=== PATIENT | female | born 1960 | race Caucasian/White ===

== ENCOUNTER 2023-10-29 15:25 | Outpatient (OUT) | payer OTHER, SELFPAY ==
--- NOTE | 2023-10-29 15:27 | MM_ITS ---
Patient Name: DEEPA ZAYAS MR#: [id number] : 1960 Exam Date: 10/29/2023 Ordering Doctor: DR Tano Kimball . RADIOLOGY REPORT PROCEDURE: MM TOMOSYNTHESIS SCREENING BI COMPARISON: MG MAMM SCREEN 3D DALE CAD, 10/20/2022. MG MAMM DALE SCRN W CAD DIG, 08/12/2016. MG MAMM DALE SCRN W CAD DIG, 12/06/2013. MG MAMM DALE SCRN W CAD DIG, 01/06/2005. INDICATIONS: screening Calculator Name NCI Breast Cancer Risk Assessment Tool 5 Year Breast Cancer Risk 3.20% Lifetime Breast Cancer Risk 13.20% Personal Breast Cancer No Personal Ovarian Cancer No Treatments None Family Cancers Mother with breast cancer at age 75; Grandmother-maternal with breast cancer at age ~70. LOCATION: [facility] BREAST COMPOSITION: Scattered areas fibroglandular density. FINDINGS: DIAGNOSTIC CATEGORY 1--NEGATIVE. RIGHT BREAST: No significant suspicious finding. No significant change has occurred. LEFT BREAST: No significant suspicious finding. No significant change has occurred. RECOMMENDATIONS: ROUTINE MAMMOGRAM AND CLINICAL EVALUATION IN 12 MONTHS. PLEASE NOTE: A NORMAL MAMMOGRAM DOES NOT EXCLUDE THE POSSIBILITY OF BREAST CANCER. A CLINICALLY SUSPICIOUS PALPABLE LUMP SHOULD BE BIOPSIED. Dictated by: Raymond Neff M.D. on 10/30/2023 at 13:22 Approved by: Raymond Neff M.D. on 10/30/2023 at 13:25
== END 2023-10-29 15:26 | disposition home or self-care (01) ==
LOC: MAMMO 15:25
PROVIDERS: PCP Family Medicine; Visit Provider Family Medicine
DX: Z12.31 Encounter for screening mammogram for malignant neoplasm of breast (principal); Z80.3 Family history of malignant neoplasm of breast
CPT/HCPCS: 77063; 77067

== ENCOUNTER 2024-02-04 15:20 | Outpatient (REF) | payer OTHER, SELFPAY ==
[2024-02-05 14:45] LABS: C. Difficile PCR NEGATIVE (NEGATIVE)
== END 2024-02-04 15:21 | disposition home or self-care (01) ==
LOC: LAB 15:20
PROVIDERS: PCP Family Medicine; Visit Provider Family Medicine
DX: R19.7 Diarrhea, unspecified (principal)
CPT/HCPCS: 87045; 87046; 87427; 87493

== ENCOUNTER 2024-02-11 15:58 | Outpatient (OUT) | payer OTHER, SELFPAY ==
--- NOTE | 2024-02-11 16:03 | US_ITS ---
The [address] [address] Patient Name: DEEPA ZAYAS MRN: [id number] date: 1960 Sex: F Assigned Patient Location: [place] Current Patient Location: Accession/Order Number: [id number] Exam Date: 02/11/2024 16:44 Report Date: 02/12/2024 07:17 At the request of: REAL BAUTISTA Procedure: US right upper quadrant EXAMINATION: US right upper quadrant HISTORY: Right upper quadrant abdominal pain R10.11 COMPARISON: No relevant comparison available. TECHNIQUE: Transabdominal evaluation of the right upper quadrant. FINDINGS: LIVER: Increased echogenicity suggestive of fatty infiltration. Color Doppler demonstrates patent hepatic veins. PORTAL VEIN: Duplex Doppler demonstrates normal hepatopetal flow pattern with flow velocity averaging 33 cm/s. GALLBLADDER: No visible gallstones, wall thickening, or pericholecystic free fluid. Negative sonographic Chapman's sign. BILIARY: Mildly dilated common bile duct, 7.5 mm proximally, with tapering to normal caliber distally. No appreciable stones or mass. PANCREASE: No visible mass, abnormal atrophy, or duct dilation. KIDNEY: Dilated renal pelvis and several dilated calyces. Size: 12.7 x 6.6 x 3.8 cm US/US right upper quadrant IMPRESSION: 1. Mildly dilated common bile duct without appreciable stones, mass, or evidence of acute cholecystitis. 2. Mild right hydronephrosis of uncertain etiology. No appreciable stones or mass. Consider CT abdomen and pelvis without and with IV contrast for further evaluation if clinically indicated. Electronically authenticated by: HAYES SINGH Date: 02/12/2024 07:17
--- OUTSIDE RECORDS SUMMARY | 2024-02-11 16:11 | XMS_ITS | CCD ---
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, DR NOBLE Primary Care Unavailable EDDIE OROSCO Consulting Unavailable HOY ., DR NOBLE Consulting Unavailable HOY ., DR NOBLE Attending Unavailable HOY ., DR NOBLE Admyordan Unavailable HOY ., DR NOBLE Primary Care Unavailable [place], DR CALLY Aguila Consulting Unavailable HOY ., DR NOBLE Consulting Unavailable HOY ., DR NOBLE Attending Unavailable HOY ., DR NOBLE Admyordan Unavailable HOY ., DR NOBLE Primary Care Unavailable CASANDRA ALLEN Attending Unavailable CASANDRA ALLEN Admitting Unavailable BRIANY ., DR NOBLE Primary Care Unavailable CASANDRA ALLEN Consulting Unavailable Real Kimball MD Primary Care Provider [phone] JOHN PINEDA Attending Unavailable CHONG KIMBALLLAS M Referring Unavailable MICHELE REAL M Primary Care Unavailable NUBIA NOGUEIRA Admitting Unavailable NUBIA NOGUEIRA E Attending Unavailable MICHELE REAL M Primary Care Unavailable CALLY ARREAGA Attending Unavailable REAL KIMBALL M Primary Care Unavailable NUBIA NOGUEIRA E Attending Unavailable GRILLIS NUBIA E Referring Unavailable HOY, REAL M Primary Care Unavailable Allergies Allergy Classification Reported Allergen(s) Allergy Type Date of Onset Reaction(s) Facility (1 source) Penicillin Drug Allergy [facility] (1 source) Sulfonamides (Antibiotic) Drug allergy (disorder) [facility] (3 sources) Penicillins; Translations: [PENICILLINS] Propensity to adverse reactions to drug 1 Swelling [facility] (3 sources) sulfabenzamide; Translations: [SULFABENZAMIDE] Drug Allergy 9 [facility] (3 sources) Sulfonamides (Antibiotic); Translations: [SULFA (SULFONAMIDE ANTIBIOTICS)] Propensity to adverse reactions to drug 4 [facility] Medications Current Medications Medication Drug Class(es) Dates Sig (Normalized) Sig (Original) lactobacillus acidophilus [id number] unt / pectin 100 mg oral tablet (1 source) take 1 tablet by mouth once daily at breakfast acidophilus-pectin , citrus 25 million cell -100 mg tablet Take 1 tablet by mouth daily with breakfast. 0 Active leflunomide 20 mg oral tablet (1 source) Antirheumatic Agent Start: 08-11-2018 take 1 tablet by mouth in the morning leflunomide (ARAVA) 20 mg tablet Take 1 tablet (20 mg total) by mouth in the morning. 0 08/11/2018 Active levothyroxine sodium 0.15 mg oral tablet (1 source) l-Thyroxine Start: 07-14-2018 take 1 tablet by mouth in the morning levothyroxine (SYNTHROID, LEVOTHROID) 150 MCG tablet Take 1 tablet (150 mcg total) by mouth in the morning. 0 07/14/2018 Active liothyronine sodium 0.005 mg oral tablet (1 source) l-Triiodothyronine Start: 08-27-2018 take 1 tablet by mouth in the morning liothyronine (CYTOMEL) 5 MCG tablet Take 1 tablet (5 mcg total) by mouth in the morning. 0 08/27/2018 Active loratadine 10 mg oral tablet (1 source) take 1 tablet by mouth in the morning loratadine (CLARITIN) 10 mg tablet Take 1 tablet (10 mg total) by mouth in the morning. 0 Active Multivitamin preparation (1 source) multivitamin (MULTI-DAY ORAL) Take by mouth. 0 Active omeprazole 40 mg delayed release oral capsule (1 source) Proton Pump Inhibitor omeprazole (PriLOSEC) 40 mg capsule Take 20 mg by mouth in the morning and at bedtime. 0 Active peg 3350-sod sulf,mkkn-ger-blu 178.7-7.3-0.5 gram recon soln (1 source) Start: 10-22-2023 End: 10-23-2023 peg 3350-sod sulf,zcra-tbe-rrq 178.7-7.3-0.5 gram recon soln Indications: Family history of malignant neoplasm of colon Take 1 kit by mouth once daily for 1 dose. Please see instructional sheet given by physicians office. 1 each 0 10/22/2023 10/23/2023 Active Turmeric extract (1 source) TURMERIC ORAL Ta ke by mouth daily. 0 Active Completed/Discontinued Medications Medication Drug Class(es) Dates Sig (Normalized) Sig (Original) pantoprazole 40 mg delayed release oral tablet (1 source) Proton Pump Inhibitor Start: 08-04-2018 End: 10-22-2023 pantoprazole (PROTONIX) 40 mg EC tablet 24 hr venlafaxine 37.5 mg extended release oral capsule (1 source) Serotonin and Norepinephrine Reuptake Inhibitor Start: 06-27-2022 End: 10-22-2023 take 1 capsule by mouth every twenty-four hours in the morning venlafaxine XR (EFFEXOR XR) 37.5 mg 24 hr capsule Indications: Vasomotor symptoms due to menopause Take 1 capsule (37.5 mg total) by mouth in the morning. 30 capsule 2 06/27/2022 10/22/2023 Discontinued (Therapy completed) Problems Active Problems Problem Classification Problem Date Documented Da te Episodic/Chronic Acute bronchitis (5 sources) Acute bronchitis, unspecified; Translations: [ACUTE BRONCHITIS UNSPECIFIED] Onset: 04-05-2022 Episodic Other screening for suspected conditions (not mental disorders or infectious disease) (5 sources) Encounter for screening mammogram for malignant neoplasm of breast; Translations: [Encounter for screening for malignant neoplasm, site unspecified] Onset: 10-20-2022 Episodic Residual codes; unclassified (1 source) Family history of malignant neoplasm of breast; Translations: [FAMILY HX MALIG NEOPLASM OF BREAST] Onset: 10-24-2022 Episodic Residual codes; unclassified (1 source) Family history of cancer of colon; Translations: [Family history of malignant neoplasm of digestive organs] 10-22-2023 Episodic Residual codes; unclassified (2 sources) Family history of malignant neoplasm of digestive organs; Translations: [Family history of malignant neoplasm of digestive organs] Onset: 10-22-2023 Episodic Unclassified (3 sources) CONTACT W/AND (SUSP) EXPOS COVID-19; Translations: [CONTACT W/AND (SUSP) EXPOS COVID-19] Onset: 04-05-2022 Unclassified (1 source) Colon Cancer Screening Onset: 10-22-2023 Unclassified (1 source) family history of colon cancer Onset: 11-05-2023 Viral infection (1 source) COVID-19; Translations: [COVID-19] Onset: 04-05-2022 Past or Other Problems Problem Classification Problem Date Documented Da te Episodic/Chronic Other aftercare (1 source) 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; Translations: [OTH FDC CURRENT DRUG THERAPY] Onset: 04-15-2022 Episodic Other lower respiratory disease (4 sources) Shortness of breath; Translations: [SHORTNESS OF BREATH] Onset: 04-14-2022 Episodic Screening and history of mental health and substance abuse codes (1 source) Personal history of nicotine dependence; Translations: [PERSONAL HISTORY OF NICOTINE DEPEND] Onset: 04-15-2022 Episodic Unclassified (1 source) CONTACT W/AND (SUSP) EXPOS COVID-19; Translations: [CONTACT W/AND (SUSP) EXPOS COVID-19] Onset: 04-02-2022 Results Test Name Value Interpretation Reference Range Facility XR CHEST 2 Von 12-24-2022 XR CHEST 2 V EXAM: XR CHEST 2 V HISTORY: Acute bronchitis . Cough for 2 months. COMPARISON: 03/22/2019 TECHNIQUE: Upright PA and lateral chest x-ray FINDINGS: The heart is not enlarged and the vasculature is not distended. No acute infiltrate, effusion or pneumothorax is identified. The osseous structures are grossly intact. IMPRESSION: No acute infiltrate or evidence of cardiac decompensation. The overall appearance of the chest is unchanged. Electronically authenticated by: EDDIE OROSCO Date: 2022-12-24 16:25 Normal [facility] MG MAMM SCREEN 3D DALE CADon 10-20-2022 MG MAMM SCREEN 3D DALE CAD Patient: CHANA DEEPA Jeffery Exam Date: 10/20/2022 : 1960 Gender:F Ordering : DR REAL KIMBALL . Admission #: [id number] Family : Order #: [id number] CLICK HERE TO VIEW EXAM RADIOLOGY REPORT PROCEDURE: MAMMOGRAM SCREENING 3D BILATERAL CAD COMPARISON: MG MAMM DALE SCRN W CAD DIG, 12/06/2013. MG MAMM DALE SCRN W CAD DIG, 08/12/2016. INDICATIONS: Screening mammography Calculator Name NCI Breast Cancer Risk Assessment Tool 5 Year Breast Cancer Risk 3.10% Lifetime Breast Cancer Risk 13.60% Personal Breast Cancer No Personal Ovarian Cancer No Treatments None Family Cancers Mother with breast cancer at age 75; Grandmother-maternal with breast cancer at age 70. LOCATION: [facility] BREAST COMPOSITION: Heterogeneously dense,which may obscure small masses. FINDINGS: DIAGNOSTIC CATEGORY 2--BENIGN FINDING. NO CHANGE FROM COMPARISON. Scattered benign-appearing calcifications are present. Scattered benign-appearing lymph nodes are present. Scattered benign-appearing nodules are present. RIGHT BREAST: No significant suspicious finding. LEFT BREAST: No significant suspicious finding. RECOMMENDATIONS: ROUTINE MAMMOGRAM AND CLINICAL EVALUATION IN 12 MONTHS. PLEASE NOTE: A NORMAL MAMMOGRAM DOES NOT EXCLUDE THE POSSIBILITY OF BREAST CANCER. A CLINICALLY SUSPICIOUS PALPABLE LUMP SHOULD BE BIOPSIED. Dictated by: Cally Sevilla MD on 10/20/2022 at 11:53 Approved by: Cally Sevilla MD on 10/20/2022 at 12:00 Normal [facility] Covid-19 PCR (CVDTB)on SARS-CoV-2 (COVID-19) RNA EMMANUEL+probe Ql (Unsp spec) Not detected Normal NOT DETECTED [facility] Comment on above: Result Comment: When diagnostic testing is negative, the possibility of a false negative should be considered in the context of a patient's recent exposures and the presence of clinical signs and symptoms consistent with SARS-CoV-2. This test is not yet approved or cleared by the [place] FDA. When there are no FDA-approved or cleared tests available, and other criteria are met, FDA can make tests available under an emergency access mechanism called an Emergency Use Authorization (EUA). The EUA for this test is supported by the Diver Pumper of Health and Human Service's declaration that circumstances exist to justify the emergency use of in vitro diagnostics for the detection and/or diagnosis of the virus that causes COVID-19. This EUA will remain in effect for the duration of the COVID-19 declaration justifying emergency of IVDs, unless it is terminated or revoked by the FDA (after which the test may no longer be used). Performed By: #### C VDTBH #### [facility] [address] [place] [address] Dr. Cindi Iniguez INFLUENZA A AND B AGon 10-08 [facility] SEE BELOW Normal [facility] Comment on above: Result Comment: Nega tive for Flu A protein angiten. Infection due to Flu A cannot be ruled out. Flu A angiten in the sample may be below the detection limit of the test. Performed By: #### C MP, BNP, HSTROPN #### [facility] [address] [place] [address] Dr. Cindi Iniguez INFLUBNEGH SEE BELOW Normal [facility] Comment on above: Result Comment: Nega tive for Flu B protein antigen. Infection due to Flu B cannot be ruled out. Flu B antigen in the sample may be below the detection limit of the test. Performed By: #### C MP, BNP, HSTROPN #### [facility] [address] [address] [address] Cindi Iniguez INFLUENZA A AG Negative Normal NEGATIVE SEE COMMENT [facility] Comment on above: Performed By: #### C MP, BNP, HSTROPN #### [facility] [address] [place] [address] Dr. Cindi Iniguez INFLUENZA B AG Negative Normal NEGATIVE SEE COMMENT [facility] Comment on above: Performed By: #### C MP, BNP, HSTROPN #### [facility] [address] [place] [address] Dr. Cindi Inigue[facility]09 SARS-CoV-2 (COVID-19) RNA EMMANUEL+probe Ql (Unsp spec) Not detected Normal NOT DETECTED [facility] Comment on above: Result Comment: When diagnostic testing is negative, the possibility of a false negative should be considered in the context of a patient's recent exposures and the presence of clinical signs and symptoms consistent with SARS-CoV-2. This test is not yet approved or cleared by the [place] FDA. When there are no FDA-approved or cleared tests available, and other criteria are met, FDA can make tests available under an emergency access mechanism called an Emergency Use Authorization (EUA). The EUA for this test is supported by the Diver Pumper of Health and Human Service's declaration that circumstances exist to justify the emergency use of in vitro diagnostics for the detection and/or diagnosis of the virus that causes COVID-19. This EUA will remain in effect for the duration of the COVID-19 declaration justifying emergency of IVDs, unless it is terminated or revoked by the FDA (after which the test may no longer be used). Performed By: #### C VDTBH #### [facility] [address] [place] [address] Dr. Cindi Iniguez BNPon 04-14-2022 Natriuretic peptide B (Bld) [Mass/Vol] 583.0 pg/mL Normal <=900.0 [facility] Comment on above: Performed By: #### C MP, BNP, HSTROPN #### [facility] [address] [place] [address] Dr. Cindi Iniguez CBC AUTO DIFFon 04-14-2022 BASO # 0.0 103/ul Normal 0.0-0.1 [facility] Comment on above: Performed By: #### C BC #### [facility] [address] [place] [address] Dr. Cindi Iniguez Basophils/100 WBC (Bld) 0.2 % Normal 0.2-2.0 [facility] Comment on above: Performed By: #### C BC #### [facility] [address] [place] [address] Dr. Cindi Iniguez EO # 0.0 103/ul Normal 0.0-0.7 [facility] Comment on above: Performed By: #### C BC #### [facility] [address] [place] [address] Dr. Cindi Iniguez Eosinophils/100 WBC (Bld) 0.3 % Critically low 0.9-7.0 [facility] Comment on above: Performed By: #### C BC #### [facility] [address] [place] [address] Dr. Cindi Iniguez Erythrocyte distribution width (RBC) [Ratio] 12.6 % Normal 11.0-15.0 [facility] Comment on above: Performed By: #### C BC #### [facility] [address] [place] [address] Dr. Cindi Iniguez Hematocrit (Bld) [Volume fraction] 43.3 % Normal 36.0-48.0 [facility] Comment on above: Performed By: #### C BC #### [facility] [address] [place] [address] Dr. Cindi Iniguez Hemoglobin (Bld) [Mass/Vol] 14.5 g/dL Normal 12.0-16.0 [facility] Comment on above: Performed By: #### C BC #### [facility] [address] [place] [address] Dr. Cindi Iniguez IG # 0.07 10e3/ul Critically high 0.00-0.03 [facility] Comment on above: Performed By: #### C BC #### [facility] [address] [place] [address] Dr. Cindi Iniguez IG % 0.5 % Normal 0.0-0.5 [facility] Comment on above: Performed By: #### C BC #### [facility] [address] [place] [address] Dr. Cindi Iniguez LYMPH # 1.8 103/ul Normal 1.2-3.8 [facility] Comment on above: Performed By: #### C BC #### [facility] [address] [place] [address] Dr. Cindi Iniguez Lymphocytes/100 WBC (Bld) 12.9 % Critically low 20.5-60.0 [facility] Comment on above: Performed By: #### C BC #### [facility] [address] [place] [address] Dr. Cindi Iniguez MANUAL DIFF REQ NO Normal [facility] Comment on above: Performed By: #### C BC #### [facility] [address] [place] [address] Dr. Cindi Iniguez MCH (RBC) [Entitic mass] 30.5 pg Normal 26.7-34.0 [facility] Comment on above: Performed By: #### C BC #### [facility] [address] [address] [address] Cindi Iniguez MCHC (RBC) [Mass/Vol] 33.5 g/dL Normal 29.9-35.2 [facility] Comment on above: Performed By: #### C BC #### [facility] [address] [address] [address] Cindi Iniguez MCV (RBC) [Entitic vol] 91.0 fL Normal 81.0-99.0 [facility] Comment on above: Performed By: #### C BC #### [facility] [address] [address] [address] Cindi Iniguez MONO # 1.0 103/ul Critically high 0.3-0.8 [facility] Comment on above: Performed By: #### C BC #### [facility] [address] [place] [address] Dr. Cindi Iniguez Monocytes/100 WBC (Bld) 7.1 % Normal 1.7-12.0 [facility] Comment on above: Performed By: #### C BC #### [facility] [address] [address] [address] Cindi nIiguez NEUT # 10.9 103/ul Critically high 1.4-6.5 The [facility] Comment on above: Performed By: #### C BC #### [facility] [address] [address] [address] Cindi Iniguez Neutrophils/100 WBC (Bld) 79.0 % Critically high 43.0-75.0 [facility] Comment on above: Performed By: #### C BC #### [facility] [address] [address] [address] Cindi Iniguez Platelet mean volume (Bld) [Entitic vol] 8.8 fL Critically low 9.5-13.5 [facility] Comment on above: Performed By: #### C BC #### [facility] [address] [address] [address] Cindi Iniguez PLT 207 103/ul Normal 150-450 [facility] Comment on above: Performed By: #### C BC #### [facility] [address] [address] [address] Cindi Iniguez RBC 4.76 106/ul Normal 4.20-5.40 [facility] Comment on above: Performed By: #### C BC #### [facility] [address] [address] [address] Cindi Iniguez WBC 13.8 103/ul Critically high 4.0-11.0 [facility] Comment on above: Performed By: #### C BC #### [facility] [address] [address] [address] Cindi Iniguez CTA CHEST WO W CONon CTA CHEST WO W CON EXAMINATION:CTA CHEST WO W CON INDICATION:SHORTNESS OF BREATH, recent Covid. COMPARISON:None TECHNIQUE:Thin section transaxial slices were acquired through the chest. Coronal and sagittal reconstructed images were reviewed. IV CONTRAST:With FINDINGS: LUNGS: There is some very minimal breathing motion artifact with mild bibasilar atelectatic changes present. No suspicious airspace disease is present to suggest infection. PLEURAL CAVITY: No pleural effusion. MEDIASTINUM: Trachea and central airways are patent. HEART: There is no right heart strain. VASCULAR:The thoracic aorta is normal in caliber without aneurysm or dissection. No pulmonary arterial filling defects are present. LYMPH NODES:No suspicious lymphadenopathy. CHEST WALL/AXILLA: Chest wall and axilla are unremarkable. BONES: Unremarkable. VISUALIZED UPPER ABDOMEN: Upper abdominal structures are unremarkable. IMPRESSION: Unremarkable CT angiogram of the chest. Electronically authenticated by: HERNÁN BAR Date: 2022-04-14 16:28 Normal [facility] PROF 14(COMP METB)on Albumin [Mass/Vol] 3.5 g/dL Normal 3.4-5.0 [facility] Comment on above: Performed By: #### C MP, BNP, HSTROPN #### [facility] [address] [address] [address] Cindi Iniguez Albumin/Globulin [Mass ratio] 1.0 {ratio} Normal [facility] Comment on above: Performed By: #### C MP, BNP, HSTROPN #### [facility] [address] [place] [address] Dr. Cindi Iniguez ALP [Catalytic activity/Vol] 64 U/L Normal 46-116 [facility] Comment on above: Performed By: #### C MP, BNP, HSTROPN #### [facility] [address] [place] [address] Dr. Cindi Iniguez ALT [Catalytic activity/Vol] 44 U/L Normal 14-59 [facility] Comment on above: Performed By: #### C MP, BNP, HSTROPN #### [facility] [address] [place] [address] Dr. Cindi Iniguez Anion gap [Moles/Vol] 12.5 mmol/L Normal [facility] Comment on above: Performed By: #### C MP, BNP, HSTROPN #### [facility] [address] [place] [address] Dr. Cindi Iniguez AST [Catalytic activity/Vol] 21 U/L Normal 15-37 [facility] Comment on above: Performed By: #### C MP, BNP, HSTROPN #### [facility] [address] [place] [address] Dr. Cindi Iniguez Bilirubin [Mass/Vol] 0.3 mg/dL Normal 0.2-1.0 [facility] Comment on above: Performed By: #### C MP, BNP, HSTROPN #### [facility] [address] [place] [address] Dr. Cindi Iniguez Calcium [Mass/Vol] 9.1 mg/dL Normal 8.5-10.1 [facility] Comment on above: Performed By: #### C MP, BNP, HSTROPN #### [facility] [address] [place] [address] Dr. Cindi Iniguez Chloride [Moles/Vol] 97 mmol/L Critically low 98-107 [facility] Comment on above: Performed By: #### C MP, BNP, HSTROPN #### [facility] [address] [address] [address] Cindi Iniguez CO2 [Moles/Vol] 29.8 mmol/L Normal 21.0-32.0 [facility] Comment on above: Performed By: #### C MP, BNP, HSTROPN #### [facility] [address] [place] [address] Dr. Cindi Iniguez Creatinine [Mass/Vol] 1.06 mg/dL Critically high 0.55-1.02 [facility] Comment on above: Performed By: #### C MP, BNP, HSTROPN #### [facility] [address] [place] [address] Dr. Cindi Iniguez EGFR-AF HUNGARIAN >60 Normal >=60 [facility] Comment on above: Performed By: #### C MP, BNP, HSTROPN #### [facility] [address] [place] [address] Dr. Cindi Iniguez EGFR-NON AF HUNGARIAN 53 mL/min/1.73m2 Critically low >=60 [facility] Comment on above: Performed By: #### C MP, BNP, HSTROPN #### [facility] [address] [place] [address] Dr. Cindi Iniguez Globulin (S) [Mass/Vol] 3.6 g/dL Normal [facility] Comment on above: Performed By: #### C MP, BNP, HSTROPN #### [facility] [address] [place] [address] Dr. iCndi Iniguez Glucose [Mass/Vol] 109 mg/dL Critically high 74-[address] [facility] Comment on above: Performed By: #### C MP, BNP, HSTROPN #### [facility] [address] [place] [address] Dr. Cindi Iniguez Potassium [Moles/Vol] 4.3 mmol/L Normal 3.5-5.1 [facility] Comment on above: Performed By: #### C MP, BNP, HSTROPN #### [facility] [address] [place] [address] Dr. Cindi Iniguez Protein [Mass/Vol] 7.1 g/dL Normal 6.4-8.2 [facility] Comment on above: Performed By: #### C MP, BNP, HSTROPN #### [facility] [address] [place] [address] Dr. Cindi Iniguez Sodium [Moles/Vol] 135 mmol/L Critically low 136-145 [facility] Comment on above: Performed By: #### C MP, BNP, HSTROPN #### [facility] [address] [place] [address] Dr. Cindi Iniguez Urea nitrogen [Mass/Vol] 17.0 mg/dL Normal 7.0-18.0 [facility] Comment on above: Performed By: #### C MP, BNP, HSTROPN #### [facility] [address] [place] [address] Dr. Cindi Iniguez Urea nitrogen/Creatinine [Mass ratio] 16.0 mg/mg Normal [facility] Comment on above: Performed By: #### C MP, BNP, HSTROPN #### [facility] [address] [place] [address] Dr. Cindi Iniguez PROTIMEon 04-14-2022 INR Coag (PPP) [Relative time] 0.93 {INR} Normal [facility] Comment on above: Performed By: #### P TT, PT #### [facility] [address] [place] [address] Dr. Cindi Iniguez INR GUIDELINES SEE BELOW Normal [facility] Comment on above: Result Comment: MESSI RED INR: 2.0 - 3.0 CONDITIONS NOT LISTED BELOW 2.5 - 3.5 FOR PROSTHETIC HEART VALVE REPLACEMENT 2.5 - 3.5 RECURRENT THROMBOSIS Performed By: #### P TT, PT #### [facility] [address] [place] [address] Dr. Cindi Iniguez PT Coag (PPP) [Time] 10.1 s Normal 9.0-11.6 [facility] Comment on above: Performed By: #### P TT, PT #### [facility] [address] [place] [address] Dr. Cindi Iniguez PTTon 04-14-2022 aPTT Coag (Bld) [Time] 23.8 s Normal 22.3-36.2 [facility] Comment on above: Performed By: #### C MP, BNP, HSTROPN #### [facility] [address] [address] [address] Cindi Iniguez TROPONIN, HIGH SENSITIVITYon 04-14-2022 HSTROP 27.4 pg/mL Normal 4.0-51.3 [facility] Comment on above: Result Comment: CUT- OFF POINTS HAVE BEEN ESTABLISHED BASED ON THE FOURTH UNIVERSAL DEFINITIONS OF MYOCARDIAL INFARCTION. THE UPPER REFERENCE LIMIT (URL) OF TROPONIN, DEFINED THE 99TH PERCENTILE OF cTnI DISTRIBUTION IN A REFERENCE POPULATION, HAS BEEN CONFIRMED THE DECISION THRESHOLD FOR OR DIAGNOSIS. Performed By: #### C MP, BNP, HSTROPN #### [facility] [address] [place] [address] Dr. Cindi Inigue[facility]08 SARS-CoV-2 (COVID-19) RNA EMMANUEL+probe Ql (Unsp spec) Detected Critically abnormal NOT DETECTED [facility] Comment on above: Result Comment: This test is not yet approved or cleared by the [place] FDA. When there are no FDA-approved or cleared tests available, and other criteria are met, FDA can make tests available under an emergency access mechanism called an Emergency Use Authorization (EUA). The EUA for this test is supported by the [place] of Health and Human Service's (HHS's) declaration that circumstances exist to justify the emergency use of in vitro diagnostics for the detection and/or diagnosis of the virus that causes COVID-19. This EUA will remain in effect (meaning this test can be used) for the duration of the COVID-19 declaration justifying emergency of IVDs, unless it is terminated or revoked by FDA (after which the test may no longer be used). Performed By: #### C MP, BNP, HSTROPN #### [facility] [address] [place] [address] Dr. Cindi Iniguez Vital Signs Date Time Vital Sign Value Performing Clinician Faci lity 10-22-2023 15:23-0500 Body mass index (BMI) [Ratio] 36.39 kg/m2 John Pineda [employer] Work Phone: [facility] 10-22-2023 15:23-0500 Body weight 96.16 kg John Pineda [employer] Work Phone: [facility] Encounters Encounter Date Encounter Type Care Provider Facility Start: 11-06-2023 End: 11-06-2023 Evaluation and management of inpatient CALLY ARREAGA [facility] Start: 11-05-2023 End: 11-06-2023 Evaluation and management of inpatient NUBIA NOGUEIRA [facility] Start: 10-22-2023 ambulatory [facility] Jennifer PINEDA [facility] Start: 10-22-2023 End: 10-22-2023 Office outpatient new 30 minutes John Rodriguez Ross [employer] Work Phone: [facility] Comment on above: Family history of ma lignant neoplasm of colon (Primary Dx) Start: 12-24-2022 End: 12-25-[address] REAL KIMBALL . Facility:[facility] Start: 10-20-2022 End: 10-21-[address] REAL KIMBALL . Facility:[facility] Start: 10-08-2022 End: 10-08-[address] REAL KIMBALL . Facility:[facility] Start: 08-05-2022 End: 08-05-2022 ambulatory CASANDRA ALLEN Facility:[facility] Start: 04-14-2022 End: 04-14-2022 ambulatory AVREY MCKNIGHT Facility:[facility] Start: 04-02-2022 End: 04-02-[address] REAL KIMBALL . Facility:[facility] Start: 02-20-[address] REAL KIMBALL . Facili ty:[facility] Procedures Date Procedure Procedure Detail Performing Clinician Start: 10-11-2018 Colonoscopy John Caitlin núñez [employer] Work Phone: Plan of Treatment Date Care Activity Detail Author Start: 10-22-2024 Adult BMI Screening Adult BMI Screen ing [facility] Start: 10-22-2024 Tobacco Screening Tobacco Screening [facility] Start: 11-05-2023 End: 11-05-2023 Admission to same day surgery center 11/05/2023 11:00 AM EST - 11/05/2023 11:30 AM EST Surgery [facility] [address] [place] [address] Nubai Nogueira, DO [address] [place], [place] [id number] COLONOSCOPY DIAGNOSTIC / SCREENING [37553 (CPT )] [facility] Comment on above: COLONOSCOPY DIAGNOST IC / SCREENING [96468 (CPT )] Start: 11-05-2023 End: 11-05-2023 Colonoscopy flx dx w/collj spec when pfrmd COLONOSCOPY DIAGNOSTIC / SCREENING Family history of colon cancer 11/05/2023 11:00 AM [facility] Start: 11-05-2023 Subsequent hospital visit by physician 11/05/2023 11:00 AM EST Hospital Encounter [facility] [address] [place] [address] [phone] Nubia Nogueira, DO [address] [place], [place] [id number] [facility] Start: 10-29-2023 End: 10-29-2023 ambulatory 10/29/2023 2:10 PM EST Support Visit [facility] - Pre Admit [address] [place] [address] [facility] - Pre Admit Start: 10-11-2023 Screening for malign ant neoplasm of colon Colonoscopy [facility] Start: 2010 Administration of varicella zoster vaccine Zoster (Shingles) Vaccine (1 of 2) [facility] Start: 1979 DTaP,Tdap and Td Vac cines (1 - Tdap) DTaP,Tdap and Td Vaccines (1 - Tdap) [facility] Start: 1978 Adult BMI Follow Up Plan Adult BMI Follow Up Plan [facility] Start: 1972 [facility] End: 10-22-2024 Colonoscopy Colonoscopy GI Routine Family history of malignant neoplasm of colon 1 Occurrences starting 10/22/2023 until 10/22/2024 [employer] Work Phone: Comment on above: 1 Occurrences starti ng 10/22/2023 until 10/22/2024 Payers Date Payer Category Payer Private Health Insurance [facility] PLUS [id number] 2023-Present [phone] [address] [address] [place] [address] [id number] 1960 Unknown [id number] [id number]. 2.593 1960 Unknown [id number] 2.16.840.1.245530.3.579. 2.593 1960 Unknown [id number] 2.16.840.1.827791.3.579. 2.593 1960 Unknown [id number] 2.16.840.1.914458.3.579. 2.593 1960 Unknown [id number] 2.16.840.1.460485.3.579. 2.593 1960 Unknown [id number] 2.16.840.1.743138.3.579. 2.593 1960 Unknown [id number] 2.16.840.1.141822.3.579. 2.593 1960 Unknown [id number] 2.16.840.1.485560.3.579. 2.1286 1960 Unknown [id number] 2.16.840.1.403270.3.579. 2.1286 1960 Unknown [id number] 2.16.840.1.056141.3.579. 2.1286 1960 Unknown [id number] 2.16.840.1.597898.3.579. 2.1286 1960 Unknown [id number] 2.16.840.1.627028.3.579. 2.1286 1959 Private Health Insurance [id number] Self-pay [id number] Social History Date Type Detail Facility Start: 12-31-2022 Tobacco smoking stat [facility] Ex-smoker [facility] End: 08-28-1998 History of tobacco use Current smoker [facility] End: 08-28-1998 History of tobacco use Cigarette Smoker [facility] Start: 12-31-2022 Tobacco use and exposure Smoke less tobacco non-user [facility] Start: 10-22-2023 Alcohol intake Current drinke r of alcohol (finding) [facility] Start: 10-18-2020 End: 12-30-2021 History of Social function [facility] Work Phone: Start: 10-18-2020 End: 12-30-2021 Alcohol Use Disorder Identification Test - Consumption [AUDIT-C] [facility] Work Phone: How often to you hav e a drink containing alcohol? Monthly or less [facility] Work Phone: How many standard dr inks containing alcohol do you have on a typical day? 5 or 6 [facility] How often do you hav e 6 or more drinks on 1 occasion? Less than monthly [facility] Childcare Unknown 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 Chief Complaint: Family history of colon cancer History of Present Illness Deepa Sears is a 63 y.o. female who presents to the office for colonoscopy due to family history of colon cancer. Her mother had colon cancer and was diagnosed in her late 60s. Patient denies diarrhea, constipation, abdominal pain, melena, hematochezia, unexplained weight loss. Her last colonoscopy was in [address] Nogueira and was normal. Review of Systems Constitutional: Negative for fever and unexpected weight change. HENT: Negative for trouble swallowing. Respiratory: Positive for shortness of breath. SOB with exertion Cardiovascular: Negative for chest pain. Gastrointestinal: Negative for nausea, vomiting, abdominal pain, diarrhea, constipation and blood in stool. Genitourinary: Negative for dysuria and difficulty urinating. Musculoskeletal: Negative for gait problem. Skin: Negative for rash and wound. Neurological: Negative for dizziness, weakness and light-headedness. Hematological: Does not bruise/bleed easily. Psychiatric/Behavioral: Negative for confusion. Past Medical History: Diagnosis Date Arthritis Hypothyroidism Thyroid disease Visual impairment Past Surgical History: Procedure Laterality Date COLONOSCOPY N/A 10/11/2018 Performed by Nubia Nogueira DO at [facility] ESOPHAGOGASTRODUODENOSCOPY N/A 07/04/2021 Performed by Nubia Nogueira DO at [facility] HYSTERECTOMY 2008 OOPHORECTOMY Allergies Allergen Reactions Penicillins Swelling Sulfabenzamide Swelling Lips swell Sulfa (Sulfonamide Antibiotics) Current Outpatient Medications: acidophilus-pectin, citrus 25 million cell -100 mg tablet, Take 1 tablet by mouth daily with breakfast., Disp: , Rfl: leflunomide (ARAVA) 20 mg tablet, Take 1 tablet (20 mg total) by mouth in the morning., Disp: , Rfl: levothyroxine (SYNTHROID, LEVOTHROID) 150 MCG tablet, Take 1 tablet (150 mcg total) by mouth in the morning., Disp: , Rfl: liothyronine (CYTOMEL) 5 MCG tablet, Take 1 tablet (5 mcg total) by mouth in the morning., Disp: , Rfl: loratadine (CLARITIN) 10 mg tablet, Take 1 tablet (10 mg total) by mouth in the morning., Disp: , Rfl: multivitamin (MULTI-DAY ORAL), Take by mouth., Disp: , Rfl: omeprazole (PriLOSEC) 40 mg capsule, Take 20 mg by mouth in the morning and at bedtime., Disp: , Rfl: TURMERIC ORAL, Take by mouth daily., Disp: , Rfl: peg 3350-sod sulf,ovto-tni-aho 178.7-7.3-0.5 gram recon soln, Take 1 kit by mouth once daily for 1 dose. Please see instructional sheet given by physicians office., Disp: 1 each, Rfl: 0 Social History Socioeconomic History Marital status: Spouse name: Not on file Number of children: Not on file Years of education: Not on file Highest education level: Not on file Occupational History Not on file Tobacco Use Smoking status: Former Types: Cigarettes Quit date: 08/28/1998 Years since quittin.1 Smokeless tobacco: Never Vaping Use Vaping Use: Never used Substance and Sexual Activity Alcohol use: Yes Comment: social Drug use: No Sexual activity: Defer Comment: hysterectomy Other Topics Concern Not on file Social History Narrative Not on file Social Determinants of Health Financial Resource Strain: Not on file Food Insecurity: Not on file Transportation Needs: Not on file Physical Activity: Not on file Stress: Not on file Social Connections: Not on file Interpersonal Safety: Not on file Housing Instability: Not on file Family History Problem Relation Age of Onset Breast cancer Mother 70 Colon cancer Mother COPD Mother Heart disease Mother No Known Problems Father Epilepsy Brother Diabetes Brother Objective Physical Exam Constitutional: General: She is not in acute distress. Appearance: Normal appearance. She is obese. She is not ill-appearing. HENT: Head: Normocephalic and atraumatic. Mouth/Throat: Mouth: Mucous membranes are moist. Eyes: Pupils: Pupils are equal, round, and reactive to light. Cardiovascular: Rate and Rhythm: Normal rate. Pulmonary: Effort: Pulmonary effort is normal. No respiratory distress. Abdominal: General: There is no distension. Palpations: Abdomen is soft. Tenderness: There is no abdominal tenderness. There is no guarding. Musculoskeletal: General: Normal range of motion. Skin: General: Skin is warm and dry. Neurological: Mental Status: She is alert and oriented to person, place, and time. Mental status is at baseline. Vital Signs: Weight 96.2 kg (212 lb). Respiratory Source: No data recorded Admission Weight: Weight: 96.2 kg (212 lb) Labs No results found for: WBC , HGB , HCT , MCV , PLT No results found for: GLU , CALCIUM , NA , K , CO2 , CL , BUN , CREATININE No results found for: AMYLASE No results found for: LIPASE No results found for: ALT , AST , GGT , ALKPHOS , LABBILI No results found for: INR , PROTIME Assessment Deepa Sears is a 63 y.o.female who presents to the office for colonoscopy due to family history of colon cancer. Plan Colonoscopy with possible biopsy and/or polypectomy. Risks, benefits, and alternatives discussed with patient. Educated on bowel evacuation preparation. Patient verbalizes understanding and wishes to proceed. Evaluation included: Preparing to see the patient (e.g., review of tests) Obtaining and/or reviewing separately obtained history Performing a medically appropriate examination and/or evaluation Counseling and educating the patient/family/caregiver Referring and communicating with other health lead care manager Family history of malignant neoplasm of colon [Z80.0] BETTY SMITH [facility] [place] This note was created with the assistance of a speech recognition program. While intending to generate a timely document that accurately reflects the content of the visit, no guarantee can be provided that every grammatical or spelling mistake has been or will be identified or corrected. Thank you for your understanding. BETTY Smith 10/22/23 1550 documented in this encounter [facility] Evaluation note Note Date & Type Note Facility Evaluation note Diagnosis Family history of malignant neoplasm of colon- Primary Family history of colon cancer Family history of malignant neoplasm of gastrointestinal tract documented in this encounter [facility] Instructions Note Date & Type Note Facility Instructions Not on filedocumented in this en counter [facility] Summary Purpose Family History No Family History Records FoundNo Family History Records FoundNo Family History Records Found Advance Directives No Advanced Directives Records FoundNo Advanced Directives Records FoundNo Advanced Directives Records Found Additional Source Comments INFORMATION SOURCE (unrecogn ized section and content) DATE CREATED AUTHOR 12/28/2022 [facility] DATE CREATED AUTHOR AUTHOR'S ORGANIZ ATION 10/28/2023 [facility] DATE CREATED AUTHOR AUTHOR'S ORGANIZ ATION 11/07/2023 [facility] Reason for Visit (unrecogniz ed section and content) Reason Comments Colon Cancer Screening 5 year recall, sam finley history of colon cancer Care Teams (unrecognized sec tion and content) [employer]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 This clinical summary was aggregated from multiple sources. Caution should be exercised in using it in the provision of clinical care. This summary normalizes information from multiple sources, and as a consequence, information in this document may materially change the coding, format and clinical context of patient data. In addition, data may be omitted in some cases. CLINICAL DECISIONS SHOULD BE BASED ON THE PRIMARY CLINICAL RECORDS. [employer] [facility]. provides no warranty or guarantee of the accuracy or completeness of information in this document.
== END 2024-02-11 15:59 | disposition home or self-care (01) ==
LOC: US 15:58
PROVIDERS: PCP Family Medicine; Visit Provider Family Medicine
DX: R10.11 Right upper quadrant pain (principal); N13.30 Unspecified hydronephrosis
CPT/HCPCS: 76705

== ENCOUNTER 2024-02-15 06:08 | Emergency (ER) | payer OTHER, SELFPAY ==
[2024-02-15] VITALS (10 sets, daily range): BP systolic 132–151; BP diastolic 62–95; PULSE 78–80; TEMP 36.6–36.8; O2SAT 92–99; BMI 30.9
--- OUTSIDE RECORDS SUMMARY | 2024-02-15 06:14 | XMS_ITS | CCD ---
Author Organization [facility] Care Team Providers Care Muck Operator Name Role Phone AVERY MCKNIGHT Attending Unavailable HOY ., DR NOBLE Primary Care Unavailable KAYLI ., DEEPTI PHILLIP Consulting Unavailabl e AVERY MCKNIGHT Admitting Unavailable STRAWSER HRENÁN Consulting Unavailable HOY ., DR NOBLE Attending [...] HOY ., DR NOBLE Primary Care Unavailable POLLOCK, DR CALLY Aguila Consulting Unavailable HOY ., DR NOBLE Consulting Unavailable HOY ., DR NOBLE Attending Unavailable HOY ., DR NOBLE Admyordan Unavailable HOY ., DR NOBLE Primary Care Unavailable CASANDRA ALLEN Attending Unavailable CASANDRA ALLEN Admitting Unavailable BRIANY ., DR NOBLE Primary Care Unavailable CASANDRA ALLEN Consulting Unavailable Real Kimball MD Primary Care Provider [phone] JOHN PINEDA Attending Unavailable CHONG KIMBALLLAS M Referring Unavailable MICHELE REAL M Primary Care Unavailable NUBIA NOGUEIRA Admitting Unavailable NUBIA NOGUEIRA E Attending Unavailable MICHELE RAEL M Primary Care Unavailable CALLY ARREAGA Attending Unavailable REAL KIMBALL M Primary Care Unavailable NUBIA NOGUEIRA E Attending Unavailable GRILLIS NUBIA E Referring Unavailable HOY, REAL M Primary Care Unavailable Allergies Allergy Classification Reported Allergen(s) Allergy Type Date of Onset Reaction(s) Facility (1 source) Penicillin Drug Allergy [facility] (1 source) Sulfonamides (Antibiotic) Drug allergy (disorder) [facility] (3 sources) Penicillins; Translations: [PENICILLINS] Propensity to adverse reactions to drug 1 Swelling [facility] (3 sources) sulfabenzamide; Translations: [SULFABENZAMIDE] Drug Allergy 9 [facility] (3 sources) Sulfonamides (Antibiotic); Translations: [SULFA (SULFONAMIDE ANTIBIOTICS)] Propensity to adverse reactions to drug 4 [facility] Medications Current Medications Medication Drug Class(es) Dates Sig (Normalized) Sig (Original) lactobacillus acidophilus [id number] unt / pectin 100 mg oral tablet [...] and at bedtime. 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 Admission #: [id number] Family : Order #: [id number] CLICK HERE TO VIEW EXAM RADIOLOGY REPORT [...] breast cancer at age 70. LOCATION: [facility] BREAST COMPOSITION: Heterogeneously dense,which may obscure small [...] MD on 10/20/2022 at 12:00 Normal [facility] Covid-19 PCR (CVDTB)on SARS-CoV-2 (COVID-19) RNA EMMANUEL+probe Ql (Unsp spec) Not detected Normal NOT DETECTED [facility] Comment on above: Result Comment: When diagnostic [...] for this test is supported by the [place] of Health and Human Service's declaration that [...] used). Performed By: #### C VDTBH #### [facility] [address] [place] [address] Dr. Cindi Iniguez INFLUENZA A AND B AGon 10-08 [facility] SEE BELOW Normal [facility] Comment on above: Result Comment: Nega tive for Flu A protein angiten. Infection due to Flu A cannot be ruled out. Flu A angiten in the sample may be below the detection limit of the test. Performed By: #### C MP, BNP, HSTROPN #### [facility] [address] [place] [address] Dr. Cindi Iniguez INFLUBNEGH SEE BELOW Normal [facility] Comment on above: Result Comment: Nega tive for Flu B protein antigen. Infection due to Flu B cannot be ruled out. Flu B antigen in the sample may be below the detection limit of the test. Performed By: #### C MP, BNP, HSTROPN #### [facility] [address] [address] [address] Cindi Iniguez INFLUENZA A AG Negative Normal NEGATIVE SEE COMMENT [facility] Comment on above: Performed By: #### C MP, BNP, HSTROPN #### [facility] [address] [place] [address] Dr. Cindi Iniguez INFLUENZA B AG Negative Normal NEGATIVE SEE COMMENT [facility] Comment on above: Performed By: #### C MP, BNP, HSTROPN #### [facility] [address] [place] [address] Dr. Cindi Iniguez Cov[facility]-19 PCR ([facility]on 07-09 SARS-CoV-2 (COVID-19) RNA EMMANUEL+probe Ql (Unsp spec) Not detected Normal NOT DETECTED [facility] Comment on above: Result Comment: When diagnostic [...] for this test is supported by the [employer] of Health and Human Service's declaration that [...] used). Performed By: #### C VDTBH #### [facility] [address] [place] [address] Dr. Cindi Iniguez BNPon 04-14-2022 Natriuretic peptide B (Bld) [Mass/Vol] 583.0 pg/mL Normal <=900.0 [facility] Comment on above: Performed By: #### C MP, BNP, HSTROPN #### [facility] [address] [place] [address] Dr. Cindi Iniguez CBC AUTO DIFFon 04-14-2022 BASO # 0.0 103/ul Normal 0.0-0.1 [facility] Comment on above: Performed By: #### C BC #### [facility] [address] [place] [address] Dr. Cindi Iniguez Basophils/100 WBC (Bld) 0.2 % Normal 0.2-2.0 [facility] Comment on above: Performed By: #### C BC #### [facility] [address] [place] [address] Dr. Cindi Iniguez EO # 0.0 103/ul Normal 0.0-0.7 [facility] Comment on above: Performed By: #### C BC #### [facility] [address] [place] [address] Dr. Cindi Iniguez Eosinophils/100 WBC (Bld) 0.3 % Critically low 0.9-7.0 [facility] Comment on above: Performed By: #### C BC #### [facility] [address] [place] [address] Dr. Cindi Iniguez Erythrocyte distribution width (RBC) [Ratio] 12.6 % Normal 11.0-15.0 [facility] Comment on above: Performed By: #### C BC #### [facility] [address] [place] [address] Dr. Cindi Iniguez Hematocrit (Bld) [Volume fraction] 43.3 % Normal 36.0-48.0 [facility] Comment on above: Performed By: #### C BC #### [facility] [address] [place] [address] Dr. Cindi Iniguez Hemoglobin (Bld) [Mass/Vol] 14.5 g/dL Normal 12.0-16.0 [facility] Comment on above: Performed By: #### C BC #### [facility] [address] [place] [address] Dr. Cindi Iniguez IG # 0.07 10e3/ul Critically high 0.00-0.03 [facility] Comment on above: Performed By: #### C BC #### [facility] [address] [place] [address] Dr. Cindi Iniguez IG % 0.5 % Normal 0.0-0.5 [facility] Comment on above: Performed By: #### C BC #### [facility] [address] [place] [address] Dr. Cindi Iniguez LYMPH # 1.8 103/ul Normal 1.2-3.8 [facility] Comment on above: Performed By: #### C BC #### [facility] [address] [place] [address] Dr. Cindi Iniguez Lymphocytes/100 WBC (Bld) 12.9 % Critically low 20.5-60.0 [facility] Comment on above: Performed By: #### C BC #### [facility] [address] [place] [address] Dr. Cindi Iniguez MANUAL DIFF REQ NO Normal [facility] Comment on above: Performed By: #### C BC #### [facility] [address] [place] [address] Dr. Cindi Iniguez MCH (RBC) [Entitic mass] 30.5 pg Normal 26.7-34.0 [facility] Comment on above: Performed By: #### C BC #### [facility] [address] [address] [address] Cindi Iniguez MCHC (RBC) [Mass/Vol] 33.5 g/dL Normal 29.9-35.2 [facility] Comment on above: Performed By: #### C BC #### [facility] [address] [address] [address] Cindi Iniguez MCV (RBC) [Entitic vol] 91.0 fL Normal 81.0-99.0 [facility] Comment on above: Performed By: #### C BC #### [facility] [address] [address] [address] Cindi Iniguez MONO # 1.0 103/ul Critically high 0.3-0.8 [facility] Comment on above: Performed By: #### C BC #### [facility] [address] [place] [address] Dr. Cindi Iniguez Monocytes/100 WBC (Bld) 7.1 % Normal 1.7-12.0 [facility] Comment on above: Performed By: #### C BC #### [facility] [address] [address] [address] Cindi Iniguez NEUT # 10.9 103/ul Critically high 1.4-6.5 [facility] Comment on above: Performed By: #### C BC #### [facility] [address] [address] [address] Cindi Iniguez Neutrophils/100 WBC (Bld) 79.0 % Critically high 43.0-75.0 [facility] Comment on above: Performed By: #### C BC #### [facility] [address] [address] [address] Cindi Iniguez Platelet mean volume (Bld) [Entitic vol] 8.8 fL Critically low 9.5-13.5 [facility] Comment on above: Performed By: #### C BC #### [facility] [address] [address] [address] Cindi Iniguez PLT 207 103/ul Normal 150-450 [facility] Comment on above: Performed By: #### C BC #### [facility] [address] [address] [address] Cindi Iniguez RBC 4.76 106/ul Normal 4.20-5.40 [facility] Comment on above: Performed By: #### C BC #### [facility] [address] [address] [address] Cindi Iniguez WBC 13.8 103/ul Critically high 4.0-11.0 [facility] Comment on above: Performed By: #### C BC #### [facility] [address] [address] [address] Cindi Iniguez CTA CHEST WO W [...] HERNÁN BAR Date: 2022-04-14 16:28 Normal [facility] PROF 14(COMP METB)on Albumin [Mass/Vol] 3.5 g/dL Normal 3.4-5.0 [facility] Comment on above: Performed By: #### C MP, BNP, HSTROPN #### [facility] [address] [address] [address] Cindi Iniguez Albumin/Globulin [Mass ratio] 1.0 {ratio} Normal [facility] Comment on above: Performed By: #### C MP, BNP, HSTROPN #### [facility] [address] [place] [address] Dr. Cindi Iniguez ALP [Catalytic activity/Vol] 64 U/L Normal 46-116 [facility] Comment on above: Performed By: #### C MP, BNP, HSTROPN #### [facility] [address] [place] [address] Dr. Cindi Iniguez ALT [Catalytic activity/Vol] 44 U/L Normal 14-59 [facility] Comment on above: Performed By: #### C MP, BNP, HSTROPN #### [facility] [address] [place] [address] Dr. Cindi Iniguez Anion gap [Moles/Vol] 12.5 mmol/L Normal [facility] Comment on above: Performed By: #### C MP, BNP, HSTROPN #### [facility] [address] [place] [address] Dr. Cindi Iniguez AST [Catalytic activity/Vol] 21 U/L Normal 15-37 [facility] Comment on above: Performed By: #### C MP, BNP, HSTROPN #### [facility] [address] [place] [address] Dr. Cindi Iniguez Bilirubin [Mass/Vol] 0.3 mg/dL Normal 0.2-1.0 [facility] Comment on above: Performed By: #### C MP, BNP, HSTROPN #### [facility] [address] [place] [address] Dr. Cindi Iniguez Calcium [Mass/Vol] 9.1 mg/dL Normal 8.5-10.1 [facility] Comment on above: Performed By: #### C MP, BNP, HSTROPN #### [facility] [address] [place] [address] Dr. Cindi Iniguez Chloride [Moles/Vol] 97 mmol/L Critically low 98-107 [facility] Comment on above: Performed By: #### C MP, BNP, HSTROPN #### [facility] [address] [address] [address] Cindi Iniguez CO2 [Moles/Vol] 29.8 mmol/L Normal 21.0-32.0 [facility] Comment on above: Performed By: #### C MP, BNP, HSTROPN #### [facility] [address] [place] [address] Dr. Cindi Iniguez Creatinine [Mass/Vol] 1.06 mg/dL Critically high 0.55-1.02 [facility] Comment on above: Performed By: #### C MP, BNP, HSTROPN #### [facility] [address] [place] [address] Dr. Cindi Iniguez EGFR-AF SAO TOMEAN >60 Normal >=60 [facility] Comment on above: Performed By: #### C MP, BNP, HSTROPN #### [facility] [address] [place] [address] Dr. Cindi Iniguez EGFR-NON AF SAO TOMEAN 53 mL/min/1.73m2 Critically low >=60 [facility] Comment on above: Performed By: #### C MP, BNP, HSTROPN #### [facility] [address] [place] [address] Dr. Cindi Iniguez Globulin (S) [Mass/Vol] 3.6 g/dL Normal [facility] Comment on above: Performed By: #### C MP, BNP, HSTROPN #### [facility] [address] [place] [address] Dr. Cindi Iniguez Glucose [Mass/Vol] 109 mg/dL Critically high 74-106 [facility] Comment on above: Performed By: #### C MP, BNP, HSTROPN #### [facility] [address] [place] [address] Dr. Cindi Iniguez Potassium [Moles/Vol] 4.3 mmol/L Normal 3.5-5.1 [facility] Comment on above: Performed By: #### C MP, BNP, HSTROPN #### [facility] [address] [place] [address] Dr. Cindi Iniguez Protein [Mass/Vol] 7.1 g/dL Normal 6.4-8.2 The [facility] Comment on above: Performed By: #### C MP, BNP, HSTROPN #### [facility] [address] [place] [address] Dr. Cindi Iniguez Sodium [Moles/Vol] 135 mmol/L Critically low 136-145 [facility] Comment on above: Performed By: #### C MP, BNP, HSTROPN #### [facility] [address] [place] [address] Dr. Cindi Iniguez Urea nitrogen [Mass/Vol] 17.0 mg/dL Normal 7.0-18.0 [facility] Comment on above: Performed By: #### C MP, BNP, HSTROPN #### [facility] [address] [place] [address] Dr. Cindi Iniguez Urea nitrogen/Creatinine [Mass ratio] 16.0 mg/mg Normal [facility] Comment on above: Performed By: #### C MP, BNP, HSTROPN #### [facility] [address] [place] [address] Dr. Cindi Iniguez PROTIMEon 04-14-2022 INR Coag (PPP) [Relative time] 0.93 {INR} Normal [facility] Comment on above: Performed By: #### P TT, PT #### [facility] [address] [place] [address] Dr. Cindi Iniguez INR GUIDELINES SEE BELOW Normal [facility] Comment on above: Result Comment: MESSI RED INR: 2.0 - 3.0 CONDITIONS NOT LISTED BELOW 2.5 - 3.5 FOR PROSTHETIC HEART VALVE REPLACEMENT 2.5 - 3.5 RECURRENT THROMBOSIS Performed By: #### P TT, PT #### [facility] [address] [place] [address] Dr. Cindi Iniguez PT Coag (PPP) [Time] 10.1 s Normal 9.0-11.6 [facility] Comment on above: Performed By: #### P TT, PT #### [facility] [address] [place] [address] Dr. Cindi Iniguez PTTon 04-14-2022 aPTT Coag (Bld) [Time] 23.8 s Normal 22.3-36.2 [facility] Comment on above: Performed By: #### C MP, BNP, HSTROPN #### [facility] [address] [address] [address] Cindi Iniguez TROPONIN, HIGH SENSITIVITYon 04-14-2022 HSTROP 27.4 pg/mL Normal 4.0-51.3 [facility] Comment on above: Result Comment: CUT- OFF POINTS HAVE BEEN ESTABLISHED BASED ON THE FOURTH UNIVERSAL DEFINITIONS OF MYOCARDIAL INFARCTION. THE UPPER REFERENCE LIMIT (URL) OF TROPONIN, DEFINED THE 99TH PERCENTILE OF cTnI DISTRIBUTION IN A REFERENCE POPULATION, HAS BEEN CONFIRMED THE DECISION THRESHOLD FOR NC DIAGNOSIS. Performed By: #### C MP, BNP, HSTROPN #### [facility] [address] [place] [address] Dr. Cindi Iniguez Covid-19 PCR ([facility])on 03-08 SARS-CoV-2 (COVID-19) RNA EMMANUEL+probe Ql (Unsp spec) Detected Critically abnormal NOT DETECTED [facility] Comment on above: Result Comment: This test is not yet approved or cleared by the [place] FDA. When there are no FDA-approved or cleared tests available, and other criteria are met, FDA can make tests available under an emergency access mechanism called an Emergency Use Authorization (EUA). The EUA for this test is supported by the [employer] of Health and Human Service's (HHS's) declaration [...] By: #### C MP, BNP, HSTROPN #### [facility] [address] [place] [address] Dr. Cindi Iniguez Vital Signs Date Time Vital Sign Value Performing Clinician Faci lity 10-22-2023 15:23-0500 Body mass index (BMI) [Ratio] 36.39 kg/m2 John Pineda ADMINISTRATIVE INTERN-SALES DEPARTMENT MANAGER Work Phone: [facility] 10-22-2023 15:23-0500 Body weight 96.16 kg John Pineda ADMINISTRATIVE INTERN-SALES DEPARTMENT MANAGER Work Phone: [facility] Encounters Encounter Date Encounter Type Care Provider Facility Start: 11-06-2023 End: 11-06-2023 Evaluation and management of inpatient CALLY ARREAGA [facility] Start: 11-05-2023 End: 11-06-2023 Evaluation and management of inpatient NUBIA NOGUEIRA [facility] Start: 10-22-2023 ambulatory [facility] Jennifer PINEDA [facility] Start: 10-22-2023 End: 10-22-2023 Office outpatient new 30 minutes John Rodriguez Ross ADMINISTRATIVE INTERN-SALES DEPARTMENT MANAGER Work Phone: [facility] Comment on above: Family history of ma lignant neoplasm of colon (Primary Dx) Start: 12-24-2022 End: 12-25-[address] REAL KIMBALL . Facility:[facility] Start: 10-20-2022 End: 10-21-[address] REAL KIMBALL . Facility:[facility] Start: 10-08-2022 End: 10-08-[address] REAL KIMBALL . Facility:[facility] Start: 08-05-2022 End: 08-05-2022 ambulatory CASANDRA ALLEN Facility:[facility] Start: 04-14-2022 End: 04-14-2022 ambulatory AVERY MCKNIGHT Facility:[facility] Start: 04-02-2022 End: 04-02-[address] REAL KIMBALL . Facility:[facility] Start: 02-20-[address] REAL KIMBALL . Facili ty:[facility] Procedures Date Procedure Procedure Detail Performing Clinician Start: 10-11-2018 Colonoscopy John Caitlin núñez ADMINISTRATIVE INTERN-SALES DEPARTMENT MANAGER Work Phone: Plan of Treatment Date Care Activity Detail Author Start: 10-22-2024 Adult BMI Screening Adult BMI Screen ing [facility] Start: 10-22-2024 Tobacco Screening Tobacco Screening [facility] Start: 11-05-2023 End: 11-05-2023 Admission to same day surgery center 11/05/2023 11:00 AM EST - 11/05/2023 11:30 AM EST Surgery [facility] [address] [place] [address] Nubia Nogueira, DO [address] [place], [place] [id number] COLONOSCOPY DIAGNOSTIC / SCREENING [11859 (CPT )] [facility] Comment on above: COLONOSCOPY DIAGNOST IC / SCREENING [10081 (CPT )] Start: 11-05-2023 End: 11-05-2023 Colonoscopy flx dx w/collj spec when pfrmd COLONOSCOPY DIAGNOSTIC / SCREENING Family history of colon cancer 11/05/2023 11:00 AM [facility] Start: 11-05-2023 Subsequent hospital visit by physician 11/05/2023 11:00 AM EST Hospital Encounter [facility] [address] [place] [address] [phone] Nubia Nogueira, DO [address] [place], [place] [id number] [facility] Start: 10-29-2023 End: 10-29-2023 ambulatory 10/29/2023 2:10 PM EST Support Visit [facility] [address] [place] [address] [facility] Start: 10-11-2023 Screening for malign ant neoplasm of colon Colonoscopy [facility] Start: 2010 Administration of varicella zoster vaccine Zoster (Shingles) Vaccine (1 of 2) [facility] Start: 1979 DTaP,Tdap and Td Vac cines (1 - Tdap) DTaP,Tdap and Td Vaccines (1 - Tdap) [facility] Start: 1978 Adult BMI Follow Up Plan Adult BMI Follow Up Plan [facility] Start: 1972 [facility] End: 10-22-2024 Colonoscopy Colonoscopy GI Routine Family history of malignant neoplasm of colon 1 Occurrences starting 10/22/2023 until 10/22/2024 [employer] Work Phone: Comment on above: 1 Occurrences starti ng 10/22/2023 until 10/22/2024 Payers Date Payer Category Payer Private Health Insurance [facility] [employer] imoci1973 2023-Present [phone] [address] [address] [place] [address] [id number] 1960 Unknown [id number] [id number]. 2.593 1960 Unknown [id number] 2.16.840.1.495399.3.579. 2.593 1960 Unknown [id number] 2.16.840.1.845999.3.579. 2.593 1960 Unknown [id number] 2.16.840.1.359182.3.579. 2.593 1960 Unknown [id number] 2.16.840.1.883200.3.579. 2.593 1960 Unknown [id number] 2.16.840.1.194927.3.579. 2.593 1960 Unknown [id number] 2.16.840.1.735824.3.579. 2.593 1960 Unknown [id number] 2.16.840.1.801536.3.579. 2.1286 1960 Unknown [id number] 2.16.840.1.931646.3.579. 2.1286 1960 Unknown [id number] 2.16.840.1.230425.3.579. 2.1286 1960 Unknown [id number] 2.16.840.1.011728.3.579. 2.1286 1960 Unknown [id number] [id number]. 2.1286 1959 Private Health Insurance [id number] 1959 Self-pay [id number] Social History Date Type Detail Facility Start: 12-31-2022 Tobacco smoking stat [facility] Ex-smoker [facility] End: 08-28-1998 History of tobacco use Current smoker [facility] End: 08-28-1998 History of tobacco use Cigarette Smoker [facility] Start: 12-31-2022 Tobacco use and exposure Smoke less tobacco non-user [facility] Start: 10-22-2023 Alcohol intake Current drinke r of alcohol (finding) [facility] Start: 10-18-2020 End: 12-30-2021 History of Social function [facility] Work Phone: Start: 10-18-2020 End: 12-30-2021 Alcohol Use Disorder Identification Test - Consumption [AUDIT-C] [facility] Work Phone: How often to you hav e a drink containing alcohol? Monthly or less [facility] Work Phone: How many standard dr inks containing alcohol do you have on a typical day? 5 or 6 [facility] How often do you hav e 6 or more drinks on 1 occasion? Less than monthly [facility] Childcare Unknown [facility] Start: 09-28-2018 Alcohol Comment social [facility] Start: 1960 Sex Assigned At Not on file P [facility] History of Present illness Narrative 10-22-2023 John Pineda, SRINIVASAN-SALES DEPARTMENT MANAGER - 10/22/2023 3:30 PM EST Note Date [...] 10/11/2018 Performed by Nubia Nogueira DO at [facility] ESOPHAGOGASTRODUODENOSCOPY N/A 07/04/2021 Performed by Nubia Nogueira DO at [facility] HYSTERECTOMY 2008 OOPHORECTOMY Allergies Allergen Reactions Penicillins [...] mouth daily., Disp: , Rfl: peg 3350-sod sulf,aqql-diw-atu 178.7-7.3-0.5 gram recon soln, Take 1 kit [...] patient/family/caregiver Referring and communicating with other health healthcare management consultant Family history of malignant neoplasm of colon [Z80.0] BETTY SMITH [facility] General [facility] [place] This note was created with the assistance of a speech recognition program. While intending to generate a timely document that accurately reflects the content of the visit, no guarantee can be provided that every grammatical or spelling mistake has been or will be identified or corrected. Thank you for your understanding. BETTY Smith 10/22/23 1550 documented in this encounter [facility] Evaluation note Note Date & Type Note Facility Evaluation note Diagnosis Family history of malignant neoplasm of colon- Primary Family history of colon cancer Family history of malignant neoplasm of gastrointestinal tract documented in this encounter [facility] Instructions Note Date & Type Note Facility Instructions Not on filedocumented in this en counter [facility] Summary Purpose Family History No Family History Records FoundNo Family History Records FoundNo Family History Records Found Advance Directives No Advanced Directives Records FoundNo Advanced Directives Records FoundNo Advanced Directives Records Found Additional Source Comments INFORMATION SOURCE (unrecogn ized section and content) DATE CREATED AUTHOR 12/28/2022 [facility] DATE CREATED AUTHOR AUTHOR'S ORGANIZ ATION 10/28/2023 [facility] DATE CREATED AUTHOR AUTHOR'S ORGANIZ ATION 11/07/2023 [facility] Reason for Visit (unrecogniz ed section and content) Reason Comments Colon Cancer Screening 5 year recall, sam finley history of colon cancer Care Teams (unrecognized sec tion and content) Muck Operator Relationship Specialty Start Date End Date Real Kimball MD [address] [place] [address] PCP - General Family Medicine 09/22/18 FOR [...] BE BASED ON THE PRIMARY CLINICAL RECORDS. [facility]. provides no warranty or guarantee of the accuracy or completeness of information in this document.
--- NOTE | 2024-02-15 06:27 | ED_ITS ---
HPI - Nausea/Vomiting/Diarrhea General Chief complaint: Nausea/Vomiting/Diarrhea Stated complaint: nauseas and diarrhea Time Seen by Provider: 02/15/24 06:21 Source: patient Mode of arrival: walk-in Limitations: no limitations History of Present Illness HPI Narrative: 63-year-old female presents to the emergency department for a 1 month history of nausea vomiting and diarrhea. She states she has diarrhea every time she eats. She has had some testing for this and in reviewing the electronic health record it appears that she had a right upper quadrant ultrasound which showed a mildly dilated common bile duct. C. difficile testing was negative. She states she was supposed to have a CAT scan but nobody from scheduling has called her yet. No fever or hematemesis. Related Data Home Medications ?Medication ?Instructions ?Recorded ?Confirmed diclofenac sodium 75 mg mg PO 02/15/24 tablet,delayed release hyoscyamine sulfate 0.125 mg mg 02/15/24 sublingual tablet leflunomide 20 mg tablet mg 02/15/24 levothyroxine 150 mcg tablet mcg 02/15/24 liothyronine 5 mcg tablet mcg 02/15/24 omeprazole 20 mg capsule,delayed mg 02/15/24 release Allergies Allergy/AdvReac Type Severity Reaction Status Date / Time Sulfa (Sulfonamide Allergy Verified 02/15/24 06:18 Antibiotics) Review of Systems ROS Narrative A ten point review of systems is negative except as noted above. Exam Narrative Exam Narrative: Nurses note and vital signs reviewed and patient is not hypoxic. General: The patient appears in no apparent distress. Patient is resting comfortably on cart. Skin: Warm, dry, slight pallor noted. There is no rash noted. Head: Normocephalic, atraumatic Eye: Normal conjunctiva, no drainage Ears, Nose, Mouth, and Throat: oral mucosa is moist. Nares patent. Cardiovascular: Regular Rate and Rhythm Respiratory: Patient is in no distress, no accessory muscle use, lungs are clear to auscultation, no wheezing, rales or rhonchi Back: non-tender GI: No tenderness across her lower abdomen. Minimal tenderness present in the epigastric area Musculoskeletal: The patient has no evidence of calf tenderness, no pitting edema, symmetrical pulses noted bilaterally Neurological: A&O, normal speech Psychiatric: Cooperative Constitutional Vital Signs, click to edit/add: Last Vital Signs Temp 97.9 F 02/15/24 06:14 Pulse 80 02/15/24 06:14 Resp 16 02/15/24 06:14 BP 132/95 H 02/15/24 06:14 Pulse Ox 95 02/15/24 06:14 O2 Del Method Room Air 02/15/24 06:14 Course Vital Signs Vital signs: Vital Signs Temperature 97.9 F 02/15/24 06:14 Pulse Rate 80 02/15/24 06:14 Respiratory Rate 16 02/15/24 06:14 Blood Pressure 132/95 H 02/15/24 06:14 Pulse Oximetry 95 02/15/24 06:14 Oxygen Delivery Method Room Air 02/15/24 06:14 Temperature 97.9 F 02/15/24 06:14 Pulse Rate 80 02/15/24 06:14 Respiratory Rate 16 02/15/24 06:14 Blood Pressure 132/95 H 02/15/24 06:14 Pulse Oximetry 95 02/15/24 06:14 Oxygen Delivery Method Room Air 02/15/24 06:14 MDM - Nausea/Vomiting/Diarrhea MDM Narrative Medical decision making narrative: Tests are ordered and the patient is signed out to Dr. Shay at change of shift. Differential Diagnosis Differential diagnosis: Likely food poisoning, gastroenteritis and dehydration Discharge Plan Discharge Chief Complaint: Nausea/Vomiting/Diarrhea Clinical Impression: Nausea vomiting and diarrhea Patient Disposition: Still a Patient Prescriptions / Home Meds: No Action liothyronine 5 mcg tablet leflunomide 20 mg tablet hyoscyamine sulfate 0.125 mg tablet, sublingual levothyroxine 150 mcg tablet omeprazole 20 mg capsule,delayed release(DR/EC) diclofenac sodium 75 mg tablet,delayed release (DR/EC) PO Print Language: Macedonian Referrals: Tano Kimball MD [Primary Care Provider] - 1 week
[2024-02-15] MEDS: 0.9 % SODIUM CHLORIDE 1,000 ML 125 ML IV (06:48)
[2024-02-15] MEDS: ONDANSETRON PF 4 MG/2 ML VIAL IV ×2 (06:49→09:06)
[2024-02-15 06:55] LABS: Basophils Percent Auto 0.4 % (0.2-2.0); Eosinophils Absolute Auto 0.1 10^3/uL (0.0-0.7); Eosinophils Percent Auto 1.1 % (0.9-7.0); Hematocrit 38.6 % (36.0-48.0); Hemoglobin 12.5 g/dL (12.0-16.0); Immature Granulocytes Abs Auto 0.01 10^3/uL (0.00-0.03); Immature Granulocytes Pct Auto 0.2 % (0.0-0.5); Lymphocytes Absolute Auto 0.9 10^3/uL (1.2-3.8); Lymphocytes Percent Auto 17.1 % (20.5-60.0); Mean Corpuscular HGB Conc 32.4 g/dL (29.9-35.2); Mean Corpuscular Hemoglobin 30.3 pg (26.7-34.0); Mean Corpuscular Volume 93.7 fL (81.0-99.0); Mean Platelet Volume 9.4 fL (9.5-13.5); Monocytes Absolute Auto 0.3 10^3/uL (0.3-0.8); Monocytes Percent Auto 6.5 % (1.7-12.0); Neutrophils Absolute Auto 3.9 10^3/uL (1.4-6.5); Neutrophils Percent Auto 74.7 % (43.0-75.0); Platelet Count 187 10^3/uL (150-450); Red Blood Count 4.12 10^6/uL (4.20-5.40); Red Cell Distribution Width 13.1 % (11.0-15.0); White Blood Count 5.3 10^3/uL (4.0-11.0)
--- NOTE | 2024-02-15 06:56 | CT_ITS ---
[address] [address] Patient Name: DEEPA ZAYAS MRN: [id number] date: 1960 Sex: F Assigned Patient Location: ER Current Patient Location: ER Accession/Order Number: [id number] Exam Date: 02/15/2024 07:58 Report Date: 02/15/2024 08:46 At the request of: AVERY MCKNIGHT Procedure: CT abdomen pelvis wo/w con EXAMINATION: CT abdomen pelvis wo/w con HISTORY: Abnormal ultrasound COMPARISON: Ultrasound 02/11/2024 TECHNIQUE: Axial, Coronal, and Sagittal images were created without and with non-ionic intravenous contrast material. Dose reduction techniques were achieved by using automated exposure control and/or adjustment of mA and/or kV according to patient size and/or use of iterative reconstruction technique. FINDINGS: LUNG BASES: No visible pulmonary or pleural disease. LIVER: Diffuse hypoattenuation of the liver suggesting hepatic steatosis. No focal mass BILIARY: No dilatation or calcification. Normal common bile duct diameter PANCREAS: No lesion, fluid collection, ductal dilatation, or atrophy. SPLEEN: No enlargement or focal lesion. ADRENALS: No mass or enlargement. KIDNEYS: No mass, obstruction, or calcification. BOWEL/MESENTERY: No visible mass, obstruction, or bowel wall thickening. Normal appendix AORTA/VASCULAR: No aortic aneurysm or dissection. Mild calcific atherosclerosis RETROPERITONEUM: No mass or adenopathy. LYMPH NODES: No adenopathy. URINARY BLADDER: No visible focal wall thickening, lesion, or calculus. PELVIC ORGANS: Hysterectomy ABDOMINAL WALL: No mass or hernia. BONES: No bony lesion or fracture. OTHER: Negative. CT/CT abdomen pelvis wo/w con IMPRESSION: Hepatic steatosis No acute intraperitoneal abnormality Electronically authenticated by: CALLY CURRAN Date: 02/15/2024 08:46
--- NOTE | 2024-02-15 07:01 | PC.NURSE ---
Patient reports that for the past month she has been having issues with RLQ pain. Also reports that for the past month she vomits frothy, bubbly fluid about 30min to 1 hour after eating. patient has been seeing Dr. Kimball for this with concerns for gallbladder issues. Patient resting in bed at this time, endorses that her bilateral shoulders have been aching and she feels very tired. Woke up at 0400 this morning with nausea, vomiting, and abdominal pain.
[2024-02-15 07:11] LABS: Alanine Aminotransferase 29 U/L (14-59); Albumin Globulin Ratio 1.1; Albumin Level 3.6 g/dL (3.4-5.0); Alkaline Phosphatase 63 U/L (46-116); Amylase 20 U/L (25-115); Anion Gap 11.6; Aspartate Amino Transferase 40 U/L (15-37); BUN Creatinine Ratio 20.3; Bilirubin Direct 0.1 mg/dL (0.0-0.2); Bilirubin Total 0.4 mg/dL (0.2-1.0); Calcium 8.9 mg/dL (8.5-10.1); Carbon Dioxide 29.1 mmol/L (21.0-32.0); Chloride 104 mmol/L (98-107); Estimated GFR (African America >60 (>=60); Estimated GFR (Non-African Ame >60 (>=60); Globulin 3.3 g/dL; Glucose 114 mg/dL (74-106); Potassium 3.7 mmol/L (3.5-5.1); Sodium 141 mmol/L (136-145); Total Protein 6.9 g/dL (6.4-8.2)
[2024-02-15 09:48] LABS: Bilirubin Urine NEGATIVE (NEGATIVE); Blood Urine TRACE-L (NEGATIVE); Clarity Urine CLEAR (CLEAR); Color Urine LT. YELLOW (YELLOW); Glucose Urine UA NEGATIVE (NEGATIVE); Ketones Urine NEGATIVE (NEGATIVE); Leukocyte Esterase Urine SMALL (NEGATIVE); Nitrite Urine NEGATIVE (NEGATIVE); Protein Urine NEGATIVE (NEG/TRACE); Urobilinogen Urine 0.2 EU/dL (0.2-1.0)
== END 2024-02-15 10:47 | disposition home or self-care (01) ==
PROVIDERS: Emergency Provider Emergency Medicine; PCP Family Medicine
DX: R10.9 Unspecified abdominal pain (principal); R11.2 Nausea with vomiting, unspecified; K80.50 Calculus of bile duct without cholangitis or cholecystitis without obstruction; R19.7 Diarrhea, unspecified
CPT/HCPCS: 36415; 74178; 80048; 80076; 81001; 81003; 82150; 83690; 85025; 96361; 96374; 96376; 99285; J2405; Q9967

== ENCOUNTER 2024-02-16 06:00 | Inpatient (IN) | payer OTHER, SELFPAY ==
[2024-02-16] VITALS (11 sets, daily range): BP systolic 135–160; BP diastolic 54–87; PULSE 69–80; TEMP 36.4–36.9; O2SAT 91–98; BMI 34.8
--- OUTSIDE RECORDS SUMMARY | 2024-02-16 06:11 | XMS_ITS | CCD ---
Author Organization [facility] Care Team Providers Care Nutrition Faculty Member Name Role Phone AVERY MCKNIGHT Attending Unavailable [...] HOY ., DR NOBLE Primary Care Unavailable PI[place]URE [place], DR CALLY Aguila Consulting Unavailable HOY ., DR NOBLE Consulting Unavailable HOY ., DR NOBLE Attending Unavailable HOY ., DR NOBLE Admyordan Unavailable HOY ., DR NOBLE Primary Care Unavailable CASANDRA ALLEN Attending Unavailable CASANDRA ALLEN Admitting Unavailable BRIANY ., DR NOBLE Primary Care Unavailable CASANDRA ALLEN Consulting Unavailable Real Kimball MD Primary Care Provider [phone] JOHN PINEDA Attending Unavailable CHONG KIMBALLLAS [...] Facility (1 source) Penicillin Drug Allergy [facility] Repository (1 source) Sulfonamides (Antibiotic) Drug allergy (disorder) [facility] (3 sources) Penicillins; Translations: [PENICILLINS] Propensity to adverse reactions to drug 1 Swelling [facility] (3 sources) sulfabenzamide; Translations: [SULFABENZAMIDE] Drug Allergy 9 [facility] (3 sources) Sulfonamides (Antibiotic); Translations: [SULFA (SULFONAMIDE ANTIBIOTICS)] Propensity to adverse reactions to drug 4 [facility] Medications Current Medications Medication Drug Class(es) Dates Sig (Normalized) Sig (Original) lactobacillus acidophilus [id number] unt / pectin 100 mg oral tablet [...] and at bedtime. 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 Admission #: [id number] Family : Order #: [id number] CLICK HERE TO VIEW EXAM RADIOLOGY REPORT [...] breast cancer at age 70. LOCATION: [facility] BREAST COMPOSITION: Heterogeneously dense,which may obscure [...] MD on 10/20/2022 at 12:[address] [facility] Covid-19 PCR (CVDTB)on SARS-CoV-2 (COVID-19) RNA EMMANUEL+probe Ql (Unsp spec) Not detected Normal NOT DETECTED [facility] Comment on above: Result Comment: When [...] for this test is supported by the Ignacio of Health and Human Service's declaration that [...] used). Performed By: #### C VDTBH #### [facility] [address] [place] [address] Dr. Cindi Iniguez INFLUENZA A AND B AGon 10-08 [facility] SEE BELOW Normal [facility] Comment on above: Result Comment: Nega tive for Flu A protein angiten. Infection due to Flu A cannot be ruled out. Flu A angiten in the sample may be below the detection limit of the test. Performed By: #### C MP, BNP, HSTROPN #### [facility] [address] [place] [address] Dr. Cindi Iniguez INFLUBNEGH SEE BELOW Normal [facility] Comment on above: Result Comment: Nega tive for Flu B protein antigen. Infection due to Flu B cannot be ruled out. Flu B antigen in the sample may be below the detection limit of the test. Performed By: #### C MP, BNP, HSTROPN #### [facility] [address] [address] [address] Cindi Iniguez INFLUENZA A AG Negative Normal NEGATIVE SEE COMMENT [facility] Comment on above: Performed By: #### C MP, BNP, HSTROPN #### [facility] [address] [place] [address] Dr. Cindi Iniguez INFLUENZA B AG Negative Normal NEGATIVE SEE COMMENT [facility] Comment on above: Performed By: #### C MP, BNP, HSTROPN #### [facility] [address] [place] [address] Dr. Cindi Iniguez [facility]09 SARS-CoV-2 (COVID-19) RNA EMMANUEL+probe Ql (Unsp spec) Not detected Normal NOT DETECTED [facility] Comment on above: Result Comment: When [...] for this test is supported by the Coder Operator of Health and Human Service's declaration that [...] used). Performed By: #### C VDTBH #### [facility] [address] [place] [address] Dr. Cindi Iniguez BNPon 04-14-2022 Natriuretic peptide B (Bld) [Mass/Vol] 583.0 pg/mL Normal <=900.[address] [facility] Comment on above: Performed By: #### C MP, BNP, HSTROPN #### [facility] [address] [place] [address] Dr. Cindi Iniguez CBC AUTO DIFFon 04-14-2022 BASO # 0.0 103/ul Normal 0.0-0.1 [facility] Comment on above: Performed By: #### C BC #### [facility] [address] [place] [address] Dr. Cindi Iniguez Basophils/100 WBC (Bld) 0.2 % Normal 0.2-2.[address] [facility] Comment on above: Performed By: #### C BC #### [facility] [address] [place] [address] Dr. Cindi Iniguez EO # 0.0 103/ul Normal 0.0-0.[address] [facility] Comment on above: Performed By: #### C BC #### [facility] [address] [place] [address] Dr. Cindi Iniguez Eosinophils/100 WBC (Bld) 0.3 % Critically low 0.9-7.[address] [facility] Comment on above: Performed By: #### C BC #### [facility] [address] [place] [address] Dr. Cindi Iniguez Erythrocyte distribution width (RBC) [Ratio] 12.6 % Normal 11.0-15.0 [facility] Comment on above: Performed By: #### C BC #### [facility] [address] [place] [address] Dr. Cindi Iniguez Hematocrit (Bld) [Volume fraction] 43.3 % Normal 36.0-48.0 [facility] Comment on above: Performed By: #### C BC #### [facility] [address] [place] [address] Dr. Cindi Iniguez Hemoglobin (Bld) [Mass/Vol] 14.5 g/dL Normal 12.0-16.0 [facility] Comment on above: Performed By: #### C BC #### [facility] [address] [place] [address] Dr. Cindi Iniguez IG # 0.07 10e3/ul Critically high 0.00-0.03 [facility] Comment on above: Performed By: #### C BC #### [facility] [address] [place] [address] Dr. Cindi Iniguez IG % 0.5 % Normal 0.0-0.5 [facility] Comment on above: Performed By: #### C BC #### [facility] [address] [place] [address] Dr. Cindi Iniguez LYMPH # 1.8 103/ul Normal 1.2-3.8 [facility] Comment on above: Performed By: #### C BC #### [facility] [address] [place] [address] Dr. Cindi Iniguez Lymphocytes/100 WBC (Bld) 12.9 % Critically low 20.5-60.0 [facility] Comment on above: Performed By: #### C BC #### [facility] [address] [place] [address] Dr. Cindi Iniguez MANUAL DIFF REQ NO Normal [facility] Comment on above: Performed By: #### C BC #### [facility] [address] [place] [address] Dr. Cindi Iniguez MCH (RBC) [Entitic mass] 30.5 pg Normal 26.7-34.[address] [facility] Comment on above: Performed By: #### C BC #### [facility] [address] [address] [address] Cindi Iniguez MCHC (RBC) [Mass/Vol] 33.5 g/dL Normal 29.9-35.[address] [facility] Comment on above: Performed By: #### C BC #### [facility] [address] [address] [address] Cindi Iniguez MCV (RBC) [Entitic vol] 91.0 fL Normal 81.0-99.[address] [facility] Comment on above: Performed By: #### C BC #### [facility] [address] [address] [address] Cindi Iniguez MONO # 1.0 103/ul Critically high 0.3-0.8 [facility] Comment on above: Performed By: #### C BC #### [facility] [address] [place] [address] Dr. Cindi Iniguez Monocytes/100 WBC (Bld) 7.1 % Normal 1.7-12.[address] [facility] Comment on above: Performed By: #### C BC #### [facility] [address] [address] [address] Cindi Iniguez NEUT # 10.9 103/ul Critically high 1.4-6.5 [facility] Comment on above: Performed By: #### C BC #### [facility] [address] [address] [address] Cindi Iniguez Neutrophils/100 WBC (Bld) 79.0 % Critically high 43.0-75.[address] [facility] Comment on above: Performed By: #### C BC #### [facility] [address] [address] [address] Cindi Iniguez Platelet mean volume (Bld) [Entitic vol] 8.8 fL Critically low 9.5-13.[address] [facility] Comment on above: Performed By: #### C BC #### [facility] [address] [address] [address] Cindi Iniguez PLT 207 103/ul Normal 150-[address] [facility] Comment on above: Performed By: #### C BC #### [facility] [address] [address] [address] Cindi Iniguez RBC 4.76 106/ul Normal 4.20-5.40 [facility] Comment on above: Performed By: #### C BC #### [facility] [address] [address] [address] Cindi Iniguez WBC 13.8 103/ul Critically high 4.0-11.0 [facility] Comment on above: Performed By: #### C BC #### [facility] [address] [address] [address] Cindi Iniguez CTA CHEST WO W [...] HERNÁN BAR Date: 2022-04-14 16:[address] [facility] PROF 14(COMP METB)on Albumin [Mass/Vol] 3.5 g/dL Normal 3.4-5.0 [facility] Comment on above: Performed By: #### C MP, BNP, HSTROPN #### [facility] [address] [address] [address] Cindi Iniguez Albumin/Globulin [Mass ratio] 1.0 {ratio} Normal [facility] Comment on above: Performed By: #### C MP, BNP, HSTROPN #### [facility] [address] [place] [address] Dr. Cindi Iniguez ALP [Catalytic activity/Vol] 64 U/L Normal 46-116 [facility] Comment on above: Performed By: #### C MP, BNP, HSTROPN #### [facility] [address] [place] [address] Dr. Cindi Iniguez ALT [Catalytic activity/Vol] 44 U/L Normal 14-59 [facility] Comment on above: Performed By: #### C MP, BNP, HSTROPN #### [facility] [address] [place] [address] Dr. Cindi Iniguez Anion gap [Moles/Vol] 12.5 mmol/L Normal [facility] Comment on above: Performed By: #### C MP, BNP, HSTROPN #### [facility] [address] [place] [address] Dr. Cindi Iniguez AST [Catalytic activity/Vol] 21 U/L Normal 15-37 [facility] Comment on above: Performed By: #### C MP, BNP, HSTROPN #### [facility] [address] [place] [address] Dr. Cindi Iniguez Bilirubin [Mass/Vol] 0.3 mg/dL Normal 0.2-1.0 [facility] Comment on above: Performed By: #### C MP, BNP, HSTROPN #### [facility] [address] [place] [address] Dr. Cindi Iniguez Calcium [Mass/Vol] 9.1 mg/dL Normal 8.5-10.1 [facility] Comment on above: Performed By: #### C MP, BNP, HSTROPN #### [facility] [address] [place] [address] Dr. Cindi Iniguez Chloride [Moles/Vol] 97 mmol/L Critically low 98-[address] [facility] Comment on above: Performed By: #### C MP, BNP, HSTROPN #### [facility] [address] [address] [address] Cindi Iniguez CO2 [Moles/Vol] 29.8 mmol/L Normal 21.0-32.0 [facility] Comment on above: Performed By: #### C MP, BNP, HSTROPN #### [facility] [address] [place] [address] Dr. Cindi Iniguez Creatinine [Mass/Vol] 1.06 mg/dL Critically high 0.55-1.02 [facility] Comment on above: Performed By: #### C MP, BNP, HSTROPN #### [facility] [address] [place] [address] Dr. Cindi Iniguez EGFR-AF UZBEK >60 Normal >=60 [facility] Comment on above: Performed By: #### C MP, BNP, HSTROPN #### [facility] [address] [place] [address] Dr. Cindi Iniguez EGFR-NON AF UZBEK 53 mL/min/1.73m2 Critically low >=60 [facility] Comment on above: Performed By: #### C MP, BNP, HSTROPN #### [facility] [address] [place] [address] Dr. Cindi Iinguez Globulin (S) [Mass/Vol] 3.6 g/dL Normal [facility] Comment on above: Performed By: #### C MP, BNP, HSTROPN #### [facility] [address] [place] [address] Dr. Cindi Iniguez Glucose [Mass/Vol] 109 mg/dL Critically high 74-106 T [facility] Comment on above: Performed By: #### C MP, BNP, HSTROPN #### [facility] [address] [place] [address] Dr. Cindi Iniguez Potassium [Moles/Vol] 4.3 mmol/L Normal 3.5-5.1 [facility] Comment on above: Performed By: #### C MP, BNP, HSTROPN #### [facility] [address] [place] [address] Dr. Cindi Iniguez Protein [Mass/Vol] 7.1 g/dL Normal 6.4-8.2 [facility] Comment on above: Performed By: #### C MP, BNP, HSTROPN #### [facility] [address] [place] [address] Dr. Cindi Iniguez Sodium [Moles/Vol] 135 mmol/L Critically low 136-[address] [facility] Comment on above: Performed By: #### C MP, BNP, HSTROPN #### [facility] [address] [place] [address] Dr. Cindi Iniguez Urea nitrogen [Mass/Vol] 17.0 mg/dL Normal 7.0-18.0 [facility] Comment on above: Performed By: #### C MP, BNP, HSTROPN #### [facility] [address] [place] [address] Dr. Cindi Iniguez Urea nitrogen/Creatinine [Mass ratio] 16.0 mg/mg Normal [facility] Comment on above: Performed By: #### C MP, BNP, HSTROPN #### [facility] [address] [place] [address] Dr. Cindi Iniguez PROTIMEon 04-14-2022 INR Coag (PPP) [Relative time] 0.93 {INR} Normal [facility] Comment on above: Performed By: #### P TT, PT #### [facility] [address] [place] [address] Dr. Cindi Iniguez INR GUIDELINES SEE BELOW Normal [facility] Comment on above: Result Comment: MESSI RED INR: 2.0 - 3.0 CONDITIONS NOT LISTED BELOW 2.5 - 3.5 FOR PROSTHETIC HEART VALVE REPLACEMENT 2.5 - 3.5 RECURRENT THROMBOSIS Performed By: #### P TT, PT #### [facility] [address] [place] [address] Dr. Cindi Iniguez PT Coag (PPP) [Time] 10.1 s Normal 9.0-11.6 [facility] Comment on above: Performed By: #### P TT, PT #### [facility] [address] [place] [address] Dr. Cindi Iniguez PTTon 04-14-2022 aPTT Coag (Bld) [Time] 23.8 s Normal 22.3-36.[address] [facility] Comment on above: Performed By: #### C MP, BNP, HSTROPN #### [facility] [address] [address] [address] Cindi Iniguez TROPONIN, HIGH SENSITIVITYon 04-14-2022 HSTROP 27.4 pg/mL Normal 4.0-51.[address] [facility] Comment on above: Result Comment: CUT- OFF POINTS HAVE BEEN ESTABLISHED BASED ON THE FOURTH UNIVERSAL DEFINITIONS OF MYOCARDIAL INFARCTION. THE UPPER REFERENCE LIMIT (URL) OF TROPONIN, DEFINED THE 99TH PERCENTILE OF cTnI DISTRIBUTION IN A REFERENCE POPULATION, HAS BEEN CONFIRMED THE DECISION THRESHOLD FOR IN DIAGNOSIS. Performed By: #### C MP, BNP, HSTROPN #### [facility] [address] [place] [address] Dr. Cindi Iniguez [facility]on [facility]-08 SARS-CoV-2 (COVID-19) RNA EMMANUEL+probe Ql (Unsp spec) Detected Critically abnormal NOT DETECTED [facility] Comment on above: Result Comment: This test is not yet approved or cleared by the [place] FDA. When there are no FDA-approved or cleared tests available, and other criteria are met, FDA can make tests available under an emergency access mechanism called an Emergency Use Authorization (EUA). The EUA for this test is supported by the Coder Operator of Health and Human Service's (HHS's) declaration [...] By: #### C MP, BNP, HSTROPN #### [facility] [address] [place] [address] Dr. Cindi Iniguez Vital Signs Date Time Vital Sign Value Performing Clinician Faci lity 10-22-2023 15:23-0500 Body mass index (BMI) [Ratio] 36.39 kg/m2 John Pineda DELI MANAGER-PHYSICAL THERAPIST ASSISTANT Work Phone: [facility] 10-22-2023 15:23-0500 Body weight 96.16 kg John Pineda DELI MANAGER-PHYSICAL THERAPIST ASSISTANT Work Phone: [facility] Encounters Encounter Date Encounter Type Care Provider Facility Start: 11-06-2023 End: 11-06-2023 Evaluation and management of inpatient CALLY ARREAGA [facility] Start: 11-05-2023 End: 11-06-2023 Evaluation and management of inpatient NUBIA NOGUEIRA [facility] Start: 10-22-2023 ambulatory [facility] Jennifer PINEDA [facility] Start: 10-22-2023 End: 10-22-2023 Office outpatient new 30 minutes John Rodriguez Ross DELI MANAGER-PHYSICAL THERAPIST ASSISTANT Work Phone: [facility] Comment on above: [...] Clinician Start: 10-11-2018 Colonoscopy John Caitlin núñez DELI MANAGER-PHYSICAL THERAPIST ASSISTANT Work Phone: Plan of Treatment Date Care Activity Detail Author Start: 10-22-2024 Adult BMI Screening Adult BMI Screen ing [facility] Start: 10-22-2024 Tobacco Screening Tobacco Screening [facility] Start: 11-05-2023 End: 11-05-2023 Admission to same day surgery center 11/05/2023 11:00 AM EST - 11/05/2023 11:30 AM EST Surgery [facility] [address] [place] [address] Nubia Nogueira, DO [address] [place], [place] [id number] COLONOSCOPY DIAGNOSTIC / SCREENING [81707 (CPT )] [facility] Comment on above: COLONOSCOPY DIAGNOST IC / SCREENING [93428 (CPT )] Start: 11-05-2023 End: 11-05-2023 Colonoscopy flx dx w/collj spec when pfrmd COLONOSCOPY DIAGNOSTIC / SCREENING Family history of colon cancer 11/05/2023 11:00 AM [facility] Start: 11-05-2023 Subsequent hospital visit by physician 11/05/2023 11:00 AM EST Hospital Encounter [facility] [address] [place] [address] [phone] Nubia Nogueira, DO [address] [place], [place] [id number] [facility] Start: 10-29-2023 End: 10-29-2023 ambulatory 10/29/2023 2:10 PM EST Support Visit [facility] - Pre Admit [address] [place] [address] [facility] - Pre Admit Start: 10-11-2023 Screening for malign ant neoplasm of colon Colonoscopy [facility] Start: 2010 Administration of varicella zoster vaccine Zoster (Shingles) Vaccine (1 of 2) [facility] Start: 1979 DTaP,Tdap and Td Vac cines (1 - Tdap) DTaP,Tdap and Td Vaccines (1 - Tdap) [facility] Start: 1978 Adult BMI Follow Up Plan Adult BMI Follow Up Plan [facility] Start: 1972 Depression Screening [facility] End: 10-22-2024 Colonoscopy Colonoscopy GI Routine Family history of malignant neoplasm of colon 1 Occurrences starting 10/22/2023 until 10/22/2024 [employer] Work Phone: Comment on above: 1 Occurrences starti ng 10/22/2023 until 10/22/2024 Payers Date Payer Category Payer Private Health Insurance [facility] PL[facility] [id number] 2023-Present [phone] [address] [address] [place] [address] [id number] 1960 Unknown [id number] [id number]. 2.593 1960 Unknown [id number] 2.16.840.1.575760.3.579. 2.593 1960 Unknown [id number] 2.16.840.1.182454.3.579. 2.593 1960 Unknown [id number] 2.16.840.1.402786.3.579. 2.593 1960 Unknown [id number] 2.16.840.1.163773.3.579. 2.593 1960 Unknown [id number] 2.16.840.1.225000.3.579. 2.593 1960 Unknown [id number] 2.16.840.1.708106.3.579. 2.593 1960 Unknown [id number] 2.16.840.1.513249.3.579. 2.1286 1960 Unknown [id number] 2.16.840.1.398536.3.579. 2.1286 1960 Unknown [id number] 2.16.840.1.169703.3.579. 2.1286 1960 Unknown [id number] 2.16.840.1.078280.3.579. 2.1286 1960 Unknown [id number] 2.16.840.1.743305.3.579. 2.1286 1959 Private Health Insurance [id number] 1959 Self-pay [id number] Social History Date Type Detail Facility Start: 12-31-2022 Tobacco smoking stat [facility] Ex-smoker [facility] End: 08-28-1998 History of tobacco use Current smoker [facility] End: 08-28-1998 History of tobacco use Cigarette Smoker [facility] Start: 12-31-2022 Tobacco use and exposure Smoke less tobacco non-user [facility] Start: 10-22-2023 Alcohol intake Current drinke r of alcohol (finding) [facility] Start: 10-18-2020 End: 12-30-2021 History of Social function [facility] Work Phone: Start: 10-18-2020 End: 12-30-2021 Alcohol Use Disorder Identification Test - Consumption [AUDIT-C] [facility] Work Phone: How often to you hav e a drink containing alcohol? Monthly or less [facility] Work Phone: How many standard dr inks containing alcohol do you have on a typical day? 5 or 6 [facility] How often do you hav e 6 or more drinks on 1 occasion? Less than monthly [facility] Childcare Unknown [facility] Start: 09-28-2018 Alcohol Comment social [facility] Start: 1960 Sex Assigned At Not on file [facility] History of Present illness Narrative 10-22-2023 John Pineda, SRINIVASAN-PHYSICAL THERAPIST ASSISTANT - 10/22/2023 3:30 PM EST Note Date [...] 10/11/2018 Performed by Nubia Nogueira DO at [facility] ESOPHAGOGASTRODUODENOSCOPY N/A 07/04/2021 Performed by Nubia Nogueira DO at [facility] HYSTERECTOMY 2008 OOPHORECTOMY Allergies Allergen Reactions Penicillins [...] mouth daily., Disp: , Rfl: peg 3350-sod sulf,hkdb-gpn-lsn 178.7-7.3-0.5 gram recon soln, Take 1 kit [...] patient/family/caregiver Referring and communicating with other health pet caregiver Family history of malignant neoplasm of colon [Z80.0] BETTY SMITH [facility] [place] This note was created with the assistance of a speech recognition program. While intending to generate a timely document that accurately reflects the content of the visit, no guarantee can be provided that every grammatical or spelling mistake has been or will be identified or corrected. Thank you for your understanding. BETTY Smith 10/22/23 1550 documented in this encounter [facility] Evaluation note Note Date & Type Note Facility Evaluation note Diagnosis Family history of malignant neoplasm of colon- Primary Family history of colon cancer Family history of malignant neoplasm of gastrointestinal tract documented in this encounter [facility] Instructions Note Date & Type Note Facility Instructions Not on filedocumented in this en counter [facility] Summary Purpose Family History No Family History Records FoundNo Family History Records FoundNo Family History Records Found Advance Directives No Advanced Directives Records FoundNo Advanced Directives Records FoundNo Advanced Directives Records Found Additional Source Comments INFORMATION SOURCE (unrecogn ized section and content) DATE CREATED AUTHOR 12/28/2022 [facility] DATE CREATED AUTHOR AUTHOR'S ORGANIZ ATION 10/28/2023 [facility] [facility] DATE CREATED AUTHOR AUTHOR'S ORGANIZ ATION 11/07/[address] [facility] Reason for Visit (unrecogniz ed section and content) Reason Comments Colon Cancer Screening 5 year recall, sam finley history of colon cancer Care Teams (unrecognized sec tion and content) Nutrition Faculty Member Relationship Specialty Start Date End Date Real Kimball MD [address] [place] [address] PCP - General Family Medicine 09/22/18 FOR [...] BE BASED ON THE PRIMARY CLINICAL RECORDS. [facility]. provides no warranty or guarantee of the accuracy or completeness of information in this document.
--- NOTE | 2024-02-16 06:17 | ED.NAVMDI1 ---
HPI - Nausea/Vomiting/Diarrhea General Chief complaint: Nausea/Vomiting/Diarrhea Stated complaint: VOMITTING Time Seen by Provider: 02/16/24 06:04 Source: patient Mode of arrival: ambulance Limitations: no limitations History of Present Illness HPI Narrative: 63-year-old female presents to the emergency department for nausea and vomiting. This has been an ongoing issue for a month and this time it came back at 1 AM. She was seen here yesterday and had a negative CAT scan and negative blood work. She had follow-up appointment with her doctor who ordered a HIDA scan. It has not yet been scheduled. No hematemesis or fever. Related Data Home Medications ?Medication ?Instructions ?Recorded ?Confirmed diclofenac sodium 75 mg mg PO 02/15/24 tablet,delayed release hyoscyamine sulfate 0.125 mg mg 02/15/24 sublingual tablet leflunomide 20 mg tablet mg 02/15/24 levothyroxine 150 mcg tablet mcg 02/15/24 liothyronine 5 mcg tablet mcg 02/15/24 omeprazole 20 mg capsule,delayed mg 02/15/24 release Previous Rx's ?Medication ?Instructions ?Recorded hydrocodone 5 mg-acetaminophen 325 1 tab PO Q4H PRN pain #10 tabs 02/15/24 mg tablet ondansetron 4 mg disintegrating 4 mg PO Q4H PRN nausea and 02/15/24 tablet vomiting 3 days #6 tabs Allergies Allergy/AdvReac Type Severity Reaction Status Date / Time Sulfa (Sulfonamide Allergy Verified 02/16/24 06:11 Antibiotics) Review of Systems ROS Narrative A ten point review of systems is negative except as noted above. Exam Narrative Exam Narrative: Nurses note and vital signs reviewed and patient is not hypoxic. General: The patient appears well and in no apparent distress. Patient is resting comfortably on cart. Skin: Warm, dry, no pallor noted. There is no rash noted. Head: Normocephalic, atraumatic Eye: Normal conjunctiva, no drainage Ears, Nose, Mouth, and Throat: oral mucosa is moist. Nares patent. Cardiovascular: Regular Rate and Rhythm Respiratory: Patient is in no distress, no accessory muscle use, lungs are clear to auscultation, no wheezing, rales or rhonchi Back: non-tender GI: Soft and no apparent tenderness Musculoskeletal: The patient has no evidence of calf tenderness, no pitting edema, symmetrical pulses noted bilaterally Neurological: A&O, normal speech Psychiatric: Cooperative Constitutional Vital Signs, click to edit/add: Last Vital Signs Temp 98.0 F 02/16/24 06:06 Pulse 80 02/16/24 06:06 Resp 16 02/16/24 06:06 BP 160/87 H 02/16/24 06:06 Pulse Ox 96 02/16/24 06:06 O2 Del Method Room Air 02/16/24 06:06 Course Vital Signs Vital signs: Vital Signs Temperature 98.0 F 02/16/24 06:06 Pulse Rate 80 02/16/24 06:06 Respiratory Rate 16 02/16/24 06:06 Blood Pressure 160/87 H 02/16/24 06:06 Pulse Oximetry 96 02/16/24 06:06 Oxygen Delivery Method Room Air 02/16/24 06:06 Temperature 98.0 F 02/16/24 06:06 Pulse Rate 80 02/16/24 06:06 Respiratory Rate 16 02/16/24 06:06 Blood Pressure 160/87 H 02/16/24 06:06 Pulse Oximetry 96 02/16/24 06:06 Oxygen Delivery Method Room Air 02/16/24 06:06 MDM - Nausea/Vomiting/Diarrhea MDM Narrative Medical decision making narrative: Tests are ordered and the patient is signed out to Dr. Alicia at change of shift. Discharge Plan Discharge Patient Disposition: Still a Patient
--- NOTE | 2024-02-16 06:19 | PC.NURSE ---
Pt presents to ER for 2nd time in 24 hour period for nausea and vomiting with epigastric pain Pt recently had an ultrasound which showed concern for the gallbladder When pt came in yesterday she stated she was supposed to have a CT done (ordered by Dr. Kimball) This was completed in the ER but came back mostly negative Per pt and her , after leaving the hospital yesterday the pt followed up with Dr. Kimball who told her he would like for her to have a HIDA scan done but it will take a few days to get it scheduled Pt presents this morning stating that she has been vomiting since 1am and would like for the ER physician to send her for that scan now Pt states she had a minimal dinner last night trying to avoid this happening again kylie
[2024-02-16] MEDS: 0.9 % SODIUM CHLORIDE 1,000 ML 1000 ML IV (06:38)
[2024-02-16] MEDS: ONDANSETRON PF 4 MG/2 ML VIAL IV (06:38)
[2024-02-16 06:40] LABS: Basophils Percent Auto 0.7 % (0.2-2.0); Eosinophils Percent Auto 0.9 % (0.9-7.0); Hematocrit 39.6 % (36.0-48.0); Hemoglobin 12.7 g/dL (12.0-16.0); Immature Granulocytes Abs Auto 0.01 10^3/uL (0.00-0.03); Immature Granulocytes Pct Auto 0.2 % (0.0-0.5); Lymphocytes Absolute Auto 0.9 10^3/uL (1.2-3.8); Lymphocytes Percent Auto 21.8 % (20.5-60.0); Mean Corpuscular HGB Conc 32.1 g/dL (29.9-35.2); Mean Corpuscular Hemoglobin 30.5 pg (26.7-34.0); Mean Corpuscular Volume 95.2 fL (81.0-99.0); Mean Platelet Volume 9.1 fL (9.5-13.5); Monocytes Absolute Auto 0.3 10^3/uL (0.3-0.8); Monocytes Percent Auto 6.8 % (1.7-12.0); Neutrophils Percent Auto 69.6 % (43.0-75.0); Platelet Count 179 10^3/uL (150-450); Red Blood Count 4.16 10^6/uL (4.20-5.40); Red Cell Distribution Width 13.1 % (11.0-15.0); White Blood Count 4.3 10^3/uL (4.0-11.0)
[2024-02-16 06:58] LABS: Alanine Aminotransferase 28 U/L (14-59); Albumin Level 3.5 g/dL (3.4-5.0); Alkaline Phosphatase 63 U/L (46-116); Amylase 21 U/L (25-115); Anion Gap 10.1; Aspartate Amino Transferase 38 U/L (15-37); BUN Creatinine Ratio 9.8; Bilirubin Direct 0.1 mg/dL (0.0-0.2); Bilirubin Total 0.4 mg/dL (0.2-1.0); Calcium 8.9 mg/dL (8.5-10.1); Carbon Dioxide 31.7 mmol/L (21.0-32.0); Chloride 104 mmol/L (98-107); Estimated GFR (African America >60 (>=60); Estimated GFR (Non-African Ame >60 (>=60); Globulin 3.4 g/dL; Glucose 115 mg/dL (74-106); Potassium 3.8 mmol/L (3.5-5.1); Sodium 142 mmol/L (136-145); Total Protein 6.9 g/dL (6.4-8.2)
--- NOTE | 2024-02-16 07:19 | PC.NURSE ---
patient seen for same yesterday and discharged home with plan to do HIDA scan outpatient and follow up with Dr. Kimball. Patient saw Dr. Kimball after leaving here but patient did not have HIDA scheduled. Patient reports she ate stuffed peppers last night but they were bland because we used brown rice. Patient had been educated on need to avoid spicy, fatty foods for a while and stick to a very bland, low fat diet until things improved. patient reports she began having nausea, vomiting, abdominal pain, and diarrhea again at 0100. Patient states, i can't keep doing this, Id like to do the HIDA scan today and get this taken care of so I can go back to work. Patient resting in bed, advised that we still need urine sample. IV fluids are infusing at this time and patient reports nausea is improved.
--- NOTE | 2024-02-16 07:59 | P.HP_ITS ---
HPI H&P: HPI History of Present Illness Chief complaint: VOMITTING Narrative: Patient was seen and evaluated in the emergency room yesterday morning, in my office yesterday afternoon due to increasing abdominal pain. She is been on omeprazole which helps some but not relieving her symptoms. Levsin same thing. Previous ultrasound of the abdomen showed possible common bile duct. She does have elevated liver function test. Pain became worse again overnight. Patient Jyoti presented to the emergency room today with increasing abdominal pain. Liver function test still slightly elevated. Amylase and lipase are normal. When I saw patient in the emergency room, she was fairly comfortable in the bed somewhat, uncomfortable secondary to pain. No other complaints. Denies chest pain or shortness of breath. No diarrhea. No UTI symptoms. Review of urinalysis from previous day showed positive nitrates of possible early UTI. No signs of a kidney stone. Opioid HPI Opioid Management Most Recent Opioid Data: No Data to Display Review of Systems ROS Status of ROS 10 or more systems reviewed and unremark able except as noted in history and below Meds Home Medications and Allergies Home Medications ?Medication ?Instructions ?Recorded ?Confirmed ?Type diclofenac sodium 75 mg mg PO 02/15/24 History tablet,delayed release hydrocodone 5 mg-acetaminophen 325 1 tab PO Q4H PRN pain #10 tabs 02/15/24 Rx mg tablet hyoscyamine sulfate 0.125 mg mg 02/15/24 History sublingual tablet leflunomide 20 mg tablet mg 02/15/24 History levothyroxine 150 mcg tablet mcg 02/15/24 History liothyronine 5 mcg tablet mcg 02/15/24 History omeprazole 20 mg capsule,delayed mg 02/15/24 History release ondansetron 4 mg disintegrating 4 mg PO Q4H PRN nausea and 02/15/24 Rx tablet vomiting 3 days #6 tabs Allergies Allergy/AdvReac Type Severity Reaction Status Date / Time Sulfa (Sulfonamide Allergy Verified 02/16/24 06:11 Antibiotics) Exam Constitutional Vital Signs, click to edit/add: Last Vital Signs Temp 98.0 F 02/16/24 06:06 Pulse 80 02/16/24 06:06 Resp 16 02/16/24 06:06 BP 153/86 H 02/16/24 07:30 Pulse Ox 95 02/16/24 07:30 O2 Del Method Room Air 02/16/24 06:06 Documenting provider has reviewed patient's vital signs: yes Common normals: apparent distress (Mild painful distress) Chest Common normals: inspection of chest normal and palpation of chest normal Respiratory Common normals: normal respiratory effort, no retractions and no use of accessory muscles Cardio Common normals: regular rate, regular rhythm and no murmurs GI Common normals: Normal to inspection, nondistended, normoactive bowel sounds present and soft to palpation; tender Palpation: tender (More in upper abdomen.) Details: epigastric, LUQ, RUQ and Chapman's sign Extremity Common normals: normal to inspection and full ROM Neuro Common normals: oriented x3 and CN's II-XII intact bilaterally Results Labs Labs: Short CBC 02/16/24 Range/Units 06:15 WBC 4.3 (4.0-11.0) 10^3/uL Hgb 12.7 (12.0-16.0) g/dL Hct 39.6 (36.0-48.0) % Plt Count 179 (150-450) 10^3/uL BMP 02/16/24 06:15 Sodium 142 Potassium 3.8 Chloride 104 Carbon Dioxide 31.7 BUN 8.0 Creatinine 0.82 Glucose 115 H Calcium 8.9 Liver Function 02/16/24 Range/Units 06:15 Total Bilirubin 0.4 (0.2-1.0) mg/dL Direct Bilirubin 0.1 (0.0-0.2) mg/dL AST 38 H (15-37) U/L ALT 28 (14-59) U/L Alkaline Phosphatase 63 (46-116) U/L Albumin 3.5 (3.4-5.0) g/dL Assessment and Plan Assessment and Plan (1) Abdominal pain: Plan SoundIntractable abdominal pain. Resulting in elevated blood pressure. Mildly elevated liver function test. The abdomen showed possible enlarged, bowel blood. CT scan from yesterday did not confirm. Try to obtain HIDA scan today to look at gallbladder function. Start patient on IV Protonix for improved reflux control as her pain is more at nighttime. IV fluids for mild dehydration symptoms. Elevated liver function test-see plan as outlined above Positive urinalysis from yesterday-repeat today with culture. Start patient on IV antibiotics Admission status: Intractable abdominal pain. Awaiting HIDA scan. Place patient in observation. Medically necessary treatment at this point may only span 1 midnight.
[2024-02-16 08:43] LABS: Bilirubin Urine NEGATIVE (NEGATIVE); Blood Urine NEGATIVE (NEGATIVE); Clarity Urine CLEAR (CLEAR); Color Urine LT. YELLOW (YELLOW); Glucose Urine UA NEGATIVE (NEGATIVE); Ketones Urine NEGATIVE (NEGATIVE); Leukocyte Esterase Urine NEGATIVE (NEGATIVE); Nitrite Urine NEGATIVE (NEGATIVE); Protein Urine NEGATIVE (NEG/TRACE); Urobilinogen Urine 0.2 EU/dL (0.2-1.0); pH Urine 5.5 (5.0-9.0)
--- OUTSIDE RECORDS SUMMARY | 2024-02-16 08:45 | XMS_ITS | CCD ---
Author Organization [facility] Care Team Providers Care Doctor Of Dental Medicine Name Role Phone AVERY MCKNIGHT Attending Unavailable [...] HOY ., DR NOBLE Primary Care Unavailable DOS RIOS, DR CALLY Aguila Consulting Unavailable HOY ., DR NOBLE Consulting Unavailable HOY ., DR NOBLE Attending Unavailable HOY ., DR NOBLE Admyordan Unavailable HOY ., DR NOBLE Primary Care Unavailable CASANDRA ALLEN Attending Unavailable CASANDRA ALLEN Admitting Unavailable BRIANY ., DR NOBLE Primary Care Unavailable CASANDRA ALLEN Consulting Unavailable Real Kimball MD Primary Care Provider [phone] JOHN PINEDA Attending Unavailable CHONG KIMBALLLAS [...] Facility (1 source) Penicillin Drug Allergy [facility] (1 source) Sulfonamides (Antibiotic) Drug allergy (disorder) [facility] (3 sources) Penicillins; Translations: [PENICILLINS] Propensity to adverse reactions to drug 1 [facility] (3 sources) sulfabenzamide; Translations: [SULFABENZAMIDE] Drug Allergy 9 [facility] (3 sources) Sulfonamides (Antibiotic); Translations: [SULFA (SULFONAMIDE ANTIBIOTICS)] Propensity to adverse reactions to drug 4 [facility] Medications Current Medications Medication Drug Class(es) Dates Sig (Normalized) Sig (Original) lactobacillus acidophilus [id number] unt / pectin 100 mg oral tablet [...] and at bedtime. 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 Admission #: [id number] Family : Order #: [id number] CLICK HERE TO VIEW EXAM RADIOLOGY REPORT [...] breast cancer at age 70. LOCATION: [facility] BREAST COMPOSITION: Heterogeneously dense,which may obscure [...] MD on 10/20/2022 at 12:00 Normal [facility] Covid-19 PCR (CVDTB)on SARS-CoV-2 (COVID-19) RNA EMMANUEL+probe Ql (Unsp spec) Not detected Normal NOT DETECTED [facility] Comment on above: Result Comment: When [...] for this test is supported by the [place] of Health and Human Service's declaration that [...] used). Performed By: #### C VDTBH #### [facility] [address] [place] [address] Dr. Cindi Iniguez INFLUENZA A AND B AGon 10-08 [facility] SEE BELOW Normal [facility] Comment on above: Result Comment: Nega tive for Flu A protein angiten. Infection due to Flu A cannot be ruled out. Flu A angiten in the sample may be below the detection limit of the test. Performed By: #### C MP, BNP, HSTROPN #### [facility] [address] [place] [address] Dr. Cindi Iniguez INFLUBNEGH SEE BELOW Normal [facility] Comment on above: Result Comment: Nega tive for Flu B protein antigen. Infection due to Flu B cannot be ruled out. Flu B antigen in the sample may be below the detection limit of the test. Performed By: #### C MP, BNP, HSTROPN #### [facility] [address] [address] [address] Cindi Iniguez INFLUENZA A AG Negative Normal NEGATIVE SEE COMMENT [facility] Comment on above: Performed By: #### C MP, BNP, HSTROPN #### [facility] [address] [place] [address] Dr. Cindi Iniguez INFLUENZA B AG Negative Normal NEGATIVE SEE COMMENT [facility] Comment on above: Performed By: #### C MP, BNP, HSTROPN #### [facility] [address] [place] [address] Dr. Cindi Iniguez [facility] 07-09 SARS-CoV-2 (COVID-19) RNA EMMANUEL+probe Ql (Unsp spec) Not detected Normal NOT DETECTED [facility] Comment on above: Result Comment: When [...] for this test is supported by the [employer] of Health and Human Service's declaration that [...] used). Performed By: #### C VDTBH #### [facility] [address] [place] [address] Dr. Cindi Iniguez BNPon 04-14-2022 Natriuretic peptide B (Bld) [Mass/Vol] 583.0 pg/mL Normal <=900.0 [facility] Comment on above: Performed By: #### C MP, BNP, HSTROPN #### [facility] [address] [place] [address] Dr. Cindi Iniguez CBC AUTO DIFFon 04-14-2022 BASO # 0.0 103/ul Normal 0.0-0.1 [facility] Comment on above: Performed By: #### C BC #### [facility] [address] [place] [address] Dr. Cindi Iniguez Basophils/100 WBC (Bld) 0.2 % Normal 0.2-2.0 [facility] Comment on above: Performed By: #### C BC #### [facility] [address] [place] [address] Dr. Cindi Iniguez EO # 0.0 103/ul Normal 0.0-0.7 [facility] Comment on above: Performed By: #### C BC #### [facility] [address] [place] [address] Dr. Cindi Iniguez Eosinophils/100 WBC (Bld) 0.3 % Critically low 0.9-7.0 [facility] Comment on above: Performed By: #### C BC #### [facility] [address] [place] [address] Dr. Cindi Iniguez Erythrocyte distribution width (RBC) [Ratio] 12.6 % Normal 11.0-15.0 [facility] Comment on above: Performed By: #### C BC #### [facility] [address] [place] [address] Dr. Cindi Iniguez Hematocrit (Bld) [Volume fraction] 43.3 % Normal 36.0-48.0 [facility] Comment on above: Performed By: #### C BC #### [facility] [address] [place] [address] Dr. Cindi Iniguez Hemoglobin (Bld) [Mass/Vol] 14.5 g/dL Normal 12.0-16.0 [facility] Comment on above: Performed By: #### C BC #### [facility] [address] [place] [address] Dr. Cindi Iniguez IG # 0.07 10e3/ul Critically high 0.00-0.03 [facility] Comment on above: Performed By: #### C BC #### [facility] [address] [place] [address] Dr. Cindi Iniguez IG % 0.5 % Normal 0.0-0.5 [facility] Comment on above: Performed By: #### C BC #### [facility] [address] [place] [address] Dr. Cindi Iniguez LYMPH # 1.8 103/ul Normal 1.2-3.8 [facility] Comment on above: Performed By: #### C BC #### [facility] [address] [place] [address] Dr. Cindi Iniguez Lymphocytes/100 WBC (Bld) 12.9 % Critically low 20.5-60.0 [facility] Comment on above: Performed By: #### C BC #### [facility] [address] [place] [address] Dr. Cindi Iniguez MANUAL DIFF REQ NO Normal [facility] Comment on above: Performed By: #### C BC #### [facility] [address] [place] [address] Dr. Cindi Iniguez MCH (RBC) [Entitic mass] 30.5 pg Normal 26.7-34.0 [facility] Comment on above: Performed By: #### C BC #### [facility] [address] [address] [address] Cindi Iniguez MCHC (RBC) [Mass/Vol] 33.5 g/dL Normal 29.9-35.2 [facility] Comment on above: Performed By: #### C BC #### [facility] [address] [address] [address] Cindi Iniguez MCV (RBC) [Entitic vol] 91.0 fL Normal 81.0-99.0 [facility] Comment on above: Performed By: #### C BC #### [facility] [address] [address] [address] Cindi Iniguez MONO # 1.0 103/ul Critically high 0.3-0.8 [facility] Comment on above: Performed By: #### C BC #### [facility] [address] [place] [address] Dr. Cindi Iniguez Monocytes/100 WBC (Bld) 7.1 % Normal 1.7-12.0 [facility] Comment on above: Performed By: #### C BC #### [facility] [address] [address] [address] Cindi Iniguez NEUT # 10.9 103/ul Critically high 1.4-6.5 [facility] Comment on above: Performed By: #### C BC #### [facility] [address] [address] [address] Cindi Iniguez Neutrophils/100 WBC (Bld) 79.0 % Critically high 43.0-75.0 [facility] Comment on above: Performed By: #### C BC #### [facility] [address] [address] [address] Cindi Iniguez Platelet mean volume (Bld) [Entitic vol] 8.8 fL Critically low 9.5-13.5 [facility] Comment on above: Performed By: #### C BC #### [facility] [address] [address] [address] Cindi Iniguez PLT 207 103/ul Normal 150-450 [facility] Comment on above: Performed By: #### C BC #### [facility] [address] [address] [address] Cindi Iniguez RBC 4.76 106/ul Normal 4.20-5.40 [facility] Comment on above: Performed By: #### C BC #### [facility] [address] [address] [address] Cindi Iniguez WBC 13.8 103/ul Critically high 4.0-11.0 [facility] Comment on above: Performed By: #### C BC #### [facility] [address] [address] [address] Cindi Iniguez CTA CHEST WO W [...] HERNÁN BAR Date: 2022-04-14 16:28 Normal [facility] PROF 14(COMP METB)on Albumin [Mass/Vol] 3.5 g/dL Normal 3.4-5.0 [facility] Comment on above: Performed By: #### C MP, BNP, HSTROPN #### [facility] [address] [address] [address] Cindi Iniguez Albumin/Globulin [Mass ratio] 1.0 {ratio} Normal [facility] Comment on above: Performed By: #### C MP, BNP, HSTROPN #### [facility] [address] [place] [address] Dr. Cindi Iniguez ALP [Catalytic activity/Vol] 64 U/L Normal 46-116 [facility] Comment on above: Performed By: #### C MP, BNP, HSTROPN #### [facility] [address] [place] [address] Dr. Cindi Iniguez ALT [Catalytic activity/Vol] 44 U/L Normal 14-59 [facility] Comment on above: Performed By: #### C MP, BNP, HSTROPN #### [facility] [address] [place] [address] Dr. Cindi Iniguez Anion gap [Moles/Vol] 12.5 mmol/L Normal [facility] Comment on above: Performed By: #### C MP, BNP, HSTROPN #### [facility] [address] [place] [address] Dr. Cindi Iniguez AST [Catalytic activity/Vol] 21 U/L Normal 15-37 [facility] Comment on above: Performed By: #### C MP, BNP, HSTROPN #### [facility] [address] [place] [address] Dr. Cindi Iniguez Bilirubin [Mass/Vol] 0.3 mg/dL Normal 0.2-1.0 [facility] Comment on above: Performed By: #### C MP, BNP, HSTROPN #### [facility] [address] [place] [address] Dr. Cindi Iniguez Calcium [Mass/Vol] 9.1 mg/dL Normal 8.5-10.1 [facility] Comment on above: Performed By: #### C MP, BNP, HSTROPN #### [facility] [address] [place] [address] Dr. Cindi Iniguez Chloride [Moles/Vol] 97 mmol/L Critically low 98-107 [facility] Comment on above: Performed By: #### C MP, BNP, HSTROPN #### [facility] [address] [address] [address] Cindi Iniguez CO2 [Moles/Vol] 29.8 mmol/L Normal 21.0-32.0 [facility] Comment on above: Performed By: #### C MP, BNP, HSTROPN #### [facility] [address] [place] [address] Dr. Cindi Iniguez Creatinine [Mass/Vol] 1.06 mg/dL Critically high 0.55-1.02 [facility] Comment on above: Performed By: #### C MP, BNP, HSTROPN #### [facility] [address] [place] [address] Dr. Cindi Iniguez EGFR-AF EQUATORIAL GUINEAN >60 Normal >=60 [facility] Comment on above: Performed By: #### C MP, BNP, HSTROPN #### [facility] [address] [place] [address] Dr. Cindi Iniguez EGFR-NON AF EQUATORIAL GUINEAN 53 mL/min/1.73m2 Critically low >=60 [facility] Comment on above: Performed By: #### C MP, BNP, HSTROPN #### [facility] [address] [place] [address] Dr. Cindi Iniguez Globulin (S) [Mass/Vol] 3.6 g/dL Normal [facility] Comment on above: Performed By: #### C MP, BNP, HSTROPN #### [facility] [address] [place] [address] Dr. Cindi Iniguez Glucose [Mass/Vol] 109 mg/dL Critically high 74-106 [facility] Comment on above: Performed By: #### C MP, BNP, HSTROPN #### [facility] [address] [place] [address] Dr. Cindi Iniguez Potassium [Moles/Vol] 4.3 mmol/L Normal 3.5-5.1 [facility] Comment on above: Performed By: #### C MP, BNP, HSTROPN #### [facility] [address] [place] [address] Dr. Cindi Iniguez Protein [Mass/Vol] 7.1 g/dL Normal 6.4-8.2 [facility] Comment on above: Performed By: #### C MP, BNP, HSTROPN #### [facility] [address] [place] [address] Dr. Cindi Iniguez Sodium [Moles/Vol] 135 mmol/L Critically low 136-145 [facility] Comment on above: Performed By: #### C MP, BNP, HSTROPN #### [facility] [address] [place] [address] Dr. Cindi Iniguez Urea nitrogen [Mass/Vol] 17.0 mg/dL Normal 7.0-18.0 [facility] Comment on above: Performed By: #### C MP, BNP, HSTROPN #### [facility] [address] [place] [address] Dr. Cindi Iniguez Urea nitrogen/Creatinine [Mass ratio] 16.0 mg/mg Normal [facility] Comment on above: Performed By: #### C MP, BNP, HSTROPN #### [facility] [address] [place] [address] Dr. Cindi Iniguez PROTIMEon 04-14-2022 INR Coag (PPP) [Relative time] 0.93 {INR} Normal [facility] Comment on above: Performed By: #### P TT, PT #### [facility] [address] [place] [address] Dr. Cindi Iniguez INR GUIDELINES SEE BELOW Normal [facility] Comment on above: Result Comment: MESSI RED INR: 2.0 - 3.0 CONDITIONS NOT LISTED BELOW 2.5 - 3.5 FOR PROSTHETIC HEART VALVE REPLACEMENT 2.5 - 3.5 RECURRENT THROMBOSIS Performed By: #### P TT, PT #### [facility] [address] [place] [address] Dr. Cindi Iniguez PT Coag (PPP) [Time] 10.1 s Normal 9.0-11.6 [facility] Comment on above: Performed By: #### P TT, PT #### [facility] [address] [place] [address] Dr. Cindi Iniguez PTTon 04-14-2022 aPTT Coag (Bld) [Time] 23.8 s Normal 22.3-36.2 [facility] Comment on above: Performed By: #### C MP, BNP, HSTROPN #### [facility] [address] [address] [address] Cindi Iniguez TROPONIN, HIGH SENSITIVITYon 04-14-2022 HSTROP 27.4 pg/mL Normal 4.0-51.3 [facility] Comment on above: Result Comment: CUT- OFF POINTS HAVE BEEN ESTABLISHED BASED ON THE FOURTH UNIVERSAL DEFINITIONS OF MYOCARDIAL INFARCTION. THE UPPER REFERENCE LIMIT (URL) OF TROPONIN, DEFINED THE 99TH PERCENTILE OF cTnI DISTRIBUTION IN A REFERENCE POPULATION, HAS BEEN CONFIRMED THE DECISION THRESHOLD FOR CT DIAGNOSIS. Performed By: #### C MP, BNP, HSTROPN #### [facility] [address] [place] [address] Dr. Cindi Iniguez [facility]-19 PCR [facility]on 03-08 SARS-CoV-2 (COVID-19) RNA EMMANUEL+probe Ql (Unsp spec) Detected Critically abnormal NOT DETECTED [facility] Comment on above: Result Comment: This test is not yet approved or cleared by the [place] FDA. When there are no FDA-approved or cleared tests available, and other criteria are met, FDA can make tests available under an emergency access mechanism called an Emergency Use Authorization (EUA). The EUA for this test is supported by the [employer] of Health and Human Service's (HHS's) declaration [...] By: #### C MP, BNP, HSTROPN #### [facility] [address] [place] [address] Dr. Cindi Iniguez Vital Signs Date Time Vital Sign Value Performing Clinician Faci lity 10-22-2023 15:23-0500 Body mass index (BMI) [Ratio] 36.39 kg/m2 John Pineda TIME LOCK EXPERT-HVAC SPECIALIST Work Phone: [facility] 10-22-2023 15:23-0500 Body weight 96.16 kg John Pineda TIME LOCK EXPERT-HVAC SPECIALIST Work Phone: [facility] Encounters Encounter Date Encounter Type Care Provider Facility Start: 11-06-2023 End: 11-06-2023 Evaluation and management of inpatient CALLY ARREAGA [facility] Start: 11-05-2023 End: 11-06-2023 Evaluation and management of inpatient NUBIA NOGUEIRA [facility] Start: 10-22-2023 ambulatory [facility] Jennifer PINEDA [facility] Start: 10-22-2023 End: 10-22-2023 Office outpatient new 30 minutes John Rodriguez Ross TIME LOCK EXPERT-HVAC SPECIALIST Work Phone: [facility] Comment on above: [...] Clinician Start: 10-11-2018 Colonoscopy John Caitlin núñez TIME LOCK EXPERT-HVAC SPECIALIST Work Phone: Plan of Treatment Date Care Activity Detail Author Start: 10-22-2024 Adult BMI Screening Adult BMI Screen ing [facility] Start: 10-22-2024 Tobacco Screening Tobacco Screening [facility] Start: 11-05-2023 End: 11-05-2023 Admission to same day surgery center 11/05/2023 11:00 AM EST - 11/05/2023 11:30 AM EST Surgery [facility] [address] [place] [address] Nubia Nogueira, DO [address] [place], [place] [id number] COLONOSCOPY DIAGNOSTIC / SCREENING [26126 (CPT )] [facility] Comment on above: COLONOSCOPY DIAGNOST IC / SCREENING [63211 (CPT )] Start: 11-05-2023 End: 11-05-2023 Colonoscopy flx dx w/collj spec when pfrmd COLONOSCOPY DIAGNOSTIC / SCREENING Family history of colon cancer 11/05/2023 11:00 AM [facility] Start: 11-05-2023 Subsequent hospital visit by physician 11/05/2023 11:00 AM EST Hospital Encounter [facility] [address] [place] [address] [phone] Nubia Nogueira, DO [address] [place], [place] [id number] [facility] Start: 10-29-2023 End: 10-29-2023 ambulatory 10/29/2023 2:10 PM EST Support Visit [facility] - Pre Admit [address] [place] [address] [facility] - Pre Admit Start: 10-11-2023 Screening for malign ant neoplasm of colon Colonoscopy [facility] Start: 2010 Administration of varicella zoster vaccine Zoster (Shingles) Vaccine (1 of 2) [facility] Start: 1979 DTaP,Tdap and Td Vac cines (1 - Tdap) DTaP,Tdap and Td Vaccines (1 - Tdap) [facility] Start: 1978 Adult BMI Follow Up Plan Adult BMI Follow Up Plan [facility] Start: 1972 [facility] End: 10-22-2024 Colonoscopy Colonoscopy GI Routine Family history of malignant neoplasm of colon 1 Occurrences starting 10/22/2023 until 10/22/2024 [employer] Work Phone: Comment on above: 1 Occurrences starti ng 10/22/2023 until 10/22/2024 Payers Date Payer Category Payer Private Health Insurance [employer] [id number] 2023-Present [phone] [address] [address] [place] [address] [id number] 1960 Unknown [id number] [id number]. 2.593 1960 Unknown [id number] 2.16.840.1.363904.3.579. 2.593 1960 Unknown [id number] 2.16.840.1.558500.3.579. 2.593 1960 Unknown [id number] 2.16.840.1.685617.3.579. 2.593 1960 Unknown [id number] 2.16.840.1.740466.3.579. 2.593 1960 Unknown [id number] 2.16.840.1.885067.3.579. 2.593 1960 Unknown [id number] 2.16.840.1.792835.3.579. 2.593 1960 Unknown [id number] 2.16.840.1.060678.3.579. 2.1286 1960 Unknown [id number] 2.16.840.1.873363.3.579. 2.1286 1960 Unknown [id number] 2.16.840.1.075586.3.579. 2.1286 1960 Unknown [id number] 2.16.840.1.646339.3.579. 2.1286 1960 Unknown [id number] 2.16.840.1.351907.3.579. 2.1286 1959 Private Health Insurance [id number] Self-pay [id number] Social History Date Type Detail Facility Start: 12-31-2022 Tobacco smoking stat [facility] Ex-smoker [facility] End: 08-28-1998 History of tobacco use Current smoker [facility] End: 08-28-1998 History of tobacco use Cigarette Smoker [facility] Start: 12-31-2022 Tobacco use and exposure Smoke less tobacco non-user [facility] Start: 10-22-2023 Alcohol intake Current drinke r of alcohol (finding) [facility] Start: 10-18-2020 End: 12-30-2021 History of Social function [facility] Work Phone: Start: 10-18-2020 End: 12-30-2021 Alcohol Use Disorder Identification Test - Consumption [AUDIT-C] [facility] Work Phone: How often to you hav e a drink containing alcohol? Monthly or less [facility] Work Phone: How many standard dr inks containing alcohol do you have on a typical day? 5 or 6 [facility] How often do you hav e 6 or more drinks on 1 occasion? Less than monthly [facility] Childcare Unknown [facility] Start: 09-28-2018 Alcohol Comment social [facility] Start: 1960 Sex Assigned At Not on file P [facility] History of Present illness Narrative 10-22-2023 John Pineda, SRINIVASAN-HVAC SPECIALIST - 10/22/2023 3:30 PM EST Note Date [...] 10/11/2018 Performed by Nubia Nogueira DO at [facility] ESOPHAGOGASTRODUODENOSCOPY N/A 07/04/2021 Performed by Nubia Nogueira DO at [facility] HYSTERECTOMY 2008 OOPHORECTOMY Allergies Allergen Reactions Penicillins [...] mouth daily., Disp: , Rfl: peg 3350-sod sulf,qgkw-qek-ldd 178.7-7.3-0.5 gram recon soln, Take 1 kit [...] patient/family/caregiver Referring and communicating with other health career services representative Family history of malignant neoplasm of colon [Z80.0] BETTY SMITH [facility] [place] This note was created with the assistance of a speech recognition program. While intending to generate a timely document that accurately reflects the content of the visit, no guarantee can be provided that every grammatical or spelling mistake has been or will be identified or corrected. Thank you for your understanding. BETTY Smith 10/22/23 1550 documented in this encounter [facility] Evaluation note Note Date & Type Note Facility Evaluation note Diagnosis Family history of malignant neoplasm of colon- Primary Family history of colon cancer Family history of malignant neoplasm of gastrointestinal tract documented in this encounter [facility] Instructions Note Date & Type Note Facility Instructions Not on filedocumented in this en counter [facility] Summary Purpose Family History No Family History Records FoundNo Family History Records FoundNo Family History Records Found Advance Directives No Advanced Directives Records FoundNo Advanced Directives Records FoundNo Advanced Directives Records Found Additional Source Comments INFORMATION SOURCE (unrecogn ized section and content) DATE CREATED AUTHOR 12/28/2022 [facility] DATE CREATED AUTHOR AUTHOR'S ORGANIZ ATION 10/28/2023 [facility] DATE CREATED AUTHOR AUTHOR'S ORGANIZ ATION 11/07/2023 [facility] Reason for Visit (unrecogniz ed section and content) Reason Comments Colon Cancer Screening 5 year recall, sam finley history of colon cancer Care Teams (unrecognized sec tion and content) Doctor Of Dental Medicine Relationship Specialty Start Date End Date Real Kimball MD [address] [place] [address] PCP - General Family Medicine 09/22/18 FOR [...] BE BASED ON THE PRIMARY CLINICAL RECORDS. [facility]. provides no warranty or guarantee of the accuracy or completeness of information in this document.
[2024-02-16 08:50] LABS: Bacteria Urine NONE SEEN #/HPF (NONE SEEN); Mucus Urine NONE SEEN (NONE SEEN); RBC Urine NONE SEEN #/HPF (0-2); Squamous Epithelial Cell Urine FEW #/LPF (NONE/RARE); WBC Urine 0-2 #/HPF (NONE SEEN)
[2024-02-16 08:51] LABS: Urine Culture Indicated ALREADY ORDERED
--- NOTE | 2024-02-16 09:06 | PC.NURSE ---
report given to BILL Will
--- NOTE | 2024-02-16 09:07 | PC.NURSE ---
Patient stable at time of transfer to floor
[2024-02-16] MEDS: CEFTRIAXONE 1,000 MG in 0.9 % SODIUM CHLORIDE 50 ML 100 MG IV (10:15)
[2024-02-16] MEDS: PANTOPRAZOLE SODIUM 40 MG VIAL IV ×2 (10:15→21:33)
[2024-02-16] MEDS: LACTATED RINGER'S SOLUTION 1,000 ML 125 ML IV ×2 (10:16→18:58)
[2024-02-16] MEDS: HYOSCYAMINE SULFATE 0.125 MG TAB.SUBL 0.25 MG SL ×3 (12:04→21:33)
[2024-02-17] VITALS (8 sets, daily range): BP systolic 128–167; BP diastolic 74–88; PULSE 64–83; TEMP 36.3–36.8; O2SAT 91–95
[2024-02-17] MEDS: LACTATED RINGER'S SOLUTION 1,000 ML 125 ML IV ×2 (02:53→11:11)
[2024-02-17] MEDS: ONDANSETRON PF 4 MG/2 ML VIAL IV (05:00)
[2024-02-17] MEDS: HYOSCYAMINE SULFATE 0.125 MG TAB.SUBL 0.25 MG SL ×4 (05:05→21:06)
--- NOTE | 2024-02-17 06:00 | NM_ITS ---
The [address] [address] Patient Name: DEEPA ZAYAS MRN: [id number] date: 1960 Sex: F Assigned Patient Location: Current Patient Location: [place] Accession/Order Number: [id number] Exam Date: 02/17/2024 06:00 Report Date: 02/17/2024 10:44 At the request of: REAL BAUTISTA Procedure: NM hepatobiliary w pharm EXAMINATION: NM hepatobiliary w pharm HISTORY: RUQ pain COMPARISON: No relevant comparison available. TECHNIQUE: Radionuclide hepatobiliary imaging was performed after intravenous injection of 5 mCi technetium 99m mebrofenin with sequential acquisitions every 1 minute for one hour. Hepatobiliary imaging with gallbladder ejection fraction analysis was then performed with sequential imaging every 1 minute for 60 minutes simultaneously after the patient drank 8 ounces of ensure. FINDINGS: LIVER: Normal, prompt and uniform radiotracer uptake and clearing. BILIARY DUCTS: Normal radioisotopic biliary excretion. GALLBLADDER: Normal with no evidence of cystic duct obstruction. INTESTINE: Normal with no evidence of common biliary ductal obstruction. EJECTION FRACTION: 88 % within 60 minutes. (Normal EF > 38%). OTHER: Negative. MA/MA hepatobiliary w pharm IMPRESSION: Normal hepatobiliary scan and ejection fraction Electronically authenticated by: CALLY CURRAN Date: 02/17/2024 10:44
--- NOTE | 2024-02-17 08:09 | P.PN_ITS ---
Progress Note: Subjective Subjective Interval history: HIDA scan completed this morning, normal ejection fraction. No evidence of obstruction. Pain persisting in the abdomen. Worse with eating. Exam Constitutional Vital Signs, click to edit/add: Last Vital Signs Temp 98.2 F 02/17/24 04:28 Pulse 83 02/17/24 04:28 Resp 16 02/17/24 04:28 BP 148/88 H 02/17/24 04:28 Pulse Ox 94 L 02/17/24 04:28 O2 Del Method Room Air 02/17/24 04:28 Documenting provider has reviewed patient's vital signs: yes Common normals: apparent distress (Mild painful distress) Chest Common normals: inspection of chest normal and palpation of chest normal Respiratory Common normals: normal respiratory effort, no retractions and no use of accessory muscles Cardio Common normals: regular rate, regular rhythm and no murmurs GI Common normals: Normal to inspection, nondistended, normoactive bowel sounds present and soft to palpation; tender Palpation: tender (More in upper abdomen.) Details: epigastric, LUQ, RUQ and Chapman's sign Extremity Common normals: normal to inspection and full ROM Neuro Common normals: oriented x3 and CN's II-XII intact bilaterally Progress Note: Objective Labs Labs: Urine 02/16/24 Range/Units 08:32 Urine Color Lt. yellow (YELLOW) Urine Clarity Clear (CLEAR) Urine pH 5.5 (5.0-9.0) Ur Specific [place] 1.020 (1.005-1.025) Urine Protein Negative (NEG/TRACE) mg/dL Urine Glucose (UA) Negative (NEGATIVE) mg/dL Progress Note: A&P Assessment and Plan (1) Abdominal pain: Plan admission finding: intractable abdominal pain. Resulting in elevated blood pressure. Mildly elevated liver function test. The abdomen showed possible enlarged, bowel blood. CT scan from yesterday did not confirm. HIDA scan showed good ejection fraction. No obstruction. Not improved with IV Protonix. Unable to eat secondary to pain. Will add Carafate. Patient in need of EGD. Consult to surgery for tomorrow. Elevated liver function test-monitor daily Positive urinalysis from yesterday-repeat today with culture. Follow-up on culture Admission status: Intractable abdominal pain. Initially placed in observation bed. Was in observation past 24 hours secondary to awaiting the ability to obtain the dye for the HIDA scan and completing the HIDA scan with results. Pain persisting despite initial workup and treatment. With failed outpatient treatment and failed the first 24 hours, will change patient to inpatient status as medically necessary treatment will span 2 midnights ?
[2024-02-17] MEDS: PANTOPRAZOLE SODIUM 40 MG VIAL IV ×2 (09:00→21:06)
[2024-02-17] MEDS: LEFLUNOMIDE 20 MG TABLET PO (09:00)
[2024-02-17] MEDS: LIOTHYRONINE SODIUM 5 MCG TABLET PO (09:00)
[2024-02-17] MEDS: CEFTRIAXONE 1,000 MG in 0.9 % SODIUM CHLORIDE 50 ML 100 MG IV (11:11)
[2024-02-17] MEDS: SUCRALFATE 1 GM TABLET PO ×3 (11:11→21:06)
[2024-02-17 11:12] LABS: Basophils Percent Auto 0.5 % (0.2-2.0); Eosinophils Absolute Auto 0.1 10^3/uL (0.0-0.7); Eosinophils Percent Auto 1.4 % (0.9-7.0); Hematocrit 37.1 % (36.0-48.0); Hemoglobin 12.1 g/dL (12.0-16.0); Immature Granulocytes Abs Auto 0.01 10^3/uL (0.00-0.03); Immature Granulocytes Pct Auto 0.2 % (0.0-0.5); Lymphocytes Absolute Auto 1.1 10^3/uL (1.2-3.8); Lymphocytes Percent Auto 27.5 % (20.5-60.0); Mean Corpuscular HGB Conc 32.6 g/dL (29.9-35.2); Mean Corpuscular Hemoglobin 30.7 pg (26.7-34.0); Mean Corpuscular Volume 94.2 fL (81.0-99.0); Mean Platelet Volume 9.3 fL (9.5-13.5); Monocytes Absolute Auto 0.4 10^3/uL (0.3-0.8); Monocytes Percent Auto 9.7 % (1.7-12.0); Neutrophils Absolute Auto 2.5 10^3/uL (1.4-6.5); Neutrophils Percent Auto 60.7 % (43.0-75.0); Platelet Count 175 10^3/uL (150-450); Red Blood Count 3.94 10^6/uL (4.20-5.40); Red Cell Distribution Width 13.1 % (11.0-15.0); White Blood Count 4.1 10^3/uL (4.0-11.0)
[2024-02-17 11:41] LABS: Alanine Aminotransferase 23 U/L (14-59); Albumin Level 3.2 g/dL (3.4-5.0); Alkaline Phosphatase 55 U/L (46-116); Anion Gap 7.1; Aspartate Amino Transferase 30 U/L (15-37); BUN Creatinine Ratio 10.4; Bilirubin Total 0.3 mg/dL (0.2-1.0); Calcium 8.7 mg/dL (8.5-10.1); Carbon Dioxide 31.7 mmol/L (21.0-32.0); Chloride 106 mmol/L (98-107); Estimated GFR (African America >60 (>=60); Estimated GFR (Non-African Ame >60 (>=60); Globulin 3.2 g/dL; Glucose 108 mg/dL (74-106); Potassium 3.8 mmol/L (3.5-5.1); Sodium 141 mmol/L (136-145); Total Protein 6.4 g/dL (6.4-8.2)
--- NOTE | 2024-02-17 14:09 | SWNOTE1 ---
SW met with pt and in room to discuss dc needs. Pt voiced she is independent with all ADL'S at home. No concerns/needs in regards to discharge at this time. SW to follow as needed.
[2024-02-17] MEDS: LACTATED RINGER'S SOLUTION 1,000 ML 50 ML IV (20:00)
[2024-02-18] VITALS: BP 147/75; PULSE 64; TEMP 36.4; O2SAT 92
[2024-02-18 04:00] VITALS: BP 144/75; PULSE 66; TEMP 36.7; O2SAT 93
[2024-02-18] MEDS: ONDANSETRON PF 4 MG/2 ML VIAL IV (06:01)
[2024-02-18 07:10] LABS: Basophils Percent Auto 0.5 % (0.2-2.0); Eosinophils Absolute Auto 0.1 10^3/uL (0.0-0.7); Eosinophils Percent Auto 1.7 % (0.9-7.0); Hematocrit 39.1 % (36.0-48.0); Hemoglobin 12.9 g/dL (12.0-16.0); Lymphocytes Absolute Auto 1.1 10^3/uL (1.2-3.8); Lymphocytes Percent Auto 25.7 % (20.5-60.0); Mean Corpuscular Hemoglobin 30.9 pg (26.7-34.0); Mean Corpuscular Volume 93.8 fL (81.0-99.0); Mean Platelet Volume 9.3 fL (9.5-13.5); Monocytes Absolute Auto 0.3 10^3/uL (0.3-0.8); Monocytes Percent Auto 7.2 % (1.7-12.0); Neutrophils Absolute Auto 2.7 10^3/uL (1.4-6.5); Neutrophils Percent Auto 64.9 % (43.0-75.0); Platelet Count 179 10^3/uL (150-450); Red Blood Count 4.17 10^6/uL (4.20-5.40); Red Cell Distribution Width 12.9 % (11.0-15.0); White Blood Count 4.2 10^3/uL (4.0-11.0)
[2024-02-18 07:36] LABS: Alanine Aminotransferase 24 U/L (14-59); Albumin Level 3.4 g/dL (3.4-5.0); Alkaline Phosphatase 57 U/L (46-116); Anion Gap 10.4; Aspartate Amino Transferase 34 U/L (15-37); BUN Creatinine Ratio 9.2; Bilirubin Total 0.4 mg/dL (0.2-1.0); Calcium 8.8 mg/dL (8.5-10.1); Chloride 104 mmol/L (98-107); Estimated GFR (African America >60 (>=60); Estimated GFR (Non-African Ame >60 (>=60); Globulin 3.3 g/dL; Glucose 104 mg/dL (74-106); Potassium 3.4 mmol/L (3.5-5.1); Sodium 141 mmol/L (136-145); Total Protein 6.7 g/dL (6.4-8.2)
--- NOTE | 2024-02-18 07:45 | P.DS_ITS ---
DS: Providers Provider Date of admission: 02/17/24 13:05 Primary care physician: Tano Kimball MD Consults: 02/16/24 07:54 Consult to Pharmacy Routine Consulting Provider: Reason for consultation: Please Juliaetta me when Med Rec is Updated Has provider been notified: No 02/17/24 13:01 Consult to General Surgeon Routine Consulting Provider: Lee Quiles Reason for consultation: EGD Has provider been notified: Yes DS: Diagnosis Discharge Diagnosis (1) Abdominal pain: Plan admission finding: intractable abdominal pain. Persisting at the time of discharge Elevated liver function test-resolved Positive urinalysis from yesterday-repeat today with culture. Follow-up on culture Admission status: Intractable abdominal pain. Initially placed in observation bed. Was in observation past 24 hours secondary to awaiting the ability to obtain the dye for the HIDA scan and completing the HIDA scan with results. Pain persisting despite initial workup and treatment. With failed outpatient treatment and failed the first 24 hours, will change patient to inpatient status as medically necessary treatment will span 2 midnights ? ? DS: Summary Hospital Course Hospital Course: Patient mated for intractable abdominal pain. She was undergoing workup as an outpatient. Ultrasound showed dilated common bile duct. CT scan did not confirm, HIDA scan here normal. Patient has pain in proved somewhat in the morning. Rehydrated breakfast and lunch. No real change in her pain pattern. At this point we discussed holding off on the EGD as an outpatient. Patient is in agreement.. Discharged to home in improving condition. Medications see this. Follow-up with me as of tomorrow or next week Time Spent with Patient Time attestation: Total time spent providing and/or coordinating discharge services: Time spent: greater than 30 minutes Exam Constitutional Vital Signs, click to edit/add: Last Vital Signs Temp 98.0 F 02/18/24 04:00 Pulse 66 02/18/24 04:00 Resp 18 02/18/24 04:00 BP 144/75 H 02/18/24 04:00 Pulse Ox 93 L 02/18/24 04:00 O2 Del Method Room Air 02/18/24 04:00 Documenting provider has reviewed patient's vital signs: yes Common normals: apparent distress (Mild painful distress) Chest Common normals: inspection of chest normal and palpation of chest normal Respiratory Common normals: normal respiratory effort, no retractions and no use of accessory muscles Cardio Common normals: regular rate, regular rhythm and no murmurs GI Common normals: Normal to inspection, nondistended, normoactive bowel sounds present and soft to palpation; tender Palpation: tender (More in upper abdomen.) Details: epigastric, LUQ, RUQ and Chapman's sign Extremity Common normals: normal to inspection and full ROM Neuro Common normals: oriented x3 and CN's II-XII intact bilaterally DS: Data Data Completed and Pending Labs on day of discharge: Labs from last 24 hours 02/18/24 02/17/24 06:51 11:02 WBC 4.2 4.1 RBC 4.17 L 3.94 L Hgb 12.9 12.1 Hct 39.1 37.1 MCV 93.8 94.2 MCH 30.9 30.7 MCHC 33.0 32.6 RDW 12.9 13.1 Plt Count 179 175 MPV 9.3 L 9.3 L Neut % (Auto) 64.9 60.7 Lymph % (Auto) 25.7 27.5 [place] % (Auto) 7.2 9.7 Eos % (Auto) 1.7 1.4 Baso % (Auto) 0.5 0.5 Neut # (Auto) 2.7 2.5 Lymph # (Auto) 1.1 L 1.1 L [place] # (Auto) 0.3 0.4 Eos # (Auto) 0.1 0.1 Baso # (Auto) 0.0 0.0 Abs Immat Gran (auto) 0.00 0.01 Imm/Tot Granulo (auto) 0.0 0.2 Sodium 141 141 Potassium 3.4 L 3.8 Chloride 104 106 Carbon Dioxide 30.0 31.7 Anion Gap 10.4 7.1 BUN 6.0 L 7.0 Creatinine 0.65 0.67 Est GFR ( Amer) >60 >60 Est GFR (Non-Af Amer) >60 >60 BUN/Creatinine Ratio 9.2 10.4 Glucose 104 108 H Calcium 8.8 8.7 Total Bilirubin 0.4 0.3 AST 34 30 ALT 24 23 Alkaline Phosphatase 57 55 Total Protein 6.7 6.4 Albumin 3.4 3.2 L Globulin 3.3 3.2 Albumin/Globulin Ratio 1.0 1.0 Discharge Plan Discharge Disposition: Home, Self-Care Condition: Good Discharge Medications: New sucralfate 1 gram Tablet 1 g PO ACHS Qty: 60 11RF pantoprazole [Protonix] 40 mg tablet,delayed release (DR/EC) 40 mg PO DAILY Qty: 30 11RF Continued liothyronine 5 mcg tablet 5 mcg PO QAM leflunomide 20 mg tablet 20 mg PO QDAY hyoscyamine sulfate 0.125 mg tablet, sublingual 0.125 mg sublingual .COMPLEX Rx Instructions: 0.125 mg sublingually before meals and at bedtime; levothyroxine 150 mcg tablet 150 mcg PO QAM Discontinued omeprazole 20 mg capsule,delayed release(DR/EC) 20 mg PO BID diclofenac sodium 75 mg tablet,delayed release (DR/EC) 75 mg PO Q12H PRN (Reason: pain) Activity: resume usual activities as tolerated Diet: other Diet Detail: low fat, bland diet Print Language: Scottish Patient Instructions: Acute Nausea and Vomiting (DC), Acute Diarrhea (ED), Abdominal Pain (DC) Forms: Portal Instructions Follow Up Appointments: February 21 @ 8:45am with Dr. Kimball [phone] February 22 @ 1:30pm with Soraida Hawkins NP (Dr. Quiles' office) [address] [phone] Discharge Date/Time: 02/18/24 15:40
[2024-02-18 07:57] VITALS: BP 129/70; PULSE 72; TEMP 36.6; O2SAT 92
[2024-02-18 10:45] VITALS: O2SAT 93
[2024-02-18] MEDS: PANTOPRAZOLE SODIUM 40 MG VIAL IV (10:56)
[2024-02-18] MEDS: CEFTRIAXONE 1,000 MG in 0.9 % SODIUM CHLORIDE 50 ML 100 MG IV (10:56)
[2024-02-18 13:31] VITALS: BP 153/76; PULSE 73; TEMP 36.9; O2SAT 92
--- NOTE | 2024-02-22 15:34 | CM.DCFOLLOWU ---
Person spoke with:patient How are you feeling? still have diarrhea and some nausea How is your pain? does not feel the greatest Did you understand your discharge instructions? yes Do you have any questions about your discharge instructions? no Were you given any prescriptions at discharge? yes Were you able to get your prescriptions filled? yes Do you understand how to take your medications as ordered? yes Do you have any questions about your follow up appointment and do you plan to keep your follow up appointment? no questions, follow was today, Dr. Kimball added 2 other meds. Is there anything else that you would like to discuss? no Questions/Comments/Concerns/Other: no
== END 2024-02-18 15:40 | disposition home or self-care (01) | DRG 373 ==
LOC: ER 06:40 → MS 08:36
PROVIDERS: Admitting Provider Family Medicine; Emergency Provider Emergency Medicine; PCP Family Medicine; Visit Provider Family Medicine
DX: A04.72 Enterocolitis due to Clostridium difficile, not specified as recurrent (principal); R79.89 Other specified abnormal findings of blood chemistry; I10 Essential (primary) hypertension; R82.90 Unspecified abnormal findings in urine; R11.2 Nausea with vomiting, unspecified; R19.7 Diarrhea, unspecified; E86.0 Dehydration; Z79.899 Other long term (current) drug therapy; Z79.890 Hormone replacement therapy
CPT/HCPCS: 36415; 78227; 80048; 80053; 80076; 81001; 82150; 83690; 85025; 87086; 87493; 87507; 94761; 96361; 96365; 96366; 96375; 96376; 99285; A9537; G0378; J0696; J2405

== ENCOUNTER 2024-02-18 19:25 | Outpatient (REF) | payer OTHER, SELFPAY ==
--- OUTSIDE RECORDS SUMMARY | 2024-02-19 13:01 | XMS_ITS ---
Patient Summarization (C-CDA 2.1 CCD) Created on: February 19, 2024 DEEPA SEARS : 1960 Sex: Undifferentiated Author Organization Sample organization Care Team Providers Care Boom Stick Man Name Role Phone AVERY MCKNIGHT Attending Unavailable HOY ., DR NOBLE Primary Care Unavailable KAYLI .DEEPTI Consulting Unavailabl e AVERY MCKNIGHT Admitting Unavailable [...] HOY ., DR NOBLE Primary Care Unavailable MERSHON, DR CALLY Aguila Consulting Unavailable HOY ., DR NOBLE Consulting Unavailable HOY ., DR NOBLE Attending Unavailable HOY ., DR NOBLE Admyordan Unavailable HOY ., DR NOBLE Primary Care Unavailable CASANDRA ALLEN Attending Unavailable CASANDRA ALLEN Admyordan Unavailable MICHELE ., DR NOBLE Primary Care Unavailable CASANDRA ALLEN Consulting Unavailable Real Kimball MD Primary Care Provider [phone] JOHN PINEDA Attending Unavailable REAL KIMBALL M Referring Unavailable REAL KIMBALL M Primary Care Unavailable NUBIA NOGUEIRA Admitting Unavailable NUBIA NOGUEIRA Attending Unavailable REAL KIMBALL M Primary Care Unavailable CALLY ARREAGA Attending Unavailable REAL KIMBALL Primary Care Unavailable MIRLANDE NUBIA E Attending Unavailable GRILLIS, NUBIA E Referring Unavailable REAL KIMBALL M Primary Care Unavailable Allergies Allergy Classification Reported Allergen(s) Allergy Type Date of Onset Reaction(s) Facility (1 source) Penicillin Drug Allergy [facility] Repository (1 source) Sulfonamides (Antibiotic) Drug allergy (disorder) [facility] (3 sources) Penicillins; Translations: [PENICILLINS] Propensity to adverse reactions to drug 1 [facility] (3 sources) sulfabenzamide; Translations: [SULFABENZAMIDE] Drug Allergy 9 [facility] (3 sources) Sulfonamides (Antibiotic); Translations: [SULFA (SULFONAMIDE ANTIBIOTICS)] Propensity to adverse reactions to drug 4 [facility] Encounters Encounter Date Encounter Type Care Provider Facility Start: 11-06-2023 End: 11-06-2023 Evaluation and management of inpatient CALLY Fernandez GIBSON [facility] Start: 11-05-2023 End: 11-06-2023 Evaluation and management of inpatient NUBIA NOGUEIRA [facility] Start: 10-22-[address] [facility] Start: 10-22-2023 End: 10-22-2023 Office outpatient new 30 minutes [facility] Jennifer OneilPineda INFORMATION SECURITY DIRECTOR-MAILING JOGGER Work Phone: [facility] General Surgery Comment on above: [...] ambulatory DR REAL KIMBALL . Facili ty:H1 Medications Current Medications Medication Drug Class(es) Dates Sig (Normalized) Sig (Original) lactobacillus acidophilus [id number] unt / pectin 100 mg oral tablet [...] and at bedtime. 0 Active peg 3350-sod sulf,ooel-pcx-gdj 178.7-7.3-0.5 gram recon soln (1 source) Start: 10-22-2023 End: 10-23-2023 peg 3350-sod sulf,fybz-iao-nee 178.7-7.3-0.5 gram recon soln Indications: Family history [...] capsule 2 06/27/2022 10/22/2023 Discontinued (Therapy completed) Payers Date Payer Category Payer Private Health Insurance [facility] [id number] 2023-Present [phone] [address] [address] [place] [address] [id number] 1960 Unknown [id number] 2.16.840.1.781257.3.579. 2.593 1960 Unknown [id number] 2.16.840.1.774422.3.579. 2.593 1960 Unknown [id number] 2.16.840.1.360580.3.579. 2.593 1960 Unknown [id number] 2.16.840.1.662143.3.579. 2.593 1960 Unknown [id number] 2.16.840.1.951667.3.579. 2.593 1960 Unknown [id number] 2.16.840.1.363266.3.579. 2.593 1960 Unknown [id number] 2.16.840.1.939733.3.579. 2.593 1960 Unknown [id number] 2.16.840.1.643709.3.579. 2.1286 1960 Unknown [id number] 2.16.840.1.452834.3.579. 2.1286 1960 Unknown [id number] 2.16.840.1.887784.3.579. 2.1286 1960 Unknown [id number] 2.16.840.1.724666.3.579. 2.1286 1960 Unknown [id number] 2.16.840.1.268289.3.579. 2.1286 1959 Private Health Insurance [id number] 1959 Self-pay [id number] Plan of Treatment Date Care Activity Detail Author Start: 10-22-2024 Adult BMI Screening Adult BMI Screen ing [facility] Start: 10-22-2024 Tobacco Screening Tobacco Screening [facility] Start: 11-05-2023 End: 11-05-2023 Admission to same day surgery center 11/05/2023 11:00 AM EST - 11/05/2023 11:30 AM [facility] Surgery [facility] [address] [place] [address] Nubia Nogueira, [address] [place] [address] COLONOSCOPY DIAGNOSTIC / SCREENING [45309 (CPT )] [facility] Comment on above: COLONOSCOPY DIAGNOST IC / SCREENING [48659 (CPT )] Start: 11-05-2023 End: 11-05-2023 Colonoscopy flx dx w/collj spec when pfrmd COLONOSCOPY DIAGNOSTIC / SCREENING Family history of colon cancer 11/05/2023 11:00 AM [facility] Start: 11-05-2023 Subsequent hospital visit by physician 11/05/2023 11:00 AM [facility] Hospital Encounter [facility] [address] [place] [address] Nubia Nogueira, [address] [place] [address] [facility] - Surgery Start: 10-29-2023 End: 10-29-2023 ambulatory 10/29/2023 2:10 PM EST Support Visit [facility] - Pre Admit [address] [place] [id number] [facility] - Pre Admit Start: 10-11-2023 Screening for malign ant neoplasm of colon Colonoscopy [facility] Start: 2010 Administration of varicella zoster vaccine Zoster (Shingles) Vaccine (1 of 2) [facility] Start: 1979 DTaP,Tdap and Td Vac cines (1 - Tdap) DTaP,Tdap and Td Vaccines (1 - Tdap) [facility] Start: 1978 Adult BMI Follow Up Plan Adult BMI Follow Up Plan [facility] Start: 1972 Depression Screening Depression Scre ening [facility] End: 10-22-2024 Colonoscopy Colonoscopy GI Routine Family history of malignant neoplasm of colon 1 Occurrences starting 10/22/2023 until 10/22/2024 [facility] Work Phone: Comment on above: 1 Occurrences starti ng 10/22/2023 until 10/22/2024 Problems Active Problems Problem Classification Problem Date [...] te Episodic/Chronic Other aftercare (1 source) Other detention (current) drug therapy; Translations: [OTH SHERIFF DETECTIVE CURRENT DRUG THERAPY] Onset: 04-15-2022 Episodic Other [...] [CONTACT W/AND (SUSP) EXPOS COVID-19] Onset: 04-02-2022 Procedures Date Procedure Procedure Detail Performing Clinician Start: 10-11-2018 Colonoscopy John núñez INFORMATION SECURITY DIRECTOR-MAILING JOGGER Work Phone: Results Test Name Value Interpretation Reference Range [...] by: EDDIE OROSCO Date: 2022-12-24 16:25 Normal [facility] MG MAMM SCREEN 3D DALE CADon 10-20-2022 MG MAMM SCREEN 3D DALE CAD Patient: DEEPA SEARSJose Exam Date: 10/20/2022 : 1960 Gender:F Ordering : DR REAL KIMBALL . Admission #: [id number] Family : Order #: [id number] CLICK HERE TO VIEW EXAM RADIOLOGY REPORT [...] breast cancer at age 70. LOCATION: [facility] BREAST COMPOSITION: Heterogeneously dense,which may [...] MD on 10/20/2022 at 12:00 Normal [facility] Covid-19 PCR (CVDTBH)on SARS-CoV-2 (COVID-19) RNA EMMANUEL+probe Ql (Unsp spec) Not detected Normal NOT DETECTED [facility] Comment on above: Result Comment: [...] for this test is supported by the [place] Staff Member of Health and Human Service's declaration that [...] used). Performed By: #### C VDTBH #### [facility] [address] [place] [address] Dr. Cindi Iniguez INFLUENZA A AND B AGon 10-08 [facility] SEE BELOW Normal [facility] Comment on above: Result Comment: Nega tive for Flu A protein angiten. Infection due to Flu A cannot be ruled out. Flu A angiten in the sample may be below the detection limit of the test. Performed By: #### C MP, BNP, HSTROPN #### [facility] [address] [place] [address] Dr. Cindi Iniguez INFLUBNEG SEE BELOW Normal [facility] Comment on above: Result Comment: Nega tive for Flu B protein antigen. Infection due to Flu B cannot be ruled out. Flu B antigen in the sample may be below the detection limit of the test. Performed By: #### C MP, BNP, HSTROPN #### [facility] [address] [place] [address] Dr. Cindi Iniguez INFLUENZA A AG Negative Normal NEGATIVE SEE COMMENT [facility] Comment on above: Performed By: #### C MP, BNP, HSTROPN #### [facility] [address] [place] [address] Dr. Cindi Iniguez INFLUENZA B AG Negative Normal NEGATIVE SEE COMMENT [facility] Comment on above: Performed By: #### C MP, BNP, HSTROPN #### [facility] [address] [place] [address] Dr. Cindi Iniguez Covid-19 PCR ([facility])on 07-09 SARS-CoV-2 (COVID-19) RNA EMMANUEL+probe Ql (Unsp spec) Not detected Normal NOT DETECTED [facility] Comment on above: Result Comment: [...] for this test is supported by the [place] of Health and Human Service's declaration that [...] used). Performed By: #### C VDTBH #### [facility] [address] [place] [address] Dr. Cindi Iniguez BNPon 04-14-2022 Natriuretic peptide B (Bld) [Mass/Vol] 583.0 pg/mL Normal <=900.0 [facility] Comment on above: Performed By: #### C MP, BNP, HSTROPN #### [facility] [address] [place] [address] Dr. Cindi Iniguez CBC AUTO DIFFon 04-14-2022 BASO # 0.0 103/ul Normal 0.0-0.1 [facility] Comment on above: Performed By: #### C BC #### [facility] [address] [place] [address] Dr. Cindi Iniguez Basophils/100 WBC (Bld) 0.2 % Normal 0.2-2.0 [facility] Comment on above: Performed By: #### C BC #### [facility] [address] [place] [address] Dr. Cindi Iniguez EO # 0.0 103/ul Normal 0.0-0.7 [facility] Comment on above: Performed By: #### C BC #### [facility] [address] [place] [address] Dr. Cindi Iniguez Eosinophils/100 WBC (Bld) 0.3 % Critically low 0.9-7.0 [facility] Comment on above: Performed By: #### C BC #### [facility] [address] [place] [address] Dr. Cindi Iniguez Erythrocyte distribution width (RBC) [Ratio] 12.6 % Normal 11.0-15.0 [facility] Comment on above: Performed By: #### C BC #### [facility] [address] [place] [address] Dr. Cindi Iniguez Hematocrit (Bld) [Volume fraction] 43.3 % Normal 36.0-48.0 [facility] Comment on above: Performed By: #### C BC #### [facility] [address] [place] [address] Dr. Cindi Iniguez Hemoglobin (Bld) [Mass/Vol] 14.5 g/dL Normal 12.0-16.0 [facility] Comment on above: Performed By: #### C BC #### [facility] [address] [place] [address] Dr. Cindi Iniguez IG # 0.07 10e3/ul Critically high 0.00-0.03 [facility] Comment on above: Performed By: #### C BC #### [facility] [address] [place] [address] Dr. Cindi Iniguez IG % 0.5 % Normal 0.0-0.5 [facility] Comment on above: Performed By: #### C BC #### [facility] [address] [place] [address] Dr. Cindi Iniguez LYMPH # 1.8 103/ul Normal 1.2-3.8 [facility] Comment on above: Performed By: #### C BC #### [facility] [address] [place] [address] Dr. Cindi Iniguez Lymphocytes/100 WBC (Bld) 12.9 % Critically low 20.5-60.0 [facility] Comment on above: Performed By: #### C BC #### [facility] [address] [place] [address] Dr. Cindi Iniguez MANUAL DIFF REQ NO Normal [facility] Comment on above: Performed By: #### C BC #### [facility] [address] [place] [address] Dr. Cindi Iniguez MCH (RBC) [Entitic mass] 30.5 pg Normal 26.7-34.0 [facility] Comment on above: Performed By: #### C BC #### [facility] [address] [address] [address] Cindi Iniguez MCHC (RBC) [Mass/Vol] 33.5 g/dL Normal 29.9-35.2 [facility] Comment on above: Performed By: #### C BC #### [facility] [address] [address] [address] Cindi Iniguez MCV (RBC) [Entitic vol] 91.0 fL Normal 81.0-99.0 [facility] Comment on above: Performed By: #### C BC #### [facility] [address] [place] [address] Dr. Cindi Iniguez MONO # 1.0 103/ul Critically high 0.3-0.8 [facility] Comment on above: Performed By: #### C BC #### [facility] [address] [place] [address] Dr. Cindi Iniguez Monocytes/100 WBC (Bld) 7.1 % Normal 1.7-12.0 [facility] Comment on above: Performed By: #### C BC #### [facility] [address] [place] [address] Dr. Cindi Iniguez NEUT # 10.9 103/ul Critically high 1.4-6.5 [facility] Comment on above: Performed By: #### C BC #### [facility] [address] [place] [address] Dr. Cindi Iniguez Neutrophils/100 WBC (Bld) 79.0 % Critically high 43.0-75.0 [facility] Comment on above: Performed By: #### C BC #### [facility] [address] [place] [address] Dr. Cindi Iniguez Platelet mean volume (Bld) [Entitic vol] 8.8 fL Critically low 9.5-13.5 [facility] Comment on above: Performed By: #### C BC #### [facility] [address] [address] [address] Cindi Iniguez PLT 207 103/ul Normal 150-450 [facility] Comment on above: Performed By: #### C BC #### [facility] [address] [address] [address] Cindi Iniguez RBC 4.76 106/ul Normal 4.20-5.40 [facility] Comment on above: Performed By: #### C BC #### [facility] [address] [address] [address] Cindi Iniguez WBC 13.8 103/ul Critically high 4.0-11.0 [facility] Comment on above: Performed By: #### C BC #### [facility] [address] [address] [address] Cindi Iniguez CTA CHEST WO W [...] HERNÁN BAR Date: 2022-04-14 16:28 Normal [facility] PROF 14(COMP METB)on Albumin [Mass/Vol] 3.5 g/dL Normal 3.4-5.0 [facility] Comment on above: Performed By: #### C MP, BNP, HSTROPN #### [facility] [address] [address] [address] Cindi Iniguez Albumin/Globulin [Mass ratio] 1.0 {ratio} Normal [facility] Comment on above: Performed By: #### C MP, BNP, HSTROPN #### [facility] [address] [place] [address] Dr. Cindi Iniguez ALP [Catalytic activity/Vol] 64 U/L Normal 46-116 [facility] Comment on above: Performed By: #### C MP, BNP, HSTROPN #### [facility] [address] [place] [address] Dr. Cindi Iniguez ALT [Catalytic activity/Vol] 44 U/L Normal 14-59 [facility] Comment on above: Performed By: #### C MP, BNP, HSTROPN #### [facility] [address] [place] [address] Dr. Cindi Iniugez Anion gap [Moles/Vol] 12.5 mmol/L Normal [facility] Comment on above: Performed By: #### C MP, BNP, HSTROPN #### [facility] [address] [place] [address] Dr. Cindi Iniguez AST [Catalytic activity/Vol] 21 U/L Normal 15-37 [facility] Comment on above: Performed By: #### C MP, BNP, HSTROPN #### [facility] [address] [place] [address] Dr. Cindi Iniguez Bilirubin [Mass/Vol] 0.3 mg/dL Normal 0.2-1.0 [facility] Comment on above: Performed By: #### C MP, BNP, HSTROPN #### [facility] [address] [place] [address] Dr. Cindi Iniguez Calcium [Mass/Vol] 9.1 mg/dL Normal 8.5-10.1 [facility] Comment on above: Performed By: #### C MP, BNP, HSTROPN #### [facility] [address] [place] [address] Dr. Cindi Iniguez Chloride [Moles/Vol] 97 mmol/L Critically low 98-107 [facility] Comment on above: Performed By: #### C MP, BNP, HSTROPN #### [facility] [address] [address] [address] Cindi Iniguez CO2 [Moles/Vol] 29.8 mmol/L Normal 21.0-32.0 [facility] Comment on above: Performed By: #### C MP, BNP, HSTROPN #### [facility] [address] [address] [address] Cindi Iniguez Creatinine [Mass/Vol] 1.06 mg/dL Critically high 0.55-1.02 [facility] Comment on above: Performed By: #### C MP, BNP, HSTROPN #### [facility] [address] [place] [address] Dr. Cindi Iniguez EGFR-AF [place] >60 Normal >=60 [facility] Comment on above: Performed By: #### C MP, BNP, HSTROPN #### [facility] [address] [place] [address] Dr. Cindi Iniguez EGFR-NON AF [place] 53 mL/min/1.73m2 Critically low >=60 [facility] Comment on above: Performed By: #### C MP, BNP, HSTROPN #### [facility] [address] [place] [address] Dr. Cindi Iniguez Globulin (S) [Mass/Vol] 3.6 g/dL Normal [facility] Comment on above: Performed By: #### C MP, BNP, HSTROPN #### [facility] [address] [place] [address] Dr. Cindi Iniguez Glucose [Mass/Vol] 109 mg/dL Critically high 74-106 [facility] Comment on above: Performed By: #### C MP, BNP, HSTROPN #### [facility] [address] [address] [address] Cindi Iniguez Potassium [Moles/Vol] 4.3 mmol/L Normal 3.5-5.1 [facility] Comment on above: Performed By: #### C MP, BNP, HSTROPN #### [facility] [address] [place] [address] Dr. Cindi Iniguez Protein [Mass/Vol] 7.1 g/dL Normal 6.4-8.2 [facility] Comment on above: Performed By: #### C MP, BNP, HSTROPN #### [facility] [address] [place] [address] Dr. Cindi Iniguez Sodium [Moles/Vol] 135 mmol/L Critically low 136-145 [facility] e [facility] Comment on above: Performed By: #### C MP, BNP, HSTROPN #### [facility] [address] [place] [address] Dr. Cindi Iniguez Urea nitrogen [Mass/Vol] 17.0 mg/dL Normal 7.0-18.0 [facility] Comment on above: Performed By: #### C MP, BNP, HSTROPN #### [facility] [address] [place] [address] Dr. Cindi Iniguez Urea nitrogen/Creatinine [Mass ratio] 16.0 mg/mg Normal [facility] Comment on above: Performed By: #### C MP, BNP, HSTROPN #### [facility] [address] [place] [address] Dr. Cindi Iniguez PROTIMEon 04-14-2022 INR Coag (PPP) [Relative time] 0.93 {INR} Normal [facility] Comment on above: Performed By: #### P TT, PT #### [facility] [address] [place] [address] Dr. Cindi Iniguez INR GUIDELINES SEE BELOW Normal [facility] Comment on above: Result Comment: MESSI RED INR: 2.0 - 3.0 CONDITIONS NOT LISTED BELOW 2.5 - 3.5 FOR PROSTHETIC HEART VALVE REPLACEMENT 2.5 - 3.5 RECURRENT THROMBOSIS Performed By: #### P TT, PT #### [facility] [address] [place] [address] Dr. Cindi Iniguez PT Coag (PPP) [Time] 10.1 s Normal 9.0-11.6 [facility] Comment on above: Performed By: #### P TT, PT #### [facility] [address] [place] [address] Dr. Cindi Iniguez PTTon 04-14-2022 aPTT Coag (Bld) [Time] 23.8 s Normal 22.3-36.2 [facility] Comment on above: Performed By: #### C MP, BNP, HSTROPN #### [facility] [address] [address] [address] Cindi Iniguez TROPONIN, HIGH SENSITIVITYon 04-14-2022 HSTROP 27.4 pg/mL Normal 4.0-51.3 [facility] Comment on above: Result Comment: CUT- OFF POINTS HAVE BEEN ESTABLISHED BASED ON THE FOURTH UNIVERSAL DEFINITIONS OF MYOCARDIAL INFARCTION. THE UPPER REFERENCE LIMIT (URL) OF TROPONIN, DEFINED THE 99TH PERCENTILE OF cTnI DISTRIBUTION IN A REFERENCE POPULATION, HAS BEEN CONFIRMED THE DECISION THRESHOLD FOR MO DIAGNOSIS. Performed By: #### C MP, BNP, HSTROPN #### [facility] [address] [address] [address] Cindi Iniguez Covid-19 PCR (CVDTB)on 03-08 SARS-CoV-2 (COVID-19) RNA EMMANUEL+probe Ql (Unsp spec) Detected Critically abnormal NOT DETECTED [facility] Comment on above: Result Comment: This test is not yet approved or cleared by the [place] FDA. When there are no FDA-approved or cleared tests available, and other criteria are met, FDA can make tests available under an emergency access mechanism called an Emergency Use Authorization (EUA). The EUA for this test is supported by the [place] of Health and Human Service's (HHS's) declaration [...] By: #### C MP, BNP, HSTROPN #### [facility] [address] [address] [address] Cindi Iniguez Social History Date Type Detail Facility Start: 10-22-2023 Alcohol intake Current drinke r of alcohol (finding) [facility] Start: 12-31-2022 Tobacco smoking stat [facility] Ex-smoker [facility] Start: 12-31-2022 Tobacco use and exposure Smoke less tobacco non-user [facility] Start: 10-18-2020 End: 12-30-2021 History of Social function [facility] Work Phone: Start: 10-18-2020 End: 12-30-2021 Alcohol Use Disorder Identification Test - Consumption [AUDIT-C] [facility] Work Phone: Start: 09-28-2018 Alcohol Comment social [facility] Start: 1960 Sex Assigned At Not on file P [facility] End: 08-28-1998 History of tobacco use Current smoker [facility] End: 08-28-1998 History of tobacco use Cigarette Smoker [facility] How often to you hav e a drink containing alcohol? Monthly or less [facility] Work Phone: How many standard dr inks containing alcohol do you have on a typical day? 5 or 6 [facility] How often do you hav e 6 or more drinks on 1 occasion? Less than monthly [facility] Childcare Unknown [facility] Vital Signs Date Time Vital Sign Value Performing Clinician Faci lity 10-22-2023 15:23-0500 Body mass index (BMI) [Ratio] 36.39 kg/m2 John Pineda [facility] Work Phone: [facility] 10-22-2023 15:23-0500 Body weight 96.16 kg John Pineda [facility] Work Phone: [facility] History of Present illness Narrative 10-22-2023 INGRIS SmithMAILING JOGGER - 10/22/2023 3:30 PM EST Note Date [...] 10/11/2018 Performed by Nubia Nogueira DO at [facility] ESOPHAGOGASTRODUODENOSCOPY N/A 07/04/2021 Performed by Nubia Nogueira DO at [facility] HYSTERECTOMY 2008 OOPHORECTOMY Allergies Allergen Reactions Penicillins [...] mouth daily., Disp: , Rfl: peg 3350-sod sulf,rlkr-dpv-nrf 178.7-7.3-0.5 gram recon soln, Take 1 kit [...] patient/family/caregiver Referring and communicating with other health medicare compliance auditor Family history of malignant neoplasm of colon [Z80.0] BETTY SMITH [facility] General [facility] [place] This note was created with the assistance of a speech recognition program. While intending to generate a timely document that accurately reflects the content of the visit, no guarantee can be provided that every grammatical or spelling mistake has been or will be identified or corrected. Thank you for your understanding. BETTY Smith 10/22/23 1550 documented in this encounter [facility] Evaluation note Note Date & Type Note Facility Evaluation note Diagnosis Family history of malignant neoplasm of colon- Primary Family history of colon cancer Family history of malignant neoplasm of gastrointestinal tract documented in this encounter [facility] Instructions Note Date & Type Note Facility Instructions Not on filedocumented in this en counter [facility] Summary Purpose Family History No Family History Records FoundNo Family History Records FoundNo Family History Records Found Advance Directives No Advanced Directives Records FoundNo Advanced Directives Records FoundNo Advanced Directives Records Found Additional Source Comments INFORMATION SOURCE (unrecogn ized section and content) DATE CREATED AUTHOR 12/28/2022 [facility] DATE CREATED AUTHOR AUTHOR'S ORGANIZ ATION 10/28/2023 [facility] DATE CREATED AUTHOR AUTHOR'S ORGANIZ ATION 11/07/2023 [facility] Reason for Visit (unrecogniz ed section and content) Reason Comments Colon Cancer Screening 5 year recall, sam finley history of colon cancer Care Teams (unrecognized sec tion and content) Boom Stick Man Relationship Specialty Start Date End Date Real Kimball MD [address] [place] [address] PCP - General Family Medicine 09/22/18 FOR [...] BE BASED ON THE PRIMARY CLINICAL RECORDS. [facility]. provides no warranty or guarantee of the accuracy or completeness of information in this document.
[2024-02-19 15:51] LABS: C. Difficile PCR POSITIVE (NEGATIVE)
== END 2024-02-18 19:26 | disposition home or self-care (01) ==
LOC: LAB 19:25
PROVIDERS: PCP Family Medicine; Visit Provider Family Medicine
DX: R10.11 Right upper quadrant pain (principal)
CPT/HCPCS: 87045; 87046; 87427; 87493

== ENCOUNTER 2024-02-19 06:29 | Day surgery (SDC) | payer OTHER, SELFPAY ==
--- OUTSIDE RECORDS SUMMARY | 2024-02-19 06:33 | XMS_ITS | CCD ---
Author Organization [facility] Care Team Providers Care Hatch Supervisor Name Role Phone AVERY MCKNIGHT Attending Unavailable [...] HOY ., DR NOBLE Primary Care Unavailable [place], DR CALLY Aguila Consulting Unavailable HOY ., DR NOBLE Consulting Unavailable HOY ., DR NOBLE Attending Unavailable HOY ., DR NOBLE Admyordan Unavailable HOY ., DR NOBLE Primary Care Unavailable CASANDRA ALLEN Attending Unavailable CASANDRA ALLEN Admitting Unavailable BRIANY ., DR NOBLE Primary Care Unavailable CASANDRA ALLEN Consulting Unavailable Real Kimball MD Primary Care Provider [phone] JOHN PINEDA Attending Unavailable CHONG KIMBALLLAS [...] Facility (1 source) Penicillin Drug Allergy [facility] Repository (1 source) Sulfonamides (Antibiotic) Drug allergy (disorder) [facility] (3 sources) Penicillins; Translations: [PENICILLINS] Propensity to adverse reactions to drug 1 [facility] (3 sources) sulfabenzamide; Translations: [SULFABENZAMIDE] Drug Allergy 9 [facility] (3 sources) Sulfonamides (Antibiotic); Translations: [SULFA (SULFONAMIDE ANTIBIOTICS)] Propensity to adverse reactions to drug 4 [facility] Medications Current Medications Medication Drug Class(es) Dates Sig (Normalized) Sig (Original) lactobacillus acidophilus [id number] unt / pectin 100 mg oral tablet [...] and at bedtime. 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 Admission #: [id number] Family : Order #: [id number] CLICK HERE TO VIEW EXAM RADIOLOGY REPORT [...] breast cancer at age 70. LOCATION: [facility] BREAST COMPOSITION: Heterogeneously dense,which may [...] MD on 10/20/2022 at 12:00 Normal [facility] Covid-19 PCR (CVDTB)on SARS-CoV-2 (COVID-19) RNA EMMANUEL+probe Ql (Unsp spec) Not detected Normal NOT DETECTED [facility] Comment on above: Result Comment: [...] for this test is supported by the [place] of Health and Human Service's declaration that [...] used). Performed By: #### C VDTBH #### [facility] [address] [place] [address] Dr. Cindi Iniguez INFLUENZA A AND B AGon 10-08 [facility] SEE BELOW Normal [facility] Comment on above: Result Comment: Nega tive for Flu A protein angiten. Infection due to Flu A cannot be ruled out. Flu A angiten in the sample may be below the detection limit of the test. Performed By: #### C MP, BNP, HSTROPN #### [facility] [address] [place] [address] Dr. Cindi Iniguez INFLUBNEGH SEE BELOW Normal [facility] Comment on above: Result Comment: Nega tive for Flu B protein antigen. Infection due to Flu B cannot be ruled out. Flu B antigen in the sample may be below the detection limit of the test. Performed By: #### C MP, BNP, HSTROPN #### [facility] [address] [address] [address] Cindi Iniguez INFLUENZA A AG Negative Normal NEGATIVE SEE COMMENT [facility] Comment on above: Performed By: #### C MP, BNP, HSTROPN #### [facility] [address] [place] [address] Dr. Cindi Iniguez INFLUENZA B AG Negative Normal NEGATIVE SEE COMMENT [facility] Comment on above: Performed By: #### C MP, BNP, HSTROPN #### [facility] [address] [place] [address] Dr. Cindi Iniguez [facility]09 SARS-CoV-2 (COVID-19) RNA EMMANUEL+probe Ql (Unsp spec) Not detected Normal NOT DETECTED [facility] Comment on above: Result Comment: [...] for this test is supported by the [place] of Health and Human Service's declaration that [...] used). Performed By: #### C VDTBH #### [facility] [address] [place] [address] Dr. Cindi Iniguez BNPon 04-14-2022 Natriuretic peptide B (Bld) [Mass/Vol] 583.0 pg/mL Normal <=900.0 [facility] Comment on above: Performed By: #### C MP, BNP, HSTROPN #### [facility] [address] [place] [address] Dr. Cindi Iniguez CBC AUTO DIFFon 04-14-2022 BASO # 0.0 103/ul Normal 0.0-0.1 [facility] Comment on above: Performed By: #### C BC #### [facility] [address] [place] [address] Dr. Cindi Iniguez Basophils/100 WBC (Bld) 0.2 % Normal 0.2-2.0 [facility] Comment on above: Performed By: #### C BC #### [facility] [address] [place] [address] Dr. Cindi Iniguez EO # 0.0 103/ul Normal 0.0-0.7 [facility] Comment on above: Performed By: #### C BC #### [facility] [address] [place] [address] Dr. Cindi Iniguez Eosinophils/100 WBC (Bld) 0.3 % Critically low 0.9-7.0 [facility] Comment on above: Performed By: #### C BC #### [facility] [address] [place] [address] Dr. Cindi Iniguez Erythrocyte distribution width (RBC) [Ratio] 12.6 % Normal 11.0-15.0 [facility] Comment on above: Performed By: #### C BC #### [facility] [address] [place] [address] Dr. Cindi Iniguez Hematocrit (Bld) [Volume fraction] 43.3 % Normal 36.0-48.0 [facility] Comment on above: Performed By: #### C BC #### [facility] [address] [place] [address] Dr. Cindi Iniguez Hemoglobin (Bld) [Mass/Vol] 14.5 g/dL Normal 12.0-16.0 [facility] Comment on above: Performed By: #### C BC #### [facility] [address] [place] [address] Dr. Cindi Iniguez IG # 0.07 10e3/ul Critically high 0.00-0.03 [facility] Comment on above: Performed By: #### C BC #### [facility] [address] [place] [address] Dr. Cindi Iniguez IG % 0.5 % Normal 0.0-0.5 [facility] Comment on above: Performed By: #### C BC #### [facility] [address] [place] [address] Dr. Cindi Iniguez LYMPH # 1.8 103/ul Normal 1.2-3.8 [facility] Comment on above: Performed By: #### C BC #### [facility] [address] [place] [address] Dr. Cindi Iniguez Lymphocytes/100 WBC (Bld) 12.9 % Critically low 20.5-60.0 [facility] Comment on above: Performed By: #### C BC #### [facility] [address] [place] [address] Dr. Cindi Iniguez MANUAL DIFF REQ NO Normal [facility] Comment on above: Performed By: #### C BC #### [facility] [address] [place] [address] Dr. Cindi Iniguez MCH (RBC) [Entitic mass] 30.5 pg Normal 26.7-34.0 [facility] Comment on above: Performed By: #### C BC #### [facility] [address] [address] [address] Cindi Iniguez MCHC (RBC) [Mass/Vol] 33.5 g/dL Normal 29.9-35.2 [facility] Comment on above: Performed By: #### C BC #### [facility] [address] [address] [address] Cindi Iniguez MCV (RBC) [Entitic vol] 91.0 fL Normal 81.0-99.0 [facility] Comment on above: Performed By: #### C BC #### [facility] [address] [address] [address] Cindi Iniguez MONO # 1.0 103/ul Critically high 0.3-0.8 [facility] Comment on above: Performed By: #### C BC #### [facility] [address] [place] [address] Dr. Cindi Iniguez Monocytes/100 WBC (Bld) 7.1 % Normal 1.7-12.0 [facility] Comment on above: Performed By: #### C BC #### [facility] [address] [address] [address] Cindi Iniguez NEUT # 10.9 103/ul Critically high 1.4-6.5 [facility] Comment on above: Performed By: #### C BC #### [facility] [address] [address] [address] Cindi Iniguez Neutrophils/100 WBC (Bld) 79.0 % Critically high 43.0-75.0 [facility] Comment on above: Performed By: #### C BC #### [facility] [address] [address] [address] Cindi Iniguez Platelet mean volume (Bld) [Entitic vol] 8.8 fL Critically low 9.5-13.5 [facility] Comment on above: Performed By: #### C BC #### [facility] [address] [address] [address] Cindi Iniguez PLT 207 103/ul Normal 150-450 [facility] Comment on above: Performed By: #### C BC #### [facility] [address] [address] [address] Cindi Iniguez RBC 4.76 106/ul Normal 4.20-5.40 [facility] Comment on above: Performed By: #### C BC #### [facility] [address] [address] [address] Cindi Iniguez WBC 13.8 103/ul Critically high 4.0-11.0 [facility] Comment on above: Performed By: #### C BC #### [facility] [address] [address] [address] Cindi Iniguez CTA CHEST WO W [...] HERNÁN BAR Date: 2022-04-14 16:28 Normal [facility] PROF 14(COMP METB)on Albumin [Mass/Vol] 3.5 g/dL Normal 3.4-5.0 [facility] Comment on above: Performed By: #### C MP, BNP, HSTROPN #### [facility] [address] [address] [address] Cindi Iniguez Albumin/Globulin [Mass ratio] 1.0 {ratio} Normal [facility] Comment on above: Performed By: #### C MP, BNP, HSTROPN #### [facility] [address] [place] [address] Dr. Cindi Iniguez ALP [Catalytic activity/Vol] 64 U/L Normal 46-116 [facility] Comment on above: Performed By: #### C MP, BNP, HSTROPN #### [facility] [address] [place] [address] Dr. Cindi Iniguez ALT [Catalytic activity/Vol] 44 U/L Normal 14-59 [facility] Comment on above: Performed By: #### C MP, BNP, HSTROPN #### [facility] [address] [place] [address] Dr. Cindi Iniguez Anion gap [Moles/Vol] 12.5 mmol/L Normal [facility] Comment on above: Performed By: #### C MP, BNP, HSTROPN #### [facility] [address] [place] [address] Dr. Cindi Iniguez AST [Catalytic activity/Vol] 21 U/L Normal 15-37 [facility] Comment on above: Performed By: #### C MP, BNP, HSTROPN #### [facility] [address] [place] [address] Dr. Cindi Iniguez Bilirubin [Mass/Vol] 0.3 mg/dL Normal 0.2-1.0 [facility] Comment on above: Performed By: #### C MP, BNP, HSTROPN #### [facility] [address] [place] [address] Dr. Cindi Iniguez Calcium [Mass/Vol] 9.1 mg/dL Normal 8.5-10.1 [facility] Comment on above: Performed By: #### C MP, BNP, HSTROPN #### [facility] [address] [place] [address] Dr. Cindi Iniguez Chloride [Moles/Vol] 97 mmol/L Critically low 98-107 [facility] Comment on above: Performed By: #### C MP, BNP, HSTROPN #### [facility] [address] [address] [address] Cindi Iniguez CO2 [Moles/Vol] 29.8 mmol/L Normal 21.0-32.0 [facility] Comment on above: Performed By: #### C MP, BNP, HSTROPN #### [facility] [address] [place] [address] Dr. Cindi Iniguez Creatinine [Mass/Vol] 1.06 mg/dL Critically high 0.55-1.02 [facility] Comment on above: Performed By: #### C MP, BNP, HSTROPN #### [facility] [address] [place] [address] Dr. Cindi Iniguez EGFR-AF SAO TOMEAN >60 Normal >=60 [facility] Comment on above: Performed By: #### C MP, BNP, HSTROPN #### [facility] [address] [place] [address] Dr. Cindi Iniguez EGFR-NON AF SAO TOMEAN 53 mL/min/1.73m2 Critically low >=60 [facility] Comment on above: Performed By: #### C MP, BNP, HSTROPN #### [facility] [address] [place] [address] Dr. Cindi Iniguez Globulin (S) [Mass/Vol] 3.6 g/dL Normal [facility] Comment on above: Performed By: #### C MP, BNP, HSTROPN #### [facility] [address] [place] [address] Dr. Cindi Iniguez Glucose [Mass/Vol] 109 mg/dL Critically high 74-106 [facility] Comment on above: Performed By: #### C MP, BNP, HSTROPN #### [facility] [address] [place] [address] Dr. Cindi Iniguez Potassium [Moles/Vol] 4.3 mmol/L Normal 3.5-5.1 [facility] Comment on above: Performed By: #### C MP, BNP, HSTROPN #### [facility] [address] [place] [address] Dr. Cindi Iniguez Protein [Mass/Vol] 7.1 g/dL Normal 6.4-8.2 [facility] Comment on above: Performed By: #### C MP, BNP, HSTROPN #### [facility] [address] [place] [address] Dr. Cindi Iniguez Sodium [Moles/Vol] 135 mmol/L Critically low 136-145 [facility] Comment on above: Performed By: #### C MP, BNP, HSTROPN #### [facility] [address] [place] [address] Dr. Cindi Iniguez Urea nitrogen [Mass/Vol] 17.0 mg/dL Normal 7.0-18.0 [facility] Comment on above: Performed By: #### C MP, BNP, HSTROPN #### [facility] [address] [place] [address] Dr. Cindi Iniguez Urea nitrogen/Creatinine [Mass ratio] 16.0 mg/mg Normal [facility] Comment on above: Performed By: #### C MP, BNP, HSTROPN #### [facility] [address] [place] [address] Dr. Cindi Iniguez PROTIMEon 04-14-2022 INR Coag (PPP) [Relative time] 0.93 {INR} Normal [facility] Comment on above: Performed By: #### P TT, PT #### [facility] [address] [place] [address] Dr. Cindi Iniguez INR GUIDELINES SEE BELOW Normal [facility] Comment on above: Result Comment: MESSI RED INR: 2.0 - 3.0 CONDITIONS NOT LISTED BELOW 2.5 - 3.5 FOR PROSTHETIC HEART VALVE REPLACEMENT 2.5 - 3.5 RECURRENT THROMBOSIS Performed By: #### P TT, PT #### [facility] [address] [place] [address] Dr. Cindi Iniguez PT Coag (PPP) [Time] 10.1 s Normal 9.0-11.6 [facility] Comment on above: Performed By: #### P TT, PT #### [facility] [address] [place] [address] Dr. Cindi Iniguez PTTon 04-14-2022 aPTT Coag (Bld) [Time] 23.8 s Normal 22.3-36.2 [facility] Comment on above: Performed By: #### C MP, BNP, HSTROPN #### [facility] [address] [address] [address] Cindi Iniguez TROPONIN, HIGH SENSITIVITYon 04-14-2022 HSTROP 27.4 pg/mL Normal 4.0-51.3 [facility] Comment on above: Result Comment: CUT- OFF POINTS HAVE BEEN ESTABLISHED BASED ON THE FOURTH UNIVERSAL DEFINITIONS OF MYOCARDIAL INFARCTION. THE UPPER REFERENCE LIMIT (URL) OF TROPONIN, DEFINED THE 99TH PERCENTILE OF cTnI DISTRIBUTION IN A REFERENCE POPULATION, HAS BEEN CONFIRMED THE DECISION THRESHOLD FOR MA DIAGNOSIS. Performed By: #### C MP, BNP, HSTROPN #### [facility] [address] [place] [address] Dr. Cindi Iniguez [facility]-08 SARS-CoV-2 (COVID-19) RNA EMMANUEL+probe Ql (Unsp spec) Detected Critically abnormal NOT DETECTED [facility] Comment on above: Result Comment: This test is not yet approved or cleared by the [place] FDA. When there are no FDA-approved or cleared tests available, and other criteria are met, FDA can make tests available under an emergency access mechanism called an Emergency Use Authorization (EUA). The EUA for this test is supported by the [place] of Health and Human Service's (HHS's) declaration [...] By: #### C MP, BNP, HSTROPN #### [facility] [address] [place] [address] Dr. Cindi Iniguez Vital Signs Date Time Vital Sign Value Performing Clinician Faci lity 10-22-2023 15:23-0500 Body mass index (BMI) [Ratio] 36.39 kg/m2 John Pineda [employer]ING [employer]OR SERVICE WORKER-[employer] Work Phone: [facility] 10-22-2023 15:23-0500 Body weight 96.16 kg John Pineda [employer]ING [employer]OR SERVICE WORKER[employer] Work Phone: [facility] Encounters Encounter Date Encounter Type Care Provider Facility Start: 11-06-2023 End: 11-06-2023 Evaluation and management of inpatient CALLY ARREAGA [facility] Start: 11-05-2023 End: 11-06-2023 Evaluation and management of inpatient NUBIA NOGUEIRA [facility] Start: 10-22-2023 ambulatory [facility] Jennifer PINEDA [facility] Start: 10-22-2023 End: 10-22-2023 Office outpatient new 30 minutes John Rodriguez Ross [employer]ING [employer]LOOR SERVICE WORKER[employer] Work Phone: [facility] Comment on above: [...] Clinician Start: 10-11-2018 Colonoscopy John Caitlin núñez [employer] SERVICE WORKER[employer] Work Phone: Plan of Treatment Date Care Activity Detail Author Start: 10-22-2024 Adult BMI Screening Adult BMI Screen ing [facility] Start: 10-22-2024 Tobacco Screening Tobacco Screening [facility] Start: 11-05-2023 End: 11-05-2023 Admission to same day surgery center 11/05/2023 11:00 AM EST - 11/05/2023 11:30 AM EST Surgery [facility] [address] [place] [address] Nubia Nogueira, DO [address] [place], [place] [id number] COLONOSCOPY DIAGNOSTIC / SCREENING [71659 (CPT )] [facility] Comment on above: COLONOSCOPY DIAGNOST IC / SCREENING [98454 (CPT )] Start: 11-05-2023 End: 11-05-2023 Colonoscopy flx dx w/collj spec when pfrmd COLONOSCOPY DIAGNOSTIC / SCREENING Family history of colon cancer 11/05/2023 11:00 AM [facility] Start: 11-05-2023 Subsequent hospital visit by physician 11/05/2023 11:00 AM EST Hospital Encounter [facility] [address] [place] [address] [phone] Nubia Nogueira, DO [address] [place], [place] [id number] [facility] Start: 10-29-2023 End: 10-29-2023 ambulatory 10/29/2023 2:10 PM EST Support Visit [facility] - Pre Admit [address] [place] [address] [facility] - Pre Admit Start: 10-11-2023 Screening for malign ant neoplasm of colon Colonoscopy [facility] Start: 2010 Administration of varicella zoster vaccine Zoster (Shingles) Vaccine (1 of 2) [facility] Start: 1979 DTaP,Tdap and Td Vac cines (1 - Tdap) DTaP,Tdap and Td Vaccines (1 - Tdap) [facility] Start: 1978 Adult BMI Follow Up Plan Adult BMI Follow Up Plan [facility] Start: 1972 [facility] End: 10-22-2024 Colonoscopy Colonoscopy GI Routine Family history of malignant neoplasm of colon 1 Occurrences starting 10/22/2023 until 10/22/2024 [employer] Work Phone: Comment on above: 1 Occurrences starti ng 10/22/2023 until 10/22/2024 Payers Date Payer Category Payer Private Health Insurance [facility] PLUS [id number] 2023-Present [phone] [address] [address] [place] [address] [id number] 1960 Unknown [id number] [id number]. 2.593 1960 Unknown [id number] 2.16.840.1.023544.3.579. 2.593 1960 Unknown [id number] 2.16.840.1.104033.3.579. 2.593 1960 Unknown [id number] 2.16.840.1.615837.3.579. 2.593 1960 Unknown [id number] 2.16.840.1.598591.3.579. 2.593 1960 Unknown [id number] 2.16.840.1.445214.3.579. 2.593 1960 Unknown [id number] 2.16.840.1.265523.3.579. 2.593 1960 Unknown [id number] 2.16.840.1.349135.3.579. 2.1286 1960 Unknown [id number] 2.16.840.1.643969.3.579. 2.1286 1960 Unknown [id number] 2.16.840.1.690661.3.579. 2.1286 1960 Unknown [id number] 2.16.840.1.918638.3.579. 2.1286 1960 Unknown [id number] 2.16.840.1.448112.3.579. 2.1286 1959 Private Health Insurance [id number] 1959 Self-pay [id number] Social History Date Type Detail Facility Start: 12-31-2022 Tobacco smoking stat [facility] Ex-smoker [facility] End: 08-28-1998 History of tobacco use Current smoker [facility] End: 08-28-1998 History of tobacco use Cigarette Smoker [facility] Start: 12-31-2022 Tobacco use and exposure Smoke less tobacco non-user [facility] Start: 10-22-2023 Alcohol intake Current drinke r of alcohol (finding) [facility] Start: 10-18-2020 End: 12-30-2021 History of Social function [facility] Work Phone: Start: 10-18-2020 End: 12-30-2021 Alcohol Use Disorder Identification Test - Consumption [AUDIT-C] [facility] Work Phone: How often to you hav e a drink containing alcohol? Monthly or less [facility] Work Phone: How many standard dr inks containing alcohol do you have on a typical day? 5 or 6 [facility] How often do you hav e 6 or more drinks on 1 occasion? Less than monthly [facility] Childcare Unknown [facility] Start: 09-28-[address] [facility] Start: 1960 Sex Assigned At Not on file P [facility] History of Present illness Narrative 10-22-2023 John Pineda, SRINIVASAN-21 DEALER - 10/22/2023 3:30 PM EST Note Date [...] 10/11/2018 Performed by Nubia Nogueira DO at [facility] ESOPHAGOGASTRODUODENOSCOPY N/A 07/04/2021 Performed by Nubia Nogueira DO at [facility] HYSTERECTOMY 2008 OOPHORECTOMY Allergies Allergen Reactions [...] mouth daily., Disp: , Rfl: peg 3350-sod sulf,egnk-nbo-gkt 178.7-7.3-0.5 gram recon soln, Take 1 kit [...] patient/family/caregiver Referring and communicating with other health health care social worker Family history of malignant neoplasm of colon [Z80.0] BETTY SMITH [facility] [place] This note was created with the assistance of a speech recognition program. While intending to generate a timely document that accurately reflects the content of the visit, no guarantee can be provided that every grammatical or spelling mistake has been or will be identified or corrected. Thank you for your understanding. BETTY Smith 10/22/23 1550 documented in this encounter [facility] Evaluation note Note Date & Type Note Facility Evaluation note Diagnosis Family history of malignant neoplasm of colon- Primary Family history of colon cancer Family history of malignant neoplasm of gastrointestinal tract documented in this encounter [facility] Instructions Note Date & Type Note Facility Instructions Not on filedocumented in this en counter [facility] Summary Purpose Family History No Family History Records FoundNo Family History Records FoundNo Family History Records Found Advance Directives No Advanced Directives Records FoundNo Advanced Directives Records FoundNo Advanced Directives Records Found Additional Source Comments INFORMATION SOURCE (unrecogn ized section and content) DATE CREATED AUTHOR 12/28/2022 [facility] DATE CREATED AUTHOR AUTHOR'S ORGANIZ ATION 10/28/2023 [facility] DATE CREATED AUTHOR AUTHOR'S ORGANIZ ATION 11/07/2023 [facility] Reason for Visit (unrecogniz ed section and content) Reason Comments Colon Cancer Screening 5 year recall, sam finley history of colon cancer Care Teams (unrecognized sec tion and content) Hatch Supervisor Relationship Specialty Start Date End Date Real Kimball MD [address] [place] [address] PCP - General Family Medicine 09/22/18 FOR [...] BE BASED ON THE PRIMARY CLINICAL RECORDS. [employer] [facility]. provides no warranty or guarantee of the accuracy or completeness of information in this document.
[2024-02-19 06:45] VITALS: BP 155/91; PULSE 65; TEMP 35.8; O2SAT 95; BMI 33.5
[2024-02-19] MEDS: LACTATED RINGER'S SOLUTION 1,000 ML 50 ML IV (07:16)
--- NOTE | 2024-02-19 08:19 | PM.GSCN ---
History of Present Illness Consult details Consult date: 02/19/24 Reason for consult: other (Nausea vomiting epigastric pain) Requesting physician: Tano Kimball Narrative: Mirlande Sears is a 63-year-old female with a past medical history of peptic ulcers, GERD, hypothyroidism, and rheumatoid arthritis presenting for hospitalization for daily nausea, vomiting, diarrhea, and abdominal pain. She says she has had vomiting following diarrhea daily in the morning and sometimes throughout the day that has persisted for a month. She says that epigastric and right flank pain will often accompany these symptoms. She says she will feel her bowel burning after vomiting. Her symptoms are especially bad after eating. She rates her pain as an 8 out of 10 when her symptoms occur. She admits to green coloring of her stool, a weight gain of 20 pounds over the winter with subsequent loss of 10 pounds over the last month, chronic lower extremity edema, shortness of breath, and hot flashes. She denies hematochezia, melena, hematemesis, lightheadedness, dizziness, or night sweats. She says she had a colonoscopy with me in October which was normal and an upper endoscopy with me a couple years ago which showed 2 gastric ulcers. I had placed her on medication at this time which relieved her symptoms, and her symptoms now feel similar to those she experienced previously. At her current hospitalization she has had an abdominal CT, and ultrasound of the right upper quadrant, and a HIDA scan which were all normal. She completed an outpatient stool test and is undergoing a subsequent repeat inpatient stool test. Her surgical history includes a total hysterectomy for uterine prolapse. She has no history of major hospitalizations, injuries, or trauma. She is allergic to sulfa containing drugs. Her diet is high in meat and fast food. She walks 3 times weekly and gets around 4000 steps per day at work. She denies any drug, alcohol, or tobacco use. Review of Systems ROS Status of ROS 10 or more systems reviewed and unremarkable except as noted in history and below [facility] Medical History Nausea and vomiting ?R11.2 - Nausea with vomiting, unspecified (ICD-10) Abdominal pain ?R10.9 - Unspecified abdominal pain (ICD-10) Biliary colic ?K80.50 - Calculus of bile duct without cholangitis or cholecystitis without obstruction (ICD-10) Nausea vomiting and diarrhea ?R11.2 - Nausea with vomiting, unspecified (ICD-10) ?R19.7 - Diarrhea, unspecified (ICD-10) Rheumatoid arthritis ?M06.9 - Rheumatoid arthritis, unspecified (ICD-10) Hypothyroid ?E03.9 - Hypothyroidism, unspecified (ICD-10) Surgical History H/O: hysterectomy ?Z90.710 - Acquired absence of both cervix and uterus (ICD-10) Family History Mother Family history of COPD (chronic obstructive pulmonary disease) Family history of cancer Family history of diabetes mellitus Social History Within the past year, how often did you have a drink containing alcohol: monthly or less Within the past year, how many standard drinks containing alcohol did you have on a typical day: 1 or 2 Within the past year, how often did you have six or more drinks on one occasion: never Total score: 0 Score interpretation: A score less than 3 is consistent with normal alcohol consumption. 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 Known occupational exposures/hazards: No Highest level of school completed/degree received: GED or equivalent Do you want help with school or training: No Are you now , , , , never or living with a partner: In a typical week, how many times do you talk on the telephone with family, friends, or neighbors: 3 or more times per week How often do you get together with friends or relatives: 3 or more times per week How often do you attend baptist or hindu services: 1-3 times per year Do you belong to any clubs or organizations such as baptist groups unions, fraternal or athletic groups, or school groups: no Total score: 2 Score interpretation: A score of greater than or equal to 2 indicates the lowest level of social isolation. Little interest or pleasure in doing things: not at all Feeling down, depressed, or hopeless: not at all Feel stressed/tense/nervous/anxious/difficulty sleeping: not at all Due to disability, difficulty making decisions: No Do you think of yourself as: straight/heterosexual Gender Identity: female Meds Home Medications and Allergies Home Medications ?Medication ?Instructions ?Recorded ?Confirmed ?Type hyoscyamine sulfate 0.125 mg 0.125 mg sublingual .COMPLEX 02/15/24 02/19/24 History sublingual tablet leflunomide 20 mg tablet 20 mg PO QDAY 02/15/24 02/19/24 History levothyroxine 150 mcg tablet 150 mcg PO QAM 02/15/24 02/19/24 History liothyronine 5 mcg tablet 5 mcg PO QAM 02/15/24 02/19/24 History pantoprazole 40 mg tablet,delayed 40 mg PO DAILY #30 tabs 02/18/24 02/19/24 Rx release (Protonix) sucralfate 1 gram tablet 1 g PO ACHS #60 tabs 02/18/24 02/19/24 Rx Allergies Allergy/AdvReac Type Severity Reaction Status Date / Time Sulfa (Sulfonamide Allergy Verified 02/16/24 06:11 Antibiotics) Exam Constitutional Vital Signs, click to edit/add: Last Vital Signs Temp 96.5 F L 02/19/24 06:45 Pulse 65 02/19/24 06:45 Resp 16 02/19/24 06:45 BP 155/91 H 02/19/24 06:45 Pulse Ox 95 02/19/24 06:45 O2 Del Method Room Air 02/19/24 06:45 Common normals: no apparent distress, oriented x3, alert and well nourished Respiratory Common normals: normal respiratory effort Effort & inspection: able to speak in complete sentences Auscultation: clear to auscultation bilaterally; no crackles, no rales, no rhonchi and no wheezes Cardio Common normals: regular rate and regular rhythm Heart sounds: no gallops, no murmurs and no rubs GI Common normals: soft to palpation and no masses Inspection: central obesity; no abdominal wall ecchymosis, no abdominal distension and no visible herniation Auscultation: normoactive bowel sounds Palpation: tender Details: epigastric; no hernia, no mass and no rebound tenderness present Extremity General: edema; no calf tenderness Neuro Common normals: oriented x3 Sensorium/orientation: alert Psych Other: Normal mood and affect. Results Labs Labs: All other labs normal. Imaging Abdomen CT scan report/results: report reviewed US - pelvic: report reviewed Assessment and Plan Assessment and Plan (1) Nausea and vomiting: (2) Abdominal pain: Plan 1. Nausea/vomiting 2. Epigastric pain Differential includes gastritis vs. peptic ulcer vs. GERD vs. leflunomide side effect. Complete upper endoscopy for rule out. Complete stool testing. If upper scope is negative, may progress to MRCP for further investigation.
[2024-02-19 08:52] VITALS: BP 131/60; PULSE 62; O2SAT 94
--- NOTE | 2024-02-19 08:53 | P.GSPRC_ITS ---
Date of procedure: 02/19/24 Indications for Procedure: Persistent nausea vomiting/epigastric pain Pre-op diagnosis: Persistent nausea vomiting/epigastric pain Post-op diagnosis: other (Superficial gastritis without hemorrhage/small hiatal hernia/esophagitis rule out Cool's) Procedure: EGD with biopsy antrum and distal esophagus Findings: As above Anesthesia: MAC Surgeon: Lee Quiles Procedure Summary: Patient was taken to the endoscopy suite placed in the left lateral recumbent position and given sedation by the felting machine operator helper. The Olympus ED scope was advanced under direct visualization into the posterior pharynx esophagus into the stomach through the pylorus into the first second third and fourth portions of the duodenum which were normal. There were no tumors ulcers or polyps seen. The scope was returned to the stomach retroflexed on itself looked in the GE junction which was normal. There was watermelon striping the stomach compatible with superficial gastritis without hemorrhage. No ulcers tumors or polyps were seen. Biopsies were taken of the antrum and hemostasis maintained. The scope was then withdrawn to the distal esophagus where she was noted to have a very small hiatal hernia and changes with esophagitis rule out Cool's. Biopsies taken hemostasis maintained. The scope was removed from the rest of the esophagus which was normal. She tolerated procedure well. Would recommend increasing her protonix to twice daily in addition to the sucralfate to see if that makes any difference and if not would definitely obtain a MRCP and/or consider stopping or discontinuing the leflunomide due to side effects. Estimated blood loss (mL): 0 Specimens: Distal esophageal antrum antral biopsies Complications: No Condition: stable Disposition: PACU
[2024-02-19 09:07] VITALS: BP 137/66; PULSE 68; O2SAT 97
[2024-02-19 09:22] VITALS: BP 144/84; PULSE 60; O2SAT 97
[2024-02-20 14:39] LABS: H Pylori Tissue, Urease Negative
== END 2024-02-19 09:22 | disposition home or self-care (01) ==
PROVIDERS: PCP Family Medicine; Visit Provider Surgery
PROC: (CPT 731; principal; 2024-02-19 08:00)
DX: R11.2 Nausea with vomiting, unspecified (principal); R10.13 Epigastric pain; E03.9 Hypothyroidism, unspecified; M06.9 Rheumatoid arthritis, unspecified; Z90.710 Acquired absence of both cervix and uterus; Z87.891 Personal history of nicotine dependence; K29.60 Other gastritis without bleeding; K44.9 Diaphragmatic hernia without obstruction or gangrene; K21.00 Gastro-esophageal reflux disease with esophagitis, without bleeding; K22.70 Barrett's esophagus without dysplasia; R79.89 Other specified abnormal findings of blood chemistry; E66.8 Other obesity; Z68.34 Body mass index [BMI] 34.0-34.9, adult
CPT/HCPCS: 43239; 87077; 88305; 99999

== ENCOUNTER 2024-07-25 15:30 | Outpatient (OUT) | payer OTHER, SELFPAY ==
--- NOTE | 2024-07-25 15:44 | XR_ITS ---
The [address] [address] Patient Name: DEEPA ZAYAS MRN: [id number] date: 1960 Sex: F Assigned Patient Location: [facility] Current Patient Location: Accession/Order Number: [id number] Exam Date: 07/25/2024 15:50 Report Date: 07/28/2024 05:59 At the request of: REAL BAUTISTA Procedure: XR lumbar spine min 4V EXAMINATION: XR lumbar spine min 4V HISTORY: Lumbar Radiculopathy M54.16 COMPARISON: CT abdomen pelvis 02/15/2024 FINDINGS: BONES: Mild degenerative facet arthropathy L3-L4, L4-L5, L5-S1. No fracture or spondylolisthesis. DISC SPACES: Moderate narrowing L5-S1. PARASPINOUS: Negative. No paraspinous abnormality is seen. OTHER: Negative. XR/XR lumbar spine min 4V IMPRESSION: 1. L5-S1 moderate degenerative disc disease and mild degenerative facet arthropathy; not appreciably changed. Electronically authenticated by: HAYES SINGH Date: 07/28/2024 05:59
--- OUTSIDE RECORDS SUMMARY | 2024-07-25 15:47 | XMS_ITS | CCD ---
Author Organization [facility] Care Team Providers Care Nurse Epidemiologist Name Role Phone AVERY MCKNIGHT Attending Unavailable HOY ., DR NOBLE Primary Care Unavailable GRECHNY ., DEEPTI PHILLIP Consulting UnavailAVERY Adams Admitting Unavailable STRAWSERHERNÁN Consulting Unavailable HOY ., DR NOBLE Attending [...] HOY ., DR NOBLE Primary Care Unavailable MAXWELL, DR CALLY Aguila Consulting Unavailable HOY ., DR NOBLE Consulting Unavailable HOY ., DR NOBLE Attending Unavailable HOY ., DR NOBLE Admyordan Unavailable HOY ., DR NOBLE Primary Care Unavailable CASANDRA ALLEN Attending Unavailable CASANDRA ALLEN Admitting Unavailable HOY ., DR NOBLE Primary Care Unavailable CASANDRA ALLEN Consulting Unavailable Real Kimball MD Primary Care Provider [phone] JOHN PINEDA Attending Unavailable HOY, REAL M Referring Unavailable HOY, REAL M Primary Care Unavailable NUBIA NOGUEIRA Admitting Unavailable NUBIA NOGUEIRA Attending Unavailable HOY, REAL M Primary Care Unavailable CALLY ARREAGA Attending Unavailable HOY, REAL M Primary Care Unavailable NUBIA NOGUEIRA Attending Unavailable TAYLORS NUBIA E Referring Unavailable HOY, REAL M Primary Care Unavailable DO Nubia Nogueira Attending Provider Nubia Nogueira Admitting Unavailable Nubia Nogueira Attending Unavailable BARBARA LICEA Attending Unavailable Real Kimball MD Primary Care Provider [phone] Allergies Allergy Classification Reported Allergen(s) Allergy Type Date of Onset Reaction(s) Facility (1 source) Penicillin Drug Allergy [facility] Repository (1 source) Sulfonamides (Antibiotic) Drug allergy (disorder) [facility] (5 sources) Penicillins; Translations: [PENICILLINS] Propensity to adverse reactions to drug 1 [facility] (4 sources) sulfabenzamide; Translations: [SULFABENZAMIDE] Drug Allergy 9 [facility] (5 sources) Sulfonamides (Antibiotic); Translations: [SULFA (SULFONAMIDE ANTIBIOTICS)] Propensity to adverse reactions to drug 9 [facility] Medications Current Medications Medication Drug Class(es) Dates Sig (Normalized) Sig (Original) lactobacillus acidophilus [id number] unt / pectin 100 mg oral tablet (2 sources) take 1 tablet by mouth once daily at breakfast acidophilus-pectin , citrus 25 million cell -100 mg tablet Take 1 tablet by mouth daily with breakfast. Active leflunomide 20 mg oral tablet (2 sources) Antirheumatic Agent Start: 08-11-2018 take 1 tablet by mouth in the morning leflunomide (ARAVA) 20 mg tablet Take 1 tablet (20 mg total) by mouth in the morning. 08/11/2018 Active levothyroxine sodium 0.15 mg oral tablet (2 sources) l-Thyroxine Start: 07-14-2018 take 1 tablet by mouth in the morning levothyroxine (SYNTHROID, LEVOTHROID) 150 MCG tablet Take 1 tablet (150 mcg total) by mouth in the morning. 07/14/2018 Active liothyronine sodium 0.005 mg oral tablet (2 sources) l-Triiodothyronine Start: 08-27-2018 take 1 tablet by mouth in the morning liothyronine (CYTOMEL) 5 MCG tablet Take 1 tablet (5 mcg total) by mouth in the morning. 08/27/2018 Active loratadine 10 mg oral tablet (2 sources) take 1 tablet by mouth in the morning loratadine (CLARITIN) 10 mg tablet Take 1 tablet (10 mg total) by mouth in the morning. Active Multivitamin preparation (2 sources) multivitamin (MULTI-DAY ORAL) Take by mouth. Active multivitamin (MU LTI-DAY ORAL) Take by mouth. 0 Active omeprazole 40 mg delayed release oral capsule (3 sources) Proton Pump Inhibitor Start: 07-13-2024 take 1 capsule by mouth at bedtime omeprazole (PriLOSEC) 40 mg capsule TAKE 1 CAPSULE (40 MG TOTAL) BY MOUTH IN THE MORNING AND AT BEDTIME. 60 capsule 1 07/13/2024 Active Start: 05-06-2024 End: 07-13-2024 take 1 capsule by mouth at bedtime omeprazole (PriLOSEC) 40 mg capsule TAKE 1 CAPSULE (40 MG TOTAL) BY MOUTH IN THE MORNING AND AT BEDTIME. 60 capsule 1 05/06/2024 07/13/2024 Discontinued omeprazole (PriL OSEC) 40 mg capsule Take 20 mg by mouth in the morning and at bedtime. 0 Active peg 3350-sod sulf,chlr-pot-m ag 178.7-7.3-0.5 gram recon soln (1 source) Start: 10-22-2023 End: 10-23-2023 peg 3350-sod sulf,chlr-pot-m ag 178.7-7.3-0.5 gram recon soln Indications: Family history of malignant neoplasm of colon Take 1 kit by mouth once daily for 1 dose. Please see instructional sheet given by physicians office. 1 each 0 10/22/2023 10/23/2023 Active Turmeric extract (2 sources) TURMERIC ORAL Ta ke by mouth daily. Active TURMERIC ORAL Ta ke by mouth daily. [...] Active Problems Problem Classification Problem Date Documented Date Episodic/Chronic Acute bronchitis (5 sources) Acute bronchitis, unspecified; Translations: [ACUTE BRONCHITIS UNSPECIFIED] Onset: 04-05-2022 Episodic Intestinal infection (2 sources) Enterocolitis due to Clostridium difficile, not specified as recurrent; Translations: [Enterocolitis due to Clostridium difficile, not specified as recurrent] Onset: 03-11-2024 Episodic Other screening for suspected conditions (not [...] te Episodic/Chronic Other aftercare (1 source) Other nursing home (current) drug therapy; Translations: [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 [facility] 36 Patient calling in to ask for extension of time off until Thursday03/03/24 d/t to the fact she didn't start the Vowst until 02/21 and the Vowst rep told her she needed an entire 10 days after to feel the full relief of her nausea and diarrhea. Please advise, as of now she is off until 03/30/24 from the previous estimation that she would have started the Vowst on 03/20/24. 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 Patient is asking for a note allowing her off one more week, during which time she should be starting her dosage of Vowst as well. Please advise. [facility] Documentationon 03-16-2024 Documentation [id number] Deepa Sears 1960 F Date Provider Department Center 03/16/2024 JERARDO FERNANDEZ None No family history on file Reason for Visit and Comments: Specialty Pharmacy Note: Vowst [Other] [facility] 36on 03-15-2024 36 Patient calling to report that despite being on the Dificid since her 03/11/24 OV, she is feeling very little improvement and still very sick. Patient states that she is fatigued and every morning is bloated, full of gas, and has a diarrhea episode that last for at least an hour. Confirmed with her that the Vowst is in process of being ordered, approved and has an estimated delivery date of 03/21 or 03/22 the day after she completes her antibiotics. Explained that Vowst needs to be taken 1 to 3 days after the last dose of antibiotic is administered. She is off work per a note from Dr. Licea until 03/21/24 but doesn't think she will be well enough to go back to her factory job. Patient states, I am always in the bathroom with diarrhea, I can't work that way and I don't want to lose my job. Something needs to be done. Please advise Normal [facility] Telephoneon 03-15-2024 Telephone [id number] Deepa Sears 1960 F Date Provider Department Center 03/15/2024 [id number], B[facility] No family history on file Normal [facility] Office Visiton 03-11-2024 Follow-up visit [id number] Deepa Sears 1960 Date Provider Department Center 03/11/2024 Sachin-BARBARA LICEA [facility] No family history on file Level of Service:11686 [place] OFFICE/OUTPATIENT NEW LOW MDM 30 MINUTES Reason for Visit and Comments: New Patient [632] GERD [[id number]] - C Diff Vowst candidate Normal [facility] [place] 02-19-2024 L Specimen: [id number] Received: 02/19/24 Status: THOMAS Sy Num: [id number] Spec Type: Surgical Subm Dr: Nubia Nogueira DO Tissues: A Stomach - Biopsy/Polyp (ANTRUM) B Esophagus Biopsy (GE JUNCTION) Procedures: HE/4, Gross/Micro L4/2 Age/ Patient Sex Location Account Attending Physician Deepa Sears 63/F [facility] [id number] Nubia Nogueira DO SPEC NUM: [id number] RECD: 02/19/24 STATUS: THOMAS SY NUM: [id number] PREETI: 02/19/[address]: Nubia Nogueira DO ENTERED: 02/19/24-[address]: Alejandro,Lab SPEC TYPE: Surgical DEPT: CARINE STAHL ORDERED: HE/4, Gross/Micro L4/2 ORDERED: HE/4, Gross/Micro L4/2 Pathological Diagnosis A, antrum biopsy: -Antral mucosa with moderate chronic reactive gastropathy, including mildly associated petechial congestion, otherwise without erosion, intestinal metaplasia, glandular atypia, or significant stromal chronic inflammation observed -Also no other specific features of Helicobacter infection per routine H E morphological assessment B, GE junction biopsy: -Multiple small disrupted strips of squamous and superficial glandular mucosa apparently devoid of the stromal portion, but with occasional mild intestinal metaplasia per features of chronic Cool esophagitis, otherwise without active reflux activity, significant stromal chronic inflammation, or obvious glandular dysplasia identified Clinical Information Mild gastritis and esophagitis, hiatal hernia Specimen: [id number] Received: 02/19/24 Status: THOMAS Sy Num: [id number] Spec Type: Surgical Subm Dr: Nubia Nogueira DO Tissues: A Stomach - Biopsy/Polyp (ANTRUM) B Esophagus Biopsy (GE JUNCTION) Procedures: JANETDavid, Gross/Micro L4/2 Patient: Deepa Sears [id number] (Continued) Specimen: [id number] Received: 02/19/24 (Continued) Signed (signature on file) Darshan Iniguez MD 02/22/242036 Specimen: [id number] Received: 02/19/24 Status: THOMAS Tinocostephan Num: [id number] Spec Type: Surgical Subm Dr: Nubia Nogueira DO Tissues: A Stomach - Biopsy/Polyp (ANTRUM) B Esophagus Biopsy (GE JUNCTION) Procedures: HE/David, Gross/Micro L4/2 Patient: Deepa Sears [id number] (Continued) Specimen: [id number] Received: 02/19/24 (Continued) Gross Description Received are 2 formalin filled containers each labeled with the patient's name, date of and specific specimen site. A. Further labeled antrum are 2 mucosal tissue fragments measuring 0.4 x 0.2 x 0.1 cm and 0.3 x 0.2 x 0.1 cm, entirely submitted in A1. B. Further labeled GE junction are multiple maurice mucosal tissue fragments measuring in aggregate 0.9 x 0.2 x 0.1 cm, entirely submitted in B1. [facility] Codes 76995F1 Specimen: [id number] Received: 02/19/24 Status: THOMAS Tinocostephan Num: [id number] Spec Type: Surgical Subm Dr: Nubia Nogueira DO Tissues: A Stomach - Biopsy/Polyp (ANTRUM) B Esophagus Biopsy (GE JUNCTION) Procedures: JANET/David, Gross/Micro L4/2 Patient: Deepa Sears [id number] (Continued) Signed (signature on file) Darshan Iniguez MD 02/22/242036 Normal [facility] XR CHEST 2 Von 12-24-2022 XR CHEST [...] by: EDDIE OROSCO Date: 2022-12-24 16:25 Normal [facility] MAMM SCREEN 3D DALE CADon 10-20-2022 MG MAMM SCREEN 3D DALE CAD Patient: DEEPA SEARS Exam Date: 10/20/2022 : 1960 Gender:F Ordering : DR REAL KIMBALL . Admission #: [id number] Family : Order #: [id number] CLICK HERE TO VIEW EXAM RADIOLOGY REPORT [...] breast cancer at age 70. LOCATION: [facility] BREAST COMPOSITION: Heterogeneously dense,which may [...] MD on 10/20/2022 at 12:00 Normal [facility] Covid-19 PCR (CVDTBH)on SARS-CoV-2 (COVID-19) RNA EMMANUEL+probe Ql (Unsp spec) Not detected Normal NOT DETECTED [facility] Comment on above: Result Comment: [...] for this test is supported by the [place] of Health and Human Service's declaration that [...] used). Performed By: #### C VDTBH #### [facility] [address] [place] [address] Dr. Cindi Iniguez INFLUENZA A AND B AGon 10-08 [facility] SEE BELOW Normal [facility] Comment on above: Result Comment: Nega tive for Flu A protein angiten. Infection due to Flu A cannot be ruled out. Flu A angiten in the sample may be below the detection limit of the test. Performed By: #### C MP, BNP, HSTROPN #### [facility] [address] [place] [address] Dr. Cindi [facility]igue[facility] BELOW Normal [facility] Comment on above: Result Comment: Nega tive for Flu B protein antigen. Infection due to Flu B cannot be ruled out. Flu B antigen in the sample may be below the detection limit of the test. Performed By: #### C MP, BNP, HSTROPN #### [facility] [address] [place] [address] Dr. Cindi Iniguez INFLUENZA A AG Negative Normal NEGATIVE SEE COMMENT [facility] Comment on above: Performed By: #### C MP, BNP, HSTROPN #### [facility] [address] [address] [address] Cindi Iniguez INFLUENZA B AG Negative Normal NEGATIVE SEE COMMENT [facility] Comment on above: Performed By: #### C MP, BNP, HSTROPN #### [facility] [address] [place] [address] Dr. Cindi Iniguez Covid-19 PCR (CVDTB)on 07-09 SARS-CoV-2 (COVID-19) RNA EMMANUEL+probe Ql (Unsp spec) Not detected Normal NOT DETECTED [facility] Comment on above: Result Comment: [...] for this test is supported by the [place] [employer] and Human Service's declaration that [...] used). Performed By: #### C VDTBH #### [facility] [address] [place] [address] Dr. Cindi Iniguez BNPon 04-14-2022 Natriuretic peptide B (Bld) [Mass/Vol] 583.0 pg/mL Normal <=900.0 [facility] Comment on above: Performed By: #### C MP, BNP, HSTROPN #### [facility] [address] [place] [address] Dr. Cindi Iniguez CBC AUTO DIFFon 04-14-2022 BASO # 0.0 103/ul Normal 0.0-0.1 [facility] Comment on above: Performed By: #### C BC #### [facility] [address] [place] [address] Dr. Cindi Iniguez Basophils/100 WBC (Bld) 0.2 % Normal 0.2-2.0 [facility] Comment on above: Performed By: #### C BC #### [facility] [address] [place] [address] Dr. Cindi Iniguez EO # 0.0 103/ul Normal 0.0-0.7 [facility] Comment on above: Performed By: #### C BC #### [facility] [address] [place] [address] Dr. Cindi Iniguez Eosinophils/100 WBC (Bld) 0.3 % Critically low 0.9-7.0 [facility] Comment on above: Performed By: #### C BC #### [facility] [address] [place] [address] Dr. Cindi Iniguez Erythrocyte distribution width (RBC) [Ratio] 12.6 % Normal 11.0-15.0 [facility] Comment on above: Performed By: #### C BC #### [facility] [address] [place] [address] Dr. Cindi Iniguez Hematocrit (Bld) [Volume fraction] 43.3 % Normal 36.0-48.0 [facility] Comment on above: Performed By: #### C BC #### [facility] [address] [place] [address] Dr. Cindi Iniguez Hemoglobin (Bld) [Mass/Vol] 14.5 g/dL Normal 12.0-16.0 [facility] Comment on above: Performed By: #### C BC #### [facility] [address] [place] [address] Dr. Cindi Iniguez IG # 0.07 10e3/ul Critically high 0.00-0.03 [facility] Comment on above: Performed By: #### C BC #### [facility] [address] [place] [address] Dr. Cindi Iniguez IG % 0.5 % Normal 0.0-0.5 [facility] Comment on above: Performed By: #### C BC #### [facility] [address] [place] [address] Dr. Cindi Iniguez LYMPH # 1.8 103/ul Normal 1.2-3.8 [facility] Comment on above: Performed By: #### C BC #### [facility] [address] [place] [address] Dr. Cindi Ingiuez Lymphocytes/100 WBC (Bld) 12.9 % Critically low 20.5-60.0 [facility] Comment on above: Performed By: #### C BC #### [facility] [address] [place] [address] Dr. Cindi Iniguez MANUAL DIFF REQ NO Normal [facility] Comment on above: Performed By: #### C BC #### [facility] [address] [place] [address] Dr. Cindi Iniguez MCH (RBC) [Entitic mass] 30.5 pg Normal 26.7-34.0 [facility] Comment on above: Performed By: #### C BC #### [facility] [address] [place] [address] Dr. Cindi Iniguez MCHC (RBC) [Mass/Vol] 33.5 g/dL Normal 29.9-35.2 [facility] Comment on above: Performed By: #### C BC #### [facility] [address] [place] [address] Dr. Cindi Iniguez MCV (RBC) [Entitic vol] 91.0 fL Normal 81.0-99.0 [facility] Comment on above: Performed By: #### C BC #### [facility] [address] [place] [address] Dr. Cindi Iniguez MONO # 1.0 103/ul Critically high 0.3-0.8 [facility] Comment on above: Performed By: #### C BC #### [facility] [address] [place] [address] Dr. Cindi Iniguez Monocytes/100 WBC (Bld) 7.1 % Normal 1.7-12.0 [facility] Comment on above: Performed By: #### C BC #### [facility] [address] [place] [address] Dr. Cindi Iniguez NEUT # 10.9 103/ul Critically high 1.4-6.5 [facility] Comment on above: Performed By: #### C BC #### [facility] [address] [place] [address] Dr. Cindi Iniguez Neutrophils/100 WBC (Bld) 79.0 % Critically high 43.0-75.0 [facility] Comment on above: Performed By: #### C BC #### [facility] [address] [place] [address] Dr. Cindi Iniguez Platelet mean volume (Bld) [Entitic vol] 8.8 fL Critically low 9.5-13.5 [facility] Comment on above: Performed By: #### C BC #### [facility] [address] [place] [address] Dr. Cindi Iniguez PLT 207 103/ul Normal 150-450 [facility] Comment on above: Performed By: #### C BC #### [facility] [address] [place] [address] Dr. Cindi Iniguez RBC 4.76 106/ul Normal 4.20-5.40 [facility] Comment on above: Performed By: #### C BC #### [facility] [address] [place] [address] Dr. Cindi Iniguez WBC 13.8 103/ul Critically high 4.0-11.0 [facility] Comment on above: Performed By: #### C BC #### [facility] [address] [place] [address] Dr. Cindi Iniguez CTA CHEST WO W CONon 022 CTA CHEST WO W CON EXAMINATION:CTA CHEST [...] by: HERNÁN BAR Date: 2022-04-14 16:28 Normal [facility] PROF 14(COMP METB)on 022 Albumin [Mass/Vol] 3.5 g/dL Normal 3.4-5.0 [facility] Comment on above: Performed By: #### C MP, BNP, HSTROPN #### [facility] [address] [place] [address] Dr. Cindi Iniguez Albumin/Globulin [Mass ratio] 1.0 {ratio} Normal [facility] Comment on above: Performed By: #### C MP, BNP, HSTROPN #### [facility] [address] [address] [address] Cindi Iniguez ALP [Catalytic activity/Vol] 64 U/L Normal 46-116 [facility] Comment on above: Performed By: #### C MP, BNP, HSTROPN #### [facility] [address] [address] [address] Cindi Iniguez ALT [Catalytic activity/Vol] 44 U/L Normal 14-59 [facility] Comment on above: Performed By: #### C MP, BNP, HSTROPN #### [facility] [address] [address] [address] Cindi Iniguez Anion gap [Moles/Vol] 12.5 mmol/L Normal [facility] Comment on above: Performed By: #### C MP, BNP, HSTROPN #### [facility] [address] [address] [address] Cindi Iniguez AST [Catalytic activity/Vol] 21 U/L Normal 15-37 [facility] Comment on above: Performed By: #### C MP, BNP, HSTROPN #### [facility] [address] [address] [address] Cindi Iniguez Bilirubin [Mass/Vol] 0.3 mg/dL Normal 0.2-1.0 [facility] Comment on above: Performed By: #### C MP, BNP, HSTROPN #### [facility] [address] [address] [address] Cindi Iniguez Calcium [Mass/Vol] 9.1 mg/dL Normal 8.5-10.1 [facility] Comment on above: Performed By: #### C MP, BNP, HSTROPN #### [facility] [address] [place] [address] Dr. Cindi Iniguez Chloride [Moles/Vol] 97 mmol/L Critically low 98-107 [facility] Comment on above: Performed By: #### C MP, BNP, HSTROPN #### [facility] [address] [place] [address] Dr. Cindi Iniguez CO2 [Moles/Vol] 29.8 mmol/L Normal 21.0-32.0 [facility] Comment on above: Performed By: #### C MP, BNP, HSTROPN #### [facility] [address] [place] [address] Dr. Cindi Iniguez Creatinine [Mass/Vol] 1.06 mg/dL Critically high 0.55-1.02 [facility] Comment on above: Performed By: #### C MP, BNP, HSTROPN #### [facility] [address] [place] [address] Dr. Cindi Iniguez EGFR-AF GRENADIAN >60 Normal >=60 [facility] Comment on above: Performed By: #### C MP, BNP, HSTROPN #### [facility] [address] [place] [address] Dr. Cindi Iniguez EGFR-NON AF GRENADIAN 53 mL/min/1.73m2 Critically low >=60 [facility] Comment on above: Performed By: #### C MP, BNP, HSTROPN #### [facility] [address] [place] [address] Dr. Cindi Iniguez Globulin (S) [Mass/Vol] 3.6 g/dL Normal [facility] Comment on above: Performed By: #### C MP, BNP, HSTROPN #### [facility] [address] [place] [address] Dr. Cindi Iniguez Glucose [Mass/Vol] 109 mg/dL Critically high 74-106 T [facility] Comment on above: Performed By: #### C MP, BNP, HSTROPN #### [facility] [address] [place] [address] Dr. Cindi Iniguez Potassium [Moles/Vol] 4.3 mmol/L Normal 3.5-5.1 [facility] Comment on above: Performed By: #### C MP, BNP, HSTROPN #### [facility] [address] [place] [address] Dr. Cindi Iniguez Protein [Mass/Vol] 7.1 g/dL Normal 6.4-8.2 [facility] Comment on above: Performed By: #### C MP, BNP, HSTROPN #### [facility] [address] [place] [address] Dr. Cindi Iniguez Sodium [Moles/Vol] 135 mmol/L Critically low 136-145 Th [facility] Comment on above: Performed By: #### C MP, BNP, HSTROPN #### [facility] [address] [place] [address] Dr. Cindi Iniguez Urea nitrogen [Mass/Vol] 17.0 mg/dL Normal 7.0-18.0 [facility] Comment on above: Performed By: #### C MP, BNP, HSTROPN #### [facility] [address] [place] [address] Dr. Cindi Iniguez Urea nitrogen/Creatinine [Mass ratio] 16.0 mg/mg Normal [facility] Comment on above: Performed By: #### C MP, BNP, HSTROPN #### [facility] [address] [place] [address] Dr. Cindi Iniguez PROTIMEon 04-14-2022 INR Coag (PPP) [Relative time] 0.93 {INR} Normal [facility] Comment on above: Performed By: #### P TT, PT #### [facility] [address] [place] [address] Dr. Cindi Iniguez INR GUIDELINES SEE BELOW Normal [facility] Comment on above: Result Comment: MESSI RED INR: 2.0 - 3.0 CONDITIONS NOT LISTED BELOW 2.5 - 3.5 FOR PROSTHETIC HEART VALVE REPLACEMENT 2.5 - 3.5 RECURRENT THROMBOSIS Performed By: #### P TT, PT #### [facility] [address] [place] [address] Dr. Cindi Iniguez PT Coag (PPP) [Time] 10.1 s Normal 9.0-11.6 [facility] Comment on above: Performed By: #### P TT, PT #### [facility] [address] [place] [address] Dr. Cindi Iniguez PTTon 04-14-2022 aPTT Coag (Bld) [Time] 23.8 s Normal 22.3-36.2 [facility] Comment on above: Performed By: #### C MP, BNP, HSTROPN #### [facility] [address] [place] [address] Dr. Cindi Iniguez TROPONIN, HIGH SENSITIVITYon 04-14-2022 HSTROP 27.4 pg/mL Normal 4.0-51.3 [facility] Comment on above: Result Comment: CUT- OFF POINTS HAVE BEEN ESTABLISHED BASED ON THE FOURTH UNIVERSAL DEFINITIONS OF MYOCARDIAL INFARCTION. THE UPPER REFERENCE LIMIT (URL) OF TROPONIN, DEFINED THE 99TH PERCENTILE OF cTnI DISTRIBUTION IN A REFERENCE POPULATION, HAS BEEN CONFIRMED THE DECISION THRESHOLD FOR CT DIAGNOSIS. Performed By: #### C MP, BNP, HSTROPN #### [facility] [address] [place] [address] Dr. Cindi Iniguez [facility] SARS-CoV-2 (COVID-19) RNA EMMANUEL+probe Ql (Unsp spec) Detected Critically abnormal NOT DETECTED [facility] Comment on above: Result Comment: This test is not yet approved or cleared by the [place] FDA. When there are no FDA-approved or cleared tests available, and other criteria are met, FDA can make tests available under an emergency access mechanism called an Emergency Use Authorization (EUA). The EUA for this test is supported by the [place] of Health and Human Service's (HHS's) declaration [...] By: #### C MP, BNP, HSTROPN #### [facility] [address] [place] [address] Dr. Cindi Iniguez Vital Signs Date Time Vital Sign Value Performing Clinician Faci lity 10-22-2023 15:23-0500 Body mass index (BMI) [Ratio] 36.39 kg/m2 John Pineda COMPUTER APPLICATION DEVELOPER-APPRAISAL MANAGER Work Phone: [facility] Y[facility] 10-22-2023 15:23-0500 Body weight 96.16 kg Johnomari Pineda COMPUTER APPLICATION DEVELOPER-APPRAISAL MANAGER Work Phone: [facility] Encounters Encounter Date Encounter Type Care Provider Facility Start: 07-13-2024 End: 07-13-2024 Refill Nubia Nogueira DO Work Phone: [facility] Start: 03-11-2024 End: 03-11-2024 ambulatory BARBARA [facility] Start: 02-19-2024 End: 02-19-2024 ambulatory Nubia Nogueira [facility] Work Phone: Start: 02-19-2024 End: 02-19-2024 Departed Referred DO Nubia Nogueira Work Phone: [facility] Start: 11-06-2023 End: 11-06-2023 Evaluation and management of inpatient CALLY ARREAGA [facility] Start: 11-05-2023 End: 11-06-2023 Evaluation and management of inpatient NUBIA NOGUEIRA [facility] Start: 10-22-2023 ambulatory JOHN PINEDA [facility] Start: 10-22-2023 End: 10-22-2023 Office outpatient new 30 minutes John Pineda COMPUTER APPLICATION DEVELOPER-APPRAISAL MANAGER Work Phone: [facility] Comment on [...] Date Procedure Procedure Detail Performing Clinician Start: 11-05-2023 Colonoscopy Nubia holley Work Phone: Start: 10-11-2018 Colonoscopy John Tucker wilton COMPUTER APPLICATION DEVELOPER-APPRAISAL MANAGER Work Phone: Plan of Treatment Date Care Activity Detail Author Start: 11-04-2028 Screening for malign ant neoplasm of colon Colonoscopy [facility] Start: 11-04-2024 Adult BMI Screening Adult BMI Screen ing [facility] Start: 11-04-2024 Tobacco Screening Tobacco Screening [facility] Start: 10-22-2024 Adult BMI Screening Adult BMI Screen ing [facility] Start: 10-22-2024 Tobacco Screening Tobacco Screening [facility] Start: 05-08-2024 COVID-19 Vaccine ( season) COVID-19 Vaccine () [facility] Start: 05-08-2024 Influenza vaccination Influenza Vacc ine [facility] Start: 11-05-2023 End: 11-05-2023 Admission to same day surgery center 11/05/2023 11:00 AM EST - 11/05/2023 11:30 AM EST Surgery [facility] [address] [place] [address] Nubia Nogueira, DO [address] [place] [address] [phone] COLONOSCOPY DIAGNOSTIC / SCREENING [21866 (CPT )] [facility] Comment on above: COLONOSCOPY DIAGNOST IC / SCREENING [28077 (CPT )] Start: 11-05-2023 End: 11-05-2023 Colonoscopy flx dx w/collj spec when pfrmd COLONOSCOPY DIAGNOSTIC / SCREENING Family history of colon cancer 11/05/2023 11:00 AM [facility] Start: 11-05-2023 Subsequent hospital visit by physician 11/05/2023 11:00 AM EST Hospital Encounter [facility] - Surgery [address] [place] [id number] Nubia Nogueira, DO [address] [place] [address] [phone] [facility] Start: 10-29-2023 End: 10-29-2023 ambulatory 10/29/2023 2:10 PM EST Support Visit [facility] - Pre Admit [address] [place] [address] [facility] Pre Admit Start: 10-11-2023 Screening for malign ant neoplasm of colon Colonoscopy [facility] Start: 2010 Administration of varicella zoster vaccine Zoster (Shingles) Vaccine (1 of 2) [facility] Start: 1979 DTaP,Tdap and Td Vac cines (1 - Tdap) DTaP,Tdap and Td Vaccines (1 - Tdap) [facility] Start: 1978 Adult BMI Follow Up Plan Adult BMI Follow Up Plan [facility] Start: 1972 Depression Screening Depression Scre ed [facility] End: 10-22-2024 Colonoscopy Colonoscopy GI Routine Family history of malignant neoplasm of colon 1 Occurrences [facility] 10[facility]22[facility]2023 [facility] 10[facility] Comment on above: 1 Occurrences starti ng 10/22/2023 until 10/22/2024 Immunizations Immunization Date Immunization Notes Care Provider Keny mata 06-17-2023 influenza virus vaccine, unspecified formulation Nubia Kb DO Work Phone: [facility] Payers Date Payer Category Payer Self-pay 2023 Managed Care Other (unspecified) [facility] [id number] 2023 Private Health Insurance [facility] [employer] [id number] 2023-Present [phone] [address] [address] [place] [address] [id number] 1960 Unknown [id number] [id number]. 2.593 1960 Unknown [id number] 2.16.840.1.501693.3.579. 2.593 1960 Unknown [id number] 2.16.840.1.796442.3.579. 2.593 1960 Unknown [id number] 2.16.840.1.455489.3.579. 2.593 1960 Unknown [id number] 2.16.840.1.612641.3.579. 2.593 1960 Unknown [id number] 2.16.840.1.732261.3.579. 2.593 1960 Unknown [id number] 2.16.840.1.947499.3.579. 2.593 1960 Unknown [id number] 2.16.840.1.245489.3.579. 2.1286 1960 Unknown [id number] 2.16.840.1.057456.3.579. 2.1286 1960 Unknown [id number] 2.16.840.1.986725.3.579. 2.1286 1960 Unknown [id number] 2.16.840.1.433801.3.579. 2.1286 1960 Unknown [id number] [id number]. 2.1286 1959 Private Health Insurance [id number] 1959 Self-pay [id number] Social History Date Type Detail Facility Start: 12-31-2022 End: 11-05-2023 Tobacco smoking status [facility] Ex-smoker [facility] Start: 08-28-1976 End: 08-28-1998 History of tobacco use Current smoker [facility] Start: 08-28-1976 End: 08-28-1998 History of tobacco use Cigarette Smoker [facility] Start: 12-31-2022 End: 11-05-2023 Tobacco use and exposure Smokeless tobacco non-user [facility] Start: 10-22-2023 End: 11-05-2023 Alcohol intake Current drinker of alcohol (finding) [facility] Start: 10-18-2020 End: 12-30-2021 History of Social function [facility] Work Phone: Start: 10-18-2020 End: 12-30-2021 Alcohol Use Disorder Identification Test - Consumption [AUDIT-C] [facility] Work Phone: How often to you hav e a drink containing alcohol? Monthly or less [facility] Work Phone: How many standard dr inks containing alcohol do you have on a typical day? 5 or 6 [facility] How often do you hav e 6 or more drinks on 1 occasion? Less than monthly [facility] Childcare Unknown [facility] Start: 09-28-2018 Alcohol Comment social [facility] Start: 1960 Sex Assigned At Not on file P [facility] Start: 1960 Sex Assigned At Female F [facility] Start: 09-22-2018 Sex Female (finding) [facility] Clinical Notes 10-22-2023 to 03-16-2024 John Pineda, COMPUTER APPLICATION DEVELOPER-APPRAISAL MANAGER - 10/22/2023 3:30 PM EST Note Date & Type Note Facility 03-16-2024 Note I spoke with Deepa and she verified that she did receive the Vowst. She asked if she needed to be retested for C. Diff after completing the medication. I sent a message to Dr. Licea and he confirmed no, she does not need to be retested. I relayed this information back to the patient and advised her to contact the office with any additional questions. Agatha Vanegas CPhT [facility] 03/22/24 12:16 PM [facility] 03-16-2024 Note Spoke to pt, she is suppose to receive the shipment on 03/21. I will follow-up with her on 03/22 to make sure she doesn't have any further questions. Jerardo Quintero, PharmD, BCACP 03/18/24 11:27 AM [facility] [phone] [facility] 03-16-2024 Note High copay. Rx at [facility], they can get copay card for pt to fill since copay is high. Called pt and gave her Josiane's number. She asked me about having next week off of work, I Epic chatted Noris regarding this. Follow-up with pt tomorrow to make sure Josiane was able to fill and she is able to get it by Thursday. Jerardo Quintero PharmD, BEA 03/17/24 2:15 PM [facility] [phone] [facility] 03-16-2024 Note Prior Authorization for [facility] has been approved 03/16/2024-04/15/2024. Case ID/Authorization Number: [id number] Urbano Mueller , [facility] 03/17/24 1:39 PM [facility] 03-16-2024 Note Specialty Pharmacy N ote: Diana Supervising Physician & Clinic:?? BILLY Mills is a 63 y.o. year old female patient with PMH of: Recurrent C. Diff GERD Allergies Allergen Reactions Penicillins Swelling Sulfa (Sulfonamide Antibiotics) Swelling Lips swell [facility]D [facility] (Diagnosis Code: A04.72). ?? Prescribed Dosin capsules once daily for 3 days Previous medications tried: Metronidazole (since 02/19/24) Vancomycin (since 02/19/24) No pertinent drug interactions were noted. No renal or hepatic dose adjustments necessary. Vitals: Ht Readings from Last 1 Encounters: 03/11/24 1.626 m (5' 4 ) Wt Readings from Last 1 Encounters: 03/11/24 84.4 kg (186 lb) BMI Readings from Last 1 Encounters: 03/11/24 31.93 kg/m??? BP Readings from Last 1 Encounters: 03/11/24 154/78 Pulse Readings from Last 1 Encounters: 03/11/24 88 Pertinent labs: No labs needed Evaluation: Based on trial and failure of above medications, patient is an appropriate candidate for this medication.? Follow-up: Pt has already spoken to us and office. Will submit PA and follow-up for her after that. ? Jerardo Quintero PharmD, BEA 03/16/24 11:48 AM [facility] [phone] [facility] 03-11-2024 Note Subjective Patient ID: Deepa Sears is a 63 y.o. female who presents for New Patient and GERD (C Diff Vowst candidate). GERD whe presents for refractory C diff infection. Symptoms started a few months ago after completing a course of antibiotics for bronchitis. She was diagnosed on 02/18 and has since been through courses fo flagyl and vancomycin without relief. She continues to have epigastric pain, nausea and vomiting, and diarrhea after every meal with 3-4 episodes of watery diarrhea a day. She denies GI bleeding. Review of Systems a 14 point ROS was otherwise negative from her HPI Objective Visit Vitals BP 154/78 (BP Location: Left arm, Patient Position: Sitting, BP Cuff Size: Adult) Pulse 88 Physical Exam Vitals and nursing note reviewed. Constitutional: General: She is not in acute distress. Appearance: Normal appearance. She is obese. She is not ill-appearing or toxic-appearing. HENT: Head: Normocephalic and atraumatic. Nose: Nose normal. Eyes: General: No scleral icterus. Pupils: Pupils are equal, round, and reactive to light. Cardiovascular: Rate and Rhythm: Normal rate and regular rhythm. Pulses: Normal pulses. Pulmonary: Effort: Pulmonary effort is normal. No respiratory distress. Breath sounds: Normal breath sounds. Abdominal: General: Abdomen is flat. There is no distension. Palpations: Abdomen is soft. There is no mass. Tenderness: There is abdominal tenderness. There is no guarding or rebound. Hernia: No hernia is present. Musculoskeletal: General: Normal range of motion. Cervical back: Normal range of motion and neck supple. No rigidity. Right lower leg: No edema. Left lower leg: No edema. Skin: General: Skin is warm. Coloration: Skin is not jaundiced. Neurological: General: No focal deficit present. Mental Status: She is alert and oriented to person, place, and time. Mental status is at baseline. Cranial Nerves: No cranial nerve deficit. Motor: No weakness. Gait: Gait normal. Psychiatric: Mood and Affect: Mood normal. Behavior: Behavior normal. Thought Content: Thought content normal. Judgment: Judgment normal. Assessment/Plan Refractory C diff infection Failed flagyl and vancomycin Will proceed to fidaxomycin and vowst Diagnoses and all orders for this visit: C. difficile diarrhea - fidaxomicin (Dificid) 200 mg tablet; Take 1 tablet (200 mg) by mouth in the morning and at bedtime for 10 days. - fecal microbio spore,live-brpk (Vowst) capsule; Take 4 each by mouth in the morning for 3 days. Diagnosis Plan 1. C. difficile diarrhea fidaxomicin (Dificid) 200 mg tablet fecal microbio spore,live-brpk (Vowst) capsule No orders of the defined types were placed in this encounter. No results found for this or any previous visit (from the past 36 hour(s)). No follow-ups on file. [facility] 10-22-2023 History of Present illness Narrative Images from the original note [...] weight loss. Her last colonoscopy was in [address] Nogueira and was normal. Review [...] 10/11/2018 Performed by Nubia Nogueira DO at [facility] ESOPHAGOGASTRODUODENOSCOPY N/A 07/04/2021 Performed by Nubia Nogueira DO at [facility] HYSTERECTOMY 2008 OOPHORECTOMY Allergies Allergen Reactions [...] mouth daily., Disp: , Rfl: peg 3350-sod sulf,hixj-cno-kfa 178.7-7.3-0.5 gram recon soln, Take 1 kit [...] patient/family/caregiver Referring and communicating with other health animal caretaker Family history of malignant neoplasm of colon [Z80.0] BETTY SMITH [facility] [place] This note was created with the assistance of a speech recognition program. While intending to generate a timely document that accurately reflects the content of the visit, no guarantee can be provided that every grammatical or spelling mistake has been or will be identified or corrected. Thank you for your understanding. BETTY Smith 10/22/23 [id number] documented in this encounter [facility] Evaluation note Diagnosis Family history of malignant neoplasm of colon- Primary Family history of colon cancer Family history of malignant neoplasm of gastrointestinal tract documented in this encounter [facility] information available [facility] Work Phone: InstructionsNot on filedocumented in this encounter [facility] filedocumented in this encounter [facility] Summary Purpose Family History No Family [...] and content) DATE CREATED AUTHOR [facility]/28/2022 [facility] DATE CREATED AUTHOR AUTHOR'S ORGANIZ ATION 10/28/2023 [facility] DATE CREATED AUTHOR AUTHOR'S ORGANIZ ATION 11/07/2023 [facility] DATE CREATED AUTHOR AUTHOR'S ORGANIZ ATION 02/20/2024 [facility] DATE CREATED AUTHOR AUTHOR'S ORGANIZ ATION 02/22/2024 [facility] DATE CREATED AUTHOR AUTHOR'S ORGANIZ ATION 03/28/2024 [facility] Reason for Visit (unrecogniz ed section and content) Reason Comments Colon Cancer Screening 5 year recall, fa [facility] history of colon cancer Reason Comments Med Refill Care Teams (unrecognized sec tion and content) Nurse Epidemiologist Relationship Specialty Start Date End Date Real Kimball MD [address] [place] [id number] PCP - General Family Medicine 09/22/18 Team Status: Inactive Member Role Status Dates Nubia Nogueira DO Attending Provider Active Start: February 19, 2024 End: February 19, 2024 Nurse Epidemiologist Relationship Specialty Start Date End Date Real Kimball MD PCP - General Family Medicine 09/22/18 Goals (unrecognized section and content) Goals may be documented in a n alternate section FOR RECORDS PERTAINING TO PATIENTS WHO ARE [...] BE BASED ON THE PRIMARY CLINICAL RECORDS. [facility]. provides no warranty or guarantee of the accuracy or completeness of information in this document.
== END 2024-07-25 15:31 | disposition home or self-care (01) ==
PROVIDERS: PCP Family Medicine; Visit Provider Family Medicine
DX: M54.16 Radiculopathy, lumbar region (principal); M51.369 Other intervertebral disc degeneration, lumbar region without mention of lumbar back pain or lower extremity pain
CPT/HCPCS: 72110

== ENCOUNTER 2024-08-25 15:42 | Outpatient (OUT) | payer OTHER, SELFPAY ==
--- NOTE | 2024-08-25 15:47 | MR_ITS ---
The [address] [address] Patient Name: DEEPA ZAYAS MRN: [id number] date: 1960 Sex: F Assigned Patient Location: MRI Current Patient Location: Accession/Order Number: [id number] Exam Date: 08/25/2024 16:00 Report Date: 08/26/2024 13:32 At the request of: REAL BAUTISTA Procedure: MR lumbar spine wo con EXAMINATION: MR lumbar spine wo con HISTORY: Low Back Pain COMPARISON: No relevant comparison available. TECHNIQUE: A variety of imaging planes and parameters were utilized for visualization of suspected pathology. FINDINGS: For the purposes of numbering, sagittal T2 image # 7 extends from the T10 vertebral body superiorly to the S3 level inferiorly. PARASPINAL AREA: Normal with no visible mass. BONES: Normal alignment with no acute fracture or spondylolisthesis CORD/CAUDA EQUINA: Normal caliber, contour, and signal intensity. DISC LEVELS: 12-L1: No significant disc/facet abnormality, spinal stenosis, or foraminal stenosis. L1-L2: No significant disc/facet abnormality, spinal stenosis, or foraminal stenosis. L2-L3: Early degenerative disc disease is present without focal protrusion or neural impingement. L3-L4: Early degenerative disc disease is present without focal protrusion or neural impingement. L4-L5: No significant disc/facet abnormality, spinal stenosis, or foraminal stenosis. L5-S1: No significant disc/facet abnormality, spinal stenosis, or foraminal stenosis. MR/MR lumbar spine wo con IMPRESSION: Mild degenerative changes L2-3 and L3-L4 with no central or foraminal stenosis Electronically authenticated by: CALLY CURRAN Date: 08/26/2024 13:32
== END 2024-08-25 15:43 | disposition home or self-care (01) ==
LOC: MRI 15:42
PROVIDERS: PCP Family Medicine; Visit Provider Family Medicine
DX: M54.50 Low back pain, unspecified (principal); M51.369 Other intervertebral disc degeneration, lumbar region without mention of lumbar back pain or lower extremity pain
CPT/HCPCS: 72148

== ENCOUNTER 2024-09-09 11:07 | Outpatient (OUT) | payer OTHER, SELFPAY ==
--- OUTSIDE RECORDS SUMMARY | 2024-09-09 11:14 | XMS_ITS | CCD ---
Author Organization [facility] Care Team Providers Care Supervisor Offset Plate Preparation Name Role Phone AVERY MCKNIGHT Attending Unavailable [...] HOY ., DR NOBLE Primary Care Unavailable HOMESTEAD, DR CALLY Aguila Consulting Unavailable HOY ., DR NOBLE Consulting Unavailable HOY ., DR NOBLE Attending Unavailable HOY ., DR NOBLE Admyordan Unavailable HOY ., DR NOBLE Primary Care Unavailable CASANDRA ALLEN Attending Unavailable CASANDRA ALLEN Admitting Unavailable HOY ., DR NOBLE Primary Care Unavailable CASANDRA ALLEN Consulting Unavailable Real Kimball MD Primary Care Provider [phone] JOHN PINEDA Attending Unavailable HOY, REAL [...] Unavailable Real Kimball MD Primary Care Provider [phone] Allergies Allergy Classification Reported Allergen(s) Allergy Type Date of Onset Reaction(s) Facility (1 source) Penicillin Drug Allergy [facility] Repository (1 source) Sulfonamides (Antibiotic) Drug allergy (disorder) [facility] Repository (5 sources) Penicillins; Translations: [PENICILLINS] Propensity to adverse reactions to drug 1 [facility] (4 sources) sulfabenzamide; Translations: [SULFABENZAMIDE] Drug Allergy 9 [facility] (5 sources) Sulfonamides (Antibiotic); Translations: [SULFA (SULFONAMIDE ANTIBIOTICS)] Propensity to adverse reactions to drug 9 [facility] Medications Current Medications Medication Drug Class(es) Dates Sig (Normalized) Sig (Original) lactobacillus acidophilus [id number] unt / pectin 100 mg oral tablet [...] te Episodic/Chronic Other aftercare (1 source) Other intermediate (current) drug therapy; Translations: [OTH COPPER PLATER CURRENT DRUG THERAPY] Onset: 04-15-2022 Episodic Other [...] turned in two business days before hand. [facility] 36 Patient calling in to ask [...] would have started the Vowst on 03/20/24. [facility] 36on 03-17-2024 36 Patient called and [...] dosage of Vowst as well. Please advise. [facility] Documentationon 03-16-2024 Documentation [id number] Deepa Sears 1960 F Date Provider Department Center 03/16/2024 JERARDO FERNANDEZ None No family history on file Reason for Visit and Comments: Specialty Pharmacy Note: Vowst [Other] [facility] 36on 03-15-2024 36 Patient calling to [...] needs to be done. Please advise Normal [facility] Telephoneon 03-15-2024 Telephone [id number] Deepa Sears 1960 F Date Provider Department Center 03/15/2024 [id number], BETH [facility] No family history on file Normal [facility] Office Visiton 03-11-2024 Follow-up visit [id number] Deepa Sears 1960 Date Provider Department Center 03/11/2024 Sachin-BARBARA LICEA [facility] No family history on file Level of Service:[id number] [place] OFFICE/OUTPATIENT NEW LOW MDM 30 MINUTES Reason for Visit and Comments: New Patient [632] GERD [[id number]] - C Diff Vowst candidate Normal [facility] [place] 02-19-2024 L Specimen: [id number] Received: 02/19/24 Status: THOMAS Sy Num: [id number] Spec Type: Surgical Subm Dr: Nubia Nogueira DO Tissues: A Stomach - Biopsy/Polyp (ANTRUM) B Esophagus Biopsy (GE JUNCTION) Procedures: HE/4, Gross/Micro L4/2 Age/ Patient Sex Location Account Attending Physician Deepa Sears 63/F [place] [id number] Nubia Nogueira DO SPEC NUM: [id number] RECD: 02/19/24 STATUS: THOMAS SY NUM: [id number] PREETI: 02/19/[address]: Nubia Nogueira DO [...] Mild gastritis and esophagitis, hiatal hernia Specimen: [id number] Received: 02/19/24 Status: THOMAS Sy Num: [id number] Spec Type: Surgical Subm Dr: Nubia Nogueira DO Tissues: A Stomach - Biopsy/Polyp (ANTRUM) B Esophagus Biopsy (GE JUNCTION) Procedures: JANETDavid, Gross/Micro L4/2 Patient: Deepa Sears [id number] (Continued) Specimen: [id number] Received: 02/19/24 (Continued) Signed (signature on file) Darshan Iniguez MD 02/22/242036 Specimen: [id number] Received: 02/19/24 Status: THOMAS Tinocostephan Num: [id number] Spec Type: Surgical Subm Dr: Nubia Nogueira DO Tissues: A Stomach - Biopsy/Polyp (ANTRUM) B Esophagus Biopsy (GE JUNCTION) Procedures: HE/David, Gross/Micro L4/2 Patient: Deepa Sears [id number] (Continued) Specimen: [id number] Received: 02/19/24 (Continued) Gross Description Received are [...] x 0.1 cm, entirely submitted in B1. [facility] Codes [id number] Specimen: [id number] Received: 02/19/24 Status: THOMAS Tinocostephan Num: [id number] Spec Type: Surgical Subm Dr: Nubia Nogueira DO Tissues: A Stomach - Biopsy/Polyp (ANTRUM) B Esophagus Biopsy (GE JUNCTION) Procedures: JANET/David, Gross/Micro L4/2 Patient: Deepa Sears [id number] (Continued) Signed (signature on file) Darshan Iniguez MD 02/22/242036 Normal [facility] XR CHEST 2 Von 12-24-2022 [...] by: EDDIE OROSCO Date: 2022-12-24 16:25 Normal [facility] MAMM SCREEN 3D DALE CADon 10-20-2022 MG MAMM SCREEN 3D DALE CAD Patient: DEEPA SEARS Exam Date: 10/20/2022 : 1960 Gender:F Ordering : DR REAL KIMBALL . Admission #: [id number] Family : Order #: [id number] CLICK HERE TO VIEW EXAM RADIOLOGY REPORT [...] breast cancer at age 70. LOCATION: [facility] BREAST COMPOSITION: Heterogeneously dense,which may [...] MD on 10/20/2022 at 12:00 Normal [facility] Covid-19 PCR (CVDTBH)on SARS-CoV-2 (COVID-19) RNA EMMANUEL+probe Ql (Unsp spec) Not detected Normal NOT DETECTED [facility] Comment on above: Result Comment: [...] for this test is supported by the Hosiery Mater of Health and Human Service's declaration that [...] used). Performed By: #### C VDTBH #### [facility] [address] [place] [address] Dr. Cindi Iniguez INFLUENZA A AND B AGon 10-08 [facility] SEE BELOW Normal [facility] Comment on above: Result Comment: Nega tive for Flu A protein angiten. Infection due to Flu A cannot be ruled out. Flu A angiten in the sample may be below the detection limit of the test. Performed By: #### C MP, BNP, HSTROPN #### [facility] [address] [place] [address] Dr. Cindi [facility]igue[facility] Normal [facility] Comment on above: Result Comment: Nega tive for Flu B protein antigen. Infection due to Flu B cannot be ruled out. Flu B antigen in the sample may be below the detection limit of the test. Performed By: #### C MP, BNP, HSTROPN #### [facility] [address] [place] [address] Dr. Cindi Iniguez INFLUENZA A AG Negative Normal NEGATIVE SEE COMMENT [facility] Comment on above: Performed By: #### C MP, BNP, HSTROPN #### [facility] [address] [address] [address] Cindi Iniguez INFLUENZA B AG Negative Normal NEGATIVE SEE COMMENT [facility] Comment on above: Performed By: #### C MP, BNP, HSTROPN #### [facility] [address] [place] [address] Dr. Cindi Iniguez Covid-19 PCR (CVDTB)on 07-09 SARS-CoV-2 (COVID-19) RNA EMMANUEL+probe Ql (Unsp spec) Not detected Normal NOT DETECTED [facility] Comment on above: Result Comment: [...] for this test is supported by the Hosiery Mater of Health and Human Service's declaration that [...] used). Performed By: #### C VDTBH #### [facility] [address] [place] [address] Dr. Cindi Iniguez BNPon 04-14-2022 Natriuretic peptide B (Bld) [Mass/Vol] 583.0 pg/mL Normal <=900.0 [facility] Comment on above: Performed By: #### C MP, BNP, HSTROPN #### [facility] [address] [place] [address] Dr. Cindi Iniguez CBC AUTO DIFFon 04-14-2022 BASO # 0.0 103/ul Normal 0.0-0.1 [facility] Comment on above: Performed By: #### C BC #### [facility] [address] [place] [address] Dr. Cindi Iniguez Basophils/100 WBC (Bld) 0.2 % Normal 0.2-2.0 [facility] Comment on above: Performed By: #### C BC #### [facility] [address] [place] [address] Dr. Cindi Iniguez EO # 0.0 103/ul Normal 0.0-0.7 [facility] Comment on above: Performed By: #### C BC #### [facility] [address] [place] [address] Dr. Cindi Iniguez Eosinophils/100 WBC (Bld) 0.3 % Critically low 0.9-7.0 [facility] Comment on above: Performed By: #### C BC #### [facility] [address] [place] [address] Dr. Cindi Iniguez Erythrocyte distribution width (RBC) [Ratio] 12.6 % Normal 11.0-15.0 [facility] Comment on above: Performed By: #### C BC #### [facility] [address] [place] [address] Dr. Cindi Iniguez Hematocrit (Bld) [Volume fraction] 43.3 % Normal 36.0-48.0 [facility] Comment on above: Performed By: #### C BC #### [facility] [address] [place] [address] Dr. Cindi Iniguez Hemoglobin (Bld) [Mass/Vol] 14.5 g/dL Normal 12.0-16.0 [facility] Comment on above: Performed By: #### C BC #### [facility] [address] [place] [address] Dr. Cindi Iniguez IG # 0.07 10e3/ul Critically high 0.00-0.03 [facility] Comment on above: Performed By: #### C BC #### [facility] [address] [place] [address] Dr. Cindi Iniguez IG % 0.5 % Normal 0.0-0.5 [facility] Comment on above: Performed By: #### C BC #### [facility] [address] [place] [address] Dr. Cindi Iniguez LYMPH # 1.8 103/ul Normal 1.2-3.8 [facility] Comment on above: Performed By: #### C BC #### [facility] [address] [place] [address] Dr. Cindi Iniguez Lymphocytes/100 WBC (Bld) 12.9 % Critically low 20.5-60.0 [facility] Comment on above: Performed By: #### C BC #### [facility] [address] [place] [address] Dr. Cindi Iniguez MANUAL DIFF REQ NO Normal [facility] Comment on above: Performed By: #### C BC #### [facility] [address] [place] [address] Dr. Cindi Iniguez MCH (RBC) [Entitic mass] 30.5 pg Normal 26.7-34.0 [facility] Comment on above: Performed By: #### C BC #### [facility] [address] [place] [address] Dr. Cindi Iniguez MCHC (RBC) [Mass/Vol] 33.5 g/dL Normal 29.9-35.2 [facility] Comment on above: Performed By: #### C BC #### [facility] [address] [place] [address] Dr. Cindi Iniguez MCV (RBC) [Entitic vol] 91.0 fL Normal 81.0-99.0 [facility] Comment on above: Performed By: #### C BC #### [facility] [address] [place] [address] Dr. Cindi Iniguez MONO # 1.0 103/ul Critically high 0.3-0.8 [facility] Comment on above: Performed By: #### C BC #### [facility] [address] [place] [address] Dr. Cindi Iniguez Monocytes/100 WBC (Bld) 7.1 % Normal 1.7-12.0 [facility] Comment on above: Performed By: #### C BC #### [facility] [address] [place] [address] Dr. Cindi Iniguez NEUT # 10.9 103/ul Critically high 1.4-6.5 [facility] Comment on above: Performed By: #### C BC #### [facility] [address] [place] [address] Dr. Cindi Iniguez Neutrophils/100 WBC (Bld) 79.0 % Critically high 43.0-75.0 [facility] Comment on above: Performed By: #### C BC #### [facility] [address] [place] [address] Dr. Cindi Iniguez Platelet mean volume (Bld) [Entitic vol] 8.8 fL Critically low 9.5-13.5 [facility] Comment on above: Performed By: #### C BC #### [facility] [address] [place] [address] Dr. Cindi Iniguez PLT 207 103/ul Normal 150-450 [facility] Comment on above: Performed By: #### C BC #### [facility] [address] [place] [address] Dr. Cindi Iniguez RBC 4.76 106/ul Normal 4.20-5.40 [facility] Comment on above: Performed By: #### C BC #### [facility] [address] [place] [address] Dr. Cindi Iniguez WBC 13.8 103/ul Critically high 4.0-11.0 [facility] Comment on above: Performed By: #### C BC #### [facility] [address] [place] [address] Dr. Cindi Iniguez CTA CHEST WO W [...] by: HERNÁN BAR Date: 2022-04-14 16:28 Normal [facility] PROF 14(COMP METB)on 022 Albumin [Mass/Vol] 3.5 g/dL Normal 3.4-5.[address] [facility] Comment on above: Performed By: #### C MP, BNP, HSTROPN #### [facility] [address] [place] [address] Dr. Cindi Iniguez Albumin/Globulin [Mass ratio] 1.0 {ratio} Normal [facility] Comment on above: Performed By: #### C MP, BNP, HSTROPN #### [facility] [address] [address] [address] Cindi Iniguez ALP [Catalytic activity/Vol] 64 U/L Normal 46-116 [facility] Comment on above: Performed By: #### C MP, BNP, HSTROPN #### [facility] [address] [address] [address] Cindi Iniguez ALT [Catalytic activity/Vol] 44 U/L Normal 14-59 [facility] Comment on above: Performed By: #### C MP, BNP, HSTROPN #### [facility] [address] [address] [address] Cindi Iniguez Anion gap [Moles/Vol] 12.5 mmol/L Normal [facility] Comment on above: Performed By: #### C MP, BNP, HSTROPN #### [facility] [address] [address] [address] Cindi Iniguez AST [Catalytic activity/Vol] 21 U/L Normal 15-37 [facility] Comment on above: Performed By: #### C MP, BNP, HSTROPN #### [facility] [address] [address] [address] Cindi Iniguez Bilirubin [Mass/Vol] 0.3 mg/dL Normal 0.2-1.0 [facility] Comment on above: Performed By: #### C MP, BNP, HSTROPN #### [facility] [address] [address] [address] Cindi Iniguez Calcium [Mass/Vol] 9.1 mg/dL Normal 8.5-10.[address] [facility] Comment on above: Performed By: #### C MP, BNP, HSTROPN #### [facility] [address] [place] [address] Dr. Cindi Iniguez Chloride [Moles/Vol] 97 mmol/L Critically low 98-107 [facility] Comment on above: Performed By: #### C MP, BNP, HSTROPN #### [facility] [address] [place] [address] Dr. Cindi Iniguez CO2 [Moles/Vol] 29.8 mmol/L Normal 21.0-32.0 [facility] Comment on above: Performed By: #### C MP, BNP, HSTROPN #### [facility] [address] [place] [address] Dr. Cindi Iniguez Creatinine [Mass/Vol] 1.06 mg/dL Critically high 0.55-1.02 [facility] Comment on above: Performed By: #### C MP, BNP, HSTROPN #### [facility] [address] [place] [address] Dr. Cindi Iniguez EGFR-AF BURKINAN >60 Normal >=60 [facility] Comment on above: Performed By: #### C MP, BNP, HSTROPN #### [facility] [address] [place] [address] Dr. Cindi Iniguez EGFR-NON AF BURKINAN 53 mL/min/1.73m2 Critically low >=60 [facility] Comment on above: Performed By: #### C MP, BNP, HSTROPN #### [facility] [address] [place] [address] Dr. Cindi Iniguez Globulin (S) [Mass/Vol] 3.6 g/dL Normal [facility] Comment on above: Performed By: #### C MP, BNP, HSTROPN #### [facility] [address] [place] [address] Dr. Cindi Iniguez Glucose [Mass/Vol] 109 mg/dL Critically high 74-106 [facility] Comment on above: Performed By: #### C MP, BNP, HSTROPN #### [facility] [address] [place] [address] Dr. Cindi Iniguez Potassium [Moles/Vol] 4.3 mmol/L Normal 3.5-5.1 [facility] Comment on above: Performed By: #### C MP, BNP, HSTROPN #### [facility] [address] [place] [address] Dr. Cindi Iniguez Protein [Mass/Vol] 7.1 g/dL Normal 6.4-8.[address] [facility] Comment on above: Performed By: #### C MP, BNP, HSTROPN #### [facility] [address] [place] [address] Dr. Cindi Iniguez Sodium [Moles/Vol] 135 mmol/L Critically low 136-145 [facility] Comment on above: Performed By: #### C MP, BNP, HSTROPN #### [facility] [address] [place] [address] Dr. Cindi Iniguez Urea nitrogen [Mass/Vol] 17.0 mg/dL Normal 7.0-18.0 [facility] Comment on above: Performed By: #### C MP, BNP, HSTROPN #### [facility] [address] [place] [address] Dr. Cindi Iniguez Urea nitrogen/Creatinine [Mass ratio] 16.0 mg/mg Normal [facility] Comment on above: Performed By: #### C MP, BNP, HSTROPN #### [facility] [address] [place] [address] Dr. Cindi Iniguez PROTIMEon 04-14-2022 INR Coag (PPP) [Relative time] 0.93 {INR} Normal [facility] Comment on above: Performed By: #### P TT, PT #### [facility] [address] [place] [address] Dr. Cindi Iniguez INR GUIDELINES SEE BELOW Normal [facility] Comment on above: Result Comment: MESSI RED INR: 2.0 - 3.0 CONDITIONS NOT LISTED BELOW 2.5 - 3.5 FOR PROSTHETIC HEART VALVE REPLACEMENT 2.5 - 3.5 RECURRENT THROMBOSIS Performed By: #### P TT, PT #### [facility] [address] [place] [address] Dr. Cindi Iniguez PT Coag (PPP) [Time] 10.1 s Normal 9.0-11.6 [facility] Comment on above: Performed By: #### P TT, PT #### [facility] [address] [place] [address] Dr. Cindi Iniguez PTTon 04-14-2022 aPTT Coag (Bld) [Time] 23.8 s Normal 22.3-36.2 [facility] Comment on above: Performed By: #### C MP, BNP, HSTROPN #### [facility] [address] [place] [address] Dr. Cindi Iniguez TROPONIN, HIGH SENSITIVITYon 04-14-2022 HSTROP 27.4 pg/mL Normal 4.0-51.3 [facility] Comment on above: Result Comment: CUT- OFF POINTS HAVE BEEN ESTABLISHED BASED ON THE FOURTH UNIVERSAL DEFINITIONS OF MYOCARDIAL INFARCTION. THE UPPER REFERENCE LIMIT (URL) OF TROPONIN, DEFINED THE 99TH PERCENTILE OF cTnI DISTRIBUTION IN A REFERENCE POPULATION, HAS BEEN CONFIRMED THE DECISION THRESHOLD FOR IA DIAGNOSIS. Performed By: #### C MP, BNP, HSTROPN #### [facility] [address] [place] [address] Dr. Cindi Iniguez [facility]08 SARS-CoV-2 (COVID-19) RNA EMMANUEL+probe Ql (Unsp spec) Detected Critically abnormal NOT DETECTED [facility] Comment on above: Result Comment: This test is not yet approved or cleared by the [place] FDA. When there are no FDA-approved or cleared tests available, and other criteria are met, FDA can make tests available under an emergency access mechanism called an Emergency Use Authorization (EUA). The EUA for this test is supported by the Hosiery Mater of Health and Human Service's (HHS's) declaration [...] By: #### C MP, BNP, HSTROPN #### [facility] [address] [place] [address] Dr. Cindi Iniguez Vital Signs Date Time Vital Sign Value Performing Clinician Faci lity 10-22-2023 15:23-0500 Body mass index (BMI) [Ratio] 36.39 kg/m2 John Pineda COMMUTATOR TESTER-LINE REPAIRER TOWER Work Phone: [facility] 10-22-2023 15:23-0500 Body weight 96.16 kg Johnomari Pineda COMMUTATOR TESTER-LINE REPAIRER TOWER Work Phone: [facility] Encounters Encounter Date Encounter Type Care Provider Facility Start: 07-13-2024 End: 07-13-2024 Refill Nubia Nogueira DO Work Phone: [facility] Start: 03-11-2024 End: 03-11-2024 ambulatory BARBARA [facility] Start: 02-19-2024 End: 02-19-2024 ambulatory Nubia Nogueira [facility] Work Phone: Start: 02-19-2024 End: 02-19-2024 Departed Referred DO Nubia Nogueira Work Phone: [facility] Start: 11-06-2023 End: 11-06-2023 Evaluation and management of inpatient CALLY ARREAGA [facility] Start: 11-05-2023 End: 11-06-2023 Evaluation and management of inpatient NUBIA NOGUEIRA [facility] Start: 10-22-2023 ambulatory JOHN PINEDA [facility] Start: 10-22-2023 End: 10-22-2023 Office outpatient new 30 minutes John Pineda COMMUTATOR TESTER-LINE REPAIRER TOWER Work Phone: [facility] Comment on above: [...] Phone: Start: 10-11-2018 Colonoscopy John Tucker wilton COMMUTATOR TESTER-LINE REPAIRER TOWER Work Phone: Plan of Treatment Date Care Activity Detail Author Start: 11-04-2028 Screening for malign ant neoplasm of colon Colonoscopy [facility] Start: 11-04-2024 Adult BMI Screening Adult BMI Screen ing [facility] Start: 11-04-2024 Tobacco Screening Tobacco Screening [facility] Start: 10-22-2024 Adult BMI Screening Adult BMI Screen ing [facility] Start: 10-22-2024 Tobacco Screening Tobacco Screening [facility] Start: 05-08-2024 COVID-19 Vaccine ( season) COVID-19 Vaccine () [facility] Start: 05-08-2024 Influenza vaccination Influenza Vacc ine [facility] Start: 11-05-2023 End: 11-05-2023 Admission to same day surgery center 11/05/2023 11:00 AM EST - 11/05/2023 11:30 AM EST Surgery [facility] Surgery [address] [place] [address] Nubia Nogueira, DO [address] [place] [address] [id number] COLONOSCOPY DIAGNOSTIC / SCREENING [70753 (CPT )] [facility] Comment on above: COLONOSCOPY DIAGNOST IC / SCREENING [53344 (CPT )] Start: 11-05-2023 End: 11-05-2023 Colonoscopy flx dx w/collj spec when pfrmd COLONOSCOPY DIAGNOSTIC / SCREENING Family history of colon cancer 11/05/2023 11:[address] [facility] Start: 11-05-2023 Subsequent hospital visit by physician 11/05/2023 11:00 AM EST Hospital Encounter [facility] - Surgery [address] [place] [id number] Nubia Nogueira, DO [address] [place] [address] [id number] [facility] Start: 10-29-2023 End: 10-29-2023 ambulatory 10/29/2023 2:10 PM EST Support Visit [facility] - Pre Admit [address] [place] [address] [facility] Pre Admit Start: 10-11-2023 Screening for malign ant neoplasm of colon Colonoscopy [facility] Start: 2010 Administration of varicella zoster vaccine Zoster (Shingles) Vaccine (1 of 2) [facility] Start: 1979 DTaP,Tdap and Td Vac cines (1 - Tdap) DTaP,Tdap and Td Vaccines (1 - Tdap) [facility] Start: 1978 Adult BMI Follow Up Plan Adult BMI Follow Up Plan [facility] Start: 1972 Depression Screening Depression Scre ed [facility] End: 10-22-2024 Colonoscopy Colonoscopy GI Routine Family history of malignant neoplasm of colon 1 Occurrences starting 10/22/2023 until 10/22/2024 [facility] Comment on above: 1 Occurrences starti ng 10/22/2023 until 10/22/2024 Immunizations Immunization Date Immunization Notes Care Provider Keny mata 06-17-2023 influenza virus vaccine, unspecified formulation Nubia Kb DO Work Phone: [facility] Hospital Payers Date Payer Category Payer Self-pay 2023 Managed Care Other (unspecified) [facility] [id number] 2023 Private Health Insurance [facility] CHOICE PLUS [id number] 2023-Present [phone] [address] [address] [place] [address] [id number] 1960 Unknown [id number] 2.16.840.1.310871.3.579. 2.593 1960 Unknown [id number] 2.16.840.1.507946.3.579. 2.593 1960 Unknown [id number] 2.16.840.1.890832.3.579. 2.593 1960 Unknown [id number] 2.16.840.1.660930.3.579. 2.593 1960 Unknown [id number] 2.16.840.1.126316.3.579. 2.593 1960 Unknown [id number] 2.16.840.1.950653.3.579. 2.593 1960 Unknown [id number] 2.16.840.1.148475.3.579. 2.593 1960 Unknown [id number] 2.16.840.1.484946.3.579. 2.1286 1960 Unknown [id number] 2.16.840.1.507640.3.579. 2.1286 1960 Unknown [id number] 2.16.840.1.390501.3.579. 2.1286 1960 Unknown [id number] 2.16.840.1.053839.3.579. 2.1286 1960 Unknown [id number] 2.16.840.1.631202.3.579. 2.1286 1959 Private Health Insurance [id number] 1959 Self-pay [id number] Social History Date Type Detail Facility Start: 12-31-2022 End: 11-05-2023 Tobacco smoking status [facility] Ex-smoker [facility] Start: 08-28-1976 End: 08-28-1998 History of tobacco use Current smoker [facility] Start: 08-28-1976 End: 08-28-1998 History of tobacco use Cigarette Smoker [facility] Start: 12-31-2022 End: 11-05-2023 Tobacco use and exposure Smokeless tobacco non-user [facility] Start: 10-22-2023 End: 11-05-2023 Alcohol intake Current drinker of alcohol (finding) [facility] Start: 10-18-2020 End: 12-30-2021 History of Social function [facility] Work Phone: Start: 10-18-2020 End: 12-30-2021 Alcohol Use Disorder Identification Test - Consumption [AUDIT-C] [facility] Work Phone: How often to you hav e a drink containing alcohol? Monthly or less [facility] Work Phone: How many standard dr inks containing alcohol do you have on a typical day? 5 or 6 [facility] How often do you hav e 6 or more drinks on 1 occasion? Less than monthly [facility] Childcare Unknown [facility] Start: 09-28-2018 Alcohol Comment social [facility] Start: 1960 Sex Assigned At Not on file P [facility] Start: 1960 Sex Assigned At Female F [facility] Start: 09-22-2018 Sex Female (finding) [facility] Clinical Notes 10-22-2023 to 03-16-2024 John Pineda, COMMUTATOR TE[employer]-LINE REPA[employer] - 10/22/2023 3:30 PM EST Note Date [...] with any additional questions. Agatha Vanegas CPhT [facility] 03/22/24 12:16 PM [facility] 03-16-2024 Note Spoke to pt, she is suppose to receive the shipment on 03/21. I will follow-up with her on 03/22 to make sure she doesn't have any further questions. Jerardo Quintero, PharmD, BCACP 03/18/24 11:27 AM [facility] [phone] [facility] 03-16-2024 Note High copay. Rx at [facility], they can get copay card for pt to fill since copay is high. Called pt and gave her Josiane's number. She asked me about having next week off of work, I Epic chatted Noris regarding this. Follow-up with pt tomorrow to make sure Josiane was able to fill and she is able to get it by Thursday. Jerardo Quinteor PharmD, BEA 03/17/24 2:15 PM [facility] [phone] [facility] 03-16-2024 Note Prior Authorization for [facility] has been approved 03/16/2024-04/15/2024. Case ID/Authorization Number: [id number] Urbano Mueller , [facility] 03/17/24 1:39 PM [facility] 03-16-2024 Note Specialty Pharmacy N ote: Diana Supervising Physician & Clinic:?? BILLY Mills is a 63 y.o. year old female patient with PMH of: Recurrent C. Diff GERD Allergies Allergen Reactions Penicillins Swelling Sulfa (Sulfonamide Antibiotics) Swelling Lips swell [facility] of [facility]. [facility] [...] BEA 03/16/24 11:48 AM [facility] [phone] [facility] 03-11-2024 Note Subjective Patient ID: [...] past 36 hour(s)). No follow-ups on file. [facility] 10-22-2023 History of Present illness [...] by Nubia Nogueira DO at [facility] ESOPHAGOGASTRODUODENOSCOPY N/A 07/04/2021 Performed by Nubia Nogueira DO at [facility] HYSTERECTOMY 2008 OOPHORECTOMY Allergies Allergen Reactions Penicillins [...] mouth daily., Disp: , Rfl: peg 3350-sod sulf,srdk-owr-ytw 178.7-7.3-0.5 gram recon soln, Take 1 kit [...] patient/family/caregiver Referring and communicating with other health respiratory care faculty Family history of malignant neoplasm of colon [Z80.0] BETTY SMITH [facility] General [facility] [place] This note was created with the assistance of a speech recognition program. While intending to generate a timely document that accurately reflects the content of the visit, no guarantee can be provided that every grammatical or spelling mistake has been or will be identified or corrected. Thank you for your understanding. BETTY Smith 10/22/23 2390 documented in this encounter [facility] Evaluation note Diagnosis Family history of malignant neoplasm of colon- Primary Family history of colon cancer Family history of malignant neoplasm of gastrointestinal tract documented in this encounter [facility] note[facility] assessment information available [facility] Work Phone: InstructionsNot on filedocumented in this [...] and content) DATE CREATED AUTHOR 12/28/2022 [facility] DATE CREATED AUTHOR AUTHOR'S ORGANIZ ATION 10/28/2023 [facility] DATE CREATED AUTHOR AUTHOR'S ORGANIZ ATION 11/07/2023 [facility] DATE CREATED AUTHOR AUTHOR'S ORGANIZ ATION 02/20/2024 [facility] DATE CREATED AUTHOR AUTHOR'S ORGANIZ ATION 02/22/2024 [facility] DATE CREATED AUTHOR AUTHOR'S ORGANIZ ATION 03/28/2024 [facility] Reason for Visit (unrecogniz ed section and content) Reason Comments Colon Cancer Screening 5 year recall, [facility] history of colon cancer Reason Comments Med Refill Care Teams (unrecognized sec tion and content) 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 [facility] [employer] [facility]. provides no warranty or guarantee of the accuracy or completeness of information in this document.
--- NOTE | 2024-09-09 11:15 | XR_ITS ---
The [address] [address] Patient Name: DEEPA ZAYAS MRN: [id number] date: 1960 Sex: F Assigned Patient Location: [facility] Current Patient Location: Accession/Order Number: [id number] Exam Date: 09/09/2024 11:20 Report Date: 09/12/2024 07:50 At the request of: CASANDRA ALLEN Procedure: XR cervical spine 2-3V EXAMINATION: XR cervical spine 2-3V HISTORY: Neck Pain M54.2 COMPARISON: No relevant comparison available. FINDINGS: BONES: Normal alignment with no acute fracture or spondylolisthesis. Minimal spondylosis. Moderate facet osteoarthropathy DISC SPACES: Normal. No significant disc height narrowing, subluxation, or endplate abnormality. PARASPINOUS: Negative. No paraspinous abnormality is seen. OTHER: Negative. XR/XR cervical spine 2-3V IMPRESSION: Moderate facet osteoarthropathy. Electronically authenticated by: CALLY CURRAN Date: 09/12/2024 07:50
== END 2024-09-09 11:08 | disposition home or self-care (01) ==
LOC: RAD 11:10
PROVIDERS: PCP Family Medicine; Visit Provider Nurse Practitioner Family
DX: M54.2 Cervicalgia (principal); M47.892 Other spondylosis, cervical region
CPT/HCPCS: 72040

== ENCOUNTER 2024-09-14 15:26 | Outpatient (RCR) | payer OTHER, SELFPAY | END 2024-09-20 07:48 | disposition home or self-care (01) | LOC: PT 15:26 | PROVIDERS: PCP Family Medicine; Visit Provider Nurse Practitioner Family | DX: M54.2 Cervicalgia (principal) | CPT/HCPCS: 97010; 97014; 97110; 97140; 97161 ==

== ENCOUNTER 2024-09-22 10:16 | Outpatient (OUT) | payer OTHER, SELFPAY ==
--- NOTE | 2024-09-22 10:25 | XR_ITS ---
The [address] [address] Patient Name: DEEPA ZAYAS MRN: [id number] date: 1960 Sex: F Assigned Patient Location: [facility] Current Patient Location: [facility] Accession/Order Number: [id number] Exam Date: 09/22/2024 10:31 Report Date: 09/22/2024 10:54 At the request of: REAL BAUTISTA Procedure: XR shoulder RT min 2V PROCEDURE: XR shoulder RT min 2V, XR humerus RT COMPARISON: None. HISTORY: Shoulder Impingement FINDINGS: BONES:No acute fracture or dislocation. Minimal degenerative change of the acromioclavicular and glenohumeral joints. Humerus is intact . No significant subacromial spurring SOFT TISSUES:Negative. No visible soft tissue swelling. EFFUSION:None visible. OTHER: Negative. XR/XR shoulder RT min 2V IMPRESSION: Minimal osteoarthritis Electronically authenticated by: CALLY CURRAN Date: 09/22/2024 10:54
--- NOTE | 2024-09-22 10:25 | XR_ITS ---
[address] [address] Patient Name: DEEPA ZAYAS MRN: [id number] date: 1960 Sex: F Assigned Patient Location: [facility] Current Patient Location: [facility] Accession/Order Number: [id number] Exam Date: 09/22/2024 10:31 Report Date: 09/22/2024 10:54 At the request of: REAL BAUTISTA Procedure: XR humerus RT PROCEDURE: XR shoulder RT min 2V, XR humerus RT COMPARISON: None. HISTORY: Shoulder Impingement FINDINGS: BONES:No acute fracture or dislocation. Minimal degenerative change of the acromioclavicular and glenohumeral joints. Humerus is intact . No significant subacromial spurring SOFT TISSUES:Negative. No visible soft tissue swelling. EFFUSION:None visible. OTHER: Negative. XR/XR humerus RT IMPRESSION: Minimal osteoarthritis Electronically authenticated by: CALLY CURRAN Date: 09/22/2024 10:54
== END 2024-09-22 10:17 | disposition home or self-care (01) ==
LOC: RAD 10:18
PROVIDERS: PCP Family Medicine; Visit Provider Family Medicine
DX: M25.811 Other specified joint disorders, right shoulder (principal)
CPT/HCPCS: 73030; 73060

== ENCOUNTER 2024-09-26 11:30 | Outpatient (OUT) | payer OTHER, SELFPAY | END 2024-09-26 11:31 | disposition home or self-care (01) | LOC: LAB 11:32 | PROVIDERS: PCP Family Medicine; Visit Provider Family Medicine | DX: J20.9 Acute bronchitis, unspecified (principal) | CPT/HCPCS: 87070; 87205 ==

== ENCOUNTER 2024-10-07 08:29 | Outpatient (OUT) | payer OTHER, SELFPAY ==
--- OUTSIDE RECORDS SUMMARY | 2024-10-07 08:35 | XMS_ITS | CCD ---
Author Organization [facility] CliniSyin Care Team Providers Care Big Data Analytics Lead Name Role Phone AVERY MCKNIGHT Attending Unavailable [...] HOY ., DR NOBLE Primary Care Unavailable ONA, DR CALLY Aguila Consulting Unavailable HOY ., DR NOBLE Consulting Unavailable HOY ., DR NOBLE Attending Unavailable HOY ., DR NOBLE Admyordan Unavailable HOY ., DR NOBLE Primary Care Unavailable CASANDRA ALLEN Attending Unavailable CASANDRA ALLEN Admitting Unavailable HOY ., DR NOBLE Primary Care Unavailable CASANDRA ALLEN Consulting Unavailable Real Kimball MD Primary Care Provider [phone] JOHN PINEDA Attending Unavailable HOY, REAL [...] Unavailable Real Kimball MD Primary Care Provider [phone] Allergies Allergy Classification Reported Allergen(s) Allergy Type Date of Onset Reaction(s) Facility (1 source) Penicillin Drug Allergy [facility] (1 source) Sulfonamides (Antibiotic) Drug allergy (disorder) [facility] (5 sources) Penicillins; Translations: [PENICILLINS] Propensity to adverse reactions to drug 1 [facility] (4 sources) sulfabenzamide; Translations: [SULFABENZAMIDE] Drug Allergy 9 [facility] (5 sources) Sulfonamides (Antibiotic); Translations: [SULFA (SULFONAMIDE ANTIBIOTICS)] Propensity to adverse reactions to drug 9 [facility] Medications Current Medications Medication Drug Class(es) Dates Sig (Normalized) Sig (Original) lactobacillus acidophilus [id number] unt / pectin 100 mg oral tablet [...] te Episodic/Chronic Other aftercare (1 source) Other medical examiner (current) drug therapy; Translations: [OTH SWITCH ADJUSTER CURRENT DRUG THERAPY] Onset: 04-15-2022 Episodic Other [...] turned in two business days before hand. [facility] 36 Patient calling in to ask for [...] would have started the Vowst on 03/20/24. [facility] 36on 03-17-2024 36 Patient called and LVM, [...] dosage of Vowst as well. Please advise. [facility] Documentationon 03-16-2024 Documentation [id number] Deepa Sears 1960 F Date Provider Department Center 03/16/2024 JERARDO FERNANDEZ None No family history on file Reason for Visit and Comments: Specialty Pharmacy Note: Vowst [Other] [facility] 36on 03-15-2024 36 Patient calling to report [...] needs to be done. Please advise Normal [facility] Telephoneon 03-15-2024 Telephone [id number] Deepa Sears 1960 F Date Provider Department Center 03/15/2024 [id number], [facility] No family history on file Normal [facility] Office Visiton 03-11-2024 Follow-up visit [id number] Deepa Sears 1960 Date Provider Department Center 03/11/2024 Sachin-BARBARA LICEA [facility] No family history on file Level of Service:[id number] [place] OFFICE/OUTPATIENT NEW LOW MDM 30 MINUTES Reason for Visit and Comments: New Patient [632] GERD [[id number]] - C Diff Vowst candidate Normal [facility] [place] 02-19-2024 L Specimen: [id number] Received: 02/19/24 Status: THOMAS Sy Num: [id number] Spec Type: Surgical Subm Dr: Nubia Nogueira DO Tissues: A Stomach - Biopsy/Polyp (ANTRUM) B Esophagus Biopsy (GE JUNCTION) Procedures: HE/4, Gross/Micro L4/2 Age/ Patient Sex Location Account Attending Physician Deepa Sears 63/F LABELL [id number] Nubia Nogueira DO SPEC NUM: [id number] RECD: 02/19/24 STATUS: THOMAS SY NUM: [id number] PREETI: 02/19/[address]: Nubia Nogueira DO [...] Mild gastritis and esophagitis, hiatal hernia Specimen: [id number] Received: 02/19/24 Status: THOMAS Sy Num: [id number] Spec Type: Surgical Subm Dr: Nubia Nogueira DO Tissues: A Stomach - Biopsy/Polyp (ANTRUM) B Esophagus Biopsy (GE JUNCTION) Procedures: JANETDavid, Gross/Micro L4/2 Patient: Deepa Sears [id number] (Continued) Specimen: [id number] Received: 02/19/24 (Continued) Signed (signature on file) Darshan Iniguez MD 02/22/242036 Specimen: [id number] Received: 02/19/24 Status: THOMAS Tinocostephan Num: [id number] Spec Type: Surgical Subm Dr: Nubia Nogueira DO Tissues: A Stomach - Biopsy/Polyp (ANTRUM) B Esophagus Biopsy (GE JUNCTION) Procedures: HE/David, Gross/Micro L4/2 Patient: Deepa Sears [id number] (Continued) Specimen: [id number] Received: 02/19/24 (Continued) Gross Description Received are [...] x 0.1 cm, entirely submitted in B1. [facility] Codes [id number] Specimen: [id number] Received: 02/19/24 Status: THOMAS Tinocostephan Num: [id number] Spec Type: Surgical Subm Dr: Nubia Nogueira DO Tissues: A Stomach - Biopsy/Polyp (ANTRUM) B Esophagus Biopsy (GE JUNCTION) Procedures: JANET/David, Gross/Micro L4/2 Patient: Deepa Sears [id number] (Continued) Signed (signature on file) Darshan Iniguez MD 02/22/242036 Normal [facility] XR CHEST 2 Von [...] by: EDDIE OROSCO Date: 2022-12-24 16:25 Normal [facility] MAMM SCREEN 3D DALE CADon 10-20-2022 MG MAMM SCREEN 3D DALE CAD Patient: DEEPA SEARS Exam Date: 10/20/2022 : 1960 Gender:F Ordering : DR REAL KIMBALL . Admission #: [id number] Family : Order #: [id number] CLICK HERE TO VIEW EXAM RADIOLOGY REPORT [...] breast cancer at age 70. LOCATION: [facility] BREAST COMPOSITION: Heterogeneously dense,which may obscure small [...] MD on 10/20/2022 at 12:00 Normal [facility] Covid-19 PCR (CVDTBH)on SARS-CoV-2 (COVID-19) RNA EMMANUEL+probe Ql (Unsp spec) Not detected Normal NOT DETECTED [facility] Comment on above: Result Comment: When diagnostic [...] for this test is supported by the Filler Block Inserter Remover of Health and Human Service's declaration that [...] used). Performed By: #### C VDTBH #### [facility] [address] [place] [address] Dr. Cindi Iniguez INFLUENZA A AND B AGon 10-08 [facility] SEE BELOW Normal [facility] Comment on above: Result Comment: Nega tive for Flu A protein angiten. Infection due to Flu A cannot be ruled out. Flu A angiten in the sample may be below the detection limit of the test. Performed By: #### C MP, BNP, HSTROPN #### [facility] [address] [place] [address] Dr. Cindi Inigue[facility] SEE BELOW Normal [facility] Comment on above: Result Comment: Nega tive for Flu B protein antigen. Infection due to Flu B cannot be ruled out. Flu B antigen in the sample may be below the detection limit of the test. Performed By: #### C MP, BNP, HSTROPN #### [facility] [address] [place] [address] Dr. Cindi Iniguez INFLUENZA A AG Negative Normal NEGATIVE SEE COMMENT [facility] Comment on above: Performed By: #### C MP, BNP, HSTROPN #### [facility] [address] [address] [address] Cindi Iniguez INFLUENZA B AG Negative Normal NEGATIVE SEE COMMENT [facility] Comment on above: Performed By: #### C MP, BNP, HSTROPN #### [facility] [address] [place] [address] Dr. Cindi Iniguez Covid-19 PCR (CVDTB)on 07-09 SARS-CoV-2 (COVID-19) RNA EMMANUEL+probe Ql (Unsp spec) Not detected Normal NOT DETECTED [facility] Comment on above: Result Comment: When diagnostic [...] for this test is supported by the [place] of Health and Human Service's declaration that [...] used). Performed By: #### C VDTBH #### [facility] [address] [place] [address] Dr. Cindi Iniguez BNPon 04-14-2022 Natriuretic peptide B (Bld) [Mass/Vol] 583.0 pg/mL Normal <=900.0 [facility] Comment on above: Performed By: #### C MP, BNP, HSTROPN #### [facility] [address] [place] [address] Dr. Cindi Iniguez CBC AUTO DIFFon 04-14-2022 BASO # 0.0 103/ul Normal 0.0-0.1 [facility] Comment on above: Performed By: #### C BC #### [facility] [address] [place] [address] Dr. Cindi Iniguez Basophils/100 WBC (Bld) 0.2 % Normal 0.2-2.0 [facility] Comment on above: Performed By: #### C BC #### [facility] [address] [place] [address] Dr. Cindi Iniguez EO # 0.0 103/ul Normal 0.0-0.7 [facility] Comment on above: Performed By: #### C BC #### [facility] [address] [place] [address] Dr. Cindi Iniguez Eosinophils/100 WBC (Bld) 0.3 % Critically low 0.9-7.0 [facility] Comment on above: Performed By: #### C BC #### [facility] [address] [place] [address] Dr. Cindi Iniguez Erythrocyte distribution width (RBC) [Ratio] 12.6 % Normal 11.0-15.0 [facility] Comment on above: Performed By: #### C BC #### [facility] [address] [place] [address] Dr. Cindi Iniguez Hematocrit (Bld) [Volume fraction] 43.3 % Normal 36.0-48.0 [facility] Comment on above: Performed By: #### C BC #### [facility] [address] [place] [address] Dr. Cindi Iniguez Hemoglobin (Bld) [Mass/Vol] 14.5 g/dL Normal 12.0-16.0 [facility] Comment on above: Performed By: #### C BC #### [facility] [address] [place] [address] Dr. Cindi Iniguez IG # 0.07 10e3/ul Critically high 0.00-0.03 [facility] Comment on above: Performed By: #### C BC #### [facility] [address] [place] [address] Dr. Cindi Iniguez IG % 0.5 % Normal 0.0-0.5 [facility] Comment on above: Performed By: #### C BC #### [facility] [address] [place] [address] Dr. Cindi Iniguez LYMPH # 1.8 103/ul Normal 1.2-3.8 [facility] Comment on above: Performed By: #### C BC #### [facility] [address] [place] [address] Dr. Cindi Iniguez Lymphocytes/100 WBC (Bld) 12.9 % Critically low 20.5-60.0 [facility] Comment on above: Performed By: #### C BC #### [facility] [address] [place] [address] Dr. Cindi Iniguez MANUAL DIFF REQ NO Normal [facility] Comment on above: Performed By: #### C BC #### [facility] [address] [place] [address] Dr. Cindi Iniguez MCH (RBC) [Entitic mass] 30.5 pg Normal 26.7-34.0 [facility] Comment on above: Performed By: #### C BC #### [facility] [address] [place] [address] Dr. Cindi Iniguez MCHC (RBC) [Mass/Vol] 33.5 g/dL Normal 29.9-35.2 [facility] Comment on above: Performed By: #### C BC #### [facility] [address] [place] [address] Dr. Cindi Iniguez MCV (RBC) [Entitic vol] 91.0 fL Normal 81.0-99.0 [facility] Comment on above: Performed By: #### C BC #### [facility] [address] [place] [address] Dr. Cindi Iniguez MONO # 1.0 103/ul Critically high 0.3-0.8 [facility] Comment on above: Performed By: #### C BC #### [facility] [address] [place] [address] Dr. Cindi Iniguez Monocytes/100 WBC (Bld) 7.1 % Normal 1.7-12.0 [facility] Comment on above: Performed By: #### C BC #### [facility] [address] [place] [address] Dr. Cindi Iniguez NEUT # 10.9 103/ul Critically high 1.4-6.5 [facility] Comment on above: Performed By: #### C BC #### [facility] [address] [place] [address] Dr. Cindi Iniguez Neutrophils/100 WBC (Bld) 79.0 % Critically high 43.0-75.0 [facility] Comment on above: Performed By: #### C BC #### [facility] [address] [place] [address] Dr. Cindi Iniguez Platelet mean volume (Bld) [Entitic vol] 8.8 fL Critically low 9.5-13.5 [facility] Comment on above: Performed By: #### C BC #### [facility] [address] [place] [address] Dr. Cindi Iniguez PLT 207 103/ul Normal 150-450 [facility] Comment on above: Performed By: #### C BC #### [facility] [address] [place] [address] Dr. Cindi Iniguez RBC 4.76 106/ul Normal 4.20-5.40 [facility] Comment on above: Performed By: #### C BC #### [facility] [address] [place] [address] Dr. Cindi Iniguez WBC 13.8 103/ul Critically high 4.0-11.0 [facility] Comment on above: Performed By: #### C BC #### [facility] [address] [place] [address] Dr. Cindi Iniguez CTA CHEST WO W [...] by: HERNÁN BAR Date: 2022-04-14 16:28 Normal [facility] PROF 14(COMP METB)on 022 Albumin [Mass/Vol] 3.5 g/dL Normal 3.4-5.0 [facility] Comment on above: Performed By: #### C MP, BNP, HSTROPN #### [facility] [address] [place] [address] Dr. Cindi Iniguez Albumin/Globulin [Mass ratio] 1.0 {ratio} Normal [facility] Comment on above: Performed By: #### C MP, BNP, HSTROPN #### [facility] [address] [address] [address] Cindi Iniguez ALP [Catalytic activity/Vol] 64 U/L Normal 46-116 [facility] Comment on above: Performed By: #### C MP, BNP, HSTROPN #### [facility] [address] [address] [address] Cindi Iniguez ALT [Catalytic activity/Vol] 44 U/L Normal 14-59 [facility] Comment on above: Performed By: #### C MP, BNP, HSTROPN #### [facility] [address] [address] [address] Cindi Iniguez Anion gap [Moles/Vol] 12.5 mmol/L Normal [facility] Comment on above: Performed By: #### C MP, BNP, HSTROPN #### [facility] [address] [address] [address] Cindi Iniguez AST [Catalytic activity/Vol] 21 U/L Normal 15-37 [facility] Comment on above: Performed By: #### C MP, BNP, HSTROPN #### [facility] [address] [address] [address] Cindi Iniguez Bilirubin [Mass/Vol] 0.3 mg/dL Normal 0.2-1.0 [facility] Comment on above: Performed By: #### C MP, BNP, HSTROPN #### [facility] [address] [address] [address] Cindi Iniguez Calcium [Mass/Vol] 9.1 mg/dL Normal 8.5-10.1 [facility] Comment on above: Performed By: #### C MP, BNP, HSTROPN #### [facility] [address] [place] [address] Dr. Cindi Iniguez Chloride [Moles/Vol] 97 mmol/L Critically low 98-107 [facility] Comment on above: Performed By: #### C MP, BNP, HSTROPN #### [facility] [address] [place] [address] Dr. Cindi Iniguez CO2 [Moles/Vol] 29.8 mmol/L Normal 21.0-32.0 [facility] Comment on above: Performed By: #### C MP, BNP, HSTROPN #### [facility] [address] [place] [address] Dr. Cindi Iniguez Creatinine [Mass/Vol] 1.06 mg/dL Critically high 0.55-1.02 [facility] Comment on above: Performed By: #### C MP, BNP, HSTROPN #### [facility] [address] [place] [address] Dr. Cindi Iniguez EGFR-AF KYRGYZ >60 Normal >=60 [facility] Comment on above: Performed By: #### C MP, BNP, HSTROPN #### [facility] [address] [place] [address] Dr. Cinid Iniguez EGFR-NON AF KYRGYZ 53 mL/min/1.73m2 Critically low >=60 [facility] Comment on above: Performed By: #### C MP, BNP, HSTROPN #### [facility] [address] [place] [address] Dr. Cindi Iniguez Globulin (S) [Mass/Vol] 3.6 g/dL Normal [facility] Comment on above: Performed By: #### C MP, BNP, HSTROPN #### [facility] [address] [place] [address] Dr. Cindi Iniguez Glucose [Mass/Vol] 109 mg/dL Critically high 74-106 [facility] Comment on above: Performed By: #### C MP, BNP, HSTROPN #### [facility] [address] [place] [address] Dr. Cindi Iniguez Potassium [Moles/Vol] 4.3 mmol/L Normal 3.5-5.1 [facility] Comment on above: Performed By: #### C MP, BNP, HSTROPN #### [facility] [address] [place] [address] Dr. Cindi Iniguez Protein [Mass/Vol] 7.1 g/dL Normal 6.4-8.2 [facility] Comment on above: Performed By: #### C MP, BNP, HSTROPN #### [facility] [address] [place] [address] Dr. Cindi Iniguez Sodium [Moles/Vol] 135 mmol/L Critically low 136-145 [facility] Comment on above: Performed By: #### C MP, BNP, HSTROPN #### [facility] [address] [place] [address] Dr. Cindi Iniguez Urea nitrogen [Mass/Vol] 17.0 mg/dL Normal 7.0-18.0 [facility] Comment on above: Performed By: #### C MP, BNP, HSTROPN #### [facility] [address] [place] [address] Dr. Cindi Iniguez Urea nitrogen/Creatinine [Mass ratio] 16.0 mg/mg Normal [facility] Comment on above: Performed By: #### C MP, BNP, HSTROPN #### [facility] [address] [place] [address] Dr. iCndi Iniguez PROTIMEon 04-14-2022 INR Coag (PPP) [Relative time] 0.93 {INR} Normal [facility] Comment on above: Performed By: #### P TT, PT #### [facility] [address] [place] [address] Dr. Cindi Iniguez INR GUIDELINES SEE BELOW Normal [facility] Comment on above: Result Comment: MESSI RED INR: 2.0 - 3.0 CONDITIONS NOT LISTED BELOW 2.5 - 3.5 FOR PROSTHETIC HEART VALVE REPLACEMENT 2.5 - 3.5 RECURRENT THROMBOSIS Performed By: #### P TT, PT #### [facility] [address] [place] [address] Dr. Cindi Iniguez PT Coag (PPP) [Time] 10.1 s Normal 9.0-11.6 [facility] Comment on above: Performed By: #### P TT, PT #### [facility] [address] [place] [address] Dr. Cindi Iniguez PTTon 04-14-2022 aPTT Coag (Bld) [Time] 23.8 s Normal 22.3-36.2 [facility] Comment on above: Performed By: #### C MP, BNP, HSTROPN #### [facility] [address] [place] [address] Dr. Cindi Iniguez TROPONIN, HIGH SENSITIVITYon 04-14-2022 HSTROP 27.4 pg/mL Normal 4.0-51.3 [facility] Comment on above: Result Comment: CUT- OFF POINTS HAVE BEEN ESTABLISHED BASED ON THE FOURTH UNIVERSAL DEFINITIONS OF MYOCARDIAL INFARCTION. THE UPPER REFERENCE LIMIT (URL) OF TROPONIN, DEFINED THE 99TH PERCENTILE OF cTnI DISTRIBUTION IN A REFERENCE POPULATION, HAS BEEN CONFIRMED THE DECISION THRESHOLD FOR [place] DIAGNOSIS. Performed By: #### C MP, BNP, HSTROPN #### [facility] [address] [place] [address] Dr. Cindi Inigue[facility]-08 SARS-CoV-2 (COVID-19) RNA EMMANUEL+probe Ql (Unsp spec) Detected Critically abnormal NOT DETECTED [facility] Comment on above: Result Comment: This test is not yet approved or cleared by the [place] FDA. When there are no FDA-approved or cleared tests available, and other criteria are met, FDA can make tests available under an emergency access mechanism called an Emergency Use Authorization (EUA). The EUA for this test is supported by the Filler Block Inserter Remover of Health and Human Service's (HHS's) declaration [...] By: #### C MP, BNP, HSTROPN #### [facility] [address] [place] [address] Dr. Cindi Iniguez Vital Signs Date Time Vital Sign Value Performing Clinician Faci lity 10-22-2023 15:23-0500 Body mass index (BMI) [Ratio] 36.39 kg/m2 John Pineda AUTOMATIC DRILLER AND REAMER-BUCKET OPERATOR Work Phone: [facility] Gaikai [facility] 10-22-2023 15:23-0500 Body weight 96.16 kg Johnomari Pineda AUTOMATIC DRILLER AND REAMER-BUCKET OPERATOR Work Phone: [facility] Encounters Encounter Date Encounter Type Care Provider Facility Start: 07-13-2024 End: 07-13-2024 Refill Nubia Nogueira DO Work Phone: [facility] Start: 03-11-2024 End: 03-11-2024 ambulatory BARBARA [facility] Start: 02-19-2024 End: 02-19-2024 ambulatory Nubia Nogueira [facility] Work Phone: Start: 02-19-2024 End: 02-19-2024 Departed Referred DO Nubia Nogueira Work Phone: [facility] Start: 11-06-2023 End: 11-06-2023 Evaluation and management of inpatient CALLY ARREAGA [facility] Start: 11-05-2023 End: 11-06-2023 Evaluation and management of inpatient NUBIA NOGUEIRA [facility] Start: 10-22-2023 ambulatory JOHN PINEDA [facility] Start: 10-22-2023 End: 10-22-2023 Office outpatient new 30 minutes John Pineda AUTOMATIC DRILLER AND REAMER-BUCKET OPERATOR Work Phone: [facility] Comment on above: [...] Phone: Start: 10-11-2018 Colonoscopy John Tucker wilton AUTOMATIC DRILLER AND REAMER-BUCKET OPERATOR Work Phone: Plan of Treatment Date Care Activity Detail Author Start: 11-04-2028 Screening for malign ant neoplasm of colon Colonoscopy [facility] Start: 11-04-2024 Adult BMI Screening Adult BMI Screen ing [facility] Start: 11-04-2024 Tobacco Screening Tobacco Screening [facility] Start: 10-22-2024 Adult BMI Screening Adult BMI Screen ing [facility] Start: 10-22-2024 Tobacco Screening Tobacco Screening [facility] Start: 05-08-2024 COVID-19 Vaccine ( season) COVID-19 Vaccine () [facility] Start: 05-08-2024 Influenza vaccination Influenza Vacc ine [facility] Start: 11-05-2023 End: 11-05-2023 Admission to same day surgery center 11/05/2023 11:00 AM EST - 11/05/2023 11:30 AM EST Surgery [facility] Surgery [address] [place] [address] Nubia Nogueira, DO [address] [place] [address] [id number] COLONOSCOPY DIAGNOSTIC / SCREENING [90066 (CPT )] [facility] Comment on above: COLONOSCOPY DIAGNOST IC / SCREENING [88331 (CPT )] Start: 11-05-2023 End: 11-05-2023 Colonoscopy flx dx w/collj spec when pfrmd COLONOSCOPY DIAGNOSTIC / SCREENING Family history of colon cancer 11/05/2023 11:00 AM [facility] Start: 11-05-2023 Subsequent hospital visit by physician 11/05/2023 11:00 AM EST Hospital Encounter [facility] - Surgery [address] [place] [place] [id number] Nubia Nogueira, DO [address] [place] [address] [phone] [facility] Start: 10-29-2023 End: 10-29-2023 ambulatory 10/29/2023 2:10 PM EST Support Visit [facility] - Pre Admit [address] [place] [address] [facility] Pre Admit Start: 10-11-2023 Screening for malign ant neoplasm of colon Colonoscopy [facility] Start: 2010 Administration of varicella zoster vaccine Zoster (Shingles) Vaccine (1 of 2) [facility] Start: 1979 DTaP,Tdap and Td Vac cines (1 - Tdap) DTaP,Tdap and Td Vaccines (1 - Tdap) [facility] Start: 1978 Adult BMI Follow Up Plan Adult BMI Follow Up Plan [facility] Start: 1972 Depression Screening Depression Scre ed [facility] End: 10-22-2024 Colonoscopy Colonoscopy GI Routine Family history of malignant neoplasm of colon 1 Occurrences starting 10/22/2023 until 10/22/[address] [facility]: Comment on above: 1 Occurrences starti ng 10/22/2023 until 10/22/2024 Immunizations Immunization Date Immunization Notes Care Provider Keny mata 06-17-2023 influenza virus vaccine, unspecified formulation Nubia Kb DO Work Phone: [facility] Payers Date Payer Category Payer Self-pay 2023 Managed Care Other (unspecified) [facility] [id number] 2023 Private Health Insurance [facility] CHOICE PLUS [id number] 2023-Present [phone] [address] [address] [place] [address] [id number] [id number] 1960 Unknown [id number] 2.16.840.1.796753.3.579. 2.593 1960 Unknown [id number] 2.16.840.1.265432.3.579. 2.593 1960 Unknown [id number] 2.16.840.1.831736.3.579. 2.593 1960 Unknown [id number] 2.16.840.1.963330.3.579. 2.593 1960 Unknown [id number] 2.16.840.1.570303.3.579. 2.593 1960 Unknown [id number] 2.16.840.1.037950.3.579. 2.593 1960 Unknown [id number] 2.16.840.1.454992.3.579. 2.593 1960 Unknown [id number] 2.16.840.1.092668.3.579. 2.1286 1960 Unknown [id number] 2.16.840.1.768602.3.579. 2.1286 1960 Unknown [id number] 2.16.840.1.057289.3.579. 2.1286 1960 Unknown [id number] 2.16.840.1.836055.3.579. 2.1286 1960 Unknown [id number] 2.16.840.1.253598.3.579. 2.1286 1959 Private Health Insurance [id number] Self-pay [id number] Social History Date Type Detail Facility Start: 12-31-2022 End: 11-05-2023 Tobacco smoking status [facility] Ex-smoker [facility] Start: 08-28-1976 End: 08-28-1998 History of tobacco use Current smoker [facility] Start: 08-28-1976 End: 08-28-1998 History of tobacco use Cigarette Smoker [facility] Start: 12-31-2022 End: 11-05-2023 Tobacco use and exposure Smokeless tobacco non-user [facility] Start: 10-22-2023 End: 11-05-2023 Alcohol intake Current drinker of alcohol (finding) [facility] Start: 10-18-2020 End: 12-30-2021 History of Social function [facility] Work Phone: Start: 10-18-2020 End: 12-30-2021 Alcohol Use Disorder Identification Test - Consumption [AUDIT-C] [facility] Work Phone: How often to you hav e a drink containing alcohol? Monthly or less [facility] Work Phone: How many standard dr inks containing alcohol do you have on a typical day? 5 or 6 [facility] How often do you hav e 6 or more drinks on 1 occasion? Less than monthly [facility] Childcare Unknown [facility] Start: 09-28-2018 Alcohol Comment social [facility] Start: 1960 Sex Assigned At Not on file [facility] Start: 1960 Sex Assigned At Female F [facility] Start: 09-22-2018 Sex Female (finding) [facility] Clinical Notes 10-22-2023 to 03-16-2024 John Pineda, AUTOMATIC DRILLER AND REAMER-BUCKET OPERATOR - 10/22/2023 3:30 PM EST Note Date [...] with any additional questions. Agatha Vanegas CPhT [facility] 03/22/24 12:16 PM [facility] 03-16-2024 Note Spoke to pt, she is suppose to receive the shipment on 03/21. I will follow-up with her on 03/22 to make sure she doesn't have any further questions. Jerardo Quintero, PharmD, BCACP 03/18/24 11:27 AM [facility] [phone] [facility] 03-16-2024 Note High copay. Rx at [facility], they can get copay card for pt [...] BEA 03/17/24 2:15 PM [facility] [phone] [facility] 03-16-2024 Note Prior Authorization for [facility] has been approved 03/16/2024-04/15/2024. Case ID/Authorization Number: [id number] Urbano Mueller , [facility] 03/17/24 1:39 PM [facility] 03-16-2024 Note Specialty Pharmacy N [place]te: Diana Supervising Physician & Clinic:?? BILLY Mills is a 63 y.o. year old female patient with PMH of: Recurrent C. Diff GERD Allergies Allergen Reactions Penicillins Swelling Sulfa (Sulfonamide Antibiotics) Swelling Lips swell PharmD [facility] of [facility]. [facility] (Diagnosis [...] BEA 03/16/24 11:48 AM [facility] [phone] [facility] 03-11-2024 Note Subjective Patient ID: Deepa Sears [...] past 36 hour(s)). No follow-ups on file. [facility] 10-22-2023 History of Present illness Narrative Images [...] mouth daily., Disp: , Rfl: peg 3350-sod sulf,melz-jww-jcq 178.7-7.3-0.5 gram recon soln, Take 1 kit [...] patient/family/caregiver Referring and communicating with other health care services manager Family history of malignant neoplasm of colon [Z80.0] BETTY SMITH [facility] [place] This note was created with the assistance of a speech recognition program. While intending to generate a timely document that accurately reflects the content of the visit, no guarantee can be provided that every grammatical or spelling mistake has been or will be identified or corrected. Thank you for your understanding. BETTY Smith 10/22/23 7340 documented in this encounter [facility] Evaluation note Diagnosis Family history of malignant neoplasm of colon- Primary Family history of colon cancer Family history of malignant neoplasm of gastrointestinal tract documented in this encounter [facility] assessment information available [facility] Work Phone: InstructionsNot on filedocumented in this [...] and content) DATE CREATED AUTHOR [facility]/28/2022 [facility] DATE CREATED AUTHOR AUTHOR'S ORGANIZ ATION 10/28/2023 [facility] DATE CREATED AUTHOR AUTHOR'S ORGANIZ ATION 11/07/2023 [facility] DATE CREATED AUTHOR AUTHOR'S ORGANIZ ATION 02/20/2024 [facility] DATE CREATED AUTHOR AUTHOR'S ORGANIZ ATION 02/22/2024 [facility] DATE CREATED AUTHOR AUTHOR'S ORGANIZ ATION 03/28/2024 [facility] Reason for Visit (unrecogniz ed section and content) Reason Comments Colon Cancer Screening 5 year recall, [facility] history of colon cancer Reason Comments Med Refill Care Teams (unrecognized sec tion and content) Big Data Analytics Lead Relationship Specialty Start Date End Date Real Kimball MD [address] [place] [id number] PCP - General Family Medicine 09/22/18 Team Status: Inactive Member Role Status Dates Nubia Nogueira DO Attending Provider Active Start: February 19, 2024 End: February 19, 2024 Big Data Analytics Lead Relationship Specialty Start Date End Date Real [...] BE BASED ON THE PRIMARY CLINICAL RECORDS. [facility] [employer] [facility]. provides no warranty or guarantee of the accuracy or completeness of information in this document.
--- NOTE | 2024-10-07 08:43 | XR_ITS ---
The [address] [address] Patient Name: DEEPA ZAYAS MRN: [id number] date: 1960 Sex: F Assigned Patient Location: [facility] Current Patient Location: [facility] Accession/Order Number: [id number] Exam Date: 10/07/2024 08:45 Report Date: 10/07/2024 09:43 At the request of: REAL BAUTISTA Procedure: XR chest 2V EXAMINATION: XR chest 2V HISTORY: Acute Bronchitis COMPARISON: 12/24/2022 TECHNIQUE: PA and lateral FINDINGS: LUNGS: No significant pulmonary parenchymal abnormalities. VASCULATURE: No increased pulmonary vasculature. PLEURA: No pneumothorax, effusion, or pleural thickening. CARDIAC: No cardiomegaly or cardiac silhouette abnormality. MEDIASTINUM: No visible mass or adenopathy. BONES: No fracture or visible bone lesion. OTHER: Negative. XR/XR chest 2V IMPRESSION: No acute cardiopulmonary process Electronically authenticated by: CALLY CURRAN Date: 10/07/2024 09:43
== END 2024-10-07 08:30 | disposition home or self-care (01) ==
LOC: RAD 08:30
PROVIDERS: PCP Family Medicine; Visit Provider Family Medicine
DX: J20.9 Acute bronchitis, unspecified (principal)
CPT/HCPCS: 71046

== ENCOUNTER 2024-10-10 16:14 | Outpatient (REF) | payer OTHER, SELFPAY ==
--- OUTSIDE RECORDS SUMMARY | 2024-10-10 16:23 | XMS_ITS | CCD ---
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 Name Role Phone AVERY MCKNIGHT Attending [...] HOY ., DR NOBLE Primary Care Unavailable [place], DR CALLY Aguila Consulting Unavailable HOY ., DR NOBLE Consulting Unavailable HOY ., DR NOBLE Attending Unavailable HOY ., DR NOBLE Admyordan Unavailable HOY ., DR NOBLE Primary Care Unavailable CASANDRA ALLEN Attending Unavailable CASANDRA ALLEN Admitting Unavailable HOY ., DR NOBLE Primary Care Unavailable CASANDRA ALLEN Consulting Unavailable Real Kimball MD Primary Care Provider [phone] JOHN PINEDA Attending Unavailable HOY, REAL [...] Unavailable Real Kimball MD Primary Care Provider [phone] Allergies Allergy Classification Reported Allergen(s) Allergy Type Date of Onset Reaction(s) Facility (1 source) Penicillin Drug Allergy [facility] Repository (1 source) Sulfonamides (Antibiotic) Drug allergy (disorder) [facility] Repository (5 sources) Penicillins; Translations: [PENICILLINS] Propensity to adverse reactions to drug 1 [facility] (4 sources) sulfabenzamide; Translations: [SULFABENZAMIDE] Drug Allergy 9 [facility] (5 sources) Sulfonamides (Antibiotic); Translations: [SULFA (SULFONAMIDE ANTIBIOTICS)] Propensity to adverse reactions to drug 9 [facility] Medications Current Medications Medication Drug Class(es) Dates Sig (Normalized) Sig (Original) lactobacillus acidophilus [id number] unt / pectin 100 mg oral tablet [...] Episodic/Chronic Other aftercare (1 source) 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 [facility] 36 Patient calling in to ask [...] would have started the Vowst on 03/20/24. [facility] 36on 03-17-2024 36 Patient called and [...] dosage of Vowst as well. Please advise. [facility] Documentationon 03-16-2024 Documentation [id number] Deepa Sears 1960 F Date Provider Department Center 03/16/2024 JERARDO FERNANDEZ None No family history on file Reason for Visit and Comments: Specialty Pharmacy Note: Vowst [Other] [facility] 36on 03-15-2024 36 Patient calling to [...] needs to be done. Please advise Normal [facility] Telephoneon 03-15-2024 Telephone [id number] Deepa Sears 1960 F Date Provider Department Center 03/15/2024 [id number], BETH [facility] No family history on file Normal [facility] Office Visiton 03-11-2024 Follow-up visit [id number] Deepa Sears 1960 Date Provider Department Center 03/11/2024 Sachin-BARBARA LICEA [facility] No family history on file Level of Service:21890 GA OFFICE/OUTPATIENT NEW LOW MDM 30 MINUTES Reason for Visit and Comments: New Patient [632] GERD [[id number]] - C Diff Vowst candidate Normal [facility] [place] 02-19-2024 L Specimen: [id number] Received: 02/19/24 Status: THOMAS Sy Num: [id number] Spec Type: Surgical Subm Dr: Nubia Nogueira DO Tissues: A Stomach - Biopsy/Polyp (ANTRUM) B Esophagus Biopsy (GE JUNCTION) Procedures: HE/4, Gross/Micro L4/2 Age/ Patient Sex Location Account Attending Physician Deepa Sears 63/F LABELL [id number] Nubia Nogueira DO SPEC NUM: [id number] RECD: 02/19/24 STATUS: THOMAS SY NUM: [id number] PREETI: 02/19/[address]: Nubia Nogueira DO [...] Mild gastritis and esophagitis, hiatal hernia Specimen: [id number] Received: 02/19/24 Status: THOMAS Sy Num: [id number] Spec Type: Surgical Subm Dr: Nubia Nogueira DO Tissues: A Stomach - Biopsy/Polyp (ANTRUM) B Esophagus Biopsy (GE JUNCTION) Procedures: JANETDavid, Gross/Micro L4/2 Patient: Deepa Sears [id number] (Continued) Specimen: [id number] Received: 02/19/24 (Continued) Signed (signature on file) Darshan Iniguez MD 02/22/242036 Specimen: [id number] Received: 02/19/24 Status: THOMAS Tinocostephan Num: [id number] Spec Type: Surgical Subm Dr: Nubia Nogueira DO Tissues: A Stomach - Biopsy/Polyp (ANTRUM) B Esophagus Biopsy (GE JUNCTION) Procedures: HE/David, Gross/Micro L4/2 Patient: Deepa Sears [id number] (Continued) Specimen: [id number] Received: 02/19/24 (Continued) Gross Description Received are [...] x 0.1 cm, entirely submitted in B1. [facility] Codes 92344N3 Specimen: [id number] Received: 02/19/24 Status: THOMAS Tinocostephan Num: [id number] Spec Type: Surgical Subm Dr: Nubia Nogueira DO Tissues: A Stomach - Biopsy/Polyp (ANTRUM) B Esophagus Biopsy (GE JUNCTION) Procedures: JANET/David, Gross/Micro L4/2 Patient: Deepa Sears [id number] (Continued) Signed (signature on file) Darshan Iniguez MD 02/22/242036 Normal [facility] XR CHEST 2 Von 12-24-2022 [...] by: EDDIE OROSCO Date: 2022-12-24 16:25 Normal [facility] MAMM SCREEN 3D DALE CADon 10-20-2022 MG MAMM SCREEN 3D DALE CAD Patient: DEEPA SEARS Exam Date: 10/20/2022 : 1960 Gender:F Ordering : DR REAL KIMBALL . Admission #: [id number] Family : Order #: [id number] CLICK HERE TO VIEW EXAM RADIOLOGY REPORT [...] breast cancer at age 70. LOCATION: [facility] BREAST COMPOSITION: Heterogeneously dense,which may obscure [...] MD on 10/20/2022 at 12:00 Normal [facility] Covid-19 PCR (CVDTBH)on SARS-CoV-2 (COVID-19) RNA EMMANUEL+probe Ql (Unsp spec) Not detected Normal NOT DETECTED [facility] Comment on above: Result Comment: When [...] for this test is supported by the Grain Cleaner of Health and Human Service's declaration that [...] used). Performed By: #### C VDTBH #### [facility] [address] [place] [address] Dr. Cindi Iniguez INFLUENZA A AND B AGon 10-08 [facility] SEE BELOW Normal [facility] Comment on above: Result Comment: Nega tive for Flu A protein angiten. Infection due to Flu A cannot be ruled out. Flu A angiten in the sample may be below the detection limit of the test. Performed By: #### C MP, BNP, HSTROPN #### [facility] [address] [place] [address] Dr. Cindi Inigue[facility] SEE BELOW Normal [facility] Comment on above: Result Comment: Nega tive for Flu B protein antigen. Infection due to Flu B cannot be ruled out. Flu B antigen in the sample may be below the detection limit of the test. Performed By: #### C MP, BNP, HSTROPN #### [facility] [address] [place] [address] Dr. Cindi Iniguez INFLUENZA A AG Negative Normal NEGATIVE SEE COMMENT [facility] Comment on above: Performed By: #### C MP, BNP, HSTROPN #### [facility] [address] [address] [address] Cindi Iniguez INFLUENZA B AG Negative Normal NEGATIVE SEE COMMENT [facility] Comment on above: Performed By: #### C MP, BNP, HSTROPN #### [facility] [address] [place] [address] Dr. Cindi Iniguez Covid-19 PCR (CVDTB)on 07-09 SARS-CoV-2 (COVID-19) RNA EMMANUEL+probe Ql (Unsp spec) Not detected Normal NOT DETECTED [facility] Comment on above: Result Comment: When [...] for this test is supported by the [place] of Health and Human Service's declaration that [...] used). Performed By: #### C VDTBH #### [facility] [address] [place] [address] Dr. Cindi Iniguez BNPon 04-14-2022 Natriuretic peptide B (Bld) [Mass/Vol] 583.0 pg/mL Normal <=900.0 [facility] Comment on above: Performed By: #### C MP, BNP, HSTROPN #### [facility] [address] [place] [address] Dr. Cindi Iniguez CBC AUTO DIFFon 04-14-2022 BASO # 0.0 103/ul Normal 0.0-0.1 [facility] Comment on above: Performed By: #### C BC #### [facility] [address] [place] [address] Dr. Cindi Iniguez Basophils/100 WBC (Bld) 0.2 % Normal 0.2-2.0 [facility] Comment on above: Performed By: #### C BC #### [facility] [address] [place] [address] Dr. Cindi Iniguez EO # 0.0 103/ul Normal 0.0-0.7 [facility] Comment on above: Performed By: #### C BC #### [facility] [address] [place] [address] Dr. Cindi Iniguez Eosinophils/100 WBC (Bld) 0.3 % Critically low 0.9-7.0 [facility] Comment on above: Performed By: #### C BC #### [facility] [address] [place] [address] Dr. Cindi Iniguez Erythrocyte distribution width (RBC) [Ratio] 12.6 % Normal 11.0-15.0 [facility] Comment on above: Performed By: #### C BC #### [facility] [address] [place] [address] Dr. Cindi Iniguez Hematocrit (Bld) [Volume fraction] 43.3 % Normal 36.0-48.0 [facility] Comment on above: Performed By: #### C BC #### [facility] [address] [place] [address] Dr. Cindi Iniguez Hemoglobin (Bld) [Mass/Vol] 14.5 g/dL Normal 12.0-16.0 [facility] Comment on above: Performed By: #### C BC #### [facility] [address] [place] [address] Dr. Cindi Iniguez IG # 0.07 10e3/ul Critically high 0.00-0.03 [facility] Comment on above: Performed By: #### C BC #### [facility] [address] [place] [address] Dr. Cindi Iniguez IG % 0.5 % Normal 0.0-0.5 [facility] Comment on above: Performed By: #### C BC #### [facility] [address] [place] [address] Dr. Cindi Iniguez LYMPH # 1.8 103/ul Normal 1.2-3.8 [facility] Comment on above: Performed By: #### C BC #### [facility] [address] [place] [address] Dr. Cindi Iniguez Lymphocytes/100 WBC (Bld) 12.9 % Critically low 20.5-60.0 [facility] Comment on above: Performed By: #### C BC #### [facility] [address] [place] [address] Dr. Cindi Iniguez MANUAL DIFF REQ NO Normal [facility] Comment on above: Performed By: #### C BC #### [facility] [address] [place] [address] Dr. Cindi Iniguez MCH (RBC) [Entitic mass] 30.5 pg Normal 26.7-34.0 [facility] Comment on above: Performed By: #### C BC #### [facility] [address] [place] [address] Dr. Cindi Iniguez MCHC (RBC) [Mass/Vol] 33.5 g/dL Normal 29.9-35.2 [facility] Comment on above: Performed By: #### C BC #### [facility] [address] [place] [address] Dr. Cindi Iniguez MCV (RBC) [Entitic vol] 91.0 fL Normal 81.0-99.0 [facility] Comment on above: Performed By: #### C BC #### [facility] [address] [place] [address] Dr. Cindi Iniguez MONO # 1.0 103/ul Critically high 0.3-0.8 [facility] Comment on above: Performed By: #### C BC #### [facility] [address] [place] [address] Dr. Cindi Iniguez Monocytes/100 WBC (Bld) 7.1 % Normal 1.7-12.0 [facility] Comment on above: Performed By: #### C BC #### [facility] [address] [place] [address] Dr. Cindi Iniguez NEUT # 10.9 103/ul Critically high 1.4-6.5 [facility] Comment on above: Performed By: #### C BC #### [facility] [address] [place] [address] Dr. Cindi Iniguez Neutrophils/100 WBC (Bld) 79.0 % Critically high 43.0-75.0 [facility] Comment on above: Performed By: #### C BC #### [facility] [address] [place] [address] Dr. Cindi Iniguez Platelet mean volume (Bld) [Entitic vol] 8.8 fL Critically low 9.5-13.5 [facility] Comment on above: Performed By: #### C BC #### [facility] [address] [place] [address] Dr. Cindi Iniguez PLT 207 103/ul Normal 150-450 [facility] Comment on above: Performed By: #### C BC #### [facility] [address] [place] [address] Dr. Cindi Iniguez RBC 4.76 106/ul Normal 4.20-5.40 [facility] Comment on above: Performed By: #### C BC #### [facility] [address] [place] [address] Dr. Cindi Iniguez WBC 13.8 103/ul Critically high 4.0-11.0 [facility] Comment on above: Performed By: #### C BC #### [facility] [address] [place] [address] Dr. Cindi Iniguez CTA CHEST WO W [...] by: HERNÁN BAR Date: 2022-04-14 16:28 Normal [facility] PROF 14(COMP METB)on 022 Albumin [Mass/Vol] 3.5 g/dL Normal 3.4-5.0 [facility] Comment on above: Performed By: #### C MP, BNP, HSTROPN #### [facility] [address] [place] [address] Dr. Cindi Iniguez Albumin/Globulin [Mass ratio] 1.0 {ratio} Normal [facility] Comment on above: Performed By: #### C MP, BNP, HSTROPN #### [facility] [address] [address] [address] Cindi Iniguez ALP [Catalytic activity/Vol] 64 U/L Normal 46-116 [facility] Comment on above: Performed By: #### C MP, BNP, HSTROPN #### [facility] [address] [address] [address] Cindi Iniguez ALT [Catalytic activity/Vol] 44 U/L Normal 14-59 [facility] Comment on above: Performed By: #### C MP, BNP, HSTROPN #### [facility] [address] [address] [address] Cindi Iniguez Anion gap [Moles/Vol] 12.5 mmol/L Normal [facility] Comment on above: Performed By: #### C MP, BNP, HSTROPN #### [facility] [address] [address] [address] Cindi Iniguez AST [Catalytic activity/Vol] 21 U/L Normal 15-37 [facility] Comment on above: Performed By: #### C MP, BNP, HSTROPN #### [facility] [address] [address] [address] Cindi Iniguez Bilirubin [Mass/Vol] 0.3 mg/dL Normal 0.2-1.0 [facility] Comment on above: Performed By: #### C MP, BNP, HSTROPN #### [facility] [address] [address] [address] Cindi Iniguez Calcium [Mass/Vol] 9.1 mg/dL Normal 8.5-10.1 [facility] Comment on above: Performed By: #### C MP, BNP, HSTROPN #### [facility] [address] [place] [address] Dr. Cindi Iniguez Chloride [Moles/Vol] 97 mmol/L Critically low 98-107 [facility] Comment on above: Performed By: #### C MP, BNP, HSTROPN #### [facility] [address] [place] [address] Dr. Cindi Iniguez CO2 [Moles/Vol] 29.8 mmol/L Normal 21.0-32.0 The [facility] Comment on above: Performed By: #### C MP, BNP, HSTROPN #### [facility] [address] [place] [address] Dr. Cindi Iniguez Creatinine [Mass/Vol] 1.06 mg/dL Critically high 0.55-1.02 [facility] Comment on above: Performed By: #### C MP, BNP, HSTROPN #### [facility] [address] [place] [address] Dr. Cindi Iniguez EGFR-AF SURINAMESE >60 Normal >=60 The [facility] Comment on above: Performed By: #### C MP, BNP, HSTROPN #### [facility] [address] [place] [address] Dr. Cindi Iniguez EGFR-NON AF SURINAMESE 53 mL/min/1.73m2 Critically low >=60 [facility] Comment on above: Performed By: #### C MP, BNP, HSTROPN #### [facility] [address] [place] [address] Dr. Cindi Iniguez Globulin (S) [Mass/Vol] 3.6 g/dL Normal [facility] Comment on above: Performed By: #### C MP, BNP, HSTROPN #### [facility] [address] [place] [address] Dr. Cindi Iniguez Glucose [Mass/Vol] 109 mg/dL Critically high 74-106 [facility] Comment on above: Performed By: #### C MP, BNP, HSTROPN #### [facility] [address] [place] [address] Dr. Cindi Iniguez Potassium [Moles/Vol] 4.3 mmol/L Normal 3.5-5.1 [facility] Comment on above: Performed By: #### C MP, BNP, HSTROPN #### [facility] [address] [place] [address] Dr. Cindi Iniguez Protein [Mass/Vol] 7.1 g/dL Normal 6.4-8.2 [facility] Comment on above: Performed By: #### C MP, BNP, HSTROPN #### [facility] [address] [place] [address] Dr. Cindi Iniguez Sodium [Moles/Vol] 135 mmol/L Critically low 136-145 [facility] Comment on above: Performed By: #### C MP, BNP, HSTROPN #### [facility] [address] [place] [address] Dr. Cindi Iniguez Urea nitrogen [Mass/Vol] 17.0 mg/dL Normal 7.0-18.0 [facility] Comment on above: Performed By: #### C MP, BNP, HSTROPN #### [facility] [address] [place] [address] Dr. Cindi Iniguez Urea nitrogen/Creatinine [Mass ratio] 16.0 mg/mg Normal [facility] Comment on above: Performed By: #### C MP, BNP, HSTROPN #### [facility] [address] [place] [address] Dr. Cindi Iniguez PROTIMEon 04-14-2022 INR Coag (PPP) [Relative time] 0.93 {INR} Normal [facility] Comment on above: Performed By: #### P TT, PT #### [facility] [address] [place] [address] Dr. Cindi Iniguez INR GUIDELINES SEE BELOW Normal [facility] Comment on above: Result Comment: MESSI RED INR: 2.0 - 3.0 CONDITIONS NOT LISTED BELOW 2.5 - 3.5 FOR PROSTHETIC HEART VALVE REPLACEMENT 2.5 - 3.5 RECURRENT THROMBOSIS Performed By: #### P TT, PT #### [facility] [address] [place] [address] Dr. Cindi Iniguez PT Coag (PPP) [Time] 10.1 s Normal 9.0-11.6 [facility] Comment on above: Performed By: #### P TT, PT #### [facility] [address] [place] [address] Dr. Cindi Iniguez PTTon 04-14-2022 aPTT Coag (Bld) [Time] 23.8 s Normal 22.3-36.2 [facility] Comment on above: Performed By: #### C MP, BNP, HSTROPN #### [facility] [address] [place] [address] Dr. Cindi Inigeuz TROPONIN, HIGH SENSITIVITYon 04-14-2022 HSTROP 27.4 pg/mL Normal 4.0-51.3 [facility] Comment on above: Result Comment: CUT- OFF POINTS HAVE BEEN ESTABLISHED BASED ON THE FOURTH UNIVERSAL DEFINITIONS OF MYOCARDIAL INFARCTION. THE UPPER REFERENCE LIMIT (URL) OF TROPONIN, DEFINED THE 99TH PERCENTILE OF cTnI DISTRIBUTION IN A REFERENCE POPULATION, HAS BEEN CONFIRMED THE DECISION THRESHOLD FOR MO DIAGNOSIS. Performed By: #### C MP, BNP, HSTROPN #### [facility] [address] [place] [address] Dr. Cindi Iniguez [facility]-08 SARS-CoV-2 (COVID-19) RNA EMMANUEL+probe Ql (Unsp spec) Detected Critically abnormal NOT DETECTED [facility] Comment on above: Result Comment: This test is not yet approved or cleared by the [place] FDA. When there are no FDA-approved or cleared tests available, and other criteria are met, FDA can make tests available under an emergency access mechanism called an Emergency Use Authorization (EUA). The EUA for this test is supported by the Grain Cleaner of Health and Human Service's (HHS's) declaration [...] By: #### C MP, BNP, HSTROPN #### [facility] [address] [place] [address] Dr. Cindi Iniguez Vital Signs Date Time Vital Sign Value Performing Clinician Faci lity 10-22-2023 15:23-0500 Body mass index (BMI) [Ratio] 36.39 kg/m2 John Pineda TAX COLLECTOR-HUMANE AGENT Work Phone: [facility] [employer] [facility] 10-22-2023 15:23-0500 Body weight 96.16 kg Johnomari Pineda TAX COLLECTOR-HUMANE AGENT Work Phone: [facility] Encounters Encounter Date Encounter Type Care Provider Facility Start: 07-13-2024 End: 07-13-2024 Refill Nubia Nogueira DO Work Phone: [facility] General [facility] Start: 03-11-2024 End: 03-11-2024 ambulatory BARBARA [facility] Start: 02-19-2024 End: 02-19-2024 ambulatory Nubia Nogueira [facility] Work Phone: Start: 02-19-2024 End: 02-19-2024 Departed Referred DO Nubia Nogueira Work Phone: [facility] Start: 11-06-2023 End: 11-06-2023 Evaluation and management of inpatient CALLY ARREAGA [facility] Start: 11-05-2023 End: 11-06-2023 Evaluation and management of inpatient NUBIA NOGUEIRA [facility] Start: 10-22-2023 ambulatory JOHN PINEDA [facility] Start: 10-22-2023 End: 10-22-2023 Office outpatient new 30 minutes John Pineda TAX COLLECTOR-HUMANE AGENT Work Phone: [facility] Phys[facility] General Surgery Comment on above: Family [...] Phone: Start: 10-11-2018 Colonoscopy John Tucker wilton TAX COLLECTOR-HUMANE AGENT Work Phone: Plan of Treatment Date Care Activity Detail Author Start: 11-04-2028 Screening for malign ant neoplasm of colon Colonoscopy [facility] Start: 11-04-2024 Adult BMI Screening Adult BMI Screen ing [facility] Start: 11-04-2024 Tobacco Screening Tobacco Screening [facility] Start: 10-22-2024 Adult BMI Screening Adult BMI Screen ing [facility] Start: 10-22-2024 Tobacco Screening Tobacco Screening [facility] Start: 05-08-2024 COVID-19 Vaccine ( season) COVID-19 Vaccine () [facility] Start: 05-08-2024 Influenza vaccination Influenza Vacc ine [facility] Start: 11-05-2023 End: 11-05-2023 Admission to same day surgery center 11/05/2023 11:00 AM EST - 11/05/2023 11:30 AM EST Surgery [facility] Surgery [address] [place] [address] Nubia Nogueira, DO [address] [place] [address] [phone] COLONOSCOPY DIAGNOSTIC / SCREENING [92056 (CPT )] [facility] Comment on above: COLONOSCOPY DIAGNOST IC / SCREENING [19510 (CPT )] Start: 11-05-2023 End: 11-05-2023 Colonoscopy flx dx w/collj spec when pfrmd COLONOSCOPY DIAGNOSTIC / SCREENING Family history of colon cancer 11/05/2023 11:00 AM [facility] Start: 11-05-2023 Subsequent hospital visit by physician 11/05/2023 11:00 AM EST Hospital Encounter [facility] - Surgery [address] [place] [id number] Nubia Nogueira, DO [address] [place] [address] [phone] [facility] Start: 10-29-2023 End: 10-29-2023 ambulatory 10/29/2023 2:10 PM EST Support Visit [facility] - Pre Admit [address] [place] [address] [facility] Pre Admit Start: 10-11-2023 Screening for malign ant neoplasm of colon Colonoscopy [facility] Start: 2010 Administration of varicella zoster vaccine Zoster (Shingles) Vaccine (1 of 2) [facility] Start: 1979 DTaP,Tdap and Td Vac cines (1 - Tdap) DTaP,Tdap and Td Vaccines (1 - Tdap) [facility] Start: 1978 Adult BMI Follow Up Plan Adult BMI Follow Up Plan [facility] Start: 1972 Depression Screening Depression Scre ed [facility] End: 10-22-2024 Colonoscopy Colonoscopy GI Routine Family history of malignant neoplasm of colon 1 Occurrences starting 10/22/2023 until 10/22/[facility] Comment on above: 1 Occurrences starti ng 10/22/2023 until 10/22/2024 Immunizations Immunization Date Immunization Notes Care Provider Keny mata 06-17-2023 influenza virus vaccine, unspecified formulation Nubia Kb DO Work Phone: [facility] Payers Date Payer Category Payer Self-pay 2023 Managed Care Other (unspecified) [facility] [id number] 2023 Private Health Insurance [facility] CHOICE PLUS [id number] 2023-Present [phone] [address] [address] [place] [address] [id number] 1960 Unknown [id number] 2.16.840.1.444083.3.579. 2.593 1960 Unknown [id number] 2.16.840.1.396267.3.579. 2.593 1960 Unknown [id number] 2.16.840.1.682396.3.579. 2.593 1960 Unknown [id number] 2.16.840.1.410426.3.579. 2.593 1960 Unknown [id number] 2.16.840.1.743425.3.579. 2.593 1960 Unknown [id number] 2.16.840.1.758091.3.579. 2.593 1960 Unknown [id number] 2.16.840.1.391404.3.579. 2.593 1960 Unknown [id number] 2.16.840.1.105756.3.579. 2.1286 1960 Unknown [id number] 2.16.840.1.156174.3.579. 2.1286 1960 Unknown [id number] 2.16.840.1.550249.3.579. 2.1286 1960 Unknown [id number] 2.16.840.1.206135.3.579. 2.1286 1960 Unknown [id number] 2.16.840.1.848363.3.579. 2.1286 1959 Private Health Insurance [id number] 1959 Self-pay [id number] Social History Date Type Detail Facility Start: 12-31-2022 End: 11-05-2023 Tobacco smoking status [facility] Ex-smoker [facility] Start: 08-28-1976 End: 08-28-1998 History of tobacco use Current smoker [facility] Start: 08-28-1976 End: 08-28-1998 History of tobacco use Cigarette Smoker [facility] Start: 12-31-2022 End: 11-05-2023 Tobacco use and exposure Smokeless tobacco non-user [facility] Start: 10-22-2023 End: 11-05-2023 Alcohol intake Current drinker of alcohol (finding) [facility] Start: 10-18-2020 End: 12-30-2021 History of Social function [facility] Work Phone: Start: 10-18-2020 End: 12-30-2021 Alcohol Use Disorder Identification Test - Consumption [AUDIT-C] [facility] Work Phone: How often to you hav e a drink containing alcohol? Monthly or less [facility] Work Phone: How many standard dr inks containing alcohol do you have on a typical day? 5 or 6 [facility] How often do you hav e 6 or more drinks on 1 occasion? Less than monthly [facility] Childcare Unknown [facility] Start: 09-28-2018 Alcohol Comment social [facility] Start: 1960 Sex Assigned At Not on file P [facility] Start: 1960 Sex Assigned At Female F [facility] Start: 09-22-2018 Sex Female (finding) [facility] Clinical Notes 10-22-2023 to 03-16-2024 John Pineda, TAX COLLECTOR-HUMANE AGENT - 10/22/2023 3:30 PM EST Note Date [...] with any additional questions. Agatha Vanegas CPhT [facility] 03/22/24 12:16 PM [facility] 03-16-2024 Note Spoke to pt, she is suppose to receive the shipment on 03/21. I will follow-up with her on 03/22 to make sure she doesn't have any further questions. Jerardo Quintero, PharmD, BCACP 03/18/24 11:27 AM [facility] [phone] [facility] 03-16-2024 Note High copay. Rx at [facility], they can get copay card for pt [...] BEA 03/17/24 2:15 PM [facility] [phone] [facility] 03-16-2024 Note Prior Authorization for [facility] has been approved 03/16/2024-04/15/2024. Case ID/Authorization Number: [id number] Urbano Mueller , [facility] 03/17/24 1:39 PM [facility] 03-16-2024 Note Specialty Pharmacy N ote: Diana Supervising Physician & Clinic:?? BILLY Mills is a 63 y.o. year old female patient with PMH of: Recurrent C. Diff GERD Allergies Allergen Reactions Penicillins Swelling Sulfa (Sulfonamide Antibiotics) Swelling Lips swell PharmD consulted for evaluation of [facility] for treatment of recurrent C. diff (Diagnosis [...] BEA 03/16/24 11:48 AM [facility] [phone] [facility] 03-11-2024 Note Subjective Patient ID: Deepa [...] past 36 hour(s)). No follow-ups on file. [facility] 10-22-2023 History of Present illness Narrative [...] 10/11/2018 Performed by Nubia Nogueira DO at [facility] ESOPHAGOGASTRODUODENOSCOPY N/A 07/04/2021 Performed by Nubia Nogueira DO at [facility] HYSTERECTOMY 2008 OOPHORECTOMY Allergies Allergen Reactions [...] mouth daily., Disp: , Rfl: peg 3350-sod sulf,uuhn-jse-gfj 178.7-7.3-0.5 gram recon soln, Take 1 kit [...] patient/family/caregiver Referring and communicating with other health director of health care marketing Family history of malignant neoplasm of colon [Z80.0] BETTY SMITH [facility] General Surgery [place] This note was created with the assistance of a speech recognition program. While intending to generate a timely document that accurately reflects the content of the visit, no guarantee can be provided that every grammatical or spelling mistake has been or will be identified or corrected. Thank you for your understanding. BETTY Smith 10/22/23 0820 documented in this encounter [facility] Evaluation note Diagnosis Family history of malignant neoplasm of colon- Primary Family history of colon cancer Family history of malignant neoplasm of gastrointestinal tract documented in this encounter [facility] assessment information available [facility] Work Phone: InstructionsNot on filedocumented in this [...] and content) DATE CREATED AUTHOR [facility]/28/2022 [facility] DATE CREATED AUTHOR AUTHOR'S ORGANIZ ATION 10/28/2023 [facility] DATE CREATED AUTHOR AUTHOR'S ORGANIZ ATION 11/07/2023 [facility] DATE CREATED AUTHOR AUTHOR'S ORGANIZ ATION 02/20/2024 [facility] DATE CREATED AUTHOR AUTHOR'S ORGANIZ ATION 02/22/2024 [facility] DATE CREATED AUTHOR AUTHOR'S ORGANIZ ATION 03/28/2024 [facility] Reason for Visit (unrecogniz ed section and content) Reason Comments Colon Cancer Screening 5 year recall, fa [facility] history of colon cancer Reason Comments Med Refill Care Teams (unrecognized sec tion and content) 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 [facility] [employer] [facility]. provides no warranty or guarantee of the accuracy or completeness of information in this document.
== END 2024-10-10 16:15 | disposition home or self-care (01) ==
LOC: LAB 16:14
PROVIDERS: PCP Family Medicine; Visit Provider Family Medicine
DX: R05.3 Chronic cough (principal); R05.8 Other specified cough
CPT/HCPCS: 87070; 87205

== ENCOUNTER 2024-10-14 07:52 | Day surgery (SDC) | payer OTHER, SELFPAY ==
--- NOTE | 2024-10-14 07:59 | MR_ITS ---
The [address] [address] Patient Name: DEEPA ZAYAS MRN: [id number] date: 1960 Sex: F Assigned Patient Location: MRI Current Patient Location: MRI Accession/Order Number: [id number] Exam Date: 10/14/2024 10:00 Report Date: 10/14/2024 15:06 At the request of: REAL BAUTISTA Procedure: MR shoulder RT w con EXAM: MR shoulder RT w con REASON FOR EXAM: Shoulder Impingement. TECHNIQUE: Multiplanar, multisequence imaging of the right shoulder was performed following the uneventful intra-articular administration of contrast COMPARISON: Radiographs 09/22/2024. FINDINGS: The acromioclavicular joint is congruent. Mild joint space narrowing capsular hypertrophy. Mild broad-based thickening the coracoacromial ligament. Contrast equivalent fluid within the subacromial subdeltoid bursa is consistent with a full-thickness rotator cuff tear. Superimposed on tendinosis, there is full-thickness tearing of the central cuff. Few intact fibers of the far anterior margin the supraspinatus and the far posterior margin the infraspinatus tendons appear intact. Torn fibers retracted to the glenoid. The teres minor tendon is intact. The subscapularis tendon is intact. The extra capsular biceps tendon is within the bicipital groove. Minimal thickening of the intracapsular biceps tendon. The humerus is slightly high riding on the glenoid. Low to intermediate grade chondrosis of the glenohumeral cartilage. Near circumferential labral degeneration. Synovial thickening is present consistent with synovitis. No intra-articular body. The bone marrow signal is without fracture. The quadrilateral space is patent. No axillary lymphadenopathy. MR/MR shoulder RT w con IMPRESSION: 1. Full-thickness, near fullwidth tears of the supraspinatus and infraspinatus tendons with proximal retraction of torn fibers to the glenoid. 2. Biceps tendinosis without tear. 3. Mild AC joint osteoarthritis. 4. Mild glenohumeral osteoarthritis with near circumferential labral degeneration Electronically authenticated by: GISELLE LAND Date: 10/14/2024 15:06
--- OUTSIDE RECORDS SUMMARY | 2024-10-14 08:00 | XMS_ITS | CCD ---
Author Organization [facility] CliniSymd Care Team Providers Care Member Certification Manager Name Role Phone AVERY MCKNIGHT Attending Unavailable [...] HOY ., DR NOBLE Primary Care Unavailable BOWLING GREEN, DR CALLY Aguila Consulting Unavailable HOY ., DR NOBLE Consulting Unavailable HOY ., DR NOBLE Attending Unavailable HOY ., DR NOBLE Admyordan Unavailable HOY ., DR NOBLE Primary Care Unavailable CASANDRA ALLEN Attending Unavailable CASANDRA ALLEN Admitting Unavailable HOY ., DR NOBLE Primary Care Unavailable CASANDRA ALLEN Consulting Unavailable Real Kimball MD Primary Care Provider JOHN PINEDA Attending Unavailable HOY, REAL M [...] Unavailable Real Kimball MD Primary Care Provider [phone] Allergies Allergy Classification Reported Allergen(s) Allergy Type Date of Onset Reaction(s) Facility (1 source) Penicillin Drug Allergy [facility] Repository (1 source) Sulfonamides (Antibiotic) Drug allergy (disorder) [facility] Rep[facility] (5 sources) Penicillins; Translations: [PENICILLINS] Propensity to adverse reactions to drug 1 [facility] (4 sources) sulfabenzamide; Translations: [SULFABENZAMIDE] Drug Allergy 9 [facility] (5 sources) Sulfonamides (Antibiotic); Translations: [SULFA (SULFONAMIDE ANTIBIOTICS)] Propensity to adverse reactions to drug 9 [facility] Medications Current Medications Medication Drug Class(es) Dates Sig (Normalized) Sig (Original) lactobacillus acidophilus [id number] unt / pectin 100 mg oral tablet [...] te Episodic/Chronic Other aftercare (1 source) Other analytical tech (current) drug therapy; Translations: [OTH FITTING ROOM SUPERVISOR CURRENT DRUG THERAPY] Onset: 04-15-2022 Episodic Other [...] turned in two business days before hand. [facility] 36 Patient calling in to ask [...] would have started the Vowst on 03/20/24. [facility] 36on 03-17-2024 36 Patient called and [...] dosage of Vowst as well. Please advise. [facility] Documentationon 03-16-2024 Documentation [id number] Deepa Sears 1960 F Date Provider Department Center 03/16/2024 JERARDO FERNANDEZ None No family history on file Reason for Visit and Comments: Specialty Pharmacy Note: Vowst [Other] [facility] 36on 03-15-2024 36 Patient calling to [...] needs to be done. Please advise Normal [facility] Telephoneon 03-15-2024 Telephone [id number] Deepa Sears 1960 F Date Provider Department Center 03/15/2024 [id number], BETH [facility] No family history on file Normal [facility] Office Visiton 03-11-2024 Follow-up visit [id number] Deepa Sears 1960 Date Provider Department Center 03/11/2024 Sachin-BARBARA LICEA [facility] No family history on file Level of Service:[id number] ID OFFICE/OUTPATIENT NEW LOW MDM 30 MINUTES Reason for Visit and Comments: New Patient [632] GERD [[id number]] - C Diff Vowst candidate Normal [facility] [place] 02-19-2024 L Specimen: [id number] Received: 02/19/24 Status: THOMAS Sy Num: [id number] Spec Type: Surgical Subm Dr: Nubia Nogueira DO Tissues: A Stomach - Biopsy/Polyp (ANTRUM) B Esophagus Biopsy (GE JUNCTION) Procedures: HE/4, Gross/Micro L4/2 Age/ Patient Sex Location Account Attending Physician Deepa Sears 63/F [place]ELL [id number] Nubia Nogueira DO SPEC NUM: [id number] RECD: 02/19/24 STATUS: THOMAS SY NUM: [id number] PREETI: 02/19/[address]: Nubia Nogueira DO [...] Mild gastritis and esophagitis, hiatal hernia Specimen: [id number] Received: 02/19/24 Status: THOMAS Sy Num: [id number] Spec Type: Surgical Subm Dr: Nubia Nogueira DO Tissues: A Stomach - Biopsy/Polyp (ANTRUM) B Esophagus Biopsy (GE JUNCTION) Procedures: JANETDavid, Gross/Micro L4/2 Patient: Deepa Sears [id number] (Continued) Specimen: [id number] Received: 02/19/24 (Continued) Signed (signature on file) Darshan Iniguez MD 02/22/242036 Specimen: [id number] Received: 02/19/24 Status: THOMAS Tinocostephan Num: [id number] Spec Type: Surgical Subm Dr: Nubia Nogueira DO Tissues: A Stomach - Biopsy/Polyp (ANTRUM) B Esophagus Biopsy (GE JUNCTION) Procedures: HE/David, Gross/Micro L4/2 Patient: Deepa Sears [id number] (Continued) Specimen: [id number] Received: 02/19/24 (Continued) Gross Description Received are [...] x 0.1 cm, entirely submitted in B1. [facility] Codes 77336O1 Specimen: [id number] Received: 02/19/24 Status: THOMAS Tinocostephan Num: [id number] Spec Type: Surgical Subm Dr: Nubia Nogueira DO Tissues: A Stomach - Biopsy/Polyp (ANTRUM) B Esophagus Biopsy (GE JUNCTION) Procedures: JANET/David, Gross/Micro L4/2 Patient: Deepa Sears [id number] (Continued) Signed (signature on file) Darshan Iniguez MD 02/22/242036 Normal [facility] XR CHEST 2 Von [...] by: EDDIE OROSCO Date: 2022-12-24 16:25 Normal [facility] MAMM SCREEN 3D DALE CADon 10-20-2022 MG MAMM SCREEN 3D DALE CAD Patient: DEEPA SEARS Exam Date: 10/20/2022 : 1960 Gender:F Ordering : DR REAL KIMBALL . Admission #: [id number] Family : Order #: [id number] CLICK HERE TO VIEW EXAM RADIOLOGY REPORT [...] cancer at age 70. LOCATION: [facility] BREAST COMPOSITION: Heterogeneously dense,which may obscure small [...] on 10/20/2022 at 12:00 Normal [facility] Covid-19 PCR (CVDTBH)on SARS-CoV-2 (COVID-19) RNA EMMANUEL+probe Ql (Unsp spec) Not detected Normal NOT DETECTED [facility] Comment on above: Result Comment: When diagnostic [...] for this test is supported by the [employer] Operator of Health and Human Service's declaration [...] Performed By: #### C VDTBH #### [facility] [address] [place] [address] Dr. Cindi Iniguez INFLUENZA A AND B AGon 10-08 [facility] SEE BELOW Normal [facility] Comment on above: Result Comment: Nega tive for Flu A protein angiten. Infection due to Flu A cannot be ruled out. Flu A angiten in the sample may be below the detection limit of the test. Performed By: #### C MP, BNP, HSTROPN #### [facility] [address] [place] [address] Dr. [facility] Normal [facility] Comment on above: Result Comment: Nega tive for Flu B protein antigen. Infection due to Flu B cannot be ruled out. Flu B antigen in the sample may be below the detection limit of the test. Performed By: #### C MP, BNP, HSTROPN #### [facility] [address] [place] [address] Dr. Cindi Iniguez INFLUENZA A AG Negative Normal NEGATIVE SEE COMMENT [facility] Comment on above: Performed By: #### C MP, BNP, HSTROPN #### [facility] [address] [address] [address] Cindi Ingiuez INFLUENZA B AG Negative Normal NEGATIVE SEE COMMENT [facility] Comment on above: Performed By: #### C MP, BNP, HSTROPN #### [facility] [address] [place] [address] Dr. Cindi Iniguez Covid-19 PCR (CVDTB)on 07-09 SARS-CoV-2 (COVID-19) RNA EMMANUEL+probe Ql (Unsp spec) Not detected Normal NOT DETECTED [facility] Comment on above: Result Comment: When diagnostic [...] for this test is supported by the [place] of Health and Human Service's declaration that [...] Performed By: #### C VDTBH #### [facility] [address] [place] [address] Dr. Cindi Iniguez BNPon 04-14-2022 Natriuretic peptide B (Bld) [Mass/Vol] 583.0 pg/mL Normal <=900.0 [facility] Comment on above: Performed By: #### C MP, BNP, HSTROPN #### [facility] [address] [place] [address] Dr. Cindi Iniguez CBC AUTO DIFFon 04-14-2022 BASO # 0.0 103/ul Normal 0.0-0.1 [facility] Comment on above: Performed By: #### C BC #### [facility] [address] [place] [address] Dr. Cindi Iniguez Basophils/100 WBC (Bld) 0.2 % Normal 0.2-2.0 [facility] Comment on above: Performed By: #### C BC #### [facility] [address] [place] [address] Dr. Cindi Iniguez EO # 0.0 103/ul Normal 0.0-0.7 [facility] Comment on above: Performed By: #### C BC #### [facility] [address] [place] [address] Dr. Cindi Iniguez Eosinophils/100 WBC (Bld) 0.3 % Critically low 0.9-7.0 [facility] Comment on above: Performed By: #### C BC #### [facility] [address] [place] [address] Dr. Cindi Iniguez Erythrocyte distribution width (RBC) [Ratio] 12.6 % Normal 11.0-15.0 [facility] Comment on above: Performed By: #### C BC #### [facility] [address] [place] [address] Dr. Cindi Iniguez Hematocrit (Bld) [Volume fraction] 43.3 % Normal 36.0-48.0 [facility] Comment on above: Performed By: #### C BC #### [facility] [address] [place] [address] Dr. Cindi Iniguez Hemoglobin (Bld) [Mass/Vol] 14.5 g/dL Normal 12.0-16.0 [facility] Comment on above: Performed By: #### C BC #### [facility] [address] [place] [address] Dr. Cindi Iniguez IG # 0.07 10e3/ul Critically high 0.00-0.03 [facility] Comment on above: Performed By: #### C BC #### [facility] [address] [place] [address] Dr. Cindi Iniguez IG % 0.5 % Normal 0.0-0.5 [facility] Comment on above: Performed By: #### C BC #### [facility] [address] [place] [address] Dr. Cindi Iniguez LYMPH # 1.8 103/ul Normal 1.2-3.8 [facility] Comment on above: Performed By: #### C BC #### [facility] [address] [place] [address] Dr. Cindi Iniguez Lymphocytes/100 WBC (Bld) 12.9 % Critically low 20.5-60.0 [facility] Comment on above: Performed By: #### C BC #### [facility] [address] [place] [address] Dr. Cindi Iniguez MANUAL DIFF REQ NO Normal [facility] Comment on above: Performed By: #### C BC #### [facility] [address] [place] [address] Dr. Cindi Iniguez MCH (RBC) [Entitic mass] 30.5 pg Normal 26.7-34.0 [facility] Comment on above: Performed By: #### C BC #### [facility] [address] [place] [address] Dr. Cindi Iniguez MCHC (RBC) [Mass/Vol] 33.5 g/dL Normal 29.9-35.2 [facility] Comment on above: Performed By: #### C BC #### [facility] [address] [place] [address] Dr. Cindi Iniguez MCV (RBC) [Entitic vol] 91.0 fL Normal 81.0-99.0 [facility] Comment on above: Performed By: #### C BC #### [facility] [address] [place] [address] Dr. Cindi Iniguez MONO # 1.0 103/ul Critically high 0.3-0.8 [facility] Comment on above: Performed By: #### C BC #### [facility] [address] [place] [address] Dr. Cindi Iniguez Monocytes/100 WBC (Bld) 7.1 % Normal 1.7-12.0 [facility] Comment on above: Performed By: #### C BC #### [facility] [address] [place] [address] Dr. Cindi Iniguez NEUT # 10.9 103/ul Critically high 1.4-6.5 [facility] Comment on above: Performed By: #### C BC #### [facility] [address] [place] [address] Dr. Cindi Iniguez Neutrophils/100 WBC (Bld) 79.0 % Critically high 43.0-75.0 [facility] Comment on above: Performed By: #### C BC #### [facility] [address] [place] [address] Dr. Cindi Iniguez Platelet mean volume (Bld) [Entitic vol] 8.8 fL Critically low 9.5-13.5 [facility] Comment on above: Performed By: #### C BC #### [facility] [address] [place] [address] Dr. Cindi Iniguez PLT 207 103/ul Normal 150-450 [facility] Comment on above: Performed By: #### C BC #### [facility] [address] [place] [address] Dr. Cindi Iniguez RBC 4.76 106/ul Normal 4.20-5.40 [facility] Comment on above: Performed By: #### C BC #### [facility] [address] [place] [address] Dr. Cindi Iniguez WBC 13.8 103/ul Critically high 4.0-11.0 [facility] Comment on above: Performed By: #### C BC #### [facility] [address] [place] [address] Dr. Cindi Iniguez CTA CHEST WO W [...] by: HERNÁN BAR Date: 2022-04-14 16:28 Normal [facility] PROF 14(COMP METB)on 022 Albumin [Mass/Vol] 3.5 g/dL Normal 3.4-5.0 [facility] Comment on above: Performed By: #### C MP, BNP, HSTROPN #### [facility] [address] [place] [address] Dr. Cindi Iniguez Albumin/Globulin [Mass ratio] 1.0 {ratio} Normal [facility] Comment on above: Performed By: #### C MP, BNP, HSTROPN #### [facility] [address] [address] [address] Cindi Iniguez ALP [Catalytic activity/Vol] 64 U/L Normal 46-116 [facility] Comment on above: Performed By: #### C MP, BNP, HSTROPN #### [facility] [address] [address] [address] Cindi Iniguez ALT [Catalytic activity/Vol] 44 U/L Normal 14-59 [facility] Comment on above: Performed By: #### C MP, BNP, HSTROPN #### [facility] [address] [address] [address] Cindi Iniguez Anion gap [Moles/Vol] 12.5 mmol/L Normal [facility] Comment on above: Performed By: #### C MP, BNP, HSTROPN #### [facility] [address] [address] [address] Cindi Iniguez AST [Catalytic activity/Vol] 21 U/L Normal 15-37 [facility] Comment on above: Performed By: #### C MP, BNP, HSTROPN #### [facility] [address] [address] [address] Cindi Iniguez Bilirubin [Mass/Vol] 0.3 mg/dL Normal 0.2-1.0 [facility] Comment on above: Performed By: #### C MP, BNP, HSTROPN #### [facility] [address] [address] [address] Cindi Iniguez Calcium [Mass/Vol] 9.1 mg/dL Normal 8.5-10.1 [facility] Comment on above: Performed By: #### C MP, BNP, HSTROPN #### [facility] [address] [place] [address] Dr. Cindi Iniguez Chloride [Moles/Vol] 97 mmol/L Critically low 98-107 [facility] Comment on above: Performed By: #### C MP, BNP, HSTROPN #### [facility] [address] [place] [address] Dr. Cindi Iniguez CO2 [Moles/Vol] 29.8 mmol/L Normal 21.0-32.0 [facility] Comment on above: Performed By: #### C MP, BNP, HSTROPN #### [facility] [address] [place] [address] Dr. Cindi Iniguez Creatinine [Mass/Vol] 1.06 mg/dL Critically high 0.55-1.02 [facility] Comment on above: Performed By: #### C MP, BNP, HSTROPN #### [facility] [address] [place] [address] Dr. Cindi Iniguez EGFR-AF NAMIBIAN >60 Normal >=60 [facility] Comment on above: Performed By: #### C MP, BNP, HSTROPN #### [facility] [address] [place] [address] Dr. Cindi Iniguez EGFR-NON AF NAMIBIAN 53 mL/min/1.73m2 Critically low >=60 [facility] Comment on above: Performed By: #### C MP, BNP, HSTROPN #### [facility] [address] [place] [address] Dr. Cindi Iniguez Globulin (S) [Mass/Vol] 3.6 g/dL Normal [facility] Comment on above: Performed By: #### C MP, BNP, HSTROPN #### [facility] [address] [place] [address] Dr. Cindi Iniguez Glucose [Mass/Vol] 109 mg/dL Critically high 74-106 [facility] Comment on above: Performed By: #### C MP, BNP, HSTROPN #### [facility] [address] [place] [address] Dr. Cindi Iniguez Potassium [Moles/Vol] 4.3 mmol/L Normal 3.5-5.1 [facility] Comment on above: Performed By: #### C MP, BNP, HSTROPN #### [facility] [address] [place] [address] Dr. Cindi Iniguez Protein [Mass/Vol] 7.1 g/dL Normal 6.4-8.2 [facility] Comment on above: Performed By: #### C MP, BNP, HSTROPN #### [facility] [address] [place] [address] Dr. Cindi Iniguez Sodium [Moles/Vol] 135 mmol/L Critically low 136-145 [facility] [place] Comment on above: Performed By: #### C MP, BNP, HSTROPN #### [facility] [address] [place] [address] Dr. Cindi Iniguez Urea nitrogen [Mass/Vol] 17.0 mg/dL Normal 7.0-18.0 [facility] Comment on above: Performed By: #### C MP, BNP, HSTROPN #### [facility] [address] [place] [address] Dr. Cindi Iniguez Urea nitrogen/Creatinine [Mass ratio] 16.0 mg/mg Normal [facility] Comment on above: Performed By: #### C MP, BNP, HSTROPN #### [facility] [address] [place] [address] Dr. Cindi Iniguez PROTIMEon 04-14-2022 INR Coag (PPP) [Relative time] 0.93 {INR} Normal [facility] Comment on above: Performed By: #### P TT, PT #### [facility] [address] [place] [address] Dr. Cindi Iniguez INR GUIDELINES SEE BELOW Normal [facility] Comment on above: Result Comment: MESSI RED INR: 2.0 - 3.0 CONDITIONS NOT LISTED BELOW 2.5 - 3.5 FOR PROSTHETIC HEART VALVE REPLACEMENT 2.5 - 3.5 RECURRENT THROMBOSIS Performed By: #### P TT, PT #### [facility] [address] [place] [address] Dr. Cindi Iniguez PT Coag (PPP) [Time] 10.1 s Normal 9.0-11.6 [facility] Comment on above: Performed By: #### P TT, PT #### [facility] [address] [place] [address] Dr. Cindi Iniguez PTTon 04-14-2022 aPTT Coag (Bld) [Time] 23.8 s Normal 22.3-36.2 [facility] Comment on above: Performed By: #### C MP, BNP, HSTROPN #### [facility] [address] [place] [address] Dr. Cindi Iniguez TROPONIN, HIGH SENSITIVITYon 04-14-2022 HSTROP 27.4 pg/mL Normal 4.0-51.3 [facility] Comment on above: Result Comment: CUT- OFF POINTS HAVE BEEN ESTABLISHED BASED ON THE FOURTH UNIVERSAL DEFINITIONS OF MYOCARDIAL INFARCTION. THE UPPER REFERENCE LIMIT (URL) OF TROPONIN, DEFINED THE 99TH PERCENTILE OF cTnI DISTRIBUTION IN A REFERENCE POPULATION, HAS BEEN CONFIRMED THE DECISION THRESHOLD FOR [place] DIAGNOSIS. Performed By: #### C MP, BNP, HSTROPN #### [facility] [address] [place] [address] Dr. Cindi Iniguez [facility]08 SARS-CoV-2 (COVID-19) RNA EMMANUEL+probe Ql (Unsp spec) Detected Critically abnormal NOT DETECTED [facility] Comment on above: Result Comment: This test is not yet approved or cleared by the [place] FDA. When there are no FDA-approved or cleared tests available, and other criteria are met, FDA can make tests available under an emergency access mechanism called an Emergency Use Authorization (EUA). The EUA for this test is supported by the [place] Operator of Health and Human Service's (HHS's) [...] #### C MP, BNP, HSTROPN #### [facility] [address] [place] [address] Dr. Cindi Iniguez Vital Signs Date Time Vital Sign Value Performing Clinician Faci lity 10-22-2023 15:23-0500 Body mass index (BMI) [Ratio] 36.39 kg/m2 John Pineda ELECTRICAL SUPERVISOR-RECOVERY ENGINEER Work Phone: [facility] 10-22-2023 15:23-0500 Body weight 96.16 kg Johnomari Pineda ELECTRICAL SUPERVISOR-RECOVERY ENGINEER Work Phone: [facility] Encounters Encounter Date Encounter Type Care Provider Facility Start: 07-13-2024 End: 07-13-2024 Refill Nubia Nogueira DO Work Phone: [facility] Start: 03-11-2024 End: 03-11-2024 ambulatory [facility] Start: 02-19-2024 End: 02-19-2024 ambulatory Nubia Nogueira [facility] Work Phone: Start: 02-19-2024 End: 02-19-2024 Departed Referred DO Nubia Nogueira Work Phone: [facility] Start: 11-06-2023 End: 11-06-2023 Evaluation and management of inpatient CALLY ARREAGA [facility] Start: 11-05-2023 End: 11-06-2023 Evaluation and management of inpatient NUBIA NOGUEIRA [facility] Start: 10-22-2023 ambulatory JOHN PINEDA [facility] Start: 10-22-2023 End: 10-22-2023 Office outpatient new 30 minutes John Pineda ELECTRICAL SUPERVISOR-RECOVERY ENGINEER Work Phone: [facility] Comment on above: [...] Phone: Start: 10-11-2018 Colonoscopy John Tucker wilton ELECTRICAL SUPERVISOR-RECOVERY ENGINEER Work Phone: Plan of Treatment Date Care Activity Detail Author Start: 11-04-2028 Screening for malign ant neoplasm of colon Colonoscopy [facility] Start: 11-04-2024 Adult BMI Screening Adult BMI Screen ing [facility] Start: 11-04-2024 Tobacco Screening Tobacco Screening [facility] Start: 10-22-2024 Adult BMI Screening Adult BMI Screen ing [facility] Start: 10-22-2024 Tobacco Screening Tobacco Screening [facility] Start: 05-08-2024 COVID-19 Vaccine ( season) COVID-19 Vaccine () [facility] Start: 05-08-2024 Influenza vaccination Influenza Vacc ine [facility] Start: 11-05-2023 End: 11-05-2023 Admission to same day surgery center 11/05/2023 11:00 AM EST - 11/05/2023 11:30 AM EST Surgery [facility] [address] [place] [address] Nubia Nogueira, DO [address] [place] [address] [phone] COLONOSCOPY DIAGNOSTIC / SCREENING [49836 (CPT )] [facility] Comment on above: COLONOSCOPY DIAGNOST IC / SCREENING [83127 (CPT )] Start: 11-05-2023 End: 11-05-2023 Colonoscopy flx dx w/collj spec when pfrmd COLONOSCOPY DIAGNOSTIC / SCREENING Family history of colon cancer 11/05/2023 11:00 AM [facility] Start: 11-05-2023 Subsequent hospital visit by physician 11/05/2023 11:00 AM EST Hospital Encounter [facility] - Surgery [address] [place] [id number] Nubia Nogueira, DO [address] [place] [address] [phone] [facility] Start: 10-29-2023 End: 10-29-2023 ambulatory 10/29/2023 2:10 PM EST Support Visit [facility] - Pre Admit [address] [place] [address] [facility] Pre Admit Start: 10-11-2023 Screening for malign ant neoplasm of colon Colonoscopy [facility] Start: 2010 Administration of varicella zoster vaccine Zoster (Shingles) Vaccine (1 of 2) [facility] Start: 1979 DTaP,Tdap and Td Vac cines (1 - Tdap) DTaP,Tdap and Td Vaccines (1 - Tdap) [facility] Start: 1978 Adult BMI Follow Up Plan Adult BMI Follow Up Plan [facility] Start: 1972 Depression Screening Depression Scre ed [facility] End: 10-22-2024 Colonoscopy Colonoscopy GI Routine Family history of malignant neoplasm of colon 1 Occurrences starting 10/22/2023 until 10/22/2024 [facility] Comment on above: 1 Occurrences starti ng 10/22/2023 until 10/22/2024 Immunizations Immunization Date Immunization Notes Care Provider Keny mata 06-17-2023 influenza virus vaccine, unspecified formulation Nubia Kb DO Work Phone: [facility] Payers Date Payer Category Payer Self-pay 2023 Managed Care Other (unspecified) [facility] [id number] 2023 Private Health Insurance [facility] CHOICE PLUS [id number] 2023-Present [phone] [address] [address] [place] [address] [id number] 1960 Unknown [id number] 2.16.840.1.942540.3.579. 2.593 1960 Unknown [id number] 2.16.840.1.291396.3.579. 2.593 1960 Unknown [id number] 2.16.840.1.402197.3.579. 2.593 1960 Unknown [id number] 2.16.840.1.897011.3.579. 2.593 1960 Unknown [id number] 2.16.840.1.762080.3.579. 2.593 1960 Unknown [id number] 2.16.840.1.317948.3.579. 2.593 1960 Unknown [id number] 2.16.840.1.737025.3.579. 2.593 1960 Unknown [id number] 2.16.840.1.383704.3.579. 2.1286 1960 Unknown [id number] 2.16.840.1.091150.3.579. 2.1286 1960 Unknown [id number] 2.16.840.1.219034.3.579. 2.1286 1960 Unknown [id number] 2.16.840.1.191867.3.579. 2.1286 1960 Unknown [id number] 2.16.840.1.059744.3.579. 2.1286 1959 Private Health Insurance [id number] 1959 Self-pay [id number] Social History Date Type Detail Facility Start: 12-31-2022 End: 11-05-2023 Tobacco smoking status [facility] Ex-smoker [facility] Start: 08-28-1976 End: 08-28-1998 History of tobacco use Current smoker [facility] Start: 08-28-1976 End: 08-28-1998 History of tobacco use Cigarette Smoker [facility] Start: 12-31-2022 End: 11-05-2023 Tobacco use and exposure Smokeless tobacco non-user [facility] Start: 10-22-2023 End: 11-05-2023 Alcohol intake Current drinker of alcohol (finding) [facility] Start: 10-18-2020 End: 12-30-2021 History of Social function [facility] Work Phone: Start: 10-18-2020 End: 12-30-2021 Alcohol Use Disorder Identification Test - Consumption [AUDIT-C] [facility] Work Phone: How often to you hav e a drink containing alcohol? Monthly or less [facility] Work Phone: How many standard dr inks containing alcohol do you have on a typical day? 5 or 6 [facility] How often do you hav e 6 or more drinks on 1 occasion? Less than monthly [facility] Childcare Unknown [facility] Start: 09-28-2018 Alcohol Comment social [facility] Start: 1960 Sex Assigned At Not on file P [facility] Start: 1960 Sex Assigned At Female [facility] Start: 09-22-2018 Sex Female (finding) [facility] Clinical Notes 10-22-2023 to 03-16-2024 John Pineda, ELECTRICAL SUPERVISOR-RECOVERY ENGINEER - 10/22/2023 3:30 PM EST Note Date [...] with any additional questions. Agatha Vanegas CPhT [facility] 03/22/24 12:16 PM [facility] 03-16-2024 Note Spoke to pt, she is suppose to receive the shipment on 03/21. I will follow-up with her on 03/22 to make sure she doesn't have any further questions. Jerardo Quintero, PharmD, BCACP 03/18/24 11:27 AM [facility] [phone] [facility] 03-16-2024 Note High copay. Rx at [facility], they can get copay card for pt [...] BEA 03/17/24 2:15 PM [facility] [phone] [facility] 03-16-2024 Note Prior [facility] 03/16/2024-04/15/2024. Case ID/Authorization Number: [id number] Urbano Mueller , [facility] 03/17/24 1:39 PM [facility] 03-16-2024 Note Specialty Pharmacy N ote: Diana Supervising Physician & Clinic:?? BILLY Mills is a 63 y.o. year old female patient with PMH of: Recurrent C. Diff GERD Allergies Allergen Reactions Penicillins Swelling Sulfa (Sulfonamide Antibiotics) Swelling Lips swell [facility]D [facility] of [facility]. [...] BEA 03/16/24 11:48 AM [facility] [phone] [facility] 03-11-2024 Note Subjective Patient ID: Deepa [...] past 36 hour(s)). No follow-ups on file. [facility] 10-22-2023 History of Present illness Narrative [...] Nubia Nogueira DO at [facility] ESOPHAGOGASTRODUODENOSCOPY N/A 07/04/2021 Performed by Nubia Nogueira DO at [facility] HYSTERECTOMY 2008 OOPHORECTOMY Allergies Allergen Reactions [...] mouth daily., Disp: , Rfl: peg 3350-sod sulf,hqob-fod-bbt 178.7-7.3-0.5 gram recon soln, Take 1 kit [...] patient/family/caregiver Referring and communicating with other health ambulatory care coordinator Family history of malignant neoplasm of colon [Z80.0] BETTY SMITH [facility] General [facility] [place] This note was created with the assistance of a speech recognition program. While intending to generate a timely document that accurately reflects the content of the visit, no guarantee can be provided that every grammatical or spelling mistake has been or will be identified or corrected. Thank you for your understanding. BETTY Smith 10/22/23 [id number] documented in this encounter [facility] Evaluation note Diagnosis Family history of malignant neoplasm of colon- Primary Family history of colon cancer Family history of malignant neoplasm of gastrointestinal tract documented in this encounter [facility] assessment information available [facility] Work Phone: InstructionsNot on filedocumented in [...] content) DATE CREATED AUTHOR [facility]/28/2022 [facility] DATE CREATED AUTHOR AUTHOR'S ORGANIZ ATION 10/28/2023 [facility] DATE CREATED AUTHOR AUTHOR'S ORGANIZ ATION 11/07/2023 [facility] DATE CREATED AUTHOR AUTHOR'S ORGANIZ ATION 02/20/2024 [facility] DATE CREATED AUTHOR AUTHOR'S ORGANIZ ATION 02/22/2024 [facility] DATE CREATED AUTHOR AUTHOR'S ORGANIZ ATION 03/28/2024 [facility] Reason for Visit (unrecogniz ed section and content) Reason Comments Colon Cancer Screening 5 year recall, [facility] history of colon cancer Reason Comments Med Refill Care Teams (unrecognized sec tion and content) Member Certification Manager Relationship Specialty Start Date End Date Real Kimball MD [address] [place] [id number] PCP - General Family Medicine 09/22/18 Team Status: Inactive Member Role Status Dates Nubia Nogueira DO Attending Provider Active Start: February 19, 2024 End: February 19, 2024 Member Certification Manager Relationship Specialty Start Date End Date Real [...] BE BASED ON THE PRIMARY CLINICAL RECORDS. [facility] [employer] [facility]. provides no warranty or guarantee of the accuracy or completeness of information in this document.
[2024-10-14] MEDS: LIDOCAINE HCL 15 ML, SODIUM BICARBONATE 2 MEQ INJ (09:00)
--- NOTE | 2024-10-14 09:20 | FL_ITS ---
[address] [address] Patient Name: DEEPA ZAYAS MRN: [id number] date: 1960 Sex: F Assigned Patient Location: MRI Current Patient Location: MRI Accession/Order Number: [id number] Exam Date: 10/14/2024 08:35 Report Date: 10/14/2024 09:57 At the request of: REAL BAUTISTA Procedure: FL guided needle placement EXAMINATION: FL arthrogram shoulder, FL guided needle placement HISTORY: Shoulder Impingement COMPARISON: No relevant comparison available. TECHNIQUE: An arthrogram was performed under fluoroscopic guidance using non-ionic contrast material in the usual sterile manner after obtaining informed consent. Standard level fluoroscopic mode of operation utilized. FINDINGS: JOINT: Right shoulder NEEDLE: 25 gauge, 3.5 spinal needle. MEDICATION: 2cc buffered 1% lidocaine for subcutaneous anesthesia 5 mL Omnipaque 240. 5 mL 1% lidocaine. 0.2 mL Dotarem. TECHNIQUE: Anterior approach with prior localization. A single stick was successful in gaining access to the joint space. CLINICAL: 6 out of 10 pain before the procedure. 4 out of 10 pain following the procedure COMPLICATIONS: None. BONES: Normal. No erosion, osteophyte, fracture, or bony lesion. CARTILAGE: Normal. No visible erosion or interruption. CAPSULE: Normal. No visible capsular laxity or labrum tear. RYDER-ARTICULAR: Normal. No visible ryder-articular soft tissue abnormality. LOOSE BODIES: None. OTHER: Negative. PLEASE ALSO SEE THE SEPARATE ARTHROGRAM PROCEDURE REPORT. FL/FL guided needle placement IMPRESSION: Technically successful right shoulder diagnostic arthrogram. Electronically authenticated by: CALLY CURRAN Date: 10/14/2024 09:57
--- NOTE | 2024-10-14 09:20 | FL_ITS ---
[address] [address] Patient Name: DEEPA ZAYAS MRN: [id number] date: 1960 Sex: F Assigned Patient Location: MRI Current Patient Location: MRI Accession/Order Number: [id number] Exam Date: 10/14/2024 08:35 Report Date: 10/14/2024 09:57 At the request of: REAL BAUTISTA Procedure: FL arthrogram shoulder EXAMINATION: FL arthrogram shoulder, FL guided needle placement HISTORY: Shoulder Impingement COMPARISON: No relevant comparison available. TECHNIQUE: An arthrogram was performed under fluoroscopic guidance using non-ionic contrast material in the usual sterile manner after obtaining informed consent. Standard level fluoroscopic mode of operation utilized. FINDINGS: JOINT: Right shoulder NEEDLE: 25 gauge, 3.5 spinal needle. MEDICATION: 2cc buffered 1% lidocaine for subcutaneous anesthesia 5 mL Omnipaque 240. 5 mL 1% lidocaine. 0.2 mL Dotarem. TECHNIQUE: Anterior approach with prior localization. A single stick was successful in gaining access to the joint space. CLINICAL: 6 out of 10 pain before the procedure. 4 out of 10 pain following the procedure COMPLICATIONS: None. BONES: Normal. No erosion, osteophyte, fracture, or bony lesion. CARTILAGE: Normal. No visible erosion or interruption. CAPSULE: Normal. No visible capsular laxity or labrum tear. RYDER-ARTICULAR: Normal. No visible ryder-articular soft tissue abnormality. LOOSE BODIES: None. OTHER: Negative. PLEASE ALSO SEE THE SEPARATE ARTHROGRAM PROCEDURE REPORT. FL/FL arthrogram shoulder IMPRESSION: Technically successful right shoulder diagnostic arthrogram. Electronically authenticated by: CALLY CURRAN Date: 10/14/2024 09:57
--- NOTE | 2024-10-14 09:39 | SUR.PREOP ---
09/30 Pt instructed on procedure, date, time,and procedure.
== END 2024-10-14 09:20 | disposition home or self-care (01) ==
LOC: MRI 07:53
PROVIDERS: Radiology Diagnostic Radiology; PCP Family Medicine; Visit Provider Family Medicine
DX: M25.811 Other specified joint disorders, right shoulder (principal)
CPT/HCPCS: 23350; 73222; 77002; A9575; Q9966

== ENCOUNTER 2024-10-25 14:31 | Outpatient (OUT) | payer OTHER, SELFPAY ==
--- NOTE | 2024-10-25 14:35 | ECG_ITS ---
[facility] Test Date: 2024-10-25 Pat Name: DEEPA ZAYAS Department: Room: - Gender: Female Director Of Religious Life: : 1960 Requested By: Raymond Madera Order Number: [id number] Reading MD: REAL BAUTISTA Measurements Intervals [place] Rate: 65 P: 13 NM: 177 QRS: -50 QRSD: 134 T: -50 QT: 422 QTc: 439 Interpretive Statements SINUS RHYTHM WITH OCCASIONAL SUPRAVENTRICULAR PREMATURE COMPLEXES MARKED LEFT AXIS DEVIATION [QRS AXIS < -30] LEFT VENTRICULAR HYPERTROPHY - with strain inf - lat wall - possibel ischemia Electronically Signed On 10-26-2024 7:20:38 EST by REAL BAUTISTA
--- OUTSIDE RECORDS SUMMARY | 2024-10-25 14:48 | XMS_ITS | CCD ---
Author Organization [facility] Care Team Providers Care Lotus Notes Administrator Name Role Phone AVERY MCKNIGHT Attending Unavailable [...] HOY ., DR NOBLE Primary Care Unavailable ROMULUS, DR CALLY Aguila Consulting Unavailable HOY ., DR NOBLE Consulting Unavailable HOY ., DR NOBLE Attending Unavailable HOY ., DR NOBLE Admyordan Unavailable HOY ., DR NOBLE Primary Care Unavailable CASANDRA ALLEN Attending Unavailable CASANDRA ALLEN Admitting Unavailable HOY ., DR NOBLE Primary Care Unavailable CASANDRA ALLEN Consulting Unavailable JOHN PINEDA Attending Unavailable HOY, REAL M Referring Unavailable HOY, REAL M Primary Care Unavailable NUBIA NOGUEIRA Admitting Unavailable NUBIA NOGUERIA Attending Unavailable HOY, REAL M Primary Care Unavailable CALLY ARREAGA Attending Unavailable HOY, REAL M Primary Care Unavailable NUBIA NOGUEIRA Attending Unavailable MIRLANDE NUBIA E Referring Unavailable HOY, REAL M Primary Care Unavailable DO Nubia Nogueira Attending Provider Nubia Nogueira Admitting Unavailable Grillis, Nubia E Attending Unavailable BARBARA LICEA Attending Unavailable Real Kimball MD Primary Care Provider [phone] Real Kimball MD Primary Care Provider [phone] Allergies Allergy Classification Reported Allergen(s) Allergy Type Date of Onset Reaction(s) Facility (1 source) Penicillin Drug Allergy [facility] Repository (1 source) Sulfonamides (Antibiotic) Drug allergy (disorder) [facility] (9 sources) Penicillins; Translations: [PENICILLINS] Propensity to adverse reactions to drug (disorder) 1 Swelling [facility] Repository (9 sources) Sulfonamides (Antibiotic); Translations: [SULFA (SULFONAMIDE ANTIBIOTICS)] Propensity to adverse reactions to drug (disorder) 9 [facility] Repository (8 sources) SULFABENZAMIDE; Translations: [SULFABENZAMIDE] Propensity to adverse reactions to drug (disorder) 9 Swelling [facility] Medications Current Medications Medication Drug Class(es) Dates Sig (Normalized) Sig (Original) lactobacillus acidophilus [id number] unt / pectin 100 mg oral tablet (6 sources) take 1 tablet by mouth once daily at breakfast acidophilus-pectin , citrus 25 million cell -100 mg tablet Take 1 tablet by mouth daily with breakfast. Active leflunomide 20 mg oral tablet (6 sources) Antirheumatic Agent Start: 08-11-2018 take 1 tablet by mouth in the morning leflunomide (ARAVA) 20 mg tablet Take 1 tablet (20 mg total) by mouth in the morning. 08/11/2018 Active levothyroxine sodium 0.15 mg oral tablet (6 sources) l-Thyroxine Start: 07-14-2018 take 1 tablet by mouth in the morning levothyroxine (SYNTHROID, LEVOTHROID) 150 MCG tablet Take 1 tablet (150 mcg total) by mouth in the morning. 07/14/2018 Active liothyronine sodium 0.005 mg oral tablet (6 sources) l-Triiodothyronine Start: 08-27-2018 take 1 tablet by mouth in the morning liothyronine (CYTOMEL) 5 MCG tablet Take 1 tablet (5 mcg total) by mouth in the morning. 08/27/2018 Active loratadine 10 mg oral tablet (6 sources) take 1 tablet by mouth in the morning loratadine (CLARITIN) 10 mg tablet Take 1 tablet (10 mg total) by mouth in the morning. Active Multivitamin preparation (6 sources) multivitamin (MULTI-DAY ORAL) Take by mouth. Active multivitamin (MU LTI-DAY ORAL) Take by mouth. 0 Active omeprazole 40 mg delayed release oral capsule (9 sources) Proton Pump Inhibitor Start: 07-13-2024 take 1 capsule by mouth at bedtime omeprazole (PriLOSEC) 40 mg capsule TAKE 1 CAPSULE (40 MG TOTAL) BY MOUTH IN THE MORNING AND AT BEDTIME. 60 capsule 1 07/13/2024 Active Start: 05-06-2024 take 1 capsule by mo uth at bedtime omeprazole (PriLOSEC) 40 mg capsule TAKE 1 CAPSULE (40 MG TOTAL) BY MOUTH IN THE MORNING AND AT BEDTIME. 60 capsule 1 05/06/2024 Active Start: 03-02-2024 End: 07-13-2024 take 1 capsule by mouth at bedtime omeprazole (PriLOSEC) 40 mg capsule TAKE 1 CAPSULE (40 MG TOTAL) BY MOUTH IN THE MORNING AND AT BEDTIME. 60 capsule 1 05/06/2024 07/13/2024 Discontinued End: 03-02-2024 omeprazole (PriLOSEC) 40 mg capsule Take 20 mg by mouth in the morning and at bedtime. 03/02/2024 Discontinued peg 3350-sod sulf,chlr-pot-m ag 178.7-7.3-0.5 gram recon soln (1 source) Start: 10-22-2023 End: 10-23-2023 peg 3350-sod sulf,chlr-pot-m ag 178.7-7.3-0.5 gram recon soln Indications: Family history of malignant neoplasm of colon Take 1 kit by mouth once daily for 1 dose. Please see instructional sheet given by physicians office. 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 SERVICES DIRECTOR CURRENT DRUG THERAPY] Onset: 04-15-2022 Episodic Other lower respiratory disease (4 sources) Shortness of breath; Translations: [SHORTNESS OF BREATH] Onset: 04-14-2022 Episodic Residual codes; unclassified (1 source) Family history of cancer of colon; Translations: [Family history of malignant neoplasm of digestive organs] 10-22-2023 Episodic Screening and history of mental health and substance abuse codes (1 source) Personal history of nicotine dependence; Translations: [PERSONAL HISTORY OF NICOTINE DEPEND] Onset: 04-15-2022 Episodic Unclassified (1 source) CONTACT W/AND (SUSP) EXPOS COVID-19; Translations: [CONTACT W/AND (SUSP) EXPOS COVID-19] Onset: 04-02-2022 Results Test Name Value Interpretation Reference Range Facility 3603-24-2024 36 Patient called in stating that she needs this letter in by today as it needs to be turned in two business days before hand. [facility] 36 Patient calling in to ask [...] would have started the Vowst on 03/20/24. [facility] 36on 03-17-2024 36 Patient called and [...] dosage of Vowst as well. Please advise. [facility] Documentationon 03-16-2024 Documentation [id number] Deepa Sears 1960 F Date Provider Department Center 03/16/2024 JERARDO FERNANDEZ None No family history on file Reason for Visit and Comments: Specialty Pharmacy Note: Vowst [Other] [facility] 36on 03-15-2024 36 Patient calling to [...] Something needs to be done. Please advise [facility] Telephoneon 03-15-2024 Telephone [id number] Deepa Sears 1960 Date Provider Department Center 03/15/2024 NORIS MIKE [facility] No family history on file [facility] Office Visiton 03-11-2024 Follow-up visit [id number] Deepa Sears 1960 Provider Department [place] 03/11/2024 BARBARA REIS [facility] No family history on file Level of Service:59909 SD OFFICE/OUTPATIENT NEW LOW MDM 30 MINUTES Reason for Visit and Comments: New Patient [632] GERD [[id number]] - C Diff Vowst candidate [facility] Francisco 02-19-2024 L Specimen: [id number] Received: 02/19/24 Status: THOMAS Sy Num: [id number] Spec Type: Surgical Subm Dr: Nubia Nogueira DO Tissues: A Stomach - Biopsy/Polyp (ANTRUM) B Esophagus Biopsy (GE JUNCTION) Procedures: HE/4, Gross/Micro L4/2 Age/ Patient Sex Location Account Attending Physician Deepa Sears 63/F LABELL [id number] Nubia Nogueira DO SPEC NUM: [id number] RECD: 02/19/24 STATUS: THOMAS SY NUM: [id number] PREETI: 02/19/24-0850 [facility] DR: Nubia Nogueira DO ENTERED: 02/19/24-13[address] [facility] [address]: Nile Allen SPEC TYPE: Surgical DEPT: CARINE STAHL ORDERED: [...] Mild gastritis and esophagitis, hiatal hernia Specimen: [id number] Received: 02/19/24-1308 Status: GIOVANNYJose Sy Num: [id number] Spec Type: Surgical Subm Dr: Nubia Nogueira DO Tissues: A Stomach - Biopsy/Polyp (ANTRUM) B Esophagus Biopsy (GE JUNCTION) Procedures: HE/4, Gross/Micro L4/2 Patient: Deepa Sears [id number] (Continued) Specimen: [id number] Received: 02/19/24 (Continued) Signed (signatur e on file) Darshan Iniguez MD 02/22/242036 Specimen: [id number] Received: 02/19/24 Status: THOMAS Tinocostephan Num: [id number] Spec Type: Surgical Subm Dr: Nubia Nogueira DO Tissues: A Stomach - Biopsy/Polyp (ANTRUM) B Esophagus Biopsy (GE JUNCTION) Procedures: Tal AMARAL/Anusha L4/2 Patient: Deepa Sears [id number] (Continued) Specimen: [id number] Received: 02/19/24 (Continued) Gross Description Received are [...] x 0.1 cm, entirely submitted in B1. CPT Codes 91910L3 Specimen: [id number] Received: 02/19/24 Status: THOMAS Sy Num: [id number] Spec Type: Surgical Subm Dr: Nubia Nogueira DO Tissues: A Stomach - Biopsy/Polyp (ANTRUM) B Esophagus Biopsy (GE JUNCTION) Procedures: HE/David, Gross/Micro L4/2 Patient: Deepa Sears [id number] (Continued) Signed (signatur e on file) Darshan Iniguez MD 02/22/242036 Normal [facility] Surgical PathologyOrdered By : Sheron Molina on 02-19-2024 Whim XR CHEST 2 Von 12-24-2022 XR CHEST [...] by: EDDIE OROSCO Date: 2022-12-24 16:25 Normal [facility] MAMM SCREEN 3D DALE CADon 10-20-2022 MAMM SCREEN 3D DALE CAD Patient: DEEPA SEARS Exam Date: 10/20/2022 : 1960 Gender:F Ordering : DR REAL KIMBALL . Admission #: [id number] Family : Order #: [id number] CLICK HERE TO VIEW EXAM RADIOLOGY REPORT [...] Mother with breast cancer at age 75; Grandmother-materna l with breast cancer at age 70. LOCATION: [facility] BREAST COMPOSITION: Heterogeneously dense,which may obscure [...] MD on 10/20/2022 at 12:[address] [facility] Covid-19 PCR (CVDTB[facility])on SARS-CoV-2 (COVID-19) RNA EMMANUEL+probe Ql (Unsp spec) Not detected Normal NOT DETECTED [facility] Comment on above: Result Comment: When [...] for this test is supported by the [place] of Health and Human Service's declaration that [...] longer be used). Performed By: #### C VDTB #### [facility] [address] [place] [address] Dr. Cindi Iniguez INFLUENZA A AND B AGon 10-08 INFLUANEGH SEE BELOW Normal [facility] Comment on above: Result Comment: Nega tive for Flu A protein angiten. Infection due to Flu A cannot be ruled out. Flu A angiten in the sample may be below the detection limit of the test. Performed By: #### C MP, BNP, HSTROPN #### [facility] [address] [place] [address] Dr. Cindi Iniguez INFLUBNEGH SEE BELOW Normal [facility] Comment on above: Result Comment: Nega tive for Flu B protein antigen. Infection due to Flu B cannot be ruled out. Flu B antigen in the sample may be below the detection limit of the test. Performed By: #### C MP, BNP, HSTROPN #### [facility] [address] [place] [address] Dr. Cindi Iniguez INFLUENZA A AG Negative Normal NEGATIVE SEE COMMENT [facility] Comment on above: Performed By: #### C MP, BNP, HSTROPN #### [facility] [address] [place] [address] Dr. Cindi Iniguez INFLUENZA B AG Negative Normal NEGATIVE SEE COMMENT [facility] Comment on above: Performed By: #### C MP, BNP, HSTROPN #### [facility] [address] [place] [address] Dr. Cindi Iniguez Covid-19 PCR ([facility])on 07-09 SARS-CoV-2 (COVID-19) RNA EMMANUEL+probe Ql (Unsp spec) Not detected Normal NOT DETECTED [facility] Comment on above: Result Comment: When [...] for this test is supported by the Coding Team Lead of Health and Human Service's declaration that [...] used). Performed By: #### C VDTBH #### [facility] [address] [place] [address] Dr. Cindi Iniguez BNPon 04-14-2022 Natriuretic peptide B (Bld) [Mass/Vol] 583.0 pg/mL Normal <=900.0 [facility] Comment on above: Performed By: #### C MP, BNP, HSTROPN #### [facility] [address] [place] [address] Dr. Cindi Iniguez CBC AUTO DIFFon 04-14-2022 BASO # 0.0 103/ul Normal 0.0-0.1 [facility] Comment on above: Performed By: #### C BC #### [facility] [address] [place] [address] Dr. Cindi Iniguez Basophils/100 WBC (Bld) 0.2 % Normal 0.2-2.0 [facility] Comment on above: Performed By: #### C BC #### [facility] [address] [place] [address] Dr. Cindi Iniguez EO # 0.0 103/ul Normal 0.0-0.7 [facility] Comment on above: Performed By: #### C BC #### [facility] [address] [place] [address] Dr. Cindi Iniguez Eosinophils/100 WBC (Bld) 0.3 % Critically low 0.9-7.0 [facility] Comment on above: Performed By: #### C BC #### [facility] [address] [place] [address] Dr. Cindi Iniguez Erythrocyte distribution width (RBC) [Ratio] 12.6 % Normal 11.0-15.0 [facility] Comment on above: Performed By: #### C BC #### [facility] [address] [place] [address] Dr. Cindi Iniguez Hematocrit (Bld) [Volume fraction] 43.3 % Normal 36.0-48.0 [facility] Comment on above: Performed By: #### C BC #### [facility] [address] [place] [address] Dr. Cindi Iniguez Hemoglobin (Bld) [Mass/Vol] 14.5 g/dL Normal 12.0-16.0 [facility] Comment on above: Performed By: #### C BC #### [facility] [address] [place] [address] Dr. Cindi Iniguez IG # 0.07 10e3/ul Critically high 0.00-0.03 [facility] Comment on above: Performed By: #### C BC #### [facility] [address] [place] [address] Dr. Cindi Iniguez IG % 0.5 % Normal 0.0-0.5 [facility] Comment on above: Performed By: #### C BC #### [facility] [address] [place] [address] Dr. Cindi Iniguez LYMPH # 1.8 103/ul Normal 1.2-3.8 [facility] Comment on above: Performed By: #### C BC #### [facility] [address] [place] [address] Dr. Cindi Iniguez Lymphocytes/100 WBC (Bld) 12.9 % Critically low 20.5-60.0 [facility] Comment on above: Performed By: #### C BC #### [facility] [address] [place] [address] Dr. Cindi Iniguez MANUAL DIFF REQ NO Normal [facility] Comment on above: Performed By: #### C BC #### [facility] [address] [place] [address] Dr. Cindi Iniguez MCH (RBC) [Entitic mass] 30.5 pg Normal 26.7-34.0 [facility] Comment on above: Performed By: #### C BC #### [facility] [address] [place] [address] Dr. Cindi Iniguez MCHC (RBC) [Mass/Vol] 33.5 g/dL Normal 29.9-35.2 [facility] Comment on above: Performed By: #### C BC #### [facility] [address] [place] [address] Dr. Cindi Iniguez MCV (RBC) [Entitic vol] 91.0 fL Normal 81.0-99.0 [facility] Comment on above: Performed By: #### C BC #### [facility] [address] [address] [address] Cindi Iniguez MONO # 1.0 103/ul Critically high 0.3-0.8 [facility] Comment on above: Performed By: #### C BC #### [facility] [address] [address] [address] Cindi Iniguez Monocytes/100 WBC (Bld) 7.1 % Normal 1.7-12.0 [facility] Comment on above: Performed By: #### C BC #### [facility] [address] [address] [address] Cindi Iniguez NEUT # 10.9 103/ul Critically high 1.4-6.5 [facility] Comment on above: Performed By: #### C BC #### [facility] [address] [place] [address] Dr. Cindi Iniguez Neutrophils/100 WBC (Bld) 79.0 % Critically high 43.0-75.0 [facility] Comment on above: Performed By: #### C BC #### [facility] [address] [address] [address] Cindi Iniguez Platelet mean volume (Bld) [Entitic vol] 8.8 fL Critically low 9.5-13.5 [facility] Comment on above: Performed By: #### C BC #### [facility] [address] [address] [address] Cindi Iniguez PLT 207 103/ul Normal 150-[address] [facility] Comment on above: Performed By: #### C BC #### [facility] [address] [address] [address] Cindi Iniguez RBC 4.76 106/ul Normal 4.20-5.[address] [facility] Comment on above: Performed By: #### C BC #### [facility] [address] [address] [address] Cindi Iniguez WBC 13.8 103/ul Critically high 4.0-11.0 [facility] Comment on above: Performed By: #### C BC #### [facility] [address] [address] [address] Cindi Iniguez CTA CHEST WO W CONon 022 CTA CHEST WO W CON EXAMINATION:CTA CHEST WO W CON INDICATION:SHORTNES S OF BREATH, recent Covid. COMPARISON:None TECHNIQUE:Thin section [...] by: HERNÁN BAR Date: 2022-04-14 16:28 Normal [facility] PROF 14(COMP METB)on Albumin [Mass/Vol] 3.5 g/dL Normal 3.4-5.0 [facility] Comment on above: Performed By: #### C MP, BNP, HSTROPN #### [facility] [address] [address] [address] Cindi Iniguez Albumin/Globulin [Mass ratio] 1.0 {ratio} Normal [facility] Comment on above: Performed By: #### C MP, BNP, HSTROPN #### [facility] [address] [address] [address] Cindi Iniguez ALP [Catalytic activity/Vol] 64 U/L Normal 46-116 [facility] Comment on above: Performed By: #### C MP, BNP, HSTROPN #### [facility] [address] [address] [address] Cindi Iniguez ALT [Catalytic activity/Vol] 44 U/L Normal 14-59 [facility] Comment on above: Performed By: #### C MP, BNP, HSTROPN #### [facility] [address] [place] [address] Dr. Cindi Iniguez Anion gap [Moles/Vol] 12.5 mmol/L Normal [facility] Comment on above: Performed By: #### C MP, BNP, HSTROPN #### [facility] [address] [place] [address] Dr. Cindi Iniguez AST [Catalytic activity/Vol] 21 U/L Normal 15-37 [facility] Comment on above: Performed By: #### C MP, BNP, HSTROPN #### [facility] [address] [place] [address] Dr. Cindi Iniguez Bilirubin [Mass/Vol] 0.3 mg/dL Normal 0.2-1.0 [facility] Comment on above: Performed By: #### C MP, BNP, HSTROPN #### [facility] [address] [place] [address] Dr. Cindi Iniguez Calcium [Mass/Vol] 9.1 mg/dL Normal 8.5-10.1 [facility] Comment on above: Performed By: #### C MP, BNP, HSTROPN #### [facility] [address] [place] [address] Dr. Cindi Iniguez Chloride [Moles/Vol] 97 mmol/L Critically low 98-107 [facility] Comment on above: Performed By: #### C MP, BNP, HSTROPN #### [facility] [address] [place] [address] Dr. Cindi Iniguez CO2 [Moles/Vol] 29.8 mmol/L Normal 21.0-32.0 [facility] Comment on above: Performed By: #### C MP, BNP, HSTROPN #### [facility] [address] [place] [address] Dr. Cindi Iniguez Creatinine [Mass/Vol] 1.06 mg/dL Critically high 0.55-1.02 [facility] Comment on above: Performed By: #### C MP, BNP, HSTROPN #### [facility] [address] [place] [address] Dr. Cindi Iniguez EGFR-AF MOROCCAN >60 Normal >=60 [facility] Comment on above: Performed By: #### C MP, BNP, HSTROPN #### [facility] [address] [address] [address] Cindi Iniguez EGFR-NON AF MOROCCAN 53 mL/min/1.73m2 Critically low >=60 [facility] Comment on above: Performed By: #### C MP, BNP, HSTROPN #### [facility] [address] [address] [address] Cindi Iniguez Globulin (S) [Mass/Vol] 3.6 g/dL Normal [facility] Comment on above: Performed By: #### C MP, BNP, HSTROPN #### [facility] [address] [place] [address] Dr. Cindi Iniguez Glucose [Mass/Vol] 109 mg/dL Critically high 74-[address] [facility] Comment on above: Performed By: #### C MP, BNP, HSTROPN #### [facility] [address] [place] [address] Dr. Cindi Iniguez Potassium [Moles/Vol] 4.3 mmol/L Normal 3.5-5.1 [facility] Comment on above: Performed By: #### C MP, BNP, HSTROPN #### [facility] [address] [place] [address] Dr. Cindi Iniguez Protein [Mass/Vol] 7.1 g/dL Normal 6.4-8.2 [facility] Comment on above: Performed By: #### C MP, BNP, HSTROPN #### [facility] [address] [place] [address] Dr. Cindi Iniguez Sodium [Moles/Vol] 135 mmol/L Critically low 136-145 [facility] Comment on above: Performed By: #### C MP, BNP, HSTROPN #### [facility] [address] [place] [address] Dr. Cindi Iniguez Urea nitrogen [Mass/Vol] 17.0 mg/dL Normal 7.0-18.0 [facility] Comment on above: Performed By: #### C MP, BNP, HSTROPN #### [facility] [address] [address] [address] Cindi Iniguez Urea nitrogen/Creatinine [Mass ratio] 16.0 mg/mg Normal [facility] Comment on above: Performed By: #### C MP, BNP, HSTROPN #### [facility] [address] [address] [address] Cindi Iniguez PROTIMEon 04-14-2022 INR Coag (PPP) [Relative time] 0.93 {INR} Normal [facility] Comment on above: Performed By: #### P TT, PT #### [facility] [address] [place] [address] Dr. Cindi Iniguez INR GUIDELINES SEE BELOW Normal [facility] Comment on above: Result Comment: MESSI RED INR: 2.0 - 3.0 CONDITIONS NOT LISTED BELOW 2.5 - 3.5 FOR PROSTHETIC HEART VALVE REPLACEMENT 2.5 - 3.5 RECURRENT THROMBOSIS Performed By: #### P TT, PT #### [facility] [address] [place] [address] Dr. Cindi Iniguez PT Coag (PPP) [Time] 10.1 s Normal 9.0-11.[address] [facility] Comment on above: Performed By: #### P TT, PT #### [facility] [address] [place] [address] Dr. Cindi Iniguez PTTon 04-14-2022 aPTT Coag (Bld) [Time] 23.8 s Normal 22.3-36.[address] [facility] Comment on above: Performed By: #### C MP, BNP, HSTROPN #### [facility] [address] [place] [address] Dr. Cindi Iniguez TROPONIN, HIGH SENSITIVITYon 04-14-2022 HSTROP 27.4 pg/mL Normal 4.0-51.[address] [facility] Comment on above: Result Comment: CUT- OFF POINTS HAVE BEEN ESTABLISHED BASED ON THE FOURTH UNIVERSAL DEFINITIONS OF MYOCARDIAL INFARCTION. THE UPPER REFERENCE LIMIT (URL) OF TROPONIN, DEFINED THE 99TH PERCENTILE OF cTnI DISTRIBUTION IN A REFERENCE POPULATION, HAS BEEN CONFIRMED THE DECISION THRESHOLD FOR [place] DIAGNOSIS. Performed By: #### C MP, BNP, HSTROPN #### [facility] [address] [place], [place] [id number] Dr. Cindi Iniguez [facility]-08 SARS-CoV-2 (COVID-19) RNA EMMANUEL+probe Ql (Unsp spec) Detected Critically abnormal NOT DETECTED [facility] Comment on above: Result Comment: This test is not yet approved or cleared by the [place] FDA. When there are no FDA-approved or cleared tests available, and other criteria are met, FDA can make tests available under an emergency access mechanism called an Emergency Use Authorization (EUA). The EUA for this test is supported by the Coding Team Lead of Health and Human Service's (HHS's) declaration [...] By: #### C MP, BNP, HSTROPN #### [facility] [address] [place] [address] Cindi Iniguez Vital Signs Date Time Vital Sign Value Performing Clinician Faci lity 10-22-2023 15:23-0500 Body mass index (BMI) [Ratio] 36.39 kg/m2 John Pineda APRN-TANK CREWMEMBER Work Phone: [employer] [facility] 10-22-2023 15:23-0500 Body weight 96.16 kg John Pineda APRN-TANK CREWMEMBER Work Phone: [facility] [employer] [facility] Encounters Encounter Date Encounter Type Care Provider Facility Start: 07-13-2024 End: 07-13-2024 Refill Nubia Nogueira DO Work Phone: [facility] Start: 05-06-2024 End: 05-06-2024 Refill Nubia Nogueira DO Work Phone: [facility] Start: 03-11-2024 End: 03-11-2024 ambulatory [facility] Start: 03-02-2024 End: 03-02-2024 Orders Only Not In System Ref Prov [facility] General Surgery Start: 02-19-2024 End: 02-19-2024 ambulatory Nubia Nogueira [facility] Work Phone: Start: 02-19-2024 End: 02-19-2024 Departed Referred DO Nubia Nogueira Work Phone: [facility] Path Spec [facility] Start: 11-06-2023 End: 11-06-2023 Evaluation and management of inpatient CALLY ARREAGA [facility] Start: 11-05-2023 End: 11-06-2023 Evaluation and management of inpatient NUBIA Stephanie SILKE [facility] Start: 10-22-2023 ambulatory [facility] Start: 10-22-2023 End: 10-22-2023 Office outpatient new [address] 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-TANK CREWMEMBER Work Phone: [facility] General Surgery Comment on above: Family history [...] Date Procedure Procedure Detail Performing Clinician Start: 02-19-2024 Level i surg patholo gy gross examination only Not In System Ref Prov Start: 11-05-2023 Colonoscopy Not Ref Pr ov Start: 10-11-2018 Colonoscopy John Tucker jamaroll STRAIGHTENING PRESS OPERATOR HELPER-TANK CREWMEMBER Work Phone: Plan of Treatment Date Care Activity Detail Author Start: 11-04-2028 Screening for malign ant neoplasm of colon Colonoscopy [facility] Start: 11-04-2024 Adult BMI Screening Adult BMI Screen ing [facility] Start: 11-04-2024 Tobacco Screening Tobacco Screening [facility] Start: 10-22-2024 Adult BMI Screening Adult BMI Screen ing [facility] Start: 10-22-2024 Tobacco Screening Tobacco Screening [facility] Start: 05-08-2024 COVID-19 Vaccine () COVID-19 Vaccine () [facility] Start: 05-08-2024 Influenza vaccination Influenza Vacc ine [facility] Start: 11-05-2023 End: 11-05-2023 Admission to same day surgery center 11/05/2023 11:00 AM [facility] - 11/05/2023 11:30 AM [facility] Surgery [facility] [address] [place] [address] Nubia Nogueira, [address] [place] [address] COLONOSCOPY DIAGNOSTIC / SCREENING [66571 (CPT )] [facility] Comment on above: COLONOSCOPY DIAGNOST IC / SCREENING [83885 (CPT )] Start: 11-05-2023 End: 11-05-2023 Colonoscopy flx dx w/collj spec when pfrmd COLONOSCOPY DIAGNOSTIC / SCREENING Family history of colon cancer 11/05/2023 11:00 AM [facility] Start: 11-05-2023 Subsequent hospital visit by physician 11/05/2023 11:00 AM [facility] Hospital Encounter [facility] [address] [place] [address] Nubia Nogueira, [address] [place] [address] [facility] - Surgery Start: 10-29-2023 End: 10-29-2023 ambulatory 10/29/2023 2:10 PM EST Support Visit [facility] - Pre Admit [address] [place] [address] [facility] - Pre Admit Start: 10-11-2023 Screening for malign ant neoplasm of colon Colonoscopy [facility] Start: 2010 Administration of varicella zoster vaccine Zoster (Shingles) Vaccine (1 of 2) [facility] Start: 1979 DTaP,Tdap and Td Vac cines (1 - Tdap) DTaP,Tdap and Td Vaccines (1 - Tdap) [facility] Start: 1978 Adult BMI Follow Up Plan Adult BMI Follow Up Plan [facility] Start: 1972 Depression Screening Depression Scre ening [facility] End: 10-22-2024 Colonoscopy Colonoscopy GI Routine Family history of malignant neoplasm of colon 1 Occurrences starting 10/22/2023 until 10/22/2024 [facility] Work Phone: Comment on above: 1 Occurrences starti ng 10/22/2023 until 10/22/2024 Immunizations Immunization Date Immunization Notes Care Provider Fa cility 06-17-2023 influenza virus vacc ine, unspecified formulation Not Ref Prov [facility] Payers Date Payer Category Payer Self-pay 2023 Managed Care Other (unspecified) [facility] [id number] 2023 Private Health Insurance [facility] PLUS [id number] 2023-Present [phone] [address] [address] [place] [address] [id number] 1960 Unknown [id number] [id number]. 2.593 1960 Unknown [id number] 2.16.840.1.808334.3.579. 2.593 1960 Unknown [id number] 2.16.840.1.648914.3.579. 2.593 1960 Unknown [id number] 2.16.840.1.419497.3.579. 2.593 1960 Unknown [id number] 2.16.840.1.487349.3.579. 2.593 1960 Unknown [id number] 2.16.840.1.890099.3.579. 2.593 1960 Unknown [id number] 2.16.840.1.394225.3.579. 2.593 1960 Unknown [id number] 2.16.840.1.586272.3.579. 2.1286 1960 Unknown [id number] 2.16.840.1.265350.3.579. 2.1286 1960 Unknown [id number] 2.16.840.1.658743.3.579. 2.1286 1960 Unknown [id number] 2.16.840.1.443643.3.579. 2.1286 1960 Unknown [id number] 2.16.840.1.992921.3.579. 2.1286 1959 Private Health Insurance [id number] 1959 Self-pay [id number] Social History Date Type Detail Facility Tobacco smoking stat us DCIS Unknown if ever smoked [facility] Start: 1960 Sex Assigned At Female F [facility] Start: 12-31-2022 End: 11-05-2023 Tobacco smoking status NHIS Ex-smoker [facility] Start: 08-28-1976 End: 08-28-1998 History of tobacco use Current smoker [facility] Start: 08-28-1976 End: 08-28-1998 History of tobacco use Cigarette Smoker [facility] Start: 10-18-2020 End: 11-05-2023 Cigarettes smoked current (pack per day) - Reported 1 [facility] Work Phone: Start: 12-31-2022 End: 11-05-2023 Tobacco use and exposure Smokeless tobacco non-user [facility] Start: 10-22-2023 End: 11-05-2023 Alcoholic beverage intake Current drinker of alcohol (finding) [facility] Start: 10-18-2020 End: 12-30-2021 Alcohol Use Disorder Identification Test - Consumption [AUDIT-C] [facility] Work Phone: How often to you hav e a drink containing alcohol? Monthly or less [facility] Work Phone: How many standard dr inks containing alcohol do you have on a typical day? 5 or 6 [facility] How often do you hav e 6 or more drinks on 1 occasion? Less than monthly [facility] Childcare Unknown [facility] Start: 09-28-2018 Alcohol Comment social [facility] Start: 1960 Sex assigned at Not on file P [facility] Start: 09-22-2018 Sex Female (finding) [facility] Clinical Notes 10-22-2023 to 03-16-2024 Telephone Encounter - Anabell Herrera, [facility] - 03/02/2024 1:22 PM EDTTelephone Encounter - Anabell Herrera, [facility] - 03/02/2024 1:22 PM EDTTelephone Encounter - Anabell Herrera, [facility] - 03/02/2024 1:22 PM EDT Note Date & Type Note Facility 03-16-2024 [...] the office with any additional questions. Agatha Guilherme [facility] 03/22/24 12:16 PM [facility] 03-16-2024 Note Spoke to pt, she is suppose to receive the shipment on 03/21. I will follow-up with her on 03/22 to make sure she doesn't have any further questions. Jerardo Quintero PharmD, BCACP 03/18/24 11:27 AM [facility] [phone] [facility] 03-16-2024 Note High copay. Rx at [facility], they can get copay card for pt to fill since copay is high. Called pt and gave her [facility] number. She asked me about having next week off of work, I Epic chatted Noris regarding this. Follow-up with pt tomorrow to make sure [facility] was able to fill and she is able to get it by Thursday. Jerardo Quintero PharmD, BCACP 03/17/24 2:15 PM [facility] [phone] [facility] 03-16-2024 Note Prior Authorization for vowst has been approved 03/16/2024-04/15/2024. Case ID/Authorization Number: [id number] Urbano Mueller , [facility] 03/17/24 1:39 PM [facility] 03-16-2024 Note Specialty Pharmacy N ote: [facility] Supervising Physician & Clinic:?? BILLY Mills is a 63 y.o. year old female patient with PMH of: Recurrent C. Diff GERD Allergies Allergen Reactions Penicillins Swelling Sulfa (Sulfonamide Antibiotics) Swelling Lips swell PharmD consulted for evaluation of [facility] for treatment of recurrent C. diff (Diagnosis [...] follow-up for her after that. ? Jerardo Quintero, CourtD, BCACP 03/16/24 11:48 AM [facility] [phone] [facility] 03-11-2024 Note Subjective Patient ID: Deepa Sears [...] past 36 hour(s)). No follow-ups on file. [facility] 03-02-2024 Miscellaneous Notes Formattin g of this note might be different from the original. ----- Message from Dr. Nubia Nogueira DO sent at 03/02/2024 9:20 AM EDT ----- Please let patient know that she has Cool's esophagus and ask her whether she has indigestion or not on the omeprazole 20 mg b.i.d.. Because if she does may want to increase that to 40 mg b.i.d.. Make sure that she knows Barretts increases her risk of esophageal cancer by 1-2% and that she needs repeat EGD in 3 years for surveillance. She should avoid lots of caffeine alcohol or tobacco which contributes to reflux disease. Thanks, Dr. Santiago If she has any questions she can make an appointment to see me. Spoke with patient regarding pathology results. Patient verbally understood with questions answered to the best of my ability. Will have Dr. Nogueira prescribe Omeprazole BID and send information on Cool's Esophagus in the mail. Recall to be put in chart. documented in this encounter [facility] 03-02-2024 Telephone encount er Note ----- Message from Dr. Nubia Nogueira DO sent at 03/02/2024 9:20 AM EDT ----- Please let patient know that she has Cool's esophagus and ask her whether she has indigestion or not on the omeprazole 20 mg b.i.d.. Because if she does may want to increase that to 40 mg b.i.d.. Make sure that she knows Barretts increases her risk of esophageal cancer by 1-2% and that she needs repeat EGD in 3 years for surveillance. She should avoid lots of caffeine alcohol or tobacco which contributes to reflux disease. Thanks, Dr. Santiago If she has any questions she can make an appointment to see me. [facility] 03-02-2024 Telephone encount er Note Spoke with patient regarding pathology results. Patient verbally understood with questions answered to the best of my ability. Will have Dr. Nogueira prescribe Omeprazole BID and send information on Cool's Esophagus in the mail. Recall to be put in chart. [facility] 10-22-2023 History of Presen t illness Narrative [...] 10/11/2018 Performed by Nubia Nogueira DO at [facility] ESOPHAGOGASTRODUODENOSCOPY N/A 07/04/2021 Performed by Nubia Nogueira DO at [facility] HYSTERECTOMY 2008 OOPHORECTOMY Allergies Allergen Reactions [...] mouth daily., Disp: , Rfl: peg 3350-sod sulf,ggum-dix-rsp 178.7-7.3-0.5 gram recon soln, Take 1 kit [...] Referring and communicating with other health animal daycare provider Family history of malignant neoplasm of colon [Z80.0] BETTY SMITH [facility] General Surgery [place] This note was created with the assistance of a speech recognition program. While intending to generate a timely document that accurately reflects the content of the visit, no guarantee can be provided that every grammatical or spelling mistake has been or will be identified or corrected. Thank you for your understanding. BETTY Smith 10/22/23 1550 documented in this encounter [facility]: Evaluation note Diagnosis Family history of malignant neoplasm of colon- Primary Family history of colon cancer Family history of malignant neoplasm of gastrointestinal tract documented in this encounter [facility] [...] and content) DATE CREATED AUTHOR 12/28/2022 [facility] DATE CREATED AUTHOR AUTHOR'S ORGANIZ ATION 10/28/2023 [facility] DATE CREATED AUTHOR AUTHOR'S ORGANIZ ATION 11/07/2023 [facility] DATE CREATED AUTHOR AUTHOR'S ORGANIZ ATION 02/20/2024 [facility] DATE CREATED AUTHOR AUTHOR'S ORGANIZ ATION 02/22/2024 [facility] DATE CREATED AUTHOR AUTHOR'S ORGANIZ ATION 03/28/2024 [facility] Care Teams (unrecognized sec tion and content) Team Status: Inactive Member Role Status Dates Nubia Nogueira DO Attending Provider Active Start: February 19, 2024 End: February 19, 2024 Lotus Notes Administrator Relationship Specialty Start Date End Date Real Kimball MD PCP - General Family Medicine 09/22/18 Lotus Notes Administrator Relationship Specialty [place] [address] [place] [address] PCP - General Family Medicine 09/22/18 Lotus Notes Administrator Relationship Specialty Start Date End Date Real Kimball MD [address] [id number] PCP - General Family Medicine 09/22/18 Lotus Notes Administrator Relationship Specialty Start Date End Date Real Kimball MD [address] [id number] PCP - General Family Medicine 09/22/18 Lotus Notes Administrator Relationship Specialty Start Date End Date Real Kimball MD [address] [place] [address] PCP - General Family Medicine 09/22/18 Goals (unrecognized section and content) Goals may be documented in a n alternate sectionNot on filedocumented as of this encounterNot on filedocumented as of this encounterNot on filedocumented as of this encounterNot on filedocumented as of this encounterNot on filedocumented as of this encounterNot on filedocumented as of this encounter Reason for Visit (unrecogniz ed section and content) Reason Comments Med Refill Reason Comments Colon Cancer Screening 5 year recall, fa tushar history of colon cancer FOR RECORDS PERTAINING TO PATIENTS WHO ARE [...] BE BASED ON THE PRIMARY CLINICAL RECORDS. [employer] [facility]. provides no warranty or guarantee of the accuracy or completeness of information in this document.
== END 2024-10-25 14:32 | disposition home or self-care (01) ==
LOC: PST 14:32
PROVIDERS: PCP Family Medicine; Visit Provider Orthopaedic Surgery
DX: Z01.812 Encounter for preprocedural laboratory examination (principal); Z01.810 Encounter for preprocedural cardiovascular examination
CPT/HCPCS: 80048; 93005

== ENCOUNTER 2024-11-02 08:34 | Outpatient (OUT) | payer OTHER, SELFPAY ==
--- NOTE | 2024-11-02 | PCN_ITS ---
CARDIAC STRESS TEST Requesting Physician: Procedure Date: 11/02/2024 This was a cardiac stress test performed at the [facility] on 11/02/2024. Informed consent was obtained. The patient was attached to electrocardiographic monitoring. An intravenous line was secured. Vital signs and baseline ECG were obtained. The patient exercised on a treadmill according to the Prasad protocol. Total exercise time was 5 minutes and 28 seconds. The patient reached Stage 2 of the Prasad protocol and achieved 7 METS. Resting heart rate was 67 BPM and maximum heart rate was 142 BPM, representing 91% of maximum predicted heart rate. Resting blood pressure was 143/75 and maximum blood pressure 166/84. Baseline ECG showed sinus rhythm with left ventricular hypertrophy and T-wave inversions in the inferior and lateral leads. ECG during exercise showed sinus tachycardia with occasional PVCs. No ischemic ST changes were seen. ECG at the end of the test shows sinus rhythm with non-specific T-wave changes. Those non- specific T-wave changes replaced baseline T-wave inversions. Cardiolite was administered intravenous at peak exercise. The patient then went on to obtain myocardial perfusion imaging. SUMMARY OF THE FINDINGS: 1. No evidence of ischemic ST changes seen with treadmill exercise. 2. Uncontrolled hypertension at baseline with appropriate blood pressure response to exercise. 3. Functional capacity was average. 4. 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 5. Abnormal resting ECG with T-wave inversions and repolarization abnormalities noted. 6. Myocardial perfusion images will be reported separately. MISAD
--- NOTE | 2024-11-02 08:15 | NM_ITS ---
Patient Name: DEEPA ZAYAS MR#: [id number] : 1960 Exam Date: 11/02/2024 Ordering Doctor: DR Tano Kimball . RADIOLOGY REPORT PROCEDURE: NM MONO PERF SPECT REST STR COMPARISON: None. INDICATIONS: ISCHEMIC HEART DISEASE, ABNORMAL EKG, PRE-PROCEDURE EXAM TECHNIQUE: Exam Description: Stress/Rest one day protocol gated SPECT Rest Imagin.8 mCi Tc-99m Cardiolite IV on 11/02/2024 Stress Imaging 30.2 mCi Tc-99m Cardiolite IV on 11/02/2024 Exercise Protocol: Prasad Heart Rate (bpm): Rest: 67 Max: 142 PMHR: 91 Blood Pressure: Rest: 143/75 Max: 166/84 Exercise Time: Minutes: 5 Seconds: 28 Stage Reached: Stage: 2 Mets 7.0 Symptoms: Rest and peak stress ECG findings were pending and the exercise portion of the study was pending per attending physician Dr. MURRELL . For more details, please see separate cardiac stress test report. FINDINGS: QUALITY OF STUDY: Good PERFUSION DEFECT: LOCATION: Basal inferolateral SIZE: Moderate SEVERITY: Mild TYPE: Partially reversible WALL MOTION: Hypokinesia of the inferior wall LV SIZE: 163 mL. TID / TCD: 0.9 LVEF: Calculated EF 39%. SUMMARY: Myocardial perfusion imaging study is abnormal CONCLUSION: 1. Myocardial perfusion is abnormal with soft tissue attenuation 2. There is a partially reversible inferolateral and inferoseptal perfusion defect suggestive of infarct with cayla-infarct ischemia 3. Global left ventricular systolic function is moderately reduced; ejection fraction is 35% 4. No evidence of transient ischemic dilatation Dictated by: Evelin Rockwell M.D. on 11/02/2024 at 14:54 Approved by: Evelin Rockwell M.D. on 11/02/2024 at 15:00
--- OUTSIDE RECORDS SUMMARY | 2024-11-02 08:57 | XMS_ITS | CCD ---
Author Organization [facility] CliniSyvt Care Team Providers Care Piece Goods Packer Name Role Phone AVERY MCKNIGHT Attending Unavailable [...] HOY ., DR NOBLE Primary Care Unavailable TYLER, DR CALLY Aguila Consulting Unavailable HOY ., [...] Care Unavailable DO Nubia Nogueira Attending Provider [phone] Nubia Nogueira Admitting Unavailable Grillis, Nubia E Attending Unavailable BARBARA LICEA Attending Unavailable Real Kimball MD Primary Care Provider [phone] Real Kimball MD Primary Care Provider [phone] Allergies Allergy Classification Reported Allergen(s) Allergy Type Date of Onset Reaction(s) Facility (1 source) Penicillin Drug Allergy [facility] Repository (1 source) Sulfonamides (Antibiotic) Drug allergy (disorder) [facility] Repository (9 sources) Penicillins; Translations: [PENICILLINS] Propensity [...] Dates Sig (Normalized) Sig (Original) lactobacillus acidophilus [id number] unt / pectin 100 mg oral tablet [...] BEDTIME. 60 capsule 1 07/13/2024 Active Start: 03-02-2024 End: 07-13-2024 take 1 [...] te Episodic/Chronic Other aftercare (1 source) Other custodial (current) drug therapy; Translations: [OTH SPIN TANK TENDER CURRENT DRUG THERAPY] Onset: 04-15-2022 Episodic Other [...] turned in two business days before hand. [facility] 36 Patient calling in to ask [...] would have started the Vowst on 03/20/24. [facility] [id number] 36 Patient called and LVM, she is [...] dosage of Vowst as well. Please advise. [facility] Documentationon 03-16-2024 Documentation [id number] Deepa Sears 1960 F Date Provider Department Center 03/16/2024 JERARDO FERNANDEZ None No family history on file Reason for Visit and Comments: Specialty Pharmacy Note: Vowst [Other] [facility] 36on 03-15-2024 36 Patient calling to [...] Something needs to be done. Please advise [facility] Telephoneon 03-15-2024 Telephone [phone] Deepa Sears 1960 [facility] Provider Department Center 03/15/2024 [id number], BETH [facility] No family history on file [facility] Office Visiton 03-11-2024 Follow-up visit [id number] Deepa Sears 1960 [facility] Provider Department Center 03/11/2024 BARBARA REIS [facility] No family history on file Level of Service:[id number] ID OFFICE/OUTPATIENT NEW LOW MDM 30 MINUTES Reason for Visit and Comments: New Patient [632] GERD [[id number]] - C Diff Vowst candidate Normal [facility] [place] 02-19-2024 L Specimen: [id number] Received: 02/19/24 Status: THOMAS Sy Num: [id number] Spec Type: Surgical Subm Dr: Nubia Nogueira DO Tissues: A Stomach - Biopsy/Polyp (ANTRUM) B Esophagus Biopsy (GE JUNCTION) Procedures: HE/4, Gross/Micro L4/2 Age/ Patient Sex Location Account Attending Physician Deepa Sears 63/F [facility] [id number] Nubia Nogueira DO SPEC NUM: [id number] RECD: 02/19/24 STATUS: THOMAS SY NUM: [id number] PREETI: 02/19/[address]: Nubia Nogueira DO ENTERED: 02/19/24-[address]: Alejandro,Lab SPEC TYPE: Surgical DEPT: [facility] MARIBETH ORDERED: HE/4, Gross/Micro L4/2 ORDERED: HE/4, Gross/Micro [...] Mild gastritis and esophagitis, hiatal hernia Specimen: [id number] Received: 02/19/24 Status: GIOVANNYJose Yossi Num: [id number] Spec Type: Surgical Subm Dr: Nubia Nogueira DO Tissues: A Stomach - Biopsy/Polyp (ANTRUM) B Esophagus Biopsy (GE JUNCTION) Procedures: HE/4, Gross/Micro L4/2 Patient: Deepa Sears [id number] (Continued) Specimen: [id number] Received: 02/19/24 (Continued) Signed (signatur e on file) Darshan Iniguez MD 02/22/242036 Specimen: [id number] Received: 02/19/24 Status: THOMAS Tinocostephan Num: [id number] Spec Type: Surgical Subm Dr: Nubia Nogueira DO Tissues: A Stomach - Biopsy/Polyp (ANTRUM) B Esophagus Biopsy (GE JUNCTION) Procedures: HE/4, Gross/Micro L4/2 Patient: Deepa Sears [id number] (Continued) Specimen: [id number] Received: 02/19/24 (Continued) Gross Description Received are [...] x 0.1 cm, entirely submitted in B1. [facility] Codes 42326I2 Specimen: [id number] Received: 02/19/24 Status: THOMAS Sy Num: [id number] Spec Type: Surgical Subm Dr: Nubia Nogueira DO Tissues: A Stomach - Biopsy/Polyp (ANTRUM) B Esophagus Biopsy (GE JUNCTION) Procedures: Tal AMARAL/Anusha L4/2 Patient: Deepa Sears [id number] (Continued) Signed (signatur e on file) Valerio-Anuel Iniguez MD 02/22/242036 Normal [facility] Surgical PathologyOrdered By : Sheron Molina on 02-19-2024 DEQ XR CHEST 2 Von 12-24-2022 XR CHEST [...] EDDIE OROSCO Date: 2022-12-24 16:25 Normal [facility] MAMM SCREEN 3D DALE CADon 10-20-2022 MAMM SCREEN 3D DALE CAD Patient: DEEPA SEARS Exam Date: 10/20/2022 : 1960 Gender:F Ordering : DR REAL KIMBALL . Admission #: [id number] Family : Order #: [id number] CLICK HERE TO VIEW EXAM RADIOLOGY REPORT [...] breast cancer at age 70. LOCATION: [facility] BREAST COMPOSITION: Heterogeneously dense,which may [...] MD on 10/20/2022 at 12:00 Normal [facility] Covid-19 PCR (CVDTBH)on SARS-CoV-2 (COVID-19) RNA EMMANUEL+probe Ql (Unsp spec) Not detected Normal NOT DETECTED [facility] Comment on above: Result Comment: [...] for this test is supported by the Senior Risk Analyst of Health and Human Service's declaration that [...] used). Performed By: #### C VDTBH #### [facility] [address] [place] [address] Dr. Cindi Iniguez INFLUENZA A AND B [facility] 10-[facility] BELOW Normal [facility] Comment on above: Result Comment: Nega tive for Flu A protein angiten. Infection due to Flu A cannot be ruled out. Flu A angiten in the sample may be below the detection limit of the test. Performed By: #### C MP, BNP, HSTROPN #### [facility] [address] [place] [address] Dr. Cindi Iniguez INFLUBNEG SEE BELOW Normal [facility] Comment on above: Result Comment: Nega tive for Flu B protein antigen. Infection due to Flu B cannot be ruled out. Flu B antigen in the sample may be below the detection limit of the test. Performed By: #### C MP, BNP, HSTROPN #### [facility] [address] [place] [address] Dr. Cindi Iniguez INFLUENZA A AG Negative Normal NEGATIVE SEE COMMENT [facility] Comment on above: Performed By: #### C MP, BNP, HSTROPN #### [facility] [address] [address] [address] Cindi Iniguez INFLUENZA B AG Negative Normal NEGATIVE SEE COMMENT [facility] Comment on above: Performed By: #### C MP, BNP, HSTROPN #### [facility] [address] [place] [address] Dr. Cindi Iniguez Covid-19 PCR ([facility])on 07-09 SARS-CoV-2 (COVID-19) RNA EMMANUEL+probe Ql (Unsp spec) Not detected Normal NOT DETECTED [facility] Comment on above: Result Comment: [...] for this test is supported by the Senior Risk Analyst of Health and Human Service's declaration that [...] used). Performed By: #### C VDTBH #### [facility] [address] [place] [address] Dr. Cindi Iniguez BNPon 04-14-2022 Natriuretic peptide B (Bld) [Mass/Vol] 583.0 pg/mL Normal <=900.0 [facility] Comment on above: Performed By: #### C MP, BNP, HSTROPN #### [facility] [address] [place] [address] Dr. Cindi Iniguez CBC AUTO DIFFon 04-14-2022 BASO # 0.0 103/ul Normal 0.0-0.1 [facility] Comment on above: Performed By: #### C BC #### [facility] [address] [place] [address] Dr. Cindi Iniguez Basophils/100 WBC (Bld) 0.2 % Normal 0.2-2.0 [facility] Comment on above: Performed By: #### C BC #### [facility] [address] [place] [address] Dr. Cindi Iniguez EO # 0.0 103/ul Normal 0.0-0.7 [facility] Comment on above: Performed By: #### C BC #### [facility] [address] [place] [address] Dr. Cindi Iniguez Eosinophils/100 WBC (Bld) 0.3 % Critically low 0.9-7.0 [facility] Comment on above: Performed By: #### C BC #### [facility] [address] [place] [address] Dr. Cindi Iniguez Erythrocyte distribution width (RBC) [Ratio] 12.6 % Normal 11.0-15.0 [facility] Comment on above: Performed By: #### C BC #### [facility] [address] [place] [address] Dr. Cindi Iniguez Hematocrit (Bld) [Volume fraction] 43.3 % Normal 36.0-48.0 [facility] Comment on above: Performed By: #### C BC #### [facility] [address] [place] [address] Dr. Cindi Iniguez Hemoglobin (Bld) [Mass/Vol] 14.5 g/dL Normal 12.0-16.0 [facility] Comment on above: Performed By: #### C BC #### [facility] [address] [place] [address] Dr. Cindi Iniguez IG # 0.07 10e3/ul Critically high 0.00-0.03 [facility] Comment on above: Performed By: #### C BC #### [facility] [address] [place] [address] Dr. Cindi Iniguez IG % 0.5 % Normal 0.0-0.5 [facility] Comment on above: Performed By: #### C BC #### [facility] [address] [place] [address] Dr. Cindi Iniguez LYMPH # 1.8 103/ul Normal 1.2-3.8 [facility] Comment on above: Performed By: #### C BC #### [facility] [address] [place] [address] Dr. Cindi Iniguez Lymphocytes/100 WBC (Bld) 12.9 % Critically low 20.5-60.0 [facility] Comment on above: Performed By: #### C BC #### [facility] [address] [place] [address] Dr. Cindi Iniguez MANUAL DIFF REQ NO Normal [facility] Comment on above: Performed By: #### C BC #### [facility] [address] [place] [address] Dr. Cindi Iniguez MCH (RBC) [Entitic mass] 30.5 pg Normal 26.7-34.0 [facility] Comment on above: Performed By: #### C BC #### [facility] [address] [place] [address] Dr. Cindi Iniguez MCHC (RBC) [Mass/Vol] 33.5 g/dL Normal 29.9-35.2 [facility] Comment on above: Performed By: #### C BC #### [facility] [address] [place] [address] Dr. Cindi Iniguez MCV (RBC) [Entitic vol] 91.0 fL Normal 81.0-99.0 [facility] Comment on above: Performed By: #### C BC #### [facility] [address] [place] [address] Dr. Cindi Iniguez MONO # 1.0 103/ul Critically high 0.3-0.8 [facility] Comment on above: Performed By: #### C BC #### [facility] [address] [address] [address] Cinid Iniguez Monocytes/100 WBC (Bld) 7.1 % Normal 1.7-12.0 [facility] Comment on above: Performed By: #### C BC #### [facility] [address] [address] [address] Cindi Iniguez NEUT # 10.9 103/ul Critically high 1.4-6.5 [facility] Comment on above: Performed By: #### C BC #### [facility] [address] [address] [address] Cindi Iniguez Neutrophils/100 WBC (Bld) 79.0 % Critically high 43.0-75.0 [facility] Comment on above: Performed By: #### C BC #### [facility] [address] [place] [address] Dr. Cindi Iniguez Platelet mean volume (Bld) [Entitic vol] 8.8 fL Critically low 9.5-13.5 [facility] Comment on above: Performed By: #### C BC #### [facility] [address] [address] [address] Cindi Iniguez PLT 207 103/ul Normal 150-450 [facility] Comment on above: Performed By: #### C BC #### [facility] [address] [address] [address] Cindi Iniguez RBC 4.76 106/ul Normal 4.20-5.40 [facility] Comment on above: Performed By: #### C BC #### [facility] [address] [address] [address] Cindi Iniguez WBC 13.8 103/ul Critically high 4.0-11.0 [facility] Comment on above: Performed By: #### C BC #### [facility] [address] [address] [address] Cindi Iniguez CTA CHEST WO W [...] by: HERNÁN BAR Date: 2022-04-14 16:28 Normal [facility] PROF 14(COMP METB)on 022 Albumin [Mass/Vol] 3.5 g/dL Normal 3.4-5.0 [facility] Comment on above: Performed By: #### C MP, BNP, HSTROPN #### [facility] [address] [place] [address] Dr. Cindi Iniguez Albumin/Globulin [Mass ratio] 1.0 {ratio} Normal [facility] Comment on above: Performed By: #### C MP, BNP, HSTROPN #### [facility] [address] [place] [address] Dr. Cindi Iniguez ALP [Catalytic activity/Vol] 64 U/L Normal 46-116 [facility] Comment on above: Performed By: #### C MP, BNP, HSTROPN #### [facility] [address] [address] [address] Cindi Iniguez ALT [Catalytic activity/Vol] 44 U/L Normal 14-59 [facility] Comment on above: Performed By: #### C MP, BNP, HSTROPN #### [facility] [address] [address] [address] Cindi Iniguez Anion gap [Moles/Vol] 12.5 mmol/L Normal [facility] Comment on above: Performed By: #### C MP, BNP, HSTROPN #### [facility] [address] [place] [address] Dr. Cindi Iniguez AST [Catalytic activity/Vol] 21 U/L Normal 15-37 [facility] Comment on above: Performed By: #### C MP, BNP, HSTROPN #### [facility] [address] [place] [address] Dr. Cindi Iniguez Bilirubin [Mass/Vol] 0.3 mg/dL Normal 0.2-1.0 [facility] Comment on above: Performed By: #### C MP, BNP, HSTROPN #### [facility] [address] [place] [address] Dr. Cindi Iniguez Calcium [Mass/Vol] 9.1 mg/dL Normal 8.5-10.1 [facility] Comment on above: Performed By: #### C MP, BNP, HSTROPN #### [facility] [address] [place] [address] Dr. Cindi Iniguez Chloride [Moles/Vol] 97 mmol/L Critically low 98-107 [facility] Comment on above: Performed By: #### C MP, BNP, HSTROPN #### [facility] [address] [place] [address] Dr. Cindi Iniguez CO2 [Moles/Vol] 29.8 mmol/L Normal 21.0-32.0 [facility] Comment on above: Performed By: #### C MP, BNP, HSTROPN #### [facility] [address] [place] [address] Dr. Cindi Iniguez Creatinine [Mass/Vol] 1.06 mg/dL Critically high 0.55-1.02 [facility] Comment on above: Performed By: #### C MP, BNP, HSTROPN #### [facility] [address] [place] [address] Dr. Cindi Iniguez EGFR-AF WELSH >60 Normal >=60 [facility] Comment on above: Performed By: #### C MP, BNP, HSTROPN #### [facility] [address] [place] [address] Dr. Cindi Iniguez EGFR-NON AF WELSH 53 mL/min/1.73m2 Critically low >=60 [facility] Comment on above: Performed By: #### C MP, BNP, HSTROPN #### [facility] [address] [address] [address] Cindi Iniguez Globulin (S) [Mass/Vol] 3.6 g/dL Normal [facility] Comment on above: Performed By: #### C MP, BNP, HSTROPN #### [facility] [address] [address] [address] Cindi Iniguez Glucose [Mass/Vol] 109 mg/dL Critically high 74-[address] [facility] Comment on above: Performed By: #### C MP, BNP, HSTROPN #### [facility] [address] [address] [address] Cindi Iniguez Potassium [Moles/Vol] 4.3 mmol/L Normal 3.5-5.1 [facility] Comment on above: Performed By: #### C MP, BNP, HSTROPN #### [facility] [address] [place] [address] Dr. Cindi Iniguez Protein [Mass/Vol] 7.1 g/dL Normal 6.4-8.2 [facility] Comment on above: Performed By: #### C MP, BNP, HSTROPN #### [facility] [address] [address] [address] Cindi Iniguez Sodium [Moles/Vol] 135 mmol/L Critically low 136-145 Th [facility] Comment on above: Performed By: #### C MP, BNP, HSTROPN #### [facility] [address] [address] [address] Cindi Iniguez Urea nitrogen [Mass/Vol] 17.0 mg/dL Normal 7.0-18.0 [facility] Comment on above: Performed By: #### C MP, BNP, HSTROPN #### [facility] [address] [address] [address] Cindi Iniguez Urea nitrogen/Creatinine [Mass ratio] 16.0 mg/mg Normal [facility] Comment on above: Performed By: #### C MP, BNP, HSTROPN #### [facility] [address] [place] [address] Dr. Cindi Iniguez PROTIMEon 04-14-2022 INR Coag (PPP) [Relative time] 0.93 {INR} Normal [facility] Comment on above: Performed By: #### P TT, PT #### [facility] [address] [place] [address] Dr. Cindi Iniguez INR GUIDELINES SEE BELOW Normal [facility] Comment on above: Result Comment: MESSI RED INR: 2.0 - 3.0 CONDITIONS NOT LISTED BELOW 2.5 - 3.5 FOR PROSTHETIC HEART VALVE REPLACEMENT 2.5 - 3.5 RECURRENT THROMBOSIS Performed By: #### P TT, PT #### [facility] [address] [place] [address] Dr. Cindi Iniguez PT Coag (PPP) [Time] 10.1 s Normal 9.0-11.6 [facility] Comment on above: Performed By: #### P TT, PT #### [facility] [address] [place] [address] Dr. Cindi Iniguez PTTon 04-14-2022 aPTT Coag (Bld) [Time] 23.8 s Normal 22.3-36.2 [facility] Comment on above: Performed By: #### C MP, BNP, HSTROPN #### [facility] [address] [place] [address] Dr. Cindi Iniguez TROPONIN, HIGH SENSITIVITYon 04-14-2022 HSTROP 27.4 pg/mL Normal 4.0-51.3 [facility] Comment on above: Result Comment: CUT- OFF POINTS HAVE BEEN ESTABLISHED BASED ON THE FOURTH UNIVERSAL DEFINITIONS OF MYOCARDIAL INFARCTION. THE UPPER REFERENCE LIMIT (URL) OF TROPONIN, DEFINED THE 99TH PERCENTILE OF cTnI DISTRIBUTION IN A REFERENCE POPULATION, HAS BEEN CONFIRMED THE DECISION THRESHOLD FOR CO DIAGNOSIS. Performed By: #### C MP, BNP, HSTROPN #### [facility] [address] [place] [address] Dr. Cindi Iniguez Covid-19 PCR (CVDTBH)on 03-08 SARS-CoV-2 (COVID-19) RNA EMMANUEL+probe Ql (Unsp spec) Detected Critically abnormal NOT DETECTED [facility] Comment on above: Result Comment: This test is not yet approved or cleared by the [place] FDA. When there are no FDA-approved or cleared tests available, and other criteria are met, FDA can make tests available under an emergency access mechanism called an Emergency Use Authorization (EUA). The EUA for this test is supported by the Senior Risk Analyst of Health and Human Service's (HHS's) declaration [...] By: #### C MP, BNP, HSTROPN #### [facility] [address] [place] [address] Dr. Cindi Iniguez Vital Signs Date Time Vital Sign Value Performing Clinician Faci lity 10-22-2023 15:23-0500 Body mass index (BMI) [Ratio] 36.39 kg/m2 John Pineda APRN-LEGAL PRACTICE MANAGER Work Phone: [facility] 10-22-2023 15:23-0500 Body weight 96.16 kg John Pineda APRN-LEGAL PRACTICE MANAGER Work Phone: [facility] Encounters Encounter Date Encounter Type Care Provider Facility Start: 07-13-2024 End: 07-13-2024 Refill Nubia Nogueira DO Work Phone: [facility] Start: 05-06-2024 End: 05-06-2024 Refill Nubia Nogueira DO Work Phone: [facility] Start: 03-11-2024 End: 03-11-[address] [facility] Start: 03-02-2024 End: 03-02-2024 Orders Only Not In System Ref Prov [facility] Start: 02-19-2024 End: 02-19-2024 ambulatory Nubia Nogueira [facility] Work Phone: Start: 02-19-2024 End: 02-19-2024 Departed Referred DO Nubia Nogueira Work Phone: [facility] Start: 11-06-2023 End: 11-06-2023 Evaluation and management of inpatient CALLY ARREAGA [facility] Start: 11-05-2023 End: 11-06-2023 Evaluation and management of inpatient NUBIA Brown SILKE [facility] Start: 10-22-2023 ambulatory JOHNSHADY PINEDA [facility] Start: 10-22-2023 End: 10-22-2023 Office outpatient new 30 minutes John Pineda MILITARY TECHNICIAN-LEGAL PRACTICE MANAGER Work Phone: [facility] General Surgery Comment on above: Family history [...] Not Ref Pr ov Start: 10-11-2018 Colonoscopy Johnshady núñez MILITARY TECHNICIAN-LEGAL PRACTICE MANAGER Work Phone: Plan of Treatment Date Care Activity Detail Author Start: 11-04-2028 Screening for malign ant neoplasm of colon Colonoscopy [facility] Start: 11-04-2024 Adult BMI Screening Adult BMI Screen ing [facility] Start: 11-04-2024 Tobacco Screening Tobacco Screening [facility] Start: 10-22-2024 Adult BMI Screening Adult BMI Screen ing [facility] Start: 10-22-2024 Tobacco Screening Tobacco Screening [facility] Start: 05-08-2024 COVID-19 Vaccine ( season) COVID-19 Vaccine ( season) [facility] Start: 05-08-2024 Influenza vaccination Influenza Vacc ine [facility] Start: 11-05-2023 End: 11-05-2023 Admission to same day surgery center 11/05/2023 11:00 AM EST - 11/05/2023 11:30 AM EST Surgery [facility] [address] [place] [id number] Nubia Nogueira, DO [address] [place] [address] COLONOSCOPY DIAGNOSTIC / SCREENING [60778 (CPT )] [facility] Comment on above: COLONOSCOPY DIAGNOST IC / SCREENING [72288 (CPT )] Start: 11-05-2023 End: 11-05-2023 Colonoscopy flx dx w/collj spec when pfrmd COLONOSCOPY DIAGNOSTIC / SCREENING Family history of colon cancer 11/05/2023 11:00 AM [facility] Start: 11-05-2023 Subsequent hospital visit by physician 11/05/2023 11:00 AM [facility] Hospital Encounter [facility] [address] [place] [id number] Nubia Nogueira, DO [address] [place] [address] [facility] Start: 10-29-2023 End: 10-29-2023 ambulatory 10/29/2023 2:10 PM EST Support Visit [facility] - Pre Admit [address] [place] [phone] [facility] - Pre Admit Start: 10-11-2023 Screening for malign ant neoplasm of colon Colonoscopy [facility] Start: 2010 Administration of varicella zoster vaccine Zoster (Shingles) Vaccine (1 of 2) [facility] Start: 1979 DTaP,Tdap and Td Vac cines (1 - Tdap) DTaP,Tdap and Td Vaccines (1 - Tdap) [facility] Start: 1978 Adult BMI Follow Up Plan Adult BMI Follow Up Plan [facility] Start: 1972 Depression Screening Depression Scre ening [facility] End: 10-22-2024 Colonoscopy Colonoscopy GI Routine Family history of malignant neoplasm of colon 1 Occurrences starting 10/22/2023 until 10/22/20[facility] Comment on above: 1 Occurrences starti ng 10/22/2023 until 10/22/2024 Immunizations Immunization Date Immunization Notes Care Provider Keny mata 06-17-2023 influenza virus vacc ine, unspecified formulation Not Ref Prov [facility] Payers Date Payer Category Payer Self-pay 2023 Managed Care Other (unspecified) [facility] [id number] 2023 Private Health Insurance [facility] CHOICE PLUS [id number] 2023-Present [phone] [address] [address] [place] [address] [id number] 1960 Unknown [id number] 2.16.840.1.568509.3.579. 2.593 1960 Unknown [id number] 2.16.840.1.775065.3.579. 2.593 1960 Unknown [id number] 2.16.840.1.631756.3.579. 2.593 1960 Unknown [id number] 2.16.840.1.097762.3.579. 2.593 1960 Unknown [id number] 2.16.840.1.210407.3.579. 2.593 1960 Unknown [id number] 2.16.840.1.124877.3.579. 2.593 1960 Unknown [id number] 2.16.840.1.064263.3.579. 2.593 1960 Unknown [id number] 2.16.840.1.421265.3.579. 2.1286 1960 Unknown [id number] 2.16.840.1.959405.3.579. 2.1286 1960 Unknown [id number] 2.16.840.1.735780.3.579. 2.1286 1960 Unknown [id number] 2.16.840.1.943758.3.579. 2.1286 1960 Unknown [id number] 2.16.840.1.120937.3.579. 2.1286 1959 Private Health Insurance [id number] 1959 Self-pay [id number] Social History Date Type Detail Facility [facility] Start: 1960 Sex Assigned At Female [facility] Start: 12-31-2022 End: 11-05-2023 Tobacco smoking status NHIS Ex-smoker [facility] Start: 08-28-1976 End: 08-28-1998 History of tobacco use Current smoker [facility] Start: 08-28-1976 End: 08-28-1998 History of tobacco use Cigarette Smoker [facility] Start: 12-31-2022 End: 11-05-2023 Tobacco use and exposure Smokeless tobacco non-user [facility] Start: 10-22-2023 End: 11-05-2023 Alcohol intake Current drinker of alcohol (finding) [facility] Start: 10-18-2020 End: 12-30-2021 History of Social function [facility] Work Phone: Start: 10-18-2020 End: 12-30-2021 Alcohol Use Disorder Identification Test - Consumption [AUDIT-C] [facility] Work Phone: How often to you hav e a drink containing alcohol? Monthly or less [facility] Work Phone: How many standard dr inks containing alcohol do you have on a typical day? 5 or 6 [facility] How often do you hav e 6 or more drinks on 1 occasion? Less than monthly [facility] Childcare Unknown [facility] Start: 09-28-2018 Alcohol Comment social [facility] Start: 1960 Sex Assigned At Not on file P [facility] Start: 09-22-2018 Sex Female (finding) [facility] Clinical Notes 10-22-2023 to 03-16-2024 Telephone Encounter - Anabell Herrera, [facility] - 03/02/2024 1:22 PM EDTTelephone Encounter - Anabell Herrera, [facility] - 03/02/2024 1:22 PM EDTTelephone Encounter - Anabell Herrera, [facility] - 03/02/2024 1:22 PM EDT Note Date [...] office with any additional questions. Agatha Vanegas [facility] 03/22/24 12:16 PM [facility] 03-16-2024 Note Spoke to pt, she is suppose to receive the shipment on 03/21. I will follow-up with her on 03/22 to make sure she doesn't have any further questions. Jerardo Quintero PharmD, JOELCP 03/18/24 11:27 AM [facility] [phone] [facility] 03-16-2024 Note High copay. Rx at [facility], [...] get it by Thursday. Jerardo Quintero PharmD, JOELCP 03/17/24 2:15 PM [facility] [phone] [facility] 03-16-2024 Note Prior Authorization for miesha has been approved 03/16/2024-04/15/2024. Case ID/Authorization Number: [id number] Urbano Mueller , [facility] 03/17/24 1:39 PM [facility] 03-16-2024 Note Specialty Pharmacy N ote: Miesha Supervising Physician & Clinic:?? BILLY Mills is a 63 y.o. year old female patient with PMH of: Recurrent C. Diff GERD Allergies Allergen Reactions Penicillins Swelling Sulfa (Sulfonamide Antibiotics) Swelling Lips swell PharmD consulted for evaluation of Miesha for treatment of recurrent C. diff (Diagnosis [...] for her after that. ? Jerardo Quintero, PharmD, BCACP 03/16/24 11:48 AM [facility] [phone] [facility] 03-11-2024 Note Subjective Patient ID: Deepa [...] past 36 hour(s)). No follow-ups on file. [facility] 03-02-2024 Miscellaneous Notes Formattin g of this [...] or tobacco which contributes to reflux disease. ThanksDr. Santiago If she has any questions she can make an appointment to see me. Spoke with patient regarding pathology results. Patient verbally understood with questions answered to the best of my ability. Will have Dr. Nogueira prescribe Omeprazole BID and send information on Cool's Esophagus in the mail. Recall to be put in chart. documented in this encounter [facility] 03-02-2024 Telephone encount er Note ----- Message from Dr. Nubia Nogueira, sent at 03/02/2024 9:20 AM EDT ----- [...] or tobacco which contributes to reflux disease. ThanksDr. Santiago If she has any questions she can make an appointment to see me. [facility] 03-02-2024 Telephone encount er Note Spoke with patient regarding pathology results. Patient verbally understood with questions answered to the best of my ability. Will have Dr. Nogueira prescribe Omeprazole BID and send information on Cool's Esophagus in the mail. Recall to be put in chart. [facility] 10-22-2023 History of Presen t illness Narrative [...] 10/11/2018 Performed by Nubia Nogueira DO at [facility] ESOPHAGOGASTRODUODENOSCOPY N/A 07/04/2021 Performed by Nubia Nogueira DO at [facility] HYSTERECTOMY 2008 OOPHORECTOMY Allergies Allergen Reactions [...] mouth daily., Disp: , Rfl: peg 3350-sod sulf,ehdl-kkp-ken 178.7-7.3-0.5 gram recon soln, Take 1 kit [...] patient/family/caregiver Referring and communicating with other health direct care staffer Family history of malignant neoplasm of colon [Z80.0] BETTY SMITH [facility] General Surgery [place] This note was created with the assistance of a speech recognition program. While intending to generate a timely document that accurately reflects the content of the visit, no guarantee can be provided that every grammatical or spelling mistake has been or will be identified or corrected. Thank you for your understanding. BETTY Smith 10/22/23 1550 documented in this encounter [facility] Evaluation note No assessment inform ation available [facility] Work Phone: Evaluation note Diagnosis Family history [...] and content) DATE CREATED AUTHOR 12/28/2022 [facility] DATE CREATED AUTHOR AUTHOR'S ORGANIZ ATION 10/28/2023 [facility] DATE CREATED AUTHOR AUTHOR'S ORGANIZ ATION 11/07/2023 [facility] DATE CREATED AUTHOR AUTHOR'S ORGANIZ ATION 02/20/2024 [facility] DATE CREATED AUTHOR AUTHOR'S ORGANIZ ATION 02/22/2024 [facility] DATE CREATED AUTHOR AUTHOR'S ORGANIZ ATION 03/28/2024 [facility] Care Teams (unrecognized sec tion and content) Team Status: Inactive Member Role Status Dates Nubia Nogueira DO Attending Provider Active Start: February 19, 2024 End: February 19, 2024 [employer] Relationship Specialty Start Date End Date Real Kimball MD [address] [place] [address] PCP - General Family Medicine 09/22/18 [employer] Relationship Specialty Start Date End Date Real Kimball MD [address] [place] [address] PCP - General Family Medicine 09/22/18 [employer] Relationship Specialty Start Date End Date Real Kimball MD [address] [place] [address] PCP - General Family Medicine 09/22/18 [employer] Relationship Specialty Start Date End Date Real Kimball MD [address] [place] [address] PCP - General Family Medicine 09/22/18 [employer] Relationship Specialty Start Date End Date Real [...] recall, fa tushar history of colon cancer Reason Comments Med Refill FOR RECORDS PERTAINING TO PATIENTS WHO ARE [...] BE BASED ON THE PRIMARY CLINICAL RECORDS. [facility] provides no warranty or guarantee of the accuracy or completeness of information in this document.
--- NOTE | 2024-11-02 11:09 | PC.NURSE ---
Nursing Note Cardiac Stress Test Reviewed: Medication, allergies and patient history reviewed. Stress Test: [x ] Patient tolerated stress test well. [ ] Patient unable to tolerate walking on treadmill. Switched to Lexiscan stress test. [x ] No chest pain noted per patient [ ] Chest pain that resolved prior to leaving stress lab. [ ] No dyspnea noted. [x ] Dyspnea that resolved prior to leaving stress lab. [ x] Patient left stress lab asymptomatic and hemodynamically stable. [ ] Patient taken to the Emergency Room due to non-resolving symptoms following stress test. [ x] Patient achieved target heart rate. [ ] Patient unable to achieve target heart rate. [ ] Aminophylline administered as reversal agent to Lexiscan (Regadenoson). [ ] Nitro administered. Nursing Comments:Pt had Cardiolite stress test done. Tolerated well. Pt had no CP but had some SOB that she states is normal for her with activity. SOB resolved within 3 minutes of rest. Pt ambulated to cafeteria for breakfast prior to second set of images. No distress noted.
== END 2024-11-02 08:35 | disposition home or self-care (01) ==
LOC: NM 08:34
PROVIDERS: PCP Family Medicine; Visit Provider Family Medicine
DX: I25.9 Chronic ischemic heart disease, unspecified (principal)
CPT/HCPCS: 78452; 93017; A9500

== ENCOUNTER 2024-11-16 09:03 | Outpatient (OUT) | payer OTHER, SELFPAY ==
--- NOTE | 2024-11-16 09:00 | CA_ITS ---
Patient Name: DEEPA ZAYAS MR#: [id number] : 1960 Exam Date: 11/16/2024 Ordering Doctor: DR. DAXA LANE M.D. ECHOCARDIOGRAM REPORT PROCEDURE: CA ECHO DOPPLER COMPLETE INDICATIONS: Abnormal ECG COMPARISON: None. DESCRIPTION: COMPLETE ECHOCARDIOGRAM Real-time transthoracic echocardiography with 2D, M-mode, spectral and color flow Doppler performed. QUALITY: Technical quality was good. LEFT VENTRICLE: Normal chamber size. Normal left ventricular wall thickness. LV EF: Global left ventricular systolic function is severely reduced; visually estimated ejection fraction is 20 to 25%. Diffuse global hypokinesis. The septum is abnormal in motion; may be related to underlying bundle branch block. DIASTOLIC: Grade II diastolic dysfunction. ATRIAL SEPTUM: Visually appears intact. LEFT ATRIUM: Moderate dilatation. RIGHT ATRIUM: Normal chamber size. RIGHT VENTRICLE: Normal chamber size. Normal right ventricular systolic function. TRICUSPID VALVE: Normal mobility and thickness. No stenosis with trivial regurgitation. Doppler studies reveal mildly (35-45) elevated right sided pressures. RVSP 44 mmHg MITRAL VALVE: Normal mobility and thickness. No evidence of mitral valve stenosis. Mild mitral annular calcification. Mild mitral regurgitation. AORTIC VALVE: Normal trileaflet appearance. No visible sclerosis. Normal leaflet mobility. No evidence of aortic valve stenosis. No aortic regurgitation. AORTIC ROOT: Normal diameter and appearance. PULMONIC VALVE: Normal thickness and mobility. No stenosis. No regurgitation. PERICARDIUM: No evidence of pericardial effusion. IVC: IVC is normal in size, does not collapse. CONCLUSION: 1. Global left ventricular systolic function is severely reduced; visually estimated ejection fraction is 20 to 35% 2. Normal right ventricular size and systolic function 3. Moderate left atrial dilatation 4. Grade 2 diastolic dysfunction 5. Mildly elevated right ventricular systolic pressure; RVSP 44 mmHg 6. Mild mitral regurgitation Adult Echocardiography Procedure Report Left Ventricle LVEDD (3.7 - 5.6 cm): 4.74 cm LVESD (2.2 - 4.0 cm): 3.09 cm LVIVS thickness (0.6 - 1.2 cm): 1.18 cm LVPW thickness (0.5 - 1.0 cm): 0.98 cm e': 0.07 m/s E - e': 9.56 LVOT Max Gradient: 2.23 mm[Hg] LVOT Area (cm2): 0.75 m/s Peak Velocity (LVOT): 0.75 m/s Mean Velocity (LVOT): 0.51 m/s LVOT Diameter 1.89 cm Left Atrium LA Volume Index (2D A2C): 46.10 ml/m2 Left Atrium Systolic Dimension: 3.39 cm Mitral Valve MV E to A Ratio: 0.74 Mitral Valve A-Wave Peak Velocity: 0.87 m/s Mitral Valve E-Wave Peak Velocity: 0.65 m/s Right Ventricle Aorta AO Root Diam: 3.40 cm Aortic Valve AoV Area (Peak Mark): 1.97 cm2, 1.97 cm2 AoV Area (VTI): 2.31 cm2, 2.31 cm2 Peak Velocity(Antegrade Flow): 1.06 m/s Peak Gradient(Antegrade Flow): 4.53 mm[Hg] Mean Velocity(Antegrade Flow): 0.71 m/s Mean Gradient(Antegrade Flow): 2.34 mm[Hg] Velocity Time Integral: 20.04 cm Tricuspid Valve Peak Velocity (Regurgitant Flow): 2.94 m/s, 2.99 m/s Pulmonic Valve Peak Velocity: 0.78 m/s Peak Gradient: 2.45 mm[Hg] Right Atrium Right Atrium Systolic Pressure: 40.53 ml, 40.53 ml Dictated by: Evelin Rockwell M.D. on 11/16/2024 at 11:57 Approved by: Evelin Rockwell M.D. on 11/16/2024 at 12:01
--- OUTSIDE RECORDS SUMMARY | 2024-11-16 09:20 | XMS_ITS | CCD ---
Author Organization [facility] Care Team Providers Care Porcelain Enamel Sprayer Name Role Phone AVERY MCKNIGHT Attending Unavailable HOY ., DR NOBLE Primary Care Unavailable KAYLI ., DEEPTI PHILLIP Consulting Unavailgeorgi e AVERY MCKNIGHT Admitting Unavailable STRAWSERHERNÁN Consulting Unavailable HOY ., [...] HOY ., DR NOBLE Primary Care Unavailable HUBBARD, DR CALLY Aguila Consulting Unavailable HOY ., [...] Care Unavailable CALLY ARREAGA Attending Unavailable HOY, RAEL M Primary Care Unavailable NUBIA NOGUEIRA Attending Unavailable NUBIA NOGUEIRA E Referring Unavailable HOY, REAL M Primary Care Unavailable DO Nubia Nogueira Attending Provider [phone] Nubia Nogueira Admitting Unavailable Nubia Nogueira Attending Unavailable Real Kimball MD Primary Care Provider [phone] Real Kimball MD Primary Care Provider [phone] BARBARA LICEA Attending Unavailable DAXA LANE Attending Unavailable Allergies Allergy Classification Reported Allergen(s) Allergy Type Date of Onset Reaction(s) Facility (1 source) Penicillin Drug Allergy [facility] Repository (1 source) Sulfonamides (Antibiotic) Drug allergy (disorder) [facility] Repository (9 sources) Penicillins; Translations: [PENICILLINS] Propensity to adverse reactions to drug (disorder) 1 [facility]elling [facility] Repository (9 sources) Sulfonamides (Antibiotic); Translations: [SULFA (SULFONAMIDE ANTIBIOTICS)] Propensity to adverse reactions to drug (disorder) 9 [facility] Repository (8 sources) SULFABENZAMIDE; Translations: [SULFABENZAMIDE] Propensity to adverse reactions to drug (disorder) 9 [facility] Medications Current Medications Medication Drug Class(es) Dates Sig (Normalized) Sig (Original) lactobacillus acidophilus [id number] unt / pectin 100 mg oral tablet [...] Translations: [ACUTE BRONCHITIS UNSPECIFIED] Onset: 04-05-2022 Episodic Disorders of lipid metabolism (2 sources) Mixed hyperlipidemia; Translations: [Mixed hyperlipidemia] Onset: 11-07-2024 Chronic Other screening for suspected conditions (not mental disorders or infectious disease) (7 sources) Encounter for screening mammogram for malignant [...] Other Problems Problem Classification Problem Date Documented Date Episodic/Chronic Intestinal infection (2 sources) Enterocolitis due to Clostridium difficile, not specified as recurrent; Translations: [Enterocolitis due to Clostridium difficile, not specified as recurrent] Onset: 03-11-2024 Episodic Other aftercare (1 source) Other skilled nursing (current) drug therapy; Translations: [OTH ASSISTED CURRENT DRUG THERAPY] Onset: 04-15-2022 Episodic Other [...] Test Name Value Interpretation Reference Range Facility Office Visiton 11-07-2024 Follow-up visit [id number] Deepa Sears 1960 F Date Provider Department Center 11/07/[id number] C[facility] Family History Problem Relation Age of Onset Heart attack Maternal Grandmother Hypertension Maternal Grandmother Other Maternal Grandfather Family Status - Relation Status Age at Maternal Grandmother Maternal Grandfather Level of Service:70876 SD OFFICE/OUTPATIENT NEW MODERATE MDM 45 MINUTES Reason for Visit and Comments: Cardiac Stress Test [489] - Denies chest pain and SOB. Abnormal ECG [293] - She had ECG on 10/25 for pre-surgery testing. Dr. Kimball ordered stress test due to abnormal ECG. Edema [[id number]] Palpitations [284550] - Feels palpitations sometimes in the mornings when she's still lying in bed. [facility] 36on 03-24-2024 36 Patient called in stating that she needs this letter in by today as it needs to be turned in two business days before hand. [facility] 36 Patient calling in to [...] would have started the Vowst on 03/20/24. [facility] 36on 03-17-2024 36 Patient called [...] dosage of Vowst as well. Please advise. [facility] Documentationon 03-16-2024 Documentation [id number] Deepa Sears 1960 F Date Provider Department Center 03/16/2024 Nati5-JERARDO MANRIQUEZ None No family history on file Reason for Visit and Comments: Specialty Pharmacy Note: Vowst [Other] [facility] 36on 03-15-2024 36 Patient calling [...] Something needs to be done. Please advise [facility] Telephoneon 03-15-2024 Telephone [phone] Deepa Sears 1960 F Date Provider Department Center 03/15/2024 [facility]IS [facility] No family history on file [facility] Office Visiton 03-11-2024 Follow-up visit [id number] Deepa Sears 1960 F Date Provider Department Center 03/11/2024 BARBARA REIS [facility] No family history on file Level of Service:73494 SD OFFICE/OUTPATIENT NEW LOW MDM 30 MINUTES Reason for Visit and Comments: New Patient [632] GERD [[id number]] - C Diff Vowst candidate Normal [facility] [place] 02-19-2024 L Specimen: [id number] Received: 02/19/24 Status: THOMAS Req Num: [id number] Spec Type: Surgical Subm Dr: Nubia Nogueira DO Tissues: A Stomach - Biopsy/Polyp (ANTRUM) B Esophagus Biopsy (GE JUNCTION) Procedures: HE/4, Gross/Micro L4/2 Age/ Patient Sex Location Account Attending Physician Deepa Sears 63/F [place] [id number] Nubia Nogueira DO SPEC NUM: [id number] RECD: 02/19/24 STATUS: THOMAS SCHMITTHayley NUM: [id number] PREETI: 02/19/24 [facility] DR: Nubia Nogueira DO ENTERED: 02/19/[address] [facility] [address]: Nile Allen SPEC TYPE: Surgical DEPT: [...] Mild gastritis and esophagitis, hiatal hernia Specimen: [id number] Received: 02/19/24 Status: THOMAS Sy Num: [id number] Spec Type: Surgical Subm Dr: Nubia Nogueira DO Tissues: A Stomach - Biopsy/Polyp (ANTRUM) B Esophagus Biopsy (GE JUNCTION) Procedures: CRISTIN, Gross/Micro L4/2 Patient: Deepa Sears [id number] (Continued) Specimen: [id number] Received: 02/19/24 (Continued) Signed (signatur e on file) Darshan Iniguez MD 02/22/242036 Specimen: [id number] Received: 02/19/24 Status: THOMAS Sy Num: [id number] Spec Type: Surgical Subm Dr: Nubia Nogueira DO Tissues: A Stomach - Biopsy/Polyp (ANTRUM) B Esophagus Biopsy (GE JUNCTION) Procedures: HE/4, Gross/Micro L4/2 Patient: Deepa Sears [id number] (Continued) Specimen: [id number] Received: 02/19/24-4763 (Continued) Gross Description Received are 2 formalin [...] 0.1 cm, entirely submitted in B1. TW CPT Codes 57535P8 Specimen: [id number] Received: 02/19/24 Status: THOMAS Sy Num: [id number] Spec Type: Surgical Subm Dr: Nubia Nogueira, Tissues: A Stomach - Biopsy/Polyp (ANTRUM) B Esophagus Biopsy (GE JUNCTION) Procedures: HE/4, Gross/Micro L4/2 Patient: Deepa Sears Jim [id number] (Continued) Signed (signatur e on file) Darshan Iniguez MD 02/22/242036 Normal [facility] Surgical PathologyOrdered By : Sheron Molina on 02-19-2024 [employer] XR CHEST 2 Von 12-24-2022 XR CHEST [...] by: EDDIE OROSCO Date: 2022-12-24 16:25 Normal [facility] MAMM SCREEN 3D DALE CADon 10-20-2022 MG MAMM SCREEN 3D DALE CAD Patient: DEEPA SEARS Exam Date: 10/20/2022 : 1960 Gender:F Ordering : DR REAL KIMBALL . Admission #: [id number] Family : Order #: [id number] CLICK HERE TO VIEW EXAM RADIOLOGY REPORT [...] breast cancer at age 70. LOCATION: [facility] BREAST COMPOSITION: Heterogeneously dense,which may obscure [...] MD on 10/20/2022 at 12:00 Normal [facility] Covid-19 PCR (CVDTB)on SARS-CoV-2 (COVID-19) RNA EMMANUEL+probe Ql (Unsp spec) Not detected Normal NOT DETECTED [facility] Comment on above: Result Comment: When [...] for this test is supported by the Regulatory Product Manager of Health and Human Service's declaration that [...] used). Performed By: #### C VDTBH #### [facility] [address] [place] [address] Dr. Cindi Iniguez INFLUENZA A AND B AGon 10-08 [facility] SEE BELOW Normal [facility] Comment on above: Result Comment: Nega tive for Flu A protein angiten. Infection due to Flu A cannot be ruled out. Flu A angiten in the sample may be below the detection limit of the test. Performed By: #### C MP, BNP, HSTROPN #### [facility] [address] [place] [address] Dr. Cindi Iniguez INFLUBNEG SEE BELOW Normal [facility] Comment on above: Result Comment: Nega tive for Flu B protein antigen. Infection due to Flu B cannot be ruled out. Flu B antigen in the sample may be below the detection limit of the test. Performed By: #### C MP, BNP, HSTROPN #### [facility] [address] [place] [address] Dr. Cindi Iniguez INFLUENZA A AG Negative Normal NEGATIVE SEE COMMENT [facility] Comment on above: Performed By: #### C MP, BNP, HSTROPN #### [facility] [address] [place] [address] Dr. Cindi Iniguez INFLUENZA B AG Negative Normal NEGATIVE SEE COMMENT [facility] Comment on above: Performed By: #### C MP, BNP, HSTROPN #### [facility] [address] [place] [address] Dr. Cindi Iniguez Covid-19 PCR ([facility])on 07-09 SARS-CoV-2 (COVID-19) RNA EMMANUEL+probe Ql (Unsp spec) Not detected Normal NOT DETECTED [facility] Comment on above: Result Comment: When [...] for this test is supported by the [place] of Health and Human Service's declaration that [...] used). Performed By: #### C VDTBH #### [facility] [address] [place] [address] Dr. Cindi Iniguez BNPon 04-14-2022 Natriuretic peptide B (Bld) [Mass/Vol] 583.0 pg/mL Normal <=900.0 [facility] Comment on above: Performed By: #### C MP, BNP, HSTROPN #### [facility] [address] [place] [address] Dr. Cindi Iniguez CBC AUTO DIFFon 04-14-2022 BASO # 0.0 103/ul Normal 0.0-0.1 [facility] Comment on above: Performed By: #### C BC #### [facility] [address] [place] [address] Dr. Cindi Iniguez Basophils/100 WBC (Bld) 0.2 % Normal 0.2-2.0 [facility] Comment on above: Performed By: #### C BC #### [facility] [address] [place] [address] Dr. Cindi Iniguez EO # 0.0 103/ul Normal 0.0-0.7 [facility] Comment on above: Performed By: #### C BC #### [facility] [address] [place] [address] Dr. Cindi Iniguez Eosinophils/100 WBC (Bld) 0.3 % Critically low 0.9-7.0 [facility] Comment on above: Performed By: #### C BC #### [facility] [address] [place] [address] Dr. Cindi Iniguez Erythrocyte distribution width (RBC) [Ratio] 12.6 % Normal 11.0-15.0 [facility] Comment on above: Performed By: #### C BC #### [facility] [address] [place] [address] Dr. Cindi Iniguez Hematocrit (Bld) [Volume fraction] 43.3 % Normal 36.0-48.0 [facility] Comment on above: Performed By: #### C BC #### [facility] [address] [place] [address] Dr. Cindi Iniguez Hemoglobin (Bld) [Mass/Vol] 14.5 g/dL Normal 12.0-16.0 [facility] Comment on above: Performed By: #### C BC #### [facility] [address] [place] [address] Dr. Cindi Iniguez IG # 0.07 10e3/ul Critically high 0.00-0.03 [facility] Comment on above: Performed By: #### C BC #### [facility] [address] [place] [address] Dr. Cindi Iniguez IG % 0.5 % Normal 0.0-0.5 [facility] Comment on above: Performed By: #### C BC #### [facility] [address] [place] [address] Dr. Cindi Iniguez LYMPH # 1.8 103/ul Normal 1.2-3.8 [facility] Comment on above: Performed By: #### C BC #### [facility] [address] [place] [address] Dr. Cindi Iniguez Lymphocytes/100 WBC (Bld) 12.9 % Critically low 20.5-60.0 [facility] Comment on above: Performed By: #### C BC #### [facility] [address] [place] [address] Dr. Cindi Iniguez MANUAL DIFF REQ NO Normal [facility] Comment on above: Performed By: #### C BC #### [facility] [address] [address] [address] Cindi Iniguez MCH (RBC) [Entitic mass] 30.5 pg Normal 26.7-34.0 [facility] Comment on above: Performed By: #### C BC #### [facility] [address] [address] [address] Cindi Iniguez MCHC (RBC) [Mass/Vol] 33.5 g/dL Normal 29.9-35.2 [facility] Comment on above: Performed By: #### C BC #### [facility] [address] [address] [address] Cindi Iniguez MCV (RBC) [Entitic vol] 91.0 fL Normal 81.0-99.0 [facility] Comment on above: Performed By: #### C BC #### [facility] [address] [place] [address] Dr. Cindi Iniguez MONO # 1.0 103/ul Critically high 0.3-0.8 [facility] Comment on above: Performed By: #### C BC #### [facility] [address] [place] [address] Dr. Cindi Iniguez Monocytes/100 WBC (Bld) 7.1 % Normal 1.7-12.0 [facility] Comment on above: Performed By: #### C BC #### [facility] [address] [place] [address] Dr. Cindi Iniguez NEUT # 10.9 103/ul Critically high 1.4-6.5 [facility] Comment on above: Performed By: #### C BC #### [facility] [address] [place] [address] Dr. Cindi Iniguez Neutrophils/100 WBC (Bld) 79.0 % Critically high 43.0-75.0 [facility] Comment on above: Performed By: #### C BC #### [facility] [address] [place] [address] Dr. Cindi Iniguez Platelet mean volume (Bld) [Entitic vol] 8.8 fL Critically low 9.5-13.5 [facility] Comment on above: Performed By: #### C BC #### [facility] [address] [place], [place] [address] Dr. Cindi Iniguez PLT 207 103/ul Normal 150-450 [facility] Comment on above: Performed By: #### C BC #### [facility] [address] [place], [place] [address] Dr. Cindi Iniguez RBC 4.76 106/ul Normal 4.20-5.40 [facility] Comment on above: Performed By: #### C BC #### [facility] [address] [place], [place] [address] Dr. Cindi Iniguez WBC 13.8 103/ul Critically high 4.0-11.0 [facility] Comment on above: Performed By: #### C BC #### [facility] [address] [place], [place] [address] Dr. Cindi Iniguez CTA CHEST WO W [...] HERNÁN BAR Date: 2022-04-14 16:28 Normal [facility] PROF 14(COMP METB)on Albumin [Mass/Vol] 3.5 g/dL Normal 3.4-5.0 [facility] Comment on above: Performed By: #### C MP, BNP, HSTROPN #### [facility] [address] [address] [address] Cindi Iniguez Albumin/Globulin [Mass ratio] 1.0 {ratio} Normal [facility] Comment on above: Performed By: #### C MP, BNP, HSTROPN #### [facility] [address] [address] [address] Cindi Iniguez ALP [Catalytic activity/Vol] 64 U/L Normal 46-116 [facility] Comment on above: Performed By: #### C MP, BNP, HSTROPN #### [facility] [address] [address] [address] Cindi Iniguez ALT [Catalytic activity/Vol] 44 U/L Normal 14-59 [facility] Comment on above: Performed By: #### C MP, BNP, HSTROPN #### [facility] [address] [place] [address] Dr. Cindi Iniguez Anion gap [Moles/Vol] 12.5 mmol/L Normal [facility] Comment on above: Performed By: #### C MP, BNP, HSTROPN #### [facility] [address] [address] [address] Cindi Iniguez AST [Catalytic activity/Vol] 21 U/L Normal 15-37 [facility] Comment on above: Performed By: #### C MP, BNP, HSTROPN #### [facility] [address] [address] [address] Cindi Iniguez Bilirubin [Mass/Vol] 0.3 mg/dL Normal 0.2-1.0 [facility] Comment on above: Performed By: #### C MP, BNP, HSTROPN #### [facility] [address] [address] [address] Cindi Iniguez Calcium [Mass/Vol] 9.1 mg/dL Normal 8.5-10.1 [facility] Comment on above: Performed By: #### C MP, BNP, HSTROPN #### [facility] [address] [address] [address] Cindi Iniguez Chloride [Moles/Vol] 97 mmol/L Critically low 98-107 [facility] Comment on above: Performed By: #### C MP, BNP, HSTROPN #### [facility] [address] [address] [address] Cindi Iniguez CO2 [Moles/Vol] 29.8 mmol/L Normal 21.0-32.0 [facility] Comment on above: Performed By: #### C MP, BNP, HSTROPN #### [facility] [address] [address] [address] Cindi Iniguez Creatinine [Mass/Vol] 1.06 mg/dL Critically high 0.55-1.02 [facility] Comment on above: Performed By: #### C MP, BNP, HSTROPN #### [facility] [address] [place] [address] Dr. Cindi Iniguez EGFR-AF EGYPTIAN >60 Normal >=60 [facility] Comment on above: Performed By: #### C MP, BNP, HSTROPN #### [facility] [address] [place] [address] Dr. Cindi Iniguez EGFR-NON AF EGYPTIAN 53 mL/min/1.73m2 Critically low >=60 [facility] Comment on above: Performed By: #### C MP, BNP, HSTROPN #### [facility] [address] [place] [address] Dr. Cindi Iniguez Globulin (S) [Mass/Vol] 3.6 g/dL Normal [facility] Comment on above: Performed By: #### C MP, BNP, HSTROPN #### [facility] [address] [place] [address] Dr. Cindi Iniguez Glucose [Mass/Vol] 109 mg/dL Critically high 74-106 [facility] Comment on above: Performed By: #### C MP, BNP, HSTROPN #### [facility] [address] [place] [address] Dr. Cindi Iniguez Potassium [Moles/Vol] 4.3 mmol/L Normal 3.5-5.1 [facility] Comment on above: Performed By: #### C MP, BNP, HSTROPN #### [facility] [address] [place] [address] Dr. Cindi Iniguez Protein [Mass/Vol] 7.1 g/dL Normal 6.4-8.2 [facility] Comment on above: Performed By: #### C MP, BNP, HSTROPN #### [facility] [address] [place] [address] Dr. Cindi Iniguez Sodium [Moles/Vol] 135 mmol/L Critically low 136-145 [facility] Comment on above: Performed By: #### C MP, BNP, HSTROPN #### [facility] [address] [place] [address] Dr. Cindi Iniguez Urea nitrogen [Mass/Vol] 17.0 mg/dL Normal 7.0-18.0 [facility] Comment on above: Performed By: #### C MP, BNP, HSTROPN #### [facility] [address] [place] [address] Dr. Cindi Iniguez Urea nitrogen/Creatinine [Mass ratio] 16.0 mg/mg Normal [facility] Comment on above: Performed By: #### C MP, BNP, HSTROPN #### [facility] [address] [place] [address] Dr. Cindi Iniguez PROTIMEon 04-14-2022 INR Coag (PPP) [Relative time] 0.93 {INR} Normal [facility] Comment on above: Performed By: #### P TT, PT #### [facility] [address] [place] [address] Dr. Cindi Iniguez INR GUIDELINES SEE BELOW Normal [facility] Comment on above: Result Comment: MESSI RED INR: 2.0 - 3.0 CONDITIONS NOT LISTED BELOW 2.5 - 3.5 FOR PROSTHETIC HEART VALVE REPLACEMENT 2.5 - 3.5 RECURRENT THROMBOSIS Performed By: #### P TT, PT #### [facility] [address] [place] [address] Dr. Cindi Iniguez PT Coag (PPP) [Time] 10.1 s Normal 9.0-11.6 [facility] Comment on above: Performed By: #### P TT, PT #### [facility] [address] [place] [address] Dr. Cindi Iniguez PTTon 04-14-2022 aPTT Coag (Bld) [Time] 23.8 s Normal 22.3-36.2 [facility] Comment on above: Performed By: #### C MP, BNP, HSTROPN #### [facility] [address] [place] [address] Dr. Cindi Iniguez TROPONIN, HIGH SENSITIVITYon 04-14-2022 HSTROP 27.4 pg/mL Normal 4.0-51.3 [facility] Comment on above: Result Comment: CUT- OFF POINTS HAVE BEEN ESTABLISHED BASED ON THE FOURTH UNIVERSAL DEFINITIONS OF MYOCARDIAL INFARCTION. THE UPPER REFERENCE LIMIT (URL) OF TROPONIN, DEFINED THE 99TH PERCENTILE OF cTnI DISTRIBUTION IN A REFERENCE POPULATION, HAS BEEN CONFIRMED THE DECISION THRESHOLD FOR [place] DIAGNOSIS. Performed By: #### C MP, BNP, HSTROPN #### [facility] [address] [place] [address] Dr. Cindi Iniguez Covid-19 PCR (CVDTBH)on 03-08 SARS-CoV-2 (COVID-19) RNA EMMANUEL+probe Ql (Unsp spec) Detected Critically abnormal NOT DETECTED [facility] Comment on above: Result Comment: This test is not yet approved or cleared by the [place] FDA. When there are no FDA-approved or cleared tests available, and other criteria are met, FDA can make tests available under an emergency access mechanism called an Emergency Use Authorization (EUA). The EUA for this test is supported by the Regulatory Product Manager of Health and Human Service's (HHS's) declaration [...] By: #### C MP, BNP, HSTROPN #### [facility] [address] [place] [address] Dr. Cindi Iniguez Vital Signs Date Time Vital Sign Value Performing Clinician Derick kemp 10-22-2023 15:23-0500 Body mass index (BMI) [Ratio] 36.39 kg/m2 John Pineda ATTORNEY LAWYER-CERTIFIED MEDICINE AIDE Work Phone: [facility] 10-22-2023 15:23-0500 Body weight 96.16 kg John Pineda ATTORNEY LAWYER-CERTIFIED MEDICINE AIDE Work Phone: [facility] Encounters Encounter Date Encounter Type Care Provider Facility Start: 11-07-2024 End: 11-07-2024 ambulatory [facility] Start: 07-13-2024 End: 07-13-2024 Refill Nubia Nogueira DO Work Phone: [facility] Start: 05-06-2024 End: 05-06-2024 Refill Nubia Nogueira DO Work Phone: [facility] Start: 03-11-2024 End: 03-11-2024 ambulatory [facility] Start: 03-02-2024 End: 03-02-2024 Orders Only Not In System Ref Prov [facility] Start: 02-19-2024 End: 02-19-2024 ambulatory Nubia Nogueira [facility] Work Phone: Start: 02-19-2024 End: 02-19-2024 Departed Referred DO Nubia Nogueira Work Phone: [facility] Start: 11-06-2023 End: 11-06-2023 Evaluation and management of inpatient CALLY ARREAGA [facility] Start: 11-05-2023 End: 11-06-2023 Evaluation and management of inpatient NUBIA NOGUEIRA [facility] Start: 10-22-2023 ambulatory [facility] Jennifer PINEDA [facility] Start: 10-22-2023 End: 10-22-2023 Office outpatient new 30 minutes John Pineda ATTORNEY LAWYER-CERTIFIED MEDICINE AIDE Work Phone: [facility] Comment on above: Family history of ma lignant neoplasm of colon (Primary Dx) Start: 12-24-2022 End: 12-25-[address] REAL KIMBALL . Facility:[facility] Start: 10-20-2022 End: 10-21-[address] REAL KIMBALL . Facility:[facility] Start: 10-08-2022 End: 10-08-[address] REAL KIMBALL . Facility:[facility] Start: 08-05-2022 End: 08-05-2022 ambulatory CASANDRA ALEJANDRO Facility:[facility] Start: 04-14-2022 End: 04-14-2022 ambulatory AVERY MCKNIGHT Facility:[facility] Start: 04-02-2022 End: 04-02-[address] REAL KIMBALL . Facility:[facility] Start: 02-20-[address] REAL KIMBALL . Facili ty:[facility]1 Procedures Date Procedure Procedure Detail Performing Clinician Start: 02-19-2024 Level i surg patholo gy gross examination only Not In System Ref Prov Start: 11-05-2023 Colonoscopy Not Ref Pr ov Start: 10-11-2018 Colonoscopy Johnomari núñez ATTORNEY LAWYER-CERTIFIED MEDICINE AIDE Work Phone: Plan of Treatment Date Care Activity Detail Author Start: 11-04-2028 Screening for malign ant neoplasm of colon Colonoscopy [facility] Start: 11-04-2024 Adult BMI Screening Adult BMI Screen ing [facility] Start: 11-04-2024 Tobacco Screening Tobacco Screening [facility] Start: 10-22-2024 Adult BMI Screening Adult BMI Screen ing [facility] Start: 10-22-2024 Tobacco Screening Tobacco Screening [facility] Start: 05-08-2024 COVID-19 Vaccine ( season) COVID-19 Vaccine ( season) [facility] Start: 05-08-2024 Influenza vaccination Influenza Vacc ine [facility] Start: 11-05-2023 End: 11-05-2023 Admission to same day surgery center 11/05/2023 11:00 AM EST - 11/05/2023 11:30 AM EST Surgery [facility] - Surgery [address] [place] [id number] Nubia Nogueira, DO [address], [place] [id number] COLONOSCOPY DIAGNOSTIC / SCREENING [84122 (CPT )] [facility] Comment on above: COLONOSCOPY DIAGNOST IC / SCREENING [85095 (CPT )] Start: 11-05-2023 End: 11-05-2023 Colonoscopy flx dx w/collj spec when pfrmd COLONOSCOPY DIAGNOSTIC / SCREENING Family history of colon cancer 11/05/2023 11:00 AM EST [facility] Start: 11-05-2023 Subsequent hospital visit by physician 11/05/2023 11:00 AM EST Hospital Encounter [facility] [address] [place] [id number] Nubia Nogueira, DO [address], [place] [id number] [facility] Start: 10-29-2023 End: 10-29-2023 ambulatory 10/29/2023 2:10 PM EST Support Visit [facility] Admit [address] [place] [id number] [facility] Pre Admit Start: 10-11-2023 Screening for malign ant neoplasm of colon Colonoscopy [facility] Start: 2010 Administration of varicella zoster vaccine Zoster (Shingles) Vaccine (1 of 2) [facility] Start: 1979 DTaP,Tdap and Td Vac cines (1 - Tdap) DTaP,Tdap and Td Vaccines (1 - Tdap) [facility] Start: 1978 Adult BMI Follow Up Plan Adult BMI Follow Up Plan [facility] Start: 1972 Depression Screening Depression Scre ening [facility] End: 10-22-2024 Colonoscopy Colonoscopy GI Routine Family history of malignant neoplasm of colon 1 Occurrences starting 10/22/2023 until 10/22/2024 [facility] Work Phone: Comment on above: 1 Occurrences starti ng 10/22/2023 until 10/22/2024 Immunizations Immunization Date Immunization Notes Care Provider Keny mata 06-17-2023 influenza virus vacc ine, unspecified formulation Not Ref Prov [facility] Payers Date Payer Category Payer Self-pay 2023 Managed Care Other (unspecified) [facility] [id number] 2023 Private Health Insurance [facility] PL[facility] [id number] 2023-Present [phone] [place] [id number] 1960 Unknown [id number] [id number]. 2.593 1960 Unknown [id number] 2.16.840.1.723917.3.579. 2.593 1960 Unknown [id number] 2.16.840.1.176028.3.579. 2.593 1960 Unknown [id number] 2.16.840.1.305220.3.579. 2.593 1960 Unknown [id number] 2.16.840.1.137486.3.579. 2.593 1960 Unknown [id number] 2.16.840.1.963747.3.579. 2.593 1960 Unknown [id number] 2.16.840.1.453271.3.579. 2.593 1960 Unknown [id number] 2.16.840.1.023506.3.579. 2.1286 1960 Unknown [id number] 2.16.840.1.422448.3.579. 2.1286 1960 Unknown [id number] 2.16.840.1.783869.3.579. 2.1286 1960 Unknown [id number] 2.16.840.1.990035.3.579. 2.1286 1960 Unknown [id number] 2.16.840.1.181051.3.579. 2.1286 1959 Private Health Insurance [id number] Self-pay [id number] Social History Date Type Detail Facility Tobacco smoking stat us [facility] Unknown if ever smoked [facility] Start: 1960 Sex Assigned At Female [facility] Start: 12-31-2022 End: 11-05-2023 Tobacco smoking status NHIS Ex-smoker [facility] Start: 08-28-1976 End: 08-28-1998 History of tobacco use Current smoker [facility] Start: 08-28-1976 End: 08-28-1998 History of tobacco use Cigarette Smoker [facility] Start: 12-31-2022 End: 11-05-2023 Tobacco use and exposure Smokeless tobacco non-user [facility] Start: 10-22-2023 End: 11-05-2023 Alcohol intake Current drinker of alcohol (finding) [facility] Start: 10-18-2020 End: 12-30-2021 History of Social function [facility] Work Phone: Start: 10-18-2020 End: 12-30-2021 Alcohol Use Disorder Identification Test - Consumption [AUDIT-C] [facility] Work Phone: How often to you hav e a drink containing alcohol? Monthly or less [facility] Work Phone: How many standard dr inks containing alcohol do you have on a typical day? 5 or 6 [facility] How often do you hav e 6 or more drinks on 1 occasion? Less than monthly [facility] Childcare Unknown [facility] Start: 09-28-2018 Alcohol Comment social [facility] Start: 1960 Sex Assigned At Not on file P [facility] Start: 09-22-2018 Sex Female (finding) [facility] Clinical Notes 10-22-2023 to 11-07-2024 Telephone Encounter - Anabell Herrera, [facility] - 03/02/2024 1:22 PM EDTTelephone Encounter - Anabell Herrera, [facility] - 03/02/2024 1:22 PM EDTTelephone Encounter - Anabell Herrera, [facility] - 03/02/2024 1:22 PM EDT Note Date & Type Note Facility 11-07-2024 Note [facility] Note Reason for cardiology consult: Abnormal EKG, abnormal stress test Chief Complaint: None HPI: Deepa Sears is a 64 y.o. female without prior cardiac history. She denies history of hypertension, hyperlipidemia or diabetes mellitus. She has history of hypothyroidism. History of COVID April 2024 which was bad but she did not require oxygen, she had significant shortness of breath and she was on medications at home for 2 weeks Patient has right shoulder rotator cuff tear and she was supposed to go for surgical repair. As a preoperative test she had an EKG which came back abnormal showing sinus rhythm with left ventricular hypertrophy and ST-T changes in addition to left axis deviation and possible old septal infarct therefore stress test was ordered in the form of treadmill nuclear stress test. The EKG portion was normal. 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 She denies any chest discomfort with exertion but sometimes she wakes up with an ache feeling under the breast on the left. She denies exertional dyspnea, orthopnea or paroxysmal nocturnal dyspnea. She admits legs edema toward the end of the day after long standing. She denies legs discomfort with exertion next She denies snoring. She feels little tired during the daytime. She used to smoke 1 to 2 packs/day for about 20 years however she quit in 1997. She denies alcohol or illicit drugs. She drinks 2 cups of coffee a day. She drinks tea occasionally. She drinks water all day long. Regarding family history: Maternal grandmother had WA in her left 70s, maternal grandfather had permanent pacemaker, mother had breast cancer, father had coronary artery disease and stents Cardiology ROS: GENERAL: Denies fever, chills, night sweats, weight loss. HEENT: Denies changes in vision, photophobia, changes in hearing, epistaxis, oral bleeding. CARDIOVASCULAR: Denies exertional dyspnea, orthopnea/PND, palpitations, lightheadedness/dizziness. She reports occasional chest pain at rest, no exertional chest pain, occasional legs edema RESPIRATORY: Denies SOB, coughing, wheezing GI: Denies abdominal pain, nausea/vomiting, heartburn, melena/hematochezia. RENAL: Denies dysuria, hematuria, flank pain. MSK: Denies muscle weakness/pain, arthralgias/joint pain. NEUROLOGIC: Denies LOC, weakness, numbness, headaches. SKIN: Denies abnormal rashes or bleeding. PSYCH: Denies significant anxiety, depression, sleep disturbances. Past Medical History She has a past medical history of Abnormal ECG. Surgical History She has a past surgical history that includes Hysterectomy. Social History She reports that she quit smoking about 27 years ago. Her smoking use included cigarettes. She has never used smokeless tobacco. She reports current alcohol use. No history on file for drug use. Family History Family History Problem Relation Name Age of Onset Heart attack Maternal Grandmother Hypertension Maternal Grandmother Other (pacemaker) Maternal Grandfather Allergies Penicillins and Sulfa (sulfonamide antibiotics) Medications Current Outpatient Medications: leflunomide (Arava) 20 mg tablet, Take 20 mg by mouth in the morning., Disp: , Rfl: levothyroxine (Synthroid, Levoxyl) 150 mcg tablet, TAKE 1 TABLET BY MOUTH EVERY DAY IN THE MORNING ON AN EMPTY STOMACH, Disp: , Rfl: liothyronine (Cytomel) 5 mcg tablet, Take 5 mcg by mouth in the morning., Disp: , Rfl: loratadine (Claritin) 10 mg tablet, Take 10 mg by mouth in the morning., Disp: , Rfl: omeprazole (PriLOSEC) [address] capsule, Take 40 mg by mouth twice a day., Disp: , Rfl: Last Recorded Vitals Visit Vitals BP 118/74 (BP Location: Left arm, Patient Position: Sitting) Pulse 79 Ht 1.626 m (5' 4 ) Wt 86.6 kg (191 lb) SpO2 97% BMI 32.79 kg/m??? Smoking Status Former BSA 1.98 m??? Physical Examination: GENERAL: alert and oriented x3, well developed, in no acute distress. HEAD: atraumatic, normocephalic. EYES: MISBAH, EOMI. NECK: trachea midline, no JVD present, no carotid bruits present. CARDIAC: S1, S2 present. RRR. No murmur, rubs, or gallops. RESPIRATORY: CTAB, no increased effort of breathing, no rales, rhonchi, or wheezing. ABDOMEN: soft, nontender, nondistended. EXTREMITIES: no lower extremity edema, peripheral pulses are 2+ bilaterally. No rash/skin discoloration present. NEURO: strength/sensation equal and symmetric in bilateral upper and lower extremities. PSYCH: appropriate mood, affect, and judgement. Labs: 02/18/2024 White blood count 4.2, hemoglobin 12.9, hematocrit 39.1, platelets 179 Sodium 141, potassium 3.4, BUN 6, creatinine 0.65, GFR above 60, glucose 104, calcium 8.8 Total bi (more content not included)... [facility] 03-16-2024 Note I spoke with Deepa and [...] with any additional questions. Agatha Vanegas CPhT [facility] 03/22/24 12:16 PM [facility] 03-16-2024 Note Spoke to pt, she is suppose to receive the shipment on 03/21. I will follow-up with her on 03/22 to make sure she doesn't have any further questions. Jerardo Manriquez, CourtD, BCACP 03/18/24 11:27 AM [facility] [phone] [facility] 03-16-2024 Note High [...] able to get it by Thursday. Jerardo Manriquez, CourtD, BCACP 03/17/24 2:15 PM [facility] [phone] [facility] 03-16-2024 Note Prior Authorization for vow has been approved 03/16/2024-04/15/2024. Case ID/Authorization Number: [id number] Urbano Mueller CPhT [facility] 03/17/24 1:39 PM [facility] 03-16-2024 Note Specialty Pharmacy N [place]: [facility] Supervising Physician & Clinic:?? BILLY Mills is [...] follow-up for her after that. ? Jerardo Manriquez, PharmD, JOELCP 03/16/24 11:48 AM [facility] [phone] [facility] 03-11-2024 Note Subjective [...] follow-ups on file. [facility] 03-02-2024 Miscellaneous Notes ----- Message from Dr. Nubia Nogueira DO [...] put in chart. documented in this encounter [facility] 03-02-2024 Telephone encounter Note ----- Message from Dr. Nubia Nogueira [...] can make an appointment to see me. T [facility] 03-02-2024 Telephone encounter Note Spoke with patient regarding pathology results. Patient verbally understood with questions answered to the best of my ability. Will have Dr. Nogueira prescribe Omeprazole BID and send information on Cool's Esophagus in the mail. Recall to be put in chart. T [employer] [facility] 10-22-2023 History of Presen t illness [...] Nogueira DO at [facility] ESOPHAGOGASTRODUODENOSCOPY N/A 07/04/2021 Performed by Nubia Nogueira DO at [facility] HYSTERECTOMY 2008 OOPHORECTOMY Allergies Allergen [...] mouth daily., Disp: , Rfl: peg 3350-sod sulf,lmaq-gmg-def 178.7-7.3-0.5 gram recon soln, Take 1 kit [...] Referring and communicating with other health career placement specialist Family history of malignant neoplasm of colon [Z80.0] BETTY SMITH [facility] [place] This note was created with the assistance of a speech recognition program. While intending to generate a timely document that accurately reflects the content of the visit, no guarantee can be provided that every grammatical or spelling mistake has been or will be identified or corrected. Thank you for your understanding. BETTY Smith 10/22/23 1550 documented in this encounter [facility]: Evaluation note Diagnosis Family history of malignant neoplasm of colon- Primary Family history of colon cancer Family history of malignant neoplasm of gastrointestinal tract documented in this encounter [facility] filed[facility] in this encounter [facility] filedocumented in this encounter [facility] on filedocumented in this encounter [facility] on filedocumented in this encounter [facility] on filedocumented in this encounter [facility] Summary Purpose Family History [...] and content) DATE CREATED AUTHOR 12/28/2022 [facility] DATE CREATED AUTHOR AUTHOR'S ORGANIZ ATION 10/28/2023 [facility] DATE CREATED AUTHOR AUTHOR'S ORGANIZ ATION [facility]/07/2023 [facility] DATE CREATED AUTHOR AUTHOR'S ORGANIZ ATION 02/20/2024 [facility] DATE CREATED AUTHOR AUTHOR'S ORGANIZ ATION 02/22/2024 [facility] DATE CREATED AUTHOR AUTHOR'S ORGANIZ ATION 11/13/2024 [facility] Care Teams (unrecognized sec tion and content) Team Status: Inactive Member Role Status Dates Nubia Nogueira DO Attending Provider Active Start: February 19, 2024 End: February 19, 2024 [employer]ayer Relationship Specialty Start Date End Date Real Kimball MD [address] [phone] PCP - General Family Medicine 09/22/18 [employer] Relationship Specialty Start Date End Date Real Kimball MD [address] [place] [address] PCP - General Family Medicine 09/22/18 [employer] Sprayer Relationship Specialty [place] [address] [place] [id number] PCP - General Family Medicine 09/22/18 [employer] Sprayer Relationship Specialty [place] [address] [place] [id number] PCP - General Family Medicine 09/22/18 [employer] En[employer] Sprayer Relationship Specialty Start Date End Date Real [...] BE BASED ON THE PRIMARY CLINICAL RECORDS. [facility]. provides no warranty or guarantee of the accuracy or completeness of information in this document.
== END 2024-11-16 09:04 | disposition home or self-care (01) ==
LOC: CARD 09:03
PROVIDERS: PCP Family Medicine; Visit Provider Internal Medicine Cardiovascular Disease
DX: R94.31 Abnormal electrocardiogram [ECG] [EKG] (principal)
CPT/HCPCS: 93306

== ENCOUNTER 2024-11-30 08:57 | Outpatient (OUT) | payer OTHER, SELFPAY ==
--- NOTE | 2024-11-30 09:01 | MM_ITS ---
Patient Name: DEEPA ZAYAS MR#: [id number] : 1960 Exam Date: 11/30/2024 Ordering Doctor: DR REAL BAUTISTA . RADIOLOGY REPORT PROCEDURE: MM TOMOSYNTHESIS SCREENING BI COMPARISON: MM TOMOSYNTHESIS SCREENING BI, 10/29/2023. MG MAMM SCREEN 3D DALE CAD, 10/20/2022. MG MAMM DALE SCRN W CAD DIG, 08/12/2016. MG MAMM DALE SCRN W CAD DIG, 01/06/2005. INDICATIONS: Screening Calculator Name NCI Breast Cancer Risk Assessment Tool 5 Year Breast Cancer Risk 3.30% Lifetime Breast Cancer Risk 12.80% Personal Breast Cancer No Personal Ovarian Cancer No Treatments None Family Cancers Mother with breast cancer at age 75; Grandmother-maternal with breast cancer at age ~70. LOCATION: [facility] BREAST COMPOSITION: There are scattered areas of fibroglandular density. FINDINGS: RIGHT BREAST: FOCAL ASYMMETRY (finding without convex borders usually visible on two orthogonal views), characterized by obscured indeterminate morphology, posterior depth, DIAGNOSTIC CATEGORY 0--INCOMPLETE: NEED ADDITIONAL IMAGING EVALUATION. RECOMMENDATIONS: ADDITIONAL MAMMOGRAPHIC VIEWS REQUIRED: RIGHT BREAST - spot compression ULTRASOUND: RIGHT BREAST PLEASE NOTE: A NORMAL MAMMOGRAM DOES NOT EXCLUDE THE POSSIBILITY OF BREAST CANCER. A CLINICALLY SUSPICIOUS PALPABLE LUMP SHOULD BE BIOPSIED. Dictated by: Marciano Burgos DO on 12/01/2024 at 07:54 Approved by: Marciano Burgos DO on 12/01/2024 at 07:59
--- OUTSIDE RECORDS SUMMARY | 2024-11-30 09:16 | XMS_ITS | CCD ---
Author Organization [facility] Care Team Providers Care Car Salter Name Role Phone AVERY MCKNIGHT Attending Unavailable HOY ., DR NOBLE Primary Care Unavailable KAYLI ., DEEPTI PHILLIP Consulting Unavailgoergi e AVERY MCKNIGHT Admitting Unavailable STRAWSERHERNÁN Consulting [...] HOY ., DR NOBLE Primary Care Unavailable PINCH, DR CALLY Aguila Consulting Unavailable HOY ., [...] Unavailable HOY, REAL M Primary Care Unavailable NBUIA NOGUEIRA Admitting Unavailable NUBIA NOGUEIRA Attending Unavailable HOY, REAL M Primary Care Unavailable CALLY ARREAGA Attending Unavailable HOY, REAL M Primary Care Unavailable NUBIA NOGUEIRA Attending Unavailable NUBIA NOGUEIRA E Referring Unavailable HOY, REAL M Primary Care Unavailable DO Nubia Nogueira Attending Provider [phone] Nubia Nogueira Admitting Unavailable Nubia Nogueira Attending Unavailable Real Kimball MD Primary Care Provider [phone] Real Kimball MD Primary Care Provider [phone] Attending Unavailable BARBARA LICEA Attending Unavailable Allergies Allergy Classification Reported Allergen(s) Allergy Type Date of Onset Reaction(s) Facility (1 source) Penicillin Drug Allergy [facility] Repository (1 source) Sulfonamides (Antibiotic) Drug allergy (disorder) [facility] Repository (9 sources) Penicillins; Translations: [PENICILLINS] Propensity to adverse reactions to drug (disorder) 1 Swelling [facility] Repository (9 sources) Sulfonamides (Antibiotic); Translations: [SULFA (SULFONAMIDE ANTIBIOTICS)] Propensity to adverse reactions to drug (disorder) 9 [facility] Repository (8 sources) SULFABENZAMIDE; Translations: [SULFABENZAMIDE] Propensity to adverse reactions to drug (disorder) 9 [facility] Repository Medications Current Medications Medication Drug Class(es) Dates Sig (Normalized) Sig (Original) lactobacillus acidophilus [id number] unt / pectin 100 mg oral tablet [...] 03-11-2024 Episodic Other aftercare (1 source) Other senior care (current) drug therapy; Translations: [OTH [facility] CURRENT DRUG THERAPY] Onset: 04-15-2022 Episodic Other [...] Test Name Value Interpretation Reference Range Facility Orders Onlyon 11-21-2024 Orders Only [id number] Deepa Sears 1960 Date Provider Department Center 11/21/2024 [id number] CISNEROS Family History Problem Relation Age of Onset Heart attack Maternal Grandmother Hypertension Maternal Grandmother Other Maternal Grandfather Family Status - Relation Status Age at Maternal Grandmother Maternal Grandfather [facility] Office Visiton 11-07-2024 Follow-up visit [id number] Deepa Sears 1960 Provider Department Center 11/07/2024 [id number] MEIER Family History Problem Relation Age of Onset Heart attack Maternal Grandmother Hypertension Maternal Grandmother Other Maternal Grandfather Family Status - Relation Status Age at Maternal Grandmother Maternal Grandfather Level of Service:32424 CO OFFICE/OUTPATIENT NEW MODERATE MDM 45 MINUTES Reason for Visit and Comments: Cardiac Stress Test [489] - Denies chest pain and SOB. Abnormal ECG [293] - She had ECG on 10/25 for pre-surgery testing. Dr. Kimball ordered stress test due to abnormal ECG. Edema [[id number]] Palpitations [611341] - Feels palpitations sometimes in the mornings when she's still lying in bed. [facility] 36on 03-24-2024 36 Patient called in stating that she needs this letter in by today as it needs to be turned in two business days before hand. [facility] 36 Patient calling in to ask [...] would have started the Vowst on 03/20/24. [facility] 36on 03-17-2024 36 Patient called and [...] dosage of Vowst as well. Please advise. [facility] Documentationon 03-16-2024 Documentation [id number] Deepa Sears 1960 F Date Provider Department Center 03/16/2024 JERARDO FERNANDEZ None No family history on file Reason for Visit and Comments: Specialty Pharmacy Note: Vowst [Other] [facility] 36on 03-15-2024 36 Patient calling to [...] Something needs to be done. Please advise [facility] Telephoneon 03-15-2024 Telephone [id number] Deepa Sears 1960 F Date Provider Department Center 03/15/2024 [id number], BETH [facility] No family history on file Normal [facility] Office Visiton 03-11-2024 Follow-up visit [id number] Deepa Sears 1960 F Date Provider Department Center 03/11/2024 Sachin-BARBARA LICEA [facility] No family history on file Level of Service:03147 CO OFFICE/OUTPATIENT NEW LOW MDM 30 MINUTES Reason for Visit and Comments: New Patient [632] GERD [[id number]] - C Diff Vowst candidate Normal [facility] [place] 02-19-2024 L Specimen: [id number] Received: 02/19/24 Status: THOMAS Sy Num: [id number] Spec Type: Surgical Subm Dr: Nubia Nogueira DO Tissues: A Stomach - Biopsy/Polyp (ANTRUM) B Esophagus Biopsy (GE JUNCTION) Procedures: HE/4, Gross/Micro L4/2 Age/ Patient Sex Location Account Attending Physician RenuDeepa Fernandez 63/F [facility] [id number] Nubia Nogueira DO SPEC NUM: [id number] RECD: 02/19/24 STATUS: THOMAS SY NUM: [id number] PREETI: 02/19/24 [facility] DR: Nubia Nogueira DO ENTERED: 02/19/24-1310 [facility] DR: Alejandro,Lab SPEC TYPE: Surgical DEPT: CARINE [...] Mild gastritis and esophagitis, hiatal hernia Specimen: [id number] Received: 02/19/24 Status: THOMAS Sy Num: [id number] Spec Type: Surgical Subm Dr: Nubia Nogueira DO Tissues: A Stomach - Biopsy/Polyp (ANTRUM) B Esophagus Biopsy (GE JUNCTION) Procedures: HE/David, Gross/Micro L4/2 Patient: Deepa Sears [id number] (Continued) Specimen: [id number] Received: 02/19/24 (Continued) Signed (signatur e on file) Darshan Iniguez MD 02/22/242036 Specimen: [id number] Received: 02/19/24 Status: THOMAS Sy Num: [id number] Spec Type: Surgical Subm Dr: Nubia Nogueira DO Tissues: A Stomach - Biopsy/Polyp (ANTRUM) B Esophagus Biopsy (GE JUNCTION) Procedures: HE/4, Gross/Micro L4/2 Patient: Deepa Sears [id number] (Continued) Specimen: [id number] Received: 02/19/24 (Continued) Gross Description Received are [...] 0.1 cm, entirely submitted in B1. TW [facility] Codes 24084U3 Specimen: [id number] Received: 02/19/24 Status: THOMAS Sy Num: [id number] Spec Type: Surgical Subm Dr: Nubia Nogueira DO Tissues: A Stomach - Biopsy/Polyp (ANTRUM) B Esophagus Biopsy (GE JUNCTION) Procedures: HE/4, Gross/Micro L4/2 Patient: Deepa Sears [id number] (Continued) Signed (signatur e on file) Darshan Iniguez MD 02/22/242036 Normal [facility] Surgical PathologyOrdered By : Sheron Molina on 02-19-2024 [facility] XR CHEST 2 Von 12-24-2022 XR [...] EDDIE OROSCO Date: 2022-12-24 16:25 Normal [facility] MAMM SCREEN 3D DALE CADon 10-20-2022 MG MAMM SCREEN 3D DALE CAD Patient: DEEPA SEARS Exam Date: 10/20/2022 : 1960 Gender:F Ordering : DR REAL KIMBALL . Admission #: [id number] Family : Order #: [id number] CLICK HERE TO VIEW EXAM RADIOLOGY REPORT [...] breast cancer at age 70. LOCATION: [facility] BREAST COMPOSITION: Heterogeneously dense,which may obscure [...] MD on 10/20/2022 at 12:00 Normal [facility] Covid-19 PCR (CVDTBH)on SARS-CoV-2 (COVID-19) RNA EMMANUEL+probe Ql (Unsp spec) Not detected Normal NOT DETECTED [facility] Comment on above: Result Comment: When [...] for this test is supported by the Nursing Service Director of Health and Human Service's declaration that [...] used). Performed By: #### C VDTBH #### [facility] [address] [place] [address] Dr. Cindi Iniguez INFLUENZA A AND B [facility] 10-08 [facility] SEE BELOW Normal [facility] Comment on above: Result Comment: Nega tive for Flu A protein angiten. Infection due to Flu A cannot be ruled out. Flu A angiten in the sample may be below the detection limit of the test. Performed By: #### C MP, BNP, HSTROPN #### [facility] [address] [place] [address] Dr. Cindi Inigue[facility] SEE BELOW Normal [facility] Comment on above: Result Comment: Nega tive for Flu B protein antigen. Infection due to Flu B cannot be ruled out. Flu B antigen in the sample may be below the detection limit of the test. Performed By: #### C MP, BNP, HSTROPN #### [facility] [address] [place] [address] Dr. Cindi Iniguez INFLUENZA A AG Negative Normal NEGATIVE SEE COMMENT [facility] Comment on above: Performed By: #### C MP, BNP, HSTROPN #### [facility] [address] [place] [address] Dr. Cindi Iniguez INFLUENZA B AG Negative Normal NEGATIVE SEE COMMENT [facility] Comment on above: Performed By: #### C MP, BNP, HSTROPN #### [facility] [address] [place] [address] Dr. Cindi Iniguez Covid-19 PCR (CVDTB)on 07-09 SARS-CoV-2 (COVID-19) RNA EMMANUEL+probe Ql (Unsp spec) Not detected Normal NOT DETECTED [facility] Comment on above: Result Comment: When [...] for this test is supported by the [place] of Health and Human Service's declaration that [...] used). Performed By: #### C VDTBH #### [facility] [address] [place] [address] Dr. Cindi Iniguez BNPon 04-14-2022 Natriuretic peptide B (Bld) [Mass/Vol] 583.0 pg/mL Normal <=900.0 [facility] Comment on above: Performed By: #### C MP, BNP, HSTROPN #### [facility] [address] [place] [address] Dr. Cindi Iniguez CBC AUTO DIFFon 04-14-2022 BASO # 0.0 103/ul Normal 0.0-0.1 [facility] Comment on above: Performed By: #### C BC #### [facility] [address] [place] [address] Dr. Cindi Iniguez Basophils/100 WBC (Bld) 0.2 % Normal 0.2-2.0 [facility] Comment on above: Performed By: #### C BC #### [facility] [address] [address] [address] Cindi Iniguez EO # 0.0 103/ul Normal 0.0-0.7 [facility] Comment on above: Performed By: #### C BC #### [facility] [address] [place] [address] Dr. Cindi Iniguez Eosinophils/100 WBC (Bld) 0.3 % Critically low 0.9-7.0 [facility] Comment on above: Performed By: #### C BC #### [facility] [address] [place] [address] Dr. Cidni Iniguez Erythrocyte distribution width (RBC) [Ratio] 12.6 % Normal 11.0-15.0 [facility] Comment on above: Performed By: #### C BC #### [facility] [address] [place] [address] Dr. Cindi Iniguez Hematocrit (Bld) [Volume fraction] 43.3 % Normal 36.0-48.0 [facility] Comment on above: Performed By: #### C BC #### [facility] [address] [place] [address] Dr. Cindi Iniguez Hemoglobin (Bld) [Mass/Vol] 14.5 g/dL Normal 12.0-16.0 [facility] Comment on above: Performed By: #### C BC #### [facility] [address] [place] [address] Dr. Cindi Iniguez IG # 0.07 10e3/ul Critically high 0.00-0.03 [facility] Comment on above: Performed By: #### C BC #### [facility] [address] [place] [address] Dr. Cindi Iniguez IG % 0.5 % Normal 0.0-0.5 [facility] Comment on above: Performed By: #### C BC #### [facility] [address] [place] [address] Dr. Cindi Iniguze LYMPH # 1.8 103/ul Normal 1.2-3.8 [facility] Comment on above: Performed By: #### C BC #### [facility] [address] [place] [address] Dr. Cindi Iniguez Lymphocytes/100 WBC (Bld) 12.9 % Critically low 20.5-60.0 [facility] Comment on above: Performed By: #### C BC #### [facility] [address] [place] [address] Dr. Cindi Iniguez MANUAL DIFF REQ NO Normal [facility] Comment on above: Performed By: #### C BC #### [facility] [address] [place] [address] Dr. Cindi Iniguez MCH (RBC) [Entitic mass] 30.5 pg Normal 26.7-34.0 [facility] Comment on above: Performed By: #### C BC #### [facility] [address] [place] [address] Dr. Cindi Iniguez MCHC (RBC) [Mass/Vol] 33.5 g/dL Normal 29.9-35.2 [facility] Comment on above: Performed By: #### C BC #### [facility] [address] [place] [address] Dr. Cindi Iniguez MCV (RBC) [Entitic vol] 91.0 fL Normal 81.0-99.0 [facility] Comment on above: Performed By: #### C BC #### [facility] [address] [place] [address] Dr. Cindi Iniguez MONO # 1.0 103/ul Critically high 0.3-0.8 [facility] Comment on above: Performed By: #### C BC #### [facility] [address] [place] [address] Dr. Cindi Iniguez Monocytes/100 WBC (Bld) 7.1 % Normal 1.7-12.0 [facility] Comment on above: Performed By: #### C BC #### [facility] [address] [place] [address] Dr. Cindi Iniguez NEUT # 10.9 103/ul Critically high 1.4-6.5 [facility] Comment on above: Performed By: #### C BC #### [facility] [address] [address] [address] Cindi Iniguez Neutrophils/100 WBC (Bld) 79.0 % Critically high 43.0-75.0 [facility] Comment on above: Performed By: #### C BC #### [facility] [address] [address] [address] Cindi Iniguez Platelet mean volume (Bld) [Entitic vol] 8.8 fL Critically low 9.5-13.5 [facility] Comment on above: Performed By: #### C BC #### [facility] [address] [address] [address] Cindi Iniguez PLT 207 103/ul Normal 150-450 [facility] Comment on above: Performed By: #### C BC #### [facility] [address] [place] [address] Dr. Cindi Iniguez RBC 4.76 106/ul Normal 4.20-5.40 [facility] Comment on above: Performed By: #### C BC #### [facility] [address] [address] [address] Cindi Iniguez WBC 13.8 103/ul Critically high 4.0-11.0 [facility] Comment on above: Performed By: #### C BC #### [facility] [address] [place] [address] Dr. Cindi Iniguez CTA CHEST WO W [...] HERNÁN BAR Date: 2022-04-14 16:28 Normal [facility] PROF 14(COMP METB)on 022 Albumin [Mass/Vol] 3.5 g/dL Normal 3.4-5.0 [facility] Comment on above: Performed By: #### C MP, BNP, HSTROPN #### [facility] [address] [place] [address] Dr. Cindi Iniguez Albumin/Globulin [Mass ratio] 1.0 {ratio} Normal [facility] Comment on above: Performed By: #### C MP, BNP, HSTROPN #### [facility] [address] [place] [address] Dr. Cindi Iniguez ALP [Catalytic activity/Vol] 64 U/L Normal 46-116 [facility] Comment on above: Performed By: #### C MP, BNP, HSTROPN #### [facility] [address] [place] [address] Dr. Cindi Iniguez ALT [Catalytic activity/Vol] 44 U/L Normal 14-59 [facility] Comment on above: Performed By: #### C MP, BNP, HSTROPN #### [facility] [address] [place] [address] Dr. Cindi Iniguez Anion gap [Moles/Vol] 12.5 mmol/L Normal [facility] Comment on above: Performed By: #### C MP, BNP, HSTROPN #### [facility] [address] [place] [address] Dr. Cindi Iniguez AST [Catalytic activity/Vol] 21 U/L Normal 15-37 [facility] Comment on above: Performed By: #### C MP, BNP, HSTROPN #### [facility] [address] [place] [address] Dr. Cindi Iniguez Bilirubin [Mass/Vol] 0.3 mg/dL Normal 0.2-1.0 [facility] Comment on above: Performed By: #### C MP, BNP, HSTROPN #### [facility] [address] [address] [address] Cindi Iniguez Calcium [Mass/Vol] 9.1 mg/dL Normal 8.5-10.1 [facility] Comment on above: Performed By: #### C MP, BNP, HSTROPN #### [facility] [address] [address] [address] Cindi Iniguez Chloride [Moles/Vol] 97 mmol/L Critically low 98-107 [facility] Comment on above: Performed By: #### C MP, BNP, HSTROPN #### [facility] [address] [address] [address] Cindi Iniguez CO2 [Moles/Vol] 29.8 mmol/L Normal 21.0-32.0 [facility] Comment on above: Performed By: #### C MP, BNP, HSTROPN #### [facility] [address] [address] [address] Cindi Iniguez Creatinine [Mass/Vol] 1.06 mg/dL Critically high 0.55-1.02 [facility] Comment on above: Performed By: #### C MP, BNP, HSTROPN #### [facility] [address] [address] [address] Cindi Iniguez EGFR-AF TOGOLESE >60 Normal >=60 [facility] Comment on above: Performed By: #### C MP, BNP, HSTROPN #### [facility] [address] [address] [address] Cindi Iniguez EGFR-NON AF TOGOLESE 53 mL/min/1.73m2 Critically low >=60 [facility] Comment on above: Performed By: #### C MP, BNP, HSTROPN #### [facility] [address] [address] [address] Cindi Iniguez Globulin (S) [Mass/Vol] 3.6 g/dL Normal [facility] Comment on above: Performed By: #### C MP, BNP, HSTROPN #### [facility] [address] [address] [address] Cindi Iniguez Glucose [Mass/Vol] 109 mg/dL Critically high 74-106 T [facility] Comment on above: Performed By: #### C MP, BNP, HSTROPN #### [facility] [address] [place] [address] Dr. Cindi Iniguez Potassium [Moles/Vol] 4.3 mmol/L Normal 3.5-5.1 [facility] Comment on above: Performed By: #### C MP, BNP, HSTROPN #### [facility] [address] [address] [address] Cindi Iniguez Protein [Mass/Vol] 7.1 g/dL Normal 6.4-8.2 [facility] Comment on above: Performed By: #### C MP, BNP, HSTROPN #### [facility] [address] [place] [address] Dr. Cindi Iniguez Sodium [Moles/Vol] 135 mmol/L Critically low 136-145 Th [facility] Comment on above: Performed By: #### C MP, BNP, HSTROPN #### [facility] [address] [place] [address] Dr. Cindi Iniguez Urea nitrogen [Mass/Vol] 17.0 mg/dL Normal 7.0-18.0 [facility] Comment on above: Performed By: #### C MP, BNP, HSTROPN #### [facility] [address] [place] [address] Dr. Cindi Iniguez Urea nitrogen/Creatinine [Mass ratio] 16.0 mg/mg Normal [facility] Comment on above: Performed By: #### C MP, BNP, HSTROPN #### [facility] [address] [place] [address] Dr. Cindi Iniguez PROTIMEon 04-14-2022 INR Coag (PPP) [Relative time] 0.93 {INR} Normal [facility] Comment on above: Performed By: #### P TT, PT #### [facility] [address] [place] [address] Dr. Cindi Iniguez INR GUIDELINES SEE BELOW Normal [facility] Comment on above: Result Comment: MESSI RED INR: 2.0 - 3.0 CONDITIONS NOT LISTED BELOW 2.5 - 3.5 FOR PROSTHETIC HEART VALVE REPLACEMENT 2.5 - 3.5 RECURRENT THROMBOSIS Performed By: #### P TT, PT #### [facility] [address] [place] [address] Dr. Cindi Iniguez PT Coag (PPP) [Time] 10.1 s Normal 9.0-11.6 [facility] Comment on above: Performed By: #### P TT, PT #### [facility] [address] [place] [address] Dr. Cindi Iniguez PTTon 04-14-2022 aPTT Coag (Bld) [Time] 23.8 s Normal 22.3-36.2 [facility] Comment on above: Performed By: #### C MP, BNP, HSTROPN #### [facility] [address] [place] [address] Dr. Cindi Iniguez TROPONIN, HIGH SENSITIVITYon 04-14-2022 HSTROP 27.4 pg/mL Normal 4.0-51.3 [facility] Comment on above: Result Comment: CUT- OFF POINTS HAVE BEEN ESTABLISHED BASED ON THE FOURTH UNIVERSAL DEFINITIONS OF MYOCARDIAL INFARCTION. THE UPPER REFERENCE LIMIT (URL) OF TROPONIN, DEFINED THE 99TH PERCENTILE OF cTnI DISTRIBUTION IN A REFERENCE POPULATION, HAS BEEN CONFIRMED THE DECISION THRESHOLD FOR UT DIAGNOSIS. Performed By: #### C MP, BNP, HSTROPN #### [facility] [address] [place] [address] Dr. Cindi Iniguez Covid-19 PCR (CVDTBH)on 03-08 SARS-CoV-2 (COVID-19) RNA EMMANUEL+probe Ql (Unsp spec) Detected Critically abnormal NOT DETECTED [facility] Comment on above: Result Comment: This test is not yet approved or cleared by the [place] FDA. When there are no FDA-approved or cleared tests available, and other criteria are met, FDA can make tests available under an emergency access mechanism called an Emergency Use Authorization (EUA). The EUA for this test is supported by the [place] of Health and Human Service's (HHS's) declaration [...] By: #### C MP, BNP, HSTROPN #### [facility] [address] [address] [address] Cindi Iniguez Vital Signs Date Time Vital Sign Value Performing Clinician Faci lity 10-22-2023 15:23-0500 Body mass index (BMI) [Ratio] 36.39 kg/m2 [employer] RN CALL CENTERBeijing [employer] Work Phone: [employer] 10-22-2023 15:23050 Body weight 96.16 kg John Pineda RN CALL CENTER-FINANCIAL SERVICE PROFESSIONAL Work Phone: [facility] [employer] Encounters Encounter Date Encounter Type Care Provider Facility Start: 11-07-2024 End: 11-07-2024 ambulatory [facility] Start: 07-13-2024 End: 07-13-2024 Refill Nubia Nogueira DO Work Phone: [facility] Start: 05-06-2024 End: 05-06-2024 Refill Nubia Nogueira DO Work Phone: [facility] Start: 03-11-2024 End: 03-11-2024 ambulatory BARBARA [facility] Start: 03-02-2024 End: 03-02-2024 Orders Only Not In System Ref Prov [facility] Start: 02-19-2024 End: 02-19-2024 ambulatory Nubia Nogueira [facility] Work Phone: Start: 02-19-2024 End: 02-19-2024 Departed Referred DO Nubia Nogueira Work Phone: [facility] Start: 11-06-2023 End: 11-06-2023 Evaluation and management of inpatient CALLY ARREAGA [facility] Start: 11-05-2023 End: 11-06-2023 Evaluation and management of inpatient NUBIA NOGUEIRA [facility] Start: 10-22-2023 ambulatory JOHN PINEDA [facility] Start: 10-22-2023 End: 10-22-2023 Office outpatient new 30 minutes John Pineda RN CALL CENTER-[employer]CIAL SERVICE PROFESSIONAL Work Phone: [facility] Comment on above: Family [...] Ref Pr ov Start: 10-11-2018 Colonoscopy John roldanalycia RN CALL CENTER-FINANCIAL SERVICE PROFESSIONAL Work Phone: Plan of Treatment Date Care Activity Detail Author Start: 11-04-2028 Screening for malign ant neoplasm of colon Colonoscopy [facility] Start: 11-04-2024 Adult BMI Screening Adult BMI Screen ing [facility] Start: 11-04-2024 Tobacco Screening Tobacco Screening [facility] Start: 10-22-2024 Adult BMI Screening Adult BMI Screen ing [facility] Start: 10-22-2024 Tobacco Screening Tobacco Screening [facility] Start: 05-08-2024 COVID-19 Vaccine ( season) COVID-19 Vaccine ( season) [facility] Start: 05-08-2024 Influenza vaccination Influenza Vacc ine [facility] Start: 11-05-2023 End: 11-05-2023 Admission to same day surgery center 11/05/2023 11:00 AM EST - 11/05/2023 11:30 AM EST Surgery [facility] [address] [place] [address] Nubia Nogueira, DO [facility] [place] [address] COLONOSCOPY DIAGNOSTIC / SCREENING [08545 (CPT )] [facility] Comment on above: COLONOSCOPY DIAGNOST IC / SCREENING [69786 (CPT )] Start: 11-05-2023 End: 11-05-2023 Colonoscopy flx dx w/collj spec when pfrmd COLONOSCOPY DIAGNOSTIC / SCREENING Family history of colon cancer 11/05/2023 11:00 AM [facility] Start: 11-05-2023 Subsequent hospital visit by physician 11/05/2023 11:00 AM EST Hospital Encounter [facility] [address] [place] [id number] Nubia Nogueira, DO [address] [place] [address] [id number] [facility] Start: 10-29-2023 End: 10-29-2023 ambulatory 10/29/2023 2:10 PM EST Support Visit [facility] - Pre Admit [address] [place] [id number] [facility] Pre Admit Start: 10-11-2023 Screening for malign ant neoplasm of colon Colonoscopy [facility] Start: 2010 Administration of varicella zoster vaccine Zoster (Shingles) Vaccine (1 of 2) [facility] Start: 1979 DTaP,Tdap and Td Vac cines (1 - Tdap) DTaP,Tdap and Td Vaccines (1 - Tdap) [employer] Start: 1978 Adult BMI Follow Up Plan Adult BMI Follow Up Plan [employer] Start: 1972 [facility] End: 10-22-2024 Colonoscopy Colonoscopy GI Routine Family history of malignant neoplasm of colon 1 Occurrences starting 10/22/2023 until 10/22/2024 [employer] Work Phone: Comment on above: 1 Occurrences starti ng 10/22/2023 until 10/22/2024 Immunizations Immunization Date Immunization Notes Care Provider Fa cili 06-17-2023 influenza virus vacc ine, unspecified formulation Not Ref Prov [facility] Payers Date Payer Category Payer Self-pay 2023 Managed Care Other (unspecified) [facility] [id number] 2023 Private Health Insurance [facility] [employer] [id number] 2023-Present [phone] [address] [address] [place] [address] [id number] 1960 Unknown [id number] 2.16.840.1.966939.3.579. 2.593 1960 Unknown [id number] 2.16.840.1.576359.3.579. 2.593 1960 Unknown [id number] 2.16.840.1.991535.3.579. 2.593 1960 Unknown [id number] 2.16.840.1.045761.3.579. 2.593 1960 Unknown [id number] 2.16.840.1.407466.3.579. 2.593 1960 Unknown [id number] 2.16.840.1.524047.3.579. 2.593 1960 Unknown [id number] 2.16.840.1.525274.3.579. 2.593 1960 Unknown [id number] 2.16.840.1.221673.3.579. 2.1286 1960 Unknown [id number] 2.16.840.1.277138.3.579. 2.1286 1960 Unknown [id number] 2.16.840.1.735510.3.579. 2.1286 1960 Unknown [id number] 2.16.840.1.771257.3.579. 2.1286 1960 Unknown [id number] 2.16.840.1.323140.3.579. 2.1286 1959 Private Health Insurance [id number] 1959 Self-pay [id number] Social History Date Type Detail Facility Tobacco smoking stat [facility] Unknown if ever smoked [facility] Start: 1960 Sex Assigned At Female F [facility] Start: 12-31-2022 End: 11-05-2023 Tobacco smoking status NDIS Ex-smoker [facility] Start: 08-28-1976 End: 08-28-1998 History of tobacco use Current smoker [facility] Start: 08-28-1976 End: 08-28-1998 History of tobacco use Cigarette Smoker [facility] Start: 12-31-2022 End: 11-05-2023 Tobacco use and exposure Smokeless tobacco non-user [facility] Start: 10-22-2023 End: 11-05-2023 Alcohol intake Current drinker of alcohol (finding) [facility] Start: 10-18-2020 End: 12-30-2021 History of Social function [facility] Work Phone: Start: 10-18-2020 End: 12-30-2021 Alcohol Use Disorder Identification Test - Consumption [AUDIT-C] [facility] Work Phone: How often to you hav e a drink containing alcohol? Monthly or less [facility] Work Phone: How many standard dr inks containing alcohol do you have on a typical day? 5 or 6 [facility] How often do you hav e 6 or more drinks on 1 occasion? Less than monthly [facility] Childcare Unknown [facility] Start: 09-28-2018 Alcohol Comment social [facility] Start: 1960 Sex Assigned At Not on file P 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 [...] long. Regarding family history: Maternal grandmother had [place] in her left 70s, maternal grandfather had [...] 8.8 Total bi (more content not included)... [facility] 03-16-2024 Note Specialty Pharmacy N ote: [facility] Supervising Physician & Clinic:?? BILLY Mills is a 63 y.o. year old female patient with PMH of: Recurrent C. Diff GERD Allergies Allergen Reactions Penicillins Swelling Sulfa (Sulfonamide Antibiotics) Swelling Lips daysi PharmD consulted for evaluation of [facility] for [...] her after that. ? Jerardo Quintero, CourtD[facility]16[facility] 11:48 AM [facility] [phone] [facility] 03-16-2024 Note I spoke with Deepa [...] office with any additional questions. Agatha Vanegas [facility] 03/22/24 12:16 PM [facility] 03-16-2024 Note Prior Authorization for [facility] has been approved 03/16/2024-04/15/2024. Case ID/Authorization Number: [id number] Urbano Mueller [facility] 03/17/24 1:39 PM [facility] 03-16-2024 Note High copay. Rx at [...] [facility] 03/17/24 2:15 PM [facility] [phone] [facility] 03-16-2024 Note Spoke to pt, she is suppose to receive the shipment on 03/21. I will follow-up with her on 03/22 to make sure she doesn't have any further questions. Jerardo Quintero PharmD, [facility] 03/18/24 11:27 AM [facility] [phone] [facility] 03-11-2024 Note Subjective Patient ID: Deepa [...] past 36 hour(s)). No follow-ups on file. [facility] 03-02-2024 Miscellaneous Notes ----- Message from [...] put in chart. documented in this encounter [facility] 03-02-2024 Telephone encounter Note ----- Message [...] can make an appointment to see me. [facility] 03-02-2024 Telephone encounter Note Spoke with patient regarding pathology results. Patient verbally understood with questions answered to the best of my ability. Will have Dr. Nogueira prescribe Omeprazole BID and send information on [facility]'s Esophagus in the mail. Recall to be put in chart. [facility] 10-22-2023 History of Presen t illness [...] mouth daily., Disp: , Rfl: peg 3350-sod sulf,bcsn-cao-rwl 178.7-7.3-0.5 gram recon soln, Take 1 kit [...] patient/family/caregiver Referring and communicating with other health certified social workers in health care Family history of malignant neoplasm of colon [Z80.0] BETTY SMITH [facility] Physicians General Surgery [place] This note was created with the assistance of a speech recognition program. While intending to generate a timely document that accurately reflects the content of the visit, no guarantee can be provided that every grammatical or spelling mistake has been or will be identified or corrected. Thank you for your understanding. BETTY Smith 10/22/23 1550 documented in this encounter [facility] Evaluation note No assessment inform ation available [facility] Work Phone: Evaluation note Diagnosis [...] and content) DATE CREATED AUTHOR 12/28/2022 [facility] DATE CREATED AUTHOR AUTHOR'S ORGANIZ ATION 10/28/2023 [facility] DATE CREATED AUTHOR AUTHOR'S ORGANIZ ATION 11/07/2023 [facility] DATE CREATED AUTHOR AUTHOR'S ORGANIZ ATION 02/20/2024 [facility] DATE CREATED AUTHOR AUTHOR'S ORGANIZ ATION 02/22/2024 [facility] DATE CREATED AUTHOR AUTHOR'S ORGANIZ ATION 11/26/2024 [facility] Care Teams (unrecognized sec tion and content) Team Status: Inactive Member Role Status Dates Nubia Nogueira DO Attending Provider Active Start: February 19, 2024 End: February 19, 2024 Car Salter Relationship Specialty Start Date End Date Real Kimball MD [address] [place] [address] PCP - General Family Medicine 09/22/18 Car Salter Relationship Specialty Start Date End Date Real Kimball MD [address] [place] [address] PCP - General Family Medicine 09/22/18 Car Salter Relationship Specialty Start Date End Date Real Kimball MD [address] [place] [address] PCP - General Family Medicine 09/22/18 Car Salter Relationship Specialty Start Date End Date Real Kimball MD [address] [place] [address] PCP - General Family Medicine 09/22/18 Car Salter Relationship Specialty Start Date End Date Real [...] BE BASED ON THE PRIMARY CLINICAL RECORDS. [employer] provides no warranty or guarantee of the accuracy or completeness of information in this document.
== END 2024-11-30 08:58 | disposition home or self-care (01) ==
LOC: MAMMO 08:58
PROVIDERS: PCP Family Medicine; Visit Provider Family Medicine
DX: Z12.31 Encounter for screening mammogram for malignant neoplasm of breast (principal); Z80.3 Family history of malignant neoplasm of breast; R92.8 Other abnormal and inconclusive findings on diagnostic imaging of breast
CPT/HCPCS: 77063; 77067

== ENCOUNTER 2025-05-23 08:18 | Outpatient (OUT) | payer OTHER, SELFPAY ==
--- NOTE | 2025-05-23 08:23 | CA_ITS ---
Patient Name: DEEPA ZAYAS MR#: [id number] : 1960 Exam Date: 05/23/2025 Ordering Doctor: DR. DAXA LANE M.D. ECHOCARDIOGRAM REPORT PROCEDURE: CA ECHO DOPPLER COMPLETE INDICATIONS: Chronic combined systolic and diastolic heart failure COMPARISON: None. DESCRIPTION: COMPLETE ECHOCARDIOGRAM Real-time transthoracic echocardiography with 2D, M-mode, spectral and color flow Doppler performed. QUALITY: Technical quality was good. LEFT VENTRICLE: Normal chamber size. Mild concentric left ventricular hypertrophy. LV EF: Global left ventricular systolic function is normal; visually estimated ejection fraction is 55%. Abnormal septal motion; likely related to underlying bundle branch block. DIASTOLIC: Normal diastolic function. ATRIAL SEPTUM: Inadequately seen. LEFT ATRIUM: Normal chamber size. RIGHT ATRIUM: Normal chamber size. RIGHT VENTRICLE: Normal chamber size. Normal right ventricular systolic function. TRICUSPID VALVE: Normal mobility and thickness. No stenosis with trivial regurgitation. No evidence of pulmonary hypertension. RVSP 27mmHg MITRAL VALVE: Normal mobility and thickness. No evidence of mitral valve stenosis. There is no mitral annular calcification. Trivial mitral regurgitation. AORTIC VALVE: Normal trileaflet appearance. No visible sclerosis. Normal leaflet mobility. No evidence of aortic valve stenosis. Trivial aortic regurgitation. AORTIC ROOT: Normal diameter and appearance. PULMONIC VALVE: Normal thickness and mobility. No stenosis. Trivial regurgitation. PERICARDIUM: Anterior free space; trivial effusion versus fat pad. IVC: Collapses with inspiration. Normal size. CONCLUSION: 1. Global left ventricular systolic function is normal; visually estimated ejection fraction is 55% 2. Normal right ventricular size and systolic function 3. Mild left ventricular hypertrophy 4. Normal diastolic function 5. No significant valvular abnormalities 6. Anterior free space; trivial effusion versus fat pad Adult Echocardiography Procedure Report Left Ventricle LVEDD (3.7 - 5.6 cm): 4.07 cm LVESD (2.2 - 4.0 cm): 2.82 cm LVIVS thickness (0.6 - 1.2 cm): 1.33 cm LVPW thickness (0.5 - 1.0 cm): 1.28 cm e': 0.08 m/s E - e': 7.96 LVOT Max Gradient: 2.93 mm[Hg] LVOT Area (cm2): 0.86 m/s Peak Velocity (LVOT): 0.86 m/s Mean Velocity (LVOT): 0.57 m/s LVOT Diameter 2.27 cm Left Ventricular Ejection Fraction: 57.55 % Left Atrium LA Volume Index (2D A2C): 31.05 ml/m2 Left Atrium Systolic Dimension: 4.65 cm Mitral Valve MV E to A Ratio: 0.72 Mitral Valve A-Wave Peak Velocity: 0.86 m/s Mitral Valve E-Wave Peak Velocity: 0.62 m/s Right Ventricle RV Internal Diastolic Dimension: 3.09 cm Aorta AO Root Diam: 3.41 cm Ascending Ao Diam: 3.39 cm Aortic Valve AoV Area (Peak Mark): 2.60 cm2, 2.60 cm2 AoV Area (VTI): 2.49 cm2, 2.49 cm2 Peak Velocity(Antegrade Flow): 1.33 m/s Peak Gradient(Antegrade Flow): 7.06 mm[Hg] Mean Velocity(Antegrade Flow): 0.87 m/s Mean Gradient(Antegrade Flow): 3.58 mm[Hg] Velocity Time Integral: 27.43 cm Tricuspid Valve Peak Velocity (Regurgitant Flow): 2.47 m/s Pulmonic Valve Mean Gradient: 1.18 mm[Hg] Mean Velocity: 0.50 m/s Peak Velocity: 0.72 m/s, 0.97 m/s Peak Gradient: 3.74 mm[Hg], 2.05 mm[Hg] Right Atrium Right Atrium Systolic Pressure: 39.67 ml, 39.67 ml Dictated by: Evelin Rockwell M.D. on 05/23/2025 at 16:37 Approved by: Evelin Rockwell M.D. on 05/23/2025 at 16:41
--- OUTSIDE RECORDS SUMMARY | 2025-05-23 08:24 | XMS_ITS | CCD ---
Author Organization [facility] Care Team Providers Care Industrial Designer Name Role Phone AVERY MCKNIGHT Attending Unavailable HOY ., DR NOBLE Primary Care Unavailable KAYLI ., DEEPTI PHILLIP Consulting UnavailAVERY Adams Admitting Unavailable AUSTINSERHERNÁN Consulting Unavailable HOY ., DR NOBLE Attending [...] HOY ., DR NOBLE Primary Care Unavailable DEVINE, DR CALLY Aguila Consulting Unavailable HOY ., DR NOBLE Consulting Unavailable HOY ., DR NOBLE Attending Unavailable HOY ., DR NOBLE Admitting Unavailable HOY ., DR NOBLE Primary Care Unavailable CASANDRA ALLEN Attending Unavailable CASANDRA ALLEN Admitting Unavailable BRIANY ., DR NOBLE Primary Care Unavailable CASANDRA ALLEN Consulting Unavailable DO Lee Quiles Attending Provider Lee Quiles Admitting Unavailable Lee Quiles Attending Unavailable Real Kimball MD Primary Care Provider [phone] Real Kimball MD Primary Care Provider REAL KIMBALL Referring Unavailable REAL KIMBALL Primary Care Unavailable Unavailable Primary Care Provider UnavailReal Liang MD Primary Care Provider [phone] RAYMOND DAVLIA Referring Unavailable RAYMOND DAVILA Attending Unavailable HOY, REAL M Primary Care Unavailable RAYMOND DAVILA Admitting Unavailable FELIPE FERRARA Admitting Unavailable FELIPE FERRARA Attending Unavailable FELIPE FERRARA Referring Unavailable NGUYỄN ANTONIO Referring Unavailable CHUCK LUCAS Attending Unavailable DAXA LANE Attending Unavailable DAXA LANE Attending Unavailable FELIPE FERRARA Referring Unavailable DAXA LANE Admitting Unavailable DAXA LANE Attending Unavailable HOY, REAL M Referring Unavailable HOY, REAL M Primary Care Unavailable DAVILA, RAYMOND Romero Referring Unavailable MICHELE, REAL M Primary Care Unavailable FELIPE FERRARA Referring Unavailabl e BRIANY, REAL M Primary Care Unavailable DAVILA, RAYMOND C Referring Unavailable HOY, REAL M Primary Care Unavailable DAVILA, RAYMOND C Referring Unavailable HOY, REAL M Primary Care Unavailable DAVILARAYMOND ESQUEDA C Referring Unavailable HOY, REAL M Primary Care Unavailable DAVILA, RAYMOND C Referring Unavailable HOY, REAL M Primary Care Unavailable Allergies Allergy Classification Reported Allergen(s) Allergy Type Date of Onset Reaction(s) Facility (1 source) Penicillin Drug Allergy [facility] (1 source) Sulfonamides (Antibiotic) Drug allergy (disorder) [facility] (11 sources) Penicillins; Translations: [PENICILLINS] Propensity to adverse reactions to drug 1 Swelling, Angioedema [facility] (8 sources) sulfabenzamide; Translations: [SULFABENZAMIDE] Drug Allergy 9 Swelling [facility] (11 sources) Sulfonamides (Antibiotic); Translations: [SULFA (SULFONAMIDE ANTIBIOTICS)] Propensity to adverse reactions to drug 9 Angioedema [facility] (1 source) Ciprofloxacin; Translations: [CIPROFLOXACIN] Drug Allergy [facility] (1 source) Fluconazole; Translations: [FLUCONAZOLE] Drug Allergy [facility] Medications Current Medications Medication Drug Class(es) Dates Sig (Normalized) Sig (Original) acetaminophen 325 mg / oxyCODONE hydrochloride 5 mg oral tablet (1 source) Opioid Agonist Start: 12-30-2024 End: 01-06-2025 oxyCODONE-acetamin ophen (PERCOCET) 5-325 MG per tablet Indications: Postoperative pain Take 1-2 tablets by mouth every 4-6 hours as needed for Pain for up to 7 days. Intended supply: 7 days. Take lowest dose possible to manage pain Max Daily Amount: 12 tablets 30 tablet 12/30/2024 01/06/2025 Active aspirin 81 mg delayed release oral tablet (1 source) Platelet Aggregation Inhibitor, Nonsteroidal Anti-inflammatory Drug take 1 tablet by mouth once daily aspirin 81 MG EC tablet Take 1 tablet by mouth daily Active calcium chloride 0.0014 meq/ml / potassium chloride 0.004 meq/ml / sodium chloride 0.103 meq/ml / sodium lactate 0.028 meq/ml injectable solution (1 source) Start: 12-30-2024 IntraVENous, at 100 mL/hr, CONTINUOUS, Starting on Thu12/30/24 at 0930, Pre-op (day of surgery) empagliflozin 10 mg oral tablet (1 source) Sodium-Glucose Cotransporter 2 Inhibitor take 1 tablet by mouth once daily empagliflozin (JARDIANCE) 10 MG tablet Take 1 tablet by mouth daily Active lactobacillus acidophilus [id number] unt / pectin 100 mg oral tablet [...] Active levothyroxine sodium 0.15 mg oral tablet (7 sources) l-Thyroxine Start: 07-14-2018 take 1 tablet by mouth in the morning levothyroxine (SYNTHROID, LEVOTHROID) 150 MCG tablet Take 1 tablet (150 mcg total) by mouth in the morning. 07/14/2018 Active liothyronine sodium 0.005 mg oral tablet (7 sources) l-Triiodothyronine Start: 08-27-2018 take 1 tablet by mouth in the morning liothyronine (CYTOMEL) 5 MCG tablet Take 1 tablet (5 mcg total) by mouth in the morning. 08/27/2018 Active loratadine 10 mg oral tablet (6 sources) take 1 tablet by mouth in the morning loratadine (CLARITIN) 10 mg tablet Take 1 tablet (10 mg total) by mouth in the morning. Active 24 hr metoprolol succinate 25 mg extended release oral tablet (1 source) beta-Adrenergic Haw[place] take 1 tablet by mouth once daily metoprolol succinate (TOPROL XL) 25 MG extended release tablet Take 1 tablet by mouth daily Active Multiple Vitamins-Minerals (THERAPEUTIC MULTIVITAMIN-MINERA LS) tablet (1 source) take 1 tablet by mouth once daily Multiple Vitamins-Minerals (THERAPEUTIC MULTIVITAMIN-SHOTGUN SHELL ASSEMBLY MACHINE ADJUSTER ALS) tablet Take 1 tablet by mouth daily Active Multivitamin preparation (6 sources) multivitamin (MULTI-DAY ORAL) Take by mouth. Active multivitamin (MU LTI-DAY ORAL) Take by mouth. 0 Active omeprazole 40 mg delayed release oral capsule (10 sources) Proton Pump Inhibitor Start: 07-13-2024 take [...] BEDTIME. 60 capsule 1 05/06/2024 07/13/2024 Discontinued take 2 capsules by m outh once daily omeprazole (PRILOSEC) 20 MG delayed release capsule Take 2 capsules by mouth daily Active End: 03-02-2024 omeprazole (PriLOSEC) 40 mg capsule Take 20 mg by mouth in the morning and at bedtime. 03/02/2024 Discontinued peg 3350-sod sulf,gyky-qcy-dsq 178.7-7.3-0.5 gram recon soln (1 source) Start: 10-22-2023 End: 10-23-2023 peg 3350-sod sulf,buld-cpu-pbi 178.7-7.3-0.5 gram recon soln Indications: Family history of malignant neoplasm of colon Take 1 kit by mouth once daily for 1 dose. Please see instructional sheet given by physicians office. 1 each 0 10/22/2023 10/23/2023 Active spironolactone 25 mg oral tablet (1 source) Aldosterone Antagonist take 1 tablet by mouth once daily spironolactone (ALDACTONE) 25 MG tablet Take 1 tablet by mouth daily Active turmeric extract 500 mg oral capsule (7 sources) take 1 tablet by mouth once daily Turmeric 500 MG TABS Take 500 mg by mouth Daily Active TURMERIC ORAL Ta ke by mouth daily. Active TURMERIC ORAL Ta ke by mouth daily. 0 Active Completed/Discontinued Medications Medication Drug Class(es) Dates Sig (Normalized) Sig (Original) pantoprazole 40 mg delayed release oral tablet (1 source) Proton Pump Inhibitor Start: 08-04-2018 End: 10-22-2023 pantoprazole (PROTONIX) 40 mg EC tablet vancomycin (VANCOCIN) 1,000 mg in sodium chloride 0.9 % 250 mL IVPB ([id number]) (1 source) Start: 12-30-2024 End: 12-30-2024 1,000 mg (11.6 mg/kg), IntraVENous, at 250 mL/hr, Administer over 60 Minutes, CEMENT RUBBER TO O.R., On Thu12/30/24 at 0930, For 1 dose, Use 20mm (Blue) [id number] Adapter Preparation instructions: Attach medication vial to one 20mm (Blue) [id number] adapter. Aldair fluid bag with adapter, mix, and administer per order. 24 hr venlafaxine 37.5 mg extended release [...] Translations: [ACUTE BRONCHITIS UNSPECIFIED] Onset: 04-05-2022 Episodic Congestive heart failure; nonhypertensive (6 sources) Chronic combined systolic (congestive) and diastolic (congestive) heart failure; Translations: [Unspecified systolic (congestive) heart failure] Onset: 12-07-2024 Chronic Coronary atherosclerosis and other heart disease (6 sources) Chronic ischemic heart disease, unspecified; Translations: [Atherosclerotic heart disease of [place] coronary artery without angina pectoris] Onset: 12-21-2024 Chronic Disorders of lipid metabolism (4 sources) Pure hypercholesterolemia , unspecified; Translations: [Mixed hyperlipidemia] Onset: 12-21-2024 Chronic Esophageal disorders (2 sources) Gastro-esophageal reflux disease without esophagitis; Translations: [Gastro-esophageal reflux disease without esophagitis] Onset: 02-13-2025 Chronic Essential hypertension (2 sources) Essential (primary) hypertension; Translations: [Essential (primary) hypertension] Onset: 12-21-2024 Chronic Hypertension with complications and secondary hypertension (2 sources) Hypertensive heart disease with heart failure; Translations: [Hypertensive heart disease with heart failure] Onset: 12-21-2024 Chronic Nonspecific chest pain (2 sources) Other chest pain; Translations: [Other chest pain] Onset: 02-13-2025 Episodic Other nervous system disorders (1 source) Postoperative pain ; Translations: [Other acute postprocedural pain] 12-30-2024 Episodic Other nervous system disorders (1 source) Other acute postprocedural pain; Translations: [Other acute postprocedural pain] Onset: 12-30-2024 Episodic Residual codes; unclassified (1 source) Family history of malignant neoplasm of breast; Translations: [FAMILY HX MALIG NEOPLASM OF BREAST] Onset: 10-24-2022 Episodic Unclassified (3 sources) CONTACT W/AND (SUSP) EXPOS COVID-19; Translations: [CONTACT W/AND (SUSP) EXPOS COVID-19] Onset: 04-05-2022 Viral infection (1 source) COVID-19; Translations: [COVID-19] Onset: 04-05-2022 Past or Other Problems Problem Classification Problem Date Documented Date Episodic/Chronic Other aftercare (1 source) Other intermediate manager (current) drug therapy; Translations: [OTH ALF CURRENT DRUG THERAPY] Onset: 04-15-2022 Episodic Other connective tissue disease (1 source) Complete rotator cuff tear or rupture of right shoulder, not specified as traumatic; Translations: [Complete rotator cuff tear or rupture of right shoulder, not specified as traumatic] Onset: 01-11-2025 Episodic Other lower respiratory disease (4 sources) Shortness of breath; Translations: [SHORTNESS OF BREATH] Onset: 04-14-2022 Episodic Other screening for suspected conditions (not mental disorders or infectious disease) (13 sources) Encounter for screening mammogram for malignant neoplasm of breast; Translations: [Abnormal electrocardiogram [ECG] [EKG]] Onset: 10-20-2022 Episodic Residual codes; unclassified (1 source) Family history of cancer of colon; Translations: [Family history of malignant neoplasm of digestive organs] 10-22-2023 Episodic Residual codes; unclassified (2 sources) Other specified postprocedural states; Translations: [Other specified postprocedural states] Onset: 12-21-2024 Episodic Screening and history of mental health and substance abuse codes (1 source) Personal history of nicotine dependence; Translations: [PERSONAL HISTORY OF NICOTINE DEPEND] Onset: 04-15-2022 Episodic Unclassified (1 source) CONTACT W/AND (SUSP) EXPOS COVID-19; Translations: [CONTACT W/AND (SUSP) EXPOS COVID-19] Onset: 04-02-2022 Results Test Name Value Interpretation Reference Range Facility Orders Onlyon 05-05-2025 Orders Only [id number] Deepa Sears 1960 F Date Provider Department [facility] 05/05/2025 [id number], [facility] CARD Alejandro Anne Family History Problem Relation Age of Onset Coronary artery disease Mother Heart attack Maternal Grandmother Hypertension Maternal Grandmother Other Maternal Grandfather Family Status - Relation Status Age at Mother Father Alive Brother Alive Maternal Grandmother Maternal Grandfather [facility] 3604-03-2025 36 Regarding lab results from 03/07/2025: MD Ania Franco MA Please verify that she is on valsartan 80 mg daily and if so please add Inspra 25 mg daily and recheck BMP in 1 week. Also she has to call back with her blood pressure measurements in about 1 to 2 weeks. Lipids, AST ALT and BMP look good continue current management and recheck in 6 months Spoke with patient and made her aware. Lab order emailed to her. [facility] 36on 03-23-2025 36 MD Deepa Franco MA BMP after starting Entresto look good continue current management Advised patient of Dr. Lane's findings. Patient verbalized understanding. [facility] Orders Onlyon 03-15-2025 Orders Only [id number] Deepa Sears 1960 Provider Department Center 03/15/2025 ElifANIA KAMARA Family History Problem Relation Age of Onset Coronary artery disease Mother Heart attack Maternal Grandmother Hypertension Maternal Grandmother Other Maternal Grandfather Family Status - Relation Status Age at Mother Father Alive Brother Alive Maternal Grandmother Maternal Grandfather [facility] 36on 03-06-2025 36 This report has been cancelled. [facility] Office Visiton 02-13-2025 Follow-up visit [id number] Deepa Sears 1960 Provider Department Center 02/13/2025 [id number] Family History Problem Relation Age of Onset Coronary artery disease Mother Heart attack Maternal Grandmother Hypertension Maternal Grandmother Other Maternal Grandfather Family Status - Relation Status Age at Mother Father Alive Brother Alive Maternal Grandmother Maternal Grandfather Level of Service:25255 [place] OFFICE/OUTPATIENT ESTABLISHED MOD MDM 30 MIN Reason for Visit and Comments: Follow up PCI [Other] Hypertension [203685] Coronary Artery Disease [187] [facility] 02-03-2025 ANES ---- Attestation signed by Felipe Ferrara MD at 02/03/2025 8:19 AM I personally spoke with and examined Mrs. Sears and agree with above. ---- Patient: Deepa Sears Procedure Information Date/Time: 02/03/25829 Procedure: Percutaneous coronary intervention - PC APPROVED Location: [facility] / [facility] (Cath) Providers: Felipe Ferrara MD Clinical information reviewed: Allergies Meds OB Status Physical Exam Airway Mallampati: II TM distance: <3 FB Cardiovascular Rhythm: regular Rate: normal Dental Pulmonary Abdominal Anesthesia Plan ASA 3 other (Conscious ) Anesthetic plan and risks discussed with patient. Use of blood products discussed with patient who consented to blood products. Plan discussed with attending. Additional Equipment Requests [facility] HPon 02-03-2025 HP ---- Attestation signed by Felipe Ferrara MD at 02/03/2025 8:21 AM I spoke with and examined Mrs. Noel. Recent cath + for proximal LAD lesion with iFR of 0.8. Intervention deferred due to high puncture of femoral artery. In addition, she has had recent shoulder surgery and has somewhat limited mobility of R arm. Plan L radial approach and discussed help with ADLs post procedure. Will also plan elastoplast dressing post procedure to assure hemostasis post discharge if she does more with that arm. She understands the expected risks and agrees to proceed. ---- History Of Present Illness Deepa Sears is a 64 y.o. female presenting with known significant LAD disease (IFR +ve) here for PCI since shehad her right shoulder surgery. Past Medical History She has a past medical history of Abnormal ECG. Surgical History She has a past surgical history that includes Hysterectomy and Cardiac catheterization. Social History She reports that she quit smoking about 27 years ago. Her smoking use included cigarettes. She has never used smokeless tobacco. She reports current alcohol use. She reports that she does not use drugs. Allergies Fluconazole, Penicillins, Sulfa (sulfonamide antibiotics), and Ciprofloxacin Medications Medications Prior to Admission Medication Sig Dispense Refill Last Dose albuterol (Ventolin HFA) 90 mcg/actuation inhaler Inhale 1 puff in the morning, afternoon, and at bedtime. 02/02/2025 albuterol 2.5 mg /3 mL (0.083 %) nebulizer solution Take 2.5 mg by nebulization every 4 (four) hours if needed. 02/02/2025 aspirin 81 mg chewable tablet Chew 1 tablet (81 mg) in the morning. 90 tablet 3 02/03/2025 atorvastatin (Lipitor) 40 mg tablet Take 1 tablet (40 mg) by mouth in the morning. 90 tablet 3 02/02/2025 diclofenac (Voltaren) 75 mg EC tablet Take 1 tablet by mouth Twice daily at 6am and 6pm. 02/02/2025 empagliflozin (Jardiance) 10 mg Take 1 tablet (10 mg) by mouth once daily as directed. 90 tablet 3 02/02/2025 leflunomide (Arava) 20 mg tablet Take 20 mg by mouth in the morning. 02/02/2025 levothyroxine (Synthroid, Levoxyl) 150 mcg tablet TAKE 1 TABLET BY MOUTH EVERY DAY IN THE MORNING ON AN EMPTY STOMACH 02/03/2025 liothyronine (Cytomel) 5 mcg tablet Take 5 mcg by mouth in the morning. 02/03/2025 loratadine (Claritin) 10 mg tablet Take 10 mg by mouth in the morning. 02/02/2025 losartan (Cozaar) 25 mg tablet Take 1 tablet (25 mg) by mouth at bedtime. 90 tablet 3 02/02/2025 metoprolol succinate XL (Toprol-XL) 25 mg 24 hr tablet Take 2 tablets (50 mg) by mouth in the morning. Do not crush or chew. (Patient taking differently: Take 25 mg by mouth in the morning. Do not crush or chew.) 60 tablet 0 02/02/2025 omeprazole (PriLOSEC) [address] capsule Take 40 mg by mouth twice a day. 02/03/2025 nabumetone (Relafen) 500 mg tablet Take 500 mg by mouth in the morning. Not Taking ondansetron (Zofran) 4 mg tablet Take 8 mg by mouth every 8 (eight) hours if needed. Not Taking spironolactone (Aldactone) 25 mg tablet Take 1 tablet (25 mg) by mouth once daily as directed. (Patient not taking: Reported on 12/21/2024) 90 tablet 3 Not Taking Review of Systems GENERAL: Denies fever, chills, night sweats, weight loss. HEENT: Denies changes in vision, photophobia, changes in hearing, epistaxis, oral bleeding. CARDIOVASCULAR: Denies exertional dyspnea, orthopnea/PND, palpitations, lightheadedness/diz ziness. She reports occasional chest pain at rest, no exertional chest pain, occasional legs edema RESPIRATORY: Denies SOB, coughing, wheezing GI: Denies abdominal pain, nausea/vomiting, heartburn, melena/hematochezia . RENAL: Denies dysuria, hematuria, flank pain. MSK: Denies muscle weakness/pain, arthralgias/joint pain. NEUROLOGIC: Denies LOC, weakness, numbness, headaches. SKIN: Denies abnormal rashes or bleeding. PSYCH: Denies significant anxiety, depression, sleep disturbances. Physical Exam Constitutional: General Appearance: well-developed, appears stated age. Level of Distress: no acute distress. Neck: Jugular Veins: normal jugular venous pressure. Lungs: Auscultation: no rales or rhonchi and normal breath sounds. Cardiovascular: Rate And Rhythm: regular Heart Sounds: normal S1 and s2; Systolic Murmur: not heard. Diastolic Murmur: not heard. Extremities: mild edema Peripheral Pulses: Pulses: full and equal in all extremities except if noted. Abdomen: Inspection and Palpation: non distended or tender and soft. Musculoskeletal: Inspection: no joint tenderness or swelling. Frt shoulder in sling after sx Neurologic: Gait: normal gait. Psychiatric: Mental Status: alert and normal affect. Skin: Inspection and Palpation: warm and dry. Last Recorded Vitals Blood pressure (!) 167/91, pulse 71, resp. rate 16, SpO2 (more content not included)... [facility] NURSNOTEon 02-03-2025 NURSNOTE RN educated pt on d/c instructions. This included: site care, limited physical activity, resume normal diet, future appointments, medications, and moderate sedation instructions. RN educated pt on when to notify physician and when to go to the hospital. RN provided pt with arm sling and educated pt on importance of not using arm for 24 hours for radial sites. RN encouraged pt to voice any questions or concerns, and answered any questions or concerns if pt verbalized. Pt was wheeled off of unit with all of belongings. [facility] 36on 02-01-2025 36 Patient will wait until after PCI on 02/03/2025 to have COVID vaccination. Heydi Lozano MA [facility] 36 Patient left voicemail requesting a call back- No details given. Heydi Lozano MA [facility] BASIC METABOLIC PANELon 01-06 Anion gap [Moles/Vol] 9 mmol/L Normal 5-15 [facility] Comment on above: Performed By: #### B MP #### [facility] ([facility]) [address] [place] [address] VIR Calcium [Mass/Vol] 9.7 mg/dL Normal 8.5-10.5 [facility] Comment on above: Performed By: #### B MP #### [facility] ([facility]) [address] [place] [address] VIR Chloride [Moles/Vol] 101 mmol/L Normal 98-109 [facility] Comment on above: Performed By: #### B MP #### [facility] ([facility]) [address] [place] [address] VIR CO2 [Moles/Vol] 29 mmol/L Normal 22-32 [facility] Comment on above: Performed By: #### B MP #### [facility] ([facility]) [address] [place] [address] VIR Creatinine [Mass/Vol] 0.62 mg/dL Normal 0.40-1.00 [facility] Comment on above: Result Comment: METH OD TRACEABLE TO IDMS STANDARD Performed By: #### B MP #### [facility] ([facility]) [address] [place] [address] VIR EGFR (CKD-EPI) NON-RACE DEPENDENT >^90 Normal >=60 [facility] Comment on above: Result Comment: Repo rted eGFR is based on the CKD-EPI 2020 equation that does not use a race coefficient. Performed By: #### B MP #### [facility] ([facility]) [address] [place] [address] VIR Glucose [Mass/Vol] 100 mg/dL High 65-99 [facility] Comment on above: Performed By: #### B MP #### [facility] ([facility]) [address] [place] [address] VIR Potassium [Moles/Vol] 4.3 mmol/L Normal 3.5-5.0 [facility] Comment on above: Performed By: #### B MP #### [facility] ([facility]) [address] [place] [address] VIR Sodium [Moles/Vol] 139 mmol/L Normal 134-146 [facility] Comment on above: Performed By: #### B MP #### [facility] ([facility]) [address] [place] [address] VIR Urea nitrogen [Mass/Vol] 11 mg/dL Normal 5-27 [facility] Comment on above: Performed By: #### B MP #### [facility] ([facility]) [address] [place] [address] VIR CBC WITH AUTO DIFFERENTIALon 01-27-2025 BASOPHILS ABSOLUTE COUNT (10*3/UL) BY AUTOMATED COUNT 0.1 10*3/uL Normal 0.0-0.2 [facility] Comment on above: Performed By: #### C BCA #### [facility] ([facility]) [address] [place] [address] VIR BASOPHILS RELATIVE PERCENT BY AUTOMATED COUNT 1.4 % Normal [facility] Comment on above: Performed By: #### C BCA #### [facility] ([facility]) [address] [place] [address] VIR CELLAVISION DIFFERENTIAL TYPE AUTOMATED DIFFERENTIAL Normal [facility] Comment on above: Performed By: #### C BCA #### [facility] ([facility]) [address] [place] [address] VIR Eosinophils (Bld) [#/Vol] 0.2 10*3/uL Normal 0.0-0.4 [facility] Comment on above: Performed By: #### C BCA #### [facility] ([facility]) [address] [place] [address] VIR EOSINOPHILS RELATIVE PERCENT BY AUTOMATED COUNT 4.9 % Normal [facility] Comment on above: Performed By: #### C BCA #### [facility] ([facility]) [address] [address] [place] [address] VIR Erythrocyte distribution width (RBC) [Ratio] 12.8 % Normal 11.5-15 [facility] Comment on above: Performed By: #### C BCA #### [facility] ([facility]) [address] [place] [address] VIR Hematocrit (Bld) [Volume fraction] 42.5 % Normal 35-47 [facility] Comment on above: Performed By: #### C BCA #### [facility] ([facility]) [address] [place] [address] VIR Hemoglobin (Bld) [Mass/Vol] 14.2 g/dL Normal 11.7-15.5 [facility] Comment on above: Performed By: #### C BCA #### [facility] ([facility]) [address] [place] [address] VIR LYMPHOCYTES ABSOLUTE COUNT (10*3/UL) BY AUTOMATED COUNT 1.7 10*3/uL Normal 1.0-3.5 [facility] Comment on above: Performed By: #### C BCA #### [facility] ([facility]) [address] [place] [address] VIR LYMPHOCYTES RELATIVE PERCENT BY AUTOMATED COUNT 38.0 % Normal [facility] Comment on above: Performed By: #### C BCA #### [facility] ([facility]) [address] [place] [address] VIR MCH (RBC) [Entitic mass] 30.5 pg Normal 27-34 [facility] Comment on above: Performed By: #### C BCA #### [facility] ([facility]) [address] [place] [address] VIR MCHC (RBC) [Mass/Vol] 33.5 g/dL Normal 32-36 [facility] Comment on above: Performed By: #### C BCA #### [facility] ([facility]) [address] [place] [address] VIR MCV (RBC) [Entitic vol] 91 fL Normal 80-100 [facility] Comment on above: Performed By: #### C BCA #### [facility] ([facility]) [address] [place] [address] VIR MONOCYTES ABSOLUTE COUNT (10*3/UL) BY AUTOMATED COUNT 0.5 10*3/uL Normal 0.0-0.9 [facility] Comment on above: Performed By: #### C BCA #### [facility] ([facility]) [address] [place] [address] VIR MONOCYTES RELATIVE PERCENT BY AUTOMATED COUNT 10.3 % Normal [facility] Comment on above: Performed By: #### C BCA #### [facility] ([facility]) [address] [place] [address] VIR NEUTROPHILS ABSOLUTE COUNT BY AUTOMATED COUNT 2.1 10*3/uL Normal 1.5-6.6 [facility] Comment on above: Performed By: #### C BCA #### [facility] ([facility]) [address] [place] [address] VIR NEUTROPHILS RELATIVE PERCENT BY AUTOMATED COUNT 45.4 % Normal [facility] Comment on above: Performed By: #### C BCA #### [facility] ([facility]) [address] [place] [address] VIR Platelet mean volume (Bld) [Entitic vol] 7.6 fL Normal 7-12 [facility] Comment on above: Performed By: #### C BCA #### [facility] ([facility]) [address] [place] [address] VIR Platelets (Bld) [#/Vol] 246 10*3/uL Normal 150-450 [facility] Comment on above: Performed By: #### C BCA #### [facility] ([facility]) [address] [place] [address] VIR RBC COUNT 4.67 X10E12/L Normal 3.8-5.2 [facility] Comment on above: Performed By: #### C BCA #### [facility] ([facility]) [address] [place] [address] VIR WBC (Bld) [#/Vol] 4.5 10*3/uL Normal 4-11 [facility] Comment on above: Performed By: #### C BCA #### [facility] ([facility]) [address] [place] [address] VIR Orders Onlyon 01-25-2025 Orders Only [id number] Deepa Sears 1960 F Date Provider Department Center 01/25/2025 DELIA HERNADEZ [facility] Family History Problem Relation Age of Onset Coronary artery disease Mother Heart attack Maternal Grandmother Hypertension Maternal Grandmother Other Maternal Grandfather Family Status - Relation Status Age at Mother Father Alive Brother Alive Maternal Grandmother Maternal Grandfather Normal [facility] 36on 01-09-2025 36 Patient called she's still coughing out of the blue and sneezing since replacing losartan with spironolactone for cough. She says she's also getting extreme hot flashes . Hasn't been checking her BP recently. Just had shoulder surgery. Any recommendations? Normal [facility] Office Visiton 12-21-2024 Follow-up visit [id number] Deepa Sears 1960 Date Provider Department Center 12/21/2024 [id number] LUCAS Family History Problem Relation Age of Onset Coronary artery disease Mother Heart attack Maternal Grandmother Hypertension Maternal Grandmother Other Maternal Grandfather Family Status - Relation Status Age at Mother Father Alive Brother Alive Maternal Grandmother Maternal Grandfather Level of Service:17178 [place] OFFICE/OUTPATIENT ESTABLISHED LOW MDM 20 MIN Normal [facility] Orders Onlyon 12-21-2024 Orders Only [id number] Deepa Sears 1960 Date Provider Department Center 12/21/2024 DEEPA DE LA CRUZ Family History Problem Relation Age of Onset Coronary artery disease Mother Heart attack Maternal Grandmother Hypertension Maternal Grandmother Other Maternal Grandfather Family Status - Relation Status Age at Mother Father Alive Brother Alive Maternal Grandmother Maternal Grandfather Normal [facility] MAMM DIAGNOSTIC UNILAT RT W CADon 12-20-2024 MAMM DIAGNOSTIC UNILAT RT W CAD MAMM DIAGNOSTIC UNILAT RT W CAD DEEPA SEARS 1960 [id number] EXAM: MAMM DIAGNOSTIC UNILAT RT W CAD, 12/20/2024 12:28 PM CLINICAL INDICATIONS: Abnormal mammogram, Patient returns for additional imaging of an abnormality visualized on screening mammography from outside institution. COMPARISON: Mammogram 01/02/2022 and outside mammogram from 11/30/2024 and 10/29/2023. TECHNIQUE: Supplemental views of the right breast were obtained for diagnostic workup. Digital tomosynthesis images were obtained, with creation of synthetic 2D views. Computer aided detection was utilized. FINDINGS: There are scattered areas of fibroglandular density. Outside mammogram is limited quality on our PACS system with written report describing an asymmetry somewhere in the right breast without any further detail or localization. There are no suspicious masses, calcifications, or areas of architectural distortion, stable back to our mammogram of 01/02/2022. IMPRESSION: No mammographic evidence of malignancy. BI-RADS: BI-RADS 1 - Negative RECOMMENDATION: Routine screening mammogram in 1 year. Patient was given the results before leaving the department. 5 Finalized by Holden Tinoco MD on 12/20/2024 12:53 PM 1 b MAMM 1 YR [facility] 36on 12-08-[address] - patient can stop losartan and start spironolactone 25mg daily. Patient made aware. RX sent to her pharmacy. [facility] HPon 12-07-2024 ---- Attestation signed by Daxa Lane MD at 12/10/2024 11:05 AM I personally saw and examined the patient on the same date of service as resident/fellow Dr Garcia. I discussed the findings and therapeutic plan with the resident/fellow Dr Garcia. I agree with the documentation, except for any edits/updates below. Teaching Physician's Revisions: None Daxa Lane MD, [facility] ---- H&P reviewed. The patient was examined and there are no changes to the H&P. Mrs. Sears, a 64 year old female patient is scheduled for coronary angiogram for newly reduced EF via left radial access. [facility] NURSNOTAlan 12-07-2024 CAMMIE RN educated pt on d/c instructions. This included: site care, limited physical activity, resume normal diet, future appointments, medications, and moderate sedation instructions. RN educated pt on when to notify physician and when to go to the hospital. RN educated pt on importance of not overusing stairs at this time and limited weight bearing of 5lbs. RN encouraged pt to voice any questions or concerns, and answered any questions or concerns if pt verbalized. Pt was wheeled off of unit with all of belongings. RN provided pt with arm sling and educated pt on importance of not using arm for 24 hours for radial sites. [facility] NURSNOTE This report has been cancelled. [facility] 36on 12-05-2024 36 Patient called stating since starting metoprolol and losartan on 11/21/2024 she has had a dry cough and a slight tickle in the throat. Would you like to make a change? She is scheduled for heart cath on 12/07 with you. [facility] Telephoneon 12-05-2024 Telephone [id number] Renu,Ann Jim 1960 F Date Provider Department Center 12/05/2024 ANIA HASTINGS [facility] Family History Problem Relation Age of Onset Coronary artery disease Mother Heart attack Maternal Grandmother Hypertension Maternal Grandmother Other Maternal Grandfather Family Status - Relation Status Age at Mother Father Alive Brother Alive Maternal Grandmother Maternal Grandfather [facility] Orders Onlyon 11-21-2024 Orders Only [id number] Deepa Sears 1960 F Date Provider Department Center 11/21/2024 DEEPA DE LA CRUZ [facility] Family History Problem Relation Age of Onset Heart attack Maternal Grandmother Hypertension Maternal Grandmother Other Maternal Grandfather Family Status - Relation Status Age at Maternal Grandmother Maternal Grandfather [facility] HPon 11-07-2024 [facility] Note Reason for [...] fraction 35% 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 [...] long. Regarding family history: Maternal grandmother had AL in her left 70s, maternal grandfather had permanent pacemaker, mother had breast cancer, father had coronary artery disease and stents Cardiology ROS: GENERAL: Denies fever, chills, night sweats, weight loss. HEENT: Denies changes in vision, photophobia, changes in hearing, epistaxis, oral bleeding. CARDIOVASCULAR: Denies exertional dyspnea, orthopnea/PND, palpitations, lightheadedness/diz ziness. She reports occasional chest pain at rest, no exertional chest pain, occasional legs edema RESPIRATORY: Denies SOB, coughing, wheezing GI: Denies abdominal pain, nausea/vomiting, heartburn, melena/hematochezia . RENAL: Denies dysuria, hematuria, flank pain. MSK: [...] 8.8 Total bi (more content not included)... [facility] Office Visiton 11-07-2024 Follow-up visit [id number] Deepa Sears 1960 F Date Provider Department Center 11/07/2024 [id number] LANE NI [place] Family History Problem Relation Age of Onset Heart attack Maternal Grandmother Hypertension Maternal Grandmother Other Maternal Grandfather Family Status - Relation Status Age at Maternal Grandmother Maternal Grandfather Level of Service:94310 [place] OFFICE/OUTPATIENT NEW MODERATE MDM 45 MINUTES Reason for Visit and Comments: Cardiac Stress Test [489] - Denies chest pain and SOB. Abnormal ECG [293] - She had ECG on 10/25 for pre-surgery testing. Dr. Kimball ordered stress test due to abnormal ECG. Edema [[id number]] Palpitations [664495] - Feels palpitations sometimes in the mornings when she's still lying in bed. Normal [facility] Francisco 02-19-2024 L Specimen: [id number] Received: 02/19/24 Status: THOMAS Sy Num: [id number] Spec Type: Surgical Subm Dr: Lee Quiles DO Tissues: A Stomach - Biopsy/Polyp (ANTRUM) B Esophagus Biopsy (GE JUNCTION) Procedures: HE/4, Gross/Micro L4/2 Age/ Patient Sex Location Account Attending Physician Deepa Sears 63/F [facility] [id number] Lee Quiles DO SPEC NUM: [id number] RECD: 02/19/24 STATUS: THOMAS SY NUM: [id number] PREETI: 02/19/[address]: Lee Quiles DO ENTERED: 02/19/[address]: Alejandro,Lab SPEC TYPE: Surgical DEPT: [...] Mild gastritis and esophagitis, hiatal hernia Specimen: [id number] Received: 02/19/24 Status: GIOVANNYJose Sy Num: [id number] Spec Type: Surgical Subm Dr: Lee Quiles DO Tissues: A Stomach - Biopsy/Polyp (ANTRUM) B Esophagus Biopsy (GE JUNCTION) Procedures: HE/4, Gross/Micro L4/2 Patient: Deepa Sears [id number] (Continued) Specimen: [id number] Received: 02/19/24 (Continued) Signed (signatur e on file) Darshan Iniguez MD 02/22/242036 Specimen: [id number] Received: 02/19/24 Status: THOMAS Sy Num: [id number] Spec Type: Surgical Subm Dr: Lee Quiles,DO Tissues: A Stomach - Biopsy/Polyp (ANTRUM) B Esophagus Biopsy (GE JUNCTION) Procedures: /David, Gross/Micro L4/2 Patient: Deepa Sears [id number] (Continued) Specimen: [id number] Received: 02/19/24 (Continued) Gross Description Received are [...] cm, entirely submitted in B1. CPT Codes 91267J4 Specimen: [id number] Received: 02/19/24-1308 Status: THOMAS Sy Num: [id number] Spec Type: Surgical Subm Dr: Lee Quiles DO Tissues: A Stomach - Biopsy/Polyp (ANTRUM) B Esophagus Biopsy (GE JUNCTION) Procedures: JANET/David, Gross/Micro L4/2 Patient: Deepa Sears [id number] (Continued) Signed (signatur e on file) Darshan Iniguez MD 02/22/242036 [facility] Surgical PathologyOrdered By : Sheron Molina on 02-19-2024 Uguru XR CHEST 2 Von 12-24-2022 XR CHEST [...] by: EDDIE OROSCO Date: 2022-12-24 16:25 Normal [facility] MG MAMM SCREEN 3D DALE CADon 10-20-2022 MG MAMM SCREEN 3D DALE CAD Patient: DEEPA SEARS Exam Date: 10/20/2022 : 1960 Gender:F Ordering : DR REAL KIMBALL . Admission #: [id number] Family : Order #: [id number] CLICK HERE TO VIEW EXAM RADIOLOGY REPORT [...] breast cancer at age 70. LOCATION: [facility] BREAST COMPOSITION: Heterogeneously dense,which may obscure small [...] Sevilla MD on 10/20/2022 at 12:00 Normal [facility] SARS-CoV-2 (COVID-19) RNA EMMANUEL+probe Ql (Unsp spec) Not detected Normal NOT DETECTED [facility] Comment on above: Result Comment: When diagnostic [...] for this test is supported by the Program Director [place] of Health and Human Service's declaration that [...] used). Performed By: #### C VDTBH #### [facility] Laboratory [address] [place] [address] Dr. Cindi Iniguez INFLUENZA A AND B AGon 10-08 INFLUANE SEE BELOW Normal [facility] Comment on above: Result Comment: Nega tive for Flu A protein angiten. Infection due to Flu A cannot be ruled out. Flu A angiten in the sample may be below the detection limit of the test. Performed By: #### C MP, BNP, HSTROPN #### [facility] [address] [address] [address] [facility] BEL[facility] Normal [facility] Comment on above: Result Comment: Nega tive for Flu B protein antigen. Infection due to Flu B cannot be ruled out. Flu B antigen in the sample may be below the detection limit of the test. Performed By: #### C MP, BNP, HSTROPN #### [facility] [address] [address] [address] Cindi Iniguez INFLUENZA A AG Negative Normal NEGATIVE SEE COMMENT [facility] Comment on above: Performed By: #### C MP, BNP, HSTROPN #### [facility] [address] [place] [address] Dr. Cindi Iniguez INFLUENZA B AG Negative Normal NEGATIVE SEE COMMENT [facility] Comment on above: Performed By: #### C MP, BNP, HSTROPN #### [facility] [address] [place] [address] Dr. Cindi Iniguez Cov[facility] ([facility] 07-09 SARS-CoV-2 (COVID-19) RNA EMMANUEL+probe Ql (Unsp spec) Not detected Normal NOT DETECTED [facility] Comment on above: Result Comment: When diagnostic [...] for this test is supported by the [place] of Health and Human Service's declaration that [...] used). Performed By: #### C VDTBH #### [facility] [address] [place] [address] Dr. Cindi Iniguez BNPon 04-14-2022 Natriuretic peptide B (Bld) [Mass/Vol] 583.0 pg/mL Normal <=900.0 [facility] Comment on above: Performed By: #### C MP, BNP, HSTROPN #### [facility] [address] [place] [address] Dr. Cindi Iniguez CBC AUTO DIFFon 04-14-2022 BASO # 0.0 103/ul Normal 0.0-0.1 [facility] Comment on above: Performed By: #### C BC #### [facility] [address] [address] [address] Cindi Iniguez Basophils/100 WBC (Bld) 0.2 % Normal 0.2-2.0 [facility] Comment on above: Performed By: #### C BC #### [facility] [address] [address] [address] Cindi Iniguez EO # 0.0 103/ul Normal 0.0-0.7 [facility] Comment on above: Performed By: #### C BC #### [facility] [address] [address] [address] Cindi Iniguez Eosinophils/100 WBC (Bld) 0.3 % Critically low 0.9-7.0 [facility] Comment on above: Performed By: #### C BC #### [facility] [address] [place] [address] Dr. Cindi Iniguez Erythrocyte distribution width (RBC) [Ratio] 12.6 % Normal 11.0-15.0 [facility] Comment on above: Performed By: #### C BC #### [facility] [address] [place] [address] Dr. Cnidi Iniguez Hematocrit (Bld) [Volume fraction] 43.3 % Normal 36.0-48.0 [facility] Comment on above: Performed By: #### C BC #### [facility] [address] [place] [address] Dr. Cindi Iniguez Hemoglobin (Bld) [Mass/Vol] 14.5 g/dL Normal 12.0-16.0 [facility] Comment on above: Performed By: #### C BC #### [facility] [address] [address] [address] Cindi Iniguez IG # 0.07 10e3/ul Critically high 0.00-0.03 [facility] Comment on above: Performed By: #### C BC #### [facility] [address] [place] [address] Dr. Cindi Iniguez IG % 0.5 % Normal 0.0-0.5 [facility] Comment on above: Performed By: #### C BC #### [facility] [address] [address] [address] Cindi Iniguez LYMPH # 1.8 103/ul Normal 1.2-3.8 [facility] Comment on above: Performed By: #### C BC #### [facility] [address] [place] [address] Dr. Cindi Iniguez Lymphocytes/100 WBC (Bld) 12.9 % Critically low 20.5-60.0 [facility] Comment on above: Performed By: #### C BC #### [facility] [address] [place] [address] Dr. Cindi Iniguez MANUAL DIFF REQ NO Normal [facility] Comment on above: Performed By: #### C BC #### [facility] [address] [place] [address] Dr. Cindi Iniguez MCH (RBC) [Entitic mass] 30.5 pg Normal 26.7-34.0 [facility] Comment on above: Performed By: #### C BC #### [facility] [address] [place] [address] Dr. Cindi Iniguez MCHC (RBC) [Mass/Vol] 33.5 g/dL Normal 29.9-35.2 [facility] Comment on above: Performed By: #### C BC #### [facility] [address] [place] [address] Dr. Cindi Iniguez MCV (RBC) [Entitic vol] 91.0 fL Normal 81.0-99.0 [facility] Comment on above: Performed By: #### C BC #### [facility] [address] [place] [address] Dr. Cindi Iniguez MONO # 1.0 103/ul Critically high 0.3-0.8 [facility] Comment on above: Performed By: #### C BC #### [facility] [address] [place] [address] Dr. Cindi Iniguez Monocytes/100 WBC (Bld) 7.1 % Normal 1.7-12.0 [facility] Comment on above: Performed By: #### C BC #### [facility] [address] [address] [address] Cindi Iniguez NEUT # 10.9 103/ul Critically high 1.4-6.5 [facility] Comment on above: Performed By: #### C BC #### [facility] [address] [address] [address] Cindi Iniguez Neutrophils/100 WBC (Bld) 79.0 % Critically high 43.0-75.0 [facility] Comment on above: Performed By: #### C BC #### [facility] [address] [place] [address] Dr. Cindi Iniguez Platelet mean volume (Bld) [Entitic vol] 8.8 fL Critically low 9.5-13.5 [facility] Comment on above: Performed By: #### C BC #### [facility] [address] [place] [address] Dr. Cindi Iniguez PLT 207 103/ul Normal 150-450 [facility] Comment on above: Performed By: #### C BC #### [facility] [address] [place] [address] Dr. Cindi Iniguez RBC 4.76 106/ul Normal 4.20-5.40 [facility] Comment on above: Performed By: #### C BC #### [facility] [address] [place] [address] Dr. Cindi Iniguez WBC 13.8 103/ul Critically high 4.0-11.0 [facility] Comment on above: Performed By: #### C BC #### [facility] [address] [place] [address] Dr. Cindi Iniguez CTA CHEST WO W [...] BAR Date: 2022-04-14 16:28 Normal [facility] PROF 14(COMP METB)on 022 Albumin [Mass/Vol] 3.5 g/dL Normal 3.4-5.0 [facility] Comment on above: Performed By: #### C MP, BNP, HSTROPN #### [facility] [address] [place] [address] Dr. Cindi Iniguez Albumin/Globulin [Mass ratio] 1.0 {ratio} Normal [facility] Comment on above: Performed By: #### C MP, BNP, HSTROPN #### [facility] [address] [place] [address] Dr. Cindi Iniguez ALP [Catalytic activity/Vol] 64 U/L Normal 46-116 [facility] Comment on above: Performed By: #### C MP, BNP, HSTROPN #### [facility] [address] [place] [address] Dr. Cindi Iniguez ALT [Catalytic activity/Vol] 44 U/L Normal 14-59 [facility] Comment on above: Performed By: #### C MP, BNP, HSTROPN #### [facility] [address] [place] [address] Dr. Cindi Iniguez Anion gap [Moles/Vol] 12.5 mmol/L Normal [facility] Comment on above: Performed By: #### C MP, BNP, HSTROPN #### [facility] [address] [place] [address] Dr. Cindi Iniguez AST [Catalytic activity/Vol] 21 U/L Normal 15-37 [facility] Comment on above: Performed By: #### C MP, BNP, HSTROPN #### [facility] [address] [place] [address] Dr. Cindi Iniguez Bilirubin [Mass/Vol] 0.3 mg/dL Normal 0.2-1.0 [facility] Comment on above: Performed By: #### C MP, BNP, HSTROPN #### [facility] [facility] [address] [place] [address] Dr. Cindi Iniguez Calcium [Mass/Vol] 9.1 mg/dL Normal 8.5-10.1 [facility] Comment on above: Performed By: #### C MP, BNP, HSTROPN #### [facility] [address] [place] [address] Dr. Cindi Iniguez Chloride [Moles/Vol] 97 mmol/L Critically low 98-107 [facility] Comment on above: Performed By: #### C MP, BNP, HSTROPN #### [facility] [address] [place] [address] Dr. Cindi Iniguez CO2 [Moles/Vol] 29.8 mmol/L Normal 21.0-32.0 [facility] Comment on above: Performed By: #### C MP, BNP, HSTROPN #### [facility] [address] [place] [address] Dr. Cindi Iniguez Creatinine [Mass/Vol] 1.06 mg/dL Critically high 0.55-1.02 [facility] Comment on above: Performed By: #### C MP, BNP, HSTROPN #### [facility] [address] [place] [address] Dr. Cindi Iniguez EGFR-AF MONEGASQUE >60 Normal >=60 [facility] Comment on above: Performed By: #### C MP, BNP, HSTROPN #### [facility] [address] [place] [address] Dr. Cindi Iniguez EGFR-NON AF MONEGASQUE 53 mL/min/1.73m2 Critically low >=60 [facility] Comment on above: Performed By: #### C MP, BNP, HSTROPN #### [facility] [address] [place] [address] Dr. Cindi Iniguez Globulin (S) [Mass/Vol] 3.6 g/dL Normal [facility] Comment on above: Performed By: #### C MP, BNP, HSTROPN #### [facility] [address] [address] [address] Cindi Iniguez Glucose [Mass/Vol] 109 mg/dL Critically high 74-106 T [facility] Comment on above: Performed By: #### C MP, BNP, HSTROPN #### [facility] [address] [address] [address] Cindi Iniguez Potassium [Moles/Vol] 4.3 mmol/L Normal 3.5-5.1 [facility] Comment on above: Performed By: #### C MP, BNP, HSTROPN #### [facility] [address] [place] [address] Dr. Cindi Iniguez Protein [Mass/Vol] 7.1 g/dL Normal 6.4-8.2 [facility] Comment on above: Performed By: #### C MP, BNP, HSTROPN #### [facility] [address] [place] [address] Dr. Cindi Iniguez Sodium [Moles/Vol] 135 mmol/L Critically low 136-145 Th [facility] Comment on above: Performed By: #### C MP, BNP, HSTROPN #### [facility] [address] [place] [address] Dr. Cindi Iniguez Urea nitrogen [Mass/Vol] 17.0 mg/dL Normal 7.0-18.0 [facility] Comment on above: Performed By: #### C MP, BNP, HSTROPN #### [facility] [address] [place] [address] Dr. Cindi Iniguez Urea nitrogen/Creatinine [Mass ratio] 16.0 mg/mg Normal [facility] Comment on above: Performed By: #### C MP, BNP, HSTROPN #### [facility] [address] [place] [address] Dr. Cindi Iniguez PROTIMEon 04-14-2022 INR Coag (PPP) [Relative time] 0.93 {INR} Normal [facility] Comment on above: Performed By: #### P TT, PT #### [facility] [address] [place] [address] Dr. Cindi Iniguez INR GUIDELINES SEE BELOW Normal [facility] Comment on above: Result Comment: MESSI RED INR: 2.0 - 3.0 CONDITIONS NOT LISTED BELOW 2.5 - 3.5 FOR PROSTHETIC HEART VALVE REPLACEMENT 2.5 - 3.5 RECURRENT THROMBOSIS Performed By: #### P TT, PT #### [facility] [address] [address] [address] Cindi Iniguez PT Coag (PPP) [Time] 10.1 s Normal 9.0-11.6 [facility] Comment on above: Performed By: #### P TT, PT #### [facility] [address] [place] [address] Dr. Cindi Iniguez PTTon 04-14-2022 aPTT Coag (Bld) [Time] 23.8 s Normal 22.3-36.2 [facility] Comment on above: Performed By: #### C MP, BNP, HSTROPN #### [facility] [address] [place] [address] Dr. Cindi Iniguez TROPONIN, HIGH SENSITIVITYon 04-14-2022 HSTROP 27.4 pg/mL Normal 4.0-51.3 [facility] Comment on above: Result Comment: CUT- OFF POINTS HAVE BEEN ESTABLISHED BASED ON THE FOURTH UNIVERSAL DEFINITIONS OF MYOCARDIAL INFARCTION. THE UPPER REFERENCE LIMIT (URL) OF TROPONIN, DEFINED THE 99TH PERCENTILE OF cTnI DISTRIBUTION IN A REFERENCE POPULATION, HAS BEEN CONFIRMED THE DECISION THRESHOLD FOR AL DIAGNOSIS. Performed By: #### C MP, BNP, HSTROPN #### [facility] [address] [place] [address] Dr. Cindi Iniguez Covid-19 PCR (CVDTBH)on 03-08 SARS-CoV-2 (COVID-19) RNA EMMANUEL+probe Ql (Unsp spec) Detected Critically abnormal NOT DETECTED The [facility] Comment on above: Result Comment: This test is not yet approved or cleared by the [place] FDA. When there are no FDA-approved or cleared tests available, and other criteria are met, FDA can make tests available under an emergency access mechanism called an Emergency Use Authorization (EUA). The EUA for this test is supported by the Program Director [place] of Health and Human Service's (HHS's) declaration [...] By: #### C MP, BNP, HSTROPN #### [facility] [address] [place] [address] Dr. Cindi Iniguez Vital Signs Date Time Vital Sign Value Performing Clinician Facility 12-30-2024 15:13-0400 Heart rate 63 /min Raymond Davila MD Work Phone: [facility] [employer] [facility] 12-30-2024 15:13-0400 Respiratory rate 17 /min Raymond Davila MD Work Phone: [facility] [employer] [facility] 12-30-2024 15:13-0400 SaO2% (BldA) [Mass fraction] 94 % Raymond Davila MD Work Phone: [employer] 12-30-2024 15:00-0400 Diastolic blood pressure 57 mm[Hg] Raymond Davila MD Work Phone: [facility] [employer] 12-30-2024 15:00-0400 Systolic blood pressure 141 mm[Hg] Raymond Davila MD Work Phone: [facility] [employer] 12-30-2024 14:33-0400 Body temperature 97.39 [degF] Raymond Davila MD Work Phone: [facility] [employer] 12-30-2024 09:36-0400 Body height 162.6 cm Raymond Davila MD Work Phone: [employer] 12-26-2024 14:57-0400 Body mass index (BMI) [Ratio] 32.61 kg/m2 Raymond Davila MD Work Phone: [facility] 12-26-2024 14:57-0400 Body weight 86.18 kg Raymond Davial MD Work Phone: [facility] 10-22-2023 15:23-0500 Body mass index (BMI) [Ratio] 36.39 kg/m2 [employer] Work Phone: [employer] 10-22-2023 15:23-0500 Body weight 96.16 kg [employer] Work Phone: [employer] Encounters Encounter Date Encounter Type Care Provider Facility Start: 05-09-2025 ambulatory [facility] Start: 04-07-2025 ambulatory [facility] Start: 03-07-2025 ambulatory [facility] Start: 02-13-2025 End: 02-13-2025 ambulatory [facility] Start: 02-06-2025 ambulatory [facility] Start: 02-03-2025 ambulatory [facility] Start: 02-03-2025 End: 02-03-2025 ambulatory FEL[facility] Start: 01-27-2025 ambulatory FELIPE [facility] Start: 01-11-2025 ambulatory [facility] Start: 12-30-2024 End: 12-30-2024 ambulatory [facility] Start: 12-30-2024 End: 12-30-2024 Subsequent hospital visit by physician Raymond Davila MD Work Phone: [facility] Comment on above: Postoperative pain ( Primary Dx) Start: 12-26-2024 ambulatory [facility] Start: 04-21-2025 Encounter for genera l adult medical examination without abnormal findings RAYMOND [facility] Start: 12-26-2024 End: 12-26-2024 Subsequent hospital visit by physician [facility] Start: 12-21-2024 End: 12-21-2024 ambulatory CHUCK LUC[facility] Start: 12-20-2024 End: 12-20-2024 ambulatory [facility] Start: 12-13-2024 ambulatory [facility] Start: 12-07-2024 End: 12-07-2024 ambulatory [facility] Start: 11-07-2024 End: 11-07-2024 ambulatory [facility] Start: 07-13-2024 End: 07-13-2024 Refill Lee Quiles DO Work Phone: [facility] Start: 05-06-2024 End: 05-06-2024 Refill Lee Quiles DO Work Phone: [facility] Start: 03-02-2024 End: 03-02-2024 Orders Only Not In System Ref Prov [facility] Start: 02-19-2024 End: 02-19-2024 ambulatory Lee Quiles [facility] Work Phone: Start: 02-19-2024 End: 02-19-2024 Departed Referred DO Lee Quiles Work Phone: [facility] Start: 10-22-2023 End: 10-22-2023 Office outpatient new 30 minutes Soraida Hawkins [employer] Work Phone: [facility] Comment on above: Family [...] Not Ref Pr ov Start: 10-11-2018 Colonoscopy Soraida núñez [employer] Work Phone: Plan of Treatment Date Care Activity Detail Author Start: 2035 Respiratory Syncytia l Virus (RSV) or age 60 yrs+ (1 - 1-dose 75+ series) Respiratory Syncytial Virus (RSV) or age 60 yrs+ (1 - 1-dose 75+ series) [facility] Start: 11-04-2028 Screening for malign ant neoplasm of colon Colonoscopy [facility] Start: 04-07-2025 Influenza vaccination Flu vacc ine (Season Ended) [facility] Start: 12-30-2024 End: 12-30-2024 Admission to same day surgery center 12/30/2024 10:00 AM EDT - 12/30/2024 11:34 AM EDT Surgery [facility] [address] [place] [address] Raymond Davila MD [address] [place] [address] RIGHT SHOULDER ARTHROSCOPIC ROTATOR CUFF REPAIR [facility] Comment on above: RIGHT SHOULDER ARTHR OSCOPIC ROTATOR CUFF REPAIR Start: 12-30-2024 End: 12-30-2024 Arthroscopy shoulder rotator cuff repair [facility] Start: 12-30-2024 Subsequent hospital visit by physician 12/30/2024 10:00 AM EDT Hospital Encounter [facility] [address] [place] [address] Raymond Davila MD [address] [place] [address] [facility] Start: 11-04-2024 Adult BMI Screening Adult BMI Screen ing [facility] Start: 11-04-2024 Tobacco Screening Tobacco Screening [facility] Start: 10-22-2024 Adult BMI Screening Adult BMI Screen ing [facility] Start: 10-22-2024 Tobacco Screening Tobacco Screening [facility] Start: 05-08-2024 COVID-19 Vaccine ( season) COVID-19 Vaccine ( season) [facility] Start: 05-08-2024 COVID-19 Vaccine ( season) COVID-19 Vaccine ( season) [facility] Start: 05-08-2024 COVID-19 Vaccine ( season) COVID-19 Vaccine ( season) [facility] Start: 05-08-2024 Influenza vaccination Influenza Vacc ine [facility] Start: 11-05-2023 End: 11-05-2023 Admission to same day surgery center 11/05/2023 11:00 AM [facility] - 11/05/2023 11:30 AM [facility] Surgery [address] [id number] Lee Quiles, [address] [place] [address] COLONOSCOPY DIAGNOSTIC / SCREENING [85071 (CPT )] [facility] Comment on above: COLONOSCOPY DIAGNOST IC / SCREENING [06055 (CPT )] Start: 11-05-2023 End: 11-05-2023 Colonoscopy flx dx w/collj spec when pfrmd COLONOSCOPY DIAGNOSTIC / SCREENING Family history of colon cancer 11/05/2023 11:00 AM [facility] Start: 11-05-2023 Subsequent hospital visit by physician 11/05/2023 11:00 AM EST Hospital Encounter [facility] [address] [place] [id number] Lee Quiles, DO [address] [place], [place] [id number] [facility] Start: 10-29-2023 End: 10-29-2023 ambulatory 10/29/2023 2:10 PM EST Support Visit [facility] - Pre Admit [address] [place] [phone] [facility] Pre Admit Start: 10-11-2023 Screening for malign ant neoplasm of colon Colonoscopy [facility] Start: 2020 Respiratory Syncytia l Virus (RSV) or age 60 yrs+ (1 - Risk 60-74 years 1-dose series) Respiratory Syncytial Virus (RSV) or age 60 yrs+ (1 - Risk 60-74 years 1-dose series) [facility] Start: 2010 Administration of varicella zoster vaccine Zoster (Shingles) Vaccine (1 of 2) [facility] Start: 1979 DTaP,Tdap and Td Vac cines (1 - Tdap) DTaP,Tdap and Td Vaccines (1 - Tdap) [facility] Start: 1979 DTaP/Tdap/Td vaccine (1 - Tdap) DTaP/Tdap/Td vaccine (1 - Tdap) [facility] Start: 1978 Adult BMI Follow Up Plan Adult BMI Follow Up Plan [facility] Start: 1972 Depression Screening Depression Scre ening [facility] End: 10-22-2024 Colonoscopy Colonoscopy GI Routine Family history of malignant neoplasm of colon 1 Occurrences starting 10/22/2023 until 10/22/2024 [facility] Work Phone: Comment on above: 1 Occurrences starti ng 10/22/2023 until 10/22/2024 Immunizations Immunization Date Immunization Notes Care Provider Fa cility 06-17-2023 influenza virus vacc ine, unspecified formulation Not Ref Prov [facility] Payers Date Payer Category Payer Self-pay 2023 Managed Care Other (unspecified) [facility] [id number] 2023 Private Health Insurance [facility] CHOICE PLUS [id number] 2023-Present [phone] [address] [place] [id number] 2015 Private Health Insurance [id number] 1960 Unknown [id number] [id number]. 2.593 1960 Unknown [id number] 2.16.840.1.377446.3.579. 2.593 1960 Unknown [id number] 2.16.840.1.580649.3.579. 2.593 1960 Unknown [id number] 2.16.840.1.224448.3.579. 2.593 1960 Unknown [id number] 2.16.840.1.592538.3.579. 2.593 1960 Unknown [id number] 2.16.840.1.863214.3.579. 2.593 1960 Unknown [id number] 2.16.840.1.990246.3.579. 2.593 1960 Unknown [id number] 2.16.840.1.278205.3.579. 2.1286 1960 Unknown [id number] 2.16.840.1.011094.3.579. 2.1286 1960 Unknown [id number] 2.16.840.1.339838.3.579. 2.174 1960 Unknown [id number] 2.16.840.1.926764.3.579. 2.1286 1960 Unknown [id number] 2.16.840.1.678926.3.579. 2.1286 1960 Unknown [id number] 2.16.840.1.625180.3.579. 2.1286 1960 Unknown [id number] 2.16.840.1.540726.3.579. 2.1286 1960 Unknown [id number] 2.16.840.1.014311.3.579. 2.1286 1960 Unknown [id number] 2.16.840.1.183135.3.579. 2.1286 1960 Unknown [id number] 2.16.840.1.698313.3.579. 2.1286 1959 Private Health Insurance [id number] 1959 Self-pay [id number] Social History Date Type Detail Facility Tobacco smoking stat [facility] Unknown if ever smoked [facility] Start: 1960 Sex Assigned At Female F [facility] Start: 12-31-2022 End: 12-26-2024 Tobacco smoking status NHIS Ex-smoker [facility] Start: 08-28-1976 End: 08-28-1998 History of tobacco use Current smoker [facility] Start: 08-28-1976 End: 08-28-1998 History of tobacco use Cigarette Smoker [facility] Start: 12-31-2022 End: 12-26-2024 Tobacco use and exposure Smokeless tobacco non-user [facility] Start: 10-22-2023 End: 12-30-2024 Alcohol intake Current drinker of alcohol (finding) [facility] Start: 12-30-2021 End: 12-30-2024 History of Social function [facility] Work Phone: Start: 12-30-2021 End: 12-30-2024 Alcohol Use Disorder Identification Test - Consumption [AUDIT-C] [facility] Work Phone: How often to you hav e a drink containing alcohol? Monthly or less [facility] Work Phone: How many standard dr inks containing alcohol do you have on a typical day? 5 or 6 [facility] How often do you hav e 6 or more drinks on 1 occasion? Less than monthly [facility] Unknown [facility] Start: 09-28-2018 End: 12-26-2024 Alcohol Comment social [facility] Start: 1960 Sex Assigned At Not on file P [facility] Start: 09-22-2018 End: 12-26-2024 Sex Female (finding) [facility] Medical Equipment Procedure Code Equipment Code Equipment Origin al Text Equipment Identifier Dates Wesley Sut L19.1 mm Dia5.5mm Biocomposite Full Thrd Knotless - [id number] Start: 12-30-2024 Clinical Notes 10-22-2023 to 02-13-2025 Discharge Yennifer Cardona RN - 12/26/2024 3:04 PM EDTTelephone Encounter - Anabell Herrera CMA - 03/02/2024 1:22 PM EDTTelephone Encounter - Anabell Herrera CMA - 03/02/2024 1:22 PM EDT Note Date & Type Note Facility 02-13-2025 Note [facility] Note Reason for cardiology visit: Follow-up after angioplasty Chief Complaint: None HPI: 02/13/2025 The patient is here to today for follow-up visit. She reports that she has been doing well. She denies any chest discomfort at rest or with exertion. Sometimes she has little gastric heartburn not related to exertion. She denies exertional dyspnea, orthopnea or paroxysmal nocturnal dyspnea. She denies dizziness or palpitation or legs edema or discomfort on exertion. Patient states that spironolactone caused her to have sneezing and cough therefore she stopped it. She reports that she never received losartan. She is currently on aspirin, Plavix, atorvastatin, Toprol-XL and Jardiance only. She is still undergoing physical therapy after right shoulder surgery and she is not back to work yet 12/21/2024 office visit by Chuck Lucas NP Patient was seen and evaluated in the office today. She reports longstanding lower extremity edema, present for over 10 years, which she states has been unresponsive to diuretics previously prescribed by her primary care provider. She notes the swelling improves with leg elevation. She otherwise denies chest pain, shortness of breath, palpitations, lightheadedness, or dizziness. 11/07/2024 Deepa Sears is a 64 y.o. 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 [...] long. Regarding family history: Maternal grandmother had AL in her left 70s, maternal grandfather had permanent pacemaker, mother had breast cancer, father had coronary artery disease and stents ROS: All systems were reviewed and they were negative except for the positive findings noted above in the history Past Medical History She has a past medical history of Abnormal ECG, CHF (congestive heart failure) (CMS/HCC), Coronary artery disease, and Hyperlipidemia. Surgical History She has a past surgical history that includes Hysterectomy; Cardiac catheterization; and Coronary stent placement. Social History She reports that she quit smoking about 27 years ago. Her smoking use included cigarettes. She has never used smokeless tobacco. She reports current alcohol use. She reports that she does not use drugs. Family History Family History Problem Relation Name Age of Onset Coronary artery disease Mother Heart attack Maternal Grandmother Hypertension Maternal Grandmother Other (pacemaker) Maternal Grandfather Allergies Fluconazole, Penicillins, Sulfa (sulfonamide antibiotics), and Ciprofloxacin Medications Current Outpatient Medications: aspirin 81 mg chewable tablet, Chew 1 tablet (81 mg) in the morning., Disp: 90 tablet, Rfl: 3 atorvastatin (Lipitor) 40 mg tablet, Take 1 tablet (40 mg) by mouth in the morning., Disp: 90 tablet, Rfl: 3 clopidogrel (Plavix) 75 mg tablet, Take 1 tablet (75 mg) by mouth in the morning., Disp: 90 tablet, Rfl: 3 empagliflozin (Jardiance) 10 mg, Take 1 tablet (10 mg) by mouth once daily as directed., Disp: 90 tablet, Rfl: 3 leflunomide (Arava) 20 mg tablet, Take 20 [...] mouth in the morning., Disp: , Rfl: metoprolol suc (more content not included)... [facility] 12-30-2024 Hospital Discharg e instructions Raymond Davila MD - 12/30/2024 2:44 PM EDT SAME DAY SURGERY INSTRUCTIONS 1. Do not drive or operate hazardous machinery. 2. Do not make important personal or business decisions for 24 hours. 3. Do not drink alcoholic beverages. 4. Do not smoke tobacco products. 5. Eat light foods initially (i.e., Jell-O, soups, etc) and drink plenty of fluids. 6. If your bandages become soaked with a bright red blood, place another dressing pad over your bandages. (Do not remove original bandage.) Call your surgeon for further instructions. A small amount of bright red blood is to be expected. 7. Limit your activities. Do not engage in heavy work until your surgeon gives you permission. 8. Report the following signs or any questions regarding your physical condition to your surgeon immediately: Excessive swelling of, or around, the wound area Redness Temperature of 101 (degrees F) or above Excessive pain 9. Call your surgeon, , for any questions regarding your surgery. Call [phone] for urgent questions after 5PM until 8AM 10. Call for an appointment to see your surgeon in 2 weeks. SPECIAL INSTRUCTIONS AND MEDICATIONS 1. Use sling for 6 weeks. No active shoulder motion for 6 weeks. Elbow extension is allowed and encouraged. Passive elbow flexion is allowed. You can actively flex your elbow. 2. Move fingers and wrist to improve circulation. 3. Use prescribed pain pill as directed by the doctor. You may use Tylenol if you prefer. 4. Keep your dressing on an dry for 2 days then remove dressing. Place new gauze and tape or waterproof Band-Aids. 5. Use ice as needed for pain relief. 6. Remove operative bandages: 01/01. Then, you may shower if wound is clean and dry. 7. Keep incisions/dressings dry. If they happen to get wet remove wet dressing and place a new dry dressing. 12/30/2024 2:43 PM documented in this encounter [facility] 12-26-2024 History of Presen t illness Narrative [facility] Preadmission Testing Name: Deepa Sears : 1960 Patient (home) Procedure: RIGHT SHOULDER ARTHROSCOPIC ROTATOR CUFF REPAIR - Right Date of Procedure: 12/30/2024 Surgeon: Raymond Davila MD Ht: 162.6 cm (5' 4 ) Wt: 86.2 kg (190 lb) Wt method: Stated Allergies: Allergies Allergen Reactions Pcn [Penicillins] Angioedema Sulfa Antibiotics Angioedema There were no vitals filed for this visit. No LMP recorded. Do you take blood thinners? [x] Yes [] No ASA 81mg Instructed to stop blood thinners prior to procedure? [x] Yes [] No [] N/A Do you have sleep apnea? [] Yes [x] No Do you have acid reflux ? [] Yes [x] No Do you have hiatal hernia? [] Yes [x] No Do you ever experience motion sickness? [] Yes [x] No Have you had a respiratory infection or sore throat in last 4 weeks before surgery? [] Yes [x] No Do you have poorly controlled asthma or COPD? Difficulty with intubation in past? [] Yes [x] No [] Yes [x] No Do you have a history of angina in the last month or symptomatic arrhythmia? [] Yes [x] No Do you have significant central nervous system disease? [] Yes [x] No Have you had an EKG, labs, or chest xray in last 12 months? If yes provide copies to anesthesia [x] Yes [] No [x] Lab [x] EKG [x] CXR Have you had a stress test? [x] Yes [] No When/where:October-November 2024 Was it normal? [x] Yes [] No Do you or your family have a history of Malignant Hyperthermia? [] Yes [x] No Do you smoke? [] Yes [x] No Please refrain from smoking on the day of surgery. Patient instructed on: [x] NPO Status [x] Meds to Take [] Hold GLP-1 Receptor Agonist [x] Ride Home [x] No Jewelry/Contact Lenses/Nail Jamaican [] Prep/Lax/Clear Liquids [] Chlorhexidene DOS Patient Needs [] HCG [] Blood Sugar [] PT/INR [] T&S Do you have any metal allergies? [] Yes [x] No If yes, to what metals: Patient instructed on the pre-operative, intra-operative, and post-operative process? Yes Medication instructions reviewed with patient? Yes documented in this encounter [facility] 12-21-2024 Note SUBJECTIVE Reason for Visit: Deepa Sears is a 64 y.o. year old female patient being seen for follow-up visit status post coronary angiogram on 12/07/2024. HPI: Deepa Sears is a 64 y.o. year old female with no known cardiac history and denied hypertension, hyperlipidemia, or diabetes. Her medical history included hypothyroidism and a significant COVID-19 infection in April 2024, during which she experienced severe shortness of breath but did not require oxygen; she was managed at home with medications for two weeks. She was scheduled for rotator cuff repair and underwent routine preoperative testing. An abnormal EKG showed sinus rhythm with LVH, ST-T changes, left axis deviation, and possible old septal infarct. A treadmill nuclear stress test was ordered, with a normal EKG portion but nuclear imaging showed a partially reversible inferolateral and inferoseptal perfusion defect and moderately reduced EF of 35%. 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 She denied orthopnea or PND but endorsed evening lower extremity edema after prolonged standing. No claudication was reported. She denied snoring but endorsed mild daytime fatigue. She had a 20-year history of smoking 1-2 packs per day, quitting in 1997. She denied alcohol or illicit drug use, consumed two cups of coffee daily, occasional tea, and drank water throughout the day. Family history was notable for AL in her maternal grandmother (late 70s), a pacemaker in her maternal grandfather, breast cancer in her mother, and coronary artery disease with stent placement in her father. Coronary angiogram on 12/07/2024 showed a functionally significant stenosis (60-70%) at the origin of the modest-sized first diagonal branch, with an LAD iFR of 0.80. She was cleared to proceed with planned shoulder surgery while continuing aspirin 81 mg daily. Elective PCI of the LAD stenosis was planned approximately one month postoperatively via left radial approach. 12/21/2024 office visit: Patient was seen and evaluated in the office today. She reports longstanding lower extremity edema, present for over 10 years, which she states has been unresponsive to diuretics previously prescribed by her primary care provider. She notes the swelling improves with leg elevation. She otherwise denies chest pain, shortness of breath, palpitations, lightheadedness, or dizziness. 11/07/2024 office visit (Dr. Lane): Past Medical History: Diagnosis Date Abnormal ECG Past Surgical History: Procedure Laterality Date CARDIAC CATHETERIZATION HYSTERECTOMY Patient Active Problem List Diagnosis Abnormal EKG Abnormal stress test Class 1 obesity due to excess calories without serious comorbidity with body mass index (BMI) of 32.0 to 32.9 in adult Former smoker Abnormal echocardiogram Abnormal findings on diagnostic imaging of other specified body structures Acute bronchitis Arthralgia Clostridioides difficile infection Clostridium difficile colitis Diarrhea Eczema Edema Extrapyramidal and movement disorder, unspecified Hypertension Hypothyroidism Ischemic heart disease Low back pain Lumbar radiculopathy Headache Arthritis Overweight Pain in right knee Paresthesia of arm Right upper quadrant pain Urinary tract infectious disease family history includes Coronary artery disease in her mother; Heart attack in her maternal grandmother; Hypertension in her maternal grandmother; pacemaker in her maternal grandfather. Social History Tobacco Use Smoking status: Former Current packs/day: 0.00 Types: Cigarettes Quit date: 1997 Years since quittin. Smokeless tobacco: Never Substance Use Topics Alcohol use: Yes Comment: socially Drug use: Never OBJECTIVE Visit Vitals BP 140/72 (BP Location: Left arm, Patient Position: Sitting) Pulse 62 Ht 1.626 m (5' 4 ) Wt 87.5 kg (193 lb) SpO2 97% BMI 33.13 kg/m??? Smoking Status Former BSA 1.99 m??? Physical Exam Constitutional: General Appearance: well-developed, appears stated age. Level of Distress: no acute distress. Neck: Jugular Veins: normal jugular venous pressure. Lungs: Auscultation: no rales or rhonchi and normal breath sounds. Cardiovascular: Rate And Rhythm: regular Heart Sounds: normal S1 and s2; Systolic Murmur: not heard. Diastolic Murmur: not heard. Extremities: +2 edema LE Peripheral Pulses: Pulses: full and equal in all extremities except if noted. Abdomen: Inspection and Palpation: non distended or tender and soft. Musculoskeletal: Inspection: no joint tenderness or swelling. Neurologic: Gait: normal gait. Psychiatric: Mental Status: alert and normal affect. Skin: Inspection and Palpation: warm and dry. Allergies: Allergies Allergen Reactions Fluconazole Shortness of breath Penicillins Swelling Sulf (more content not included)... [facility] 12-07-2024 Note Patient: Deepa noel Procedure Information Date/Time: 12/07/24 0830 Procedure: Coronary angiography - PC APPROVED Location: [facility] / [facility] (Cath) Providers: Daxa Lane MD Clinical information reviewed: Allergies Meds Physical Exam Airway Mallampati: III Cardiovascular Rhythm: regular Rate: normal Dental Pulmonary Breath sounds clear to auscultation Abdominal Anesthesia Plan ASA 3 other (Moderate Sedation ) Anesthetic plan and risks discussed with patient. Use of blood products discussed with patient who consented to blood products. 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 [...] long. Regarding family history: Maternal grandmother had AL in her left 70s, maternal grandfather had [...] 8.8 Total bi (more content not included)... [facility] 03-02-2024 Miscellaneous Notes ----- Message from Dr. Lee Quiles DO sent at 03/02/2024 9:20 AM EDT [...] best of my ability. Will have Dr. Quiles prescribe Omeprazole BID and send information on Cool's Esophagus in the mail. Recall to be put in chart. documented in this encounter [facility] 03-02-2024 Telephone encounter Note ----- Message from Dr. Lee Quiles, sent at 03/02/2024 9:20 AM EDT ----- [...] can make an appointment to see me. [facility] 03-02-2024 Telephone encounter Note Spoke with patient regarding pathology results. Patient verbally understood with questions answered to the best of my ability. Will have Dr. Quiles prescribe Omeprazole BID and send information on Cool's Esophagus in the mail. Recall to be put in chart. [facility] 10-22-2023 History of Presen t illness Narrative [...] last colonoscopy was in [address] Quiles and was normal. Review of Systems Constitutional: [...] Laterality Date COLONOSCOPY N/A 10/11/2018 Performed by Lee Quiles DO at [facility] ESOPHAGOGASTRODUODENOSCOPY N/A 07/04/2021 Performed by [facility] Qu[facility] DO at [facility] [...] mouth daily., Disp: , Rfl: peg 3350-sod sulf,lfnv-cmo-syh 178.7-7.3-0.5 gram recon soln, Take 1 kit [...] patient/family/caregiver Referring and communicating with other health family day care provider Family history of malignant neoplasm of colon [Z80.0] BETTY SMITH [facility] [place] This note was created with the assistance of a speech recognition program. While intending to generate a timely document that accurately reflects the content of the visit, no guarantee can be provided that every grammatical or spelling mistake has been or will be identified or corrected. Thank you for your understanding. BETTY Smith 10/22/23 1550 documented in this encounter [facility] Evaluation note No assessment inform ation available [facility] Work Phone: Evaluation note Diagnosis Family history of malignant neoplasm of colon- Primary Family history of colon cancer Family history of malignant neoplasm of gastrointestinal tract documented in this encounter [facility] note* Diagnosis Postoperative pain- Primary Other acute postoperative pain documented in this encounter [facility] on filedocumented in this encounter [facility] SystemInstructionsNot on filedocumented in this encounter [facility] SystemInstructionsNot on filedocumented in this encounter [facility] SystemInstructionsNot on filedocumented in this encounter [facility]ructionsNot on filedocumented in this encounter [facility] SystemReason for visit Narrative* Auth/Cert (Routine) Specialty Diagnoses / Procedures Referred By Susannah t Referred To Contact Diagnoses Complete tear of right rotator cuff, unspecified whether traumatic Complete tear of right rotator cuff, unspecified whether traumatic [M75.121] Procedures [place] SURGICAL ARTHROSCOPY SHOULDER W/ROTATOR CUFF RPR RIGHT SHOULDER ARTHROSCOPIC ROTATOR CUFF REPAIR Raymond Davila MD [address] [place] [address] Phone: tel: fax: [facility] [address] [place] [address] Referral ID Status Reason Start Date Expiration Date Visits Re quested Visits Authorized [id number] 1 1 [facility] [employer] [facility] Summary Purpose Family History No Family History Records FoundNo Family History Records FoundNo Family History Records FoundNo Family History Records FoundNo Family History Records FoundNo Family History Records FoundNo Family History Records Found Advance Directives No Advanced Directives Records Found Date Activated Date Inactivated Comments 12/30/2024 2:44 PM Additional Source Comments INFORMATION SOURCE (unrecogn ized section and content) DATE CREATED AUTHOR 12/28/2022 [facility] DATE CREATED AUTHOR AUTHOR'S ORGANIZ ATION 02/20/2024 [facility] DATE CREATED AUTHOR AUTHOR'S ORGANIZ ATION 02/22/2024 [facility] DATE CREATED AUTHOR AUTHOR'S ORGANIZ ATION 12/24/2024 [facility] DATE CREATED AUTHOR AUTHOR'S ORGANIZ ATION 12/31/2024 [facility] DATE CREATED AUTHOR AUTHOR'S ORGANIZ ATION 05/08/2025 [facility] DATE CREATED AUTHOR AUTHOR'S ORGANIZ ATION 05/15/2025 [facility] Care Teams (unrecognized sec tion and content) Team Status: Inactive Member Role Status Dates Lee Quiles DO Attending Provider Active Start: February 19, 2024 End: February 19, 2024 Industrial Designer Relationship Specialty Start Date End Date Real Kimball MD [address] [place] [id number] PCP - General Family Medicine 09/22/18 Industrial Designer Relationship Specialty Start Date End Date Real Kimball MD [address] [place] [id number] PCP - General Family Medicine 09/22/18 Industrial Designer Relationship Specialty Start Date End Date Real Kimball MD [address] [place] [address] PCP - General Family Medicine 09/22/18 Industrial Designer Relationship Specialty Start Date End Date Real Kimball MD [address] [place] [address] PCP - General Family Medicine 09/22/18 Industrial Designer Relationship Specialty Start Date End Date Real Kimball MD PCP - General Family Medicine 09/22/18 Industrial Designer Relationship Specialty Start Date End Date Real Kimball MD [address] [place] [id number] PCP - General Family Medicine 12/27/24 Goals (unrecognized section and content) Goals may [...] Reason Comments Colon Cancer Screening 5 year recallsam history of colon cancer Reason Comments Med Refill Ordered Prescriptions (unrec ognized section and content) Prescription Sig Dispense Quantity Refills Last Filled Start Date End Date oxyCODONE-acetamin ophen (PERCOCET) 5-325 MG per tabletIndications: Postoperative pain Take 1-2 tablets by mouth every 4-6 hours as needed for Pain for up to 7 days. Intended supply: 7 days. Take lowest dose possible to manage pain Max Daily Amount: 12 tablets 30 tablet 12/30/2024 Scheduled Active and Recently Administ ered Medications (unrecognized section and content) Medication Order 12/28/2024 12/29/2024 12/30/2024 vancomycin (VANCOCIN) 1,000 mg in sodium chloride 0.9 % 250 mL IVPB ([id number]) (COMPLETED) 1,000 mg (11.6 mg/kg), IntraVENous, at 250 mL/hr, Administer over 60 Minutes, CEMENT RUBBER TO O.R., On Thu12/30/24 at 0930, For 1 dose, Use 20mm (Blue) [id number] Adapter Preparation instructions: Attach medication vial to one 20mm (Blue) [id number] adapter. Aldair fluid bag with adapter, mix, and administer per order. 1020 (New Bag - Prov ider: Roxane Griffin, RN)1120 (Stopped - Provider: Roxane Griffin RN) Continuous Medication Order 12/28/2024 12/29/2024 12/30/2024 lactated ringers infusion IntraVENous, at 100 mL/hr, CONTINUOUS, Starting on Thu12/30/24 at 0930, Pre-op (day of surgery) 0946 (New Bag - Prov ider: Pola Kasper RN)1319 (NoRateChange - Provider: Casey Daniels APRN - SEAM SEWER)1415 (New Bag - Provider: Casey Daniels APRN - SEAM SEWER)1427 (Anesthesia Volume Adjustment - Provider: Casey Daniels APRN - CHUCK) PRN Medication Order 12/28/2024 12/29/2024 12/30/2024 sod chloride IRR soln 0.9 % 3,000 mL with EPINEPHrine 1 mg (CANCELED) PRN, Starting on Thu12/30/24 at 1358, Intra-op 1358 (Given - Provid er: Raymond Davila MD) sod chloride IRR soln 0.9 % irrigation (COMPLETED) CONTINUOUS PRN, Starting on Thu12/30/24 at 1357, Intra-op 1357 (New Bag - Prov ider: Raymond Davila MD - Comment: Given up to sterile field) FOR RECORDS PERTAINING TO PATIENTS WHO ARE [...] BE BASED ON THE PRIMARY CLINICAL RECORDS. [employer]ra [employer] [facility]. provides no warranty or guarantee of the accuracy or completeness of information in this document.
== END 2025-05-23 08:19 | disposition home or self-care (01) ==
LOC: CARD 08:19
PROVIDERS: PCP Family Medicine; Visit Provider Internal Medicine Cardiovascular Disease
DX: I50.42 Chronic combined systolic (congestive) and diastolic (congestive) heart failure (principal)
CPT/HCPCS: 93306; 93356

== ENCOUNTER 2025-06-08 12:02 | Outpatient (OUT) | payer OTHER, SELFPAY ==
--- OUTSIDE RECORDS SUMMARY | 2024-06-27 09:00 | XMS_ITS | Continuity of Care Document ---
Author Organization [facility] Address [address] [place] [address] [place] [address] Phone Care Team Providers Care Saw Man Name Role Phone Read Shey HEALY FACOG Unavailable Unavail able Allergies, Adverse Reactions, Alerts Substance Reaction Status Criticality trimethoprim Swelling Active No Information sulfamethoxazole Swelling Active No Informat ion CEPHALEXIN MONOHYDRATE yeast infection Active No Information clarithromycin Diarrhea Active No Informatio n PENICILLIN Active No Information Medications Medication Instructions Dosage Effective Dates (start - stop) Status Comments triamcinolone acetonide 0.1 % topical cream apply pea size amount externally q HS - Active turmeric 400 mg capsule - Active Symbicort 160 mcg-4.5 mcg/actuation HFA aerosol inhaler inhale 2 puff by inhalation route 2 times every day in the morning and evening 2.00 puff - Active ProAir RespiClick 90 mcg/actuation breath activated inhale 1 puff by inhalation route every 4 - 6 hours as needed 90 MCG - Active omeprazole 20 mg capsule,delayed release take 1 capsule by oral route every day 30 minutes to 1 hour before a meal 20 MG - Active multivitamin tablet - Active montelukast 10 mg tablet take 1 tablet by oral route every day in the evening 10 MG - Active losartan 50 mg-hydrochlorothiaz yony 12.5 mg tablet take 1 tablet by oral route every day 1.00 tablet - Active etodolac 300 mg capsule take 1 capsule by oral route 2 times every day with food 300 MG - Active Claritin 10 mg tablet take 1 tablet by oral route every day 10 MG - Active Calcium 600 mg calcium (1,500 mg) tablet - Active atorvastatin 10 mg tablet take 1 tablet by oral route every day 10 MG - Active triamcinolone acetonide 0.1 % topical cream apply pea size amount externally q HS - No Longer Active Results Test Name Date and Time Measure Units Reference Range Abnormal Flag Status Comments Panel Description: HPV High Risk - No Genotype Final SPECIMEN: source: Cerv COMMENT ORDERING PROVIDER: SHEY MONDRAGON Final COMMENT PATIENT TYPE: OUTPATIENT Final Order placed by AP_HPV_ORDER Rule from [id number] HPV High Risk mRNA 07:38: 11 See comment Not Detected N Final HPV-- -NOT DETECTEDThe APTIMA HPV Assay is an in vitro nucleic acid amplification test for the qualitativedetection of E6/E7 viral messenger RNA (mRNA) from 14 high-risk types of humanpapillomavirus. The high-risk HPV types detected by the assay include: 16, 18, 31, 33,35, 39, 45, 51, 52, 56, 58, 59, 66, and 68. This test has been performed using tritrue. HPV High Risk mRNA 07:38: 11 Not Detected Not Detected N Final Panel Description: Pathology [employer] Cytology Exam Final Document Pathology [employer] Cytology Exam 1 Panel Description: Pathology [employer] Cytology Exam Final SPECIMEN: source: AP Specimen COMMENT ORDERING PROVIDER: SHEY MONDRAGON Final COMMENT PATIENT TYPE: OUTPATIENT Final [facility] [employer] Cytology Report 17:31: 12 Image not supported for Final [facility] [employer] Cytology Report 17:31: 12 Final [facility] [employer] Cytology Report 17:31: 12 this output type Edison WROSINA Wood Final [facility] [employer] Cytology Report 17:31: 12 Eduardo [id number] Final [facility] [employer] Cytology Report 17:31: 12 (419) Final [facility] [employer] Cytology Report 17:31: 12 [phone] Final [facility] [employer] Cytology Report 17:31: 12 (419) Final [facility] [employer] Cytology Report 17:31: 12 [phone] (Fax) Final [facility] [employer] Cytology Report 17:31: 12 Final [facility] [employer] Cytology Report 17:31: 12 DEEPA Bell Female Female Final [facility] [employer] Cytology Report 17:31: 12 t: Sex: Sex: Final [facility] [employer] Cytology Report 17:31: 12 /Age 11 1960 63 years Admit 06/27/2024 Final [facility] [employer] Cytology Report 17:31: 12 : Date: Final [facility] [employer] Cytology Report 17:31: 12 Locatio [facility] Final [facility] [employer] Cytology Report 17:31: 12 n: Final [facility] [employer] Cytology Report 17:31: [id number] SHEY MONDRAGON MD Final [facility] [employer] Cytology Report 17:31: 12 #: : Final [facility] [employer] Cytology Report 17:31: 12 PT Outpatient Copy Final [facility] [employer] Cytology Report 17:31: 12 Type: Pathology Reports Final [facility] [employer] Cytology Report 17:31: 12 Final [facility] [employer] Cytology Report 17:31: 12 Final [facility] [employer] Cytology Report 17:31: 12 Collected Date/Time: 06/27/2024 13:57 EDT Final [facility] [employer] Cytology Report 17:31: 12 Pathologist: Received Date/Time: 06/27/2024 17:19 EDT Final [facility] [employer] Cytology Report 17:31: 12 Ordering Physician: SHEY MONDRAGON MD Final [facility] [employer] Cytology Report 17:31: 12 Final [facility] [employer] Cytology Report 17:31: 12 Final [facility] [employer] Cytology Report 17:31: 12 WC [employer] Cytology Report Final [facility] [employer] Cytology Report 17:31: 12 SPECIMEN: Final [facility] [employer] Cytology Report 17:31: 12 Thin Prep Pap Smear, with HPV, cervical/endocer vical. Final [facility] [employer] Cytology Report 17:31: 12 Final [facility] [employer] Cytology Report 17:31: 12 Final [facility] [employer] Cytology Report 17:31: 12 DIAGNOSIS: Final [facility] [employer] Cytology Report 17:31: 12 NEGATIVE FOR INTRAEPITHELIAL LESION OR MALIGNANCY. Final [facility] [employer] Cytology Report 17:31: 12 Atrophic change Present. 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 :RADHA ALLISON Final [facility] [employer] Cytology Report 17:31: 12 06/28/2024 17:31 Final [facility] [employer] Cytology Report 17:31: 12 Completed by: RADHA ALLISON Final [facility] [employer] Cytology Report 17:31: 12 (Electronically signed by) Final [facility] [employer] Cytology Report 17:31: 12 06/28/2024 17:31 Final [facility] [employer] Cytology Report 17:31: 12 Final [facility] [employer] Cytology Report 17:31: 12 Final [facility] [employer] Cytology Report 17:31: 12 CLINICAL INFORMATION: Final [facility] [employer] Cytology Report 17:31: 12 Z12.4 Encounter for screening for malignant neoplasm of cervix. Final [facility] [employer] Cytology Report 17:31: 12 Z11.51 Encounter for screening for human papillomavirus (HPV). Final [facility] [employer] Cytology Report 17:31: 12 HPV ordered regardless of result. Final [facility] [employer] Cytology Report 17:31: 12 Drugs: none. Final [facility] [employer] Cytology Report 17:31: 12 Postmenopausal. Final [facility] [employer] Cytology Report 17:31: 12 Normal. Final [facility] [employer] Cytology Report 17:31: 12 Final [facility] [employer] Cytology Report 17:31: 12 SPECIMEN ADEQUACY: Final [facility] [employer] Cytology Report 17:31: 12 Satisfactory for Evaluation. Final [facility] [employer] Cytology Report 17:31: 12 Final [facility] [employer] Cytology Report 17:31: 12 NOTE: Final [facility] [employer] Cytology Report 17:31: 12 Gynecologic cytology is a screening test which is subject to false positive and false negative Final [facility] [employer] Cytology Report 17:31: 12 results supported by data published in the medical literature. The test is more reliable when a Final [facility] [employer] Cytology Report 17:31: 12 Final [facility] [employer] Cytology Report 17:31: 12 satisfactory sample is obtained on a regular repetitive basis. Therefore, these results must be Final [facility] [employer] Cytology Report 17:31: 12 in context of historic and current clinical information. Final [facility] [employer] Cytology Report 17:31: 12 Final [facility] [employer] Cytology Report 17:31: 12 Final [facility] [employer] Cytology Report 17:31: 12 Final [facility] [employer] Cytology Report 17:31: 12 Final [facility] [employer] Cytology Report 17:31: 12 ____ Final [facility] [employer] Cytology Report 17:31: 12 Report Request [id number] Print 06/28/2024 17:31 EDT Final [facility] [employer] Cytology Report 17:31: 12 ID: Date: Final [facility] [employer] Cytology Report 17:31: 12 Final [facility] [employer] Cytology Report 17:31: 12 Laboratory reference ranges are based on age Final NOTE: This patient has pending results not included in this document. Advance Directives Directive Yes / No Effective Date File Name No Information Encounters Encounter Description Practice Location Reason(s) For Visit Diagnoses Date Provider Providers Copied on Encounter [facility], [address], [place], [place], [id number], [place] tel:[phone] [facility] (chief complaint) Encounter for gynecological examination (general) (routine) without abnormal findings 4 Awa Kat . [address], [address], [place], [place], [id number] , [place]. tel: [phone] Referring Provider: Shey Mondragon MD, FACOG, [address], [place], [address] . tel:[phone] [facility], [address], [place], [place], [id number], tel:[phone] [facility] No Information 4 Awa Kat . [address], [place], [place], [id number] , [place]. tel: [phone] Family History Family Member Type Diagnosis Age At Onset Brother Problem Diabetes mellitus Mother Problem alive Father Problem Hypertension Mother Problem Cardiovascular disease Father Problem alive Father Problem Cardiovascular disease Payers Payer name Insurance type Covered libertarian ID Dino tinoco(s) Preeti [id number] Social History Type Description Quantity Date Captured Comments Alcohol Use Details 1 drink weekly Caffeine Use Details coffee 1 cup per day Tobacco Use Status Current non-smoker Smoking Status Never smoker Non-Smoking Tobacco Use Details : No Details Available : No Details Available Sex Female Vital Signs Date / Time: Height Weight BMI Pulse Rate Blood Pressure Temperature Respiratory Rate Body Surface Area Head Circumference Head Circ. Percentile Wt./Roger. Percentile BMI percentile Pulse Ox Inhaled Ox 1:14 PM 66.00 in 77.201 kg (170.20 lbs) 27.4 7 kg/m eter (2) 120/70 mm[Hg] Chief Complaint And Reason For Visit From encounter dated '06/27/2024 13:00'. annual (chief complaint). Description: 63yo G 4_P 3 (LTCS followed by JOSE RAMONx2) presents for annual. 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 Has a clinical dx of Lichen Sclerosis. Usingtopical steroids and seems to be well controlled. Formally retired now. 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 Collected todayand will plan at 65yo. Because of the Lichen Sclerosis recommended she continue to come yearly and consider a pap every other. Last Mammogram 08/18/22 negative, birad-1; order givenLast Dexa Last Colonoscopy 06/05/14Bladder occasBowelVaginalWalks for exercise but not consistentlyLICHEN SCLEROSIS - sent in script for Triamcinolone 0.1% Ointment to apply pea sized amount around clitoris, labia minora and perineum at night. She remember about 2x/week. Order for mammogram givenFormally retired now working part-time ar [employer]. Pap done. Will check again at 65yo. Told her will call if an issue. Has remote H/o [facility] in the 90s but nml since2. Slip given for MG3. May call for Clobetasole if sxs increase4. On exam labia minora is blunted and some minor fusion of the clitoral garcia. Only lichenoid area was on the perineum5. Vag mucosa atrophic with some bluish areas posterior c/w venous congestion Reason For Referral Reason For Referral No Information Plan Of Treatment Date Type Action Status Appointment Deepa Velazquez BOOKED History Of Present Illness Encounter Date Complaint History Of Prese nt Illness annual 63yo G 4_P 3 (LT CS followed by GETACHEWACx2) presents for annual. 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 Has a clinical dx of Lichen Sclerosis. Using topical steroids and seems to be well controlled. Formally retired now. 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 Collected today and will plan at 65yo. Because of the Lichen Sclerosis recommended she continue to come yearly and consider a pap every other. Last Mammogram 08/18/22 negative, birad-1; order givenLast Dexa Last Colonoscopy 06/05/14Bladder occasBowelVaginalWalks for exercise but not consistentlyLICHEN SCLEROSIS - sent in script for Triamcinolone 0.1% Ointment to apply pea sized amount around clitoris, labia minora and perineum at night. She remember about 2x/week. Order for mammogram givenFormally retired now working part-time [employer]. Pap done. Will check again at 65yo. Told her will call if an issue. Has remote H/o [facility] in the 90s but nml since2. Slip given for MG3. May call for Clobetasole if sxs increase4. On exam labia minora is blunted and some minor fusion of the clitoral garcia. Only lichenoid area was on the perineum5. Vag mucosa atrophic with some bluish areas posterior c/w venous congestion Functional Status Date Functional Assessmen t No Information Instructions Date Instruction Additional Infor mation No Information Assessments Type Assessment Date assessment Encounter for gyneco logical examination (general) (routine) without abnormal findings Mental Status Date Cognitive Assessment Orientation - [place] ed to time, place, person, situation. Patient Care Teams Name Effective Dates (start - stop) Status Members No Information
--- OUTSIDE RECORDS SUMMARY | 2025-05-24 06:45 | XMS_ITS ---
Author Organization [facility] Address [address] [place] [address] Care Team Providers Care Retail Planner Name Role Phone CristinoTano velazquez Primary Care Provider UnavailRaymond Woodward Unavailable [phone] Carissa Izquierdo Unavailable [phone] Allergies Allergen (clinical drug ingredient) Drug/Non Drug Allergy documented on EMR Reaction Allergy Type Onset Date Status PENICILLIN (uncoded) Unknown Allergy Active SULFA (uncoded) Unknown Allergy Acti ve Reason For Referral Reason JOSE........Obtain au thorization for right shoulder MRI Diagnosis 1 Complete tear of rig ht rotator cuff, unspecified whether traumatic (M75.121) Referral Organization [facility] Referring Provider First Name Raymond Referring Provider Last Name Cassy Referring Provider Speciality Orthopedic Surgery Referred Organization [facility] Referred Address [place], [place], Procedure 1 MRI Joint Upper Ext w/o Dye ([address]) General Notes Corrie Sim 025 01:46:33 PM >PER [facility], NO AUTH REQUIRED MA NOTIFIED REF FAXED TO Zeyad SIERRA Monica 05/25/2025 03:14:02 PM >faxed to [facility] Referral Priority Routine REASON FOR VISIT S/P RIGHT RCR Medications Medication SIG (Take, Route, Fr equency, Duration) Notes Start Date End Date Status levothyroxine Active leflunomide Active liothyronine Active valsartan Active Jardiance Active Metoprolol Succinate ER Active atorvastatin Active aspirin Active pantoprazole Active clopidogrel Active Social History Tobacco Use: Social History Observation Description Date Details (start date - stop date) Never Smoker NA - NA AUDIT-C (Standard) Question Answer Notes Did you have a drink contain ing alcohol in the past year? Yes How often did you have a dri nk containing alcohol in the past year? Monthly or less (1 point) How many drinks did you have on a typical day when you were drinking in the past year? 1 or 2 drinks (0 point) How often did you have six o r more drinks on one occasion in the past year? Never (0 point) Points 1 Interpretation Negative Tobacco Control (Standard) Question Answer Notes Tobacco use: Nonsmoker Encounters Encounter Location Date Provider Diagnosis [facility] [address] [place] [address] 05/24/2025 Carissa Schwabcomb Complete tear of rig ht rotator cuff, unspecified whether traumatic M75.121 Assessments Encounter Date Diagnosis (ICD Code) Assessment Notes Treatment Notes Treatment Clinical Notes Section Notes 05/24/2025 Complete tear of right rotator cuff, unspecified whether traumatic (ICD-10 - M75.121) 05/24/2025 Other I have ordered an MRI of the right shoulder to evaluate the rotator cuff repair to be sure it is still intact given her failure to improve with persistent pain, popping. And weakness.. Will follow-up after this is complete. Plan has been agreed upon by my supervising physician, []MD. Plan Of Treatment Treatment Notes Assessment Notes Other I have ordered an MRI of the right shoulder to evaluate the rotator cuff repair to be sure it is still intact given her failure to improve with persistent pain, popping. And weakness.. Will follow-up after this is complete. Plan has been agreed upon by my supervising physician, []MD. Pending Test Test Name Order Date MRI : Shoulder W/O Contrast Right - 7322 1 05/24/2025 Referrals Referral Date Details 05/24/2025 05/24/2025, JOSE..... ...Obtain authorization for right shoulder MRI, ROSINA Sierra Next Appt Details Follow Up: After MRI, Reason : Provider Name:Raymond Saravia, 06/19/2025 01:30:00 PM, [address], [place], [address], Progress Notes * DEEPA ZAYAS MDOB:1960 (64 yo F)Acc No.[id number]:05/24/2025 Patient: DEEPA VILLASEÑOR Provider: Liana Izquierdo CNP :1960 A ge:64 Y S ex:Female Date:05/24/2025 Address:[address] [place] [address], [id number] Pcp:Tano Kimball Subjective: * Chief Complaints: * 1 . S/P RIGHT RCR. * HPI: G eneral Info per Patient Report: Patient follows up today for recheck of her right rotator cuff repair approximately 5 months ago. She still has pain and difficulty trying to lift up her arm and if she tries to go past 90 degrees she gets a painful pop that is even palpable. She has been in therapy now for 40 sessions but has not made any improvement. * Medical History: H ypothyroidism, Drug Allergies. * Surgical History: A rthroscopic right shoulder with RCR 12/30/2024. * Family History: N o Family History documented.. * Social History: W hat is your place of residence? W here do you live? P rivate home. A ALTAGRACIA-C (Standard) D id you have a drink containing alcohol in the past year? Y es, H ow often did you have a drink containing alcohol in the past year? M onthly or less (1 point), H ow many drinks did you have on a typical day when you were drinking in the past year? 1 or 2 drinks (0 point), H ow often did you have six or more drinks on one occasion in the past year? N ever (0 point), P oints 1 , I nterpretation N egative. T obacco Control (Standard)?Tobacco use: N onsmoker. * Medications: T aking aspirin , Taking Metoprolol Succinate ER , Taking atorvastatin , Taking pantoprazole , Taking clopidogrel , Taking valsartan , Taking Jardiance , Taking leflunomide , Taking liothyronine , Taking levothyroxine * Allergies: S ULFA, PENICILLIN. Objective: * Vitals: * Examination: G eneral examination: T he patient is a age-appropriate [], alert and oriented x3 and in no acute distress. Well-dressed and well-groomed. Stands with normal body position and in a calm mood. On examination today there is a palpable popping sensation to the subacromial space with forward flexion and this is painful. She has active forward flexion to 90 degrees but passively has near full. She has weakness with rotator cuff testing. Intact sensation light touch. specific exam: x-ray imaging studies: [] specific exam: x-ray imaging studies: Assement:. Assessment: * Assessment: 1. C omplete tear of right rotator cuff, unspecified whether traumatic - M75.121 (Primary) Plan: * Treatment: 2. O thers Notes: I have ordered an MRI of the right shoulder to evaluate the rotator cuff repair to be sure it is still intact given her failure to improve with persistent pain, popping. And weakness.. Will follow-up after this is complete. Plan has been agreed upon by my supervising physician, []MD. * Follow Up: A fter MRI Forms: * Images: * Electronic signature of Carissa Izquierdo CNP on 06/08/2025 at 12:05 PM EDT Sign off status: Pending * Provider: Liana Izquierdo CNP Date: 0 05/24/2025 Generated for Valery gan/Olivia/Shashi on: 12:05 PM EDT History and Physical Notes * HPI (History of Present Illness) Category Sub-Category Detail Notes Category Not es General Info per Patient Report Patient follows up cami rueda for recheck of her right rotator cuff repair approximately 5 months ago. She still has pain and difficulty trying to lift up her arm and if she tries to go past 90 degrees she gets a painful pop that is even palpable. She has been in therapy now for 40 sessions but has not made any improvement. Examination Category Sub-Category Detail Notes Category Not es General examination The patient is a age-appropriate [], alert and oriented x3 and in no acute distress. Well-dressed and well-groomed. Stands with normal body position and in a calm mood. On examination today there is a palpable popping sensation to the subacromial space with forward flexion and this is painful. She has active forward flexion to 90 degrees but passively has near full. She has weakness with rotator cuff testing. Intact sensation light touch. specific exam: x-ray imaging studies: [] specific exam: x-ray imaging studies: Assement: Consultation Request Notes Referral Date Referring Provider Referred Provider Not rosita 05/24/2025 Raymond Madera NAR........ Obtain authorization for right shoulder MRI
--- OUTSIDE RECORDS SUMMARY | 2025-06-08 12:04 | XMS_ITS | Encounter Summary ---
Author Organization [email or web address] Address [facility] [id number] [address] [place] [address] Care Team Providers Care Baggage Handling Supervisor Name Role Phone Tano Kimball MD Primary Care Provider [phone] Encounter Details Date Type Department Care Team (Late Contact Info) Description 05/26/2022 Orders Only [facility] [address] [place] [id number] Lacy Perry CMA Assessment of effects of psychotropic drug Social History Tobacco Use Types Packs/Day Years Used Date Smoking Tobacco: Former Cigarettes Q uit: 08/28/1998 Smokeless Tobacco: Never Alcohol Use Standard Drinks/Week Comments Yes 0 (1 standard drink = 0.6 oz pur e alcohol) social AUDIT-C Answer Date Recorded Q1: How often do you have a drink containing alc ohol? Monthly or less 12/30/2021 Q2: How many drinks containi ng alcohol do you have on a typical day when you are drinking? 5 or 6 12/30/2021 Q3: How often do you have si x or more drinks on one occasion? Less than monthly 12/30/2021 Childcare Answer Date Recorded Childcare Unknown 02/17/2019 Employment Answer Date Recorded Employment Unknown 02/17/2019 Purpose - Life Answer Date Recorded Purpose and direction in life Unknown Comments No Sex and Gender Information Value Date Recorded Sex Assigned at Not on file Legal Sex Female 11:05 AM EST Gender Identity Not on file Sexual Orientation Not on file documented as of this encounter Plan of Treatment Upcoming Encounters Date Type Department Care Team (Late Contact Info) Description 06/13/2025 1:15 PM EDT [facility] [address] [place] [address] Arrived documented as of this encounter Procedures Procedure Name Priority Date/Time Associated Diagnosis Comments THYROID PROFILE INCLUDES TSH FT4 Routine 05/13/2022 Assessment of effects of psychotropic drug documented in this encounter Results * Thyroid profile includes TSH FT4 (05/13/2022) 05/13/2022 us Quin Mayo [employer] INS[employer]ANCE UNDERWRITER-[employer] LAB BLOOD ORDERABLES Fin al Result [facility] documented in this encounter Visit Diagnoses Diagnosis Assessment of effects of psychotropic drug documented in this encounter Care Teams Baggage Handling Supervisor Relationship Specialty Start Date End Date Tano Kimball MD PCP - General Family Medicine 09/22/18 documented as of this encounter
--- OUTSIDE RECORDS SUMMARY | 2025-06-08 12:04 | XMS_ITS | Encounter Summary ---
Author Organization [facility] Address [facility] [id number] [address] [place] [address] Care Team Providers Care Renal Dialysis Technician Name Role Phone Tano Kimball MD Primary Care Provider [phone] Reason for Visit * Reason Comments Med Refill Encounter Details Date Type Department Care Team ([facility] st Contact Info) Description 06/10/2022 Refill [facility] [address] [place] [address] Quin Mayo, [facility] [address] [place] [address] Social History Tobacco Use Types Packs/Day Years [...] on file Sexual Orientation Not on file COVID-19 Exposure Response Date Recorded In the last month, have you been in contact with someone who was confirmed or suspected to have Coronavirus / COVID-19? No / Unsure 06/09/2022 3:53 PM EDT documented as of this encounter Miscellaneous Notes * Telephone Encounter - KATELYN Ramirez - 06/10/2022 9:43 AM EDT Filled by SAMINA Santos yesterday documented in this encounter Plan of Treatment Upcoming Encounters Date Type Department Care Team (Late st Contact Info) Description 06/13/2025 1:15 PM EDT [facility] [address] [place] [phone] Arrived documented as of this encounter Visit Diagnoses Not on filedocumented in this encounter Care Teams Renal Dialysis Technician Relationship Specialty Start Date End Date Tano Kimball MD PCP - General Family Medicine 09/22/18 documented as of this encounter
--- OUTSIDE RECORDS SUMMARY | 2025-06-08 12:05 | XMS_ITS | Encounter Summary ---
Author Organization [facility] Address [facility] [id number] [address] [place] [address] Care Team Providers Care Sales And Merchandising Representative Name Role Phone Tano Kimball MD Primary Care Provider [phone] Encounter Details Date Type Department Care Team (Late st Contact Info) Description 03/13/2022 Telephone [facility] [address] [place] [phone] Thelma Davies Social History Tobacco Use Types Packs/Day Years [...] have Coronavirus / COVID-19? No / Unsure 03/03/2022 3:34 PM EDT documented as of this encounter Miscellaneous Notes * Telephone Encounter - Thelmayumiko Davies - 03/13/2022 8:56 AM EDT Patient was given a prescription for Paroxetine at her last visit. She took 1/2 pill and experienced nausea, vomiting & diarrhea. She was too scared to try taking anymore. She was sick the wholeiday weekend from it . Is there anything else we can send in for her (Luciana Oneill in [place]) or any other suggestions. Please advise. Thank you. * Telephone Encounter - KATELYN Burden - 03/13/2022 8:56 AM EDT Have her make an appointment with who ever prescribed the medication. * Telephone Encounter - Winnie Juárez LPN - 03/13/2022 8:56 AM EDT Called Pt back. Pt states RA just filled the Paxil 7.5mg and she picked it up. Pt states she is going to look for something OTC. If she has no relief she will make an appt. documented in this encounter Plan of Treatment Upcoming Encounters Date Type Department Care Team (Late st Contact Info) Description 06/13/2025 1:15 PM EDT [facility]ment [facility] [address] [place] [phone] Arrived documented as of this encounter Visit Diagnoses Not on filedocumented in this encounter Care Teams Sales And Merchandising Representative Relationship Specialty Start Date End Date Tano Kimball MD PCP - General Family Medicine 09/22/18 documented as of this encounter
--- OUTSIDE RECORDS SUMMARY | 2025-06-08 12:05 | XMS_ITS | Encounter Summary ---
Author Organization [facility] Address [address] [place] [address] Care Team Providers Care Stove Fitter Name Role Phone Tano Kimball MD Primary Care Provider Encounter Details Date Type Department Care Team (Late st Contact Info) Description 05/16/2025 Results [facility] [address] [place] [phone] Nilo Valenzuela MD [address] [facility] [id number] [place] [address] Basic metabolic panel Social History Tobacco Use Types Packs/Day Years Used Date Smoking Tobacco: Former Cigarettes Q uit: 1998 Smokeless Tobacco: Never Alcohol Use Standard Drinks/Week Comments Yes 0 (1 standard drink = 0.6 oz pur e alcohol) socially PHQ-2 Answer Date Recorded Patient Health Questionnaire-2 Score 1 03/11/2024 Comments No Sex and Gender Information Value Date Recorded Sex Assigned at Female 12/07/2024 7:16 AM EDT Legal Sex Female 12:21 AM EDT Gender Identity Female 12/07/2024 7:16 AM EDT Sexual Orientation Heterosexual or Straight 10/2024 7:16 AM EDT documented as of this encounter Plan of Treatment Upcoming Encounters Date Type Department Care Team (Late st Contact Info) Description 07/05/2025 2:20 PM EDT Office Visit [facility] [address] [place] [address] Nilo Valenzuela MD [address] [facility] [id number] [place] [address] documented as of this encounter Visit Diagnoses Not on filedocumented in this encounter Care Teams Stove Fitter Relationship Specialty Start Date End Date Tano Kimball MD [address] [facility] [address] [address] PCP - General 03/11/24 documented as of this encounter
--- OUTSIDE RECORDS SUMMARY | 2025-06-08 12:05 | XMS_ITS | Clinical Summary ---
Author Organization [employer] Address [facility] [id number] [address] [place] [address] Care Team Providers Care Test Cell Technician Name Role Phone Tano Kimball MD Primary Care Provider [phone] Allergies Active Allergy Reactions Criticality Noted Date Comments Penicillins Swelling High 07/04/2021 Sulfa (Sulfonamide Antibiotics) 10/08 Sulfabenzamide Swelling High 10/11/2018 Lips swell Medications liothyronine (CYTOMEL) 5 MCG tablet Take 1 tablet (5 mcg total) by mouth in the morning. 08/27/2018 Active levothyroxine (SYNTHROID, LEVOTHROID) 150 MCG tablet Take 1 tablet (150 mcg total) by mouth in the morning. 07/14/2018 Active leflunomide (ARAVA) 20 mg tablet Take 1 tablet (20 mg total) by mouth in the morning. 08/11/2018 Active multivitamin (MULTI-DAY ORAL) Take by mouth. Active loratadine (CLARITIN) 10 mg tablet Take 1 tablet (10 mg total) by mouth in the morning. Active acidophilus-pec tin, citrus 25 million cell -100 mg tablet Take 1 tablet by mouth daily with breakfast. Active TURMERIC ORAL Take by mouth daily. Active omeprazole (PriLOSEC) 40 mg capsule TAKE 1 CAPSULE (40 MG TOTAL) BY MOUTH IN THE MORNING AND AT BEDTIME. 60 capsule 1 07/13/2024 Active Active Problems No known active problems Encounters Date Type Department Care Team Description 06/07/2025 Travel 05/09/2025 Travel 04/07/2025 Travel from Last 3 Months Family History Medical History Relation Name Comments Diabetes Brother Epilepsy Brother No Known Problems Father Breast cancer Mother COPD Mother Colon cancer Mother Heart disease Mother Mac Breast Cancer Neg Hx Relation Name Status Comments Brother Alive Father Alive Mother Sister Alive Son 1 Alive Son 2 Alive Son 3 Alive Social History Tobacco Use Types Packs/Day Years Used Date Smoking Tobacco: Former Cigarettes 1 22 1 10/29/1975 - 08/28/1998 Smokeless Tobacco: Never Tobacco Cessation:Counseling Given: Not Answered Alcohol Use Standard Drinks/Week Comments Yes 0 [...] on file Sexual Orientation Not on file Last Filed Vital Signs Vital Sign Reading Time Taken Comments Blood Pressure 157/91 11/05/2023 11:11 AM EST Pulse 77 11/05/2023 11:11 AM EST Temperature 36.7 C (98 F) 11/05/2023 9:20 AM EST Respiratory Rate 19 11/05/2023 11:11 AM EST Oxygen Saturation 98% 11/05/2023 11:11 AM EST Inhaled Oxygen Concentration - - Weight 86.2 kg (190 lb) 12/20/2024 12:29 PM EDT Height 162.6 cm (5' 4 ) 12/20/2024 12:29 PM EDT Body Mass Index 32.61 12/20/2024 12:29 PM EDT Plan of Treatment Upcoming Encounters Date Type Department Care Team (Late st Contact Info) Description 06/13/2025 1:15 PM EDT Appointment [facility] [place] [facility] [address] [place] [address] Arrived Health Maintenance Due Date Last Done Comments Depression Screening 1972 Adult BMI Follow Up Plan 1978 DTaP,Tdap and Td Vaccines (1 - Tdap) 1979 Zoster (Shingles) Vaccine (1 of 2) 2010 Tobacco Screening 11/04/2024 11/05/2023 Influenza Vaccine 05/08/2025 06/17/2024, , 06/14/2022, Additional history exists Adult BMI Screening 12/20/2025 12/20/2024 Colonoscopy 11/04/2028 11/05/2023, 10/09, 10/11/2018, Additional history exists COVID-19 Vaccine Completed 07/01/2024, 07/2023, 01/13/2022, Additional history exists Medical Devices Not on file Procedures Procedure Name Priority Date/Time Associated Diagnosis Comments PROVATION COLONOSCOPY Routine 11/05/2023 9:30 AM EST from Last 3 Months or Most Recently Relevant to Health Maintenance Results * Colonoscopy Report (11/05/2023 9:30 AM EST) Narrative SYSTEMGENERATED, DOCUMENTATION - 11/05/2023 9:30 AM EST This order has been auto-finalized for image and report archival in PACs. *For full report details, please reach out to your physician. This image is visible to you in MyChart.* Lee Quiles DO IMG OR IMG ORDERABLES Final Result from Last 3 Months or Most Recently Relevant to Health Maintenance Insurance [facility] Care Teams Test Cell Technician Relationship Specialty Start Date End Date Tano Kimball MD PCP - General Family Medicine 09/22/18
--- OUTSIDE RECORDS SUMMARY | 2025-06-08 12:05 | XMS_ITS | Patient Health Record ---
Author Organization [facility] Address [address] [place] [address] Care Team Providers Care Director Of Procurement Name Role Phone Tano Kimball Primary Care Provider UnavailRaymond Woodward Unavailable [phone] Carissa Izquierdo Unavailable [phone] Idalmis Betancourt Unavailable Allergies Allergen (clinical drug ingredient) Drug/Non Drug Allergy documented on EMR Reaction Allergy Type Onset Date Status PENICILLIN (uncoded) Unknown Allergy Active SULFA (uncoded) Unknown Allergy Acti ve Results Component Value Reference Range Notes Ba OTS Reviewed date:01/18/2025 10:21:47 AM Interpretation: Performing Lab: Notes/Report: Surgery Scheduling Reviewed date:01/18/2025 09:28:59 AM Interpretation:[facility] @ [facility] 12/30/24 Performing Lab: Notes/Report: [facility] @ [facility] 12/30/24 Social Sec number: [phone] Primary Insurance Company: [facility] Surgeon/Assist: [place] Surgery Location: [facility] Surgery Date & Time: 12/30/24 @ 10:00 a.m. Surgery End Time: 90 Minutes Procedure: Right Shoulder Arthr oscopic Rotator Cuff Repair, 19529 Special Equipment: Arthrex Diagnosis: Right Shoulder Rotat or Cuff Tear, M75.121 Admission Type: Outpatient Anesthesia Type/CPNB: General/Block Post-op Appointment Date: 01/11/25 @ 10:45 a.m. Latex Allergy No Lab Location: [facility] Cook: Maria A Surgery Scheduling Reviewed date:01/18/2025 09:22:33 AM Interpretation: Performing Lab: Notes/Report: Ba OTS Reviewed date:01/18/2025 10:20:44 AM Interpretation: Performing Lab: Notes/Report: Surgery Scheduling Reviewed date:11/03/2024 12:46:39 PM Interpretation: Performing Lab: Notes/Report: Social Sec number: [id number] Primary Insurance Company: [employer] [facility] Surgeon/Assist: BEN BOLT Surgery Location: [facility] Surgery Date & Time: 10/31/24 Surgery End Time: 90 MINUTES Procedure: RIGHT SHOULDER ARTHR OSCOPIC ROTATOR CUFF REPAIR, 71279 Special Equipment: ARTHREX Diagnosis: M75.121 Admission Type: OUTPATIENT Anesthesia Type/CPNB: GENERAL Post-op Appointment Date: 11/14/24 Latex Allergy NO Lab Location: [facility] Cafe Cook: NAHUM Reason For Referral Reason APPROVED ........... PLEASE OBTAIN AUTHORIZATION FOR RIGHT SHOULDER ARTHROSCOPIC ROTATOR CUFF REPAIR Maverick Sarabia 10/24/2024 11:21:33 AM >Cpt code 04660 Diagnosis 1 Complete tear of rig ht rotator cuff, unspecified whether traumatic (M75.121) Referral Organization [facility] Referring Provider First Name [facility] Referring Provider Last Name [place] Referring Provider Speciality Orthopedic Surgery Referred Organization [facility] Referred Address [address],[place], [place],[address], General Notes Corrie Sim 025 11:01:15 AM >NEED SX CODE PLEASECornell Chad 10/24/2024 11:21:33 AM >Cpt code 78080Chiquis Amy 10/24/2024 12:41:50 PM >APPROVED PER [facility] AUTH #[id number] VALID 10/31/2024-01/29/2025 COPY IN CHART MA NOTIFIED REF FAXED TO Jorje SIERRA Kimberly 12/26/2024 01:16:30 PM > Patient is rescheduled for 12/30/24, checking to make sure that we are ok to proceed. Location is also changing from [place] to [facility] Chiquis Abarca Amy 12/26/2024 01:42:55 PM >STILL FALLS WITHIN THE ALLOWED DATES, BUT WILL NEED TO CALL TO CHANGE FACILITY.Chiquis Amy 12/26/2024 02:05:35 PM >[facility] HAVING CARLOS DIFICAULTY. CALL LATER, Corrie Sim 12/27/2024 10:01:01 AM >PER ISA CALZADA, FACILITY CANNOT BE CHANGED. CURRENT AUTH WILL NEED TO BE WITH DRAWN AND A NEW AUTH NEEDS STARTED. CALL REF #[id number] I WILL CHECK W MA BEFORE CHANGING ANYTHING, Corrie Sim 12/27/2024 10:04:44 AM >PER MA, START A NEW AUTH. WILL NEED TO CALL [facility] AGAIN AND CX ORIGINAL AUTH BEFORE REQUESTING A NEW AUTH., Corrie Sim 12/27/2024 10:21:35 AM >PER NOY Santiago, CASE HAS BEEN WITHDRAWN AND NEW CASE STARTED CASE #[id number] CALL REF #[id number], Corrie Sim 12/27/2024 01:03:15 PM >APPROVED PER [facility] AUTH #[id number] VALID 12/30/2024-03/30/2025 COPY IN CHART CORTNEY NOTIFIED REF FAXED TO [facility] Referral Priority Stat Reason JOSE........Obtain au thorization for right shoulder MRI Diagnosis 1 Complete tear of rig ht rotator cuff, unspecified whether traumatic (M75.121) Referral Organization [facility] Referring Provider First Name Raymond Referring Provider Last Name [place] Referring Provider Speciality Orthopedic Surgery Referred Organization [facility] hong Referred Address [place], [place], Procedure 1 MRI Joint Upper Ext w/o Dye (18232) General Notes Corrie Sim 025 01:46:33 PM >PER [facility], NO AUTH REQUIRED CORTNEY NOTIFIED REF FAXED TO Zeyad SIERRA Monica 05/25/2025 03:14:02 PM >faxed to [facility] Referral Priority Routine Medications Medication SIG (Take, Route, Fr equency, Duration) Notes Start Date End Date Status levothyroxine Active leflunomide Active liothyronine Active Metoprolol Succinate ER Active atorvastatin Active aspirin Active valsartan Active Jardiance Active pantoprazole Active clopidogrel Active Social History [...] (Standard) Question Answer Notes Tobacco use: Nonsmoker Problems Problem Type SNOMED Code ICD Code Onset Dates Problem Status W/U Status Risk Notes Problem [id number] Osteoarthritis of right glenohumeral joint (M19.011) Active confirmed Problem 005930562 Bicipital tendinitis, right shoulder (M75.21) Active confirmed Problem 457642045 Complete tear of right rotator cuff, unspecified whether traumatic (M75.121) Active confirmed Vital Signs Height 5'4 in 12/26/2024 Weight 180 lbs 12/26/2024 BMI 30.89 12/26/2024 Encounters Encounter Location Date Provider Diagnosis [facility] [address] [place] [address] 05/24/2025 Carissa Izquierdo Complete tear of right rotator cuff, unspecified whether traumatic M75.121 [facility] [address] [facility] [place] [address] 10/24/2024 Idalmis Betancourt Complete tear of right rotator cuff, unspecified whether traumatic M75.121 ; Osteoarthritis of right glenohumeral joint M19.011 and Bicipital tendinitis, right shoulder M75.21 [facility] [address] [place] [address] 12/26/2024 Raymond Madera Complete tear of right rotator cuff, unspecified whether traumatic M75.121 ; Osteoarthritis of right glenohumeral joint M19.011 and Bicipital tendinitis, right shoulder M75.[address] [address] 12/30/2024 Raymond Madera Complete tear of right rotator cuff, unspecified whether traumatic M75.121 [facility] [address] [place] [address] 01/11/2025 Carissa Izquierdo Complete tear of right rotator cuff, unspecified whether traumatic M75.121 [facility] [address] [place] [address] 02/08/2025 Idalmis crewsJeyson Complete tear of right rotator cuff, unspecified whether traumatic M75.121 [facility] [address] [place] [address] 03/22/2025 Raymond Doland Complete tear of right rotator cuff, unspecified whether traumatic M75.121 [facility] [address] [place] [address] 11/18/2024 Raymond Cassy [facility] [address] [facility] [place] [address] 11/21/2024 Raymond Cassy [facility] [address] [place] [address] 12/23/2024 Raymond Doland Complete tear of right rotator cuff, unspecified whether traumatic M75.121 Assessments Encounter Date Diagnosis (ICD Code) Assessment Notes Treatment Notes Treatment Clinical Notes Section Notes 10/24/2024 Complete tear of right rotator cuff, unspecified whether traumatic (ICD-10 - M75.121) Right rotator cuff tear-supra spinatus/i nfraspinat us Right AC joint OA Right GH joint OA 12/23/2024 Complete tear of right rotator cuff, unspecified whether traumatic (ICD-10 - M75.121) 12/26/2024 Complete tear of right rotator cuff, unspecified whether traumatic (ICD-10 - M75.121) Right rotator cuff tear-supra spinatus/i nfraspinat us Right AC joint OA Right GH joint OA 12/30/2024 Complete tear of right rotator cuff, unspecified whether traumatic (ICD-10 - M75.121) 01/11/2025 Complete tear of right rotator cuff, unspecified whether traumatic (ICD-10 - M75.121) 02/08/2025 Complete tear of right rotator cuff, unspecified whether traumatic (ICD-10 - M75.121) 03/22/2025 Complete tear of right rotator cuff, unspecified whether traumatic (ICD-10 - M75.121) 05/24/2025 Complete tear of right rotator cuff, unspecified whether traumatic (ICD-10 - M75.121) 10/24/2024 Osteoarthritis of right glenohumeral joint (ICD-10 - M19.011) Right rotator cuff tear-supra spinatus/i nfraspinat us Right AC joint OA Right GH joint OA 10/24/2024 Bicipital tendinitis, right shoulder (ICD-10 - M75.21) Right rotator cuff tear-supra spinatus/i nfraspinat us Right AC joint OA Right GH joint OA 12/26/2024 Osteoarthritis of right glenohumeral joint (ICD-10 - M19.011) Right rotator cuff tear-supra spinatus/i nfraspinat us Right AC joint OA Right GH joint OA 12/26/2024 Bicipital tendinitis, right shoulder (ICD-10 - M75.21) Right rotator cuff tear-supra spinatus/i nfraspinat us Right AC joint OA Right GH joint OA 05/24/2025 Other I have ordered an MRI of the right shoulder to evaluate the rotator cuff repair to be sure it is still intact given her failure to improve with persistent pain, popping. And weakness.. Will follow-up after this is complete. Plan has been agreed upon by my supervising physician, [MD Diana. 10/24/2024 Other Today I reviewe d patient's MRI results with her and discussed that she does have a rotator cuff tear that is retracted along with some mild AC and GH joint osteoarthritis. We did discuss surgical intervention versus conservative treatment. Patient is still working and the pain and limited range of motion of her shoulder are affecting her activities of daily living. We discussed that it is possible that if we surgically tried to repair her rotator cuff it may be unrepairable given the retraction. A rotator cuff repair may also not relieve all of her pain given her mild osteoarthritis. Patient voices understanding of these risks. I discussed the procedure with the patient at length, including all potential risk, benefits, and complications. I answered all the patients questions to their satisfaction. No guarantees were given as to surgical outcome. The patient has elected to go forward with surgical intervention, and this will be scheduled to be performed at a date and time to be determined. This will serve as the H & P. Right rotator cuff tear-supra spinatus/i nfraspinat us Right AC joint OA Right GH joint OA 12/26/2024 Other Today I reviewe d patient's MRI results with her and discussed that she does have a rotator cuff tear that is retracted along with some mild AC and GH joint osteoarthritis. We did discuss surgical intervention versus conservative treatment. Patient is still working and the pain and limited range of motion of her shoulder are affecting her activities of daily living. We discussed that it is possible that if we surgically tried to repair her rotator cuff it may be unrepairable given the retraction. A rotator cuff repair may also not relieve all of her pain given her mild osteoarthritis. Patient voices understanding of these risks. I discussed the procedure with the patient at length, including all potential risk, benefits, and complications. I answered all the patients questions to their satisfaction. No guarantees were given as to surgical outcome. The patient has elected to go forward with surgical intervention, and this will be scheduled to be performed at a date and time to be determined. This will serve as the H & P. Right rotator cuff tear-supra spinatus/i nfraspinat us Right AC joint OA Right GH joint OA 01/11/2025 Other She will stay immobilized in her sling. I've encouraged her to work on elbow range of motion exercises twice daily. She will not lift push or pull with the right arm. She'll start therapy in 2 weeks for rotator cuff protocol. We will see her back in a month to reassess her progress. Plan has been agreed upon by my supervising physician, Dr. Cassy MD. 02/08/2025 Other Patient will continue with physical therapy and can discontinue sling at this time. We discussed she will be on a 5 pound push/pull/lift limit with her right upper extremity. We will keep her out of work at this time as her job is very repetitive and she is right hand dominant. They do not allow for return with restrictions. Will see her back in 6 weeks for reevaluation. 03/22/2025 Other I have reviewed with her home stretches. She will follow-up in 2 months to reassess her progress. Import medication Plan Of Treatment Pending Test Test Name Order Date [facility]- PT/OT ROTATOR CUFF PROTOCOL 3X/WEEK FOR 6 WEEKS 01/11/2025 MRI : Shoulder W/O Contrast Right - 7322 1 05/24/2025 Next Appt Details Provider Name:Raymond Stallworth and, 06/19/2025 01:30:00 PM, [address] [facility] [address], [place], [address], Insurance Providers Payer Name Payer Address Payer Phone Subscriber Number Group Number Insured Name Patient Relationship to Insured Coverage Start Date Coverage End Date [facility] [address] [place] [address] [phone] [id number] KALEB ZAYAS Spouse - patient is the spouse of the insured 5 Medical (General) History Medical History History ICD Code Hypothyroidism Drug Allergies Surgical History Surgery Date(Month/Year) Arthroscopic right shoulder with RCR
--- OUTSIDE RECORDS SUMMARY | 2025-06-08 12:05 | XMS_ITS | Encounter Summary ---
Author Organization [facility] Address [address] [place] [address] Care Team Providers Care Dairy Nutritionist Name Role Phone Tano Kimball MD Primary Care Provider Encounter Details Date Type Department Care Team (Late st Contact Info) Description 06/04/2025 Results Follow-Up [address] [address] Nilo Valenzuela MD [address] [place] [address] Complete Echo (TTE) w/wo Imaging Agent, Strain, 3D, Bubble Study Social History Tobacco Use Types Packs/Day Years Used Date Smoking Tobacco: Former Cigarettes Q uit: 1997 Smokeless Tobacco: Never Alcohol Use Standard Drinks/Week [...] Description 07/05/2025 2:20 PM EDT Office Visit [facility] [address] [place] [address] Nilo Valenzuela MD [address] [place] [address] documented as of this encounter Visit Diagnoses Not on filedocumented in this encounter Care Teams Dairy Nutritionist Relationship Specialty Start Date End Date Tano Kimball MD [address] [facility] [place] [address] PCP - General 03/11/24 documented as of this encounter
--- OUTSIDE RECORDS SUMMARY | 2025-06-08 12:05 | XMS_ITS | Encounter Summary ---
Author Organization [facility] tem Address [id number] [address] [place] [address] Care Team Providers Care Curb Machine Operator Name Role Phone Tano Kimball MD Primary Care Provider [phone] Encounter Details Date Type Department Care Team (Latest Contact Info) Description 06/07/2025 Travel Social History Tobacco Use Types Packs/Day Years Used Date Smoking Tobacco: Former Cigarettes 09 28 1 10/29/1975 - 08/28/1998 Smokeless Tobacco: Never Alcohol Use Standard [...] Upcoming Encounters Date Type Department Care Team ( Contact Info) Description 06/13/2025 1:15 PM EDT Appointment [facility] Celso Hubbard [place] [facility] [address] [place] [address] Arrived documented as of this encounter Visit Diagnoses Not on filedocumented in this encounter Care Teams Curb Machine Operator Relationship Specialty Start Date End Date Tano Kimball MD PCP - General Family Medicine 09/22/18 documented as of this encounter
--- OUTSIDE RECORDS SUMMARY | 2025-06-08 12:05 | XMS_ITS | Encounter Summary ---
Author Organization [facility] Address [id number] [address] [place] [address] Care Team Providers Care Residence Supervisor Name Role Phone Tano Kimball MD Primary Care Provider [phone] Reason for Visit * Reason Comments Med Refill Encounter Details Date Type Department Care Team ([facility] st Contact Info) Description 03/31/2024 Refill [facility] General Surgery [address] [phone] Lee Quiles DO [address] [place] [address] Social History Tobacco Use Types Packs/Day Years [...] 06/13/2025 1:15 PM EDT Appointment Franc[facility]ka Hubbard [place] [facility] [address] [place] [phone] Arrived documented as of this encounter Visit Diagnoses Not on filedocumented in this encounter Care Teams Residence Supervisor Relationship Specialty Start Date End Date Tano Kimball MD PCP - General Family Medicine 09/22/18 documented as of this encounter
--- OUTSIDE RECORDS SUMMARY | 2025-06-08 12:05 | XMS_ITS | Encounter Summary ---
Author Organization [facility] Address [id number] [address] [place] [address] Care Team Providers Care Bobbin Cleaning Machine Operator Name Role Phone Tano Kimball MD Primary Care Provider [phone] Reason for Visit * Reason Comments Med Refill Encounter Details Date Type Department Care Team ([facility] st Contact Info) Description 01/30/2022 Refill [facility] Obst[facility]necology [address] [place] [id number] Quin Mayo, GRINDER SET UP OPERATOR [facility] [address] [place] [address] Hot flashes Social History Tobacco Use Types Packs/Day Years [...] Exposure Response Date Recorded In the last 10 days, have yo u been in contact with someone who was confirmed or suspected to have Coronavirus/COVID-19? No / Unsure 01/02/2022 3:39 PM EDT documented as of this encounter Miscellaneous Notes * Telephone Encounter - KATELYN Ramirez - 01/30/2022 9:41 AM EDT Please schedule appt. For mgmt. Of menopausal symptoms. documented in this encounter Plan of Treatment Upcoming Encounters Date Type Department Care Team (Late st Contact Info) Description 06/13/2025 1:15 PM EDT [facility] [place] [facility] [address] [place] [address] Arrived documented as of this encounter Visit Diagnoses Diagnosis Hot flashes documented in this encounter Care Teams Bobbin Cleaning Machine Operator Relationship Specialty Start Date End Date Tano Kimball MD PCP - General Family Medicine 09/22/18 documented as of this encounter
--- OUTSIDE RECORDS SUMMARY | 2025-06-08 12:05 | XMS_ITS | Patient Health Record ---
Author Organization [facility] in [place] Address [address] [place] [address] Care Team Providers Care Music Executive Name Role Phone Michel Kimball Primary Care Provider Ashlee Allen Unavailable [phone] Allergies Allergen (clinical drug ingredient) Drug/Non Drug Allergy documented on EMR Reaction Allergy Type Onset Date Status amoxicillin / clavulanate Augmentin unknown Drug Allergy Active ciprofloxacin Cipro unknown Drug Allergy Act tom fluconazole Diflucan hard to breath Drug Allergy Active Substance with sulfonamide structure and antibacterial mechanism of action (substance) Sulfa Antibiotics lips swell Drug Allergy Active Results Component Value Reference Range Notes COVID-19, Flu A+B IH Reviewed date:09/28/2024 03:23:23 PM Interpretation: Performing Lab: Notes/Report: COVID - FLU A - FLU B - Control + XR cervical spine 2-3V Reviewed date:09/12/2024 08:57:05 AM Interpretation: Performing Lab: Notes/Report: Source Facility: [place] [address] [place] [address] XRay Report Signed Patient: DEEPA SEARS MR#: [id number] : 1960 Acct:[id number] Age/Sex: 64 / F ADM Date: 09/09/24 Loc: RAD Attending Dr: ASHLEE ALLEN Ordering Physician: ASHLEE ALLEN Date of Service: 09/09/24 Procedure(s): XR cervical spine 2-3V Accession Number(s): [id number] cc: ASHLEE ALLEN ; Real Kimball M.D. [place] [id number] Patient Name: DEEPA SEARS MRN: [id number] date: 1960 Sex: F Assigned Patient Location: [facility] Current Patient Location: Accession/Order Number: [id number] Exam Date: 09/09/2024 11:20 Report Date: 09/12/2024 07:50 At the request of: ASHLEE ALLEN Procedure: XR cervical spine 2-3V EXAMINATION: XR cervical spine 2-3V HISTORY: Neck Pain M54.2 COMPARISON: No relevant comparison available. FINDINGS: BONES: Normal alignment with no acute fracture or spondylolisthesis. Minimal spondylosis. Moderate facet osteoarthropathy DISC SPACES: Normal. No significant disc height narrowing, subluxation, or endplate abnormality. PARASPINOUS: Negative. No paraspinous abnormality is seen. OTHER: Negative. XR/XR cervical spine 2-3V IMPRESSION: Moderate facet osteoarthropathy. Electronically authenticated by: CALLY CURRAN Date: 09/12/2024 07:50 Dictated By: Cally Curran M.D. Signed By: 09/12/24 0752 DD/ 075 TD/TT: Roller Checker: ANNE humerus RT Reviewed date:09/22/2024 12:49:58 PM Interpretation: Performing Lab: Notes/Report: Source Facility: [place] [address] [place] [address] XRay Report Signed Patient: DEEPA SEARS MR#: [id number] : 1960 Acct:[id number] Age/Sex: 64 / F ADM Date: 09/22/24 Loc: RAD Attending Dr: Real Kimball M.D. Ordering Physician: Real Kimball M.D. Date of Service: 09/22/24 Procedure(s): XR humerus RT Accession Number(s): [id number] cc: Real Kimball M.D. [place] [id number] Patient Name: DEEPA SEARS MRN: [id number] date: 1960 Sex: F Assigned Patient Location: RAD Current Patient Location: RAD Accession/Order Number: [id number] Exam Date: 09/22/2024 10:31 Report Date: 09/22/2024 10:54 At the request of: REAL KIMBALL Procedure: XR humerus RT PROCEDURE: XR shoulder RT min 2V, XR humerus RT COMPARISON: None. HISTORY: Shoulder Impingement FINDINGS: BONES:No acute fracture or dislocation. Minimal degenerative change of the acromioclavicular and glenohumeral joints. Humerus is intact . No significant subacromial spurring SOFT TISSUES:Negative. No visible soft tissue swelling. EFFUSION:None visible. OTHER: Negative. XR/XR humerus RT IMPRESSION: Minimal osteoarthritis Electronically authenticated by: CALLY CURRAN Date: 09/22/2024 10:54 Dictated By: Cally Curran M.D. Signed By: 09/22/24 1056 DD/ 1054 TD/TT: Roller Checker: XR lumbar spine min 4V Reviewed date:07/28/2024 02:55:05 PM Interpretation: Performing Lab: Notes/Report: Source Facility: [place] [address] XRay Report Signed Patient: DEEPA SEARS MR#: [id number] : 1960 Acct:[id number] Age/Sex: 64 / F ADM Date: 07/25/24 Loc: RAD Attending Dr: Real Kimball M.D. Ordering Physician: Real Kimball M.D. Date of Service: 07/25/24 Procedure(s): XR lumbar spine min 4V Accession Number(s): [id number] cc: Real Kimball M.D. [place] [address] Patient Name: DEEPA SEARS MRN: [id number] date: 1960 Sex: F Assigned Patient Location: RAD Current Patient Location: Accession/Order Number: [id number] Exam Date: 07/25/2024 15:50 Report Date: 07/28/2024 05:59 At the request of: REAL KIMBALL Procedure: XR lumbar spine min 4V EXAMINATION: XR lumbar spine min 4V HISTORY: Lumbar Radiculopathy M54.16 COMPARISON: CT abdomen pelvis 02/15/2024 FINDINGS: BONES: Mild degenerative facet arthropathy L3-L4, L4-L5, L5-S1. No fracture or spondylolisthesis. DISC SPACES: Moderate narrowing L5-S1. PARASPINOUS: Negative. No paraspinous abnormality is seen. OTHER: Negative. XR/XR lumbar spine min 4V IMPRESSION: 1. L5-S1 moderate degenerative disc disease and mild degenerative facet arthropathy; not appreciably changed. Electronically authenticated by: RAYMOND NEFF Date: 07/28/2024 05:59 Dictated By: Raymond Neff M.D. Signed By: 07/28/24 0602 DD/ 0559 TD/TT: Roller Checker: MR lumbar spine wo con Reviewed date:10/30/2024 10:10:25 AM Interpretation: Performing Lab: Notes/Report: Source Facility: [place] [address] Magnetic Resonance Report Signed Patient: DEEPA SEARS MR#: [id number] : 1960 Acct:[id number] Age/Sex: 64 / F ADM Date: 08/25/24 Loc: MRI Attending Dr: Real Kimball M.D. Ordering Physician: Real Kimball M.D. Date of Service: 08/25/24 Procedure(s): MR lumbar spine wo con Accession Number(s): [id number] cc: Real Kimball M.D. [place] [address] Patient Name: DEEPA SEARS MRN: [id number] date: 1960 Sex: F Assigned Patient Location: MRI Current Patient Location: [place] Accession/Order Number: [id number] Exam Date: 08/25/2024 16:00 Report Date: 08/26/2024 13:32 At the request of: REAL KIMBALL Procedure: MR lumbar spine wo con EXAMINATION: MR lumbar spine wo con HISTORY: Low Back Pain COMPARISON: No relevant comparison available. TECHNIQUE: A variety of imaging planes and parameters were utilized for visualization of suspected pathology. FINDINGS: For the purposes of numbering, sagittal T2 image # 7 extends from the T10 vertebral body superiorly to the S3 level inferiorly. PARASPINAL AREA: Normal with no visible mass. BONES: Normal alignment with no acute fracture or spondylolisthesis CORD/CAUDA EQUINA: Normal caliber, contour, and signal intensity. DISC LEVELS: 12-L1: No significant disc/facet abnormality, spinal stenosis, or foraminal stenosis. L1-L2: No significant disc/facet abnormality, spinal stenosis, or foraminal stenosis. L2-L3: Early degenerative disc disease is present without focal protrusion or neural impingement. L3-L4: Early degenerative disc disease is present without focal protrusion or neural impingement. L4-L5: No significant disc/facet abnormality, spinal stenosis, or foraminal stenosis. L5-S1: No significant disc/facet abnormality, spinal stenosis, or foraminal stenosis. MR/MR lumbar spine wo con IMPRESSION: Mild degenerative changes L2-3 and L3-L4 with no central or foraminal stenosis Electronically authenticated by: CALLY CURRAN Date: 08/26/2024 13:32 Dictated By: Cally Curran M.D. Signed By: 10/27/24 1235 DD/ 1332 TD/TT: Roller Checker: XR shoulder RT min 2V Reviewed date:09/22/2024 12:49:58 PM Interpretation: Performing Lab: Notes/Report: Source Facility: [place] [address] [place] [address] XRay Report Signed Patient: DEEPA SEARS MR#: [id number] : 1960 Acct:[id number] Age/Sex: 64 / F ADM Date: 09/22/24 Loc: RAD Attending Dr: Real Kimblal M.D. Ordering Physician: Real Kimball M.D. Date of Service: 09/22/24 Procedure(s): XR shoulder RT min 2V Accession Number(s): [id number] cc: Real Kimball M.D. [place] [id number] Patient Name: DEEPA SEARS MRN: [id number] date: 1960 Sex: F Assigned Patient Location: RAD Current Patient Location: RAD Accession/Order Number: [id number] Exam Date: 09/22/2024 10:31 Report Date: 09/22/2024 10:54 At the request of: REAL KIMBALL Procedure: XR shoulder RT min 2V PROCEDURE: XR shoulder RT min 2V, XR humerus RT COMPARISON: None. HISTORY: Shoulder Impingement FINDINGS: BONES:No acute fracture or dislocation. Minimal degenerative change of the acromioclavicular and glenohumeral joints. Humerus is intact . No significant subacromial spurring SOFT TISSUES:Negative. No visible soft tissue swelling. EFFUSION:None visible. OTHER: Negative. XR/XR shoulder RT min 2V IMPRESSION: Minimal osteoarthritis Electronically authenticated by: CALLY CURRAN Date: 09/22/2024 10:54 Dictated By: Cally Curran M.D. Signed By: 09/22/24 1057 DD/ 1054 TD/TT: Roller Checker: Epithelial Cells Reviewed date:09/29/2024 06:19:12 PM Interpretation: Performing Lab: Notes/Report: [facility] , Epithelial Cells See Below For Report Epithelial Cells Few Performing Lab: see note LC - [facility] LB Result 1 Reviewed date:09/29/2024 06:19:12 PM Interpretation: Performing Lab: Notes/Report: [facility] , Result 1 See Below For Report Result 1 Few gram negative rods. Performing Lab: see note LC - [facility] LB Result 2 Reviewed date:09/29/2024 06:19:12 PM Interpretation: Performing Lab: Notes/Report: [facility] , Result 2 See Below For Report Result 2 Few gram positive rods. Performing Lab: see note LC - [facility] LB Result 3 Reviewed date:09/29/2024 06:19:13 PM Interpretation: Performing Lab: Notes/Report: [facility] , Result 3 See Below For Report Result 3 ADULT MANAGER Performing Lab: see note LC - [facility] LB Result 4 Reviewed date:09/29/2024 06:19:13 PM Interpretation: Performing Lab: Notes/Report: [facility] , Result 4 See Below For Report Result 4 ADULT MANAGER Performing Lab: see note LC - [facility] LB Gram Stain Evaluation Reviewed date:09/29/2024 06:19:13 PM Interpretation: Performing Lab: Notes/Report: [facility] , Gram Stain Evaluation See Below For Report Gram Stain Evaluation This specimen is of good quality and is acceptable for routine Gram Stain Evaluation bacterial culture. Gram Stain Evaluation This specimen is of good quality and is acceptable for routine Performing Lab: see note - [facility] LB Lower Respiratory Culture Reviewed date:09/29/2024 06:19:13 PM Interpretation: Performing Lab: Notes/Report: [facility] , Lower Respiratory Culture See Below For Report Lower Respiratory Culture WILL FOLLOW Lower Respiratory Culture Routine respir atory leesa Lower Respiratory Culture WILL FOLLOW Lower Respiratory Culture Performed at: [facility] Lower Respiratory Culture WILL FOLLOW Lower Respiratory Culture [address], [place], [place] [id number] Lower Respiratory Culture WILL FOLLOW Lower Respiratory Culture Transfill Technician: Ty Moe PhD, Phone: [phone] Lower Respiratory Culture WILL FOLLOW Performing Lab: see note - [facility] LB SEE REPORT - Shell Sorter Id information not found for OBX-specific sales producer legend White Blood Cells Reviewed date:10/16/2024 11:28:14 AM Interpretation: Performing Lab: Notes/Report: [facility] , White Blood Cells See Below For Report White Blood Cells White Blood Cells Few White Blood Cells Performing Lab: see note - [facility] LB Epithelial Cells Reviewed date:10/16/2024 11:28:14 AM Interpretation: Performing Lab: Notes/Report: [facility] , Epithelial Cells See Below For Report Epithelial Cells Few Performing Lab: see note - [facility] LB Result 1 Reviewed date:10/16/2024 11:28:14 AM Interpretation: Performing Lab: Notes/Report: [facility] , Result 1 See Below For Report Result 1 Few gram positive rods. Performing Lab: see note LC - [facility] LB Result 2 Reviewed date:10/16/2024 11:28:14 AM Interpretation: Performing Lab: Notes/Report: [facility] , Result 2 See Below For Report Result 2 Few gram positive cocci Performing Lab: see note - [facility] LB Result 3 Reviewed date:10/16/2024 11:28:14 AM Interpretation: Performing Lab: Notes/Report: [facility] , Result 3 See Below For Report Result 3 Few gram negative cocci Performing Lab: see note LC - [facility] LB Result 4 Reviewed date:10/16/2024 11:28:14 AM Interpretation: Performing Lab: Notes/Report: [facility] , Result 4 See Below For Report Result 4 ADULT MANAGER Performing Lab: see note LC - [facility] LB Gram Stain Evaluation Reviewed date:10/16/2024 11:28:14 AM Interpretation: Performing Lab: Notes/Report: [facility] , Gram Stain Evaluation See Below For Report Gram Stain Evaluation This specimen is of good quality and is acceptable for routine Gram Stain Evaluation bacterial culture. Gram Stain Evaluation This specimen is of good quality and is acceptable for routine Performing Lab: see note LC - [facility] Lower Respiratory Culture Reviewed date:10/16/2024 11:28:14 AM Interpretation: Performing Lab: Notes/Report: [facility] , Lower Respiratory Culture See Below For Report Lower Respiratory Culture WILL FOLLOW Lower Respiratory Culture Routine respir atory leesa Lower Respiratory Culture WILL FOLLOW Lower [facility]piratory Culture WILL FOLLOW Lower Respiratory Culture [address] [facility], [place], [place] [id number] Lower Respiratory Culture WILL FOLLOW Lower Respiratory Culture Transfill Technician: Ty Moe PhD, Phone: [phone] Lower Respiratory Culture WILL FOLLOW Performing Lab: see note LC - [facility] LB SEE REPORT - Shell Sorter Id information not found for OBX-specific sales producer legend FL guided needle placement Reviewed date:10/16/2024 11:28:14 AM Interpretation: Performing Lab: Notes/Report: Source Facility: [place] [address] [place] [address] Fluoroscopy Report Signed Patient: DEEPA SEARS MR#: [id number] : 1960 Acct:[id number] Age/Sex: 64 / F ADM Date: 10/14/24 Loc: MRI Attending Dr: Real Kimball M.D. Ordering Physician: Real Kimball M.D. Date of Service: 10/14/24 Procedure(s): FL guided needle placement Accession Number(s): [id number] cc: Real Kimball M.D. [place] [address] Patient Name: DEEPA SEARS MRN: [id number] date: 1960 Sex: F Assigned Patient Location: MRI Current Patient Location: MRI Accession/Order Number: [id number] Exam Date: 10/14/2024 08:35 Report Date: 10/14/2024 09:57 At the request of: REAL KIMBALL Procedure: FL guided needle placement EXAMINATION: FL arthrogram shoulder, FL guided needle placement HISTORY: Shoulder Impingement COMPARISON: No relevant comparison available. TECHNIQUE: An arthrogram was performed under fluoroscopic guidance using non-ionic contrast material in the usual sterile manner after obtaining informed consent. Standard level fluoroscopic mode of operation utilized. FINDINGS: JOINT: Right shoulder NEEDLE: 25 gauge, 3.5 spinal needle. MEDICATION: 2cc buffered 1% lidocaine for subcutaneous anesthesia 5 mL Omnipaque 240. 5 mL 1% lidocaine. 0.2 mL Dotarem. TECHNIQUE: Anterior approach with prior localization. A single stick was successful in gaining access to the joint space. CLINICAL: 6 out of 10 pain before the procedure. 4 out of 10 pain following the procedure COMPLICATIONS: None. BONES: Normal. No erosion, osteophyte, fracture, or bony lesion. CARTILAGE: Normal. No visible erosion or interruption. CAPSULE: Normal. No visible capsular laxity or labrum tear. CAYLA-ARTICULAR: Normal. No visible cayla-articular soft tissue abnormality. LOOSE BODIES: None. OTHER: Negative. PLEASE ALSO SEE THE SEPARATE ARTHROGRAM PROCEDURE REPORT. FL/FL guided needle placement IMPRESSION: Technically successful right shoulder diagnostic arthrogram. Electronically authenticated by: CALLY CURRAN Date: 10/14/2024 09:57 Dictated By: Cally Curran M.D. Signed By: 10/14/24 1000 DD/ 0957 TD/TT: Roller Checker: FL arthrogram shoulder Reviewed date:10/16/2024 11:28:14 AM Interpretation: Performing Lab: Notes/Report: Source Facility: [facility]-[address] [place] [address] [address] Fluoroscopy Report Signed Patient: DEEPA SEARS MR#: [id number] : 1960 Acct:[id number] Age/Sex: 64 / F ADM Date: 10/14/24 Loc: MRI Attending Dr: Real Kimball M.D. Ordering Physician: Real Kimball M.D. Date of Service: 10/14/24 Procedure(s): FL arthrogram shoulder Accession Number(s): [id number] cc: Real Kimball M.D. [address] [address] Patient Name: DEEPA SEARS MRN: [id number] date: 1960 Sex: F Assigned Patient Location: MRI Current Patient Location: MRI Accession/Order Number: [id number] Exam Date: 10/14/2024 08:35 Report Date: 10/14/2024 09:57 At the request of: REAL KIMBALL Procedure: FL arthrogram shoulder EXAMINATION: FL arthrogram shoulder, FL guided needle placement HISTORY: Shoulder Impingement COMPARISON: No relevant comparison available. TECHNIQUE: An arthrogram was performed under fluoroscopic guidance using non-ionic contrast material in the usual sterile manner after obtaining informed consent. Standard level fluoroscopic mode of operation utilized. FINDINGS: JOINT: Right shoulder NEEDLE: 25 gauge, 3.5 spinal needle. MEDICATION: 2cc buffered 1% lidocaine for subcutaneous anesthesia 5 mL Omnipaque 240. 5 mL 1% lidocaine. 0.2 mL Dotarem. TECHNIQUE: Anterior approach with prior localization. A single stick was successful in gaining access to the joint space. CLINICAL: 6 out of 10 pain before the procedure. 4 out of 10 pain following the procedure COMPLICATIONS: None. BONES: Normal. No erosion, osteophyte, fracture, or bony lesion. CARTILAGE: Normal. No visible erosion or interruption. CAPSULE: Normal. No visible capsular laxity or labrum tear. CAYLA-ARTICULAR: Normal. No visible cayla-articular soft tissue abnormality. LOOSE BODIES: None. OTHER: Negative. PLEASE ALSO SEE THE SEPARATE ARTHROGRAM PROCEDURE REPORT. FL/FL arthrogram shoulder IMPRESSION: Technically successful right shoulder diagnostic arthrogram. Electronically authenticated by: CALLY CURRAN Date: 10/14/2024 09:57 Dictated By: Cally Curran M.D. Signed By: 10/14/24 1000 DD/ 0957 TD/TT: Roller Checker: shoulder RT w con Reviewed date:10/16/2024 11:28:14 AM Interpretation: Performing Lab: Notes/Report: Source Facility: [place] [address] Magnetic Resonance Report Signed Patient: DEEPA SEARS MR#: [id number] : 1960 Acct:[id number] Age/Sex: 64 / F ADM Date: 10/14/24 Loc: MRI Attending Dr: Real Kimball M.D. Ordering Physician: Real Kimball M.D. Date of Service: 10/14/24 Procedure(s): MR shoulder RT w con Accession Number(s): [id number] cc: Real Kimball M.D. [place] [address] Patient Name: DEEPA SEARS MRN: [id number] date: 1960 Sex: F Assigned Patient Location: MRI Current Patient Location: MRI Accession/Order Number: [id number] Exam Date: 10/14/2024 10:00 Report Date: 10/14/2024 15:06 At the request of: REAL KIMBALL Procedure: MR shoulder RT w con EXAM: MR shoulder RT w con REASON FOR EXAM: Shoulder Impingement. TECHNIQUE: Multiplanar, multisequence imaging of the right shoulder was performed following the uneventful intra-articular administration of contrast COMPARISON: Radiographs 09/22/2024. FINDINGS: The acromioclavicular joint is congruent. Mild joint space narrowing capsular hypertrophy. Mild broad-based thickening the coracoacromial ligament. Contrast equivalent fluid within the subacromial subdeltoid bursa is consistent with a full-thickness rotator cuff tear. Superimposed on tendinosis, there is full-thickness tearing of the central cuff. Few intact fibers of the far anterior margin the supraspinatus and the far posterior margin the infraspinatus tendons appear intact. Torn fibers retracted to the glenoid. The teres minor tendon is intact. The subscapularis tendon is intact. The extra capsular biceps tendon is within the bicipital groove. Minimal thickening of the intracapsular biceps tendon. The humerus is slightly high riding on the glenoid. Low to intermediate grade chondrosis of the glenohumeral cartilage. Near circumferential labral degeneration. Synovial thickening is present consistent with synovitis. No intra-articular body. The bone marrow signal is without fracture. The quadrilateral space is patent. No axillary lymphadenopathy. MR/MR shoulder RT w con IMPRESSION: 1. Full-thickness, near fullwidth tears of the supraspinatus and infraspinatus tendons with proximal retraction of torn fibers to the glenoid. 2. Biceps tendinosis without tear. 3. Mild AC joint osteoarthritis. 4. Mild glenohumeral osteoarthritis with near circumferential labral degeneration Electronically authenticated by: GISELLE LAND Date: 10/14/2024 15:06 Dictated By: Giselle Land M.D. Signed By: 10/14/24 1509 DD/ 1506 TD/TT: Roller Checker: ECG 12 lead Reviewed date:10/26/2024 07:44:01 PM Interpretation: Performing Lab: Notes/Report: Source Facility: [place] [address] Electrocardiograph Report Signed Patient: DEEPA SEARS MR#: [id number] : 1960 Acct:[id number] Age/Sex: 64 / F ADM Date: 10/25/24 Loc: PST Attending Dr: Raymond Madera M.D. Ordering Physician: Raymond Madera M.D. 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 Signed By: 10/26/24 0721 DD/ 1514 TD/TT: Roller Checker: SALTY fatmata perf SPECT rest str Reviewed date:11/02/2024 08:13:52 PM Interpretation: Performing Lab: Notes/Report: Source Facility: [place] [address] Nuclear Medicine Report Signed Patient: DEEPA SEARS MR#: [id number] : 1960 Acct:[id number] Age/Sex: 64 / F ADM Date: 11/02/24 Loc: [place] Attending Dr: Real Kimball M.D. Ordering Physician: Real Kimball M.D. Date of Service: 11/02/24 Procedure(s): NM fatmata perf SPECT rest str Accession Number(s): [id number] cc: Real Kimball M.D. Patient Name: DEEPA SEARS MR#: [id number] : 1960 Exam Date: 11/02/2024 Ordering Doctor: DR Real Kimball . RADIOLOGY REPORT PROCEDURE: NM FATMATA PERF SPECT REST STR COMPARISON: None. INDICATIONS: ISCHEMIC HEART DISEASE, ABNORMAL EKG, PRE-PROCEDURE EXAM TECHNIQUE: Exam Description: Stress/Rest one day protocol gated SPECT Rest Imagin.8 mCi Tc-99m Cardiolite IV on 11/02/2024 Stress Imaging 30.2 mCi Tc-99m Cardiolite IV on 11/02/2024 Exercise Protocol: Prasad Heart Rate (bpm): Rest: 67 Max: 142 PMHR: 91 Blood Pressure: Rest: 143/75 Max: 166/84 Exercise Time: Minutes: 5 Seconds: 28 Stage Reached: Stage: 2 Mets 7.0 Symptoms: Rest and peak stress ECG findings were pending and the exercise portion of the study was pending per attending physician Dr. MURRELL . For more details, please see separate cardiac stress test report. FINDINGS: QUALITY OF STUDY: Good PERFUSION DEFECT: LOCATION: Basal inferolateral SIZE: Moderate SEVERITY: Mild TYPE: Partially reversible WALL MOTION: Hypokinesia of the inferior wall LV SIZE: 163 mL. TID / TCD: 0.9 LVEF: Calculated EF 39%. SUMMARY: Myocardial perfusion imaging study is abnormal CONCLUSION: 1. Myocardial perfusion is abnormal with soft tissue attenuation 2. There is a partially reversible inferolateral and inferoseptal perfusion defect suggestive of infarct with cayla-infarct ischemia 3. Global left ventricular systolic function is moderately reduced; ejection fraction is 35% 4. No evidence of transient ischemic dilatation Dictated by: Evelin Rockwell M.D. on 11/02/2024 at 14:54 Approved by: Evelin Rockwell M.D. on 11/02/2024 at 15:00 Dictated By: Evelin Rockwell M.D. Signed By: 11/02/24 1502 DD/ 1501 TD/TT: Roller Checker: HEIDI echo doppler complete Reviewed date:11/16/2024 06:31:28 PM Interpretation: Performing Lab: Notes/Report: Source Facility: [place] [address] Cardiology Report Signed Patient: DEEPA SEARS MR#: [id number] : 1960 Acct:[id number] Age/Sex: 64 / F ADM Date: 11/16/24 Loc: CARD Attending Dr: Daxa Valenzuela M.D. Ordering Physician: Daxa Valenzuela M.D. Date of Service: 11/16/24 Procedure(s): CA echo doppler complete Accession Number(s): [id number] cc: Real Kimball M.D.; Daxa Valenzuela M.D. Patient Name: DEEPA SEARS MR#: [id number] : 1960 Exam Date: 11/16/2024 Ordering Doctor: DR. DAXA VALENZUELA M.D. ECHOCARDIOGRAM REPORT PROCEDURE: CA ECHO DOPPLER COMPLETE INDICATIONS: Abnormal ECG COMPARISON: None. DESCRIPTION: COMPLETE ECHOCARDIOGRAM Real-time transthoracic echocardiography with 2D, M-mode, spectral and color flow Doppler performed. QUALITY: Technical quality was good. LEFT VENTRICLE: Normal chamber size. Normal left ventricular wall thickness. LV EF: Global left ventricular systolic function is severely reduced; visually estimated ejection fraction is 20 to 25%. Diffuse global hypokinesis. The septum is abnormal in motion; may be related to underlying bundle branch block. DIASTOLIC: Grade II diastolic dysfunction. ATRIAL SEPTUM: Visually appears intact. LEFT ATRIUM: Moderate dilatation. RIGHT ATRIUM: Normal chamber size. RIGHT VENTRICLE: Normal chamber size. Normal right ventricular systolic function. TRICUSPID VALVE: Normal mobility and thickness. No stenosis with trivial regurgitation. Doppler studies reveal mildly (35-45) elevated right sided pressures. RVSP 44 mmHg MITRAL VALVE: Normal mobility and thickness. No evidence of mitral valve stenosis. Mild mitral annular calcification. Mild mitral regurgitation. AORTIC VALVE: Normal trileaflet appearance. No visible sclerosis. Normal leaflet mobility. No evidence of aortic valve stenosis. No aortic regurgitation. AORTIC ROOT: Normal diameter and appearance. PULMONIC VALVE: Normal thickness and mobility. No stenosis. No regurgitation. PERICARDIUM: No evidence of pericardial effusion. IVC: IVC is normal in size, does not collapse. CONCLUSION: 1. Global left ventricular systolic function is severely reduced; visually estimated ejection fraction is 20 to 35% 2. Normal right ventricular size and systolic function 3. Moderate left atrial dilatation 4. Grade 2 diastolic dysfunction 5. Mildly elevated right ventricular systolic pressure; RVSP 44 mmHg 6. Mild mitral regurgitation Adult Echocardiography Procedure Report Left Ventricle LVEDD (3.7 - 5.6 cm): 4.74 cm LVESD (2.2 - 4.0 cm): 3.09 cm LVIVS thickness (0.6 - 1.2 cm): 1.18 cm LVPW thickness (0.5 - 1.0 cm): 0.98 cm e': 0.07 m/s E - e': 9.56 LVOT Max Gradient: 2.23 mm[Hg] LVOT Area (cm2): 0.75 m/s Peak Velocity (LVOT): 0.75 m/s Mean Velocity (LVOT): 0.51 m/s LVOT Diameter 1.89 cm Left Atrium LA Volume Index (2D A2C): 46.10 ml/m2 Left Atrium Systolic Dimension: 3.39 cm Mitral Valve MV E to A Ratio: 0.74 Mitral Valve A-Wave Peak Velocity: 0.87 m/s Mitral Valve E-Wave Peak Velocity: 0.65 m/s Right Ventricle Aorta AO Root Diam: 3.40 cm Aortic Valve AoV Area (Peak Mark): 1.97 cm2, 1.97 cm2 AoV Area (VTI): 2.31 cm2, 2.31 cm2 Peak Velocity(Antegrade Flow): 1.06 m/s Peak Gradient(Antegrade Flow): 4.53 mm[Hg] Mean Velocity(Antegrade Flow): 0.71 m/s Mean Gradient(Antegrade Flow): 2.34 mm[Hg] Velocity Time Integral: 20.04 cm Tricuspid Valve Peak Velocity (Regurgitant Flow): 2.94 m/s, 2.99 m/s Pulmonic Valve Peak Velocity: 0.78 m/s Peak Gradient: 2.45 mm[Hg] Right Atrium Right Atrium Systolic Pressure: 40.53 ml, 40.53 ml Dictated by: Evelin Rockwell M.D. on 11/16/2024 at 11:57 Approved by: Evelin Rockwell M.D. on 11/16/2024 at 12:01 Dictated By: Evelin Rockwell M.D. Signed By: 11/16/24 1203 DD/ 120 TD/TT: Roller Checker: ANTHONY tomosynthesis screening B I Reviewed date:12/01/2024 08:18:17 PM Interpretation: Performing Lab: Notes/Report: Source Facility: [place] [address] Mammography Report Signed Patient: DEEPA SEARS MR#: [id number] : 1960 Acct:[id number] Age/Sex: 64 / F ADM Date: 11/30/24 Loc: MAMMO Attending Dr: Real Kimball M.D. Ordering Physician: Real Kimball M.D. Results: Date of Service: 11/30/24 Follow Up: Procedure(s): MM tomosynthesis screening BI Accession Number(s): [id number] cc: Real Kimball M.D. Patient Name: DEEPA SEARS MR#: [id number] : 1960 Exam Date: 11/30/2024 Ordering Doctor: DR REAL KIMBALL . RADIOLOGY REPORT PROCEDURE: MM TOMOSYNTHESIS SCREENING BI COMPARISON: MM TOMOSYNTHESIS SCREENING BI, 10/29/2023. MG MAMM SCREEN 3D DALE CAD, 10/20/2022. MG MAMM DALE SCRN W CAD DIG, 08/12/2016. MG MAMM DALE SCRN W CAD DIG, 01/06/2005. INDICATIONS: Screening Calculator Name NCI Breast Cancer Risk Assessment Tool 5 Year Breast Cancer Risk 3.30% Lifetime Breast Cancer Risk 12.80% Personal Breast Cancer No Personal Ovarian Cancer No Treatments None Family Cancers Mother with breast cancer at age 75; Grandmother-maternal with breast cancer at age 70. LOCATION: [facility] BREAST COMPOSITION: There are scattered areas of fibroglandular density. FINDINGS: RIGHT BREAST: FOCAL ASYMMETRY (finding without convex borders usually visible on two orthogonal views), characterized by obscured indeterminate morphology, posterior depth, DIAGNOSTIC CATEGORY 0--INCOMPLETE: NEED ADDITIONAL IMAGING EVALUATION. RECOMMENDATIONS: ADDITIONAL MAMMOGRAPHIC VIEWS REQUIRED: RIGHT BREAST - spot compression ULTRASOUND: RIGHT BREAST PLEASE NOTE: A NORMAL MAMMOGRAM DOES NOT EXCLUDE THE POSSIBILITY OF BREAST CANCER. A CLINICALLY SUSPICIOUS PALPABLE LUMP SHOULD BE BIOPSIED. Dictated by: Marciano Burgos DO on 12/01/2024 at 07:54 Approved by: Marciano Burgos DO on 12/01/2024 at 07:59 Dictated By: Marciano Burgos D.O. Signed By: 12/01/24 0800 DD/ 0759 TD/TT: Roller Checker: HEIDI echo doppler complete Reviewed date:05/23/2025 05:02:03 PM Interpretation: Performing Lab: Notes/Report: Source Facility: [place] [address] [place] [address] Cardiology Report Signed Patient: DEEPA SEARS MR#: [id number] : 1960 Acct:[id number] Age/Sex: 64 / F ADM Date: 05/23/25 Loc: CARD Attending Dr: Daxa Valenzuela M.D. Ordering Physician: Daxa Valenzuela M.D. Date of Service: 05/23/25 Procedure(s): CA echo doppler complete Accession Number(s): [id number] cc: Real Kimball M.D.; Daxa Valenzuela M.D. Patient Name: DEEPA SEARS MR#: [id number] : 1960 Exam Date: 05/23/2025 Ordering Doctor: DR. DAXA VALENZUELA M.D. ECHOCARDIOGRAM REPORT PROCEDURE: CA ECHO DOPPLER COMPLETE INDICATIONS: Chronic combined systolic and diastolic heart failure COMPARISON: None. DESCRIPTION: COMPLETE ECHOCARDIOGRAM Real-time transthoracic echocardiography with 2D, M-mode, spectral and color flow Doppler performed. QUALITY: Technical quality was good. LEFT VENTRICLE: Normal chamber size. Mild concentric left ventricular hypertrophy. LV EF: Global left ventricular systolic function is normal; visually estimated ejection fraction is 55%. Abnormal septal motion; likely related to underlying bundle branch block. DIASTOLIC: Normal diastolic function. ATRIAL SEPTUM: Inadequately seen. LEFT ATRIUM: Normal chamber size. RIGHT ATRIUM: Normal chamber size. RIGHT VENTRICLE: Normal chamber size. Normal right ventricular systolic function. TRICUSPID VALVE: Normal mobility and thickness. No stenosis with trivial regurgitation. No evidence of pulmonary hypertension. RVSP 27mmHg MITRAL VALVE: Normal mobility and thickness. No evidence of mitral valve stenosis. There is no mitral annular calcification. Trivial mitral regurgitation. AORTIC VALVE: Normal trileaflet appearance. No visible sclerosis. Normal leaflet mobility. No evidence of aortic valve stenosis. Trivial aortic regurgitation. AORTIC ROOT: Normal diameter and appearance. PULMONIC VALVE: Normal thickness and mobility. No stenosis. Trivial regurgitation. PERICARDIUM: Anterior free space; trivial effusion versus fat pad. IVC: Collapses with inspiration. Normal size. CONCLUSION: 1. Global left ventricular systolic function is normal; visually estimated ejection fraction is 55% 2. Normal right ventricular size and systolic function 3. Mild left ventricular hypertrophy 4. Normal diastolic function 5. No significant valvular abnormalities 6. Anterior free space; trivial effusion versus fat pad Adult Echocardiography Procedure Report Left Ventricle LVEDD (3.7 - 5.6 cm): 4.07 cm LVESD (2.2 - 4.0 cm): 2.82 cm LVIVS thickness (0.6 - 1.2 cm): 1.33 cm LVPW thickness (0.5 - 1.0 cm): 1.28 cm e': 0.08 m/s E - e': 7.96 LVOT Max Gradient: 2.93 mm[Hg] LVOT Area (cm2): 0.86 m/s Peak Velocity (LVOT): 0.86 m/s Mean Velocity (LVOT): 0.57 m/s LVOT Diameter 2.27 cm Left Ventricular Ejection Fraction: 57.55 % Left Atrium LA Volume Index (2D A2C): 31.05 ml/m2 Left Atrium Systolic Dimension: 4.65 cm Mitral Valve MV E to A Ratio: 0.72 Mitral Valve A-Wave Peak Velocity: 0.86 m/s Mitral Valve E-Wave Peak Velocity: 0.62 m/s Right Ventricle RV Internal Diastolic Dimension: 3.09 cm Aorta AO Root Diam: 3.41 cm Ascending Ao Diam: 3.39 cm Aortic Valve AoV Area (Peak Mark): 2.60 cm2, 2.60 cm2 AoV Area (VTI): 2.49 cm2, 2.49 cm2 Peak Velocity(Antegrade Flow): 1.33 m/s Peak Gradient(Antegrade Flow): 7.06 mm[Hg] Mean Velocity(Antegrade Flow): 0.87 m/s Mean Gradient(Antegrade Flow): 3.58 mm[Hg] Velocity Time Integral: 27.43 cm Tricuspid Valve Peak Velocity (Regurgitant Flow): 2.47 m/s Pulmonic Valve Mean Gradient: 1.18 mm[Hg] Mean Velocity: 0.50 m/s Peak Velocity: 0.72 m/s, 0.97 m/s Peak Gradient: 3.74 mm[Hg], 2.05 mm[Hg] Right Atrium Right Atrium Systolic Pressure: 39.67 ml, 39.67 ml Dictated by: Evelin Rockwell M.D. on 05/23/2025 at 16:37 Approved by: Evelin Rockwell M.D. on 05/23/2025 at 16:41 Dictated By: Evelin Rockwell M.D. Signed By: 05/23/25 1642 DD/ 40 TD/TT: Roller Checker: ANNE chest 2V Reviewed date:10/08/2024 04:35:39 PM Interpretation: Performing Lab: Notes/Report: Source Facility: [place] [id number] XRay Report Signed Patient: DEEPA SEARS MR#: [id number] : 1960 Acct:[id number] Age/Sex: 64 / F ADM Date: 10/07/24 Loc: RAD Attending Dr: Real Kimball M.D. Ordering Physician: Real Kimball M.D. Date of Service: 10/07/24 Procedure(s): XR chest 2V Accession Number(s): [id number] cc: Real Kimball M.D. [place] [address] Patient Name: DEEPA SEARS MRN: [id number] date: 1960 Sex: F Assigned Patient Location: [facility] Current Patient Location: [facility] Accession/Order Number: [id number] Exam Date: 10/07/2024 08:45 Report Date: 10/07/2024 09:43 At the request of: REAL KIMBALL Procedure: XR chest 2V EXAMINATION: XR chest 2V HISTORY: Acute Bronchitis COMPARISON: 12/24/2022 TECHNIQUE: PA and lateral FINDINGS: LUNGS: No significant pulmonary parenchymal abnormalities. VASCULATURE: No increased pulmonary vasculature. PLEURA: No pneumothorax, effusion, or pleural thickening. CARDIAC: No cardiomegaly or cardiac silhouette abnormality. MEDIASTINUM: No visible mass or adenopathy. BONES: No fracture or visible bone lesion. OTHER: Negative. XR/XR chest 2V IMPRESSION: No acute cardiopulmonary process Electronically authenticated by: CALLY CURRAN Date: 10/07/2024 09:43 Dictated By: Cally Curran M.D. Signed By: 10/07/2445 DD/ 2 TD/TT: Roller Checker: Everardo Patel Reviewed date:09/29/2024 06:19:12 PM Interpretation: Performing Lab: Notes/Report: [facility] , White Blood Cells See Below For Report White Blood Cells White Blood Cells Few White Blood Cells Performing Lab: see note LC - [facility] LB Reason For Referral Diagnosis 1 Abnormal findings on diagnostic imaging of other specified body structures (R93.89) Referral Organization [facility] Referring Provider First Name Michel Referring Provider Last Name Jigar Referring Provider [facility] Family [facility] icine Referred Provider Pain Management, TB Referred Provider Specialty Pain Medicin e Referral Priority Routine Diagnosis 1 Abnormal findings on diagnostic imaging of other specified body structures (R93.89) Referral Organization [facility] Referring Provider First Name Michel Referring Provider Last Name Jigar Referring Provider [facility] icine Referred Provider Pain Management, TB Referred Provider Specialty Pain Medicin e Referral Priority Routine Diagnosis 1 Neck pain (M54.2) Referral Organization [facility] Referring Provider First Name Ashlee Referring Provider Last Name Jaime Referring Provider [facility] icine Referred Provider [facility], Physical Therap y Referred Provider Specialty Physical Med icine and Rehabilitation Referral Priority Routine Diagnosis 1 Shoulder impingement (M25.819) Referral Organization [facility] Referring Provider First Name Michel Referring Provider Last Name Jigar Referring Provider [facility] icine Referred Provider [facility] Referred Provider Specialty Orthopedic S urgery Referral Priority Routine Reason DARRYL PLEASE! Diagnosis 1 Abnormal stress test (R94.39) Referral Organization [facility] Referring Provider First Name Michel Referring Provider Last Name Jigar Referring Provider [facility] icine Referred Provider [facility]erred Provider Specialty Cardiology Referral Priority Routine Medications Medication SIG (Take, Route, Frequency, Duration) Notes Start Date End Date Status Liothyronine Sodium 5 MCG TAKE 1 TABLET BY MOUTH EVERY DAY; Duration: 30 Active Leflunomide 20 MG TAKE 1 TABLET BY FABRICE TH EVERY DAY; Duration: 30 Active Ventolin HFA 108 (90 Base) MCG/ACT 2 puff as needed Inhalation every 4 hrs; Duration: 30 days PRN 09/24/2023 Active Levothyroxine Sodium 150 MCG 1 tablet in the morning on an empty stomach Orally Once a day; Duration: 90 days Active Levsin/SL 0.125 MG 1 tablet under the tongue and allow to dissolve as needed Sublingual QID; Duration: 5 days 02/25/2024 Active Albuterol Sulfate (2.5 MG/3ML) 0.083% 3 mL as needed Inhalation every 6 hrs PRN Active Cephalexin 500 MG 2 tabs Orally bid; Duration: 10 days 11/16/2024 Active Omeprazole 40 MG 1 cap Orally Once a day; Duration: 90 days Active Albuterol Sulfate (2.5 MG/3ML) 0.083% 3 mL as needed Inhalation every 6 hrs 09/26/2024 Active Nebulizer - as directed Active Diclofenac Sodium 75 MG 1 tablet as need ed Orally Twice a day; Duration: 30 days 01/14/2024 Active Ondansetron HCl 4 MG 1 tablet Orally vito ry 4 hrs as needed Active Sucralfate 1 GM 1 tablet on an empty stomach Orally AC and HS Active HYDROcodone-Acetaminophen 5-325 MG 1 tablet as needed Orally every 4 hrs as needed Active Protonix 40 MG 1 tablet Orally Ever y Evening; Duration: 30 day(s) 02/15/2024 Active Social History Tobacco Use: Social History Observation Description Date Details (start date - stop date) Former Smoker 01/19/1977 - 02/05/1998 Tobacco Use/Smoking Question Answer Notes Patient is a former smoker When did you start smoking? 01/19/1977 When did you stop smoking? 02/05/1998 How long has it been since you last smoked? > 10 years Additional Findings: Tobacco Non-User Current no n-smoker Alcohol Screen (Audit-C) Question Answer Notes Did you have a drink contain ing alcohol in the past year? Yes How often did you have 6 or more drinks on one occasion in the past year? Monthly or less (1 point) How many drinks did you have on a typical day when you were drinking in the past year? 5 or 6 drinks (2 points) How often did you have a dri nk containing alcohol in the past year? Less than monthly (1 point) Points 4 Interpretation Positive AUDIT-C (Standard) Question Answer Notes Did you have a drink containing alcohol in the p ast year? No Points 0 Interpretation Negative Problems Problem Type SNOMED Code ICD Code Onset Dates Problem Status W/U Status Risk Notes Problem Extrapyramidal movements (310832491) Extrapyramidal and movement disorder, unspecified (G25.9) Active confirmed Problem Hypertension (39289186) Hypertension (I10) Active confirmed Problem Osteoarthritis (124641366) Osteoarthritis (M19.90) Active confirmed Problem Hypothyroidism (09765526) Hypothyroidism (E03.9) Active confirmed Problem Neck pain (06847868) Neck pain (M54.2) Active confirmed Problem Edema (01847791) Edema (R60.9) Active confirmed Problem Arthritis (2235004) Arthritis (M19.90) Active confirmed Problem Eczema (96989832) Eczema (L30.9) Active confirm ed Problem Urinary tract infectious disease (15639498) UTI (urinary tract infection) (N39.0) Active confirmed Problem Lumbar radiculopathy (710957340) Lumbar radiculopathy (M54.16) Active confirmed Problem Arthralgia (08331985) Arthralgia (M25.50) Active confirmed Problem Pain of right knee region (finding) (673337504468351) Knee pain, right (M25.561) Active confirmed Problem Diarrhea (48118499) Diarrhea (R19.7) Active confirmed Problem Acute bronchitis (75331530) Acute bronchitis (J20.9) Active confirmed Problem Well adult (446049648) Well adult (Z00.00) Active confirmed Problem Pyelonephritis (00441754) Pyelonephritis (N12) Active confirmed Problem Right upper quadrant pain (290805397) Right upper quadrant abdominal pain (R10.11) Active confirmed Problem Overweight (307280603) Over weight (E66.3) Active confirmed Problem Ischemic heart disease (335012314) Ischemic heart disease (I25.9) Active confirmed Problem Paresthesia of arm (05660294) Paresthesia of arm (R20.2) Active confirmed Problem Clostridium difficile colitis (235393976) Clostridium difficile colitis (A04.72) Active confirmed Problem Imaging result abnormal (268517830) Abnormal findings on diagnostic imaging of other specified body structures (R93.89) Active confirmed Problem Clostridioides difficile infection (615104344) Clostridioides difficile infection (A49.8) Active confirmed Problem Headache (27552973) Headache, unspecified (R51.9) Active confirmed Problem Low back pain (285441077) Low back pain, unspecified (M54.50) Active confirmed Vital Signs Heart Rate 80 /min 09/22/2024 Temperature 98.0 degrees Fahrenheit 10/03/2024 Oximetry 96 % 09/26/2024 Blood pressure diastolic 82 mm Hg 10/19/2024 Height 64 in 10/19/2024 Blood pressure systolic 150 mm Hg 10/19/2024 Weight 185.0 lbs 10/19/2024 BMI 31.75 kg/m2 10/19/2024 Procedures Procedure Date Ordered Date Performed Result Body Sit e Cardiolyte Stress Test 10/25/2024 N/A Encounters Encounter Location Date Provider Diagnosis [address] [place] [address] 09/26/2024 Michel Hoy Acute bronchitis, unspecified organism J20.9 and Hypertension I10 [address] [address] 06/24/2024 Michel Hoy Lumbar radiculopathy M54.[address] [address] 09/05/2024 Michel Hoy Cough R05.9 ; Acute bronchitis, unspecified organism J20.9 ; Hypothyroidism E03.9 and Arthralgia M25.[address] [address] 09/09/2024 Ashlee Jaime Neck pain M54.2 and Bronchitis J40 [address] [address] 09/22/2024 Michel Hoy Acute bronchitis, unspecified organism J20.9 and Shoulder impingement M25.[address] [address] 10/03/2024 Michel Hoy Acute bronchitis, unspecified organism J20.[address] [address] 10/19/2024 Michel Hoy Shoulder impingement M25.[address] [address] 07/28/2024 Michel Hoy Low back pain, unspecified M54.[address] [address] 08/28/2024 Michel Hoy Abnormal findings on diagnostic imaging of other specified body structures R93.89 and Lumbar radiculopathy M54.[address] [address] 09/12/2024 Ashlee Allen Neck pain M54.2 [facility] [address] [place] [address] 09/22/2024 Michel Hoy [facility] [address] [place] [address] 09/29/2024 Michel Hoy [facility] [address] [place] [address] 09/30/2024 Michel Hoy Bronchitis J40 [facility] [address] [facility] [address] 10/05/2024 Michel Hoy [facility] [address] [facility] [address] 10/06/2024 Michel Hoy Acute bronchitis J20 .9 [facility] [address] [facility] [address] 10/08/2024 Michel Hoy Chronic cough R05.3 and Productive cough R05.8 [facility] [address] [facility] [address] 10/16/2024 Michel Hoy [facility] [address] [facility] [address] 10/25/2024 Michel Hoy Ischemic heart disea se I25.9 [facility] [address] [facility] [address] 10/30/2024 Michel Hoy [facility] [address] [facility] [address] 11/02/2024 Michel Hoy Abnormal stress test R94.39 [facility] [address] [facility] [address] 11/14/2024 Michel Greggy Screening for breast cancer Z12.31 [facility] [address] [facility] [address] 11/16/2024 Michel Hoy [facility] [address] [facility] [address] 11/16/2024 Michel Hoy [facility] [address] [place] [address] 12/01/2024 Michel Kimball Abnormal mammogram R92.8 [facility] [address] [place] [address] 03/07/2025 Michel Kimball Assessments Encounter Date Diagnosis (ICD Code) Assessment Notes Treatment Notes Treatment Clinical Notes Section Notes 06/24/2024 Lumbar radiculopathy (ICD-10 - M54.16) 09/05/2024 Cough (ICD-10 - R05.9) 07/28/2024 Low back pain, unspecified (ICD-10 - M54.50) 08/28/2024 Abnormal findings on diagnostic imaging of other specified body structures (ICD-10 - R93.89) 08/28/2024 Lumbar radiculopathy (ICD-10 - M54.16) 09/12/2024 Neck pain (ICD-10 - M54.2) 09/30/2024 Bronchitis (ICD-10 - J40) 10/06/2024 Acute bronchitis (ICD-10 - J20.9) 10/08/2024 Chronic cough (ICD-10 - R05.3) 10/08/2024 Productive cough (ICD-10 - R05.8) 10/25/2024 Ischemic heart disease (ICD-10 - I25.9) 11/02/2024 Abnormal stress test (ICD-10 - R94.39) 11/14/2024 Screening for breast cancer (ICD-10 - Z12.31) 12/01/2024 Abnormal mammogram (ICD-10 - R92.8) 09/26/2024 Acute bronchitis, unspecified organism (ICD-10 - J20.9) Rest and drink more liquids, especially water. You may use a humidifier or vaporizer to help keep the drainage moist. Vquq-mig-amdmpvy Nasal Saline may help the stuffy and runny nose. Use Ibuprofen and or Tylenol as needed for fever, chills, body aches or pain. Children 5 years old should not be given xvhf-qne-fumubsr cough and cold medications such as guaifenesin and dextromethorphan. If you're over age 5, you may try nwgq-iwb-qscelgi cold medications such as guaifenesin and dextromethorphan, or multi-symptom cold reliever such as Dayquil to help reduce the symptoms. Antibiotics have been prescribed. You should take these until completed and follow the directions. Antibiotics can sometimes cause upset stomach, and in rare cases, serious allergic reactions or serious gastrointestinal problems. If you start having severe abdominal pain, severe vomiting, or bloody diarrhea, you should be reevaluated by your physician or urgent care immediately. Follow up with your Primary Care Provider or return to clinic if symptoms do not improve within 3-5 days. If you develop severe symptoms such as shortness of breath, repeated vomiting, coughing up blood, or chest pain you should go to the emergency room or call 911 09/26/2024 Hypertension (ICD-10 - I10) 10/03/2024 Acute bronchitis, unspecified organism (ICD-10 - J20.9) Rest and drink more liquids, especially water. You may use a humidifier or vaporizer to help keep the drainage moist. Ezwy-uee-farxutr Nasal Saline may help the stuffy and runny nose. Use Ibuprofen and or Tylenol as needed for fever, chills, body aches or pain. Children 5 years old should not be given cywd-bdw-miwubmv cough and cold medications such as guaifenesin and dextromethorphan. If you're over age 5, you may try hsyx-xbd-djtpmwn cold medications such as guaifenesin and dextromethorphan, or multi-symptom cold reliever such as Dayquil to help reduce the symptoms. Antibiotics have been prescribed. You should take these until completed and follow the directions. Antibiotics can sometimes cause upset stomach, and in rare cases, serious allergic reactions or serious gastrointestinal problems. If you start having severe abdominal pain, severe vomiting, or bloody diarrhea, you should be reevaluated by your physician or urgent care immediately. Follow up with your Primary Care Provider or return to clinic if symptoms do not improve within 3-5 days. If you develop severe symptoms such as shortness of breath, repeated vomiting, coughing up blood, or chest pain you should go to the emergency room or call 911 10/19/2024 Shoulder impingement (ICD-10 - M25.819) 09/09/2024 Neck pain (ICD-10 - M54.2) 09/09/2024 Bronchitis (ICD-10 - J40) 09/22/2024 Acute bronchitis, unspecified organism (ICD-10 - J20.9) Rest and drink more liquids, especially water. You may use a humidifier or vaporizer to help keep the drainage moist. Vhez-qxx-lcbbpne Nasal Saline may help the stuffy and runny nose. Use Ibuprofen and or Tylenol as needed for fever, chills, body aches or pain. Children 5 years old should not be given uyjv-hhy-ygfrlji cough and cold medications such as guaifenesin and dextromethorphan. If you're over age 5, you may try qutu-ucn-skkzaxc cold medications such as guaifenesin and dextromethorphan, or multi-symptom cold reliever such as Dayquil to help reduce the symptoms. Antibiotics have been prescribed. You should take these until completed and follow the directions. Antibiotics can sometimes cause upset stomach, and in rare cases, serious allergic reactions or serious gastrointestinal problems. If you start having severe abdominal pain, severe vomiting, or bloody diarrhea, you should be reevaluated by your physician or urgent care immediately. Follow up with your Primary Care Provider or return to clinic if symptoms do not improve within 3-5 days. If you develop severe symptoms such as shortness of breath, repeated vomiting, coughing up blood, or chest pain you should go to the emergency room or call 911 09/22/2024 Shoulder impingement (ICD-10 - M25.819) 09/05/2024 Acute bronchitis, unspecified organism (ICD-10 - J20.9) Rest and drink more liquids, especially water. You may use a humidifier or vaporizer to help keep the drainage moist. Vxzg-idf-arrzpye Nasal Saline may help the stuffy and runny nose. Use Ibuprofen and or Tylenol as needed for fever, chills, body aches or pain. Children 5 years old should not be given mqmj-mjt-tzcylvf cough and cold medications such as guaifenesin and dextromethorphan. If you're over age 5, you may try llye-ips-tjrxxqb cold medications such as guaifenesin and dextromethorphan, or multi-symptom cold reliever such as Dayquil to help reduce the symptoms. Antibiotics have been prescribed. You should take these until completed and follow the directions. Antibiotics can sometimes cause upset stomach, and in rare cases, serious allergic reactions or serious gastrointestinal problems. If you start having severe abdominal pain, severe vomiting, or bloody diarrhea, you should be reevaluated by your physician or urgent care immediately. Follow up with your Primary Care Provider or return to clinic if symptoms do not improve within 3-5 days. If you develop severe symptoms such as shortness of breath, repeated vomiting, coughing up blood, or chest pain you should go to the emergency room or call 911 09/05/2024 Hypothyroidism (ICD-10 - E03.9) 09/05/2024 Arthralgia (ICD-10 - M25.50) Plan Of Treatment Pending Test Test Name Order Date MRI : Lumbar without contrast 07/28/2024 CULTURE, STOOL 02/19/2024 IGE, IMMUNOGLOBULIN (TOTAL) 10/08/2024 IGG, IGA and IGM, TOTAL (IMMUNOGLOBULINS ) 10/08/2024 XR Chest PA and Lateral (Routine CXR) * 10/06/2024 XR Chest PA and Lateral (Routine CXR) * 12/24/2022 XR Chest PA and Lateral (Routine CXR) * 10/23/2023 XR Chest PA and Lateral (Routine CXR) * 12/16/2022 CT Abdomen and Pelvis w/contrast * 02/11 NUC MED Hida with Ejection Fraction * NUC MED [facility]ida with Ejection Fraction * RHEUMATOID PANEL 10/23/2023 RHEUMATOID PANEL 09/05/2024 RHEUMATOID PANEL 05/18/2023 C DIFF TOX PCR STOOL 02/19/2024 CMP - Comprehensive Metabolic Panel 09/2024 CMP - Comprehensive Metabolic Panel 09/09 Cardiolyte Stress Test 10/25/2024 CBC W/AUTO DIFF 10/06/2024 MAMM SCREEN BILAT MAGGI 3D GLOBAL* 2024 CBC AUTO DIFF 10/08/2024 CBC AUTO DIFF 10/23/2023 Covid-19 PCR ([facility]VD[facility]) 08/20/2023 CULTURE SPUTUM 09/26/2024 GLYCOHEMOGLOBIN A1C 10/23/2023 GLYCOHEMOGLOBIN A1C 05/18/2023 LIPID PROFILE 10/23/2023 SED RATE WESTERGREN 09/05/2024 SPUTUM GRAM STAIN 09/26/2024 THYROID PROFILE WITH TSH 09/05/2024 THYROID PROFILE WITH TSH 05/18/2023 XR LSPINE MIN 4 VIEWS 06/24/2024 XR SHOULDER RT 2V or > 09/22/2024 THYROID PANEL (T4/TSH/FREE T3) 4 BI US BREAST COMPLETE RIGHT 12/01/2024 US abdomen complete 02/09/2024 SHAHID DIGITAL DIAGNOSTIC UNILATERAL RIGHT 12/01/2024 MRI SHOULDER RIGHT W CONTRAST 09/22/2024 Gram Stain w/Sputum Cult Rflx 10/08/2024 Insurance Providers Payer Name Payer Address Payer Phone Subscriber Number Group Number Insured Name Patient Relationship to Insured Coverage Start Date Coverage End Date [facility] [address] [place] [phone] [id number] Luis Sears Spouse - patient is the spouse of the insured 4 Medications Administered Medication Instructions Date of Administration Dosage Notes Ceftriaxone 1 gram 10/03/2024 1 g Dexamethasone, 4mg/mL 10/03/2024 12 mg Kenalog-40 01/02/2023 120 mg 120 Ketorolac Tromethamine 06/24/2024 60 mg 60 Triamcinolone 40 mg/ml 06/24/2024 120 mg Triamcinolone 40 mg/ml 09/26/2024 120 mg Medical (General) History Medical History History ICD Code Over weight E66.3 Acute bronchitis J20.9 Well adult Z00.00 Pyelonephritis N12 Low back pain, unspecified M54.50 Extrapyramidal and movement disorder, 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
--- OUTSIDE RECORDS SUMMARY | 2025-06-08 12:05 | XMS_ITS | Encounter Summary ---
Author Organization [email or web address] Address [id number] [address] [place] [address] Care Team Providers Care Post Production Assistant Name Role Phone Tano Kimball MD Primary Care Provider [phone] Reason for Visit * Reason Comments Med Refill Encounter Details Date Type Department Care Team ([facility] st Contact Info) Description 09/10/2024 Refill [facility] [address] [phone] Lee Quiles DO [address] [place] [address] Social History Tobacco Use Types Packs/Day Years [...] 06/13/2025 1:15 PM EDT Appointment [facility] [address] [place] [phone] Arrived documented as of this encounter Visit Diagnoses Not on filedocumented in this encounter Care Teams Post Production Assistant Relationship Specialty Start Date End Date Tano Kimball MD PCP - General Family Medicine 09/22/18 documented as of this encounter
--- OUTSIDE RECORDS SUMMARY | 2025-06-08 12:05 | XMS_ITS | Clinical Summary ---
Author Organization [facility] Address [address] [place] [address] Care Team Providers Care Credit Control Officer Name Role Phone Tano Kimball MD Primary Care Provider [phone] Allergies Active Allergy Reactions Criticality Noted Date Comments Ciprofloxacin Unknown 12/21/2024 Fluconazole Shortness of breath High 12/21/2024 Losartan Cough 02/13/2025 Penicillins Swelling High 07/04/2021 Spironolactone Cough Medium 02/13/2025 And sneezing Sulfa (Sulfonamide Antibiotics) Swelling High 10/11/2018 Lips swell Medications leflunomide (Arava) 20 mg tablet Take 20 mg by mouth in the morning. Active levothyroxine (Synthroid, Levoxyl) 150 mcg tablet TAKE 1 TABLET BY MOUTH EVERY DAY IN THE MORNING ON AN EMPTY STOMACH Active liothyronine (Cytomel) 5 mcg tablet Take 5 mcg by mouth in the morning. Active loratadine (Claritin) 10 mg tablet Take 10 mg by mouth in the morning. Active aspirin 81 mg chewable tabletIndications :Abnormal echocardiogram,Ab normal stress test,Coronary artery disease involving [place] coronary artery of [place] heart without angina pectoris Chew 1 tablet (81 mg) in the morning. 90 tablet 3 5 12/08/19 26 Active atorvastatin (Lipitor) 40 mg tabletIndications :Abnormal echocardiogram,Ab normal stress test,Coronary artery disease involving [place] coronary artery of [place] heart without angina pectoris Take 1 tablet (40 mg) by mouth in the morning. 90 tablet 3 5 12/08/19 26 Active empagliflozin (Jardiance) 10 mgIndications:Sys tolic heart failure, unspecified HF chronicity (CMS/HCC) Take 1 tablet (10 mg) by mouth once daily as directed. 90 tablet 5 12/22/19 26 Active clopidogrel (Plavix) 75 mg tabletIndications :Coronary artery disease due to lipid rich plaque Take 1 tablet (75 mg) by mouth in the morning. 90 tablet 5 02/04/20 26 Active sacubitril-valsar maurice (Entresto) 24-26 mg tabletIndications :Chronic combined systolic and diastolic heart failure (CMS/HCC) Take 1 tablet by mouth two times daily. 60 tablet 5 02/09/20 26 Active pantoprazole (Protonix) 40 mg EC tabletIndications :Gastroesophageal reflux disease, unspecified whether esophagitis present Take 1 tablet (40 mg) by mouth before breakfast. Do not crush, chew, or split. 30 tablet 5 02/14/20 26 Active valsartan (Diovan) 40 mg tabletIndications :Congestive heart failure, unspecified HF chronicity, unspecified heart failure type (CMS/HCC) Take 1 tablet (40 mg) by mouth in the morning. 90 tablet 5 02/21/20 Active valsartan (Diovan) 80 mg tabletIndications :Essential hypertension Take 1 tablet (80 mg) by mouth in the morning. 90 tablet 5 03/15/20 26 Active metoprolol tartrate (Lopressor) 50 mg tabletIndications :Congestive heart failure, unspecified HF chronicity, unspecified heart failure type (CMS/HCC) Take 1 tablet (50 mg) by mouth in the morning. Change from 2 25 mg tabs 1 50 mg tab daily 90 tablet 5 03/27/20 26 Active eplerenone (Inspra) 25 mg tabletIndications :Essential hypertension Take 1 tablet (25 mg) by mouth in the morning. 90 tablet 5 04/03/20 26 Active metoprolol succinate XL (Toprol-XL) 50 mg 24 hr tabletIndications :Congestive heart failure, unspecified HF chronicity, unspecified heart failure type (CMS/HCC) Take 1 tablet (50 mg) by mouth once daily as directed. Do not crush or chew. 90 tablet 3 04/07/20 26 Active Active Problems Problem Noted Date Diagnosed Date Chronic combined systolic and diastolic heart fa ilure 02/13/2025 Other chest pain 02/13/2025 Pure hypercholesterolemia 02/13/2025 Abnormal findings on diagnos tic imaging of other specified body structures 12/21/2024 Acute bronchitis 12/21/2024 Arthralgia 12/21/2024 Clostridioides difficile infection 12/21/2024 Clostridium difficile colitis 12/21/2024 Diarrhea 12/21/2024 Eczema 12/21/2024 Edema 12/21/2024 Extrapyramidal and movement disorder, unspecifie d 12/21/2024 Hypertension 12/21/2024 Hypothyroidism 12/21/2024 Ischemic heart disease 12/21/2024 Low back pain 12/21/2024 Lumbar radiculopathy 12/21/2024 Headache 12/21/2024 Arthritis 12/21/2024 Overweight 12/21/2024 Pain in right knee 12/21/2024 Paresthesia of arm 12/21/2024 Right upper quadrant pain 12/21/2024 Urinary tract infectious disease 12/21/2024 Coronary artery disease due to lipid rich plaque 12/21/2024 Abnormal echocardiogram 11/21/2024 Abnormal EKG 11/11/2024 Abnormal stress test 11/11/2024 Class 1 obesity due to exces s calories without serious comorbidity with body mass index (BMI) of 32.0 to 32.9 in adult 11/11/2024 Former smoker 11/11/2024 Encounters Date Type Department Care Team Description 06/04/2025 Results Follow-Up [address] [phone] Nilo Valenzuela MD Complete Echo (TTE) w/wo Imaging Agent, Strain, 3D, Bubble Study 05/23/2025 Orders Only [address] [address] Autumn Baeza MD 05/16/2025 Results Follow-Up [facility] [address] [place] [address] Nilo Valenzuela MD Basic metabolic panel 05/05/2025 Orders Only [facility] [address] [place] [facility] [place] [address] Autumn Baeza MD 04/07/2025 Refill [facility] [address] [place] [facility] [place] [address] Angelic Yoder MA Congestive heart failure, unspecified HF chronicity, unspecified heart failure type (CMS/HCC) 04/07/2025 Orders Only [facility] [address] [place] [facility] [place] [address] Angelic Yoder MA 04/03/2025 Telephone [facility] [address] [place] [facility] [place] [address] Angelic Yoder MA 03/28/2025 Refill [facility] [address] [place] [address] Viv Garcia MD Congestive heart failure, unspecified HF chronicity, unspecified heart failure type (CMS/HCC) 03/25/2025 Refill [facility] [address] [place] [place] [address] Viv Garcia MD Congestive heart failure, unspecified HF chronicity, unspecified heart failure type (CMS/HCC) (Primary Dx) 03/23/2025 Telephone [facility] [address] [place] [facility] [place] [address] Sandy Bliss MA 03/22/2025 Telephone [facility] [address] [place] [facility] [place] [address] Angelic Yoder MA 03/15/2025 Orders Only [facility] [address] [place] [facility] [place] [address] Alise Wright MA Essential hypertension (Primary Dx) 03/15/2025 Telephone [facility] [address] [place] [facility] [place] [address] Angelic Yoder MA Med Refill 03/15/[address] [facility] [address] [place] [facility] [place] [address] Angelic Yoder MA from Last 3 Months Immunizations Immunization Administration Dates Next Due Influenza, injectable, MDCK, quadrivalent 06/26/2019 Influenza, injectable, quadr ivalent, preservative free 06/17/2023,06/14/2022,06/21/2021,2019,07/01/2017,06/13/2016 Influenza, seasonal, injecta ble, preservative free, 6 moonths & older 06/13/2015 Pfizer SARS-CoV-2 Vaccination 06/21/2021 Pneumococcal Conjugate PCV 13 06/13/2016 Pneumococcal Conjugate PCV 20 06/27/2022 Family History Medical History Relation Name Comments pacemaker Maternal Grandfather Heart attack Maternal Grandmother Hypertension Maternal Grandmother Coronary artery disease Mother Relation Name Status Comments Brother Alive Father Alive Maternal Grandfather Maternal Grandmother Mother Social History Tobacco Use Types Packs/Day Years Used Date Smoking Tobacco: Former Cigarettes Q uit: 1997 Smokeless Tobacco: Never Tobacco Cessation:Counseling Given: Not [...] Heterosexual or Straight 10/2024 7:16 AM EDT Last Filed Vital Signs Vital Sign Reading Time Taken Comments Blood Pressure 138/80 02/13/2025 1:23 PM EDT Pulse 71 02/13/2025 1:23 PM EDT Temperature - - Respiratory Rate 21 02/03/2025 3:30 PM EDT Oxygen Saturation 95% 02/13/2025 1:23 PM EDT Inhaled Oxygen Concentration - - Weight 90.7 kg (200 lb) 02/13/2025 1:23 PM EDT Height 162.6 cm (5' 4 ) 02/13/2025 1:23 PM EDT Body Mass Index 34.33 02/13/2025 1:23 PM EDT Plan of Treatment Upcoming Encounters Date Type Department Care Team (Late st Contact Info) Description 07/05/2025 2:20 PM EDT Office Visit [facility] [address] [place] [address] Nilo Valenzuela MD [address] [place] [address] Health Maintenance Due Date Last Done Comments CT Colonography 1960 FIT-DNA 1960 FIT 1960 FOBT 1960 Medicare Initial Physical (IPPE) 1960 Sigmoidoscopy 1960 Depression Screening 1972 Pap Smear 1981 Adult Tetanus 1982 Cervical Cancer Screening 1990 HPV/Cotest 1990 Zoster Vaccines (1 of 2) 2010 COVID-19 Vaccine ( season) 2025 07/01/2024, 06/17/2023, 01/13/2022, Additional history exists Influenza Vaccine (#1) 2025 , 06/17/2023, 06/14/2022, Additional history exists Mammogram 12/20/2026 12/20/2024, 11/30/2024 Colonoscopy 11/04/2033 11/05/2023, 11/05/2023 Colorectal Cancer Screening 11/04/2033 Pneumococcal Vaccine: Pediatrics (0 to 5 Years) and At-Risk Patients (6 to 64 Years) Completed 06/27/2022, 06/13/2016 HIB Vaccines Aged Out No longer eligi ble based on patient's age to complete this topic HPV Vaccines Aged Out No longer eligi ble based on patient's age to complete this topic IPV Vaccines Aged Out No longer eligi ble based on patient's age to complete this topic Meningococcal B Vaccine Aged Out No l onger eligible based on patient's age to complete this topic Meningococcal Vaccine Aged Out No nafisa nat eligible based on patient's age to complete this topic Rotavirus Vaccines Aged Out No longer eligible based on patient's age to complete this topic Medical Devices Implanted Type Area Vp Of Technology Device Identifier Shelf Expiration Date Model / Serial / Lot Stent,Jaison Mr 3.50 X 16 - [id number] Implanted:Qty : 1 on 02/03/2025 by Slick Her MD at [facility] Drug Eluting Stent Left: Heart [employer] [id number] 05/24/2026 [id number] / / [id number] Procedures Procedure Name Priority Date/Time Associated Diagnosis Comments COMPLETE TRANSTHORACIC ECHO (TTE) W/WO IMAGING AGENT, STRAIN, 3D, BUBBLE STUDY Routine 05/23/2025 5:02 PM EDT BASIC METABOLIC PANEL Routine 05/05/2025 9:23 AM EDT from Last 3 Months Results * Complete Echo (TTE) w/wo Imaging Agent, Strain, 3D, Bubble Study (05/23/2025 5:02 PM EDT) Anatomical Region Laterality Modality Ultrasound Historical Provider CV ECHO PROCEDURES Final Result * Basic metabolic panel (05/05/2025 9:23 AM EDT) Blood Venous blood specimen / Unknown Historical Provider LAB BLOOD ORDERABLES Zahira l Result from Last 3 Months Insurance [facility] Care Teams Credit Control Officer Relationship Specialty Start Date End Date Tano Kimball MD [address] [place] [address] PCP - General 03/11/24
--- NOTE | 2025-06-08 12:08 | MR_ITS ---
The [address] [address] Patient Name: DEEPA ZAYAS MRN: [id number] date: 1960 Sex: F Assigned Patient Location: MRI Current Patient Location: MRI Accession/Order Number: [id number] Exam Date: 06/08/2025 12:55 Report Date: 06/08/2025 15:08 At the request of: RAYMOND WELSH NP Procedure: MR shoulder RT wo con MR RIGHT SHOULDER CLINICAL INFORMATION: Shoulder pain.. COMPARISON: 10/14/2024. PROCEDURE: Axial, oblique coronal, and oblique sagittal long TR images of the shoulder were obtained. FINDINGS: ROTATOR CUFF AND ASSOCIATED STRUCTURES Biceps Tendon: There is increased signal intensity along the proximal long head of biceps tendon there is fluid along the tendon sheath suggesting tenosynovitis. Rotator cuff: There is a full-thickness tear of the supraspinatus tendon similar to the prior exam. The majority of the tendon is retracted approximately 3 cm medially. There is evidence of previous soft tissue anchoring suggesting a recurrent tear. There is a full-thickness tear of the infraspinatus tendon without significant medial retraction. The teres minor and subscapularis tendons are intact. Musculature: There is fatty atrophy of the infraspinatus and supraspinatus musculature. Bursa: Fluid is noted in the subacromial bursa. OSSEOUS STRUCTURES Acromioclavicular joint: There are moderate degenerative changes of the acromioclavicular joint. A type 3 acromion configuration is noted. There is lateral acromial downsloping. Bones: No Hill-Sachs, reverse Hill-Sachs, or bony Bankart lesions are seen. There are no fractures or regions of abnormal bone marrow signal intensity. GLENOHUMERAL JOINT Joint: There is a moderate joint effusion. Cartilage: No focal hyaline cartilage defects are noted. Labrum: There is increased signal intensity within the superior labrum possibly relating to a SLAP tear. Other support structures: No capsular or ligamentous abnormality is seen. MR/MR shoulder RT wo con IMPRESSION: 1. There is a full-thickness tear of the supraspinatus tendon similar to the prior exam. The majority of the tendon is retracted approximately 3 cm medially. There is evidence of previous soft tissue anchoring suggesting a recurrent tear. 2. There is a full-thickness tear of the infraspinatus tendon without significant medial retraction. 3. There is increased signal intensity along the proximal long head of biceps tendon there is fluid along the tendon sheath suggesting tenosynovitis. 4. There is increased signal intensity within the superior labrum possibly relating to a SLAP tear. 5. There are moderate degenerative changes of the acromioclavicular joint. A type 3 acromion configuration is noted. There is lateral acromial downsloping. Correlation with clinical signs of rotator cuff impingement is recommended. Impression dictated by: Alcides Shell M.D. 06/08/2025 3:08 PM Dictation Location: [facility] [employer] [employer] Electronically authenticated by: [id number] Y Date: 06/08/2025 15:08
--- OUTSIDE RECORDS SUMMARY | 2025-06-08 18:42 | XMS_ITS | CCD ---
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 Name Role Phone AVERY MCKNIGHT Attending Unavailable [...] HOY ., DR NOBLE Primary Care Unavailable [place], DR CALLY [employer] Unavailable HOY ., [...] Unavailable Real Kimball MD Primary Care Provider [phone] Real Kimball MD Primary Care Provider [phone] REAL KIMBALL Referring Unavailable REAL KIMBALL Primary Care Unavailable Unavailable Primary Care Provider UnavailReal Liang MD Primary Care Provider [phone] RAYMOND DAVILA Referring Unavailable DAVILARAYMOND ESQUEDA Attending Unavailable HOY, REAL M Primary Care Unavailable DAVILA, RAYMOND Romero Admitting Unavailable HOY, REAL M Referring Unavailable HOY, REAL M Primary Care Unavailable DAVILA, RAYMOND Romero Referring Unavailable HOY, REAL M Primary Care Unavailable FELIPE FERRARA Referring Unavailgeorgi e MICHELE, REAL M Primary Care Unavailable DAVILA, RAYMOND Romero Referring Unavailable HOY, REAL M Primary Care Unavailable DAVILA, RAYMOND Romero Referring Unavailable HOY, REAL M Primary Care Unavailable DAVILA, RAYMOND Romero Referring Unavailable HOY, REAL M Primary Care Unavailable DAVILA, RAYMOND Romero Referring Unavailable HOY, REAL M Primary Care Unavailable FELIPE FERRARA Attending Unavailable FELIPE FERRARA Admitting Unavailable FELIPE FERRARA Referring Unavailable DAXA LANE Attending Unavailable CHUCK LUCAS Attending Unavailable DAXA LANE Attending Unavailable FELIPE FERRARA Referring Unavailable NGUYỄN ANTONIO Referring Unavailable DAXA LANE Attending Unavailable DAXA LANE Admitting Unavailable Allergies Allergy Classification Reported Allergen(s) Allergy Type Date of Onset Reaction(s) Facility (1 source) Penicillin Drug Allergy [facility] Repository (1 source) Sulfonamides (Antibiotic) Drug allergy (disorder) [facility] (11 sources) Penicillins; Translations: [PENICILLINS] Propensity to adverse reactions to drug 1 Swelling, Angioedema [facility] (8 sources) sulfabenzamide; Translations: [SULFABENZAMIDE] Drug [facility] Sulfonamides (Antibiotic); Translations: [SULFA (SULFONAMIDE ANTIBIOTICS)] Propensity to adverse reactions to drug 9 Angioedema [facility] (1 source) Ciprofloxacin; Translations: [CIPROFLOXACIN] Drug Allergy 5 [facility] (1 source) Fluconazole; Translations: [FLUCONAZOLE] Drug Allergy 5 [facility] Medications Current Medications Medication Drug [...] tablet by mouth daily Active lactobacillus acidophilus [id number] unt / pectin 100 mg oral tablet [...] by mouth once daily Multiple Vitamins-Minerals (THERAPEUTIC MULTIVITAMIN-HISTOLOGIST ALS) tablet Take 1 tablet by mouth [...] and at bedtime. 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] Onset: 12-21-2024 Chronic Disorders of lipid metabolism (4 sources) Pure hypercholesterolemia , unspecified; Translations: [Mixed hyperlipidemia] Onset: 11-07-2024 Chronic Esophageal disorders (2 sources) Gastro-esophageal reflux disease without esophagitis; Translations: [Gastro-esophageal reflux disease without esophagitis] Onset: 02-13-2025 Chronic Essential hypertension (2 sources) Essential (primary) hypertension; Translations: [Essential (primary) hypertension] Onset: 12-21-2024 Chronic Hypertension with complications and secondary hypertension (2 sources) Hypertensive heart disease with heart failure; Translations: [Hypertensive heart disease with heart failure] Onset: 12-21-2024 Chronic Other nervous system disorders (1 source) Postoperative [...] Problem Classification Problem Date Documented Date Episodic/Chronic Nonspecific chest pain (2 sources) Other chest pain; Translations: [Other chest pain] Onset: 02-13-2025 Episodic Other aftercare (1 source) 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; Translations: [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] Onset: 04-15-2022 Episodic Other [...] for malignant neoplasm of breast; Translations: [Abnormal result of other cardiovascular function study] Onset: 10-20-2022 Episodic Residual codes; unclassified (1 [...] Value Interpretation Reference Range Facility Orders Onlyon 05-23-2025 Orders Only [id number] Deepa Sears 1960 F Date Provider Department Center 05/23/2025 [id number], HISTORICAL NI Anne Family History Problem Relation Age of Onset Coronary artery disease Mother Heart attack Maternal Grandmother Hypertension Maternal Grandmother Other Maternal Grandfather Family Status - Relation Status Age at Mother Father Alive Brother Alive Maternal Grandmother Maternal Grandfather Normal [facility] Orders Onlyon 05-05-2025 Orders Only [id number] Deepa Sears 1960 F Date Provider Department Center 05/05/2025 [id number], HISTORICAL NI [facility] Family History Problem Relation Age of Onset Coronary artery disease Mother Heart attack Maternal Grandmother Hypertension Maternal Grandmother Other Maternal Grandfather Family Status - Relation Status Age at Mother Father Alive Brother Alive Maternal Grandmother Maternal Grandfather Normal [facility] 36on 04-03-2025 36 Regarding lab results from 03/07/2025: MD [...] her aware. Lab order emailed to her. [facility] 36on 03-23-2025 36 MD Deepa Franco MA BMP after starting Entresto look good continue current management Advised patient of Dr. Lane's findings. Patient verbalized understanding. [facility] Orders Onlyon 03-15-2025 Orders Only [id number] Deepa Sears 1960 F Date Provider Department Center 03/15/2025 ANIA HASTINGS Family History Problem Relation Age of Onset Coronary artery disease Mother Heart attack Maternal Grandmother Hypertension Maternal Grandmother Other Maternal Grandfather Family Status - Relation Status Age at Mother Father Alive Brother Alive Maternal Grandmother Maternal Grandfather [facility] 36on 03-06-2025 36 This report has been cancelled. [facility] Office Visiton 02-13-2025 Follow-up visit [id number] Deepa Sears 1960 Provider Department Center 02/13/2025 [id number] LANE Family History Problem Relation Age of Onset Coronary artery disease Mother Heart attack Maternal Grandmother Hypertension Maternal Grandmother Other Maternal Grandfather Family Status - Relation Status Age at Mother Father Alive Brother Alive Maternal Grandmother Maternal Grandfather Level of Service:43508 IN OFFICE/OUTPATIENT ESTABLISHED MOD MDM 30 MIN Reason for Visit and Comments: Follow up PCI [Other] Hypertension [567279] Coronary Artery Disease [187] [facility] Vic 02-03-2025 ANES ---- Attestation signed by Felipe Ferrara MD at 02/03/2025 8:19 AM I personally spoke with and examined Mrs. Sears and agree with above. ---- Patient: Deepa Sears Procedure Information Date/Time: 02/03/25829 Procedure: Percutaneous coronary intervention - PC APPROVED Location: [facility] / [facility] (Cath) Providers: Felipe Ferrara MD [...] discussed with attending. Additional Equipment Requests Normal [facility] HPon 02-03-2025 HP ---- Attestation signed [...] rate 16, SpO2 (more content not included)... [facility] NURSNOTEon 02-03-2025 NURSNOTE RN educated pt on [...] off of unit with all of belongings. [facility] 36on 02-01-2025 36 Patient will wait until after PCI on 02/03/2025 to have COVID vaccination. Heydi Lozano MA [facility] 36 Patient left voicemail requesting a call back- No details given. Heydi Lozano MA [facility] BASIC METABOLIC PANELon 01-06 Anion gap [Moles/Vol] 9 mmol/L Normal 5-15 [facility] Comment on above: Performed By: #### B MP #### [facility] [address] [place] [address] VIR Calcium [Mass/Vol] 9.7 mg/dL Normal 8.5-10.5 [facility] Comment on above: Performed By: #### B MP #### [facility] [address] [place] [address] VIR Chloride [Moles/Vol] 101 mmol/L Normal 98-109 [facility] Comment on above: Performed By: #### B MP #### [facility] [address] [place] [address] VIR CO2 [Moles/Vol] 29 mmol/L Normal 22-32 [facility] Comment on above: Performed By: #### B MP #### [facility] [address] [place] [address] VIR Creatinine [Mass/Vol] 0.62 mg/dL Normal 0.40-1.00 [facility] Comment on above: Result Comment: METH OD TRACEABLE TO IDMS STANDARD Performed By: #### B MP #### [facility] [address] [place] [address] VIR EGFR (CKD-EPI) NON-RACE DEPENDENT >^90 Normal >=60 [facility] Comment on above: Result Comment: Repo rted eGFR is based on the CKD-EPI 2020 equation that does not use a race coefficient. Performed By: #### B MP #### [facility] [address] [place] [address] VIR Glucose [Mass/Vol] 100 mg/dL High 65-99 [facility] Comment on above: Performed By: #### B MP #### [facility] [address] [place] [address] VIR Potassium [Moles/Vol] 4.3 mmol/L Normal 3.5-5.0 [facility] Comment on above: Performed By: #### B MP #### [facility] [address] [place] [address] VIR Sodium [Moles/Vol] 139 mmol/L Normal 134-146 [facility] Comment on above: Performed By: #### B MP #### [facility] [address] [place] [address] VIR Urea nitrogen [Mass/Vol] 11 mg/dL Normal 5-27 [facility] Comment on above: Performed By: #### B MP #### [facility] [address] [place] [address] VIR CBC WITH AUTO DIFFERENTIALon 01-27-2025 BASOPHILS ABSOLUTE COUNT (10*3/UL) BY AUTOMATED COUNT 0.1 10*3/uL Normal 0.0-0.2 [facility] Comment on above: Performed By: #### C BCA #### [facility] [address] [place] [address] VIR BASOPHILS RELATIVE PERCENT BY AUTOMATED COUNT 1.4 % Normal [facility] Comment on above: Performed By: #### C BCA #### [facility] [address] [place] [address] VIR CELLAVISION DIFFERENTIAL TYPE AUTOMATED DIFFERENTIAL Normal [facility] Comment on above: Performed By: #### C BCA #### [facility] [address] [place] [address] VIR Eosinophils (Bld) [#/Vol] 0.2 10*3/uL Normal 0.0-0.4 [facility] Comment on above: Performed By: #### C BCA #### [facility] [address] [place] [address] VIR EOSINOPHILS RELATIVE PERCENT BY AUTOMATED COUNT 4.9 % Normal [facility] Comment on above: Performed By: #### C BCA #### [facility] [address] [place] [address] VIR Erythrocyte distribution width (RBC) [Ratio] 12.8 % Normal 11.5-15 [facility] Comment on above: Performed By: #### C BCA #### [facility] [address] [place] [address] VIR Hematocrit (Bld) [Volume fraction] 42.5 % Normal 35-47 [facility] Comment on above: Performed By: #### C BCA #### [facility] [address] [place] [address] VIR Hemoglobin (Bld) [Mass/Vol] 14.2 g/dL Normal 11.7-15.5 [facility] Comment on above: Performed By: #### C BCA #### [facility] [address] [place] [address] VIR LYMPHOCYTES ABSOLUTE COUNT (10*3/UL) BY AUTOMATED COUNT 1.7 10*3/uL Normal 1.0-3.5 [facility] Comment on above: Performed By: #### C BCA #### [facility] [address] [place] [address] VIR LYMPHOCYTES RELATIVE PERCENT BY AUTOMATED COUNT 38.0 % Normal [facility] Comment on above: Performed By: #### C BCA #### [facility] [address] [place] [address] VIR MCH (RBC) [Entitic mass] 30.5 pg Normal 27-34 [facility] Comment on above: Performed By: #### C BCA #### [facility] [address] [place] [address] VIR MCHC (RBC) [Mass/Vol] 33.5 g/dL Normal 32-36 [facility] Comment on above: Performed By: #### C BCA #### [facility] [address] [place] [address] VIR MCV (RBC) [Entitic vol] 91 fL Normal 80-100 [facility] Comment on above: Performed By: #### C BCA #### [facility] [address] [place] [address] VIR MONOCYTES ABSOLUTE COUNT (10*3/UL) BY AUTOMATED COUNT 0.5 10*3/uL Normal 0.0-0.9 [facility] Comment on above: Performed By: #### C BCA #### [facility] [address] [place] [address] VIR MONOCYTES RELATIVE PERCENT BY AUTOMATED COUNT 10.3 % Normal [facility] Comment on above: Performed By: #### C BCA #### [facility] [address] [place] [address] VIR NEUTROPHILS ABSOLUTE COUNT BY AUTOMATED COUNT 2.1 10*3/uL Normal 1.5-6.6 [facility] Comment on above: Performed By: #### C BCA #### [facility] [address] [place] [address] VIR NEUTROPHILS RELATIVE PERCENT BY AUTOMATED COUNT 45.4 % Normal [facility] Comment on above: Performed By: #### C BCA #### [facility] [address] [place] [address] VIR Platelet mean volume (Bld) [Entitic vol] 7.6 fL Normal 7-12 [facility] Comment on above: Performed By: #### C BCA #### [facility] [address] [place] [address] VIR Platelets (Bld) [#/Vol] 246 10*3/uL Normal 150-450 [facility] Comment on above: Performed By: #### C BCA #### [facility] [address] [place] [address] VIR RBC COUNT 4.67 X10E12/L Normal 3.8-5.2 [facility] Comment on above: Performed By: #### C BCA #### [facility] [address] [place] [address] VIR WBC (Bld) [#/Vol] 4.5 10*3/uL Normal 4-11 [facility] Comment on above: Performed By: #### C BCA #### [facility] [address] [place] [address] VIR Orders Onlyon 01-25-2025 Orders Only [id number] Deepa Sears 1960 Provider Department Center 01/25/2025 DELIA HERNADEZ [facility] Family History Problem Relation Age of Onset Coronary artery disease Mother Heart attack Maternal Grandmother Hypertension Maternal Grandmother Other Maternal Grandfather Family Status - Relation Status Age at Mother Father Alive Brother Alive Maternal Grandmother Maternal Grandfather Normal [facility] 36on 01-09-2025 36 Patient called she's still coughing out of the blue and sneezing since replacing losartan with spironolactone for cough. She says she's also getting extreme hot flashes . Hasn't been checking her BP recently. Just had shoulder surgery. Any recommendations? Normal [facility] Office Visiton 12-21-2024 Follow-up visit [id number] Deepa Sears 1960 Provider Department Center 12/21/2024 [id number] LUCAS CARD [facility] Family History Problem Relation Age of Onset Coronary artery disease Mother Heart attack Maternal Grandmother Hypertension Maternal Grandmother Other Maternal Grandfather Family Status - Relation Status Age at Mother Father Alive Brother Alive Maternal Grandmother Maternal Grandfather Level of Service:82591 IN OFFICE/OUTPATIENT ESTABLISHED LOW MDM [address] [facility] Orders Onlyon 12-21-2024 Orders Only [id number] Deeap Sears 1960 Provider Department Center 12/21/2024 DEEPA DE LA CRUZ CARD [facility] Family History Problem Relation Age of Onset Coronary artery disease Mother Heart attack Maternal Grandmother Hypertension Maternal Grandmother Other Maternal Grandfather Family Status - Relation Status Age at Mother Father Alive Brother Alive Maternal Grandmother Maternal Grandfather [facility] MAMM DIAGNOSTIC UNILAT RT W CADon 12-20-2024 MAMM DIAGNOSTIC UNILAT RT W CAD MAMM DIAGNOSTIC UNILAT RT W CAD DEEPA SEARS 1960 [id number] EXAM: MAMM DIAGNOSTIC UNILAT RT W CAD, [...] 12:53 PM 1 b MAMM 1 YR [facility] 36on 12-08-[address] - patient can stop losartan and start spironolactone 25mg daily. Patient made aware. RX sent to her pharmacy. Normal [facility] 12-07-2024 ---- Attestation signed by Daxa Lane MD at 12/10/2024 11:05 AM I personally saw and examined the patient on the same date of service as resident/fellow Dr Garcia. I discussed the findings and therapeutic plan with the resident/fellow Dr Garcia. I agree with the documentation, except for any edits/updates below. Teaching Physician's Revisions: None Daxa Lane MD, LOCATED WITHIN [facility] ---- H&P reviewed. The patient was examined and there are no changes to the H&P. Mrs. Sears, a 64 year old female patient is scheduled for coronary angiogram for newly reduced EF via left radial access. [facility] NURSNOTEon 12-07-2024 NURSNOTE RN educated pt on d/c instructions. [...] arm for 24 hours for radial sites. [facility] NURSNOTE This report has been cancelled. [facility] 36on 12-05-2024 36 Patient called stating since starting metoprolol and losartan on 11/21/2024 she has had a dry cough and a slight tickle in the throat. Would you like to make a change? She is scheduled for heart cath on 12/07 with you. [facility] Telephoneon 12-05-2024 Telephone [id number] Deepa Sears 1960 F Date Provider Department Center 12/05/2024 ANIA HASTINGS Family History Problem Relation Age of Onset Coronary artery disease Mother Heart attack Maternal Grandmother Hypertension Maternal Grandmother Other Maternal Grandfather Family Status - Relation Status Age at Mother Father Alive Brother Alive Maternal Grandmother Maternal Grandfather [facility] Orders Onlyon 11-21-2024 Orders Only [id number] Deepa Sears 1960 F Provider Department Center 11/21/2024 DEEPA DE LA CRUZ Family History Problem Relation Age of Onset Heart attack Maternal Grandmother Hypertension Maternal Grandmother Other Maternal Grandfather Family Status - Relation Status Age at Maternal Grandmother Maternal Grandfather Normal 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 [...] long. Regarding family history: Maternal grandmother had AK in her left 70s, maternal grandfather had [...] Total bi (more content not included)... Normal [facility] Office Visiton 11-07-2024 Follow-up visit [id number] Deepa Sears 1960 F Date Provider Department Center 11/07/2024 [id number] LANE [facility] Family History Problem Relation Age of Onset Heart attack Maternal Grandmother Hypertension Maternal Grandmother Other Maternal Grandfather Family Status - Relation Status Age at Maternal Grandmother Maternal Grandfather Level of Service:90570 IN OFFICE/OUTPATIENT NEW MODERATE MDM 45 MINUTES Reason for Visit and Comments: Cardiac Stress Test [489] - Denies chest pain and SOB. Abnormal ECG [293] - She had ECG on 10/25 for pre-surgery testing. Dr. Kimball ordered stress test due to abnormal ECG. Edema [[id number]] Palpitations [789103] - Feels palpitations sometimes in the mornings when she's still lying in bed. Normal [facility] [place] 02-19-2024 L Specimen: [id number] Received: 02/19/24 Status: THOMAS Sy Num: [id number] Spec Type: Surgical Subm Dr: Lee Quiles DO Tissues: A Stomach - Biopsy/Polyp (ANTRUM) B Esophagus Biopsy (GE JUNCTION) Procedures: HE/4, Gross/Micro L4/2 Age/ Patient Sex Location Account Attending Physician Deepa Sears 63/F LABELL [id number] Lee Quiles DO SPEC NUM: [id number] RECD: 02/19/24 STATUS: THOMAS SY NUM: [id number] PREETI: 02/19/[address]: Lee Quiles DO ENTERED: 02/19/24-[address] [facility] [address]: Alejandro,Lab SPEC TYPE: Surgical DEPT: CARINE [...] Mild gastritis and esophagitis, hiatal hernia Specimen: [id number] Received: 02/19/24-1308 Status: THOMAS Sy Num: [id number] Spec Type: Surgical Subm Dr: Lee Quiles DO Tissues: A Stomach - Biopsy/Polyp (ANTRUM) B Esophagus Biopsy (GE JUNCTION) Procedures: JANET/David, Gross/Micro L4/2 Patient: Deepa Sears [id number] (Continued) Specimen: [id number] Received: 02/19/24 (Continued) Signed (signatur e on file) Darshan Iniguez MD 02/22/242036 Specimen: [id number] Received: 02/19/24 Status: THOMAS Sy Num: [id number] Spec Type: Surgical Subm Dr: Lee Quiles DO Tissues: A Stomach - Biopsy/Polyp (ANTRUM) B Esophagus Biopsy (GE JUNCTION) Procedures: JANET/David, Gross/Micro L4/2 Patient: Deepa Sears [id number] (Continued) Specimen: [id number] Received: 02/19/24 (Continued) Gross Description Received are [...] x 0.1 cm, entirely submitted in B1. [facility] Codes 46992O2 Specimen: [id number] Received: 02/19/24 Status: THOMAS Sy Num: [id number] Spec Type: Surgical Subm Dr: Lee Quiles DO Tissues: A Stomach - Biopsy/Polyp (ANTRUM) B Esophagus Biopsy (GE JUNCTION) Procedures: JANET/David Gross/Micro L4/2 Patient: Deepa Sears [id number] (Continued) Signed (signatur e on file) Darshan Iniguez MD 02/22/242036 Normal [facility] Surgical PathologyOrdered By : Sheron Molina on 02-19-2024 [facility] XR CHEST 2 Von 12-24-2022 XR [...] Date: 2022-12-24 16:25 Normal [facility] MAMM SCREEN 3D DALE CADon 10-20-2022 MG MAMM SCREEN 3D DALE CAD Patient: DEEPA SEARS Exam Date: 10/20/2022 : 1960 Gender:F Ordering : DR REAL KIMBALL . Admission #: [id number] Family : Order #: [id number] CLICK HERE TO VIEW EXAM RADIOLOGY REPORT [...] breast cancer at age 70. LOCATION: [facility] BREAST COMPOSITION: Heterogeneously dense,which may obscure [...] MD on 10/20/2022 at 12:00 Normal [facility] Covid-19 PCR (CVDTBH)on SARS-CoV-2 (COVID-19) RNA EMMANUEL+probe Ql (Unsp spec) Not detected Normal NOT DETECTED [facility] Comment on above: Result Comment: When [...] for this test is supported by the [employer] of Health and Human Service's declaration that [...] used). Performed By: #### C VDTBH #### [facility] [address] [place] [address] Dr. Cindi Iniguez INFLUENZA A AND B AGon 10-[facility] SEE BELOW Normal [facility] Comment on above: Result Comment: Nega tive for Flu A protein angiten. Infection due to Flu A cannot be ruled out. Flu A angiten in the sample may be below the detection limit of the test. Performed By: #### C MP, BNP, HSTROPN #### [facility] [address] [place] [address] Dr. Cindi Iniguez INFLUBNEGH SEE BELOW Normal [facility] Comment on above: Result Comment: Nega tive for Flu B protein antigen. Infection due to Flu B cannot be ruled out. Flu B antigen in the sample may be below the detection limit of the test. Performed By: #### C MP, BNP, HSTROPN #### [facility] [address] [address] [address] Cindi Iniguez INFLUENZA A AG Negative Normal NEGATIVE SEE COMMENT [facility] Comment on above: Performed By: #### C MP, BNP, HSTROPN #### [facility] [address] [address] [address] Cindi Iniguez INFLUENZA B AG Negative Normal NEGATIVE SEE COMMENT [facility] Comment on above: Performed By: #### C MP, BNP, HSTROPN #### [facility] [address] [address] [address] Cindi Iniguez Covid-19 PCR ([facility])on 07-09 SARS-CoV-2 (COVID-19) RNA EMMANUEL+probe Ql (Unsp spec) Not detected Normal NOT DETECTED [facility] Comment on above: Result Comment: When [...] for this test is supported by the [place] of Health and Human Service's declaration that [...] used). Performed By: #### C VDTBH #### [facility] [address] [address] [address] Cindi Iniguez BNPon 04-14-2022 Natriuretic peptide B (Bld) [Mass/Vol] 583.0 pg/mL Normal <=900.0 [facility] Comment on above: Performed By: #### C MP, BNP, HSTROPN #### [facility] [address] [place] [address] Dr. iCndi Iniguez CBC AUTO DIFFon 04-14-2022 BASO # 0.0 103/ul Normal 0.0-0.1 [facility] Comment on above: Performed By: #### C BC #### [facility] [address] [place] [address] Dr. Cindi Iniguez Basophils/100 WBC (Bld) 0.2 % Normal 0.2-2.0 [facility] Comment on above: Performed By: #### C BC #### [facility] [address] [place] [address] Dr. Cindi Iniguez EO # 0.0 103/ul Normal 0.0-0.7 [facility] Comment on above: Performed By: #### C BC #### [facility] [address] [place] [address] Dr. Cindi Iniguez Eosinophils/100 WBC (Bld) 0.3 % Critically low 0.9-7.0 [facility] Comment on above: Performed By: #### C BC #### [facility] [address] [place] [address] Dr. Cindi Iniguez Erythrocyte distribution width (RBC) [Ratio] 12.6 % Normal 11.0-15.0 [facility] Comment on above: Performed By: #### C BC #### [facility] [address] [place] [address] Dr. Cindi Iniguez Hematocrit (Bld) [Volume fraction] 43.3 % Normal 36.0-48.0 [facility] Comment on above: Performed By: #### C BC #### [facility] [address] [place] [address] Dr. Cindi Iniguez Hemoglobin (Bld) [Mass/Vol] 14.5 g/dL Normal 12.0-16.0 [facility] Comment on above: Performed By: #### C BC #### [facility] [address] [address] [address] Cindi Iniguez IG # 0.07 10e3/ul Critically high 0.00-0.03 [facility] Comment on above: Performed By: #### C BC #### [facility] [address] [address] [address] Cindi Iniguez IG % 0.5 % Normal 0.0-0.5 [facility] Comment on above: Performed By: #### C BC #### [facility] [address] [place] [address] Dr. Cindi Iniguez LYMPH # 1.8 103/ul Normal 1.2-3.8 [facility] Comment on above: Performed By: #### C BC #### [facility] [address] [place] [address] Dr. Cindi Iniguez Lymphocytes/100 WBC (Bld) 12.9 % Critically low 20.5-60.0 [facility] Comment on above: Performed By: #### C BC #### [facility] [address] [place] [address] Dr. Cindi Iniguez MANUAL DIFF REQ NO Normal [facility] Comment on above: Performed By: #### C BC #### [facility] [address] [place] [address] Dr. Cindi Iniguez MCH (RBC) [Entitic mass] 30.5 pg Normal 26.7-34.0 [facility] Comment on above: Performed By: #### C BC #### [facility] [address] [place] [address] Dr. Cindi Iniguez MCHC (RBC) [Mass/Vol] 33.5 g/dL Normal 29.9-35.2 [facility] Comment on above: Performed By: #### C BC #### [facility] [address] [place] [address] Dr. Cindi Iniguez MCV (RBC) [Entitic vol] 91.0 fL Normal 81.0-99.0 [facility] Comment on above: Performed By: #### C BC #### [facility] [address] [place] [address] Dr. Cindi Iniguez MONO # 1.0 103/ul Critically high 0.3-0.8 [facility] Comment on above: Performed By: #### C BC #### [facility] [address] [address] [address] Cindi Iniguez Monocytes/100 WBC (Bld) 7.1 % Normal 1.7-12.0 [facility] Comment on above: Performed By: #### C BC #### [facility] [address] [address] [address] Cindi Iniguez NEUT # 10.9 103/ul Critically high 1.4-6.[address] [facility] Comment on above: Performed By: #### C BC #### [facility] [address] [place] [address] Dr. Cindi Iniguez Neutrophils/100 WBC (Bld) 79.0 % Critically high 43.0-75.0 [facility] Comment on above: Performed By: #### C BC #### [facility] [address] [place] [address] Dr. Cindi Iniguez Platelet mean volume (Bld) [Entitic vol] 8.8 fL Critically low 9.5-13.5 [facility] Comment on above: Performed By: #### C BC #### [facility] [address] [place] [address] Dr. Cindi Iniguez PLT 207 103/ul Normal 150-450 [facility] Comment on above: Performed By: #### C BC #### [facility] [address] [address] [address] Cindi Iniguez RBC 4.76 106/ul Normal 4.20-5.40 [facility] Comment on above: Performed By: #### C BC #### [facility] [address] [place] [address] Dr. Cindi Iniguez WBC 13.8 103/ul Critically high 4.0-11.[address] [facility] Comment on above: Performed By: #### C BC #### [facility] [address] [place] [address] Dr. Cindi Iniguez CTA CHEST WO W [...] HERNÁN BAR Date: 2022-04-14 16:28 Normal [facility] PROF 14(COMP METB)on Albumin [Mass/Vol] 3.5 g/dL Normal 3.4-5.0 [facility] Comment on above: Performed By: #### C MP, BNP, HSTROPN #### [facility] [address] [place] [address] Dr. Cindi Iniguez Albumin/Globulin [Mass ratio] 1.0 {ratio} Normal [facility] Comment on above: Performed By: #### C MP, BNP, HSTROPN #### [facility] [address] [place] [address] Dr. Cindi Iniguez ALP [Catalytic activity/Vol] 64 U/L Normal 46-116 [facility] Comment on above: Performed By: #### C MP, BNP, HSTROPN #### [facility] [address] [address] [address] Cindi Iniguez ALT [Catalytic activity/Vol] 44 U/L Normal 14-59 [facility] Comment on above: Performed By: #### C MP, BNP, HSTROPN #### [facility] [address] [place] [address] Dr. Cindi Iniguez Anion gap [Moles/Vol] 12.5 mmol/L Normal [facility] Comment on above: Performed By: #### C MP, BNP, HSTROPN #### [facility] [address] [address] [address] Cindi Iniguez AST [Catalytic activity/Vol] 21 U/L Normal 15-37 [facility] Comment on above: Performed By: #### C MP, BNP, HSTROPN #### [facility] [address] [address] [address] Cindi Iniguez Bilirubin [Mass/Vol] 0.3 mg/dL Normal 0.2-1.0 [facility] Comment on above: Performed By: #### C MP, BNP, HSTROPN #### [facility] [address] [place] [address] Dr. Cindi Iniguez Calcium [Mass/Vol] 9.1 mg/dL Normal 8.5-10.1 [facility] Comment on above: Performed By: #### C MP, BNP, HSTROPN #### [facility] [address] [place] [address] Dr. Cindi Iniguez Chloride [Moles/Vol] 97 mmol/L Critically low 98-107 [facility] Comment on above: Performed By: #### C MP, BNP, HSTROPN #### [facility] [address] [place] [address] Dr. Cindi Iniguez CO2 [Moles/Vol] 29.8 mmol/L Normal 21.0-32.0 [facility] Comment on above: Performed By: #### C MP, BNP, HSTROPN #### [facility] [address] [place] [address] Dr. Cindi Iniguez Creatinine [Mass/Vol] 1.06 mg/dL Critically high 0.55-1.02 [facility] Comment on above: Performed By: #### C MP, BNP, HSTROPN #### [facility] [address] [place] [address] Dr. Cindi Iniguez EGFR-AF JAPANESE >60 Normal >=[address] [facility] Comment on above: Performed By: #### C MP, BNP, HSTROPN #### [facility] [address] [place] [address] Dr. Cindi Iniguez EGFR-NON AF JAPANESE 53 mL/min/1.73m2 Critically low >=60 [facility] Comment on above: Performed By: #### C MP, BNP, HSTROPN #### [facility] [address] [place] [address] Dr. Cindi Iniguez Globulin (S) [Mass/Vol] 3.6 g/dL Normal [facility] Comment on above: Performed By: #### C MP, BNP, HSTROPN #### [facility] [address] [place] [address] Dr. Cindi Iniguez Glucose [Mass/Vol] 109 mg/dL Critically high 74-106 [facility] Comment on above: Performed By: #### C MP, BNP, HSTROPN #### [facility] [address] [place] [address] Dr. Cindi Iniguez Potassium [Moles/Vol] 4.3 mmol/L Normal 3.5-5.1 [facility] Comment on above: Performed By: #### C MP, BNP, HSTROPN #### [facility] [address] [place] [address] Dr. Cindi Iniguez Protein [Mass/Vol] 7.1 g/dL Normal 6.4-8.2 [facility] Comment on above: Performed By: #### C MP, BNP, HSTROPN #### [facility] [address] [place] [address] Dr. Cnidi Iniguez Sodium [Moles/Vol] 135 mmol/L Critically low 136-145 [facility] Comment on above: Performed By: #### C MP, BNP, HSTROPN #### [facility] [address] [place] [address] Dr. Cindi Iniguez Urea nitrogen [Mass/Vol] 17.0 mg/dL Normal 7.0-18.0 [facility] Comment on above: Performed By: #### C MP, BNP, HSTROPN #### [facility] [address] [place] [address] Dr. Cindi Iniguez Urea nitrogen/Creatinine [Mass ratio] 16.0 mg/mg Normal [facility] Comment on above: Performed By: #### C MP, BNP, HSTROPN #### [facility] [address] [place] [address] Dr. Cindi Iniguez PROTIMEon 04-14-2022 INR Coag (PPP) [Relative time] 0.93 {INR} Normal [facility] Comment on above: Performed By: #### P TT, PT #### [facility] [address] [place] [address] Dr. Cindi Iniguez INR GUIDELINES SEE BELOW Normal [facility] Comment on above: Result Comment: MESSI RED INR: 2.0 - 3.0 CONDITIONS NOT LISTED BELOW 2.5 - 3.5 FOR PROSTHETIC HEART VALVE REPLACEMENT 2.5 - 3.5 RECURRENT THROMBOSIS Performed By: #### P TT, PT #### [facility] [address] [place] [address] Dr. Cindi Iniguez PT Coag (PPP) [Time] 10.1 s Normal 9.0-11.6 [facility] Comment on above: Performed By: #### P TT, PT #### [facility] [address] [place] [address] Dr. Cindi Iniguez PTTon 04-14-2022 aPTT Coag (Bld) [Time] 23.8 s Normal 22.3-36.2 [facility] Comment on above: Performed By: #### C MP, BNP, HSTROPN #### [facility] [address] [place] [address] Dr. Cindi Iniguez TROPONIN, HIGH SENSITIVITYon 04-14-2022 HSTROP 27.4 pg/mL Normal 4.0-51.3 [facility] Comment on above: Result Comment: CUT- OFF POINTS HAVE BEEN ESTABLISHED BASED ON THE FOURTH UNIVERSAL DEFINITIONS OF MYOCARDIAL INFARCTION. THE UPPER REFERENCE LIMIT (URL) OF TROPONIN, DEFINED THE 99TH PERCENTILE OF cTnI DISTRIBUTION IN A REFERENCE POPULATION, HAS BEEN CONFIRMED THE DECISION THRESHOLD FOR AK DIAGNOSIS. Performed By: #### C MP, BNP, HSTROPN #### [facility] [address] [place], [place] [address] Dr. Cindi Iniguez [facility]08 SARS-CoV-2 (COVID-19) RNA EMMANUEL+probe Ql (Unsp spec) Detected Critically abnormal NOT DETECTED [facility] Comment on above: Result Comment: This test is not yet approved or cleared by the [place] FDA. When there are no FDA-approved or cleared tests available, and other criteria are met, FDA can make tests available under an emergency access mechanism called an Emergency Use Authorization (EUA). The EUA for this test is supported by the [place] of Health and Human Service's (HHS's) declaration [...] By: #### C MP, BNP, HSTROPN #### [facility] [address] [place], [place] [address] Dr. Cindi Iniguez Vital Signs Date Time Vital Sign Value Performing Clinician Facility 12-30-2024 15:13-0400 Heart rate 63 /min Raymond Davila MD Work Phone: [facility] 12-30-2024 15:13-0400 Respiratory rate 17 /min Raymond Davila MD Work Phone: [facility] 12-30-2024 15:13-0400 SaO2% (BldA) [Mass fraction] 94 % Raymond Davila MD Work Phone: [facility] 12-30-2024 15:00-0400 Diastolic blood pressure 57 mm[Hg] Raymond Davila MD Work Phone: [facility] 12-30-2024 15:00-0400 Systolic blood pressure 141 mm[Hg] Raymond Davila MD Work Phone: [facility] 12-30-2024 14:33-0400 Body temperature 97.39 [degF] Raymond Davila MD Work Phone: [facility] 12-30-2024 09:36-0400 Body height 162.6 cm Raymond Davila MD Work Phone: [facility] 12-26-2024 14:57-0400 Body mass index (BMI) [Ratio] 32.61 kg/m2 Raymond Davila MD Work Phone: [facility] 12-26-2024 14:57-0400 Body weight 86.18 kg Raymond Davila MD Work Phone: [facility] 10-22-2023 15:23-0500 Body mass index (BMI) [Ratio] 36.39 kg/m2 [employer] NUCLEAR PHYSICS PROFESSOR-EMERGENCY COMMUNICATIONS OFFICER Work Phone: [facility] 10-22-2023 15:23-0500 Body weight 96.16 kg [employer] NUCLEAR PHYSICS PROFESSOR-EMERGENCY COMMUNICATIONS OFFICER Work Phone: [employer] Encounters Encounter Date Encounter Type Care Provider Facility Start: 05-09-2025 ambulatory [facility] Start: 04-07-2025 ambulatory [facility] Start: 03-07-2025 ambulatory [facility] Start: 02-13-2025 End: 02-13-2025 ambulatory [facility] Start: 02-06-2025 ambulatory [facility] Start: 02-03-2025 ambulatory FELIPE FERRARA [facility] Start: 02-03-2025 End: 02-03-[address] [facility] Start: 01-27-2025 ambulatory FELIPE FERRARA [facility] Start: 01-11-2025 ambulatory [facility] Start: 12-30-2024 End: 12-30-2024 ambulatory [facility] Start: 12-30-2024 End: 12-30-2024 Subsequent hospital visit by physician Raymond Davila MD Work Phone: [facility] Comment on above: Postoperative pain ( Primary Dx) Start: 12-26-2024 ambulatory [facility] Start: 12-26-2024 Encounter for genera l adult medical examination without abnormal findings [facility] Start: 12-26-2024 End: 12-26-2024 Subsequent hospital visit by physician [facility] Start: 12-21-2024 End: 12-21-2024 ambulatory [facility] Start: 12-20-2024 End: 12-20-2024 ambulatory [facility] Start: 12-13-2024 ambulatory [facility] Start: 12-07-2024 End: 12-07-2024 ambulatory [facility] Start: 11-07-2024 End: 11-07-2024 ambulatory [facility] Start: 07-13-2024 End: 07-13-2024 Refill Lee Quiles DO Work Phone: [facility] Start: 05-06-2024 End: 05-06-2024 Refill Lee Quiles DO Work Phone: [facility] Start: 03-02-2024 End: 03-02-2024 Orders Only Not In System Ref Prov [facility] Start: 02-19-2024 End: 02-19-2024 ambulatory Lee Quiles [facility] Work Phone: Start: 02-19-2024 End: 02-19-2024 Departed Referred DO Lee Quiles Work Phone: [facility] Start: 10-22-2023 End: 10-22-2023 Office outpatient new 30 minutes Soraida A Hawkins NUCLEAR PHYSICS PROFESSOR-EMERGENCY COMMUNICATIONS OFFICER Work Phone: [facility] Comment on above: Family history of ma lignant neoplasm of colon (Primary Dx) Start: 12-24-2022 End: 12-25-[address] REAL KIMBALL . Facility:[facility] Start: 10-20-2022 End: 10-21-[address] REAL KIMBALL . Facility:[facility] Start: 10-08-2022 End: 10-08-[address] REAL KIMBALL . Facility:[facility] Start: 08-05-2022 End: 08-05-2022 ambulatory CASANDAR ALLEN Facility:[facility] Start: 04-14-2022 End: 04-14-2022 ambulatory AVERY MCKNIGHT Facility:[facility] Start: 04-02-2022 End: 04-02-[address] REAL KIMBALL . Facility:[facility] Start: 02-20-[address] REAL KIMBALL . Facili ty:[facility] Procedures Date Procedure Procedure Detail Performing Clinician Start: 02-19-2024 Level i surg patholo gy gross examination only Not In System Ref Prov Start: 11-05-2023 Colonoscopy Not Ref Pr ov Start: 10-11-2018 Colonoscopy Soraida núñez NUCLEAR PHYSICS PROFESSOR-EMERGENCY COMMUNICATIONS OFFICER Work Phone: Plan of Treatment Date Care Activity Detail Author Start: 2035 Respiratory Syncytia l Virus (RSV) or age 60 yrs+ (1 - 1-dose 75+ series) Respiratory Syncytial Virus (RSV) or age 60 yrs+ (1 - 1-dose 75+ series) [facility] Start: 11-04-2028 Screening for malign ant neoplasm of colon Colonoscopy [facility] Start: 04-07-2025 Influenza vaccination Flu vacc ine (Season Ended) [facility] Start: 12-30-2024 End: 12-30-2024 Admission to same day surgery center 12/30/2024 10:00 AM EDT - 12/30/2024 11:34 AM EDT Surgery [facility] [address] [place] [address] Raymond Davila MD [address] [place] [address] RIGHT SHOULDER ARTHROSCOPIC ROTATOR CUFF REPAIR [facility] Comment on above: RIGHT SHOULDER ARTHR OSCOPIC ROTATOR CUFF REPAIR Start: 12-30-2024 End: 12-30-2024 Arthroscopy shoulder rotator cuff repair [facility] Start: 12-30-2024 Subsequent hospital visit by physician 12/30/2024 10:00 AM EDT Hospital Encounter [facility] [address] [place] [address] Raymond Davila MD [address] [place] [address] [facility] Start: 11-04-2024 Adult BMI Screening Adult BMI Screen ing [facility] Start: 11-04-2024 Tobacco Screening Tobacco Screening [facility] Start: 10-22-2024 Adult BMI Screening Adult BMI Screen ing [facility] Start: 10-22-2024 Tobacco Screening Tobacco Screening [facility] Start: 05-08-2024 COVID-19 Vaccine ( season) COVID-19 Vaccine ( season) [facility] Start: 05-08-2024 COVID-19 Vaccine ( season) COVID-19 Vaccine ( season) [facility] Start: 05-08-2024 COVID-19 Vaccine ( season) COVID-19 Vaccine ( season) [facility] Start: 05-08-2024 Influenza vaccination Influenza Vacc ine [facility] Start: 11-05-2023 End: 11-05-2023 Admission to same day surgery center 11/05/2023 11:00 AM EST - 11/05/2023 11:30 AM EST Surgery [facility] [address] [place] [id number] Lee Quiles DO [address] [place] [address] COLONOSCOPY DIAGNOSTIC / SCREENING [69427 (CPT )] [facility] Comment on above: COLONOSCOPY DIAGNOST IC / SCREENING [94315 (CPT )] Start: 11-05-2023 End: 11-05-2023 Colonoscopy flx dx w/collj spec when pfrmd COLONOSCOPY DIAGNOSTIC / SCREENING Family history of colon cancer 11/05/2023 11:00 AM EST [facility] Start: 11-05-2023 Subsequent hospital visit by physician 11/05/2023 11:00 AM EST Hospital Encounter [facility] [address] [place] [id number] Lee Quiles, DO [address] [place], [place] [id number] [facility] Start: 10-29-2023 End: 10-29-2023 ambulatory 10/29/2023 2:10 PM EST Support Visit [facility] Admit [address] [place] [id number] [facility] Pre Admit Start: 10-11-2023 Screening for malign ant neoplasm of colon Colonoscopy [facility] Start: 2020 Respiratory Syncytia l Virus (RSV) or age 60 yrs+ (1 - Risk 60-74 years 1-dose series) Respiratory Syncytial Virus (RSV) or age 60 yrs+ (1 - Risk 60-74 years 1-dose series) [facility] Start: 2010 Administration of varicella zoster vaccine Zoster (Shingles) Vaccine (1 of 2) [facility] Start: 1979 DTaP,Tdap and Td Vac cines (1 - Tdap) DTaP,Tdap and Td Vaccines (1 - Tdap) [facility] Start: 1979 DTaP/Tdap/Td vaccine (1 - Tdap) DTaP/Tdap/Td vaccine (1 - Tdap) [facility] Start: 1978 Adult BMI Follow Up Plan Adult BMI Follow Up Plan [facility] Start: 1972 [facility]: 10-22-2024 Colonoscopy Colonoscopy GI Routine Family history of malignant neoplasm of colon 1 Occurrences starting 10/22/2023 until 10/22/2024 [facility] Work Phone: Comment on above: 1 Occurrences starti ng 10/22/2023 until 10/22/2024 Immunizations Immunization Date Immunization Notes Care Provider [facility] 06-17-2023 influenza virus vacc ine, unspecified formulation Not Ref Prov [facility] Payers Date Payer Category Payer Self-pay 2023 Managed Care Other (unspecified) [facility] [id number] 2023 Private Health Insurance [facility] CHO[employer] PLUS [id number] 2023-Present [phone] [place] [id number] 2015 Private Health Insurance [id number] 1960 Unknown [id number] 2.16.840.1.207640.3.579. 2.593 1960 Unknown [id number] 2.16.840.1.488940.3.579. 2.593 1960 Unknown [id number] 2.16.840.1.181904.3.579. 2.593 1960 Unknown [id number] 2.16.840.1.591972.3.579. 2.593 1960 Unknown [id number] 2.16.840.1.585051.3.579. 2.593 1960 Unknown [id number] 2.16.840.1.884360.3.579. 2.593 1960 Unknown [id number] 2.16.840.1.661494.3.579. 2.593 1960 Unknown [id number] 2.16.840.1.873094.3.579. 2.1286 1960 Unknown [id number] 2.16.840.1.009611.3.579. 2.1286 1960 Unknown [id number] 2.16.840.1.000249.3.579. 2.174 1960 Unknown [id number] 2.16.840.1.365415.3.579. 2.1286 1960 Unknown [id number] 2.16.840.1.211646.3.579. 2.1286 1960 Unknown [id number] 2.16.840.1.661562.3.579. 2.1286 1960 Unknown [id number] 2.16.840.1.139460.3.579. 2.1286 1960 Unknown [id number] 2.16.840.1.072236.3.579. 2.1286 1960 Unknown [id number] 2.16.840.1.772663.3.579. 2.1286 1960 Unknown [id number] 2.16.840.1.061504.3.579. 2.1286 1959 Private Health Insurance [id number] 1959 Self-pay [id number] Social History Date Type Detail [facility] Start: 1960 Sex Assigned At Female [facility] Start: 12-31-2022 End: 12-26-2024 Tobacco smoking status NHIS Ex-smoker [facility] Start: 08-28-1976 End: 08-28-1998 History of tobacco use Current smoker [facility] Start: 08-28-1976 End: 08-28-1998 History of tobacco use Cigarette Smoker [facility] Start: 12-31-2022 End: 12-26-2024 Tobacco use and exposure Smokeless tobacco non-user [facility] Start: 10-22-2023 End: 12-30-2024 Alcohol intake Current drinker of alcohol (finding) [facility] Start: 12-30-2021 End: 12-30-2024 History of Social function [facility] Work Phone: Start: 12-30-2021 End: 12-30-2024 Alcohol Use Disorder Identification Test - Consumption [AUDIT-C] [facility] Work Phone: How often to you hav e a drink containing alcohol? Monthly or less [facility] Work Phone: How many standard dr inks containing alcohol do you have on a typical day? 5 or 6 [facility] How often do you hav e 6 or more drinks on 1 occasion? Less than monthly [facility] Childcare Unknown [facility] Start: 09-28-2018 End: 12-26-2024 Alcohol Comment social [facility] Start: 1960 Sex Assigned At Not on file P [facility] Start: 09-22-2018 End: 12-26-2024 Sex Female (finding) [facility] Medical Equipment Procedure Code Equipment Code Equipment Origin al Text Equipment Identifier Dates Laurel Sut L19.1 mm Dia5.5mm Biocomposite Full Thrd Knotless - [id number] Start: 12-30-2024 Clinical Notes 10-22-2023 to 02-13-2025 Discharge Yennifer Cardona RN - 12/26/2024 3:04 PM EDTTelephone Encounter - Anabell Herrera CMA - 03/02/2024 1:22 PM EDTTelephone Encounter - Anabell Herrera CMA - 03/02/2024 1:22 PM EDT Note Date & Type Note Facility 02-13-2025 Note [facility] Note Reason for cardiology [...] fraction 35% 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 [...] long. Regarding family history: Maternal grandmother had AK in her left 70s, maternal grandfather had [...] Rfl: metoprolol suc (more content not included)... [facility] 12-30-2024 Hospital Discharg e instructions Raymond [...] for any questions regarding your surgery. Call [phone] for urgent questions after 5PM until 8AM [...] 2:43 PM documented in this encounter [facility] 12-26-2024 History of Presen t illness Narrative [facility] Preadmission Testing Name: Deepa Sears : 1960 [...] [x] Ride Home [x] No Jewelry/Contact Lenses/Nail Kazakh [] Prep/Lax/Clear Liquids [] Chlorhexidene DOS Patient Needs [] HCG [] Blood Sugar [] PT/INR [] T&S Do you have any metal allergies? [] Yes [x] No If yes, to what metals: Patient instructed on the pre-operative, intra-operative, and post-operative process? Yes Medication instructions reviewed with patient? Yes documented in this encounter [facility] 12-21-2024 Note SUBJECTIVE Reason for Visit: Deepa [...] EF of 35%. 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 Family history was notable for AK in her maternal grandmother (late 70s), a [...] Types: Cigarettes Quit date: 1997 Years since quittin.3 Smokeless tobacco: Never Substance Use Topics Alcohol [...] Penicillins Swelling Sulf (more content not included)... [facility] 12-07-2024 Note Patient: Deepa noel Procedure Information Date/Time: 12/07/24829 Procedure: Coronary angiography - PC APPROVED Location: [facility] / [facility] (Cath) Providers: Daxa Lane MD Clinical information reviewed: Allergies Meds Physical Exam Airway Mallampati: III Cardiovascular Rhythm: regular Rate: normal Dental Pulmonary Breath sounds clear to auscultation Abdominal Anesthesia Plan ASA 3 other (Moderate Sedation ) Anesthetic plan and risks discussed with patient. Use of blood products discussed with patient who consented to blood products. Additional Equipment Requests 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 [...] long. Regarding family history: Maternal grandmother had AK in her left 70s, maternal grandfather had [...] 8.8 Total bi (more content not included)... [facility] 03-02-2024 Miscellaneous Notes ----- Message from [...] put in chart. documented in this encounter [facility] 03-02-2024 Telephone encounter Note ----- Message from Dr. Lee Quiles DO [...] can make an appointment to see me. [facility] 03-02-2024 Telephone encounter Note Spoke with patient regarding pathology results. Patient verbally understood with questions answered to the best of my ability. Will have Dr. Quiles prescribe Omeprazole BID and send information on Cool's Esophagus in the mail. Recall to be put in chart. [facility] 10-22-2023 History of Presen t illness Narrative [...] 10/11/2018 Performed by Lee Quiles DO at [facility] ESOPHAGOGASTRODUODENOSCOPY N/A 07/04/2021 Performed by Lee Quiles DO at [facility] HYSTERECTOMY 2008 OOPHORECTOMY Allergies Allergen Reactions Penicillins [...] mouth daily., Disp: , Rfl: peg 3350-sod sulf,iwoy-vba-bgd 178.7-7.3-0.5 gram recon soln, Take 1 kit [...] patient/family/caregiver Referring and communicating with other health managed care manager Family history of malignant neoplasm of colon [Z80.0] BETTY SMITH [facility] [place] This note was created with the assistance of a speech recognition program. While intending to generate a timely document that accurately reflects the content of the visit, no guarantee can be provided that every grammatical or spelling mistake has been or will be identified or corrected. Thank you for your understanding. BETTY Smith 10/22/23 1550 documented in this encounter [facility] Evaluation note No assessment inform [facility] Work Phone: Evaluation note Diagnosis Family history of malignant neoplasm of colon- Primary Family history of colon cancer Family history of malignant neoplasm of gastrointestinal tract documented in this encounter [facility]* Diagnosis Postoperative pain- Primary Other acute postoperative pain [facility] filedocumented in this [facility] filedocumented in this encounter [facility] on filedocumented in this encounter [facility] Narrative* Auth/Cert (Routine) Specialty Diagnoses / Procedures Referred By Susannah t Referred To Contact Diagnoses Complete tear of right rotator cuff, unspecified whether traumatic Complete tear of right rotator cuff, unspecified whether traumatic [M75.121] Procedures IN SURGICAL ARTHROSCOPY SHOULDER W/ROTATOR CUFF RPR RIGHT SHOULDER ARTHROSCOPIC ROTATOR CUFF REPAIR Raymond Davila MD [address] [place] [address] Phone: tel: fax: [facility] [employer] [address] [place] [address] Referral ID Status Reason Start Date Expiration Date Visits Re quested Visits Authorized [id number] 1 1 [employer] Summary Purpose Family History No Family History Records FoundNo Family History Records FoundNo Family History Records FoundNo Family History Records FoundNo Family History Records FoundNo Family History Records FoundNo Family History Records Found Advance Directives No Advanced Directives Records Found Date Activated Date Inactivated Comments 12/30/2024 2:44 PM Additional Source Comments INFORMATION SOURCE (unrecogn ized section and content) DATE CREATED AUTHOR 12/28/2022 [facility] DATE CREATED AUTHOR AUTHOR'S ORGANIZ ATION 02/20/2024 [facility] DATE CREATED AUTHOR AUTHOR'S ORGANIZ ATION 02/22/2024 [facility] DATE CREATED AUTHOR AUTHOR'S ORGANIZ ATION 12/24/2024 [facility] DATE CREATED AUTHOR AUTHOR'S ORGANIZ ATION 12/31/2024 [facility] DATE CREATED AUTHOR AUTHOR'S ORGANIZ ATION 05/15/2025 [facility] DATE CREATED AUTHOR AUTHOR'S ORGANIZ ATION 05/27/2025 [facility] Care Teams (unrecognized sec tion and content) Team Status: Inactive Member Role Status Dates Lee Quiles DO Attending Provider Active Start: February 19, 2024 End: February 19, 2024 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 Start Date End Date Real Kimball MD [address] [place] [address] PCP - General Family Medicine 09/22/18 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 Start Date End Date Real Kimball MD [address] [place] [address] PCP - General Family Medicine 09/22/18 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 Start Date End Date Real Kimball MD [address] [place] [address] PCP - General Family Medicine 09/22/18 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 Start Date End Date Real Kimball MD [address] [place] [address] PCP - General Family Medicine 09/22/18 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 Aldair fluid bag with adapter, mix, and administer per order. 1020 (New Bag - Prov ider: Roxane Griffin RN)1120 (Stopped - Provider: Roxane Griffin RN) Continuous Medication Order 12/28/2024 12/29/2024 12/30/2024 lactated ringers infusion IntraVENous, at 100 mL/hr, CONTINUOUS, Starting on Thu12/30/24 at 0930, Pre-op (day of surgery) 0946 (New Bag - Prov ider: Pola Kasper RN)1319 (NoRateChange - Provider: SRINIVASAN Torres CRNA)1415 (New Bag - Provider: SRINIVASAN Torres CRNA)1427 (Anesthesia Volume Adjustment - Provider: SRINIVASAN Torres CRNA) PRN Medication Order 12/28/2024 12/29/2024 12/30/2024 sod chloride IRR soln 0.9 % 3,000 mL with EPINEPHrine 1 mg (CANCELED) PRN, Starting on Thu12/30/24 at 1358, Intra-op 1358 (Given - Provid er: Raymond Davila MD) sod chloride IRR soln 0.9 % irrigation (COMPLETED) CONTINUOUS PRN, Starting on Thu12/30/24 at 1357, Intra-op 1357 ([facility] - Prov ider: Raymond Davila MD - [...] BE BASED ON THE PRIMARY CLINICAL RECORDS. [employer]. provides no warranty or guarantee of the accuracy or completeness of information in this document.
== END 2025-06-08 12:03 | disposition home or self-care (01) ==
LOC: MRI 12:03
PROVIDERS: PCP Family Medicine; Visit Provider Nurse Practitioner
DX: M75.121 Complete rotator cuff tear or rupture of right shoulder, not specified as traumatic (principal); S43.431A Superior glenoid labrum lesion of right shoulder, initial encounter; S46.811A Strain of other muscles, fascia and tendons at shoulder and upper arm level, right arm, initial encounter
CPT/HCPCS: 73221

== ENCOUNTER 2025-08-17 10:52 | Outpatient (OUT) | payer MEDICARE, OTHER, SELFPAY ==
--- NOTE | 2025-08-17 11:05 | ECG_ITS ---
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: : 1960 Requested By: [id number] Order Number: [id number] Reading MD: DOTTY MILLER Measurements Intervals [place] Rate: 60 P: 61 UT: 199 QRS: -10 QRSD: 145 T: -90 QT: 417 QTc: 420 Interpretive Statements SINUS RHYTHM Septal infarct age-indeterminate cannot be ruled out INTRAVENTRICULAR CONDUCTION DELAY [130+ ms QRS DURATION] Left ventricular hypertrophy with repolarization abnormalities ST-T wave abnormalities likely related to repolarization abnormality versus ischemia Compared to ECG 10/25/2024 15:14:26 Intraventricular conduction delay now present Left-axis deviation no longer present Electronically Signed On 08-17-2025 15:55:29 EST by DOTTY MILLER
--- OUTSIDE RECORDS SUMMARY | 2025-08-17 11:16 | XMS_ITS | CCD ---
Author Organization [facility] Care Team Providers Care Information Systems Director Name Role Phone AVERY MCKNIGHT Attending Unavailable [...] DR NOBLE Admitting Unavailable HOY ., DR NOBEL Primary Care Unavailable EDDIE OROSCO Consulting Unavailable HOY ., DR NOBLE Consulting Unavailable HOY ., DR NOBLE Attending Unavailable HOY ., DR NOBLE Admyordan Unavailable HOY ., DR NOBLE Primary Care Unavailable METAMORA, DR CALLY Aguila Consulting Unavailable HOY ., DR NOBLE Consulting Unavailable HOY ., DR NOBLE Attending Unavailable HOY ., DR NOBLE Admitting Unavailable HOY ., DR NOBLE Primary Care Unavailable CASANDRA ALLEN Attending Unavailable CASANDRA ALLEN Admitting Unavailable BRIANY ., DR NOBLE Primary Care Unavailable CASANDRA ALLEN Consulting Unavailable DO Lee Quiles Attending Provider [phone] Lee Quiles Admitting Unavailable Lee Quiles Attending Unavailable Tano Bautista MD Primary Care Provider Tano Bautista MD Primary Care Provider TANO BAUTISTA Referring Unavailable TANO BAUTISTA Primary Care Unavailable Unavailable Primary Care Provider UnavailTano Liang MD Primary Care Provider [phone] HAYES MADERA Referring Unavailable MADERAHAYES Attending Unavailable HOY, TANO M Primary Care Unavailable MADERA, HAYES C Admitting Unavailable HOY, TANO M Referring Unavailable HOY, TANO M Primary Care Unavailable MADERA, HAYES Romero Referring Unavailable HOY, TANO M Primary Care Unavailable FELIPE FERRARA Referring Unavailabl e HOY, TANO M Primary Care Unavailable MADERA, HAYES Romero Referring Unavailable HOY, TANO M Primary Care Unavailable MADERA, HAYES C Referring Unavailable HOY, TANO M Primary Care Unavailable MADERA, HAYES Romero Referring Unavailable HOY, TANO M Primary Care Unavailable MADERA, HAYES Romero Referring Unavailable HOY, TANO M Primary Care Unavailable MADERA, HAYES Romero Referring Unavailable HOY, TANO M Primary Care Unavailable DAXA VALENZUELA Attending Unavailable DAXA VALENZUELA Attending Unavailable DAXA VALENZUELA Attending Unavailable FELIPE FERRARA Referring Unavailable FELIPE FERRARA Referring Unavailable NGUYỄN ANTONIO Referring Unavailable DAXA VALENZUELA Admitting Unavailable DAXA VALENZUELA Attending Unavailable FELIPE FERRARA Admitting Unavailable FELIPE FERRARA Attending Unavailable CHUCK LUCAS Attending Unavailable Allergies Allergy ClassificationReported Allergen(s)Allergy TypeDate of OnsetReaction(s) Facility (1 source)PenicillinDrug AllergyThe [facility] (1 source)Sulfonamides (Antibiotic)Drug allergy (disorder)[facility] (11 sources)Penicillins; Translations: [PENICILLINS]Propensity to adverse reactions to uhcw42-84-5238KztdwwucV[facility] (8 sources)sulfabenzamide; Translations: [SULFABENZAMIDE]Drug Cupcsnh50-04-1543 [facility] (11 sources)Sulfonamides (Antibiotic); Translations: [SULFA (SULFONAMIDE ANTIBIOTICS)]Propensity to adverse reactions to whop23-94-7856UltlkrlaejR[facility] (1 source)Ciprofloxacin; Translations: [CIPROFLOXACIN]Drug Awxlgpg14-60-1235 [facility] Repository (1 source)Fluconazole; Translations: [FLUCONAZOLE]Drug Izscbat02-08-6539 [facility] Rep[facility] (1 source)Losartan; Translations: [LOSARTAN]Drug Dgwlael42-55-6684NjcagopommPomerene Hospital Repository (1 source)Spironolactone; Translations: [SPIRONOLACTONE]Drug Epjwitt18-71-8719 [facility] Rep[facility] Medications Current Medications MedicationDrug Class(es)DatesSig (Normalized)Sig (Original)acetaminophen 325 mg / oxyCODONE hydrochloride 5 mg oral tablet (1 source)Opioid AgonistStart: 12-30-2024 End: 40-96-6507yxbTUQPCZ-acetaminophen (PERCOCET) 5-325 MG per tablet Indications: Postoperative pain Take 1-2 tablets by mouth every 4-6 hours as needed for Pain for up to 7 days. Intended supply: 7 days. Take lowest dose possible to manage pain Max Daily Amount: 12 tablets 30 tablet 12/30/2024 01/06/2025 Activeaspirin 81 mg delayed release oral tablet (1 source)Platelet Aggregation Inhibitor, Nonsteroidal Anti-inflammatory Drug take 1 tablet by mouth once dailyaspirin 81 MG EC tablet Take 1 tablet by mouth daily Activecalcium chloride 0.0014 meq/ml / potassium chloride 0.004 meq/ml / sodium chloride 0.103 meq/ml / sodium lactate 0.028 meq/ml injectable solution (1 source)Start: 00-32-2023BnfdaHEFjxn, at 100 mL/hr, CONTINUOUS, Starting on Thu12/30/24 at 0930, Pre-op (day of surgery)empagliflozin 10 mg oral tablet (1 source)Sodium-Glucose Cotransporter 2 Inhibitortake 1 tablet by mouth once dailyempagliflozin (JARDIANCE) 10 MG tablet Take 1 tablet by mouth daily Active lactobacillus acidophilus [id number] unt / pectin 100 mg oral tablet (6 sources)take 1 tablet by mouth once daily at breakfastacidophilus-pectin, citrus 25 million cell -100 mg tablet Take 1 tablet by mouth daily with breakfas t. Activeleflunomide 20 mg oral tablet (6 sources)Antirheumatic AgentStart: 59-91-5897iekw 1 tablet by mouth in the morningleflunomide (ARAVA) 20 mg tablet Take 1 tablet (20 mg total) by mouth in the morning. 08/11/2018 Activelevothyroxine sodium 0.15 mg oral tablet (7 sources)l-ThyroxineStart: 64-06-1204rzer 1 tablet by mouth in the morning levothyroxine (SYNTHROID, LEVOTHROID) 150 MCG tablet Take 1 tablet (150 mcg total) by mouth in the morning. 07/14/2018 Activeliothyronine sodium 0.005 mg oral tablet (7 sources)l-TriiodothyronineStart: 58-85-3358naaq 1 tablet by mouth in the morningliothyronine (CYTOMEL) 5 MCG tablet Take 1 tablet (5 mcg total) by mouth in the morning. 08/27/2018Activeloratadine 10 mg oral tablet (6 sources)take 1 tablet by mouth in the morningloratadine (CLARITIN) 10 mg tablet Take 1 tablet (10 mg total) by mouth in the morning. Qzfqpz06 hr metoprolol succinate 25 mg extended release oral tablet (1 source)beta-Adrenergic Blockertake 1 tablet by mouth once dailymetoprolol succinate (TOPROL XL) 25 MG extended release tablet Take 1 tablet by mouth daily ActiveMultiple Vitamins-Minerals (THERAPEUTIC MULTIVITAMIN-MINERALS) tablet (1 source)take 1 tablet by mouth once dailyMultiple Vitamins-Minerals (THERAPEUTIC MULTIVITAMIN-MINERALS) tablet Take 1 tablet by mouth daily Active Multivitamin preparation (6 sources)multivitamin (MULTI-DAY ORAL) Take by mouth. Activemultivitamin (MULTI-DAY ORAL) Take by mouth. 0 Activeomeprazole 40 mg delayed release oral capsule (10 sources)Proton Pump InhibitorStart: 72-21-5791gcdq 1 capsule by mouth at bedtimeomeprazole (PriLOSEC) 40 mg capsule TAKE 1 CAPSULE (40 MG TOTAL) BY MOUTH IN THE MORNING AND AT BEDTIME. 60 capsule 1 07/13/2024 ActiveStart: 03-02-2024 End: 25-25-4482kmsg 1 capsule by mouth at bedtimeomeprazole (PriLOSEC) 40 mg capsule TAKE 1 CAPSULE (40 MG TOTAL) BY MOUTH IN THE MORNING AND AT BEDTIME. 60 capsule 1 05/06/2024 07/13/2024 Discontinuedtake 2 capsules by mouth once daily omeprazole (PRILOSEC) 20 MG delayed release capsule Take 2 capsules by mouth daily Active End: 77-16-4838ipyvwbjzfg (PriLOSEC) 40 mg capsule Take 20 mg by mouth in the morning and at bedtime. 03/02/2024 Discontinuedpeg 3350-sod sulf,fupq-ktq-ola 178.7-7.3-0.5 gram recon soln (1 source)Start: 10-22-2023 End: 33-04-3552kls 3350-sod sulf,ppay-bbk-zrh 178.7-7.3-0.5 gram recon soln Indications: Family history of malignant neoplasm of colon Take 1 kit by mouth once daily for 1 dose. Please see instructional sheet givenby physicians office. 1 each 0 10/22/2023 10/23/2023 Activespironolactone 25 mg oral tablet (1 source)Aldosterone Antagonisttake 1 tablet by mouth once dailyspironolactone (ALDACTONE) 25 MG tablet Take 1 tablet by mouth daily Activeturmeric extract 500 mg oral capsule (7 sources)take 1 tablet by mouth once dailyTurmeric 500 MG TABS Take 500 mg by mouth Daily ActiveTURMERIC ORAL Take by mouth daily. ActiveTURMERIC ORAL Take by mouth daily. 0 Active Completed/Discontinued Medications MedicationDrug Class(es)DatesSig (Normalized)Sig (Original)pantoprazole 40 mg delayed release oral tablet (1 source)Proton Pump InhibitorStart: 08-04-2018 End: 95-03-3617gthfxtuurxvd (PROTONIX) 40 mg EC tabletvancomycin (VANCOCIN) 1,000 mg in sodium chloride 0.9 % 250 mL IVPB (Alrk1Lyn) (1 source)Start: 12-30-2024 End: ,000 mg (11.6 mg/kg), IntraVENous, at 250 mL/hr, Administer over 60 Minutes, [place] TO O.R., On Thu12/30/24 at 0930, For 1 dose, Use 20mm (Blue) Cpgi5Mdd Adapter Preparation instructions: Attach medication vial to one 20mm (Blue) Yogy3Wlv adapter. Aldair fluid bag with adapter, mix, and administer per order.24 hr venlafaxine 37.5 mg extended release oral capsule (1 source)Serotonin and Norepinephrine Reuptake InhibitorStart: 06-27-2022 End: 06-94-2454cess 1 capsule by mouth every twenty-four hours in the morning venlafaxine XR (EFFEXOR XR) 37.5 mg 24 hr capsule Indications: Vasomotor symptoms due to menopause Take 1 capsule (37.5 mg total) by mouth in the morning. 30 capsule 2 06/27/2022 10/22/2023 Discontinued (Therapy completed) Problems Active Problems Problem ClassificationProblemDateDocumented DateEpisodic/ChronicAcute bronchitis (5 sources)Acute bronchitis, unspecified; Translations: [ACUTE BRONCHITIS UNSPECIFIED]Onset: 89-56-6789QtdtkkynRgryhmkljq heart failure; nonhypertensive (6 sources)Chronic combined systolic (congestive) and diastolic (congestive) heart failure; Translations: [Unspecified systolic (congestive) heart failure] Onset: 91-09-0929LwbhbjfDaffteiv atherosclerosis and other heart disease (6 sources)Atherosclerotic heart disease of [place] coronary artery without angina pectoris; Translations: [Coronary atherosclerosis due to lipid rich plaque]Onset: 49-64-6240NyfpyktEtbesguau of lipid metabolism (4 sources)Pure hypercholesterolemia, unspecified; Translations: [Mixed hyperlipidemia]Onset: 75-82-4847FabmhvtAvtajtoqxk disorders (2 sources)Gastro-esophageal reflux disease without esophagitis; Translations: [Gastro-esophageal reflux disease without esophagitis]Onset: 43-17-5293Whvzmti Essential hypertension (2 sources)Essential (primary) hypertension; Translations: [Essential (primary) hypertension]Onset: 11-73-8447SstfdusYrpekptotlzi with complications and secondary hypertension (2 sources)Hypertensive heart disease with heart failure; Translations: [Hypertensive heart disease with heartfailure]Onset: 86-93-6796BpsobhkTuuve nervous system disorders (1 source)Postoperative pain ; Translations: [Other acute postprocedural pain] 74-77-4717XfywahsvHuqak nervous system disorders (1 source)Other acute postprocedural pain; Translations: [Other acute postprocedural pain]Onset: 19-43-7050BtjycttmEldqb screening for suspected conditions (not mental disorders or infectious disease) (13 sources)Encounter for screening mammogram for malignant neoplasm of breast; Translations: [Abnormal result of other cardiovascular function study]Onset: 99-99-3505OckoumtlHlmjlgnj codes; unclassified (1 source)Family history of malignant neoplasm of breast; Translations: [FAMILY HX MALIG NEOPLASM OF BREAST]Onset: 50-99-9903IsumykhgLviepwmvxsxd (3 sources)CONTACT W/AND (SUSP) EXPOS COVID-19; Translations: [CONTACT W/AND (SUSP) EXPOS COVID-19]Onset: 59-96-8670Xhdwf infection (1 source)COVID-19; Translations: [COVID-19]Onset: 04-05-2022 Past or Other Problems Problem ClassificationProblemDateDocumented DateEpisodic/ChronicNonspecific chest pain (2 sources)Other chest pain; Translations: [Other chest pain]Onset: 02-13-2025 EpisodicOther aftercare (1 source)Other assisted (current) drug therapy; Translations: [OTH DOG AND CAT FOOD COOK CURRENT DRUG THERAPY]Onset: 59-93-6584MpusvvhwYxzxt connective tissue disease (1 source)Complete rotator cuff tear or rupture of right shoulder, not specified as traumatic; Translations: [Complete rotator cuff tear or rupture of right shoulder, not specified as traumatic]Onset: 39-11-0752MguxbqsaNebec lower respiratory disease (4 sources)Shortness of breath; Translations: [SHORTNESS OF BREATH]Onset: 40-33-7789FisoydrbQeokcetg codes; unclassified (1 source)Family history of cancer of colon; Translations: [Family history of malignant neoplasm of digestiveorgans]07-87-9842HtviimoeBysnaygw codes; unclassified (2 sources)Other specified postprocedural states; Translations: [Other specified postprocedural states]Onset: 46-26-8251TtasxkejNgozhiwsj and history of mental health and substance abuse codes (1 source)Personal history of nicotine dependence; Translations: [PERSONAL HISTORY OF NICOTINE DEPEND]Onset: 79-39-4113ZuhlypdaQlqkedgsqzrf (1 source)CONTACT W/AND (SUSP) EXPOS COVID-19; Translations: [CONTACT W/AND (SUSP) EXPOS COVID-19]Onset: 04-02-2022 Results Test NameValueInterpretationReference RangeFacilityOffice Visiton 07-05-2025 Follow-up [id number] Deepa Sears 1960 F Date Provider Department [place] 07/05/2025 [id number] CARTAGENA NI [facility] Family History Problem Relation Age of Onset Coronary artery disease Mother Heart attack Maternal Grandmother Hypertension Maternal Grandmother Other Maternal Grandfather Family Status - Relation Status Age at Mother Father Alive Brother Alive Maternal Grandmother Maternal Grandfather Level of Service:25399 DE OFFICE/OUTPATIENT ESTABLISHED MOD MDM 30 MIN Reason for Visit and Comments: Follow-up [181369] - Patient is here today for a 3 month follow up with Echo.Patient will possible be having shoulder surgery.Patient states she has swelling on the top of her feet. Patient would like to have blood pressure changed due the fatigue. would like her to have Nebivolol due to it not making him fatigued. Patient states she has low thyroid. Hypertension [125838] Ischemic heart disease [Other] Coronary Artery Disease [187] Congestive Heart Failure [127] Hyperlipidemia [182] Fatigue [46] - Increased fatigue Edema [[id number]] - Bilateral feet swelling. Left foot worse than right Palpitations [563368] - Can hear throbbing /heart beat when she lays down in bedNormalUniParkview HealthOrders Onlyon 86-59-4816Lpaiai [id number] Deepa Sears 1960 F Date Provider Department Center 05/23/2025 [id number], HISTORICAL [facility] Alejandro Anne Family History Problem Relation Age of Onset Coronary artery disease Mother Heart attack Maternal Grandmother Hypertension Maternal Grandmother Other Maternal Grandfather Family Status - Relation Status Age at Mother Father Alive Brother Alive Maternal Grandmother Maternal GrandfaKindred Hospital DaytonResults Follow-Upon 19-71-4277Ygeibid Follow-[id number] Deepa Sears 1960 F Date Provider Department Center 05/16/2025 [id number] MEIER NI Nathan Family History Problem Relation Age of Onset Coronary artery disease Mother Heart attack Maternal Grandmother Hypertension Maternal Grandmother Other Maternal Grandfather Family Status - Relation Status Age at Mother Father Alive Brother Alive Maternal Grandmother Maternal GrandfatherNCleveland Clinic Fairview HospitalOrders Onlyon 86-73-8860Tyfigt [id number] Deepa Sears 1960 F Date Provider Department Center 05/05/2025 [id number], HISTORICAL [facility] Family History Problem Relation Age of Onset Coronary artery disease Mother Heart attack Maternal Grandmother Hypertension Maternal Grandmother Other Maternal Grandfather Family Status - Relation Status Age at Mother Father Alive Brother Alive Maternal Grandmother Maternal GrandfatherNCleveland Clinic Fairview Hospital36on Regarding lab results from 03/07/2025: MD Angelic Franco MA Please verify that she is [...] made her aware. Lab order emailed to her.[facility]36on 91-21-298928HtpdyMD Deepa Franco MA BMP after starting Entresto look good continue current management Advised patient of Dr. Valenzuela's findings. Patient verbalized understanding. [facility] CenterOrders Onlyon 04-66-5923Wjmzvp Only [id number] Deepa Sears 1960 F Date Provider Department Center 03/15/2025 ANGELIC HASTINGS NI Anne Family History Problem Relation Age of Onset Coronary artery disease Mother Heart attack Maternal Grandmother Hypertension Maternal Grandmother Other Maternal Grandfather Family Status - Relation Status Age at Mother Father Alive Brother Alive Maternal Grandmother Maternal GrandfatherNCleveland Clinic Fairview Hospital36on This report has been cancelled.[facility] CenterOffice Visiton 67-02-5811Covssw-up [id number] Deepa Sears 1960 F Date Provider Department Center 02/13/2025 [id number] MEIER Family History Problem Relation Age of Onset Coronary artery disease Mother Heart attack Maternal Grandmother Hypertension Maternal Grandmother Other Maternal Grandfather Family Status - Relation Status Age at Mother Father Alive Brother Alive Maternal Grandmother Maternal Grandfather Level of Service:92097 DE OFFICE/OUTPATIENT ESTABLISHED MOD MDM 30 MIN Reason for Visit and Comments: Follow up PCI [Other] Hypertension [737590] Coronary Artery Disease [187]NormalSelect Medical Specialty Hospital - [facility]ron 93-64-7618HIIR Attestation signed by Felipe Ferrara MD at 02/03/2025 8:19 AM I personally spoke with and examined Mrs. Sears and agree with above. Patient: Deepa Sears Procedure Information Date/Time: 02/03/25829 Procedure: Percutaneous coronary intervention - PC APPROVED Location: [facility] [place] [address] / [facility] (Cath) Providers: Felipe Ferrara [...] products. Plan discussed with attending. Additional Equipment RequestsNormalUniversMcCullough-Hyde Memorial Hospital 89-99-3005DO Attestation signed by Felipe Ferrara MD at [...] the expected risks and agrees to proceed. History Of Present Illness Deepa Sears is [...] resp. rate 16, SpO2 (more content not included)...[facility] CenterNURSNOTEon 02-03-2025 NURSNOTERN educated pt on d/c instructions. This included: [...] wheeled off of unit with all of belongings.[facility]36on 48-62-342168Dtdqwcq will wait until after PCI on 02/03/2025 to have COVID vaccination. Heydi Lozano [facility]36Patient left voicemail requesting a call back- No details given. Heydi Lozano [facility] Memorial HospitalBASIC METABOLIC PANELon 08-14-7319Vuoiz gap [Moles/Vol]9 mmol/LNormal5-15Pro[facility] Medical CenterComment on above:Performed By: #### BMP #### [facility] ([facility]) [address] [place] [address] VIRCalcium [Mass/Vol]9.7 mg/dLNormal8.5-10.5PSelect Medical Specialty Hospital - Cleveland-FairhillComment on above:Performed By: #### BMP #### [facility] ([facility]) [address] [place] [address] VIRChloride [Moles/Vol]101 mmol/ORirtth37-608EpzXdpezaAscension Seton Medical Center AustinComment on above:Performed By: #### BMP #### [facility] ([facility]) [address] [place] [address] VIRCO2 [Moles/Vol]29 mmol/XUzwgkq79-54GuvJhofleSelect Medical Specialty Hospital - Cleveland-FairhillComment on above:Performed By: #### BMP #### [facility] ([facility]) [address] [place] [address] VIRCreatinine [Mass/Vol]0.62 mg/dLNormal0.40-1.00ProAscension Seton Medical Center AustinComment on above:Result Comment: METHOD TRACEABLE TO IDMS STANDARDPerformed By: #### BMP #### [facility] ([facility]) [address] [place] [address] VIREGFR (CKD-EPI) NON-RACE DEPENDENT>^90Normal>=60ProAscension Seton Medical Center AustinComment on above:Result Comment: Reported eGFR is based on the CKD-EPI 2020 equation that does not use a race coefficient.Performed By: #### BMP #### [facility] ([facility]) [address] [place] [address] VIRGlucose [Mass/Vol]100 mg/nNCghc80-92BnkQjafzvAscension Seton Medical Center AustinComment on above:Performed By: #### BMP #### [facility] ([facility]) [address] [place] [address] VIRPotassium [Moles/Vol]4.3 mmol/LNormal3.5-5.0ProAscension Seton Medical Center AustinComment on above:Performed By: #### BMP #### [facility] ([facility]) [address] [place] [address] VIRSodium [Moles/Vol]139 mmol/RLteryb319-753OlvRrnhnr Fremont HospitalComment on above:Performed By: #### BMP #### [facility] ([facility]) [address] [place] [address] VIRUrea nitrogen [Mass/Vol]11 mg/dLNormal5-27ProAscension Seton Medical Center AustinComment on above:Performed By: #### BMP #### [facility] ([facility]) [address] [place] [address] VIRCBC WITH AUTO DIFFERENTIALon 31-93-5347JUMOFTURX ABSOLUTE COUNT (10*3/UL) BY AUTOMATED COUNT0.1 10*3/uLNormal0.0-0.2PSelect Medical Specialty Hospital - Cleveland-FairhillComapex medical center on above:Performed By: #### CBCA #### [facility] ([facility]) [address] [place] [address] VIRBASOPHILS RELATIVE PERCENT BY AUTOMATED COUNT1.4 %Normal [facility] HospitalComment on above:Performed By: #### CBCA #### [facility] ([facility]) [address] [place] [address] VIRCELLAVISION DIFFERENTIAL TYPEAUTOMATED DIFFERENTIALNormal [facility] HospitalComment on above:Performed By: #### CBCA #### [facility] ([facility]) [address] [place] [address] VIREosinophils (Bld) [#/Vol]0.2 10*3/uLNormal0.0-0.4[facility] HospitalComment on above:Performed By: #### CBCA #### [facility] ([facility]) [address] [place] [address] VIREOSINOPHILS RELATIVE PERCENT BY AUTOMATED COUNT4.9 %Normal [facility] HospitalComment on above:Performed By: #### CBCA #### [facility] ([facility]) [address] [place] [address] VIRErythrocyte distribution width (RBC) [Ratio]12.8 %Normal 11.5-15[facility] HospitalComment on above:Performed By: #### CBCA #### [facility] ([facility]) [address] [place] [address] VIRHematocrit (Bld) [Volume fraction]42.5 %Peyzjp27-02ResSjobvpAscension Seton Medical Center AustinComment on above:Performed By: #### CBCA #### [facility] ([facility]) [address] [place] [address] VIRHemoglobin (Bld) [Mass/Vol]14.2 g/uNJitxyf60.7-15.5PSelect Medical Specialty Hospital - Cleveland-FairhillComment on above:Performed By: #### CBCA #### [facility] ([facility]) [address] [place] [address] VIRLYMPHOCYTES ABSOLUTE COUNT (10*3/UL) BY AUTOMATED COUNT1.7 10*3/uLNormal1.0-3.5PSelect Medical Specialty Hospital - Cleveland-FairhillComment on above:Performed By: #### CBCA #### [facility] ([facility]) [address] [place] [address] VIRLYMPHOCYTES RELATIVE PERCENT BY AUTOMATED COUNT38.0 %Normal [facility] HospitalComment on above:Performed By: #### CBCA #### [facility] ([facility]) [address] [place] [address] VIRMCH (RBC) [Entitic mass]30.5 oaKttylj51-57AdtDoomawAscension Seton Medical Center AustinComment on above:Performed By: #### CBCA #### [facility] ([facility]) [address] [place] [place] [address] VIRMCHC (RBC) [Mass/Vol]33.5 g/pWRrrymu94-52UqeQanuvcAscension Seton Medical Center AustinComment on above:Performed By: #### CBCA #### [facility] ([facility]) [address] [place] [address] VIRMCV (RBC) [Entitic vol]91 pMGimprj07-060YcwUoohgo Fremont HospitalComment on above:Performed By: #### CBCA #### [facility] ([facility]) [address] [place] [address] VIRMONOCYTES ABSOLUTE COUNT (10*3/UL) BY AUTOMATED COUNT0.5 10*3/uLNormal0.0-0.9[facility] Citizens HospitalComment on above:Performed By: #### CBCA #### [facility] ([facility]) [address] [place] [address] VIRMONOCYTES RELATIVE PERCENT BY AUTOMATED COUNT10.3 %Normal [facility] HospitalComment on above:Performed By: #### CBCA #### [facility] ([facility]) [address] [place] [address] VIRNEUTROPHILS ABSOLUTE COUNT BY AUTOMATED COUNT2.1 10*3/uL Normal1.5-6.6[facility] Citizens HospitalComment on above:Performed By: #### CBCA #### [facility] ([facility]) [address] [place] [address] VIRNEUTROPHILS RELATIVE PERCENT BY AUTOMATED COUNT45.4 %Normal [facility] HospitalComment on above:Performed By: #### CBCA #### [facility] ([facility]) [address] [place] [address] VIRPlatelet mean volume (Bld) [Entitic vol]7.6 fLNormal7-12 [facility] HospitalComment on above:Performed By: #### CBCA #### [facility] ([facility]) [address] [place] [address] VIRPlatelets (Bld) [#/Vol]246 10*3/iBGykpcb449-214OllKemdfa Fremont HospitalComment on above:Performed By: #### CBCA #### [facility] ([facility]) [address] [place] [address] VIRRBC COUNT4.67 X10E12/LNormal3.8-5.2[facility]rem[facility] Medical CenterComment on above:Performed By: #### CBCA #### [facility] ([facility]) [address] [place] [address] VIRWBC (Bld) [#/Vol]4.5 10*3/uLNormal4-11Pro[facility]rem[facility] Medical CenterComment on above:Performed By: #### CBCA #### [facility] ([facility]) [address] [place] [address] VIROrders Onlyon 83-30-3389Zmlbor [id number] Deepa Sears 1960 F Date Provider Department Center 01/25/2025 DELIA HERNADEZ [facility] VASC LAB NM HeartVAS Family History Problem Relation Age of Onset Coronary artery disease Mother Heart attack Maternal Grandmother Hypertension Maternal Grandmother Other Maternal Grandfather Family Status - Relation Status Age at Mother Father Alive Brother Alive Maternal Grandmother Maternal GrandfatherNormalPomerene Hospital36on Patient called she's still coughing out of the blue and sneezing since replacing losartan with spironolactone for cough. She says she's also getting extreme hot flashes . Hasn't been checking her BP recently. Just had shoulder surgery. Any recommendations?NormalPomerene HospitalOffice Visiton 06-42-3722Brhpfp-up [id number] Deepa Sears 1960 F Date Provider Department Center 12/21/2024 17962-VITNOXCHUCK REYES NI Anne Family History Problem Relation Age of Onset Coronary artery disease Mother Heart attack Maternal Grandmother Hypertension Maternal Grandmother Other Maternal Grandfather Family Status - Relation Status Age at Mother Father Alive Brother Alive Maternal Grandmother Maternal Grandfather Level of Service:72264 DE OFFICE/OUTPATIENT ESTABLISHED LOW MDM 20 [facility] HospitalOrders Onlyon [id number] [id number] RenueDepa Fernandez 1960 F Date Provider Department Center 12/21/2024 Noah-DEEPA MORRISON CARD Alejandro Anne Family History Problem Relation Age of Onset Coronary artery disease Mother Heart attack Maternal Grandmother Hypertension Maternal Grandmother Other Maternal Grandfather Family Status - Relation Status Age at Mother Father Alive Brother Alive Maternal Grandmother Maternal GrandfatherNCleveland Clinic Fairview HospitalMAMM DIAGNOSTIC UNILAT RT W CADon 05-68-8363HICN DIAGNOSTIC UNILAT RT W CADMAMM DIAGNOSTIC UNILAT RT W CAD DEEPA IZQUIERDO RENU 1960 [id number] EXAM: MAMM DIAGNOSTIC UNILAT RT W CAD, [...] PACS system with written report describing an asymmetrysomewhere in the right breast without any further detail or localization. There are no suspicious masses, calcifications, or areas of architectural distortion, stable back to our mammogram of 01/02/2022. IMPRESSION: No mammographic evidence of malignancy. BI-RADS: BI-RADS 1 - Negative RECOMMENDATION: Routine screening mammogram in 1 year. Patient was given the results before leaving the department. Finalized by Holden Tinoco MD on 12/20/2024 12:53 PM 1 b MAMM [address] [place] [address]on [id number] Dr. Valenzuela - patient can stop losartan and start spironolactone 25mg daily. Patient made aware. RX sent to her pharmacy.[facility] Hospitalon [id number] Attestation signed by Daxa Valenzuela MD at 12/10/2024 11:05 AM I personally saw and examined the patient on the same date of service as resident/fellow Dr Garcia. I discussed the findings and therapeutic plan with the resident/fellow Dr Garcia. I agree with the documentation, except for any edits/updates below. Teaching Physician's Revisions: None Daxa Valenzuela MD, [facility] H&P reviewed. The patient was examined and there are no changes to the H&P. Mrs. Sears, a 64 year old female patient is scheduled for coronary angiogram for newly reduced EF via left radial access.[facility] Medical CenterNURSNOTEon 28-88-3825VYPQJVLJFR educated pt on d/c instructions. This included: [...] using arm for 24 hours for radial sites.[facility] Medical CenterNURSNOTEThis report has been cancelled.[facility]36on [id number] called stating since starting metoprolol and losartan on 11/21/2024 she has had a dry cough and a slight tickle in the throat. Would you like to make a change? She is scheduled for heart cath on 12/07 with you.[facility] Medical CenterTelephoneon [id number] Deepa Sears 1960 Provider Department Center 12/05/2024 ANGELIC HASTINGS [facility] Family History Problem Relation Age of Onset Coronary artery disease Mother Heart attack Maternal Grandmother Hypertension Maternal Grandmother Other Maternal Grandfather Family Status - Relation Status Age at Mother Father Alive Brother Alive Maternal Grandmother Maternal GrandfatherNCleveland Clinic Fairview HospitalOrders Onlyon 49-27-5728Hlcxla [id number] Deepa Sears 1960 Provider Department Center 11/21/2024 DEEPA DE LA [place] [facility] Family History Problem Relation Age of Onset Heart attack Maternal Grandmother Hypertension Maternal Grandmother Other Maternal Grandfather Family Status - Relation Status Age at Maternal Grandmother Maternal GrandfatherNTriHealth Bethesda Butler Hospitalon 10-34-6437JC [place] [facility] Note Reason for cardiology [...] fraction 35% 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 [...] long. Regarding family history: Maternal grandmother had [place] in her left 70s, maternal grandfather had [...] calcium 8.8 Total bi (more content not included)...NormalPomerene Hospital Office Visiton 11-06-4003Vailct-up [id number] Deepa Sears 1960 F Date Provider Department Center 11/07/2024 77157-VMZRSYDAXA VALENZUELA Family History Problem Relation Age of Onset Heart attack Maternal Grandmother Hypertension Maternal Grandmother Other Maternal Grandfather Family Status - Relation Status Age at Maternal Grandmother Maternal Grandfather Level of Service:86778 DE OFFICE/OUTPATIENT NEW MODERATE MDM 45 MINUTES Reason for Visit and Comments: Cardiac Stress Test [489] - Denies chest pain and SOB. Abnormal ECG [293] - She had ECG on 10/25 for pre-surgery testing. Dr. Bautista ordered stress test due to abnormal ECG. Edema [[id number]] Palpitations [051700] - Feels palpitations sometimes in the mornings when she's still lying in bed.[facility] 02-19-2024 LSpecimen: [id number] Received: 02/19/24 Status: THOMAS Jean Pierre Num: [id number] Spec Type: Surgical Subm Dr: Lee Quiles DO Tissues: A Stomach - Biopsy/Polyp (ANTRUM) B Esophagus Biopsy (GE JUNCTION) Procedures: HE/4, Gross/Micro L4/2 Age/ Patient Sex Location Account Attending Physician Deepa Sears 63/F [place] [id number] Lee Quiles DO SPEC NUM: [id number] RECD: 02/19/24 STATUS: THOMAS JEAN PIERRE NUM: [id number] PREETI: 02/19/[address] [facility] [address]: Lee Quiles DO ENTERED: 02/19/24 [facility] DR: Alejandro,Nile SPEC TYPE: Surgical DEPT: CARINE STAHL ORDERED: [...] Mild gastritis and esophagitis, hiatal hernia Specimen: [id number] Received: 02/19/24 Status: THOMAS Sy Num: [id number] Spec Type: Surgical Subm Dr: Lee Quiles DO Tissues: A Stomach - Biopsy/Polyp (ANTRUM) B Esophagus Biopsy (GE JUNCTION) Procedures: Tal AMARAL/Anusha L4/2 Patient: Deepa Sears [id number] (Continued) Specimen: [id number] Received: 02/19/24 (Continued) Signed (signature on file) Darshan Iniguez MD 02/22/242036 Specimen: [id number] Received: 02/19/24 Status: THOMAS Sy Num: [id number] Spec Type: Surgical Subm Dr: Lee Quilse DO Tissues: A Stomach - Biopsy/Polyp (ANTRUM) B Esophagus Biopsy (GE JUNCTION) Procedures: HE/4, Gross/Micro L4/2 Patient: RenuDeepa [id number] (Continued) Specimen: [id number] Received: 02/19/24-130 (Continued) Gross Description Received are 2 formalin [...] 0.1 cm, entirely submitted in B1. TW [facility] Codes 76380O8 Specimen: [id number] Received: 02/19/24-1309 Status: THOMAS Sy Num: [id number] Spec Type: Surgical Subm Dr: Lee Quiles DO Tissues: A Stomach - Biopsy/Polyp (ANTRUM) B Esophagus Biopsy (GE JUNCTION) Procedures: HE/4, Gross/Micro L4/2 Patient: Deepa Sears [id number] (Continued) Signed (signature on file) Darshan Iniguez MD 02/22/242036[facility] Physician GroupSurgical PathologyOrdered By: Sheron Molina on 75-05-8519OouWzcrdbUC HealthXR CHEST 2 Von [id number] CHEST 2 VEXAM: XR CHEST 2 V HISTORY: Acute bronchitis [...] Electronically authenticated by: EDDIE OROSCO Date: 2022-12-24 16:25[facility] CenterMG MAMM SCREEN 3D DALE CADon 02-38-6166ZE MAMM SCREEN 3D DALE CAD Patient: DEEPA SEARS Exam Date: 10/20/2022 : 1960 Gender:F Ordering : DR TANO BAUTISTA . Admission #: [id number] Family : Order #: [id number] CLICK HERE TO VIEW EXAM RADIOLOGY REPORT [...] breast cancer at age 70. LOCATION: [facility] BREAST COMPOSITION: Heterogeneously dense,which may obscure [...] by: Cally Sevilla MD on 10/20/2022 at 12:00NoAshtabula [facility] Center Covid-19 PCR (CVDTB)on 17-63-1921NZGS-CoV-2 (COVID-19) RNA EMMANUEL+probe Ql (Unsp spec)Not detectedNormalNOT DETECTEDThe [facility] CenterComment on above:Result Comment: When diagnostic testing is negative, the [...] for this test is supported by the [place] of Health and Human Service's declaration that circumstances exist to justify the emergency use of in vitro diagnostics for the detection and/or diagnosis of the virus that causes COVID-19. This EUA will remain in effect for the duration of the COVID-19 declaration justifying emergency of IVDs, unless it is terminated or revoked by the FDA (after which the test may no longer be used).Performed By: #### CVDTBH #### [facility] [address] [place] [address] Dr. Cindi Coates A AND B AGon 56-53-6646VTXWTNFLQUOROParma Community General Hospital on above:Result Comment: Negative for Flu A protein angiten. Infection due to Flu A cannot be ruled out. FluA angiten in the sample may be below the detection limit of the test.Performed By: #### CMP, BNP, HSTROPN #### [place] [address] Dr. Cindi EspinalUBNEGEVRO [facility] on above: Result Comment: Negative for Flu B protein antigen. Infection due to Flu B cannot be ruled out. FluB antigen in the sample may be below the detection limit of the test.Performed By: #### CMP, BNP, HSTROPN #### [place] [address] Dr[address] Cindi IniguezINFLODALYS Rodriguez AGNegativeNormalNEGATIVE SEE COMMENTThe [facility] on above:Performed By: #### CMP, BNP, HSTROPN #### [facility] [address] [place] [address] Dr. Cindi Izaguirre AGNegativeNormalNEGATIVE SEE COMMENTThe [facility] on above:Performed By: #### CMP, BNP, HSTROPN #### [facility] [address] [place] [address] Dr. Cindi IniguezCovid-19 PCR ([facility])on 60-57-0851FPHH-CoV-2 (COVID-19) RNA EMMANUEL+probe Ql (Unsp spec)Not detectedNormalNOT DETECTEDThe [facility] Comment on above:Result Comment: When diagnostic testing is negative, the [...] for this test is supported by the [place] of Health and Human Service's declaration that circumstances exist to justify the emergency use of in vitro diagnostics for the detection and/or diagnosis of the virus that causes COVID-19. This EUA will remain in effect for the duration of the COVID-19 declaration justifying emergency of IVDs, unless it is terminated or revoked by the FDA (after which the test may no longer be used).Performed By: #### CVDTBH #### [facility] [address] [place] [address] Dr. Cindi Ramirez 31-88-3808Khpnpxeqixz peptide B (Bld) [Mass/Vol]583.0 pg/mL Normal<=900.0The [facility]opedic CenterComment on above:Performed By: #### CMP, BNP, HSTROPN #### [facility] [address] [place] [address] Dr. Cindi Rosales AUTO DIFFon 18-18-1587SGKK #0.0 103/ulNormal0.0-0.1The [facility]opedic CenterComment on above:Performed By: #### CBC #### [facility] [address] [place] [address] Dr. Cindi IniguezBasophils/100 WBC (Bld)0.2 %Normal0.2-2.0[facility] Comment on above:Performed By: #### CBC #### [facility] [address] [place] [address] Dr. Puente ChangEO #0.0 103/ulNormal0.0-0.7The [facility] CenterComment on above: Performed By: #### CBC #### [facility] [address] [address] [address] Cindi Serranoosinophils/100 WBC (Bld)0.3 %Critically low0.9-7.0The [facility] Hospital - Cincinnati Northment on above:Performed By: #### CBC #### [facility] [address] [place] [address] Dr. Cindi Serranorythrocyte distribution width (RBC) [Ratio]12.6 %Dpmhjn57.0-15.0 The [facility] CenterComment on above:Performed By: #### CBC #### [facility] [address] [place] [address] Dr. Cindi IniguezHematocrit (Bld) [Volume fraction]43.3 %Xzidjl67.0-48.0The [facility] CenterComment on above:Performed By: #### CBC #### [facility] [address] [place] [address] Dr. Cindi IniguezHemoglobin (Bld) [Mass/Vol]14.5 g/qTKolddm93.0-16.0The [facility] CenterComment on above:Performed By: #### CBC #### [facility] [address] [place] [address] Dr. Cindi Crawford #0.07 10e3/ulCritically high0.00-0.03The [facility] Comment on above:Performed By: #### CBC #### [facility] [address] [place] [address] Dr. Cindi Crawford %0.5 %Normal0.0-0.5The [facility] CenterComment on above: Performed By: #### CBC #### [facility] [address] [place] [address] Dr. Cindi VillalbaH #1.8 103/ulNormal1.2-3.8The [facility] CenterComment on above:Performed By: #### CBC #### [facility] [address] [place] [address] Dr. Cindi Childersmphocytes/100 WBC (Bld)12.9 %Critically low20.5-60.0The [facility] CenterComment on above:Performed By: #### CBC #### [facility] [address] [place] [address] Dr. Cindi Mensah DIFF REQNONormalThe [facility] CenterComment on above: Performed By: #### CBC #### [facility] [address] [place] [address] Dr. Cindi Rowe (RBC) [Entitic mass]30.5 pkRcqouk07.7-34.0The [facility]ountain HospitalComment on above:Performed By: #### CBC #### [facility] [address] [place] [address] Dr. Cindi Rowe (RBC) [Mass/Vol]33.5 g/kKSscecq47.9-35.2The [facility] CenterComment on above:Performed By: #### CBC #### [facility] [address] [place] [address] Dr. Cindi Rowe (RBC) [Entitic vol]91.0 vYRvkyme94.0-99.0[facility] HospitalComment on above:Performed By: #### CBC #### [facility] [address] [place] [address] Dr. Cindi Gomez #1.0 103/ulCritically high0.3-0.8ThParkview Health Montpelier Hospital Comment on above:Performed By: #### CBC #### [facility] [address] [place] [address] Dr. Cindi Paceocytes/100 WBC (Bld)7.1 %Normal1.7-12.0[facility] Comment on above:Performed By: #### CBC #### [facility] [address] [place] [address] Dr. Cindi Davis #10.9 103/ulCritically high1.4-6.5ThParkview Health Montpelier Hospital Comment on above:Performed By: #### CBC #### [facility] [address] [place] [address] Dr. Cindi Ricciutrophils/100 WBC (Bld)79.0 %Critically high43.0-75.0The [facility] CenterComment on above:Performed By: #### CBC #### [facility] [address] [address] [address] Cindi Stephenson mean volume (Bld) [Entitic vol]8.8 fLCritically low 9.5-13.5The [facility] CenterComment on above:Performed By: #### CBC #### [facility] [address] [place] [address] Dr. Cindi IniguezPLT207 103/nzDddxmm041-352Keq [facility] CenterComment on above: Performed By: #### CBC #### [facility] [address] [place] [address] Dr. Cindi IniguezRBC4.76 106/ulNormal4.20-5.40The [facility] CenterComment on above:Performed By: #### CBC #### [facility] [address] [place] [address] Dr. Cindi IniguezWBC13.8 103/ulCritically high4.0-11.0The [facility] CenterComment on above:Performed By: #### CBC #### [facility] [address] [place] [address] Dr. Cindi Perez CHEST WO W CONon 20-33-4210JEA CHEST WO W CONEXAMINATION:CTA CHEST WO W CON INDICATION:SHORTNESS OF BREATH, [...] of the chest. Electronically authenticated by: HERNÁN Gilliam: 2022-04-14 16:28NormMagruder Hospitale [facility] CenterPROF 14(COMP METB)on 98-29-3148Txujraz [Mass/Vol]3.5 g/dLNormal 3.4-5.0The [facility] CenterComment on above:Performed By: #### CMP, BNP, HSTROPN #### [facility] [address] [place] [address] Dr. Cindi IniguezAlbumin/Globulin [Mass ratio]1.0 {ratio}NormalThe [facility] CenterComment on above:Performed By: #### CMP, BNP, HSTROPN #### [facility] [address] [place] [address] Dr. Cindi Garcia [Catalytic activity/Vol]64 U/LNarxqf92-048Yay [facility] CenterComment on above:Performed By: #### CMP, BNP, HSTROPN #### [facility] [address] [place] [address] Dr. Cindi Chan [Catalytic activity/Vol]44 U/ZYkxcyt93-28Fgq [facility] CenterComment on above:Performed By: #### CMP, BNP, HSTROPN #### [facility] [address] [place] [address] Dr. Cindi Hemphill gap [Moles/Vol]12.5 mmol/LNormalThe [facility] Comment on above:Performed By: #### CMP, BNP, HSTROPN #### [facility] [address] [place] [address] Dr. Cindi Wells [Catalytic activity/Vol]21 U/TLlatze68-45Bbt [facility] CenterComment on above:Performed By: #### CMP, BNP, HSTROPN #### [facility] [address] [place] [address] Dr. Cindi IniguezBilirubin [Mass/Vol]0.3 mg/dLNormal0.2-1.0The [facility] Comment on above:Performed By: #### CMP, BNP, HSTROPN #### [facility] [address] [place] [address] Dr. Cindi IniguezCalcium [Mass/Vol]9.1 mg/dLNormal8.5-10.1The [facility] Comment on above:Performed By: #### CMP, BNP, HSTROPN #### [facility] [address] [address] [address] Cindi IniguezChloride [Moles/Vol]97 mmol/LCritically zed92-249Wel [facility] CenterComment on above:Performed By: #### CMP, BNP, HSTROPN #### [facility] [address] [address] [address] Cindi IniguezCO2 [Moles/Vol]29.8 mmol/EAcuhxo89.0-32.0The [facility] Comment on above:Performed By: #### CMP, BNP, HSTROPN #### [facility] [address] [place] [address] Dr. Cindi IniguezCreatinine [Mass/Vol]1.06 mg/dLCritically high0.55-1.02The [facility] CenterComment on above:Performed By: #### CMP, BNP, HSTROPN #### [facility] [address] [address] [address] Cindi SerranoGFR-AF COOK ISLANDER>60Normal>=60The [facility]opedic CenterComment on above:Performed By: #### CMP, BNP, HSTROPN #### [facility] [address] [address] [address] Cindi SerranoGFR-NON AF WORZWTHP23 mL/min/1.05w7Sjtfhdrljc low>=60The [facility] CenterComment on above:Performed By: #### CMP, BNP, HSTROPN #### [facility] [address] [address] [address] Cindi IniguezGlobulin (S) [Mass/Vol]3.6 g/dLNormalThe [facility] CenterComment on above:Performed By: #### CMP, BNP, HSTROPN #### [facility] [address] [address] [address] Cindi IniguezGlucose [Mass/Vol]109 mg/dLCritically xahz09-831Sle [facility] CenterComment on above:Performed By: #### CMP, BNP, HSTROPN #### [facility] [address] [address] [address] Cindi IniguezPotassium [Moles/Vol]4.3 mmol/LNormal3.5-5.1The [facility] Comment on above:Performed By: #### CMP, BNP, HSTROPN #### [facility] [address] [address] [address] Cindi IniguezProtein [Mass/Vol]7.1 g/dLNormal6.4-8.2The [facility] Comment on above:Performed By: #### CMP, BNP, HSTROPN #### [facility] [address] [place] [address] Dr. Cindi IniguezSodium [Moles/Vol]135 mmol/LCritically edn292-093Uwx [facility] CenterComment on above:Performed By: #### CMP, BNP, HSTROPN #### [facility] [address] [place] [address] Dr. Cindi IniguezUrea nitrogen [Mass/Vol]17.0 mg/dLNormal7.0-18.0The [facility] Northment on above:Performed By: #### CMP, BNP, HSTROPN #### [facility] [address] [place] [address] Dr. Cindi IniguezUrea nitrogen/Creatinine [Mass ratio]16.0 mg/mgNoAshtabula County Medical CenterComment on above:Performed By: #### CMP, BNP, HSTROPN #### [facility] [address] [place] [address] Dr. Cindi IniguezPROTIMEon 70-87-5548BXM Coag (PPP) [Relative time]0.93 {INR} NormalThe [facility]opedic CenterComapex medical center on above:Performed By: #### PTT, PT #### [facility] [address] [place] [address] Dr. Cindi Argueta GUIDELINESSEE BELOWFirelands Regional Medical CenterComment on above:Result Comment: DESIRED INR: 2.0 - 3.0 CONDITIONS NOT LISTED BELOW 2.5 - 3.5 FOR PROSTHETIC HEART VALVE REPLACEMENT 2.5 - 3.5 RECURRENT THROMBOSIS Performed By: #### PTT, PT #### [facility] [address] [place] [address] Dr. Cindi Forrester Coag (PPP) [Time]10.1 sNormal9.0-11.6The [facility] Comment on above:Performed By: #### PTT, PT #### [facility] [address] [place] [address] Dr. Cindi ForresterTon 86-84-7561wYAC Coag (Bld) [Time]23.8 fAbuxsr90.3-36.2[facility] CenterComment on above:Performed By: #### CMP, BNP, HSTROPN #### [facility] [address] [place] [address] Dr. Cindi Landon, HIGH SENSITIVITYon 70-12-7527IFCEEK81.4 pg/mLNormal 4.0-51.3The [facility] Northment on above:Result Comment: CUT-OFF POINTS HAVE BEEN ESTABLISHED BASED ON THE FOURTH UNIVERSAL DEFINITIONS OF MYOCARDIAL INFARCTION. THE UPPER REFERENCE LIMIT (URL) OF TROPONIN, DEFINED THE 99TH PERCENTILE OF cTnI DISTRIBUTION IN A REFERENCE POPULATION, HAS BEEN CONFIRMED THE DECISION THRESHOLD FOR TX DIAGNOSIS.Performed By: #### CMP, BNP, HSTROPN #### [facility] [address] [place] [address] Dr. Cindi IniguezCovid-19 PCR (CVDTBH)on 51-61-1250IOZU-CoV-2 (COVID-19) RNA EMMANUEL+probe Ql (Unsp spec)DetectedCritically abnormalNOT DETECTEDThe [facility] on above:Result Comment: This test is not yet approved or cleared by the [place] FDA. When there are no FDA-approved or cleared tests available, and other criteria are met, FDA can make tests available under an emergency access mechanism called an Emergency Use Authorization (EUA). The EUA for this test is supported by the [place] of Health and Human Service's (HHS's) declaration [...] no longer be used). Performed By: #### CMP, BNP, HSTROPN #### [facility] [address] [place] [address] Dr. Cindi Iniguez Vital Signs Date TimeVital SignValuePerforming CvlamvgynYrxyxsjj36-42-4327 15:13-0400Heart rate63 /Dajuan Madera MD Work Phone: Bon [facility]ively [facility] SystemXomujn40-82-5587 15:13-0400 Respiratory rate17 /Dajuan Madera MD Work Phone: Bon [facility] CenterSolaiemes [facility] SystemCksnfq64-89-6570 15:13-1780WuG8% (BldA) [Mass fraction]94 %Hayes Madera MD Work Phone: Bon Hively [facility] SystemClxocg20-85-0136 15:00-0400Diastolic blood thbagvpu67 mm[Hg]Hayes Madera MD Work Phone: Bon [facility] CenterSolaiemes [facility] SystemXhrtqi39-05-5668 15:00-0400Systolic blood mm[Hg]Hayes Madera MD Work Phone: Bon [facility] CenterSolaiemes [facility] SystemMkwsvs75-65-6299 14:33-0400Body mqzhcapwnov71.39 [degF]Hayes Madera MD Work Phone: Bon Hively [facility] SystemKafxge00-19-5377 09:36-0400Body qwnoff232.6 Christopher Madera MD Work Phone: Bon Hively [facility] CenterGeneva Mars Jspotu85-49-4916 14:57-0400Body mass index (BMI) [Ratio]32.61 kg/y2AjruhmHayes Madera MD Work Phone: Bon Hively [facility] CenterGeneva Mars Spfpye20-03-9471 14:57-0400Body .18 kgHayes Madera MD Work Phone: [facility]02-15-2024 15:23-0500Body mass index (BMI) [Ratio]36.39 kg/r2Oxuomsl Ross ELECTRONIC ORGAN TECHNICIAN-CABINET MAKER Work Phone: [facility]02-15-2024 15:23-0500Body fxpjgy08.16 kgSoraida Oneiloll ELECTRONIC ORGAN TECHNICIAN-CABINET MAKER Work Phone: [facility] Encounters Encounter DateEncounter TypeCare ProviderFacilityStart: 07-05-2025 End: 78-74-2296nfdvxjhfcnOHXUBMetroHealth Parma Medical Centertart: 79-69-7341acwqfrsvoeOAIULL [facility] HospitalStart: 05-09-2025 [facility] HospitalStart: 81-71-6545lnxdlytyeo STEVEN C [facility] HospitalStart: 24-80-2698pzddjlhxtiPAFOIYBanner [facility] HospitalStart: 02-13-2025 End: 64-80-2797pgfewchuiqSYYEKMetroHealth Parma Medical Centertart: 40-69-5382ufugprczsoNQKESCBanner Boswell Medical Center HospitalStart: 02-03-2025 ambulatoryCHRISChildren's Hospital of Columbustart: 02-03-2025 End: 18-32-5985vpseorcmchEBFKKYDUENKShelby Memorial Hospital Start: 61-70-9484mgrqbvdpauZDNPMXMEIEQ [facility] HospitalStart: 04-48-3711mipxxhxecjXIOWJO C [facility] HospitalStart: 12-30-2024 End: 35-63-4834tjsofughobPXVCFM C COPELANDMercy Teaberry HospitalStart: 12-30-2024 End: 42-98-7748Xoruifgdgq hospital visit by Armond Madera MD Work Phone: [facility] ORComment on above:Postoperative pain (Primary Dx)Start: 88-34-7076jpiunqgbnpGQNORXMount St. Mary Hospitaltart: 18-47-1762Tftrgxdjp for general adult medical examination without abnormal findingsSTAshtabula General Hospitaltart: 12-26-2024 End: 09-09-5801Llhhujdjtc hospital visit by physicianARIELLE LaboratoryStart: 12-21-2024 End: 16-15-4840wmetvigqliUFISMercy Hospitaltart: 12-20-2024 End: 39-64-1233vjwgstjwbjWEJVOKDKettering Health Behavioral Medical Centertart: 51-62-5761jgafnfhzmuIQWRJLXFall [facility] PPGStart: 12-07-2024 End: 99-14-5455wnzjzuqonvEZCSUMetroHealth Parma Medical Centertart: 11-07-2024 End: 07-21-0218auucpmruyzMPZWHMetroHealth Parma Medical Centertart: 07-13-2024 End: 27-90-9762NkoeemWwzkied E Grillis DO Work Phone: [facility] SurgeryStart: 05-06-2024 End: 20-97-4267YjskoaIcaoafv E Grillis DO Work Phone: [facility] SurgeryStart: 03-02-2024 End: 46-73-0658Tiioac OnlyNot In System Ref ProvProMedica Physicians General SurgeryStart: 02-19-2024 End: 68-53-1995gckmfhaytcOtneodzHeavenly Lucio [facility] Work Phone: Start: 02-19-2024 End: 78-18-3741Vxngmikr ReferredDO Lee Quiles Work Phone: [facility] Ctr-LAB Path Spec [facility] HospStart: 10-22-2023 End: 87-46-5741Uduwga outpatient new 30 minutesJessomari Hawkins ELECTRONIC ORGAN TECHNICIAN-CABINET MAKER Work Phone: [facility] SurgeryComment on above: Family history of malignant neoplasm of colon (Primary Dx)Start: 12-24-2022 End: 88-45-0505ewhcwrrnydJB DOUGLAS HOY .Facility:H7Tcplk: 10-20-2022 End: 62-49-0440dzbpbsujhnJN DOUGLAS HOY .Facility:H6Lyitu: 10-08-2022 End: 97-36-9251ojunzorwjdQM DOUGLAS HOY .Facility:W7Oodpx: 08-05-2022 End: 23-56-4091dlbcmegexaVANMLD CRAMERFacility:S2Cabwq: 04-14-2022 End: 63-05-3380apjnlcyaouWJWDFLQ D KATKOFacility:Y3Ihmyp: 04-02-2022 End: 95-57-5107rvhckvebqxVY DOUGLAS HOY .Facility:N9Lubis: 02-72-8467jnxzhxvtlc DR TANO BAUTISTA .Facility: Procedures DateProcedureProcedure DetailPerforming ClinicianStart: 58-66-0923Xoely i surg pathology gross examination onlyNot In System Ref ProvStart: 11-05-2023 ColonoscopyNot Ref ProvStart: 06-43-8740BamjomawbqhYnipkfw Carroll ELECTRONIC ORGAN TECHNICIAN-CABINET MAKER Work Phone: Plan of Treatment DateCare ActivityDetailAuthorStart: 40-64-3131Wlgtywhhvxs Syncytial Virus (RSV) or age 60 yrs+ (1 - 1-dose 75+ series)Respiratory Syncytial Virus (RSV) or age 60 yrs+ (1 - 1-dose 75+ series)[facility] CenterStart: 96-24-7975Ttthyggxi for malignant neoplasm of colonColonoscopyThe Christ Hospital SystemStart: 28-15-0102Pswysrbky vaccinationFlu vaccine (Season Ended)[facility] CenterStart: 12-30-2024 End: 07-14-6731Snkvjphsh to same day surgery efdsrf0812/30/2024 10:00 AM EDT - 12/30/2024 11:34 AM EDT Surgery [facility] [address] [place] [address] Hayes Madera MD [address] [place] [address] RIGHT SHOULDER ARTHROSCOPIC ROTATOR CUFF REPAIRMWHZ ORComment on above:RIGHT SHOULDER ARTHROSCOPIC ROTATOR CUFF REPAIR Start: 12-30-2024 End: 39-06-5652Apndrsnpmek shoulder rotator cuff repairOhio State University Wexner Medical Centertart: 34-05-3276Knwlrecadz hospital visit by onqpnesys48/25/2025 10:00 AM EDT Hospital Encounter [facility] [address] [place] [address] NhrapddyHayes Madera MD [address] [place] [address] [facility] ORStart: 47-37-8140Qkyuh BMI ScreeningAdult BMI ScreeningThe Christ Hospital SystemStart: 40-93-7836Czduman ScreeningTobacco ScreeningFrye Regional Medical Center Alexander Campustart: 99-35-3904Gxkdv BMI ScreeningAdult BMI ScreeningThe Christ Hospital SystemStart: 32-29-0135Ursumwp ScreeningTobacco ScreeningThe Christ Hospital SystemStart: 45-71-6043FYDNP-19 Vaccine ( season)COVID-19 Vaccine ( season)[facility] CenterStart: 56-49-7463QMUKQ-19 Vaccine ( season)COVID-19 Vaccine ( season)[facility] Hospitalart: 54-56-3874NUOZD-19 Vaccine ( season)COVID-19 Vaccine ( season)[facility] Alexander Campustart: 47-35-1270Gpbrlagku vaccinationInfluenza VaccineFrye Regional Medical Center Alexander Campustart: 11-05-2023 End: 73-43-2446Kdxunlkik to same day surgery arpfce9811/05/2023 11:00 AM EST - 11/05/2023 11:30 AM EST Surgery [facility] - Surgery [address] [place] [id number] Lee Quiles, DO [address] [place] [address], [place] [address] COLONOSCOPY DIAGNOSTIC / SCREENING [07767 (CPT)][facility] HospitalComment on above:COLONOSCOPY DIAGNOSTIC / SCREENING [49293 (CPT )]Start: 11-05-2023 End: 25-00-3709Xqoodomufzf flx dx w/collj spec when pfrmdCOLONOSCOPY DIAGNOSTIC / SCREENING Family history of colon cancer 11/05/2023 11:00 AM ESTFREMONT SURGERYStart: 88-74-0349Nvtvaellwh hospital visit by qsfbgwsfo16/29/2024 11:00 AM EST Hospital Encounter [facility] - Surgery [address] [place] [phone] Lee Quiles, DO [address] [place] [address] [facility] HospitalStart: 10-29-2023 End: 51-49-2225ivbtujvimi72/22/2024 2:10 PM EST Support Visit [facility] - [facility] Admit [address] [place] [phone] [facility] AdmitStart: 44-73-4884Rblqqigfw for malignant neoplasm of colonColonoscopyProCleveland Clinic Foundationca Health SystemStart: 2020 Respiratory Syncytial Virus (RSV) or age 60 yrs+ (1 - Risk 60-74 years 1-dose series)Respiratory Syncytial Virus (RSV) or age 60 yrs+ (1 - Risk 60-74 years 1-dose series)[facility] CenterStart: 2010 Administration of varicella zoster vaccineZoster (Shingles) Vaccine (1 of 2) [facility] SystemStart: 55-20-4516FYgJ,Tdap and Td Vaccines (1 - Tdap) DTaP,Tdap and Td Vaccines (1 - Tdap)[facility] SystemStart: 1979 DTaP/Tdap/Td vaccine (1 - Tdap)DTaP/Tdap/Td vaccine (1 - Tdap)Darryn Atkinson [facility] SystemStart: 23-21-9290Gpojo BMI Follow Up PlanAdult BMI Follow Up PlanFrye Regional Medical Center Alexander Campustart: 32-54-0180Icovgqomri ScreeningDepression ScreeningCincinnati Children's [facility] End: 30-22-6692PjubqqygzwrAvhlspslugk GI Routine Family history of malignant neoplasm of colon 1 Occurrences starting 10/22/2023 until 10/22/2024[facility] Work Phone: Comment on above:1 Occurrences starting 10/22/2023 until 10/22/2024 Immunizations Immunization DateImmunizationNotesCare ZwwaplruBsosegah39-85-2046iceuxcxga virus vaccine, unspecified formulationNot Ref [facility] Payers DatePayer CategoryPayerPolicy [id number] Care Other (unspecified)[facility] [place] [id number] 50-56-0365Fxcenpn Health InsuranceUNSAINT JOSEPH [facility] WEST CHOICE PLUS [id number] 2023-Present [phone] [place] [id number]5-6434Hufxiuj Health HhqxuwpvuT54[id number] 2.16.840.1.711114.3.579.2.593 02-33-7214Qcyouhx7827158 2.16.840.1.497827.3.579.2.32644-25-5071Zqikixp6018612 2.16.840.1.603028.3.579.2.02920-14-4248Tisuxym5417975 2.16.840.1.658194.3.579.[id number] 2.16.840.1.386521.3.579.2.93353-72-3583Sgqujxv6841825 2.16.840.1.257617.3.579.2.51480-01-5394Awgukcm4082557 2.16.840.1.669432.3.579.2.86338-46-3422Mrmxgwl247407438 2.16.840.1.568494.3.579.2.301103-49-3123Gbpkiwk685875508 2.16.840.1.435633.3.579.2.360002-19-3490Agglhuk27182888 2..840.1.577820.3.579.2.12020-94-6775Zvvdtou555113464 2.16.840.1.751605.3.579.2.832045-97-7922Vlohxnm310680378 2..840.1.092947.3.579.2.480286-50-9535Ajbtiwg148837946 2.16.840.1.444706.3.579.2.019756-98-6284Ypqhvvq033079419 2.16.840.1.778618.3.579.2.06[id number] 2.16.840.1.011475.3.579.2.446828-92-0071Rcyunnq509674596 2.16.840.1.680714.3.579.2.577788-85-8241Cvxzhnw184908526 2..840.1.224439.3.579.2.710121-42-2647Wxfjefh720627421 2.16.840.1.846407.3.579.2.367124-94-2023Mghqqpr Health [id number] 11-23-2269Gvsq-agc926505075 Social History DateTypeDetailFacilityTobacco smoking status NHISUnknown if ever smokedThe Christ Hospital SystemStart: 82-01-4988Hpy Assigned At [facility] Centertart: 12-31-2022 End: 25-79-3984Nznmjcv smoking status NHISEx-smokerThe Christ Hospital SystemStart: 08-28-1976 End: 56-69-4104Euhzkkt of tobacco useCurrent smokerThe Christ Hospital SystemStart: 08-28-1976 End: 99-79-8900Gzewybq of tobacco useCigarette SmokerThe [facility] Hospital System Start: 12-31-2022 End: 43-28-9126Hrjnmib use and exposureSmokeless tobacco non-userThe Christ Hospital SystemStart: 10-22-2023 End: 32-64-4957Ufqoaas intakeCurrent drinker of alcohol (finding)[facility] 5BARz Internationaltart: 12-30-2021 End: 75-97-4511Oizsyrp of Social functionThe Christ Hospital System Work Phone: Start: 12-30-2021 End: 07-15-4648Ricbvte Use Disorder Identification Test - Consumption [AUDIT-C] [facility] Work Phone: How often to you have a drink containing alcohol? Monthly or lessNorwalk Memorial Hospital Triage System Work Phone: How many standard drinks containing alcohol do you have on a typical day?5 or 6Norwalk [facility] Hospital Triage SystemHow often do you have 6 or more drinks on 1 occasion?Less than monthlyThe Christ Hospital SystemChildcare UnknownThe Christ Hospital SystemStart: 09-28-2018 End: 93-86-2317Qrayeij CommentsSt. John of God HospitalHuaqi Information Digital St. [facility] Riverside Hospitaltart: 54-06-9112Fbl Assigned At BirthNot on critical access hospitalThe Style Clubtart: 09-22-2018 End: 14-81-8294YmdBgtvim (finding)[facility] Procedure CodeEquipment CodeEquipment Original TextEquipment IdentifierDates [place] Sut L19.1mm Dia5.5mm Biocomposite Full Thrd Knotless - [id number]: 12-30-2024 Clinical Notes 10-22-2023 to 07-05-2025 Note Date & AqdzAvxhDmtbzbrj94-55-4931 [facility] Reason for cardiology visit: Follow-up for coronary artery disease, ischemic cardiomyopathy, hypertension, hyperlipidemia and tiredness Chief Complaint: Fatigue and tired HPI: 07/01/2025 Patient is here today for follow-up visit. She continues to be tired. She does not know if she snores or stops breathing. She denies any chest discomfort at rest or with exertion. She tries to walk as much as possible. She never been referred to cardiac rehab. 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 [...] long. Regarding family history: Maternal grandmother had TX in her left 70s, maternal grandfather had permanent pacemaker, mother had breast cancer, father had coronary artery disease and stents ROS: All systems were reviewed and they were negative except for the positive findings noted above in the history Past Medical History She has a past medical history of Abnormal ECG, CHF (congestive heart failure) (CMS/[facility]), Coronary artery disease, and Hyperlipidemia. 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 [...] long. Regarding family history: Maternal grandmother had TX in her left 70s, maternal grandfather had [...] , Rfl: metoprolol suc (more content not included)...[facility] 12-30-2024 Hospital Discharge instructions* Discharge Instructions* Hayes Madera MD - 12/30/2024 2:44 PM EDT SAME [...] for any questions regarding your surgery. Call [phone] forurgent questions after 5PM until 8AM 10. Call [...] dressing. 12/30/2024 2:43 PM documented in [place] encounterBon [place] [address]-21-2025 History of Present illness Narrative* Yennifer Fuentes RN - 12/26/2024 3:04 PM EDT [facility] Preadmission Testing Name: Deepa Sears : 1960 Patient (home) Procedure: RIGHT SHOULDER ARTHROSCOPIC ROTATOR CUFF REPAIR - Right Date of Procedure: 12/30/2024 Surgeon: Hayes Madera MD Ht: 162.6 cm (5' 4 ) [...] [x] Ride Home [x] No Jewelry/Contact Lenses/Nail Tajik [] Prep/Lax/Clear Liquids [] Chlorhexidene DOS Patient Needs [] HCG [] Blood Sugar [] PT/INR [] T&S Do you have any metal allergies? [] Yes [x] No If yes, to what metals: Patient instructed on the pre-operative, intra-operative, and post-operative process? Yes Medication instructions reviewed with patient? Yes documented in this encounterBon [facility] NoteSUBJECTIVE Reason for Visit: Deepa Sears is a [...] EF of 35%. She worked as a machine egg washer with heavy physical activity and denied exertional [...] the day. Family history was notable for TX in her maternal grandmother (late 70s), a [...] lightheadedness, or dizziness. 11/07/2024 office visit (Dr. Valenzuela): Past Medical History: Diagnosis Date Abnormal ECG [...] breath Penicillins Swelling Sulf (more content not included)...[facility]04-02-2025 NotePatient: Deepa Sears Procedure Information Date/Time: 12/07/24 0830 Procedure: Coronary angiography - PC APPROVED Location: [facility] / [facility] (Cath) Providers: Daxa Valenzuela MD Clinical information reviewed: Allergies Meds Physical Exam Airway Mallampati: III Cardiovascular Rhythm: regular Rate: normal Dental Pulmonary Breath sounds clear to auscultation Abdominal Anesthesia Plan ASA 3 other (Moderate Sedation ) Anesthetic plan and risks discussed with patient. Use of blood products discussed with patient who consented to blood products. 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 [...] long. Regarding family history: Maternal grandmother had TX in her left 70s, maternal grandfather had [...] calcium 8.8 Total bi (more content not included)...[facility] 03-02-2024 Miscellaneous Notes* Telephone Encounter - Anabell Herrera CMA - 03/02/2024 1:22 PM EDT ----- Message from Dr. Lee Quiles DO sent at 03/02/2024 9:20 AM EDT ----- Please let patient know that she has Cool's esophagus and ask her whether she has indigestion ornot on the omeprazole 20 mg b.i.d.. Because if she does may want to increase that to 40 mg b.i.d.. Make sure that she knows Barretts increases her risk of esophageal cancer by 1- 2% and that she needs repeat EGD in 3 years for surveillance. She should avoid lots of caffeine alcohol or tobacco which contributes to reflux disease. ThanksDr. Santiago If she has any questions she can make an appointment to see me. * Telephone Encounter - Anabell Herrera CMA - 03/02/2024 1:22 PM EDT Spoke with patient regarding pathology results. Patient verbally understood with questions answeredto the best of my ability. Will have Dr. Quiles prescribe Omeprazole BID and send information on Cool's Esophagus in the mail. Recall to be put in chart. documented in this encounterSt. Albans HospitalCreww06-26-2024 Telephone encounter Note* Telephone Encounter - Anabell Herrera CMA - 03/02/2024 1:22 PM EDT ----- Message from Dr. Lee Quiles DO sent at 03/02/2024 9:20 AM EDT ----- Please let patient know that she has Cool's esophagus and ask her whether she has indigestion ornot on the omeprazole 20 mg b.i.d.. Because if she does may want to increase that to 40 mg b.i.d.. Make sure that she knows Barretts increases her risk of esophageal cancer by 1- 2% and that she needs repeat EGD in 3 years for surveillance. She should avoid lots of caffeine alcohol or tobacco which contributes to reflux disease. ThanksDr. Santiago If she has any questions she can make an appointment to see me. [facility]06-26-2024 Telephone encounter Note* Telephone Encounter - Anabell Herrera CMA - 03/02/2024 1:22 PM EDT Spoke with patient regarding pathology results. Patient verbally understood with questions answeredto the best of my ability. Will have Dr. Quiles prescribe Omeprazole BID and send information on Cool's Esophagus in the mail. Recall to be put in chart. [facility]02-15-2024 History of Present illness Narrative* Soraida Hawkins, SRINIVASAN-CABINET MAKER - 10/22/2023 3:30 PM EST Images from the original note were not [...] tablet (150 mcg total) by mouth in themorning., Disp: , Rfl: liothyronine (CYTOMEL) 5 MCG [...] mouth daily., Disp: , Rfl: peg 3350-sod sulf,dzcj-xlg-dtu 178.7-7.3-0.5 gram recon soln, Take 1 kit [...] evacuation preparation. Patient verbalizes understanding and wishes toproceed. Evaluation included: Preparing to see the patient (e.g., review of tests) Obtaining and/or reviewing separately obtained history Performing a medically appropriate examination and/or evaluation Counseling and educating the patient/family/caregiver Referring and communicating with other health managed care coordinator Family history of malignant neoplasm of colon [Z80.0] BETTY SMITH [facility] [place] This note was created with the assistance of a speech recognition program. While intending to generate a timely document that accurately reflects the content of the visit, no guarantee can be provided that every grammatical or spelling mistake has been or will be identified or corrected. Thank you for your understanding. BETTY Smith 10/22/23 1550 documented in this encounterThe Christ Hospital SystemEvaluation noteNo assessment information availableUniversity Hospitals Beachwood Medical Center Ctr Work Phone: Evaluation note* Diagnosis Family history of malignant neoplasm of colon- Primary Family history of colon cancer Family history of malignant neoplasm of gastrointestinal tract documented in this encounter [facility] SystemEvaluation note* Diagnosis Postoperative pain- Primary Other acute postoperative pain documented in this encounter [employer] [facility] AgileMesh [facility] CenterInstructionsNot on filedocumented in this encounter ProMedicSt. [facility]'s Hospital SystemInstructionsNot on filedocumented in this encounter [facility] SystemInstructionsNot on filedocumented in this encounter [facility] SystemInstructionsNot on filedocumented in this encounter [facility] SystemInstructionsNot on filedocumented in this [facility]Reason for visit Narrative* Auth/Cert (Routine)Specialty Diagnoses / ProceduresReferred By ContactReferred To Contact Diagnoses Complete tear of right rotator cuff, unspecified whether traumatic Complete tear of right rotator cuff, unspecified whether traumatic [M75.121] Procedures DE SURGICAL ARTHROSCOPY SHOULDER W/ROTATOR CUFF RPR RIGHT SHOULDER ARTHROSCOPIC ROTATOR CUFF REPAIR Hayes Madera MD [address] [place] [address] Phone: tel: fax: [employer] [facility] [employer] [address] [place] [address] Referral IDStatusReasonStart DateExpiration DateVisits RequestedVisits [id number] [facility] Summary Purpose Family History No Family History Records FoundNo Family History Records FoundNo Family History Records FoundNo Family History Records FoundNo Family History Records FoundNo Family History Records FoundNo Family History Records Found Advance Directives No Advanced Directives Records Found Date ActivatedDate InactivatedComments12/30/2024 2:44 PM Additional Source Comments INFORMATION SOURCE (unrecogn ized section and content) DATE CREATED AUTHOR 12/28/2022 [facility] DATE CREATED AUTHOR AUTHOR'S ORGANIZ ATION 02/20/2024 [facility] DATE CREATED AUTHOR AUTHOR'S ORGANIZ ATION 02/22/2024 [facility] DATE CREATED AUTHOR AUTHOR'S ORGANIZ ATION 12/24/2024 [facility] DATE CREATED AUTHOR AUTHOR'S ORGANIZ ATION 12/31/2024 [facility] DATE CREATED AUTHOR AUTHOR'S ORGANIZ ATION 06/19/2025 [facility] DATE CREATED AUTHOR AUTHOR'S ORGANIZ ATION 07/17/2025 [facility] Care Teams (unrecognized sec tion and content) Team Status: Inactive Member Role Status Dates Lee Quiles DO Attending Provider Active Start: February 19, 2024 End: February 19, 2024Team MemberRelationshipSpecialtyStart DateEnd Date Tano Bautista MD [address] [id number] PCP - GeneralFamily Medicine09/22/18Team MemberRelationshipSpecialtyStart DateEnd Date Tano Bautista MD [address] [place] [address] PCP - GeneralFamily Medicine09/22/18Team MemberRelationshipSpecialtyStart DateEnd Date Tano Bautista MD [address] [place] [address] PCP - GeneralFamily Medicine09/22/18Team MemberRelationshipSpecialtyStart DateEnd Date Tano Bautista MD [address] [place] [address] PCP - GeneralFamily Medicine09/22/18Team MemberRelationshipSpecialtyStart DateEnd Date Tano Bautista MD PCP - GeneralFamily Medicine09/22/18Team MemberRelationshipSpecialtyStart DateEnd Date Tano Bautista MD [address] [place] [address] PCP - GeneralFamily Medicine12/27/24 Goals (unrecognized section and content) Goals may be documented in a n alternate sectionNot on filedocumented as of this encounterNot on filedocumented as of this encounterNot on filedocumented as of this encounterNot on filedocumented as of this encounterNot on filedocumented as of this encounterNot on filedocumented as of this encounter Reason for Visit (unrecogniz ed section and content) ReasonCommentsColon Cancer Screening5 year recall, family history of colon cancerReasonCommentsMed Refill Ordered Prescriptions (unrec ognized section and content) PrescriptionSigDispense QuantityRefillsLast FilledStart DateEnd oxyCODONE-acetaminophen (PERCOCET) 5-325 MG per tablet Indications:Postoperative painTake 1-2 tablets by mouth every 4-6 hours as needed for Pain for up to 7 days. Intended supply: 7 days. Take lowest dose possible to manage pain Max Daily Amount: 12 tablets 30 tablet /10/2024 Scheduled Active and Recently Administ ered Medications (unrecognized section and content) Medication Order/ vancomycin (VANCOCIN) 1,000 mg in sodium chloride 0.9 % 250 mL IVPB ([id number]) (COMPLETED) 1,000 mg (11.6 mg/kg), IntraVENous, at 250 mL/hr, Administer over 60 Minutes, [place] TO [facility] On Thu12/30/24 at 0930, For 1 dose, Use 20mm (Blue) [id number] Adapter Preparation instructions: Attach medication vial to one 20mm (Blue) [id number] adapter. Aldair fluid bag with adapter, mix, and administerper order. * 1020 (New Bag - Provider: Roxane Griffin, RN) * 1120 (Stopped - Provider: Roxane Griffin, RN) Medication Order// lactated ringers infusion IntraVENous, at 100 mL/hr, CONTINUOUS, Starting on Thu12/30/24 at 0930, Pre-op (day of surgery) * 0946 (New Bag - Provider: Pola Kasper RN) * 1319 (NoRateChange - Provider: Casey Daniels ELECTRONIC ORGAN TECHNICIAN SENIOR TECHNICAL SUPPORT ANALYST) * 1415 (New Bag - Provider: Casey Daniels ELECTRONIC ORGAN TECHNICIAN SENIOR TECHNICAL SUPPORT ANALYST) * 1427 (Anesthesia Volume Adjustment - Provider: Casey Daniels ELECTRONIC ORGAN TECHNICIAN [facility]) Medication Order// sod chloride IRR soln 0.9 % 3,000 mL with EPINEPHrine 1 mg (CANCELED) PRN, Starting on Thu12/30/24 at 1358, Intra-op * 1358 (Given - Provider: Hayes Madera MD) sod chloride IRR soln 0.9 % irrigation (COMPLETED) CONTINUOUS PRN, Starting on Thu12/30/24 at 1357, Intra-op * 1357 (New Bag - Provider: Hayes Madera MD - Comment: Given up to sterile [...] BE BASED ON THE PRIMARY CLINICAL RECORDS. [facility]. provides no warranty or guarantee of the accuracy or completeness of information in this document.
[2025-08-17 11:58] LABS: Anion Gap 11.5; Blood Urea Nitrogen 10.0 mg/dL (7.0-18.0); Calcium 9.3 mg/dL (8.5-10.1); Carbon Dioxide 27.5 mmol/L (21.0-32.0); Chloride 104 mmol/L (98-107); Estimated GFR (African America >60 (>=60 mL/min/1.73m^2); Estimated GFR (Non-African Ame >60 (>=60 mL/min/1.73m^2); Glucose 146 mg/dL (74-106); Potassium 4.0 mmol/L (3.5-5.1); Sodium 139 mmol/L (136-145)
[2025-08-17 12:17] LABS: Glucose Urine UA >=1000 mg/dL (NEGATIVE)
[2025-08-17 12:26] LABS: Hematocrit 45.8 % (36.0-48.0); Hemoglobin 14.9 g/dL (12.0-16.0); Immature Granulocytes Abs Auto 0.01 10^3/uL (0.00-0.03); Immature Granulocytes Pct Auto 0.2 % (0.0-0.5); Lymphocytes Absolute Auto 1.7 10^3/uL (1.2-3.8); Mean Corpuscular HGB Conc 32.5 g/dL (29.9-35.2); Mean Corpuscular Hemoglobin 30.2 pg (26.7-34.0); Mean Corpuscular Volume 92.9 fL (81.0-99.0); Platelet Count 240 10^3/uL (150-450); Red Blood Count 4.93 10^6/uL (4.20-5.40); White Blood Count 4.9 10^3/uL (4.0-11.0)
[2025-08-17 12:33] LABS: Cast Seen? NONE SEEN #/LPF (NONE SEEN); Crystals Seen? None Seen #/HPF (None Seen)
[2025-08-17 12:34] LABS: Urine Culture Indicated NO
== END 2025-08-17 10:53 | disposition home or self-care (01) ==
LOC: LAB 10:57
PROVIDERS: PCP Family Medicine; Visit Provider Orthopaedic Surgery
DX: Z01.812 Encounter for preprocedural laboratory examination (principal); Z01.818 Encounter for other preprocedural examination; Z22.322 Carrier or suspected carrier of Methicillin resistant Staphylococcus aureus
CPT/HCPCS: 36415; 80048; 81001; 85025; 87081; 93005